=== PATIENT | female | born 1945 | race Caucasian/White ===

== ENCOUNTER 2018-09-11 10:12 | Inpatient (IN) | payer OTHER ==
--- NOTE | 2018-09-11 13:44 | R.PREADM ---
SCREENING DATE AND TIME 09/11/2018 10:24 (SHOP [facility]OUTER) ANTICIPATED REHAB ADMISSION DATE 09/13/2018 REFERRING FACILITY [facility] REFERRAL DATE AND TIME 09/11/2018 10:24 (SHOP ROUTER) REFERRAL ROOM# [id number] ACUTE ADMIT DATE 09/05/2018 Previous Rehabilitation(s): No. REFERRING PHYSICIAN Jose L Downey REHAB FACILITY [facility] CLINICAL LIAISON Shawanda Sepulveda PHYSICIAN REVIEWER Dr. Delmer Gonzalez M.D. MR# [id number] NAME [place] SAND[place] ADDRESS [address] [facility] [place] [address] DATE OF 1945 AGE 73 SSN# [id number] GENDER female MARITAL STATUS RACE white ADMIT FROM 02 - [facility] PRE-HOSPITAL LIVING SETTING 01 - Home (private home/apt. board/care, assisted living, correction, transitional living) HOME TYPE AND DETAILS Type of home: apartment # of levels in the residence: 2 # of steps within the residence: 0 # of steps to enter the residence: 13 PRE-HOSPITAL LIVING WITH Family/Relatives FAMILY SUPPORT Yes PRIMARY FAMILY CONTACT NAME Braulio Espinoza PRIMARY FAMILY CONTACT PHONE PHONE PRIMARY FAMILY CONTACT ON ADM.? no IS PRIMARY FAMILY CONTACT AUTH. REP.? no 1ST EMERGENCY CONTACT Braulio Espinoza 1ST CONTACT PHONE PHONE 1ST CONTACT ON ADM. no IS 1ST CONTACT AUTH. REP.? no PHONE 2ND CONTACT ON ADM.? no PATIENT EMPLOYMENT STATUS Retired (for age) PATIENT EMPLOYER No Employer PAYOR INFORMATION: 1ST PAYOR NAME MEDICARE 1ST PAYOR PHONE [phone] 1ST PAYOR INJURY/ILLNESS DUE TO ACCIDENT? No ANOTHER LIBERTARIAN RESPONSIBLE? 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 is a 73 yo Right-handed white female. On 09/05/2018 she was admitted to [facility] with diagnosis Closed Displaced Midcerv ical Frcature of Right Femur. Her impairment category is Orthopaedic Disorders 08 - Unilateral Hip Fracture (08.11). Pre-morbidly, Pt. was independent/mod-I in Self-Care, Locomotion, Sphincter Control, Transfers Contro l, Communication, and Social Cognition; and she had good Sphincter Control. Currently, she has deficits of Balance, Locomotion, Endurance, Safety Awareness, Transfers Control, a nd Self-Care. Pt. is now referred to [facility] for acute in-patient rehabilitation in order to maximize patient's functional independence in activities of daily living, strength, ROM, and mobi lity. Patient has realistic goal of being discharged at assistance level 6-Josias to reside at Home with Fam alma delia/Relatives. Georgia Sanders is a 73 year old female that lives in a 2nd Floor Apartment with 13 steps up with no elevator with her granddaughter. Patient is ambulatory with the use of cane. On 09/07/2018, she sustained a fall after her shoes got stuck on the carpet and was admitted to [facility] and treated. She is now medically stable but in need of 24-hour nursing, doctor supervision and oversite while receiving active and ongoing is reasonably expected to participate in 3hours of therapy a day/15 hours per week and receive care with an intensive interdisciplinary approach. 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 Treatment - Per Physician's O rders. REVIEW OF SYSTEMS: - Gen Alert and awake Lying in bed No apparent distress Oriented to: person, time, and place - Vital Signs Temperature: 98 F SBP/DBP: 145/65 Pulse: 71 Resp: 16 Vital signs stable, afebrile - CVS RRR VITAL SIGNS Temperature: 98 F SBP/DBP: 145/65 Pulse: 71 Resp: 16 Vital signs stable, afebrile CURRENT SPHINCTER CONTROL: Pre-hospital bladder status: continent # of bladder accidents in the last 7 days prior to screenin Pre-hospital bowel status: continent # of bowel accidents in the last 7 days prior to screenin Last Bowel Movement Date: DETAILED CURRENT FUNCTIONAL STATUS: - Bladder accident frequency: Ind - No accidents in the past 7 days - Bowel accident frequency: Ind - No accidents in the past 7 days - Walking score based on distance walked: 1(<=50ft) - Wheelchair score based on distance traveled: 0(N/A) FUNCTIONAL STATUS: - Self-Care A. Eating Ind Ind B. Grooming Ind Ind C. Bathing Ind sup D. Dressing - Upper Ind sup E. Dressing - Lower Ind modA F. Toileting Ind maxA - Sphincter Control G: Bladder control Ind Ind H: Bowel control Ind Ind - Transfers Control I. Bed/Chair/Wheelchair Ind min-to-modA J. Toilet Ind modA K. Tub/Shower Ind ADNO - Locomotion L. Walk/Wheelchair (C) Ind modA L. Walk/Wheelchair (W) Ind modA M. Stairs Ind ADNO - Communication N. Comprehension (B) Ind Josias O. Expression (B) Ind Josias - Social Cognition P. Social Interaction Ind Josias Q. Problem Solving Ind Josias R. Memory Ind Josias - Endurance Fair - Balance Fair - Safety Awareness Fair CURRENT FUNC. DEFICITS: Balance, Locomotion, Endurance, Safety Awareness, Transfers Control, and Self-Care THERAPY NOTES FROM ACUTE CARE: Attached. SPECIAL NEEDS: - Safety Concerns Skin breakdown precautions needed due to skin breakdown risk PRECAUTIONS: - Posterior Hip Precaution No adduction across midline No external rotation No hip flexion >90 degrees No internal rotation No wheel chair propulsion - Weight Bearing Precaution WBAT right LE PATIENT NEEDS ACTIVE AND ONGOING THERAPEUTIC INTERVENTION OF MULTIPLE THERAPY DISCIPLINES, INCLUDING: - Occupational Therapy Evaluate and Treat. - Physical Therapy Evaluate and Treat. PATIENT NEEDS CLOSE MEDICAL SUPERVISION BY A REHABILITATION PHYSICIAN FOR: Bowel and Bladder Management Coordination of Treatment Team Diabetes Management Medical and Co-Morbidity Management Wound Care DVT Management Pain Management PATIENT REQUIRES 24X7 REHAB NURSING FOR MEDICAL AND FUNCTIONAL MGT. OF THE FOLLOWING DEFICITS: ADL's Ambulation Bowel and Bladder Management Cognition Communication Disease Management Medication Management Patient/Family Education Providing Safe Environment Skin Integrity Transfers Pain Management PATIENT REQUIRES INTENSIVE, COORDINATED INTERDISCIPLINARY APPROACH TO REHAB: Arranging Home Equipment/Services Discharge Planning Family Intervention/Training Gaming Host/Case Management PATIENT REHAB POTENTIAL: Expected level of measurable improvement will be of a practical value to patient's functional capacit y or adaptations to impairments Has a viable Discharge Plan Medically appropriate; condition is sufficiently stable to participate in intensive rehab program Patient is able and expected to receive 3 hours of individualized therapy daily on at least 5 of ever y 7 days Patient's prognosis for significant practical improvement within a reasonable period of time appears Good DISCHARGE PLAN: - Estimated Length of Stay (days) 14. - Consensus on plan Discharge plan has been discussed with primary caregiver. Patient/Family is in agreement with the see n. Primary caregiver is in agreement with the plan. - Patient/Family Goals Return home with assistance. - Planned Living Setting Upon Discharge Home, to live with Family/Relatives. RECOMMENDED CARE LEVEL: IRF RECOMMENDATION DETAILS: Recommended Admission to Comprehensive Rehabilitation Program to Increase Functional [place] SCREENER'S COMPLETENESS CONFIRMATION: - Screening Confirmation The patient data collection on this preadmission screening form is finished PHYSICIANS REVIEW AND ADMISSION DETERMINATION Admit - Based on my review of the Pre-Admission Screening results, in my medical judgment and experie nce, I concur with the findings and recommend admission to [facility], as this patient requires an IRF level of care. SIGNATURE PANEL: Clinical Liaison - [electronically] signed by Shawanda Sepulveda on 09/11/2018 at 10:56 ([facility]OP [facility]TER) Physician Reviewer - [electronically] signed by Dr. Delmer Gonzalez M.D. on 09/11/2018 at 13:44 (SHOP ROUTER )
--- OUTSIDE RECORDS SUMMARY | 2018-09-11 17:31 | XMS REPORT | Clinical Summary ---
:1945 Author Organization [facility] Address [address] [place] [address] Care Team Providers Name Role Phone Jerry Johnson MD Primary Care Provider Allergies No Known Allergies Medications Medication Sig Dispensed Refills Start Date End Date Status metFORMIN Take 1,000 mg 0 Active (GLUCOPHAGE) 1,000 by mouth 2 mg tablet (two) times a day with meals. metoprolol tartrate Take 25 mg by 0 Active (LOPRESSOR) 25 mg mouth 2 (two) tablet times a day. atorvastatin Take 10 mg by 0 Active (LIPITOR) 10 MG mouth nightly. tablet spironolactone Take 50 mg by 0 Active (ALDACTONE) 50 MG mouth daily. tablet loratadine Take 10 mg by 0 Active (CLARITIN) 10 mg mouth nightly. tablet venlafaxine XR Take 150 mg by 0 Active (EFFEXOR-XR) 150 MG mouth 2 (two) 24 hr capsule times a day. BUMETanide (BUMEX) 1 Take 1 mg by 0 Active MG tablet mouth daily. pioglitazone (ACTOS) Take 15 mg by 0 Active 15 MG tablet mouth daily. digOXIN (LANOXIN) Take 125 mcg 0 Active 125 mcg tablet by mouth daily. aspirin (ECOTRIN) 81 Take 81 mg by 0 Active MG enteric coated mouth daily. tablet clopidogrel (PLAVIX) Take 75 mg by 0 Active 75 mg tablet mouth daily. levothyroxine Take 200 mcg 0 Active (SYNTHROID, LEVOXYL) by mouth every 200 mcg tablet morning. docosahexanoic Take by mouth. 0 Active acid/epa (FISH OIL 2 twice a day ORAL) multivitamin with Take 1 tablet 0 Active minerals tablet by mouth daily. galantamine ER Take 1 capsule 30 capsule 5 07/17/2018 Active (RAZADYNE ER) 16 MG (16 mg total) 9 24 hr by mouth daily capsuleIndications: with breakfast Late onset for 90 days. Alzheimer's disease with behavioral disturbance buPROPion XL Take 1 tablet 90 tablet 1 07/17/2018 Active (WELLBUTRIN XL) 150 (150 mg total) 9 MG 24 hr by mouth tabletIndications: daily. Depression, unspecified depression type gabapentin Take 1 capsule 30 capsule 0 09/11/2018 Active (NEURONTIN) 300 mg (300 mg total) 9 capsule by mouth nightly for 30 days. primidone (MYSOLINE) Take 1 tablet 30 tablet 0 09/11/2018 Active 50 MG tablet (50 mg total) 9 by mouth nightly for 30 days. insulin NPH (NovoLIN Inject 51 10 mL 12 09/11/2018 Active N NPH U-100 Insulin) Units under 9 100 unit/mL the skin 2 injection (two) times a day after meals for 30 days. HYDROcodone-acetamin Take 1 tablet 28 tablet 0 09/11/2018 Active ophen (NORCO) 5-325 by mouth every 9 mg per tablet 8 (eight) hours as needed for moderate pain for up to 7 days. Max Daily Amount: 3 tablets levothyroxine Take 175 mcg 0 Discontinued (SYNTHROID, LEVOXYL) by mouth every 8 175 mcg tablet morning. venlafaxine Take 75 mg by 0 Discontinued (EFFEXOR) 75 MG mouth 2 (two) 8 tablet times a day. insulin NPH human Inject under 0 Discontinued isophane (NOVOLIN N the skin. 9 NPH U-100 INSULIN Patient takes SUBQ) 50 in the morning and at night. buPROPion XL Take 1 tablet 30 tablet 3 04/24/2018 Discontinued (WELLBUTRIN XL) 150 (150 mg total) 8 MG 24 hr by mouth tabletIndications: daily. Depression, unspecified depression type galantamine ER Take 1 capsule 30 capsule 2 04/24/2018 Discontinued (RAZADYNE ER) 8 MG (8 mg total) 8 24 hr by mouth daily capsuleIndications: with Late onset breakfast. Alzheimer's disease with behavioral disturbance Active Problems Problem Noted Date Closed displaced midcervical fracture of right femur 09/06/2018 Overview: Added automatically from request for surgery [id number] Closed right hip fracture 09/05/2018 Encounters Date Type Specialty Care Team Description 09/07/2018 Anesthesia Event General Surgery Bradley Bagley MD 09/07/2018 Surgery General Surgery Jose L Downey Right Hip Bipolar MD Reji Hemiarthroplasty 09/06/2018 Transcribe Orders Orthopedic Surgery Jose L Downey Closed displaced MD Reji midcervical fracture of right femur, initial encounter (HCC) (Primary Dx) 09/05/2018 - [facility] Closed displaced 09/11/2018 Encounter Medicine MD Moriah midcervical fracture of Ty, Trungmichel Kenyona right femur, initial MD Cris encounter (HCC) 07/19/2018 Social Work Neurology Sena Arnold LCSW 07/17/2018 Office Visit Neurology Alem, Late onset Alzheimer's disease with behavioral disturbance (Primary Dx); Rochelle Depression, unspecified depression type; MD Olayinka PRINCE (obstructive sleep apnea); Primary insomnia; Multifactorial gait disorder; Diabetic polyneuropathy associated with type 2 diabetes mellitus (HCC); Physical deconditioning 07/10/2018 Telephone Neurology Rochelle Ferrara MD 07/06/2018 Telephone Neurology Rochelle Ferrara MD 06/15/2018 Refill Neurology Melissa Ayala RN 06/14/2018 Refill Neurology Melissa Ayala RN 04/24/2018 Office Visit Neurology Alem, Late onset Alzheimer's disease with behavioral disturbance (Primary Dx); Rochelle Depression, unspecified depression type; MD Olayinka Acquired hypothyroidism; Multifactorial gait disorder; Diabetic polyneuropathy associated with type 2 diabetes mellitus; Physical deconditioning; Primary insomnia; PRINCE (obstructive sleep apnea); Benign essential tremor 03/06/2018 Hospital Radiology [facility], Encounter Rochelle Bhagat MD 03/06/2018 [facility] Radiology [facility], Dementia with Encounter Rochelle behavioral disturbance, MD Olayinka unspecified dementia type 03/06/2018 Hospital Radiology [facility], Primary Parkinsonism Encounter Rochelle Bhagat MD 01/31/2018 Lab Lab [place], Memory impairment; Rochelle Diabetic polyneuropathy associated with type 2 diabetes mellitus MD Olayinka 01/31/2018 Office Visit Neurology Alem, Primary Parkinsonism (Primary Dx ); Rochelle Dementia with behavioral disturbance, unspecified dementia type ; MD Olayinka Memory impairment; PRINCE (obstructive sleep apnea); Multifactorial gait disorder; Diabetic polyneuropathy associated with type 2 diabetes mellitus; Physical deconditioning; Sedentary lifestyle; Depression, unspecified depression type; Anxiety 01/22/2018 Hospital Pulmonology Trung Monroy Obstructive chronic Encounter MD Cris bronchitis without exacerbation 01/22/2018 Hospital Pulmonology Trung Monroy Obstructive chronic Encounter MD Cris bronchitis without exacerbation 01/15/2018 Transcribe Orders Access Trung Monroy chronic MD Cris bronchitis without exacerbation (Primary Dx) after 09/10/2017 Family History Medical History Relation Name Comments Alzheimer's disease Brother Heart attack Father Heart disease Father Parkinsonism Father Alzheimer's disease Mother Relation Name Status Comments Brother Father Mother Social History Tobacco Use Types Packs/Day Years Used Date Never Smoker Smokeless Tobacco: Never Used Tobacco Cessation: Counseling Given: Yes Alcohol Use Drinks/Week oz/Week Comments No Sex Assigned at Date Recorded Not on file Job Start Date Occupation Industry Not on file Not on file Not on file Travel History Travel Start Travel End No recent travel history available. Last Filed Vital Signs Vital Sign Reading Time Taken Blood Pressure 124/58 09/11/2018 11:23 AM SPEECH CORRECTION CONSULTANT Pulse 75 09/11/2018 11:23 AM SPEECH CORRECTION CONSULTANT Temperature 36.7 C (98 F) 09/11/2018 11:23 AM SPEECH CORRECTION CONSULTANT Respiratory Rate 16 09/11/2018 11:23 AM SPEECH CORRECTION CONSULTANT Oxygen Saturation 96% 09/11/2018 11:45 AM SPEECH CORRECTION CONSULTANT Inhaled Oxygen Concentration - - Weight 99.6 kg (219 lb 8 oz) 09/11/2018 3:41 AM SPEECH CORRECTION CONSULTANT Height 170.2 cm (5' 7") 09/05/2018 10:36 PM SPEECH CORRECTION CONSULTANT Body Mass Index 34.38 09/11/2018 3:41 AM SPEECH CORRECTION CONSULTANT Plan of Treatment Date Type Specialty Care Team Description 12/20/2018 Office Visit Neurology Rochelle Ferrara MD [address] [facility] [address] [place] [address] [phone] Health Maintenance Due Date Last Done Comments DIABETIC RETINAL EYE EXAM 1945 DIABETIC FOOT EXAM 1957 URINE MICROALBUMIN 1957 BREAST CANCER SCREENING 1997 COLON CANCER SCREENING 1997 SHINGLES VACCINES (1 of 2) 1997 PNEUMOCOCCAL POLYSACCHARIDE VACCINE AGE 65 AND OVER 2012 PNEUMOCOCCAL-13 2012 INFLUENZA VACCINE 03/07/2018 Implants Implanted Type Area Manager Fire Device Shelf Model / Serial / Lot Identifier Expiration Date Head Fml Tprd Co-Cr 28x0mm V40 Lfit - [id number] Hip Joint Right NIURKA 05/30/2023 [id number] / Implanted: Qty: 1 on 09/07/2018 by Jose L Downey MD Implants : Hip ORTHOPEDICS / [id number] Size 6 Accolade Ii 132 Deg, Hip Stem - [id number] IPM Right NIURKA 01/30 [id number] / Implanted: Qty: 1 on 09/07/2018 by Jose L Downey MD IMPLANT : Hip ORTHOPEDICS / DEVICES [id number] Uhr Bipolar [id number] - [id number] IPM Right NIURKA 03/23/2023 [id number] / Implanted: Qty: 1 on 09/07/2018 by Jose L Downey MD IMPLANT : Hip ORTHOPEDICS / DEVICES [id number] Procedures Procedure Name Priority Date/Time Associated Comments Diagnosis POC GLUCOSE Routine 09/11/2018 12:43 Results for this PM SPEECH CORRECTION CONSULTANT procedure are in the results section. ESTIMATED GFR Routine 09/11/2018 5:10 Results for this AM SPEECH CORRECTION CONSULTANT procedure are in the results section. BASIC METABOLIC PANEL Routine 09/11/2018 5:10 Results for this AM SPEECH CORRECTION CONSULTANT procedure are in the results section. CBC WITH PLATELET AND Routine 09/11/2018 5:10 Results for this DIFFERENTIAL AM SPEECH CORRECTION CONSULTANT procedure are in the results section. POC GLUCOSE Routine 09/10/2018 5:08 Results for this PM SPEECH CORRECTION CONSULTANT procedure are in the results section. POC GLUCOSE Routine 09/10/2018 12:09 Results for this PM SPEECH CORRECTION CONSULTANT procedure are in the results section. POC GLUCOSE Routine 09/10/2018 6:39 Results for this AM SPEECH CORRECTION CONSULTANT procedure are in the results section. POC GLUCOSE Routine 09/09/2018 10:10 Results for this PM SPEECH CORRECTION CONSULTANT procedure are in the results section. POC GLUCOSE Routine 09/09/2018 5:08 Results for this PM SPEECH CORRECTION CONSULTANT procedure are in the results section. POC GLUCOSE Routine 09/09/2018 12:32 Results for this PM SPEECH CORRECTION CONSULTANT procedure are in the results section. POC GLUCOSE Routine 09/09/2018 5:47 Results for this AM SPEECH CORRECTION CONSULTANT procedure are in the results section. CBC HEMOGRAM Routine 09/09/2018 5:20 Results for this AM SPEECH CORRECTION CONSULTANT procedure are in the results section. POC GLUCOSE Routine 09/08/2018 10:19 Results for this PM SPEECH CORRECTION CONSULTANT procedure are in the results section. POC GLUCOSE Routine 09/08/2018 5:28 Results for this PM SPEECH CORRECTION CONSULTANT procedure are in the results section. POC GLUCOSE Routine 09/08/2018 11:37 Results for this AM SPEECH CORRECTION CONSULTANT procedure are in the results section. POC GLUCOSE Routine 09/08/2018 6:07 Results for this AM SPEECH CORRECTION CONSULTANT procedure are in the results section. ESTIMATED GFR Routine 09/08/2018 6:00 Results for this AM SPEECH CORRECTION CONSULTANT procedure are in the results section. BASIC METABOLIC PANEL Routine 09/08/2018 6:00 Results for this AM SPEECH CORRECTION CONSULTANT procedure are in the results section. HC COMPLETE BLD COUNT Routine 09/08/2018 6:00 Results for this W/AUTO DIFF AM SPEECH CORRECTION CONSULTANT procedure are in the results section. POC GLUCOSE Routine 09/07/2018 8:52 Results for this PM SPEECH CORRECTION CONSULTANT procedure are in the results section. POC GLUCOSE Routine 09/07/2018 3:49 Results for this PM SPEECH CORRECTION CONSULTANT procedure are in the results section. XR PELVIS 1 OR 2 VW Routine 09/07/2018 3:09 Results for this PM SPEECH CORRECTION CONSULTANT procedure are in the results section. POC GLUCOSE Routine 09/07/2018 2:35 Results for this PM SPEECH CORRECTION CONSULTANT procedure are in the results section. XR PELVIS 1 OR 2 VW Routine 09/07/2018 1:38 Results for this PM SPEECH CORRECTION CONSULTANT procedure are in the results section. OK AN ELECTIVE Routine 09/07/2018 12:29 ENDOTRACHEAL AIRWAY PM SPEECH CORRECTION CONSULTANT Procedure Note - Steve Lyn CRNA - 09/07/2018 12:29 PM SPEECH CORRECTION CONSULTANT ANESTHESIA INTUBATION Date/Time: 09/07/2018 12:20 PM Performed by: Steve Lyn CRNA Authorized by: Bradley Bagley MD Location: OR Urgency: Elective Difficult Airway: No Anesthesiologist: Bradley Bagley MD Resident/DIRECTOR REGULATORY AFFAIRS/AA: Steve Lyn CRNA Performed by: anesthesiologist and resident/DIRECTOR REGULATORY AFFAIRS/AA Preoxygenated with 100% O2: Yes C-spine Precautions Maintained Throughout: Yes Mask Ventilation: Assisted mask Final Airway Type: Endotracheal airway Final Endotracheal Airway: ETT Cuffed: Yes Technique Used: Direct laryngoscopy Devices/Methods Used in Placement: Intubating stylet Insertion Site: Oral Blade Type: Jauregui Laryngoscope Blade/Videolaryngoscope Blade Size: 2 ETT Size (mm): 7.0 Cuff at minimum occlusion pressure: Yes Measured from: Lips ETT to Lips (cm): 22 Placement Verified by: CO2 detection, direct visualization and equal breath sounds Laryngoscopic view: Grade IIa - partial view of glottis Rapid Sequence Induction (RSI): No Modified RSI: No Number of Attempts at Approach: 1 POC GLUCOSE Routine 09/07/2018 11:07 Results for this AM SPEECH CORRECTION CONSULTANT procedure are in the results section. ECG PRE/POST OP Routine 09/07/2018 8:44 Results for this AM SPEECH CORRECTION CONSULTANT procedure are in the results section. POC GLUCOSE Routine 09/07/2018 5:38 Results for this AM SPEECH CORRECTION CONSULTANT procedure are in the results section. TYPE AND SCREEN Routine 09/07/2018 4:50 Results for this AM SPEECH CORRECTION CONSULTANT procedure are in the results section. PROTHROMBIN TIME WITH Routine 09/07/2018 4:50 Results for this INR AM SPEECH CORRECTION CONSULTANT procedure are in the results section. ESTIMATED GFR Routine 09/07/2018 4:50 Results for this AM SPEECH CORRECTION CONSULTANT procedure are in the results section. BASIC METABOLIC PANEL Routine 09/07/2018 4:50 Results for this AM SPEECH CORRECTION CONSULTANT procedure are in the results section. HC COMPLETE BLD COUNT Routine 09/07/2018 4:50 Results for this W/AUTO DIFF AM SPEECH CORRECTION CONSULTANT procedure are in the results section. POC GLUCOSE Routine 09/07/2018 2:04 Results for this AM SPEECH CORRECTION CONSULTANT procedure are in the results section. POC GLUCOSE Routine 09/06/2018 8:44 Results for this PM SPEECH CORRECTION CONSULTANT procedure are in the results section. XR FEMUR 2 VW RIGHT Routine 09/06/2018 4:36 Results for this PM SPEECH CORRECTION CONSULTANT procedure are in the results section. POC GLUCOSE Routine 09/06/2018 4:06 Results for this PM SPEECH CORRECTION CONSULTANT procedure are in the results section. POC GLUCOSE Routine 09/06/2018 11:33 Results for this AM SPEECH CORRECTION CONSULTANT procedure are in the results section. POC GLUCOSE Routine 09/06/2018 5:56 Results for this AM SPEECH CORRECTION CONSULTANT procedure are in the results section. B NATRIURETIC PEPTIDE Routine 09/06/2018 5:30 Results for this AM SPEECH CORRECTION CONSULTANT procedure are in the results section. XR HIP 2-3 VIEWS Routine 09/06/2018 5:07 Results for this RIGHT AM SPEECH CORRECTION CONSULTANT procedure are in the results section. POC GLUCOSE Routine 09/06/2018 2:03 Results for this AM SPEECH CORRECTION CONSULTANT procedure are in the results section. POC GLUCOSE Routine 09/06/2018 12:16 Results for this AM SPEECH CORRECTION CONSULTANT procedure are in the results section. URINALYSIS SCREEN AND Routine 09/05/2018 10:30 Results for this MICROSCOPY, WITH PM SPEECH CORRECTION CONSULTANT procedure are in REFLEX TO CULTURE the results section. URINE CULTURE Routine 09/05/2018 10:30 Results for this PM SPEECH CORRECTION CONSULTANT procedure are in the results section. POC GLUCOSE Routine 09/05/2018 10:01 Results for this PM SPEECH CORRECTION CONSULTANT procedure are in the results section. NM BRAIN SPECT W I Routine 03/06/2018 2:10 Primary Parkinsonism Results for this 123 DATSCAN PM CDT procedure are in the results section. MRI BRAIN WO CONTRAST Routine 03/06/2018 12:15 Dementia with Results for this PM CDT behavioral procedure are in disturbance, the results unspecified dementia section. type ZZESTIMATED GFR Routine 01/31/2018 3:15 Results for this PM CDT procedure are in the results section. HEMOGLOBIN A1C Routine 01/31/2018 3:15 Diabetic Results for this PM CDT polyneuropathy procedure are in associated with type 2 the results diabetes mellitus section. COMPREHENSIVE Routine 01/31/2018 3:15 Memory impairment Results for this METABOLIC PANEL PM CDT procedure are in the results section. VITAMIN B12 LEVEL Routine 01/31/2018 3:15 Memory impairment Results for this PM CDT procedure are in the results section. THYROID STIMULATING Routine 01/31/2018 3:15 Memory impairment Results for this HORMONE PM CDT procedure are in the results section. T4, FREE Routine 01/31/2018 3:15 Memory impairment Results for this PM CDT procedure are in the results section. HOMOCYSTINE, PLASMA Routine 01/31/2018 3:15 Memory impairment Results for this PM CDT procedure are in the results section. FOLATE LEVEL Routine 01/31/2018 3:15 Memory impairment Results for this PM CDT procedure are in the results section. HC COMPLETE BLD COUNT Routine 01/31/2018 3:15 Memory impairment Results for this W/AUTO DIFF PM CDT procedure are in the results section. ARTERIAL BLOOD GAS Routine 01/22/2018 2:07 Obstructive chronic Results for this PM CDT bronchitis without procedure are in exacerbation the results section. SPIROMETRY, Routine 01/22/2018 12:47 Obstructive chronic DIFFUSION, LUNG PM CDT bronchitis without VOLUMES exacerbation after 09/10/2017 Results POC glucose (09/11/2018 12:43 PM SPEECH CORRECTION CONSULTANT)Only the most recent of25 resultswithin the time period is included. POC glucose 300 (H) 65 - 99 mg/dL [facility] Comment: HOSPITAL RN Notified Meter ID: [id number] Retail Service Specialist: Jani Barry Performing Organization Address City/[facility] [email or web address] Phone Number [facility] [address] [place] [address] Estimated GFR (09/11/2018 5:10 AM SPEECH CORRECTION CONSULTANT)Only the most recent of3 resultswithin the time period is included. Estimated GFR 80 mL/min/1.73 m2 [facility] Comment: [facility] CatergoryUnitsInterpretation G1 >=90 Normal or high G2 60-89Mildly decreased [id number] to moderately decreased [id number] to severely decreased G4 15-29Severely decreased G5 <15Kidney failure The eGFR was calculated using the Chronic Kidney Disease Epidemiology Collaboration (CKD-EPI) equation. Interpretation is based on recommendations of the National Kidney Foundation-Kidney Disease Outcomes Quality Initiative (NKF-KDOQI) published in 2014. Specimen Plasma specimen Performing Organization Address City/[facility]/Zipcode Phone Number [facility] [address] [place] [address] CBC with platelet and differential (09/11/2018 5:10 AM SPEECH CORRECTION CONSULTANT)Only the most recent of4 resultswithin the time period is included. WBC 8.7 4.5 - 11.0 k/uL [facility] RBC 3.13 (L) 4.20 - 5.50 m/uL [facility] HGB 9.4 (L) 12.0 - 16.0 g/dL [facility] HCT 29.2 (L) 37.0 - 47.0 % [facility] MCV 93.3 82.0 - 100.0 fL [facility] MCH 30.0 27.0 - 34.0 pg [facility] MCHC 32.2 31.0 - 37.0 g/dL [facility] RDW - SD 47.0 37.0 - 55.0 fL [facility] MPV 10.4 6.9 - 11.0 fL [facility] Platelet count 193 150 - 400 K/uL [facility] Nucleated RBC 0.00 /100 WBC [facility] Neutrophils 64.9 39.0 - 69.0 % [facility] Lymphocytes 23.2 (L) 25.0 - 45.0 % [facility] Monocytes 8.2 0.0 - 10.0 % [facility] Eosinophils 2.4 0.0 - 5.0 % [facility] Basophils 0.5 0.0 - 1.0 % [facility] Immature granulocytes 0.8 0.0 - 1.0 % [facility] Specimen Blood Performing Organization Address City/State/Zipcode Phone Number [facility] [address] [place] [address] AND GENOMIC MEDICINE [facility] [address] [place] [address] HOSPITAL Basic metabolic panel (09/11/2018 5:10 AM SPEECH CORRECTION CONSULTANT)Only the most recent of3 resultswithin the time period is included. Sodium 137 135 - 148 mEq/L [facility] Potassium 3.9 3.5 - 5.0 mEq/L [facility] Chloride 98 98 - 112 mEq/L [facility] CO2 29 24 - 31 mEq/L [facility] Anion gap 10@ANIO 7 - 15 mEq/L [facility] BUN 14 8 - 23 mg/dL [facility] Creatinine 0.75 0.50 - 0.90 mg/dL [facility] Glucose 143 (H) 65 - 99 mg/dL [facility] Calcium 8.8 8.8 - 10.2 mg/dL [facility] Specimen Plasma specimen Performing Organization Address City/[facility] [email or web address] Phone Number [facility] [address] [place] [address] CBC hemogram (09/09/2018 5:20 AM SPEECH CORRECTION CONSULTANT) WBC 11.1 (H) 4.5 - 11.0 k/uL [facility] RBC 3.40 (L) 4.20 - 5.50 m/uL [facility] HGB 10.1 (L) 12.0 - 16.0 g/dL [facility] HCT 30.8 (L) 37.0 - 47.0 % [facility] MCV 90.6 82.0 - 100.0 fL [facility] MCH 29.7 27.0 - 34.0 pg [facility] MCHC 32.8 31.0 - 37.0 g/dL [facility] RDW - SD 47.0 37.0 - 55.0 fL [facility] MPV 10.4 6.9 - 11.0 fL [facility] Platelet count 172 150 - 400 K/uL [facility] Nucleated RBC 0.00 /100 WBC [facility] Specimen Blood Performing Organization Address City/[facility] [email or web address] Phone Number [facility] [address] [place] [address] XR Pelvis 1 Or 2 Vw (09/07/2018 3:09 PM SPEECH CORRECTION CONSULTANT)Only the most recent of2 resultswithin the time period is included. Narrative Performed At EXAMINATION:XR PELVIS 1 OR 2 VW [facility] INDICATION:Post Op COMPARISON: Right femur radiographs from September 06, 2018 IMPRESSION: Interval cementless right hip hemiarthroplasty. No immediate hardware complications. Lucency at the intertrochanteric region is likely postoperative. Soft tissue gas compatible with perioperative state. [facility]-[id number] Procedure Note Hm Interface, Radiology Results Incoming - 09/07/2018 3:23 PM SPEECH CORRECTION CONSULTANT EXAMINATION: XR PELVIS 1 OR 2 VW INDICATION: Post Op COMPARISON: Right femur radiographs from September 06, 2018 IMPRESSION: Interval cementless right hip hemiarthroplasty. No immediate hardware complications. Lucency at the intertrochanteric region is likely postoperative. Soft tissue gas compatible with perioperative state. [facility]-[id number] Performing Organization Address [facility] [email or web address] Phone Number [facility] [address] [place] [address] ECG Pre/Post Op (09/07/2018 8:44 AM SPEECH CORRECTION CONSULTANT) Ventricular rate 75 [facility] Atrial rate 75 [facility] OK interval 162 [facility] QRSD interval 98 [facility] QT interval 370 [facility] QTC interval 413 [facility] P axis 1 76 [facility] QRS axis 1 -37 [facility] T wave axis 73 [facility] EKG impression Normal sinus rhythm-Left axis deviation-Anteroseptal infarct ( cited on or before 07-OCT-2014)-Abnormal ECG-In automated comparison with ECG of 13-MAR-2016 00:24,-Questionable change in initial forces of Anterior leads- Nonspecific T wave abnormality, [facility] improved in Anterior leads- Narrative Performed At Performing Organization Address [facility] Phone Number [facility] M[facility] [address] [place] [address] Prothrombin time with INR (09/07/2018 4:50 AM SPEECH CORRECTION CONSULTANT) Prothrombin time 13.4 11.5 - 14.5 sec [facility] INR 1.1 [facility] Comment: [facility] The International Normalized Ratio (INR) is a therapeutic monitoring tool for patients who are stable on oral anticoagulant therapy. An INR of 2.0-3.0 is suggested for deep vein thrombosis/pulmonary embolism. Specimen Blood Performing Organization Address [facility]/Zipcode Phone Number [facility] [address] [place] [address] AND GENOMIC MEDICINE [facility] [address] [place] [address] HOSPITAL Type and screen (09/07/2018 4:50 AM SPEECH CORRECTION CONSULTANT) ABO grouping A [facility] Rh type POS [facility] Antibody screen (gel) NEG [facility] Specimen Blood Performing Organization Address City/[facility] [email or web address] Phone Number [facility] [address] [place] [address] XR Femur 2 Vw Right (09/06/2018 4:36 PM SPEECH CORRECTION CONSULTANT) Narrative Performed At Examination: XR FEMUR 2 VW RIGHT [facility] Clinical history: Fracturefemur Comparison: None Impression: 1. There is no fracture or acute osseous pathology. 2. 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 3. If there is high or persistent concern for subcapital femoral fracture, right hip series should be considered. [facility]-[id number] Procedure Note Interface, Radiology Results Incoming - 09/06/2018 5:34 PM SPEECH CORRECTION CONSULTANT Examination: XR FEMUR 2 VW RIGHT Clinical history: Fracture femur Comparison: None Impression: 1. There is no fracture or acute osseous pathology. 2. 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 3. If there is high or persistent concern for subcapital femoral fracture, right hip series should be considered. [facility]-[id number] Performing Organization Address City/[facility]/Zipcode Phone Number [facility] [address] [place] [address] B natriuretic peptide (09/06/2018 5:30 AM SPEECH CORRECTION CONSULTANT) BNP 58 0 - 100 pg/mL [facility] Specimen Blood Performing Organization Address City/[facility]/Zipcode Phone Number [facility] [address] [place] [address] XR Hip 2-3 View Right (09/06/2018 5:07 AM SPEECH CORRECTION CONSULTANT) Narrative Performed At EXAMINATION:XR HIP 2-3 VIEWS RIGHT [facility] CLINICAL HISTORY:right hip fracture COMPARISON:None IMPRESSION: There is mildly impacted subcapital fracture of the right hip. Pelvis and left hip are intact. Mildly demineralized. [facility]-[id number] Procedure Note Interface, Radiology Results Incoming - 09/06/2018 6:53 AM SPEECH CORRECTION CONSULTANT EXAMINATION: XR HIP 2-3 VIEWS RIGHT CLINICAL HISTORY: right hip fracture COMPARISON: None IMPRESSION: There is mildly impacted subcapital fracture of the right hip. Pelvis and left hip are intact. Mildly demineralized. [facility]-[id number] Performing Organization Address City/State/Zipcode Phone Number [facility] [address] [place] [address] Urinalysis screen and microscopy, with reflex to culture (09/05/2018 10:30 PM SPEECH CORRECTION CONSULTANT) Specimen site Catheterized [facility] Color, UA Yellow [facility] Appearance, UA Clear [facility] Specific gravity, UA 1.014 1.001 - 1.030 [facility] pH, UA 8.0 5.0 - 9.0 [facility] Protein, UA Negative Negative [facility] Glucose, UA Negative Negative [facility] Ketones, UA Trace (A) Negative [facility] Bilirubin, UA Negative Negative [facility] Blood, UA Negative Negative [facility] Nitrite, UA Negative Negative [facility] Urobilinogen, UA <2.0 <2.0 E.U./dL [facility] Leukocyte esterase, UA Negative Negative [facility] Round epithelial cells, UA <1 0 - 5 /HPF [facility] WBC, UA 1 0 - 4 /HPF [facility] RBC, UA 5 0 - 5 /HPF [facility] Bacteria, UA None seen None seen [facility] Yeast, UA None seen [facility] Yeast with pseudohyphae, UA None seen [facility] Specimen Urine Performing Organization Address City/[facility]/Zipcode Phone Number [facility] [address] [place] [address] AND [facility] MEDICINE [facility] [id number] [place] [address] HOSPITAL Urine culture (09/05/2018 10:30 PM SPEECH CORRECTION CONSULTANT) Urine culture SEE COMMENTComment: Bacteriuria [facility] screen negative. HOSPITAL Performing Organization Address City/[facility]/Zipcode Phone Number [facility] [address] [place] [address] AND [facility] [address] [facility] [address] Brain Spect W I 123 Datscan (03/06/2018 2:10 PM CDT) Narrative Performed At PROCEDURE:NM BRAIN SPECT W I 123 DATSCAN [facility] INDICATION:Tremor.Primary parkinsonism. TECHNIQUE: The patient was pretreated with potassium iodide drops for thyroid protection and then injected with 4 mCi of I-123 DaTscan IV. Brain SPECT imaging was then performed. FINDINGS:Striatal uptake appears normal, bilaterally. IMPRESSION: 1.Negative study.No evidence for an underlying primary Parkinsonian syndrome. [facility]-[id number] Procedure Note Interface, Radiology Results Incoming - 03/06/2018 5:59 PM CDT PROCEDURE: NM BRAIN SPECT W I 123 DATSCAN INDICATION: Tremor. Primary parkinsonism. TECHNIQUE: The patient was pretreated with potassium iodide drops for thyroid protection and then injected with 4 mCi of I-123 DaTscan IV. Brain SPECT imaging was then performed. FINDINGS: Striatal uptake appears normal, bilaterally. IMPRESSION: 1. Negative study. No evidence for an underlying primary Parkinsonian syndrome. [facility]-[id number] Performing Organization Address City/State/Zipcode Phone Number [facility] [address] [place] [address] MRI Brain Wo Contrast (03/06/2018 12:15 PM CDT) Narrative Performed At EXAMINATION: MRI BRAIN WO CONTRAST [facility] CLINICAL HISTORY: F03.91 Unspecified dementia with behavioral disturbance, memory impairment COMPARISON:None TECHNIQUE: Multiplanar and multisequence MRI imaging of the brain was obtained without contrast. FINDINGS: No evidence of acute intracranial hemorrhage, mass, mass effect, acute infarct or midline shift. 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 Ventricles and sulci are normal in appearance for patient's age. No abnormal susceptibility. Basal cisterns are clear. Major intracranial flow voids are maintained. Bilateral lens extractions. Visualized paranasal sinuses and mastoid air cells are clear. IMPRESSION: 1. No acute intracranial abnormality. [facility]-[id number] Procedure Note Interface, Radiology Results Incoming - 03/06/2018 1:29 PM CDT EXAMINATION: MRI BRAIN WO CONTRAST CLINICAL HISTORY: F03.91 Unspecified dementia with behavioral disturbance, memory impairment COMPARISON: None TECHNIQUE: Multiplanar and multisequence MRI imaging of the brain was obtained without contrast. FINDINGS: No evidence of acute intracranial hemorrhage, mass, mass effect, acute infarct or midline shift. 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 Ventricles and sulci are normal in appearance for patient's age. No abnormal susceptibility. Basal cisterns are clear. Major intracranial flow voids are maintained. Bilateral lens extractions. Visualized paranasal sinuses and mastoid air cells are clear. IMPRESSION: 1. No acute intracranial abnormality. [id number] Performing Organization Address [facility] [email or web address] Phone Number [facility] [address] [place] [phone] Homocystine, plasma (01/31/2018 3:15 PM CDT) Homocysteine 10.1 0.0 - 15.0 umol/L [facility] DEPARTMENT OF Comment: PATHOLOGY AND GENOMIC The risk for coronary vascular disease increases progressively MEDICINE with homocysteine concentration.A 3.4 times greater risk is associated with a homocysteine concentration of greater than 15.8 umol/L as compared to a concentration below 14.1 umol/L. Specimen Plasma specimen Performing Organization Address [facility] [[email or web address] Phone Number [facility] DEPARTMENT [facility]OLOGY AND [address] [place] [address] [facility] Estimated GFR (01/31/2018 3:15 PM CDT) GFR Non Af Amer 71 mL/min/1.73 m2 [facility] DEPARTMENT OF PATHOLOGY AND [facility] GFR Af Amer 86 mL/min/1.73 m2 [facility] DEPARTMENT OF Comment: PATHOLOGY AND GENOMIC Chronic kidney disease: <60 mL/min/1.73m2 MEDICINE Kidney failure: <15 mL/min/1.73m2 The estimated GFR is calculated from the IDMS-traceable Modification of Diet in Renal Disease Equation. The accuracy of the calculation is poor when the creatinine is normal. Calculated values >90 mL/min/1.73m2 are not reported. This equation has not been validated in children (<18 years), women, the elderly (>70 years), or ethnic groups other than Caucasians and Americans. Specimen Plasma specimen Performing Organization Address [facility] [[email or web address] Phone Number [facility] DEPARTMENT OF [facility]OLOGY AND [address] [place] [address] [facility] Thyroid stimulating hormone (01/31/2018 3:15 PM CDT) TSH 14.34 (H) 0.27 - 4.20 uIU/mL [facility] DEPARTMENT OF PATHOLOGY AND GENOMIC MEDICINE Specimen Plasma specimen Performing Organization Address City/[facility] [[email or web address] Phone Number [facility] DEPARTMENT OF [facility]OLOGY AND [address] [place] [address] T4, free (01/31/2018 3:15 PM CDT) T4, free 1.1 0.9 - 1.7 ng/dL [facility] DEPARTMENT OF PATHOLOGY AND [facility] Specimen Plasma specimen Performing Organization Address [facility] [[email or web address] Phone Number [facility] DEPARTMENT OF [facility]OLOGY AND [address] [place] [address] Hemoglobin A1c (01/31/2018 3:15 PM CDT) Hemoglobin A1C 10.0 (H) 4.0 - 5.6 % [facility]OLOGY Comment: AND [facility] HbA1c cutoffs for diagnosing diabetes: 4.0% - 5.6%=normal 5.7% - 6.4%=increased risk for diabetes (prediabetes) >=6.5%=diabetes Goals for glycemic control (ADA 2016) < 7.0%Target for non adults with diabetes. More or less stringent targets may be appropriate for individual patients. <7.5% Target for Children and adolescents with type 1 diabetes. Specimen Blood Performing Organization Address [facility] Phone Number [facility] DEPARTMENT OF [facility]OLOGY AND [address] [place] [address] Folate level (01/31/2018 3:15 PM CDT) Folate 15.8 4.8 - 24.2 ng/mL [facility] DEPARTMENT OF PATHOLOGY AND [employer] [facility] Specimen Serum Performing Organization Address [facility] [email or web address] Phone Number [facility] DEPARTMENT OF PATHOLOGY AND [address] [place] [address] Vitamin B12 level (01/31/2018 3:15 PM CDT) Vitamin B12 411 211 - 946 pg/mL [facility] DEPARTMENT OF [facility]OLOGY Comment: AND [employer] [facility] Significant overlap exists between normal and deficiency states. However, most patients with deficiencies will have Serum B12 <200 pg/mL. Specimen Serum Performing Organization Address [facility] [[email or web address] Phone Number [facility] DEPARTMENT OF PATHOLOGY AND [address] [place] [address] Comprehensive metabolic panel (01/31/2018 3:15 PM CDT) Sodium 137 135 - 148 mEq/L [facility] DEPARTMENT OF PATHOLOGY AND GENOMIC MEDICINE Potassium 3.7 3.5 - 5.0 mEq/L [facility] DEPARTMENT OF PATHOLOGY AND GENOMIC MEDICINE Chloride 94 (L) 98 - 112 mEq/L [facility] DEPARTMENT OF PATHOLOGY AND GENOMIC MEDICINE CO2 30 24 - 31 mEq/L [facility] DEPARTMENT OF PATHOLOGY AND GENOMIC MEDICINE Anion gap 13@ANIO 7 - 15 mEq/L [facility] DEPARTMENT OF PATHOLOGY AND GENOMIC MEDICINE BUN 21 8 - 23 mg/dL [facility] DEPARTMENT OF PATHOLOGY AND GENOMIC MEDICINE Creatinine 0.8 0.5 - 0.9 mg/dL [facility] DEPARTMENT OF PATHOLOGY AND GENOMIC MEDICINE Glucose 216 (H) 65 - 99 mg/dL [facility] DEPARTMENT OF PATHOLOGY AND GENOMIC MEDICINE Calcium 9.9 8.8 - 10.2 mg/dL [facility] DEPARTMENT OF PATHOLOGY AND GENOMIC MEDICINE Protein 6.9 6.3 - 8.3 g/dL [facility] DEPARTMENT OF Comment: PATHOLOGY AND GENOMIC 4.6-7.0 g/dL MEDICINE 1 week 4.4-7.6 g/dL 7 months-1year5.1-7.3 g/dL 1-2 years5.6-7.5 g/dL >3 years6.0-8.0 g/dL 18-150 6.3-8.3 g/dL Albumin 3.8 3.5 - 5.0 g/dL [facility] DEPARTMENT OF PATHOLOGY AND GENOMIC MEDICINE A/G ratio 1.2 0.7 - 3.8 [facility] DEPARTMENT OF PATHOLOGY AND GENOMIC MEDICINE Alkaline phosphatase 65 35 - 104 U/L [facility] DEPARTMENT OF PATHOLOGY AND GENOMIC MEDICINE AST 13 10 - 35 U/L [facility] DEPARTMENT OF PATHOLOGY AND GENOMIC MEDICINE ALT 12 5 - 50 U/L [facility] DEPARTMENT OF PATHOLOGY AND GENOMIC MEDICINE Total bilirubin 0.5 0.0 - 1.2 mg/dL [facility] DEPARTMENT OF PATHOLOGY AND GENOMIC MEDICINE Specimen Plasma specimen Performing Organization Address City/State/Zipcode Phone Number [facility] DEPARTMENT OF PATHOLOGY AND [address] [place] [address] [facility] Arterial blood gas (01/22/2018 2:07 PM CDT) pH, arterial 7.45 7.35 - 7.45 [facility] DE[facility] AND GENOMIC MEDICINE pCO2, arterial 39 35 - 45 mmHg [facility] DE[facility] OF [facility]OLOGY AND GENOMIC MEDICINE pO2, arterial 92 (H) 80 - 90 mmHg [facility] DEPART[facility] OF PATHOLOGY AND GENOMIC MEDICINE Bicarbonate, arterial 26.3 21.0 - 28.0 mmol/L [facility] DE[facility] OF [facility]OLOGY AND GENOMIC MEDICINE Base excess, arterial 3 (H) -2 - 2 mEq/L [facility] DE[facility] OF [facility]OLOGY AND GENOMIC MEDICINE O2 saturation, arterial 97 95 - 100 % [facility] DEPART[facility] OF [facility]OLOGY AND GENOMIC MEDICINE Specimen Blood Performing Organization Address City/State/Zipcode Phone Number [facility] [address] [place] [address] AND GENOMIC MEDICINE after 09/10/2017 Insurance Payer Benefit Plan / Group Subscriber ID Type Phone Address MEDICARE MEDICARE PART A AND B xxxxxxxxxx Medicare [place], [place] [phone] (Work) Advance Directives For more information, please contact:Alexandru Angulo[address] [place] [address] Code Status Date Activated Date Inactivated Comments Full Code 09/07/2018 3:45 PM Code Status decision reached by: Patient
--- OUTSIDE RECORDS SUMMARY | 2018-09-11 17:31 | XMS REPORT | Clinical Summary ---
:1945 Author Organization [facility] Address [address] [place] [address] Care Team Providers Name Role Phone Ajit Lancaster Primary Care Provider Unavailable Allergies No Known Allergies Medications Not on file Active Problems Not on file Encounters Date Type Specialty Care Team Description 01/15/2018 Hospital Encounter Trung Monroy Jr. Simple chronic bronchitis (LONNIE) 01/15/2018 Outside Orders Trung Monroy Jr. Simple chronic bronchitis (LONNIE) (Primary Dx) after 09/10/2017 Social History Tobacco Use Types Packs/Day Years Used Date Never Assessed Sex Assigned at Date Recorded Not on file Job Start Date Occupation Industry Not on file Not on file Not on file Travel History Travel Start Travel End No recent travel history available. Last Filed Vital Signs Not on file Plan of Treatment Not on file Procedures Procedure Name Priority Date/Time Associated Diagnosis Comments XR CHEST 2 VIEWS Routine 01/15/2018 1:13 PM Simple chronic Results for this CDT bronchitis (HCC) procedure are in the results section. after 09/10/2017 Results XR Chest 2 Views (01/15/2018 1:13 PM CDT) Narrative Performed At FINAL REPORT [facility] TECHNIQUE: 2 views of the chest. COMPARISON: None FINDINGS: The cardiac silhouette is within normal limits.Mediastinum is unremarkable. Lungs are clear.Wedge deformity of the lower thoracic vertebral body noted, likely old.. Soft tissues appear unremarkable. IMPRESSION: No acute cardiopulmonary disease. Signed: Robert Tapia MD Report Verified Date/Time:01/15/2018 13:41:17 Reading Location: [facility] Radiology Reading Room Procedure Note Interface, External Ris In - 01/15/2018 1:43 PM CDT FINAL REPORT TECHNIQUE: 2 views of the chest. COMPARISON: None FINDINGS: The cardiac silhouette is within normal limits. Mediastinum is unremarkable. Lungs are clear. Wedge deformity of the lower thoracic vertebral body noted, likely old.. Soft tissues appear unremarkable. IMPRESSION: No acute cardiopulmonary disease. Signed: Robert Tapia MD Report Verified Date/Time: 01/15/2018 13:41:17 Reading Location: [facility] Radiology Reading Room Performing Organization Address City/State/Zipcode Phone Number GE RIS after 09/10/2017 Insurance Payer Benefit Plan / Group Subscriber ID Type Phone Address MEDICARE MEDICARE A B xxxxxxxxxx Medicare
--- OUTSIDE RECORDS SUMMARY | 2018-09-11 17:32 | XMS REPORT ---
:1945 [facility] Address [address] [place] [address] Care Team Providers Name Role Phone Unavailable Unavailable Unavailable Problems This patient has no known problems. Allergies, Adverse Reactions, Alerts This patient has no known allergies or adverse reactions. Medications This patient has no known medications. Results Test Description Test Time Test Comments Text Results Atomic Results Result Comments RAD, CHEST, 2 2018-01-15 13:41:00 Reason for FINAL REPORT PATIENT ID: VIEWS Exam:->copd [id number] TECHNIQUE: 2 views of the chest. COMPARISON: None FINDINGS: The cardiac silhouette is within normal limits. Mediastinum is unremarkable. Lungs are clear. Wedge deformity of the lower thoracic vertebral body noted, likely old.. Soft tissues appear unremarkable. IMPRESSION: No acute cardiopulmonary disease. Signed: Robert Mosqueda MDReport Verified Date/Time: 01/15/2018 13:41:17 Reading Location: [facility] Radiology Reading Room
--- OUTSIDE RECORDS SUMMARY | 2018-09-11 17:32 | XMS REPORT | Continuity of Care Document ---
:1945 Author Organization [facility] Address [address] [place] [address] Phone Unavailable Care Team Providers Name Role Phone ALISHA LADD M.D. Primary Care Physician Insurance Providers Guarantor iVnce Sanders Address [address] [place] [phone] Email NO EMAIL Payer Medicare Policy Number [id number] Subscriber's Name Vince Sanders Relationship Self / Same As Patient Group Number NA Group Name NA Effective Date 12 Advance Directives Directive Response Recorded Date/Time Patient/Family Given Education Material R/T Y - 09/05/18..AW 09/05/18 6:30pm Directives? Chief Complaint and Reason for Visit Chief Complaint Extremity Pain/Injury Reason for Visit [id number] Problems Medical Problem Onset Date Status Constipation Unknown Acute Dizziness Unknown Acute Hyperglycemia Unknown Acute [id number] Unknown Acute [id number] Unknown Acute Neck pain, musculoskeletal Unknown Acute Non compliance w medication regimen Unknown Acute Trapezius muscle spasm Unknown Acute Past Problems Medical Problem Onset Date Status Anxiety Unknown Acute Closed right hip fracture Unknown Acute Fall Unknown Acute Fall with injury Unknown Acute Hand contusion Unknown Acute Mid back pain on left side Unknown Acute Rib contusion Unknown Acute Traumatic ecchymosis of lower back Unknown Acute UTI (urinary tract infection) Unknown Acute Uncontrolled diabetes mellitus Unknown Acute Weakness Unknown Acute Medications Current Home Medications Medication Dose Units Route Directions Days Qty Instructions Start Date Aspirin (Aspirin *) 81 81 Mg ORAL Daily Mg Chw Fenofibrate * (Trilipix 135 Mg ORAL Once Daily 135 Mg *) 135 Mg Cap Glyburide-Metformin 1 Tab ORAL Twice Daily 5/500MG * (Glucovance Before Meals 5/500MG *) 1 Tab Tab Hydrochlorothiazide (Hydrochlorothiazide 12.5 Mg) 12.5 Mg Tab Levothyroxine Sodium (Synthroid *) 175 Mcg Tab Linagliptin * (Tradjenta 5 Mg *) 5 Mg Tab Losartan Potassium & Hydrochlo (Losartan Potassium/Hctz 50/12.5 Mg) 1 Tab Tab Paroxetine Hcl (Paroxetine Hcl 20 Mg) 20 Mg Tab Simvastatin 20 Mg ORAL Once Daily (Simvastatin *) 20 Mg Tab Past Home Medications Medication Directions Ordered Status Glyburide (Glyburide *) 5 Mg Tab, 5 Mg Oral Twice A Day Discontinued [place]-3 Fatty Acids (Fish Oil 1,000 Mg) 1,000 Mg Discontinued Cap, Social History Social History Problem Response Recorded Date/Time Onset Date Status Hx Alcohol Use No 08/29/2013 7:39am Not Applicable Not Applicable Hx Physical Abuse No 09/05/2018 6:19pm Not Applicable Not Applicable Smoking Status Start Date Stop Date Never smoker Hospital Discharge Instructions No hospital discharge instruction information available. Plan of Care Discharge Date 09/05/18 8:13pm Prescriptions See Medication Section Referrals ALISHA LADD M.D. Address: [address] [place] [address]. [address] [place] [address] Functional Status No functional status information available. Allergies, Adverse Reactions, Alerts Allergen Type Severity Reaction Status Last Updated No Known Allergies Allergy Unknown Active 10/01/14 Immunizations No immunization information available. Vital Signs Acute Vital Signs Vital Response Date/Time Blood Pressure 155/82 mm Hg 09/05/2018 8:46pm Pulse Pulse Rate (adult) 71 beats per minute (60 - 100) 09/05/2018 8:46pm Respiratory Rate 18 breaths per minute (10 - 24) 09/05/2018 8:46pm Temperature Source Oral 09/05/2018 8:46pm Height 5 ft 7 in 09/05/2018 6:19pm Weight 205 lb 09/05/2018 6:19pm Body Mass Index 32.1 kg/m^2 09/05/2018 6:19pm Results Laboratory Results Test Name Result Units Flags Reference Collection Result Comments Date/Time Date/Time White Blood Count 9.6 K/ul 4.0-11.5 09/05/2018 09/05/2018 6:28pm 6:37pm Red Blood Count 4.36 M/ul 3.80-5.20 09/05/2018 09/05/2018 6:28pm 6:37pm Hemoglobin 13.3 g/dl 10.5-15.7 09/05/2018 09/05/2018 6:28pm 6:37pm Hematocrit 40.3 % 34.0-50.0 09/05/2018 09/05/2018 6:28pm 6:37pm Mean Corpuscular 92.5 fl 78-98 09/05/2018 09/05/2018 Volume 6:28pm 6:37pm Mean Corpuscular 30.4 pg 26.2-33.4 09/05/2018 09/05/2018 Hemoglobin 6:28pm 6:37pm Mean Corpuscular 32.9 g/dl 31.5-36.2 09/05/2018 09/05/2018 Hemoglobin Concent 6:28pm 6:37pm Red Cell 13.6 % 11.5-15.5 09/05/2018 09/05/2018 Distribution Width 6:28pm 6:37pm Platelet Count 223 K/ul 137-338 09/05/2018 09/05/2018 6:28pm 6:37pm Mean Platelet 6.3 fl L 8.4-11.8 09/05/2018 09/05/2018 Volume 6:28pm 6:37pm Neutrophils (%) 67.5 % 44.4-80.1 09/05/2018 09/05/2018 (Auto) 6:28pm 6:37pm Lymphocytes (%) 24.6 % 10.0-50.0 09/05/2018 09/05/2018 (Auto) 6:28pm 6:37pm Monocytes (%) 5.8 % 3.6-12.04 09/05/2018 09/05/2018 (Auto) 6:28pm 6:37pm Eosinophils (%) 1.2 % 0.0-5.41 09/05/2018 09/05/2018 (Auto) 6:28pm 6:37pm Basophils (%) 0.9 % H 0.0-0.79 09/05/2018 09/05/2018 (Auto) 6:28pm 6:37pm Random Glucose 120 mg/dL H 82-115 09/05/2018 09/05/2018 6:28pm 6:47pm Blood Urea Nitrogen 12 mg/dL 8-23 09/05/2018 09/05/2018 6:28pm 6:47pm Serum Osmolality 282 280-300 09/05/2018 09/05/2018 6:28pm 6:47pm Creatinine 0.8 mg/dL 0.50-0.90 09/05/2018 09/05/2018 6:28pm 6:47pm Glomerular > 60.00 09/05/2018 09/05/2018 GFR RESULTS ARE REPORTED IN mL/min/1.73m2. Filtration Rate 6:28pm 6:47pm Calc Normal GFR: >60mL/min Moderately decreased GFR: 30-59 mL/min Severely decreased GFR: 15-29 mL/min Kidney Failure (or Dialysis): <15 mL/min The calculated eGFR is not valid for patients younger than 18 years or older than 75 years. BUN/Creatinine 15.0 07-2609/05/2018 09/05/2018 Ratio 6:28pm 6:47pm Sodium Level 141 mmol/L 135-145 09/05/2018 09/05/2018 6:28pm 6:47pm Potassium Level 4.1 mmol/L 3.5-5.2 09/05/2018 09/05/2018 6:28pm 6:47pm Chloride Level 99 mmol/L 98-108 09/05/2018 09/05/2018 6:28pm 6:47pm Carbon Dioxide 28 mmol/L 21-32 09/05/2018 09/05/2018 Level 6:28pm 6:47pm Anion Gap 18.1 mEq/L 12-09/05/2018 09/05/2018 6:28pm 6:47pm Calcium Level 10.3 mg/dL H 8.8-10.2 09/05/2018 09/05/2018 6:28pm 6:47pm Total Protein 7.2 g/dL 6.6-8.7 09/05/2018 09/05/2018 6:28pm 6:47pm Albumin 4.4 g/dL 3.5-5.2 09/05/2018 09/05/2018 6:28pm 6:47pm Globulin 2.8 gm/dL 09/05/2018 09/05/2018 6:28pm 6:47pm Albumin/Globulin 1.6 >1.0 09/05/2018 09/05/2018 Ratio 6:28pm 6:47pm Total Bilirubin 0.3 mg/dL 0.0-1.2 09/05/2018 09/05/2018 6:28pm 6:47pm Aspartate Amino 14 U/L L 15-32 09/05/2018 09/05/2018 Transf (AST/SGOT) 6:28pm 6:47pm Alanine < 2 U/L 0-33 09/05/2018 09/05/2018 Aminotransferase 6:28pm 6:47pm (ALT/SGPT) Total Alkaline 69 U/L 35-105 09/05/2018 09/05/2018 Phosphatase 6:28pm 6:47pm Procedures Procedure Status Date Provider(s) XR hip, oblique view Completed 09/05/18 RICK HALL ACNP Encounters Encounter Location Arrival/Admit Date Discharge/Depart Date Attending Provider Departed Iesha 09/05/18 6:18pm 09/05/18 8:13pm KIKI GANDARA [facility] Recent Diagnosis
[2018-09-11 17:38] VITALS: BMI 33.7
[2018-09-11] MEDS ORDERED: HYDROCODONE/APAP 5/325 MG TAB PO PRN (17:43)
[2018-09-11] MEDS ORDERED: D50W 25 GM/50 ML SYRINGE IV PRN (17:45)
[2018-09-11] MEDS ORDERED: GLUCAGON 1 MG/VIAL IM PRN (17:45)
[2018-09-11] MEDS ORDERED: LORATADINE 10 MG TAB PO PRN (18:09)
[2018-09-11] MEDS ORDERED: MAGNESIUM HYDROXIDE 8% 30 ML PO PRN (19:12)
[2018-09-11] MEDS ORDERED: LACTULOSE 20 GM/30 ML UCUP PO PRN (19:12)
[2018-09-11 19:59] LABS: Urine Appearance CLOUDY; Urine Bilirubin NEGATIVE (NEG); Urine Blood NEGATIVE (NEG); Urine Color YELLOW; Urine Glucose 1+ (NEG); Urine Protein TRACE (NEG); Urine Specific Gravity 1.015 (1.005-1.030); Urine pH 8.5 (5.0-7.0)
[2018-09-11] MEDS ORDERED: METOPROLOL TAR 25 MG TAB PO SCH (20:00)
[2018-09-11 20:08] LABS: Urine Bacteria >50 /HPF (<20); Urine Culture Reflex Order NOT NEEDED; Urine RBC NONE SEEN /HPF (NONE SEEN)
[2018-09-11] MEDS: DOCUSATE NA/SENNA CONC 1 TAB PO PRN (20:18)
[2018-09-11] MEDS: DOCOSAHEXANOIC AC/EPA 1000 MG PO SCH (20:18)
[2018-09-11] MEDS: GABAPENTIN 300 MG CAP PO SCH (20:18)
[2018-09-11] MEDS: VENLAFAXINE HCL XR 75 MG CAP PO SCH (20:19)
[2018-09-11] MEDS: PRIMIDONE 50 MG TAB PO SCH (20:21)
[2018-09-11] MEDS: ATORVASTATIN 10 MG TAB PO SCH (20:21)
[2018-09-11] MEDS: INSULIN -REGULAR HUMAN 50 UNIT/0.5 ML ML SQ SCH (20:21)
--- NOTE | 2018-09-12 00:16 | FAST ---
SHIFT START DATE/TIME: 09/11/2018 19:00 (YOUTH OFFICER) SHIFT END DATE/TIME: 09/12/2018 07:00 (YOUTH OFFICER) NAME VINCE SANDERS DATE OF : 1945 DATE OF ADMISSION: 09/11/2018 17:29 (YOUTH OFFICER) PHONE: AGE: 73 SSN# [id number] GENDER: Female ENCOUNTER PHYSICIAN: Dr. Delmer Gonzalez M.D. ADMISSION DIAGNOSIS: - Orthopaedic Disorders 08 - Unilateral Hip Fracture (08.11) Closed Displaced Midcervical Frcature of Right Femur. EATING: Activity did not occur on this shift EATING - SCORE: 0-UNK GROOMING: Activity did not occur on this shift GROOMING - SCORE: 0-UNK BATHING: Activity did not occur on this shift BATHING - SCORE: 0-UNK DRESSING - UPPER BODY: Patient is not dressing in public clothing ARTICLES SCORE Total number of steps: 0 DRESSING - UPPER BODY - SCORE: 0-UNK DRESSING - LOWER BODY: Patient is not dressing in public clothing ARTICLES SCORE Total number of steps: 0 DRESSING - LOWER BODY - SCORE: 0-UNK TOILETING: TOILETING - STEP 1: Does the patient require the assistance of a person or device, or need extra time with toileting? Yes . TOILETING - STEP 2: Does the patient require the assistance of a helper? Yes. TOILETING - STEP 3: How much assistance does the patient require from the helper? Hands-on assistance from the helper TOILETING - STEP 4: Of the 3 tasks: 1) Adjusting clothing prior to use, 2) Cleansing of perineal area, 3) Adjusting clot juana after use; How many tasks does the patient perform WITHOUT assistance of the helper? Three tasks with steadying assistance from the helper TOILETING - SCORE: 4-MIN BLADDER MANAGEMENT: BLADDER MANAGEMENT - STEP 1: Does the patient control the bladder completely and intentionally without equipment or devices or med ications, and is always continent? No. BLADDER MANAGEMENT - STEP 2: Does the patient require the assistance of a helper? Yes. BLADDER MANAGEMENT - STEP 3: How much assistance does the patient require from the helper? Patient requires contact assistance fro m the helper BLADDER MANAGEMENT - STEP 4: How much contact assistance does the patient require from the helper? Patient requires minimal assist ance to maintain an external device - by positioning, and the patient performs 75% or more of bladder management tasks, while the helper provides less than 25% of the assistance to position patient on / off bedpan BLADDER MANAGEMENT - SCORE: 4-MIN BOWEL MANAGEMENT: Activity did not occur on this shift BOWEL MANAGEMENT - SCORE: 7-IND TRANSFERS: BED, CHAIR, WHEELCHAIR: TRANSFERS: BED, CHAIR, WHEELCHAIR - STEP 1: Does the patient require assistance of a person or device, or need extra time with bed, chair, or whe elchair transfers? Yes. TRANSFERS: BED, CHAIR, WHEELCHAIR - STEP 2: Does the patient require the assistance of a helper? Yes. TRANSFERS: BED, CHAIR, WHEELCHAIR - STEP 3: How much assistance does the patient require from the helper? Lifting of the legs TRANSFERS: BED, CHAIR, WHEELCHAIR - STEP 4: How many legs does the patient require the helper to lift? both legs TRANSFERS: BED, CHAIR, WHEELCHAIR - SCORE: 3-MOD TRANSFERS: TOILET: TRANSFERS: TOILET - STEP 1: Does the patient require the assistance of a person or device, or need extra time with toilet transfe rs? Yes. TRANSFERS: TOILET - STEP 2: Does the patient require the assistance of a helper? Yes. TRANSFERS: TOILET - STEP 3: How much assistance does the patient require from the helper? Patient performs half or more of the tr ansferring tasks TRANSFERS: TOILET - STEP 4: Does the patient need only incidental help such as contact guard or steadying during toilet transfer? Yes. TRANSFERS: TOILET - SCORE: 4-MIN TRANSFERS: SHOWER: Activity did not occur on this shift TRANSFERS: SHOWER - SCORE: 0-UNK TRANSFERS: TUB: Activity did not occur on this shift TRANSFERS: TUB - SCORE: 0-UNK LOCOMOTION: WALK: Activity did not occur on this shift LOCOMOTION: WALK - SCORE: 0-UNK LOCOMOTION: WHEELCHAIR: Activity did not occur on this shift LOCOMOTION: WHEELCHAIR - SCORE: 0-UNK COMPREHENSION: COMPREHENSION: TYPE: Both COMPREHENSION - STEP 1: Does the patient require help from a person or device, or need extra time to understand complex and a bstract ideas (such as current events, finances, discharge planning, medical issues, relationships, e tc)? Yes. COMPREHENSION - STEP 2: Does the patient require help to understand questions or statements about basic needs or ideas (such as hunger, thirst, sleep, safety, daily schedule, room location, or discomfort) half or more of the t nan? No. COMPREHENSION - STEP 3: How often does the patient need help to understand directions and conversation about basic needs? 10% - 24% of the time COMPREHENSION - SCORE: 4-MIN EXPRESSION EXPRESSION: TYPE: Both EXPRESSION - STEP 1: Does the patient require help from a person or device, or need extra time expressing complex and abst ract ideas (such as current events, finances, discharge planning, medical issues, relationships, etc) ? Yes. EXPRESSION - STEP 2: Does the patient require help to express basic necessities or ideas (such as hunger, thirst, sleep, s afety, daily schedule, room location, or discomfort) half or more of the time? No. EXPRESSION - STEP 3: How often does the patient need help to express directions and conversation about basic needs? 10-24% of the time EXPRESSION - SCORE: 4-MIN SOCIAL INTERACTION: SOCIAL INTERACTION - STEP 1: Does the patient require a helper to interact with others in social and therapeutic situations? No. SOCIAL INTERACTION - STEP 2: Does the patient need extra time in social situations, OR does s/he interact with staff, other patien ts, and family members ONLY in structured environments, OR does s/he require medication for social in teraction? Yes, patient requires medication for social interaction SOCIAL INTERACTION - SCORE: 6-RASHAWN PROBLEM SOLVING: PROBLEM SOLVING - STEP 1: Does the patient need help from a person or device, or need extra time to solve complex problems such as managing a checking account or confronting interpersonal problems? No. PROBLEM SOLVING - STEP 2: Does the patient require extra time to make decisions or solve problems, OR does s/he have slight dif ficulty reading, initiating, or self-correcting in unfamiliar situations? Yes, patient needs extra ti me. PROBLEM SOLVING - SCORE: 6-RASHAWN MEMORY: MEMORY - STEP 1: Does the patient need help from a person or device, or need extra time to remember frequently encount ered people, daily routines, and executing requests? No. MEMORY - STEP 2: Does the patient have slight difficulty recognizing frequently encountered people, daily routines, or executing requests without the need for repetition or using self-initiated or environmental cues to remember? No. MEMORY - SCORE: 7-IND SIGNATURE PANEL: The following modified sections: Eating - Score, Grooming - Score, Bathing - Score, Dressing - Upper Body - Score, Dressing - Lower Body - Score, Toileting - Score, Bladder Management - Score, Bowel Man agement - Score, Transfers: Bed, Chair, Wheelchair - Score, Transfers: Shower - Score, Transfers: Tub - Score, Locomotion: Walk - Score, Locomotion: Wheelchair - Score, Comprehension - Score, Expression - Score, Social Interaction - Score, Problem Solving - Score, Memory - Score, Transfers: Toilet - Sc ore were [electronically] signed by Diana Ernst CNA on MonSep 12 2018 00:15:11 [id number] ([facility])
[2018-09-12] MEDS: LEVOTHYROXINE SOD 0.1 MG TAB PO SCH (06:53)
[2018-09-12] MEDS: INSULIN -REGULAR HUMAN 50 UNIT/0.5 ML ML SQ SCH ×4 (06:56→20:35)
[2018-09-12 06:57] LABS: Absolute Lymphocytes (CBC) 1.9 K/uL (0.7-4.9); Absolute Monocytes 0.8 K/uL (0.1-1.3); Absolute Neutrophil 8.2 K/uL (1.8-8.0); Basophils % 0.5 % (0-1.3); Eosinophils % 2.3 % (0-4.4); Hematocrit 30.4 % (36.0-45.0); MPV 8.1 fL (7.6-11.3); Monocytes % 6.8 % (3.3-12.3); RBC Red Blood Cell Count 3.43 M/uL (3.86-4.86)
[2018-09-12 07:24] LABS: Albumin 2.7 g/dL (3.4-5.0); Digoxin Level 0.6 ng/mL (0.80-2.00); Potassium 3.6 mmol/L (3.5-5.1); Prealbumin 9.3 mg/dL (20-40)
[2018-09-12] MEDS ORDERED: METFORMIN HCL 500 MG TAB PO SCH (08:00)
[2018-09-12] MEDS ORDERED: INFLUENZA VACCINE (for 3y+) 0.5 ML DOSE IMVAC ONE (08:00)
[2018-09-12] MEDS: PIOGLITAZONE 15 MG TAB PO SCH (08:27)
[2018-09-12] MEDS: SPIRONOLACTONE 25 MG TABLET PO SCH (08:28)
[2018-09-12] MEDS: GALANTAMINE 4 MG TAB PO SCH (08:28)
[2018-09-12] MEDS: METOPROLOL TAR 25 MG TAB PO SCH ×2 (08:28→20:35)
[2018-09-12] MEDS: VENLAFAXINE HCL XR 75 MG CAP PO SCH ×2 (08:28→20:34)
[2018-09-12] MEDS: CLOPIDOGREL 75 MG TABLET PO SCH (08:29)
[2018-09-12] MEDS: ASPIRIN EC 81 MG TAB PO SCH (08:29)
[2018-09-12] MEDS: MULTIVITAMIN TAB PO SCH (08:29)
[2018-09-12] MEDS: DOCOSAHEXANOIC AC/EPA 1000 MG PO SCH ×2 (08:29→20:34)
[2018-09-12] MEDS: BUPROPION HCL XL 150 MG TAB PO SCH (08:30)
[2018-09-12] MEDS: DIGOXIN 0.125 MG TABLET PO SCH (08:30)
[2018-09-12] MEDS: NPH (HUMAN) 100 UNITS/ML INSULIN SQ SCH ×2 (08:41→17:42)
[2018-09-12] MEDS: METFORMIN HCL 500 MG TAB PO SCH ×2 (08:50→16:48)
[2018-09-12] MEDS: HYDROCODONE/APAP 5/325 MG TAB PO PRN ×3 (08:51→21:18)
[2018-09-12] MEDS: ENOXAPARIN 30 MG/0.3 ML SQ SCH (10:31)
[2018-09-12] MEDS: BUMETANIDE 1 MG TABLET PO SCH (10:31)
--- NOTE | 2018-09-12 14:09 | R.HP ---
FACILITY: [facility] ENCOUNTER DATE AND TIME: 09/12/2018 14:03 (SUPPORT DBA) MR#: [id number] NAME VINCE SANDERS ADDRESS: [place] [id number] CITY: [place] [address]IP [address] PHONE: DATE OF : 1945 AGE: 73 SSN# [id number] GENDER: Female DEXTERITY Right-handed MARITAL STATUS RACE White PRE-HOSPITAL LIVING SETTING 01 - Home (private home/apt. board/care, assisted living, fci, transitional living) PRE-HOSPITAL LIVING WITH Family/Relatives ENCOUNTER PHYSICIAN: Dr. Delmer Gonzalez M.D. 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 is a 73 yo Right-handed white female. On 09/05/2018 she was admitted to [facility] with diagnosis Closed Displaced Midcerv ical Frcature of Right Femur. Her impairment category is Orthopaedic Disorders 08 - Unilateral Hip Fracture (08.11). Pre-morbidly, Pt. was independent/mod-I in Self-Care, Locomotion, Sphincter Control, Transfers Contro l, Communication, and Social Cognition; and she had good Sphincter Control. Currently, she has deficits of Balance, Locomotion, Endurance, Safety Awareness, Transfers Control, a nd Self-Care. Pt. is now referred to [facility] for acute in-patient rehabilitation in order to maximize patient's functional independence in activities of daily living, strength, ROM, and mobi lity. Patient has realistic goal of being discharged at assistance level 6-Josias to reside at Home with Fam alma delia/Relatives. Vince Sanders is a 73 year old female that lives in a 2nd Floor Apartment with 13 steps up with no elevator with her granddaughter. Patient is ambulatory with the use of cane. On 09/07/2018, she sustained a fall after her shoes got stuck on the carpet and was admitted to [facility] and treated. She is now medically stable but in need of 24-hour nursing, doctor supervision and oversite while receiving active and ongoing is reasonably expected to participate in 3hours of therapy a day/15 hours per week and receive care with an intensive interdisciplinary approach. 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 SOCIAL HISTORY: - Home Living Family/Relatives REVIEW OF SYSTEMS: - Gen No Chills Fatigue No Fever - Eyes No Double Vision No itchiness - ENMT No Difficulty Swallowing - CVS No Chest Discomfort No Chest Pain Fatigue No Weight Gain - Resp No Cough No Shortness of Breath - GI Continent No Abdominal Pain No Constipation No Diarrhea - Continent No Kidney Pain No Painful Urination No Urinary Urgency - MSK No Joint Pain No Muscle Cramps Stiffness - Skin No Itching No Rash No Suspicious Lesions - Neuro Coordination Difficulty No Difficulty with Concentration No Memory Loss No Seizures Weakness - Psych No Anxiety No Depression No HIV Exposure No Persistent Infections No Seasonal Allergies - Endo No Cold/Heat Intolerance No Excessive Hunger No Excessive Thirst No Excessive Urination PHYSICAL EXAM - Gen Alert and awake Lying in bed No apparent distress Oriented to: person, time, and place - Skin No beakdown No abnormalities - Eyes No abnormalities - ENMT No abnormalities - Neck No abnormalities - CVS RRR - Chest Clear - Abd + bowel sounds - GI Soft Deferred - No abnormalities - Ext Right hip surgical site has good hemostasis. - MSK 4+/5 weakness in right lower extremity. - Neuro 4/5 strength right lower extremity - Psych No abnormalities VITAL SIGNS Temperature: 98 F SBP/DBP: 137/63 Pulse: 79 Resp: 16 NURSING: - Shower allowing shower - Lab Results blood Sugar Check ACHS - Skin care per protocol PRECAUTIONS: - Posterior Hip Precaution No adduction across midline No external rotation No hip flexion >90 degrees No internal rotation No wheel chair propulsion - Weight Bearing Precaution WBAT right LE ACTIVITIES OOB only with supervision FUNCTIONAL STATUS: - Self-Care A. Eating Ind Ind B. Grooming Ind Ind C. Bathing Ind sup D. Dressing - Upper Ind sup E. Dressing - Lower Ind modA F. Toileting Ind maxA - Sphincter Control G: Bladder control Ind Ind H: Bowel control Ind Ind - Transfers Control I. Bed/Chair/Wheelchair Ind min-to-modA J. Toilet Ind modA K. Tub/Shower Ind ADNO - Locomotion L. Walk/Wheelchair (C) Ind modA L. Walk/Wheelchair (W) Ind modA M. Stairs Ind ADNO - Communication N. Comprehension (B) Ind Josias O. Expression (B) Ind Josias - Social Cognition P. Social Interaction Ind Josias Q. Problem Solving Ind Josias R. Memory Ind Josias - Endurance Fair - Balance Fair - Safety Awareness Fair CURRENT FUNC. DEFICITS: Balance, Locomotion, Endurance, Safety Awareness, Transfers Control, and Self-Care ASSESSMENT: Pt. is a 73 yo Right-handed white female.On 09/05/2018 she was [facility] with diagnosis Closed Displaced Midcervical Frcature of Right Femur.Her impairment category is Orth opaedic Disorders 08 - Unilateral Hip Fracture (08.11).Pre-morbidly, Pt. was independent/mod-I in Se lf-Care, Locomotion, Sphincter Control, Transfers Control, Communication, and Social Cognition; and s he had good Sphincter Control.Currently, she has deficits of Balance, Locomotion, Endurance, Safety A wareness, Transfers Control, and Self-Care.Pt. is now referred to [facility] f or acute in-patient rehabilitation in order to maximize patient's functional independence in activiti es of daily living, strength, ROM, and mobility.- Rehab Goal Patient has realistic goal of being discharged at assistance level 6-Josias to reside at Home with Fam alma delia/Relatives. Vince Sanders is a 73 year old female that lives in a 2nd Floor Apartment with 13 steps up with no elevator with her granddaughter. Patient is ambulatory with the use of cane. On 09/07/2018, she sustained a fall after her shoes got stuck on the carpet and was admitted to [facility] and treated. She is now medically stable but in need of 24-hour nursing, doctor supervision and oversite while receiving active and ongoing is reasonably expected to participate in 3hours of therapy a day/15 hours per week and receive care with an intensive interdisciplinary approach.REHAB PLAN: - Physical Therapy Decreased range of motion - to improve, our physical therapists will perform initial evaluation of pt 's status upon admission and devise an individualized program for increasing patient's Range of Motio n. Gait dysfunction - to improve, our physical therapists will perform initial evaluation of pt's status upon admission and devise an individualized program for Gait Training, and Wheel Chair mobility Inability to transfer - to improve, our physical therapists will perform initial evaluation of pt's s tatus upon admission and devise an individualized program for Bed mobility Need for home safety evaluation - to improve, our physical therapists will perform initial evaluation of pt's status upon admission and devise an individualized program for Home Evaluation Need in caregiver upon discharge - to improve, our physical therapists will perform initial evaluatio n of pt's status upon admission and devise an individualized program for Caregiver Training New precaution - to improve, our physical therapists will perform initial evaluation of pt's status u donna admission and devise an individualized program for Patient precaution education Poor balance - to improve, our physical therapists will perform initial evaluation of pt's status upo n admission and devise an individualized program for Balance Training Poor endurance - to improve, our physical therapists will perform initial evaluation of pt's status u donna admission and devise an individualized program for Endurance Training Weakness - to improve, our physical therapists will perform initial evaluation of pt's status upon ad mission and devise an individualized program for Aquatic Therapy, Neuromuscular Reeducation, and Stre ngthening Achieving independence - to improve, our physical therapists will perform initial evaluation of pt's status upon admission and devise an individualized program for Community Reintegration Activities - Occupational Therapy ADL deficits - to improve, our occupation therapists will perform initial evaluation of pt's status u donna admission and devise an individualized program for Bathing, Bed mobility, Community Reintegration , Cooking, Dressing, Eating, Fine Motor Skills, Grooming, Homemaking, Kitchen Mobility, Laundry, Namita ent Education, Safety Awareness, Splinting - Positioning, Transfers(Toilet, Tub, Shower), and Wheel C hair Management Need for tire care manager - to improve, our occupation therapists will perform initial evaluation of pt's s tatus upon admission and devise an individualized program for Caregiver Training Weakness - to improve, our occupation therapists will perform initial evaluation of pt's status upon admission and devise an individualized program for Aquatic Therapy, Balance, Endurance, UE ROM, and U E strengthening MEDICAL PLAN: - Anterior Hip Precaution No abduction No active extension No adduction across midline No external rotation No hip flexion >90 degrees No internal rotation - Diet - Liquid Texture Start Regular - Tube Feed Start N/A - Diet Type Start Regular - Posterior Hip Precaution No adduction across midline No external rotation No hip flexion >90 degrees No internal rotation No wheel chair propulsion - Lab Results blood Sugar Check ACHS - Weight Bearing Precaution WBAT right LE - Skin care per protocol - Diet - Solid Texture Regular - Shower shower DISCHARGE PLAN: - Estimated Length of Stay (days) 14. - Consensus on plan Discharge plan has been discussed with primary caregiver. Patient/Family is in agreement with the see n. Primary caregiver is in agreement with the plan. - Patient/Family Goals Return home with assistance. - Planned Living Setting Upon Discharge Home, to live with Family/Relatives. SIGNATURE PANEL: (SUPPORT DBA)
--- NOTE | 2018-09-12 14:11 | PAPE ---
PATIENT: [facility] MR# [id number] REFERRING DOCTOR myrna Downey EVALUATION DATE AND TIME 09/12/2018 14:09 (VICE PRESIDENT OF ENGINEERING) NAME VINCE SANDERS DATE OF 1945 AGE 73 PHONE SSN# [id number] GENDER female EVALUATING PHYSICIAN Dr. Delmer Gonzalez M.D. 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 PATIENT NEEDS CLOSE MEDICAL SUPERVISION BY A REHABILITATION PHYSICIAN FOR: Bowel and Bladder Management Coordination of Treatment Team Diabetes Management Medical and Co-Morbidity Management Wound Care DVT Management Pain Management PATIENT REQUIRES 24X7 REHAB NURSING FOR MEDICAL AND FUNCTIONAL MGT. OF THE FOLLOWING DEFICITS: ADL's Ambulation Bowel and Bladder Management Cognition Communication Disease Management Medication Management Patient/Family Education Providing Safe Environment Skin Integrity Transfers Pain Management PATIENT REQUIRES INTENSIVE, COORDINATED INTERDISCIPLINARY APPROACH TO REHAB: Arranging Home Equipment/Services Discharge Planning Family Intervention/Training Leasing Property Manager/Case Management LIST OF IDENTIFIED AND POTENTIAL PROBLEMS: Alteration in leisure activities Bladder, Incontinence Blood Pressure, Hypertension/hypotension Issues Bowel, Incontinence Diabetes, Hyperglycemia/hypoglycemia Issues Fluid volume overload related to Congestive Heart Failure (CHF) Infection, Actual or Potential Mobility Impaired Pain, Alteration in Comfort Self Care Deficit Skin Integrity, Actual or Potential Urinary Tract Infection (UTI), Actual or Potential RISK FOR COMPLICATIONS - Hypertension CVA. Hypotension. RI. TIA. - CAD CHF. Cardiac Arrest. RI. Pain. INTERVENTIONS - Hypertension - CAD 02 sats. Activity management. Medications. VS. PATIENT COULD BE AT RISK FOR COMPLICATIONS FROM ADVERSE MEDICAL CONDITIONS DUE TO HIS/HER COMORBIDITI ES AND THE RIGORS OF THE INTENSIVE REHABILLITATION PROGRAM. METHODS OR INTERVENTIONS TO AVOID COMPLIC ATIONS INCLUDE: - Deep Vein Thrombosis (DVT) Prophylaxis therapy for prevention . Sequential Compression Device (SCD). TE D Hose. - Bleeding Assess lab values and manage abnormalities. Nursing to teach precautions for anti-coagulation therapy . Wound to be assessed every shift. - Infection Clinical staff to assess and manage the signs and symptoms of infection including fever, redness, war mth, etc. - Urinary Tract Infection - Falls Patient will be evaluated for Fall Precautions and will be placed on Fall Precautions as indicated pe r protocol. - Skin Breakdown Nursing will assess skin daily using assessment tool and will place on Skin Breakdown Precautions as indicated per protocol. - Pain Clinical staff may employ non-medication methods such as massage, distraction, decrease stimulus, etc . as needed. Clinical staff will assess patient's pain level every shift per protocol to assess and e nsure pain management effectiveness. Medications will be given and the pain level re-assessed. PRELIMINARY PLAN OF CARE: - Physical Therapy Patient needs Physical Therapy for a daily minimum of 1.5 hours at least 5 out of 7 days, to improve: Mobility, Strengthening, Transfers, Stretching, ROM, Endurance, Ability to manage stairs, Gait, and Balance. - Rehabilitation Nursing Patient requires 24x7 Rehabilitation Nursing for: Pain Issues, Identifying and preventing risk factor s, Monitoring and reporting current medical conditions, Assisting with ambulation and transfer, Marshal ting with all ADL-s, Teaching patients about disease process and medications, Family teaching, Provid ing safe environment, Bowel and Bladder Issues, Skin Integrity, and Medication Management. Patient needs Leasing Property Manager and/or Case Management for: Discharge Planning, Arranging Home Equipmen t or Services, and Family Interventions. - Dietary and Nutrition Services Patient needs Dietary and Nutrition Services for: Adequate Nutrition, Nutritional Supplements, and Nu tritional Education. - Occupational Therapy Patient needs Occupational Therapy for a daily minimum of 1.5 hours at least 5 out of 7 days, to impr ove Activities of Daily Living, including: Eating, Grooming, Bathing, Dressing, Toileting, Toilet Tra nsfers, Community Reintegration, Higher functional activities, Adaptive Equipment, Splinting, Househo ld Tasks, and Other activities as determined. POTENTIAL FUNCTIONAL GOALS FOR PATIENT TO ACHIEVE BY DISCHARGE: - Safety Precaution Patient will remain free from falls or injury at time of discharge. - Bed Mobility Patient will perform bed mobility at 4-Isabel level of assistance. - Transfers Patient will complete transfers from bed to chair at 4-Isabel level of assistance. - Mobility Patient will ambulate 150 ft with 4-Isabel level of assistance with RW. PATIENT REHAB POTENTIAL Expected level of measurable improvement will be of a practical value to patient's functional capacit y or adaptations to impairments Has a viable Discharge Plan Medically appropriate; condition is sufficiently stable to participate in intensive rehab program Patient is able and expected to receive 3 hours of individualized therapy daily on at least 5 of ever y 7 days Patient's prognosis for significant practical improvement within a reasonable period of time appears Good DISCHARGE PLAN: - Estimated Length of Stay (days) 14. - Consensus on plan Discharge plan has been discussed with primary caregiver. Patient/Family is in agreement with the see n. Primary caregiver is in agreement with the plan. - Patient/Family Goals Return home with assistance. - Planned Living Setting Upon Discharge Home, to live with Family/Relatives. CONCLUSION ON REHABILITATION NECESSITY: I have evaluated patient's pre-admission functional status and, comparing it to the patient's post-ad mission functional status now, I conclude that the pre-admission assessment was accurate. Patient's c ondition on admission supports the medical necessity of admission to [facility]. It is safe to proceed with patient's therapy program. SIGNATURE PANEL: (VICE PRESIDENT OF ENGINEERING)
--- NOTE | 2018-09-12 15:04 | FAST ---
SHIFT START DATE/TIME: 09/12/2018 07:00 (PLATING AND POINT ASSEMBLY SUPERVISOR) SHIFT END DATE/TIME: 09/12/2018 19:00 (PLATING AND POINT ASSEMBLY SUPERVISOR) NAME VINCE SANDERS DATE OF : 1945 DATE OF ADMISSION: 09/11/2018 17:29 (PLATING AND POINT ASSEMBLY SUPERVISOR) PHONE: AGE: 73 N# [id number] GENDER: Female ENCOUNTER PHYSICIAN: Dr. Delmer Gonzalez M.D. ADMISSION DIAGNOSIS: - Orthopaedic Disorders 08 - Unilateral Hip Fracture (08.11) Closed Displaced Midcervical Frcature of Right Femur. EATING: EATING - STEP 1: Does the patient require the assistance of a person or device, or need extra time when eating? Yes. EATING - STEP 2: Does the patient require the assistance of a helper? Yes. EATING - STEP 3: Does the patient perform half or more of the eating tasks? Yes. EATING - STEP 4: Does the patient need only supervision, cuing, coaxing OR help to apply an orthosis OR help to cut fo od, open containers, pour liquids, or butter bread? Yes. EATING - SCORE: 5-SUP GROOMING: Comb/brush hair Oral care Wash, rinse, and dry face Wash, rinse, and dry hands GROOMING - STEP 1: Does the patient require the assistance of a person or device, or need extra time when grooming? Yes. GROOMING - STEP 2: Does the patient require the assistance of a helper? Yes. GROOMING - STEP 3: How much assistance does the patient require from the helper? Only prior equipment preparation/set up from the helper GROOMING - SCORE: 5-SUP BATHING: Activity did not occur on this shift BATHING - SCORE: 0-UNK DRESSING - UPPER BODY: Activity did not occur on this shift ARTICLES SCORE Total number of steps: 0 DRESSING - UPPER BODY - SCORE: 0-UNK DRESSING - LOWER BODY: Activity did not occur on this shift ARTICLES SCORE Total number of steps: 0 DRESSING - LOWER BODY - SCORE: 0-UNK TOILETING: TOILETING - STEP 1: Does the patient require the assistance of a person or device, or need extra time with toileting? Yes . TOILETING - STEP 2: Does the patient require the assistance of a helper? Yes. TOILETING - STEP 3: How much assistance does the patient require from the helper? Hands-on assistance from the helper TOILETING - STEP 4: Of the 3 tasks: 1) Adjusting clothing prior to use, 2) Cleansing of perineal area, 3) Adjusting clot juana after use; How many tasks does the patient perform WITHOUT assistance of the helper? Two tasks TOILETING - SCORE: 3-MOD BLADDER MANAGEMENT: BLADDER MANAGEMENT - STEP 1: Does the patient control the bladder completely and intentionally without equipment or devices or med ications, and is always continent? No. BLADDER MANAGEMENT - STEP 2: Does the patient require the assistance of a helper? No, patient only requires medication for control , such as Ditropan, uripas, urecholine, detrol, etc. BLADDER MANAGEMENT - SCORE: 6-RASHAWN BLADDER MANAGEMENT - FREQUENCY OF ACCIDENTS: BLADDER MANAGEMENT(FA) - STEP 1: How many accidents has the patient had during the current shift? 0 BOWEL MANAGEMENT: Activity did not occur on this shift BOWEL MANAGEMENT - SCORE: 7-IND BOWEL MANAGEMENT - FREQUENCY OF ACCIDENTS: BOWEL MANAGEMENT(FA) - STEP 1: How many accidents has the patient had during the current shift? 0 TRANSFERS: BED, CHAIR, WHEELCHAIR: TRANSFERS: BED, CHAIR, WHEELCHAIR - STEP 1: Does the patient require assistance of a person or device, or need extra time with bed, chair, or whe elchair transfers? Yes. TRANSFERS: BED, CHAIR, WHEELCHAIR - STEP 2: Does the patient require the assistance of a helper? Yes. TRANSFERS: BED, CHAIR, WHEELCHAIR - STEP 3: How much assistance does the patient require from the helper? Lifting of the legs TRANSFERS: BED, CHAIR, WHEELCHAIR - STEP 4: How many legs does the patient require the helper to lift? both legs TRANSFERS: BED, CHAIR, WHEELCHAIR - SCORE: 3-MOD TRANSFERS: TOILET: TRANSFERS: TOILET - STEP 1: Does the patient require the assistance of a person or device, or need extra time with toilet transfe rs? Yes. TRANSFERS: TOILET - STEP 2: Does the patient require the assistance of a helper? Yes. TRANSFERS: TOILET - STEP 3: How much assistance does the patient require from the helper? Patient performs half or more of the tr ansferring tasks TRANSFERS: TOILET - STEP 4: Does the patient need only incidental help such as contact guard or steadying during toilet transfer? Yes. TRANSFERS: TOILET - SCORE: 4-MIN TRANSFERS: SHOWER: Activity did not occur on this shift TRANSFERS: SHOWER - SCORE: 0-UNK TRANSFERS: TUB: Activity did not occur on this shift TRANSFERS: TUB - SCORE: 0-UNK LOCOMOTION: WALK: Activity did not occur on this shift LOCOMOTION: WALK - SCORE: 0-UNK LOCOMOTION: WHEELCHAIR: LOCOMOTION: WHEELCHAIR - STEP 1: Does the patient need help to go 150 feet in a wheelchair? Yes. LOCOMOTION: WHEELCHAIR - STEP 2: How much assistance does the patient need from the helper? Only supervision, cuing, or coaxing LOCOMOTION: WHEELCHAIR - SCORE: 5-SUP COMPREHENSION: COMPREHENSION: TYPE: Both COMPREHENSION - STEP 1: Does the patient require help from a person or device, or need extra time to understand complex and a bstract ideas (such as current events, finances, discharge planning, medical issues, relationships, e tc)? Yes. COMPREHENSION - STEP 2: Does the patient require help to understand questions or statements about basic needs or ideas (such as hunger, thirst, sleep, safety, daily schedule, room location, or discomfort) half or more of the t nan? No. COMPREHENSION - STEP 3: How often does the patient need help to understand directions and conversation about basic needs? Les s than 10% of the time COMPREHENSION - SCORE: 5-SUP EXPRESSION EXPRESSION: TYPE: Both EXPRESSION - STEP 1: Does the patient require help from a person or device, or need extra time expressing complex and abst ract ideas (such as current events, finances, discharge planning, medical issues, relationships, etc) ? No. EXPRESSION - STEP 2: Does the patient need extra time, require an assistive device (such as augmentive communication syste m or a communication board), OR does s/he have mild difficulty expressing complex and abstract ideas (including mild dysarthria or mild word-find problems)? Yes. EXPRESSION - SCORE: 6-RASHAWN SOCIAL INTERACTION: SOCIAL INTERACTION - STEP 1: Does the patient require a helper to interact with others in social and therapeutic situations? No. SOCIAL INTERACTION - STEP 2: Does the patient need extra time in social situations, OR does s/he interact with staff, other patien ts, and family members ONLY in structured environments, OR does s/he require medication for social in teraction? Yes, patient needs extra time SOCIAL INTERACTION - SCORE: 6-RASHAWN PROBLEM SOLVING: PROBLEM SOLVING - STEP 1: Does the patient need help from a person or device, or need extra time to solve complex problems such as managing a checking account or confronting interpersonal problems? Yes. PROBLEM SOLVING - STEP 2: Does the patient solve basic routine problems half or more of the time? Yes. PROBLEM SOLVING - STEP 3: How often does the patient need help to solve basic routine problems? Less than 10% of the time PROBLEM SOLVING - SCORE: 5-SUP MEMORY: MEMORY - STEP 1: Does the patient need help from a person or device, or need extra time to remember frequently encount ered people, daily routines, and executing requests? No. MEMORY - STEP 2: Does the patient have slight difficulty recognizing frequently encountered people, daily routines, or executing requests without the need for repetition or using self-initiated or environmental cues to remember? Yes. MEMORY - SCORE: 6-RASHAWN SIGNATURE PANEL: The following modified sections: Eating - Score, Grooming - Score, Bathing - Score, Dressing - Upper Body - Score, Dressing - Lower Body - Score, Toileting - Score, Bladder Management - Score, Bowel Man agement - Score, Transfers: Bed, Chair, Wheelchair - Score, Transfers: Toilet - Score, Transfers: Donna wer - Score, Transfers: Tub - Score, Locomotion: Walk - Score, Locomotion: Wheelchair - Score, Compre hension - Score, Expression - Score, Social Interaction - Score, Problem Solving - Score, Memory - Sc ore were [electronically] signed by Светлана Felder RN on MonSep 12 2018 15:03:50 GMT-0600 ([facility])
[2018-09-12] MEDS: DOCUSATE NA/SENNA CONC 1 TAB PO PRN (20:33)
[2018-09-12] MEDS: ATORVASTATIN 10 MG TAB PO SCH (20:34)
[2018-09-12] MEDS: PRIMIDONE 50 MG TAB PO SCH (20:34)
[2018-09-12] MEDS: MELATONIN 3 MG TABLET PO PRN (20:34)
[2018-09-12] MEDS: GABAPENTIN 300 MG CAP PO SCH (20:34)
[2018-09-12] MEDS: PROMOD 30 ML DOSE PO SCH (20:35)
--- NOTE | 2018-09-13 00:26 | FAST ---
SHIFT START DATE/TIME: 09/12/2018 19:00 (CONTACT PRINTER DRY FILM) SHIFT END DATE/TIME: 09/13/2018 07:00 (CONTACT PRINTER DRY FILM) NAME VINCE SANDERS DATE OF : 1945 DATE OF ADMISSION: 09/11/2018 17:29 (CONTACT PRINTER DRY FILM) PHONE: AGE: 73 SSN# [id number] GENDER: Female ENCOUNTER PHYSICIAN: Dr. Delmer Gonzalez M.D. ADMISSION DIAGNOSIS: - Orthopaedic Disorders 08 - Unilateral Hip Fracture (08.11) Closed Displaced Midcervical Frcature of Right Femur. EATING: Activity did not occur on this shift EATING - SCORE: 0-UNK GROOMING: Wash, rinse, and dry hands GROOMING - STEP 1: Does the patient require the assistance of a person or device, or need extra time when grooming? Yes. GROOMING - STEP 2: Does the patient require the assistance of a helper? Yes. GROOMING - STEP 3: How much assistance does the patient require from the helper? Only prior equipment preparation/set up from the helper GROOMING - SCORE: 5-SUP BATHING: Activity did not occur on this shift BATHING - SCORE: 0-UNK DRESSING - UPPER BODY: Patient is not dressing in public clothing ARTICLES SCORE Total number of steps: 0 DRESSING - UPPER BODY - SCORE: 0-UNK DRESSING - LOWER BODY: Patient is not dressing in public clothing ARTICLES SCORE Total number of steps: 0 DRESSING - LOWER BODY - SCORE: 0-UNK TOILETING: TOILETING - STEP 1: Does the patient require the assistance of a person or device, or need extra time with toileting? Yes . TOILETING - STEP 2: Does the patient require the assistance of a helper? Yes. TOILETING - STEP 3: How much assistance does the patient require from the helper? Hands-on assistance from the helper TOILETING - STEP 4: Of the 3 tasks: 1) Adjusting clothing prior to use, 2) Cleansing of perineal area, 3) Adjusting clot juana after use; How many tasks does the patient perform WITHOUT assistance of the helper? Two tasks TOILETING - SCORE: 3-MOD BLADDER MANAGEMENT: [place] removes incontinent device (Depends, pull ups, etc.); cleans the patient after accident / inco ntinent episode; and, applies new incontinent device. BLADDER MANAGEMENT - SCORE: 1-DEP BOWEL MANAGEMENT: BOWEL MANAGEMENT - STEP 1: Does the patient control bowels completely and intentionally without equipment devices or medications AND is always continent? No. BOWEL MANAGEMENT - STEP 2: Does the patient require the assistance of a helper? No, patient requires medication for control such as stool softeners, suppositories, laxatives, enemas, or OTC medications BOWEL MANAGEMENT - SCORE: 6-RASHAWN TRANSFERS: BED, CHAIR, WHEELCHAIR: TRANSFERS: BED, CHAIR, WHEELCHAIR - STEP 1: Does the patient require assistance of a person or device, or need extra time with bed, chair, or whe elchair transfers? Yes. TRANSFERS: BED, CHAIR, WHEELCHAIR - STEP 2: Does the patient require the assistance of a helper? Yes. TRANSFERS: BED, CHAIR, WHEELCHAIR - STEP 3: How much assistance does the patient require from the helper? Lifting of the legs TRANSFERS: BED, CHAIR, WHEELCHAIR - STEP 4: How many legs does the patient require the helper to lift? both legs TRANSFERS: BED, CHAIR, WHEELCHAIR - SCORE: 3-MOD TRANSFERS: TOILET: TRANSFERS: TOILET - STEP 1: Does the patient require the assistance of a person or device, or need extra time with toilet transfe rs? Yes. TRANSFERS: TOILET - STEP 2: Does the patient require the assistance of a helper? Yes. TRANSFERS: TOILET - STEP 3: How much assistance does the patient require from the helper? Only supervision, cuing, coaxing, OR he lp to set out transfer equipment or to lock brakes and/or lift foot rests TRANSFERS: TOILET - SCORE: 5-SUP TRANSFERS: SHOWER: Activity did not occur on this shift TRANSFERS: SHOWER - SCORE: 0-UNK TRANSFERS: TUB: Activity did not occur on this shift TRANSFERS: TUB - SCORE: 0-UNK LOCOMOTION: WALK: Activity did not occur on this shift LOCOMOTION: WALK - SCORE: 0-UNK LOCOMOTION: WHEELCHAIR: Activity did not occur on this shift LOCOMOTION: WHEELCHAIR - SCORE: 0-UNK COMPREHENSION: COMPREHENSION: TYPE: Both COMPREHENSION - STEP 1: Does the patient require help from a person or device, or need extra time to understand complex and a bstract ideas (such as current events, finances, discharge planning, medical issues, relationships, e tc)? No. COMPREHENSION - STEP 2: Does the patient need extra time, require an assistive device (such as glasses for visual comprehensi on or a hearing aid for auditory comprehension) or does s/he have mild difficulty understanding compl ex and abstract information? Yes. COMPREHENSION - SCORE: 6-RASHAWN EXPRESSION EXPRESSION: TYPE: Both EXPRESSION - STEP 1: Does the patient require help from a person or device, or need extra time expressing complex and abst ract ideas (such as current events, finances, discharge planning, medical issues, relationships, etc) ? No. EXPRESSION - STEP 2: Does the patient need extra time, require an assistive device (such as augmentive communication syste m or a communication board), OR does s/he have mild difficulty expressing complex and abstract ideas (including mild dysarthria or mild word-find problems)? No. EXPRESSION - SCORE: 7-IND SOCIAL INTERACTION: SOCIAL INTERACTION - STEP 1: Does the patient require a helper to interact with others in social and therapeutic situations? No. SOCIAL INTERACTION - STEP 2: Does the patient need extra time in social situations, OR does s/he interact with staff, other patien ts, and family members ONLY in structured environments, OR does s/he require medication for social in teraction? Yes, patient needs extra time SOCIAL INTERACTION - SCORE: 6-RASHAWN PROBLEM SOLVING: PROBLEM SOLVING - STEP 1: Does the patient need help from a person or device, or need extra time to solve complex problems such as managing a checking account or confronting interpersonal problems? No. PROBLEM SOLVING - STEP 2: Does the patient require extra time to make decisions or solve problems, OR does s/he have slight dif ficulty reading, initiating, or self-correcting in unfamiliar situations? Yes, patient needs extra ti me. PROBLEM SOLVING - SCORE: 6-RASHAWN MEMORY: MEMORY - STEP 1: Does the patient need help from a person or device, or need extra time to remember frequently encount ered people, daily routines, and executing requests? No. MEMORY - STEP 2: Does the patient have slight difficulty recognizing frequently encountered people, daily routines, or executing requests without the need for repetition or using self-initiated or environmental cues to remember? Yes. MEMORY - SCORE: 6-RASHAWN SIGNATURE PANEL: The following modified sections: Eating - Score, Grooming - Score, Dressing - Upper Body - Score, Brent ssing - Lower Body - Score, Toileting - Score, Bladder Management - Score, Bowel Management - Score, Transfers: Bed, Chair, Wheelchair - Score, Transfers: Toilet - Score, Transfers: Shower - Score, St sfers: Tub - Score, Locomotion: Walk - Score, Locomotion: Wheelchair - Score, Comprehension - Score, Expression - Score, Social Interaction - Score, Problem Solving - Score, Memory - Score were [electro nically] signed by Karon Mata CNA on MonSep 13 2018 00:25:28 GMT-0600 (Central Standard Time)
[2018-09-13] MEDS: LEVOTHYROXINE SOD 0.1 MG TAB PO SCH (05:19)
[2018-09-13 06:47] LABS: Absolute Lymphocytes (CBC) 1.5 K/uL (0.7-4.9); Absolute Monocytes 0.6 K/uL (0.1-1.3); Absolute Neutrophil 6.1 K/uL (1.8-8.0); Basophils % 0.6 % (0-1.3); Eosinophils % 1.8 % (0-4.4); Hematocrit 28.2 % (36.0-45.0); Lymphocytes % 17.4 % (15.3-44.8); MPV 8.2 fL (7.6-11.3); Monocytes % 7.6 % (3.3-12.3); RBC Red Blood Cell Count 3.15 M/uL (3.86-4.86)
[2018-09-13] MEDS: INSULIN -REGULAR HUMAN 50 UNIT/0.5 ML ML SQ SCH ×4 (07:10→20:29)
[2018-09-13 07:12] LABS: Albumin 2.4 g/dL (3.4-5.0); Potassium 4.1 mmol/L (3.5-5.1); Prealbumin 9.7 mg/dL (20-40)
[2018-09-13] MEDS: ENOXAPARIN 30 MG/0.3 ML SQ SCH (07:21)
[2018-09-13] MEDS: NPH (HUMAN) 100 UNITS/ML INSULIN SQ SCH ×2 (08:05→17:14)
[2018-09-13] MEDS: METOPROLOL TAR 25 MG TAB PO SCH ×2 (08:06→20:28)
[2018-09-13] MEDS: HYDROCODONE/APAP 5/325 MG TAB PO PRN ×3 (08:07→23:48)
[2018-09-13] MEDS: VENLAFAXINE HCL XR 75 MG CAP PO SCH ×2 (08:07→20:26)
[2018-09-13] MEDS: DIGOXIN 0.125 MG TABLET PO SCH (08:07)
[2018-09-13] MEDS: PIOGLITAZONE 15 MG TAB PO SCH (08:08)
[2018-09-13] MEDS: SPIRONOLACTONE 25 MG TABLET PO SCH (08:08)
[2018-09-13] MEDS: GALANTAMINE 4 MG TAB PO SCH (08:08)
[2018-09-13] MEDS: METFORMIN HCL 500 MG TAB PO SCH ×2 (08:09→17:15)
[2018-09-13] MEDS: BUPROPION HCL XL 150 MG TAB PO SCH (08:09)
[2018-09-13] MEDS: CLOPIDOGREL 75 MG TABLET PO SCH (08:09)
[2018-09-13] MEDS: BUMETANIDE 1 MG TABLET PO SCH (08:09)
[2018-09-13] MEDS: DOCOSAHEXANOIC AC/EPA 1000 MG PO SCH ×2 (08:09→20:26)
[2018-09-13] MEDS: ASPIRIN EC 81 MG TAB PO SCH (08:10)
[2018-09-13] MEDS: PROMOD 30 ML DOSE PO SCH ×2 (08:10→20:29)
[2018-09-13] MEDS: MULTIVITAMIN TAB PO SCH (08:10)
[2018-09-13] MEDS: FE SULF/FA/VIT B COMP & C TAB PO SCH (08:39)
[2018-09-13] MEDS: FERROUS SULFATE 325 MG TAB PO SCH (08:39)
--- NOTE | 2018-09-13 15:00 | FAST ---
ENCOUNTER DATE AND TIME: 09/13/2018 08:00 (CQ DEVELOPER) NAME VINCE SANDERS DATE OF : 1945 DATE OF ADMISSION: 09/11/2018 17:29 (CQ DEVELOPER) PHONE: AGE: 73 SSN# [id number] GENDER: Female ENCOUNTER PHYSICIAN: Dr. Delmer Gonzalez M.D. ADMISSION DIAGNOSIS: - Orthopaedic Disorders 08 - Unilateral Hip Fracture (08.11) Closed Displaced Midcervical Frcature of Right Femur. EATING: Activity did not occur on this shift EATING - SCORE: 0-UNK GROOMING: Activity did not occur on this shift GROOMING - SCORE: 0-UNK BATHING: Activity did not occur on this shift BATHING - SCORE: 0-UNK DRESSING - UPPER BODY: Activity did not occur on this shift Patient is not dressing in public clothing ARTICLES SCORE Total number of steps: 0 DRESSING - UPPER BODY - SCORE: 0-UNK DRESSING - LOWER BODY: Activity did not occur on this shift Patient is not dressing in public clothing ARTICLES SCORE Total number of steps: 0 DRESSING - LOWER BODY - SCORE: 0-UNK TOILETING: Activity did not occur on this shift TOILETING - SCORE: 0-UNK BLADDER MANAGEMENT: Activity did not occur on this shift BLADDER MANAGEMENT - SCORE: 7-IND BOWEL MANAGEMENT: Activity did not occur on this shift BOWEL MANAGEMENT - SCORE: 7-IND TRANSFERS: BED, CHAIR, WHEELCHAIR: TRANSFERS: BED, CHAIR, WHEELCHAIR - STEP 1: Does the patient require assistance of a person or device, or need extra time with bed, chair, or whe elchair transfers? Yes. TRANSFERS: BED, CHAIR, WHEELCHAIR - STEP 2: Does the patient require the assistance of a helper? Yes. TRANSFERS: BED, CHAIR, WHEELCHAIR - STEP 3: How much assistance does the patient require from the helper? Only supervision TRANSFERS: BED, CHAIR, WHEELCHAIR - SCORE: 5-SUP TRANSFERS: TOILET: Activity did not occur on this shift TRANSFERS: TOILET - SCORE: 0-UNK TRANSFERS: SHOWER: Activity did not occur on this shift TRANSFERS: SHOWER - SCORE: 0-UNK TRANSFERS: TUB: Activity did not occur on this shift TRANSFERS: TUB - SCORE: 0-UNK LOCOMOTION: WALK: LOCOMOTION: WALK - STEP 1: Does the patient need help from a person or device, or need extra time to walk 150 feet? Yes. LOCOMOTION: WALK - STEP 2: How much assistance does the patient require to walk a minimum of 150 feet? Only supervision, cuing, or coaxing LOCOMOTION: WALK - SCORE: 5-SUP LOCOMOTION: WHEELCHAIR: Activity did not occur on this shift LOCOMOTION: WHEELCHAIR - SCORE: 0-UNK LOCOMOTION: STAIRS: Activity did not occur on this shift LOCOMOTION: STAIRS - SCORE: 0-UNK COMPREHENSION: COMPREHENSION - SCORE: 0-UNK EXPRESSION EXPRESSION - SCORE: 0-UNK SOCIAL INTERACTION: SOCIAL INTERACTION - SCORE: 0-UNK PROBLEM SOLVING: PROBLEM SOLVING - SCORE: 0-UNK MEMORY: MEMORY - SCORE: 0-UNK SIGNATURE PANEL: The following modified sections: Transfers: Bed, Chair, Wheelchair - Score, Transfers: Toilet - Score , Locomotion: Walk - Score, Locomotion: Wheelchair - Score, Locomotion: Stairs - Score were [electron lupis] signed by Von Cowan PT on MonSep 13 2018 14:59:47 GMT-0600 (Central Standard Time)
--- NOTE | 2018-09-13 15:00 | FAST ---
ENCOUNTER DATE AND TIME: 09/12/2018 08:00 (MANAGER COMMUNITY) NAME VINCE SANDERS DATE OF : 1945 DATE OF ADMISSION: 09/11/2018 17:29 (MANAGER COMMUNITY) PHONE: AGE: 73 SSN# [id number] GENDER: Female ENCOUNTER PHYSICIAN: Dr. Delmer Gonzalez M.D. ADMISSION DIAGNOSIS: - Orthopaedic Disorders 08 - Unilateral Hip Fracture (08.11) Closed Displaced Midcervical Frcature of Right Femur. EATING: Activity did not occur on this shift EATING - SCORE: 0-UNK GROOMING: Activity did not occur on this shift GROOMING - SCORE: 0-UNK BATHING: Activity did not occur on this shift BATHING - SCORE: 0-UNK DRESSING - UPPER BODY: Activity did not occur on this shift Patient is not dressing in public clothing ARTICLES SCORE Total number of steps: 0 DRESSING - UPPER BODY - SCORE: 0-UNK DRESSING - LOWER BODY: Activity did not occur on this shift Patient is not dressing in public clothing ARTICLES SCORE Total number of steps: 0 DRESSING - LOWER BODY - SCORE: 0-UNK TOILETING: Activity did not occur on this shift TOILETING - SCORE: 0-UNK BLADDER MANAGEMENT: Activity did not occur on this shift BLADDER MANAGEMENT - SCORE: 7-IND BOWEL MANAGEMENT: Activity did not occur on this shift BOWEL MANAGEMENT - SCORE: 7-IND TRANSFERS: BED, CHAIR, WHEELCHAIR: TRANSFERS: BED, CHAIR, WHEELCHAIR - STEP 1: Does the patient require assistance of a person or device, or need extra time with bed, chair, or whe elchair transfers? Yes. TRANSFERS: BED, CHAIR, WHEELCHAIR - STEP 2: Does the patient require the assistance of a helper? Yes. TRANSFERS: BED, CHAIR, WHEELCHAIR - STEP 3: How much assistance does the patient require from the helper? Only supervision TRANSFERS: BED, CHAIR, WHEELCHAIR - SCORE: 5-SUP TRANSFERS: TOILET: Activity did not occur on this shift TRANSFERS: TOILET - SCORE: 0-UNK TRANSFERS: SHOWER: Activity did not occur on this shift TRANSFERS: SHOWER - SCORE: 0-UNK TRANSFERS: TUB: Activity did not occur on this shift TRANSFERS: TUB - SCORE: 0-UNK LOCOMOTION: WALK: LOCOMOTION: WALK - STEP 1: Does the patient need help from a person or device, or need extra time to walk 150 feet? Yes. LOCOMOTION: WALK - STEP 2: How much assistance does the patient require to walk a minimum of 150 feet? Only supervision, cuing, or coaxing LOCOMOTION: WALK - SCORE: 5-SUP LOCOMOTION: WHEELCHAIR: Activity did not occur on this shift LOCOMOTION: WHEELCHAIR - SCORE: 0-UNK LOCOMOTION: STAIRS: LOCOMOTION: STAIRS - STEP 1: Does the patient need help to go up and down 12 to 14 stairs? Yes. LOCOMOTION: STAIRS - STEP 2: How much assistance does the patient need from the helper to go a minimum of 12 to 14 stairs? The pat ient goes less than 12 stairs, but at least 4 stairs LOCOMOTION: STAIRS - SCORE: 2-MAX COMPREHENSION: COMPREHENSION - SCORE: 0-UNK EXPRESSION EXPRESSION - SCORE: 0-UNK SOCIAL INTERACTION: SOCIAL INTERACTION - SCORE: 0-UNK PROBLEM SOLVING: PROBLEM SOLVING - SCORE: 0-UNK MEMORY: MEMORY - SCORE: 0-UNK SIGNATURE PANEL: The following modified sections: Transfers: Bed, Chair, Wheelchair - Score, Transfers: Toilet - Score , Locomotion: Walk - Score, Locomotion: Wheelchair - Score, Locomotion: Stairs - Score were [electron lupis] signed by Von Cowan PT on MonSep 13 2018 14:58:43 GMT-0600 (Central Standard Time)
--- NOTE | 2018-09-13 15:27 | FAST ---
SHIFT START DATE/TIME: 09/13/2018 07:00 (RAILROAD INSPECTOR) SHIFT END DATE/TIME: 09/13/2018 19:00 (RAILROAD INSPECTOR) NAME VINCE SANDERS DATE OF : 1945 DATE OF ADMISSION: 09/11/2018 17:29 (RAILROAD INSPECTOR) PHONE: AGE: 73 SSN# [id number] GENDER: Female ENCOUNTER PHYSICIAN: Dr. Delmer Gonzalez M.D. ADMISSION DIAGNOSIS: - Orthopaedic Disorders 08 - Unilateral Hip Fracture (08.11) Closed Displaced Midcervical Frcature of Right Femur. EATING: EATING - STEP 1: Does the patient require the assistance of a person or device, or need extra time when eating? Yes. EATING - STEP 2: Does the patient require the assistance of a helper? Yes. EATING - STEP 3: Does the patient perform half or more of the eating tasks? Yes. EATING - STEP 4: Does the patient need only supervision, cuing, coaxing OR help to apply an orthosis OR help to cut fo od, open containers, pour liquids, or butter bread? Yes. EATING - SCORE: 5-SUP GROOMING: Comb/brush hair Oral care Wash, rinse, and dry face Wash, rinse, and dry hands GROOMING - STEP 1: Does the patient require the assistance of a person or device, or need extra time when grooming? Yes. GROOMING - STEP 2: Does the patient require the assistance of a helper? Yes. GROOMING - STEP 3: How much assistance does the patient require from the helper? Only prior equipment preparation/set up from the helper GROOMING - SCORE: 5-SUP BATHING: Activity did not occur on this shift BATHING - SCORE: 0-UNK DRESSING - UPPER BODY: T-shirt/pullover shirt (four steps) ARTICLES SCORE Total number of steps: 4 DRESSING - UPPER BODY - STEP 1: Does the patient require help from a person or device, or need extra time when dressing above the bre[address] st? Yes. DRESSING - UPPER BODY - STEP 2: Does the patient require the assistance of a helper? Yes. DRESSING - UPPER BODY - STEP 3: Does the helper touch the patient while dressing? No. DRESSING - UPPER BODY - SCORE: 5-SUP DRESSING - LOWER BODY: Elastic waist pants (three steps) Underwear (three steps) ARTICLES SCORE Total number of steps: 6 DRESSING - LOWER BODY - STEP 1: Does the patient require help from a person or device, or need extra time when dressing below the bre[address] st? Yes. DRESSING - LOWER BODY - STEP 2: Does the patient require the assistance of a helper? Yes. DRESSING - LOWER BODY - STEP 3: Does the helper touch the patient while dressing? Yes. DRESSING - LOWER BODY - STEP 4: How many of the total steps does the patient complete on his/her own? 4 DRESSING - LOWER BODY - SCORE: 3-MOD TOILETING: TOILETING - STEP 1: Does the patient require the assistance of a person or device, or need extra time with toileting? Yes . TOILETING - STEP 2: Does the patient require the assistance of a helper? Yes. TOILETING - STEP 3: How much assistance does the patient require from the helper? Hands-on assistance from the helper TOILETING - STEP 4: Of the 3 tasks: 1) Adjusting clothing prior to use, 2) Cleansing of perineal area, 3) Adjusting clot juana after use; How many tasks does the patient perform WITHOUT assistance of the helper? Two tasks TOILETING - SCORE: 3-MOD BLADDER MANAGEMENT: BLADDER MANAGEMENT - STEP 1: Does the patient control the bladder completely and intentionally without equipment or devices or med ications, and is always continent? No. BLADDER MANAGEMENT - STEP 2: Does the patient require the assistance of a helper? No, patient requires and independently uses an a ssistive device, such as a urinal, bedpan, bedside commode, catheter, absorbent pad, or collecting de vice BLADDER MANAGEMENT - SCORE: 6-RASHAWN BLADDER MANAGEMENT - FREQUENCY OF ACCIDENTS: BLADDER MANAGEMENT(FA) - STEP 1: How many accidents has the patient had during the current shift? 2 BOWEL MANAGEMENT: BOWEL MANAGEMENT - STEP 1: Does the patient control bowels completely and intentionally without equipment devices or medications AND is always continent? Yes. BOWEL MANAGEMENT - SCORE: 7-IND BOWEL MANAGEMENT - FREQUENCY OF ACCIDENTS: BOWEL MANAGEMENT(FA) - STEP 1: How many accidents has the patient had during the current shift? 0 TRANSFERS: BED, CHAIR, WHEELCHAIR: TRANSFERS: BED, CHAIR, WHEELCHAIR - STEP 1: Does the patient require assistance of a person or device, or need extra time with bed, chair, or whe elchair transfers? Yes. TRANSFERS: BED, CHAIR, WHEELCHAIR - STEP 2: Does the patient require the assistance of a helper? Yes. TRANSFERS: BED, CHAIR, WHEELCHAIR - STEP 3: How much assistance does the patient require from the helper? Lifting of the legs TRANSFERS: BED, CHAIR, WHEELCHAIR - STEP 4: How many legs does the patient require the helper to lift? both legs TRANSFERS: BED, CHAIR, WHEELCHAIR - SCORE: 3-MOD TRANSFERS: TOILET: TRANSFERS: TOILET - STEP 1: Does the patient require the assistance of a person or device, or need extra time with toilet transfe rs? Yes. TRANSFERS: TOILET - STEP 2: Does the patient require the assistance of a helper? Yes. TRANSFERS: TOILET - STEP 3: How much assistance does the patient require from the helper? Patient performs half or more of the tr ansferring tasks TRANSFERS: TOILET - STEP 4: Does the patient need only incidental help such as contact guard or steadying during toilet transfer? Yes. TRANSFERS: TOILET - SCORE: 4-MIN TRANSFERS: SHOWER: Activity did not occur on this shift TRANSFERS: SHOWER - SCORE: 0-UNK TRANSFERS: TUB: Activity did not occur on this shift TRANSFERS: TUB - SCORE: 0-UNK LOCOMOTION: WALK: Activity did not occur on this shift LOCOMOTION: WALK - SCORE: 0-UNK LOCOMOTION: WHEELCHAIR: LOCOMOTION: WHEELCHAIR - STEP 1: Does the patient need help to go 150 feet in a wheelchair? Yes. LOCOMOTION: WHEELCHAIR - STEP 2: How much assistance does the patient need from the helper? Only incidental help such as around corner s or over thresholds LOCOMOTION: WHEELCHAIR - SCORE: 4-MIN COMPREHENSION: COMPREHENSION: TYPE: Both COMPREHENSION - STEP 1: Does the patient require help from a person or device, or need extra time to understand complex and a bstract ideas (such as current events, finances, discharge planning, medical issues, relationships, e tc)? Yes. COMPREHENSION - STEP 2: Does the patient require help to understand questions or statements about basic needs or ideas (such as hunger, thirst, sleep, safety, daily schedule, room location, or discomfort) half or more of the t nan? Yes. COMPREHENSION - STEP 3: Is the patient basically able to understand and respond appropriately and consistently? Yes. COMPREHENSION - SCORE: 2-MAX EXPRESSION EXPRESSION: TYPE: Both EXPRESSION - STEP 1: Does the patient require help from a person or device, or need extra time expressing complex and abst ract ideas (such as current events, finances, discharge planning, medical issues, relationships, etc) ? Yes. EXPRESSION - STEP 2: Does the patient require help to express basic necessities or ideas (such as hunger, thirst, sleep, s afety, daily schedule, room location, or discomfort) half or more of the time? No. EXPRESSION - STEP 3: How often does the patient need help to express directions and conversation about basic needs? Less t miranda 10% of the time EXPRESSION - SCORE: 5-SUP SOCIAL INTERACTION: SOCIAL INTERACTION - STEP 1: Does the patient require a helper to interact with others in social and therapeutic situations? No. SOCIAL INTERACTION - STEP 2: Does the patient need extra time in social situations, OR does s/he interact with staff, other patien ts, and family members ONLY in structured environments, OR does s/he require medication for social in teraction? No. SOCIAL INTERACTION - SCORE: 7-IND PROBLEM SOLVING: Patient requires bed/chair alarms due to attempts to get up unassisted when helper is needed. PROBLEM SOLVING - STEP 1: How often do the bed/chair alarms go off? Occasionally - the alarms go off about 25% or less PROBLEM SOLVING - SCORE: 4-MIN MEMORY: MEMORY - STEP 1: How often do the bed/chair alarms go off? Occasionally - the alarms go off about 25% of the time or l ess MEMORY - SCORE: 4-MIN SIGNATURE PANEL: The following modified sections: Eating - Score, Grooming - Score, Bathing - Score, Dressing - Upper Body - Score, Dressing - Lower Body - Score, Toileting - Score, Bladder Management - Score, Bowel Man agement - Score, Transfers: Bed, Chair, Wheelchair - Score, Transfers: Toilet - Score, Transfers: Donna wer - Score, Transfers: Tub - Score, Locomotion: Walk - Score, Comprehension - Score, Expression - Sc ore, Social Interaction - Score, Problem Solving - Score, Memory - Score, Locomotion: Wheelchair - Sc ore were [electronically] signed by Angelia Cerda RN on MonSep 13 2018 15:27:22 T-0600 ([facility])
--- NOTE | 2018-09-13 17:44 | R.PN ---
ENCOUNTER DATE AND TIME: 09/13/2018 17:40 (TRACK LAYER) NAME VINCE SANDERS DATE OF : 1945 DATE OF ADMISSION: 09/11/2018 17:29 (TRACK LAYER) Closed Displaced Midcervical Frcature of Right FemurCHIEF COMPLAINT: Right femur fracture SUBJECTIVE: Pt denied any Shortness of Breath. Pt denied any depression. Ambulated 650' with standby assistance using a rolling walker. VITAL SIGNS Temperature: 98 F SBP/DBP: 131/54 Pulse: 80 Resp: 15 MEDICATION ALLERGIES: No Known Drug Allergies (NKDA) ENVIRONMENTAL ALLERGIES: None Known - Substance Allergies None Known - Other Allergies None Known NURSING: - Shower allowing shower - Lab Results blood Sugar Check ACHS - Skin care per protocol PRECAUTIONS: - Posterior Hip Precaution No adduction across midline No external rotation No hip flexion >90 degrees No internal rotation No wheel chair propulsion - Weight Bearing Precaution WBAT right LE ACTIVITIES OOB only with supervision THERAPIES: - Occupational Therapy Evaluate and Treat. - Physical Therapy Evaluate and Treat. PHYSICAL EXAM - Gen Alert and awake Lying in bed No apparent distress Oriented to: person, time, and place - Skin No beakdown No abnormalities - Eyes No abnormalities - ENMT No abnormalities - Neck No abnormalities - CVS RRR - Chest Clear - Abd + bowel sounds - GI Soft Deferred - No abnormalities - Ext Right hip surgical site has good hemostasis. - MSK 4+/5 weakness in right lower extremity. - Neuro 4/5 strength right lower extremity - Psych No abnormalities ASSESSMENT: Pt. is a 73 yo Right-handed white female.On 09/05/2018 she was admitted to [facility] with diagnosis Closed Displaced Midcervical Frcature of Right Femur.Her impairment category is Orth opaedic Disorders 08 - Unilateral Hip Fracture (08.11).Pre-morbidly, Pt. was independent/mod-I in Se lf-Care, Locomotion, Sphincter Control, Transfers Control, Communication, and Social Cognition; and s he had good Sphincter Control.Currently, she has deficits of Balance, Locomotion, Endurance, Safety A wareness, Transfers Control, and Self-Care.Pt. is now referred to [facility] f or acute in-patient rehabilitation in order to maximize patient's functional independence in activiti es of daily living, strength, ROM, and mobility.- Rehab Goal Patient has realistic goal of being discharged at assistance level 6-Josias to reside at Home with Fam alma delia/Relatives. MDM/PLAN: - Physical Therapy Decreased range of motion - to improve, our physical therapists will perform initial evaluation of p t's status upon admission and devise an individualized program for increasing patient's Range of Alex on. Gait dysfunction - to improve, our physical therapists will perform initial evaluation of pt's statu s upon admission and devise an individualized program for Gait Training, and Wheel Chair mobility Inability to transfer - to improve, our physical therapists will perform initial evaluation of pt's status upon admission and devise an individualized program for Bed mobility Need for home safety evaluation - to improve, our physical therapists will perform initial evaluatio n of pt's status upon admission and devise an individualized program for Home Evaluation Need in caregiver upon discharge - to improve, our physical therapists will perform initial evaluati on of pt's status upon admission and devise an individualized program for Caregiver Training New precaution - to improve, our physical therapists will perform initial evaluation of pt's status upon admission and devise an individualized program for Patient precaution education Poor balance - to improve, our physical therapists will perform initial evaluation of pt's status up on admission and devise an individualized program for Balance Training Poor endurance - to improve, our physical therapists will perform initial evaluation of pt's status upon admission and devise an individualized program for Endurance Training Weakness - to improve, our physical therapists will perform initial evaluation of pt's status upon a dmission and devise an individualized program for Aquatic Therapy, Neuromuscular Reeducation, and Str engthening Achieving independence - to improve, our physical therapists will perform initial evaluation of pt's status upon admission and devise an individualized program for Community Reintegration Activities - Occupational Therapy ADL deficits - to improve, our occupation therapists will perform initial evaluation of pt's status upon admission and devise an individualized program for Bathing, Bed mobility, Community Reintegratio n, Cooking, Dressing, Eating, Fine Motor Skills, Grooming, Homemaking, Kitchen Mobility, Laundry, Pat ient Education, Safety Awareness, Splinting - Positioning, Transfers(Toilet, Tub, Shower), and Wheel Chair Management Need for career development director - to improve, our occupation therapists will perform initial evaluation of pt's status upon admission and devise an individualized program for Caregiver Training Weakness - to improve, our occupation therapists will perform initial evaluation of pt's status upon admission and devise an individualized program for Aquatic Therapy, Balance, Endurance, UE ROM, and UE strengthening - Anterior Hip Precaution No abduction No active extension No adduction across midline No external rotation No hip flexion >90 degrees No internal rotation - Diet - Liquid Texture Continue Regular - Tube Feed Continue N/A - Diet Type Continue Regular - Posterior Hip Precaution No adduction across midline No external rotation No hip flexion >90 degrees No internal rotation No wheel chair propulsion - Lab Results blood Sugar Check ACHS - Weight Bearing Precaution WBAT right LE - Skin care per protocol - Diet - Solid Texture Continue Regular - Shower allowing shower FUNCTIONAL STATUS: UPDATED AT WEEKLY TEAM CONFERENCE - Bladder Same accident frequency: 7-Ind - No accidents in the past 7 days - Bowel Same accident frequency: 7-Ind - No accidents in the past 7 days - Walking Same score based on distance walked: 1(<=50ft) - Wheelchair Same score based on distance traveled: 0(N/A) FUNCTIONAL STATUS: - Self-Care A. Eating Ind B. Grooming Ind C. Bathing sup D. Dressing - Upper sup E. Dressing - Lower modA F. Toileting maxA - Sphincter Control G: Bladder control Ind H: Bowel control Ind - Transfers Control I. Bed/Chair/Wheelchair min-to-modA J. Toilet modA K. Tub/Shower ADNO - Locomotion L. Walk/Wheelchair (C) modA L. Walk/Wheelchair (W) modA M. Stairs ADNO - Communication N. Comprehension (B) Josias O. Expression (B) Josias - Social Cognition P. Social Interaction Josias Q. Problem Solving Josias R. Memory Josias - Endurance Fair - Balance Fair - Safety Awareness Fair CURRENT FUNC. DEFICITS: Balance, Locomotion, Endurance, Safety Awareness, Transfers Control, and Self-Care SIGNATURE PANEL: (TRACK LAYER)
[2018-09-13] MEDS: ATORVASTATIN 10 MG TAB PO SCH (20:27)
[2018-09-13] MEDS: GABAPENTIN 300 MG CAP PO SCH (20:28)
[2018-09-13] MEDS: PRIMIDONE 50 MG TAB PO SCH (20:29)
[2018-09-13] MEDS: MELATONIN 3 MG TABLET PO PRN (20:29)
--- NOTE | 2018-09-14 01:37 | FAST ---
SHIFT START DATE/TIME: 09/13/2018 19:00 (RISK PREVENTION ENGINEER) SHIFT END DATE/TIME: 09/14/2018 07:00 (RISK PREVENTION ENGINEER) NAME VINCE SANDERS DATE OF : 1945 DATE OF ADMISSION: 09/11/2018 17:29 (RISK PREVENTION ENGINEER) PHONE: AGE: 73 SSN# [id number] GENDER: Female ENCOUNTER PHYSICIAN: Dr. Delmer Gonzalez M.D. ADMISSION DIAGNOSIS: - Orthopaedic Disorders 08 - Unilateral Hip Fracture (08.11) Closed Displaced Midcervical Frcature of Right Femur. EATING: Activity did not occur on this shift EATING - SCORE: 0-UNK GROOMING: Wash, rinse, and dry hands GROOMING - STEP 1: Does the patient require the assistance of a person or device, or need extra time when grooming? Yes. GROOMING - STEP 2: Does the patient require the assistance of a helper? Yes. GROOMING - STEP 3: How much assistance does the patient require from the helper? Only prior equipment preparation/set up from the helper GROOMING - SCORE: 5-SUP BATHING: Activity did not occur on this shift BATHING - SCORE: 0-UNK DRESSING - UPPER BODY: Patient is not dressing in public clothing ARTICLES SCORE Total number of steps: 0 DRESSING - UPPER BODY - SCORE: 0-UNK DRESSING - LOWER BODY: Patient is not dressing in public clothing ARTICLES SCORE Total number of steps: 0 DRESSING - LOWER BODY - SCORE: 0-UNK TOILETING: TOILETING - STEP 1: Does the patient require the assistance of a person or device, or need extra time with toileting? Yes . TOILETING - STEP 2: Does the patient require the assistance of a helper? Yes. TOILETING - STEP 3: How much assistance does the patient require from the helper? Hands-on assistance from the helper TOILETING - STEP 4: Of the 3 tasks: 1) Adjusting clothing prior to use, 2) Cleansing of perineal area, 3) Adjusting clot juana after use; How many tasks does the patient perform WITHOUT assistance of the helper? Two tasks TOILETING - SCORE: 3-MOD BLADDER MANAGEMENT: [place] removes incontinent device (Depends, pull ups, etc.); cleans the patient after accident / inco ntinent episode; and, applies new incontinent device. BLADDER MANAGEMENT - SCORE: 1-DEP BOWEL MANAGEMENT: Activity did not occur on this shift BOWEL MANAGEMENT - SCORE: 7-IND TRANSFERS: BED, CHAIR, WHEELCHAIR: TRANSFERS: BED, CHAIR, WHEELCHAIR - STEP 1: Does the patient require assistance of a person or device, or need extra time with bed, chair, or whe elchair transfers? Yes. TRANSFERS: BED, CHAIR, WHEELCHAIR - STEP 2: Does the patient require the assistance of a helper? Yes. TRANSFERS: BED, CHAIR, WHEELCHAIR - STEP 3: How much assistance does the patient require from the helper? Lifting of the legs TRANSFERS: BED, CHAIR, WHEELCHAIR - STEP 4: How many legs does the patient require the helper to lift? both legs TRANSFERS: BED, CHAIR, WHEELCHAIR - SCORE: 3-MOD TRANSFERS: TOILET: TRANSFERS: TOILET - STEP 1: Does the patient require the assistance of a person or device, or need extra time with toilet transfe rs? Yes. TRANSFERS: TOILET - STEP 2: Does the patient require the assistance of a helper? Yes. TRANSFERS: TOILET - STEP 3: How much assistance does the patient require from the helper? Patient performs half or more of the tr ansferring tasks TRANSFERS: TOILET - STEP 4: Does the patient need only incidental help such as contact guard or steadying during toilet transfer? Yes. TRANSFERS: TOILET - SCORE: 4-MIN TRANSFERS: SHOWER: Activity did not occur on this shift TRANSFERS: SHOWER - SCORE: 0-UNK TRANSFERS: TUB: Activity did not occur on this shift TRANSFERS: TUB - SCORE: 0-UNK LOCOMOTION: WALK: Activity did not occur on this shift LOCOMOTION: WALK - SCORE: 0-UNK LOCOMOTION: WHEELCHAIR: Activity did not occur on this shift LOCOMOTION: WHEELCHAIR - SCORE: 0-UNK COMPREHENSION: COMPREHENSION: TYPE: Both COMPREHENSION - STEP 1: Does the patient require help from a person or device, or need extra time to understand complex and a bstract ideas (such as current events, finances, discharge planning, medical issues, relationships, e tc)? No. COMPREHENSION - STEP 2: Does the patient need extra time, require an assistive device (such as glasses for visual comprehensi on or a hearing aid for auditory comprehension) or does s/he have mild difficulty understanding compl ex and abstract information? Yes. COMPREHENSION - SCORE: 6-RASHAWN EXPRESSION EXPRESSION: TYPE: Both EXPRESSION - STEP 1: Does the patient require help from a person or device, or need extra time expressing complex and abst ract ideas (such as current events, finances, discharge planning, medical issues, relationships, etc) ? No. EXPRESSION - STEP 2: Does the patient need extra time, require an assistive device (such as augmentive communication syste m or a communication board), OR does s/he have mild difficulty expressing complex and abstract ideas (including mild dysarthria or mild word-find problems)? Yes. EXPRESSION - SCORE: 6-RASHAWN SOCIAL INTERACTION: SOCIAL INTERACTION - STEP 1: Does the patient require a helper to interact with others in social and therapeutic situations? No. SOCIAL INTERACTION - STEP 2: Does the patient need extra time in social situations, OR does s/he interact with staff, other patien ts, and family members ONLY in structured environments, OR does s/he require medication for social in teraction? Yes, patient needs extra time SOCIAL INTERACTION - SCORE: 6-RASHAWN PROBLEM SOLVING: PROBLEM SOLVING - STEP 1: Does the patient need help from a person or device, or need extra time to solve complex problems such as managing a checking account or confronting interpersonal problems? Yes. PROBLEM SOLVING - STEP 2: Does the patient solve basic routine problems half or more of the time? Yes. PROBLEM SOLVING - STEP 3: How often does the patient need help to solve basic routine problems? 10%-24% of the time PROBLEM SOLVING - SCORE: 4-MIN MEMORY: MEMORY - STEP 1: Does the patient need help from a person or device, or need extra time to remember frequently encount ered people, daily routines, and executing requests? No. MEMORY - STEP 2: Does the patient have slight difficulty recognizing frequently encountered people, daily routines, or executing requests without the need for repetition or using self-initiated or environmental cues to remember? Yes. MEMORY - SCORE: 6-RASHAWN SIGNATURE PANEL: The following modified sections: Eating - Score, Grooming - Score, Dressing - Upper Body - Score, Brent ssing - Lower Body - Score, Toileting - Score, Bladder Management - Score, Bowel Management - Score, Transfers: Bed, Chair, Wheelchair - Score, Transfers: Toilet - Score, Transfers: Shower - Score, St sfers: Tub - Score, Locomotion: Walk - Score, Locomotion: Wheelchair - Score, Comprehension - Score, Expression - Score, Social Interaction - Score, Problem Solving - Score, Memory - Score were [electro nically] signed by Karon Mata CNA on MonSep 14 2018 01:36:34 GMT-0600 (Central Standard Time)
[2018-09-14] MEDS: LEVOTHYROXINE SOD 0.1 MG TAB PO SCH (05:02)
[2018-09-14] MEDS: INSULIN -REGULAR HUMAN 50 UNIT/0.5 ML ML SQ SCH ×4 (07:30→20:04)
[2018-09-14] MEDS: ENOXAPARIN 30 MG/0.3 ML SQ SCH (07:30)
[2018-09-14] MEDS: NPH (HUMAN) 100 UNITS/ML INSULIN SQ SCH ×2 (07:30→16:35)
[2018-09-14] MEDS: PROMOD 30 ML DOSE PO SCH ×2 (08:00→20:00)
[2018-09-14] MEDS: HYDROCODONE/APAP 5/325 MG TAB PO PRN ×3 (08:00→16:42)
[2018-09-14] MEDS: METOPROLOL TAR 25 MG TAB PO SCH ×2 (08:00→20:03)
[2018-09-14] MEDS: BUPROPION HCL XL 150 MG TAB PO SCH (08:01)
[2018-09-14] MEDS: MULTIVITAMIN TAB PO SCH (08:01)
[2018-09-14] MEDS: FERROUS SULFATE 325 MG TAB PO SCH (08:01)
[2018-09-14] MEDS: ASPIRIN EC 81 MG TAB PO SCH (08:01)
[2018-09-14] MEDS: DOCOSAHEXANOIC AC/EPA 1000 MG PO SCH ×2 (08:02→20:02)
[2018-09-14] MEDS: DIGOXIN 0.125 MG TABLET PO SCH (08:02)
[2018-09-14] MEDS: BUMETANIDE 1 MG TABLET PO SCH (08:03)
[2018-09-14] MEDS: METFORMIN HCL 500 MG TAB PO SCH ×2 (08:03→16:36)
[2018-09-14] MEDS: SPIRONOLACTONE 25 MG TABLET PO SCH (08:04)
[2018-09-14] MEDS: FE SULF/FA/VIT B COMP & C TAB PO SCH (08:05)
[2018-09-14] MEDS: VENLAFAXINE HCL XR 75 MG CAP PO SCH ×2 (08:05→20:02)
[2018-09-14] MEDS: GALANTAMINE 4 MG TAB PO SCH (08:05)
[2018-09-14] MEDS: CLOPIDOGREL 75 MG TABLET PO SCH (08:05)
[2018-09-14] MEDS: PIOGLITAZONE 15 MG TAB PO SCH (08:06)
--- NOTE | 2018-09-14 09:56 | P.RH.PN ---
Estimated Length of Stay: 14 Expected Discharge Date: 09/23/18 Discharge Disposition Plan: Home Family Support: Yes Penitentiary Goal: Mobility, Transfers, Self Care Vital Signs: Last Vital Signs Temp 96.3 F L 09/14/18 06:50 Pulse 74 09/14/18 08:04 Resp 16 09/14/18 06:50 BP 116/51 L 09/14/18 08:04 Pulse Ox 93 09/14/18 06:50 Laboratory: Laboratory Last Values WBC 8.4 K/uL (4.3-10.9) D 09/13/18 06:30 RBC 3.15 M/uL (3.86-4.86) L 09/13/18 06:30 Hgb 9.5 g/dL (12.0-15.0) L 09/13/18 06:30 Hct 28.2 % (36.0-45.0) L 09/13/18 06:30 MCV 89.4 fL (80-100) 09/13/18 06:30 MCH 30.2 pg (27.0-35.0) 09/13/18 06:30 MCHC 33.8 g/dL (32.0-36.0) 09/13/18 06:30 RDW 14.4 % (12.1-15.2) 09/13/18 06:30 Plt Count 271 K/uL (152-406) 09/13/18 06:30 MPV 8.2 fL (7.6-11.3) 09/13/18 06:30 Neutrophils % 72.6 % (41.7-73.7) 09/13/18 06:30 Lymphocytes % 17.4 % (15.3-44.8) 09/13/18 06:30 Monocytes % 7.6 % (3.3-12.3) 09/13/18 06:30 Eosinophils % 1.8 % (0-4.4) 09/13/18 06:30 Basophils % 0.6 % (0-1.3) 09/13/18 06:30 Absolute Neutrophils 6.1 K/uL (1.8-8.0) 09/13/18 06:30 Absolute Lymphocytes 1.5 K/uL (0.7-4.9) 09/13/18 06:30 Absolute Monocytes 0.6 K/uL (0.1-1.3) 09/13/18 06:30 Absolute Eosinophils 0.2 K/uL (0-0.5) 09/13/18 06:30 Absolute Basophils 0.0 K/uL (0-0.5) 09/13/18 06:30 Sodium 139 mmol/L (136-145) 09/13/18 06:30 Potassium 4.1 mmol/L (3.5-5.1) 09/13/18 06:30 Chloride 104 mmol/L (98-107) 09/13/18 06:30 Carbon Dioxide 29 mmol/L (21-32) 09/13/18 06:30 BUN 13 mg/dL (7-18) 09/13/18 06:30 Creatinine 0.65 mg/dL (0.55-1.3) 09/13/18 06:30 Estimated GFR 90 mL/min (=/>90) 09/13/18 06:30 Glucose 143 mg/dL (74-106) H 09/13/18 06:30 POC Glucose 142 mg/dl (65-120) H 09/14/18 06:47 Calcium 8.6 mg/dL (8.5-10.1) 09/13/18 06:30 Magnesium 2.0 mg/dL (1.8-2.4) 09/12/18 06:18 Albumin 2.4 g/dL (3.4-5.0) L 09/13/18 06:30 Prealbumin 9.7 mg/dL (20-40) L 09/13/18 06:30 Urine Color Yellow 09/11/18 19:20 Urine Appearance Cloudy 09/11/18 19:20 Urine pH 8.5 (5.0-7.0) H 09/11/18 19:20 Ur Specific [place] 1.015 (1.005-1.030) 09/11/18 19:20 Urine Ketones Negative (NEG) 09/11/18 19:20 Urine Blood Negative (NEG) 09/11/18 19:20 Urine Nitrite Negative (NEG) 09/11/18 19:20 Urine Bilirubin Negative (NEG) 09/11/18 19:20 Urine Urobilinogen 1.0 mg/dL (0.2-1.0) 09/11/18 19:20 Ur Leukocyte Esterase 3+ (NEG) H 09/11/18 19:20 Urine RBC None seen /HPF (NONE SEEN) 09/11/18 19:20 Urine WBC 5-10 /HPF (<5) H 09/11/18 19:20 Ur Squamous Epith Cells <5 /HPF (NONE SEEN) 09/11/18 19:20 Urine Bacteria >50 /HPF (<20) H 09/11/18 19:20 Urine Culture Reflexed Not needed 09/11/18 19:20 Urine Glucose 1+ (NEG) H 09/11/18 19:20 Urine Total Protein Trace (NEG) 09/11/18 19:20 Digoxin 0.60 ng/mL (0.80-2.00) L 09/12/18 06:18 Weight: 214 lb 1 oz Wound Present: No Closed Surgical Incision Present: Yes Negative Pressure Wound Therapy Present: No Physician Update: Labs have been reviewed and are stable with mildly decreased Hgb. She is taking hemocyte plus. Her prealbumin is low at 9.7. She is doing well with physical and occupational therapy. Walking 175' with standby assistance. Up and down 10 steps with contact guard assistance. Medical Issues: DVT Prophylaxis - Lovenox 30mg SQ Daily Pain Issues: Tracy 5/325mg Q4H PRN PO Functional Improvement: pt is participating well. She does fatigue quickly and is limited some by pain. Continued motivation may be a limiting factor, so we need to keep pt encouraged and engaged in therapy. Functional Improvement Occupational Therapy: Good participation and motivation. Will require use and education in use of adaptive equipment. Summary: Patient's care plan and alf goals have been reviewed and revised as necessary. Please see the Rehabilitation Signature page for all necessary signatures.
--- NOTE | 2018-09-14 10:12 | FAST ---
SHIFT START DATE/TIME: 09/14/2018 07:00 (DIRECTOR REVENUE) SHIFT END DATE/TIME: 09/14/2018 19:00 (DIRECTOR REVENUE) NAME VINCE SANDERS DATE OF : 1945 DATE OF ADMISSION: 09/11/2018 17:29 (DIRECTOR REVENUE) PHONE: AGE: 73 SSN# [id number] GENDER: Female ENCOUNTER PHYSICIAN: Dr. Delmer Gonzalez M.D. ADMISSION DIAGNOSIS: - Orthopaedic Disorders 08 - Unilateral Hip Fracture (08.11) Closed Displaced Midcervical Frcature of Right Femur. EATING: EATING - STEP 1: Does the patient require the assistance of a person or device, or need extra time when eating? No. EATING - SCORE: 7-IND GROOMING: GROOMING - STEP 1: Does the patient require the assistance of a person or device, or need extra time when grooming? Yes. GROOMING - STEP 2: Does the patient require the assistance of a helper? No. The patient only requires an assistive devic e, OR takes more than reasonable time to groom, OR there is a concern for safety as the patient groom s GROOMING - SCORE: 6-RASHAWN BATHING: Activity did not occur on this shift BATHING - SCORE: 0-UNK DRESSING - UPPER BODY: Activity did not occur on this shift ARTICLES SCORE Total number of steps: 0 DRESSING - UPPER BODY - SCORE: 0-UNK DRESSING - LOWER BODY: Activity did not occur on this shift ARTICLES SCORE Total number of steps: 0 DRESSING - LOWER BODY - SCORE: 0-UNK TOILETING: TOILETING - STEP 1: Does the patient require the assistance of a person or device, or need extra time with toileting? Yes . TOILETING - STEP 2: Does the patient require the assistance of a helper? Yes. TOILETING - STEP 3: How much assistance does the patient require from the helper? Only supervision TOILETING - SCORE: 5-SUP BLADDER MANAGEMENT: BLADDER MANAGEMENT - STEP 1: Does the patient control the bladder completely and intentionally without equipment or devices or med ications, and is always continent? Yes. BLADDER MANAGEMENT - SCORE: 7-IND BLADDER MANAGEMENT - FREQUENCY OF ACCIDENTS: BLADDER MANAGEMENT(FA) - STEP 1: How many accidents has the patient had during the current shift? 0 BOWEL MANAGEMENT: BOWEL MANAGEMENT - STEP 1: Does the patient control bowels completely and intentionally without equipment devices or medications AND is always continent? Yes. BOWEL MANAGEMENT - SCORE: 7-IND BOWEL MANAGEMENT - FREQUENCY OF ACCIDENTS: BOWEL MANAGEMENT(FA) - STEP 1: How many accidents has the patient had during the current shift? 0 TRANSFERS: BED, CHAIR, WHEELCHAIR: TRANSFERS: BED, CHAIR, WHEELCHAIR - STEP 1: Does the patient require assistance of a person or device, or need extra time with bed, chair, or whe elchair transfers? Yes. TRANSFERS: BED, CHAIR, WHEELCHAIR - STEP 2: Does the patient require the assistance of a helper? Yes. TRANSFERS: BED, CHAIR, WHEELCHAIR - STEP 3: How much assistance does the patient require from the helper? Steadying/guiding assistance TRANSFERS: BED, CHAIR, WHEELCHAIR - SCORE: 4-MIN TRANSFERS: TOILET: TRANSFERS: TOILET - STEP 1: Does the patient require the assistance of a person or device, or need extra time with toilet transfe rs? Yes. TRANSFERS: TOILET - STEP 2: Does the patient require the assistance of a helper? Yes. TRANSFERS: TOILET - STEP 3: How much assistance does the patient require from the helper? Patient performs half or more of the tr ansferring tasks TRANSFERS: TOILET - STEP 4: Does the patient need only incidental help such as contact guard or steadying during toilet transfer? Yes. TRANSFERS: TOILET - SCORE: 4-MIN TRANSFERS: SHOWER: Activity did not occur on this shift TRANSFERS: SHOWER - SCORE: 0-UNK TRANSFERS: TUB: Activity did not occur on this shift TRANSFERS: TUB - SCORE: 0-UNK LOCOMOTION: WALK: Activity did not occur on this shift LOCOMOTION: WALK - SCORE: 0-UNK LOCOMOTION: WHEELCHAIR: Activity did not occur on this shift LOCOMOTION: WHEELCHAIR - SCORE: 0-UNK COMPREHENSION: COMPREHENSION - SCORE: 0-UNK EXPRESSION EXPRESSION - SCORE: 0-UNK SOCIAL INTERACTION: SOCIAL INTERACTION - SCORE: 0-UNK PROBLEM SOLVING: PROBLEM SOLVING - SCORE: 0-UNK MEMORY: MEMORY - SCORE: 0-UNK SIGNATURE PANEL: The following modified sections: Eating - Score, Grooming - Score, Bathing - Score, Dressing - Upper Body - Score, Dressing - Lower Body - Score, Toileting - Score, Bladder Management - Score, Bowel Man agement - Score, Transfers: Bed, Chair, Wheelchair - Score, Transfers: Toilet - Score, Transfers: Donna wer - Score, Transfers: Tub - Score, Locomotion: Walk - Score, Locomotion: Wheelchair - Score, Compre hension - Score, Expression - Score, Social Interaction - Score, Problem Solving - Score, Memory - Sc ore were [electronically] signed by Georginaa Turner CNA on MonSep 14 2018 10:11:36 GMT-0600 (Cent[place] Standard Time)
--- NOTE | 2018-09-14 14:44 | FAST ---
ENCOUNTER DATE AND TIME: 09/14/2018 08:00 (SAFETY COUNCIL DIRECTOR) NAME VINCE SANDERS DATE OF : 1945 DATE OF ADMISSION: 09/11/2018 17:29 (SAFETY COUNCIL DIRECTOR) PHONE: AGE: 73 SSN# [id number] GENDER: Female ENCOUNTER PHYSICIAN: Dr. Delmer Gonzalez M.D. ADMISSION DIAGNOSIS: - Orthopaedic Disorders 08 - Unilateral Hip Fracture (08.11) Closed Displaced Midcervical Frcature of Right Femur. EATING: Activity did not occur on this shift EATING - SCORE: 0-UNK GROOMING: Activity did not occur on this shift GROOMING - SCORE: 0-UNK BATHING: Activity did not occur on this shift BATHING - SCORE: 0-UNK DRESSING - UPPER BODY: Activity did not occur on this shift Patient is not dressing in public clothing ARTICLES SCORE Total number of steps: 0 DRESSING - UPPER BODY - SCORE: 0-UNK DRESSING - LOWER BODY: Activity did not occur on this shift Patient is not dressing in public clothing ARTICLES SCORE Total number of steps: 0 DRESSING - LOWER BODY - SCORE: 0-UNK TOILETING: Activity did not occur on this shift TOILETING - SCORE: 0-UNK BLADDER MANAGEMENT: Activity did not occur on this shift BLADDER MANAGEMENT - SCORE: 7-IND BOWEL MANAGEMENT: Activity did not occur on this shift BOWEL MANAGEMENT - SCORE: 7-IND TRANSFERS: BED, CHAIR, WHEELCHAIR: TRANSFERS: BED, CHAIR, WHEELCHAIR - STEP 1: Does the patient require assistance of a person or device, or need extra time with bed, chair, or whe elchair transfers? Yes. TRANSFERS: BED, CHAIR, WHEELCHAIR - STEP 2: Does the patient require the assistance of a helper? Yes. TRANSFERS: BED, CHAIR, WHEELCHAIR - STEP 3: How much assistance does the patient require from the helper? Only supervision TRANSFERS: BED, CHAIR, WHEELCHAIR - SCORE: 5-SUP TRANSFERS: TOILET: Activity did not occur on this shift TRANSFERS: TOILET - SCORE: 0-UNK TRANSFERS: SHOWER: Activity did not occur on this shift TRANSFERS: SHOWER - SCORE: 0-UNK TRANSFERS: TUB: Activity did not occur on this shift TRANSFERS: TUB - SCORE: 0-UNK LOCOMOTION: WALK: LOCOMOTION: WALK - STEP 1: Does the patient need help from a person or device, or need extra time to walk 150 feet? Yes. LOCOMOTION: WALK - STEP 2: How much assistance does the patient require to walk a minimum of 150 feet? Only supervision, cuing, or coaxing LOCOMOTION: WALK - SCORE: 5-SUP LOCOMOTION: WHEELCHAIR: LOCOMOTION: WHEELCHAIR - STEP 1: Does the patient need help to go 150 feet in a wheelchair? Yes. LOCOMOTION: WHEELCHAIR - STEP 2: How much assistance does the patient need from the helper? Only supervision, cuing, or coaxing LOCOMOTION: WHEELCHAIR - SCORE: 5-SUP LOCOMOTION: STAIRS: LOCOMOTION: STAIRS - STEP 1: Does the patient need help to go up and down 12 to 14 stairs? Yes. LOCOMOTION: STAIRS - STEP 2: How much assistance does the patient need from the helper to go a minimum of 12 to 14 stairs? Only mchugh pervision, cuing, or coaxing LOCOMOTION: STAIRS - SCORE: 5-SUP COMPREHENSION: COMPREHENSION - SCORE: 0-UNK EXPRESSION EXPRESSION - SCORE: 0-UNK SOCIAL INTERACTION: SOCIAL INTERACTION - SCORE: 0-UNK PROBLEM SOLVING: PROBLEM SOLVING - SCORE: 0-UNK MEMORY: MEMORY - SCORE: 0-UNK SIGNATURE PANEL: The following modified sections: Transfers: Bed, Chair, Wheelchair - Score, Transfers: Toilet - Score , Locomotion: Walk - Score, Locomotion: Wheelchair - Score, Locomotion: Stairs - Score were [chandu baugh] signed by Grady Brody PTA on MonSep 14 2018 14:43:23 GMT-0600 (Central Standard Time)
[2018-09-14] MEDS: GABAPENTIN 300 MG CAP PO SCH (20:01)
[2018-09-14] MEDS: ATORVASTATIN 10 MG TAB PO SCH (20:02)
[2018-09-14] MEDS: CRANBERRY FRUIT EXTRACT 200 MG CAP PO SCH (20:02)
[2018-09-14] MEDS: PRIMIDONE 50 MG TAB PO SCH (20:02)
[2018-09-14] MEDS: DOCUSATE NA/SENNA CONC 1 TAB PO PRN (20:19)
--- NOTE | 2018-09-15 02:05 | FAST ---
SHIFT START DATE/TIME: 09/14/2018 19:00 (DOMESTIC HELPER) SHIFT END DATE/TIME: 09/15/2018 07:00 (DOMESTIC HELPER) NAME VINCE SANDERS DATE OF : 1945 DATE OF ADMISSION: 09/11/2018 17:29 (DOMESTIC HELPER) PHONE: AGE: 73 SSN# [id number] GENDER: Female ENCOUNTER PHYSICIAN: Dr. Delmer Gonzalez M.D. ADMISSION DIAGNOSIS: - Orthopaedic Disorders 08 - Unilateral Hip Fracture (08.11) Closed Displaced Midcervical Frcature of Right Femur. EATING: Activity did not occur on this shift EATING - SCORE: 0-UNK GROOMING: Oral care Wash, rinse, and dry hands GROOMING - STEP 1: Does the patient require the assistance of a person or device, or need extra time when grooming? Yes. GROOMING - STEP 2: Does the patient require the assistance of a helper? Yes. GROOMING - STEP 3: How much assistance does the patient require from the helper? Only prior equipment preparation/set up from the helper GROOMING - SCORE: 5-SUP BATHING: Activity did not occur on this shift BATHING - SCORE: 0-UNK DRESSING - UPPER BODY: Patient is not dressing in public clothing ARTICLES SCORE Total number of steps: 0 DRESSING - UPPER BODY - SCORE: 0-UNK DRESSING - LOWER BODY: Patient is not dressing in public clothing ARTICLES SCORE Total number of steps: 0 DRESSING - LOWER BODY - SCORE: 0-UNK TOILETING: TOILETING - STEP 1: Does the patient require the assistance of a person or device, or need extra time with toileting? Yes . TOILETING - STEP 2: Does the patient require the assistance of a helper? Yes. TOILETING - STEP 3: How much assistance does the patient require from the helper? Hands-on assistance from the helper TOILETING - STEP 4: Of the 3 tasks: 1) Adjusting clothing prior to use, 2) Cleansing of perineal area, 3) Adjusting clot juana after use; How many tasks does the patient perform WITHOUT assistance of the helper? Three tasks with steadying assistance from the helper TOILETING - SCORE: 4-MIN BLADDER MANAGEMENT: BLADDER MANAGEMENT - STEP 1: Does the patient control the bladder completely and intentionally without equipment or devices or med ications, and is always continent? No. BLADDER MANAGEMENT - STEP 2: Does the patient require the assistance of a helper? No, patient requires and independently uses an a ssistive device, such as a urinal, bedpan, bedside commode, catheter, absorbent pad, or collecting de vice BLADDER MANAGEMENT - SCORE: 6-RASHAWN BOWEL MANAGEMENT: Activity did not occur on this shift BOWEL MANAGEMENT - SCORE: 7-IND TRANSFERS: BED, CHAIR, WHEELCHAIR: TRANSFERS: BED, CHAIR, WHEELCHAIR - STEP 1: Does the patient require assistance of a person or device, or need extra time with bed, chair, or whe elchair transfers? Yes. TRANSFERS: BED, CHAIR, WHEELCHAIR - STEP 2: Does the patient require the assistance of a helper? Yes. TRANSFERS: BED, CHAIR, WHEELCHAIR - STEP 3: How much assistance does the patient require from the helper? Lifting of the legs TRANSFERS: BED, CHAIR, WHEELCHAIR - STEP 4: How many legs does the patient require the helper to lift? both legs TRANSFERS: BED, CHAIR, WHEELCHAIR - SCORE: 3-MOD TRANSFERS: TOILET: TRANSFERS: TOILET - STEP 1: Does the patient require the assistance of a person or device, or need extra time with toilet transfe rs? Yes. TRANSFERS: TOILET - STEP 2: Does the patient require the assistance of a helper? Yes. TRANSFERS: TOILET - STEP 3: How much assistance does the patient require from the helper? Patient performs half or more of the tr ansferring tasks TRANSFERS: TOILET - STEP 4: Does the patient need only incidental help such as contact guard or steadying during toilet transfer? Yes. TRANSFERS: TOILET - SCORE: 4-MIN TRANSFERS: SHOWER: Activity did not occur on this shift TRANSFERS: SHOWER - SCORE: 0-UNK TRANSFERS: TUB: Activity did not occur on this shift TRANSFERS: TUB - SCORE: 0-UNK LOCOMOTION: WALK: Activity did not occur on this shift LOCOMOTION: WALK - SCORE: 0-UNK LOCOMOTION: WHEELCHAIR: Activity did not occur on this shift LOCOMOTION: WHEELCHAIR - SCORE: 0-UNK COMPREHENSION: COMPREHENSION: TYPE: Both COMPREHENSION - STEP 1: Does the patient require help from a person or device, or need extra time to understand complex and a bstract ideas (such as current events, finances, discharge planning, medical issues, relationships, e tc)? No. COMPREHENSION - STEP 2: Does the patient need extra time, require an assistive device (such as glasses for visual comprehensi on or a hearing aid for auditory comprehension) or does s/he have mild difficulty understanding compl ex and abstract information? Yes. COMPREHENSION - SCORE: 6-RASHAWN EXPRESSION EXPRESSION: TYPE: Both EXPRESSION - STEP 1: Does the patient require help from a person or device, or need extra time expressing complex and abst ract ideas (such as current events, finances, discharge planning, medical issues, relationships, etc) ? No. EXPRESSION - STEP 2: Does the patient need extra time, require an assistive device (such as augmentive communication syste m or a communication board), OR does s/he have mild difficulty expressing complex and abstract ideas (including mild dysarthria or mild word-find problems)? Yes. EXPRESSION - SCORE: 6-RASHAWN SOCIAL INTERACTION: SOCIAL INTERACTION - STEP 1: Does the patient require a helper to interact with others in social and therapeutic situations? No. SOCIAL INTERACTION - STEP 2: Does the patient need extra time in social situations, OR does s/he interact with staff, other patien ts, and family members ONLY in structured environments, OR does s/he require medication for social in teraction? Yes, patient needs extra time SOCIAL INTERACTION - SCORE: 6-RASHAWN PROBLEM SOLVING: PROBLEM SOLVING - STEP 1: Does the patient need help from a person or device, or need extra time to solve complex problems such as managing a checking account or confronting interpersonal problems? Yes. PROBLEM SOLVING - STEP 2: Does the patient solve basic routine problems half or more of the time? Yes. PROBLEM SOLVING - STEP 3: How often does the patient need help to solve basic routine problems? Less than 10% of the time PROBLEM SOLVING - SCORE: 5-SUP MEMORY: MEMORY - STEP 1: Does the patient need help from a person or device, or need extra time to remember frequently encount ered people, daily routines, and executing requests? No. MEMORY - STEP 2: Does the patient have slight difficulty recognizing frequently encountered people, daily routines, or executing requests without the need for repetition or using self-initiated or environmental cues to remember? Yes. MEMORY - SCORE: 6-RASHAWN
[2018-09-15] MEDS: LEVOTHYROXINE SOD 0.1 MG TAB PO SCH (05:08)
[2018-09-15] MEDS: HYDROCODONE/APAP 5/325 MG TAB PO PRN ×4 (05:23→16:35)
[2018-09-15] MEDS: ENOXAPARIN 30 MG/0.3 ML SQ SCH (07:26)
[2018-09-15] MEDS: NPH (HUMAN) 100 UNITS/ML INSULIN SQ SCH ×2 (07:26→16:37)
[2018-09-15] MEDS: INSULIN -REGULAR HUMAN 50 UNIT/0.5 ML ML SQ SCH ×4 (07:30→20:04)
[2018-09-15] MEDS: METOPROLOL TAR 25 MG TAB PO SCH ×2 (08:00→19:15)
[2018-09-15] MEDS: DOCOSAHEXANOIC AC/EPA 1000 MG PO SCH ×2 (08:21→19:22)
[2018-09-15] MEDS: CRANBERRY FRUIT EXTRACT 200 MG CAP PO SCH ×2 (08:21→19:23)
[2018-09-15] MEDS: VENLAFAXINE HCL XR 75 MG CAP PO SCH ×2 (08:22→19:21)
[2018-09-15] MEDS: METFORMIN HCL 500 MG TAB PO SCH ×2 (08:23→16:37)
[2018-09-15] MEDS: PIOGLITAZONE 15 MG TAB PO SCH (08:23)
[2018-09-15] MEDS: BUPROPION HCL XL 150 MG TAB PO SCH (08:23)
[2018-09-15] MEDS: DIGOXIN 0.125 MG TABLET PO SCH (08:23)
[2018-09-15] MEDS: FE SULF/FA/VIT B COMP & C TAB PO SCH (08:23)
[2018-09-15] MEDS: CLOPIDOGREL 75 MG TABLET PO SCH (08:24)
[2018-09-15] MEDS: GALANTAMINE 4 MG TAB PO SCH (08:24)
[2018-09-15] MEDS: FERROUS SULFATE 325 MG TAB PO SCH (08:24)
[2018-09-15] MEDS: ASPIRIN EC 81 MG TAB PO SCH (08:24)
[2018-09-15] MEDS: SPIRONOLACTONE 25 MG TABLET PO SCH (08:24)
[2018-09-15] MEDS: MULTIVITAMIN TAB PO SCH (08:24)
[2018-09-15] MEDS: BUMETANIDE 1 MG TABLET PO SCH (08:24)
[2018-09-15] MEDS: PROMOD 30 ML DOSE PO SCH ×2 (08:25→19:21)
[2018-09-15] MEDS: TRAMADOL HCL 50 MG TAB PO PRN ×2 (11:24→19:21)
--- NOTE | 2018-09-15 14:19 | FAST ---
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 Delmer Gonzalez M.D. ADMISSION DIAGNOSIS: - Orthopaedic Disorders 08 - Unilateral Hip Fracture (08.11) Closed Displaced Midcervical Frcature of Right Femur. EATING: Activity did not occur on this shift EATING - SCORE: 0-UNK GROOMING: Wash, rinse, and dry hands GROOMING - STEP 1: Does the patient require the assistance of a person or device, or need extra time when grooming? No. GROOMING - SCORE: 7-IND BATHING: Activity did not occur on this shift BATHING - SCORE: 0-UNK DRESSING - UPPER BODY: Activity did not occur on this shift ARTICLES SCORE Total number of steps: 0 DRESSING - UPPER BODY - SCORE: 0-UNK DRESSING - LOWER BODY: Slip-on shoe - Left foot (one step) Slip-on shoe - Right foot (one step) ARTICLES SCORE Total number of steps: 2 DRESSING - LOWER BODY - STEP 1: Does the patient require help from a person or device, or need extra time when dressing below the breanne st? Yes. DRESSING - LOWER BODY - STEP 2: Does the patient require the assistance of a helper? Yes. DRESSING - LOWER BODY - STEP 3: Does the helper touch the patient while dressing? No. DRESSING - LOWER BODY - SCORE: 5-SUP TOILETING: TOILETING - STEP 1: Does the patient require the assistance of a person or device, or need extra time with toileting? Yes . TOILETING - STEP 2: Does the patient require the assistance of a helper? Yes. TOILETING - STEP 3: How much assistance does the patient require from the helper? Only supervision TOILETING - SCORE: 5-SUP BLADDER MANAGEMENT: Activity did not occur on this shift BLADDER MANAGEMENT - SCORE: 7-IND BOWEL MANAGEMENT: Activity did not occur on this shift BOWEL MANAGEMENT - SCORE: 7-IND TRANSFERS: BED, CHAIR, WHEELCHAIR: Activity did not occur on this shift TRANSFERS: BED, CHAIR, WHEELCHAIR - SCORE: 0-UNK TRANSFERS: TOILET: TRANSFERS: TOILET - STEP 1: Does the patient require the assistance of a person or device, or need extra time with toilet transfe rs? Yes. TRANSFERS: TOILET - STEP 2: Does the patient require the assistance of a helper? Yes. TRANSFERS: TOILET - STEP 3: How much assistance does the patient require from the helper? Only supervision, cuing, coaxing, OR he lp to set out transfer equipment or to lock brakes and/or lift foot rests TRANSFERS: TOILET - SCORE: 5-SUP TRANSFERS: SHOWER: Activity did not occur on this shift TRANSFERS: SHOWER - SCORE: 0-UNK TRANSFERS: TUB: Activity did not occur on this shift TRANSFERS: TUB - SCORE: 0-UNK LOCOMOTION: WALK: Activity did not occur on this shift LOCOMOTION: WALK - SCORE: 0-UNK LOCOMOTION: WHEELCHAIR: Activity did not occur on this shift LOCOMOTION: WHEELCHAIR - SCORE: 0-UNK LOCOMOTION: STAIRS: Activity did not occur on this shift LOCOMOTION: STAIRS - SCORE: 0-UNK COMPREHENSION: COMPREHENSION: TYPE: Both COMPREHENSION - STEP 1: Does the patient require help from a person or device, or need extra time to understand complex and a bstract ideas (such as current events, finances, discharge planning, medical issues, relationships, e tc)? No. COMPREHENSION - STEP 2: Does the patient need extra time, require an assistive device (such as glasses for visual comprehensi on or a hearing aid for auditory comprehension) or does s/he have mild difficulty understanding compl ex and abstract information? Yes. COMPREHENSION - SCORE: 6-RASHAWN EXPRESSION EXPRESSION: TYPE: Vocal EXPRESSION - STEP 1: Does the patient require help from a person or device, or need extra time expressing complex and abst ract ideas (such as current events, finances, discharge planning, medical issues, relationships, etc) ? No. EXPRESSION - STEP 2: Does the patient need extra time, require an assistive device (such as augmentive communication syste m or a communication board), OR does s/he have mild difficulty expressing complex and abstract ideas (including mild dysarthria or mild word-find problems)? Yes. EXPRESSION - SCORE: 6-RASHAWN SOCIAL INTERACTION: SOCIAL INTERACTION - STEP 1: Does the patient require a helper to interact with others in social and therapeutic situations? No. SOCIAL INTERACTION - STEP 2: Does the patient need extra time in social situations, OR does s/he interact with staff, other patien ts, and family members ONLY in structured environments, OR does s/he require medication for social in teraction? No. SOCIAL INTERACTION - SCORE: 7-IND PROBLEM SOLVING: PROBLEM SOLVING - STEP 1: Does the patient need help from a person or device, or need extra time to solve complex problems such as managing a checking account or confronting interpersonal problems? Yes. PROBLEM SOLVING - STEP 2: Does the patient solve basic routine problems half or more of the time? Yes. PROBLEM SOLVING - STEP 3: How often does the patient need help to solve basic routine problems? Less than 10% of the time PROBLEM SOLVING - SCORE: 5-SUP MEMORY: MEMORY - STEP 1: Does the patient need help from a person or device, or need extra time to remember frequently encount ered people, daily routines, and executing requests? Yes. MEMORY - STEP 2: How often does the patient need help to remember frequently encountered people, daily routines, and e xecuting requests? Less than 10% of the time MEMORY - SCORE: 5-SUP SIGNATURE PANEL: The following modified sections: Eating - Score, Grooming - Score, Bathing - Score, Dressing - Upper Body - Score, Dressing - Lower Body - Score, Toileting - Score, Transfers: Bed, Chair, Wheelchair - S core, Transfers: Toilet - Score, Transfers: Shower - Score, Transfers: Tub - Score, Comprehension - S core, Expression - Score, Social Interaction - Score, Problem Solving - Score, Memory - Score were [e lectronically] signed by Cierra Martins OT on Sat Sep 15 2018 14:18:59 GMT-0600 ([facility])
--- NOTE | 2018-09-15 16:34 | FAST ---
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 Delmer Gonzalez M.D. ADMISSION DIAGNOSIS: - Orthopaedic Disorders 08 - Unilateral Hip Fracture (08.11) Closed Displaced Midcervical Frcature of Right Femur. EATING: EATING - STEP 1: Does the patient require the assistance of a person or device, or need extra time when eating? Yes. EATING - STEP 2: Does the patient require the assistance of a helper? Yes. EATING - STEP 3: Does the patient perform half or more of the eating tasks? Yes. EATING - STEP 4: Does the patient need only supervision, cuing, coaxing OR help to apply an orthosis OR help to cut fo od, open containers, pour liquids, or butter bread? Yes. EATING - SCORE: 5-SUP GROOMING: Comb/brush hair Oral care Wash, rinse, and dry face Wash, rinse, and dry hands GROOMING - STEP 1: Does the patient require the assistance of a person or device, or need extra time when grooming? Yes. GROOMING - STEP 2: Does the patient require the assistance of a helper? Yes. GROOMING - STEP 3: How much assistance does the patient require from the helper? Only prior equipment preparation/set up from the helper GROOMING - SCORE: 5-SUP BATHING: Activity did not occur on this shift BATHING - SCORE: 0-UNK DRESSING - UPPER BODY: Bra (three steps) T-shirt/pullover shirt (four steps) ARTICLES SCORE Total number of steps: 7 DRESSING - UPPER BODY - STEP 1: Does the patient require help from a person or device, or need extra time when dressing above the breanne st? Yes. DRESSING - UPPER BODY - STEP 2: Does the patient require the assistance of a helper? Yes. DRESSING - UPPER BODY - STEP 3: Does the helper touch the patient while dressing? Yes. DRESSING - UPPER BODY - STEP 4: How many of the total steps does the patient complete on his/her own? 7 DRESSING - UPPER BODY - SCORE: 4-MIN DRESSING - LOWER BODY: ARTICLES SCORE Total number of steps: 8 DRESSING - LOWER BODY - STEP 1: Does the patient require help from a person or device, or need extra time when dressing below the breanne st? Yes. DRESSING - LOWER BODY - STEP 2: Does the patient require the assistance of a helper? Yes. DRESSING - LOWER BODY - STEP 3: Does the helper touch the patient while dressing? Yes. DRESSING - LOWER BODY - STEP 4: How many of the total steps does the patient complete on his/her own? 6 DRESSING - LOWER BODY - SCORE: 4-MIN TOILETING: TOILETING - STEP 1: Does the patient require the assistance of a person or device, or need extra time with toileting? Yes . TOILETING - STEP 2: Does the patient require the assistance of a helper? Yes. TOILETING - STEP 3: How much assistance does the patient require from the helper? Only supervision TOILETING - SCORE: 5-SUP BLADDER MANAGEMENT: BLADDER MANAGEMENT - STEP 1: Does the patient control the bladder completely and intentionally without equipment or devices or med ications, and is always continent? No. BLADDER MANAGEMENT - STEP 2: Does the patient require the assistance of a helper? Yes. BLADDER MANAGEMENT - STEP 3: How much assistance does the patient require from the helper? Only supervision, stand-by, cuing, or c oaxing BLADDER MANAGEMENT - SCORE: 5-SUP BOWEL MANAGEMENT: Activity did not occur on this shift BOWEL MANAGEMENT - SCORE: 7-IND TRANSFERS: BED, CHAIR, WHEELCHAIR: TRANSFERS: BED, CHAIR, WHEELCHAIR - STEP 1: Does the patient require assistance of a person or device, or need extra time with bed, chair, or whe elchair transfers? Yes. TRANSFERS: BED, CHAIR, WHEELCHAIR - STEP 2: Does the patient require the assistance of a helper? Yes. TRANSFERS: BED, CHAIR, WHEELCHAIR - STEP 3: How much assistance does the patient require from the helper? Steadying/guiding assistance TRANSFERS: BED, CHAIR, WHEELCHAIR - SCORE: 4-MIN TRANSFERS: TOILET: TRANSFERS: TOILET - STEP 1: Does the patient require the assistance of a person or device, or need extra time with toilet transfe rs? Yes. TRANSFERS: TOILET - STEP 2: Does the patient require the assistance of a helper? Yes. TRANSFERS: TOILET - STEP 3: How much assistance does the patient require from the helper? Patient performs half or more of the tr ansferring tasks TRANSFERS: TOILET - STEP 4: Does the patient need only incidental help such as contact guard or steadying during toilet transfer? Yes. TRANSFERS: TOILET - SCORE: 4-MIN TRANSFERS: SHOWER: Activity did not occur on this shift TRANSFERS: SHOWER - SCORE: 0-UNK TRANSFERS: TUB: Activity did not occur on this shift TRANSFERS: TUB - SCORE: 0-UNK LOCOMOTION: WALK: Activity did not occur on this shift LOCOMOTION: WALK - SCORE: 0-UNK LOCOMOTION: WHEELCHAIR: Activity did not occur on this shift LOCOMOTION: WHEELCHAIR - SCORE: 0-UNK COMPREHENSION: COMPREHENSION: TYPE: Both COMPREHENSION - STEP 1: Does the patient require help from a person or device, or need extra time to understand complex and a bstract ideas (such as current events, finances, discharge planning, medical issues, relationships, e tc)? No. COMPREHENSION - STEP 2: Does the patient need extra time, require an assistive device (such as glasses for visual comprehensi on or a hearing aid for auditory comprehension) or does s/he have mild difficulty understanding compl ex and abstract information? Yes. COMPREHENSION - SCORE: 6-RASHAWN EXPRESSION EXPRESSION: TYPE: Both EXPRESSION - STEP 1: Does the patient require help from a person or device, or need extra time expressing complex and abst ract ideas (such as current events, finances, discharge planning, medical issues, relationships, etc) ? No. EXPRESSION - STEP 2: Does the patient need extra time, require an assistive device (such as augmentive communication syste m or a communication board), OR does s/he have mild difficulty expressing complex and abstract ideas (including mild dysarthria or mild word-find problems)? Yes. EXPRESSION - SCORE: 6-RASHAWN SOCIAL INTERACTION: SOCIAL INTERACTION - STEP 1: Does the patient require a helper to interact with others in social and therapeutic situations? No. SOCIAL INTERACTION - STEP 2: Does the patient need extra time in social situations, OR does s/he interact with staff, other patien ts, and family members ONLY in structured environments, OR does s/he require medication for social in teraction? Yes, patient needs extra time SOCIAL INTERACTION - SCORE: 6-RASHAWN PROBLEM SOLVING: PROBLEM SOLVING - STEP 1: Does the patient need help from a person or device, or need extra time to solve complex problems such as managing a checking account or confronting interpersonal problems? No. PROBLEM SOLVING - STEP 2: Does the patient require extra time to make decisions or solve problems, OR does s/he have slight dif ficulty reading, initiating, or self-correcting in unfamiliar situations? Yes, patient needs extra ti me. PROBLEM SOLVING - SCORE: 6-RASHAWN MEMORY: MEMORY - STEP 1: Does the patient need help from a person or device, or need extra time to remember frequently encount ered people, daily routines, and executing requests? No. MEMORY - STEP 2: Does the patient have slight difficulty recognizing frequently encountered people, daily routines, or executing requests without the need for repetition or using self-initiated or environmental cues to remember? Yes. MEMORY - SCORE: 6-RASHAWN SIGNATURE PANEL: The following modified sections: Eating - Score, Grooming - Score, Bathing - Score, Dressing - Upper Body - Score, Dressing - Lower Body - Score, Toileting - Score, Bladder Management - Score, Bowel Man agement - Score, Transfers: Bed, Chair, Wheelchair - Score, Transfers: Toilet - Score, Transfers: Donna wer - Score, Transfers: Tub - Score, Locomotion: Walk - Score, Locomotion: Wheelchair - Score, Compre hension - Score, Expression - Score, Social Interaction - Score, Problem Solving - Score, Memory - Sc ore were [electronically] signed by Elmer Dias on Sat Sep 15 2018 16:33:47 GMT-0600 (Central Standard Time)
[2018-09-15 16:43] LABS: Urine Appearance CLEAR; Urine Bilirubin NEGATIVE (NEG); Urine Blood NEGATIVE (NEG); Urine Color YELLOW; Urine Glucose NEGATIVE (NEG); Urine Protein NEGATIVE (NEG); Urine Specific Gravity <=1.005 (1.005-1.030); Urine Urobilinogen 0.2 mg/dL (0.2-1.0); Urine pH 6.5 (5.0-7.0)
[2018-09-15 16:45] LABS: Urine Microscopic Reflex ORDER UMIC
[2018-09-15 16:59] LABS: Urine Bacteria 20-50 /HPF (<20); Urine RBC NONE SEEN /HPF (NONE SEEN)
[2018-09-15 17:00] LABS: Urine Culture Reflex Order NOT NEEDED
[2018-09-15] MEDS: DOCUSATE NA/SENNA CONC 1 TAB PO PRN (19:21)
[2018-09-15] MEDS: CIPROFLOXACIN HCL 500 MG TAB PO SCH (19:22)
[2018-09-15] MEDS: ATORVASTATIN 10 MG TAB PO SCH (20:17)
[2018-09-15] MEDS: PRIMIDONE 50 MG TAB PO SCH (20:17)
[2018-09-15] MEDS: GABAPENTIN 300 MG CAP PO SCH (20:17)
--- NOTE | 2018-09-16 01:37 | FAST ---
SHIFT START DATE/TIME: 09/15/2018 19:00 (NUCLEAR FUEL PROCESSING TECHNICIAN) SHIFT END DATE/TIME: 09/16/2018 07:00 (NUCLEAR FUEL PROCESSING TECHNICIAN) NAME VINCE SANDERS DATE OF : 1945 DATE OF ADMISSION: 09/11/2018 17:29 (NUCLEAR FUEL PROCESSING TECHNICIAN) PHONE: AGE: 73 SSN# [id number] GENDER: Female ENCOUNTER PHYSICIAN: Dr. Delmer Gonzalez M.D. ADMISSION DIAGNOSIS: - Orthopaedic Disorders 08 - Unilateral Hip Fracture (08.11) Closed Displaced Midcervical Frcature of Right Femur. EATING: Activity did not occur on this shift EATING - SCORE: 0-UNK GROOMING: Activity did not occur on this shift GROOMING - SCORE: 0-UNK BATHING: Activity did not occur on this shift BATHING - SCORE: 0-UNK DRESSING - UPPER BODY: Patient is not dressing in public clothing ARTICLES SCORE Total number of steps: 0 DRESSING - UPPER BODY - SCORE: 0-UNK DRESSING - LOWER BODY: Patient is not dressing in public clothing ARTICLES SCORE Total number of steps: 0 DRESSING - LOWER BODY - SCORE: 0-UNK TOILETING: TOILETING - STEP 1: Does the patient require the assistance of a person or device, or need extra time with toileting? Yes . TOILETING - STEP 2: Does the patient require the assistance of a helper? Yes. TOILETING - STEP 3: How much assistance does the patient require from the helper? Hands-on assistance from the helper TOILETING - STEP 4: Of the 3 tasks: 1) Adjusting clothing prior to use, 2) Cleansing of perineal area, 3) Adjusting clot juana after use; How many tasks does the patient perform WITHOUT assistance of the helper? Three tasks with steadying assistance from the helper TOILETING - SCORE: 4-MIN BLADDER MANAGEMENT: BLADDER MANAGEMENT - STEP 1: Does the patient control the bladder completely and intentionally without equipment or devices or med ications, and is always continent? No. BLADDER MANAGEMENT - STEP 2: Does the patient require the assistance of a helper? Yes. BLADDER MANAGEMENT - STEP 3: How much assistance does the patient require from the helper? Patient requires contact assistance fro m the helper BLADDER MANAGEMENT - STEP 4: How much contact assistance does the patient require from the helper? Patient requires moderate joselito tance, and performs 50% to 75% of bladder management tasks - [place] positions AND holds urinal or bed hicks BLADDER MANAGEMENT - SCORE: 3-MOD BLADDER MANAGEMENT - FREQUENCY OF ACCIDENTS: BLADDER MANAGEMENT(FA) - STEP 1: How many accidents has the patient had during the current shift? 1 BOWEL MANAGEMENT: Activity did not occur on this shift BOWEL MANAGEMENT - SCORE: 7-IND TRANSFERS: BED, CHAIR, WHEELCHAIR: TRANSFERS: BED, CHAIR, WHEELCHAIR - STEP 1: Does the patient require assistance of a person or device, or need extra time with bed, chair, or whe elchair transfers? Yes. TRANSFERS: BED, CHAIR, WHEELCHAIR - STEP 2: Does the patient require the assistance of a helper? Yes. TRANSFERS: BED, CHAIR, WHEELCHAIR - STEP 3: How much assistance does the patient require from the helper? Lifting of the legs TRANSFERS: BED, CHAIR, WHEELCHAIR - STEP 4: How many legs does the patient require the helper to lift? both legs TRANSFERS: BED, CHAIR, WHEELCHAIR - SCORE: 3-MOD TRANSFERS: TOILET: TRANSFERS: TOILET - STEP 1: Does the patient require the assistance of a person or device, or need extra time with toilet transfe rs? Yes. TRANSFERS: TOILET - STEP 2: Does the patient require the assistance of a helper? Yes. TRANSFERS: TOILET - STEP 3: How much assistance does the patient require from the helper? Patient performs half or more of the tr ansferring tasks TRANSFERS: TOILET - STEP 4: Does the patient need only incidental help such as contact guard or steadying during toilet transfer? Yes. TRANSFERS: TOILET - SCORE: 4-MIN TRANSFERS: SHOWER: Activity did not occur on this shift TRANSFERS: SHOWER - SCORE: 0-UNK TRANSFERS: TUB: Activity did not occur on this shift TRANSFERS: TUB - SCORE: 0-UNK LOCOMOTION: WALK: Activity did not occur on this shift LOCOMOTION: WALK - SCORE: 0-UNK LOCOMOTION: WHEELCHAIR: Activity did not occur on this shift LOCOMOTION: WHEELCHAIR - SCORE: 0-UNK COMPREHENSION: COMPREHENSION: TYPE: Both COMPREHENSION - STEP 1: Does the patient require help from a person or device, or need extra time to understand complex and a bstract ideas (such as current events, finances, discharge planning, medical issues, relationships, e tc)? No. COMPREHENSION - STEP 2: Does the patient need extra time, require an assistive device (such as glasses for visual comprehensi on or a hearing aid for auditory comprehension) or does s/he have mild difficulty understanding compl ex and abstract information? Yes. COMPREHENSION - SCORE: 6-RASHAWN EXPRESSION EXPRESSION: TYPE: Both EXPRESSION - STEP 1: Does the patient require help from a person or device, or need extra time expressing complex and abst ract ideas (such as current events, finances, discharge planning, medical issues, relationships, etc) ? No. EXPRESSION - STEP 2: Does the patient need extra time, require an assistive device (such as augmentive communication syste m or a communication board), OR does s/he have mild difficulty expressing complex and abstract ideas (including mild dysarthria or mild word-find problems)? No. EXPRESSION - SCORE: 7-IND SOCIAL INTERACTION: SOCIAL INTERACTION - STEP 1: Does the patient require a helper to interact with others in social and therapeutic situations? No. SOCIAL INTERACTION - STEP 2: Does the patient need extra time in social situations, OR does s/he interact with staff, other patien ts, and family members ONLY in structured environments, OR does s/he require medication for social in teraction? Yes, patient needs extra time SOCIAL INTERACTION - SCORE: 6-RASHAWN PROBLEM SOLVING: PROBLEM SOLVING - STEP 1: Does the patient need help from a person or device, or need extra time to solve complex problems such as managing a checking account or confronting interpersonal problems? No. PROBLEM SOLVING - STEP 2: Does the patient require extra time to make decisions or solve problems, OR does s/he have slight dif ficulty reading, initiating, or self-correcting in unfamiliar situations? Yes, patient needs extra ti me. PROBLEM SOLVING - SCORE: 6-RASHAWN MEMORY: MEMORY - STEP 1: Does the patient need help from a person or device, or need extra time to remember frequently encount ered people, daily routines, and executing requests? No. MEMORY - STEP 2: Does the patient have slight difficulty recognizing frequently encountered people, daily routines, or executing requests without the need for repetition or using self-initiated or environmental cues to remember? No. MEMORY - SCORE: 7-IND SIGNATURE PANEL: The following modified sections: Eating - Score, Grooming - Score, Bathing - Score, Dressing - Upper Body - Score, Dressing - Lower Body - Score, Toileting - Score, Bladder Management - Score, Bowel Man agement - Score, Transfers: Bed, Chair, Wheelchair - Score, Transfers: Toilet - Score, Transfers: Donna wer - Score, Transfers: Tub - Score, Locomotion: Walk - Score, Locomotion: Wheelchair - Score, Compre hension - Score, Expression - Score, Social Interaction - Score, Problem Solving - Score, Memory - Sc ore were [electronically] signed by Diana Ernst CNA on MonSep 16 2018 01:20:28 [facility]-[id number] ([facility])
[2018-09-16] MEDS: LEVOTHYROXINE SOD 0.1 MG TAB PO SCH (05:06)
[2018-09-16] MEDS: INSULIN -REGULAR HUMAN 50 UNIT/0.5 ML ML SQ SCH ×4 (07:30→20:13)
[2018-09-16] MEDS: ENOXAPARIN 30 MG/0.3 ML SQ SCH (08:09)
[2018-09-16] MEDS: DOCOSAHEXANOIC AC/EPA 1000 MG PO SCH ×2 (08:10→19:03)
[2018-09-16] MEDS: SPIRONOLACTONE 25 MG TABLET PO SCH (08:10)
[2018-09-16] MEDS: PROMOD 30 ML DOSE PO SCH ×2 (08:10→19:02)
[2018-09-16] MEDS: VENLAFAXINE HCL XR 75 MG CAP PO SCH ×2 (08:11→19:03)
[2018-09-16] MEDS: CRANBERRY FRUIT EXTRACT 200 MG CAP PO SCH ×2 (08:11→19:03)
[2018-09-16] MEDS: METFORMIN HCL 500 MG TAB PO SCH ×2 (08:11→17:15)
[2018-09-16] MEDS: FERROUS SULFATE 325 MG TAB PO SCH (08:11)
[2018-09-16] MEDS: BUMETANIDE 1 MG TABLET PO SCH (08:12)
[2018-09-16] MEDS: PIOGLITAZONE 15 MG TAB PO SCH (08:12)
[2018-09-16] MEDS: METOPROLOL TAR 25 MG TAB PO SCH ×2 (08:12→19:03)
[2018-09-16] MEDS: DIGOXIN 0.125 MG TABLET PO SCH (08:12)
[2018-09-16] MEDS: CIPROFLOXACIN HCL 500 MG TAB PO SCH ×2 (08:13→19:03)
[2018-09-16] MEDS: ASPIRIN EC 81 MG TAB PO SCH (08:13)
[2018-09-16] MEDS: MULTIVITAMIN TAB PO SCH (08:13)
[2018-09-16] MEDS: GALANTAMINE 4 MG TAB PO SCH (08:17)
[2018-09-16] MEDS: CLOPIDOGREL 75 MG TABLET PO SCH (08:18)
[2018-09-16] MEDS: FE SULF/FA/VIT B COMP & C TAB PO SCH (08:18)
[2018-09-16] MEDS: BUPROPION HCL XL 150 MG TAB PO SCH (08:18)
[2018-09-16] MEDS: NPH (HUMAN) 100 UNITS/ML INSULIN SQ SCH ×2 (09:13→17:32)
[2018-09-16] MEDS: HYDROCODONE/APAP 5/325 MG TAB PO PRN ×2 (11:33→19:00)
--- NOTE | 2018-09-16 13:24 | FAST ---
SHIFT START DATE/TIME: 09/16/2018 07:00 (CATTLE FARMER) SHIFT END DATE/TIME: 09/16/2018 19:00 (CATTLE FARMER) NAME VINCE SANDERS DATE OF : 1945 DATE OF ADMISSION: 09/11/2018 17:29 (CATTLE FARMER) PHONE: AGE: 73 SSN# [id number] GENDER: Female ENCOUNTER PHYSICIAN: Dr. Delmer Gonzalez M.D. ADMISSION DIAGNOSIS: - Orthopaedic Disorders 08 - Unilateral Hip Fracture (08.11) Closed Displaced Midcervical Frcature of Right Femur. EATING: EATING - STEP 1: Does the patient require the assistance of a person or device, or need extra time when eating? Yes. EATING - STEP 2: Does the patient require the assistance of a helper? Yes. EATING - STEP 3: Does the patient perform half or more of the eating tasks? Yes. EATING - STEP 4: Does the patient need only supervision, cuing, coaxing OR help to apply an orthosis OR help to cut fo od, open containers, pour liquids, or butter bread? Yes. EATING - SCORE: 5-SUP GROOMING: Comb/brush hair Oral care GROOMING - STEP 1: Does the patient require the assistance of a person or device, or need extra time when grooming? No. GROOMING - SCORE: 7-IND BATHING: Activity did not occur on this shift BATHING - SCORE: 0-UNK DRESSING - UPPER BODY: T-shirt/pullover shirt (four steps) ARTICLES SCORE Total number of steps: 4 DRESSING - UPPER BODY - STEP 1: Does the patient require help from a person or device, or need extra time when dressing above the bre[address] st? Yes. DRESSING - UPPER BODY - STEP 2: Does the patient require the assistance of a helper? Yes. DRESSING - UPPER BODY - STEP 3: Does the helper touch the patient while dressing? No. DRESSING - UPPER BODY - SCORE: 5-SUP DRESSING - LOWER BODY: ARTICLES SCORE Total number of steps: 3 DRESSING - LOWER BODY - STEP 1: Does the patient require help from a person or device, or need extra time when dressing below the bre[address] st? Yes. DRESSING - LOWER BODY - STEP 2: Does the patient require the assistance of a helper? Yes. DRESSING - LOWER BODY - STEP 3: Does the helper touch the patient while dressing? Yes. DRESSING - LOWER BODY - STEP 4: How many of the total steps does the patient complete on his/her own? 2 DRESSING - LOWER BODY - SCORE: 3-MOD TOILETING: TOILETING - STEP 1: Does the patient require the assistance of a person or device, or need extra time with toileting? Yes . TOILETING - STEP 2: Does the patient require the assistance of a helper? Yes. TOILETING - STEP 3: How much assistance does the patient require from the helper? Only supervision TOILETING - SCORE: 5-SUP BLADDER MANAGEMENT: BLADDER MANAGEMENT - STEP 1: Does the patient control the bladder completely and intentionally without equipment or devices or med ications, and is always continent? No. BLADDER MANAGEMENT - STEP 2: Does the patient require the assistance of a helper? No, patient requires and independently uses an a ssistive device, such as a urinal, bedpan, bedside commode, catheter, absorbent pad, or collecting de vice BLADDER MANAGEMENT - SCORE: 6-RASHAWN BLADDER MANAGEMENT - FREQUENCY OF ACCIDENTS: BLADDER MANAGEMENT(FA) - STEP 1: How many accidents has the patient had during the current shift? 2 BOWEL MANAGEMENT: BOWEL MANAGEMENT - STEP 1: Does the patient control bowels completely and intentionally without equipment devices or medications AND is always continent? No. BOWEL MANAGEMENT - STEP 2: Does the patient require the assistance of a helper? No, patient requires and manages independently a n assistive device such as a bedpan, bedside commode, absorbent pad, incontinent device, or collectin g device BOWEL MANAGEMENT - SCORE: 6-RASHAWN TRANSFERS: BED, CHAIR, WHEELCHAIR: TRANSFERS: BED, CHAIR, WHEELCHAIR - STEP 1: Does the patient require assistance of a person or device, or need extra time with bed, chair, or whe elchair transfers? Yes. TRANSFERS: BED, CHAIR, WHEELCHAIR - STEP 2: Does the patient require the assistance of a helper? Yes. TRANSFERS: BED, CHAIR, WHEELCHAIR - STEP 3: How much assistance does the patient require from the helper? Steadying/guiding assistance TRANSFERS: BED, CHAIR, WHEELCHAIR - SCORE: 4-MIN TRANSFERS: TOILET: TRANSFERS: TOILET - STEP 1: Does the patient require the assistance of a person or device, or need extra time with toilet transfe rs? Yes. TRANSFERS: TOILET - STEP 2: Does the patient require the assistance of a helper? Yes. TRANSFERS: TOILET - STEP 3: How much assistance does the patient require from the helper? Patient performs half or more of the tr ansferring tasks TRANSFERS: TOILET - STEP 4: Does the patient need only incidental help such as contact guard or steadying during toilet transfer? Yes. TRANSFERS: TOILET - SCORE: 4-MIN TRANSFERS: SHOWER: Activity did not occur on this shift TRANSFERS: SHOWER - SCORE: 0-UNK TRANSFERS: TUB: Activity did not occur on this shift TRANSFERS: TUB - SCORE: 0-UNK LOCOMOTION: WALK: Activity did not occur on this shift LOCOMOTION: WALK - SCORE: 0-UNK LOCOMOTION: WHEELCHAIR: Activity did not occur on this shift LOCOMOTION: WHEELCHAIR - SCORE: 0-UNK COMPREHENSION: COMPREHENSION: TYPE: Both COMPREHENSION - STEP 1: Does the patient require help from a person or device, or need extra time to understand complex and a bstract ideas (such as current events, finances, discharge planning, medical issues, relationships, e tc)? No. COMPREHENSION - STEP 2: Does the patient need extra time, require an assistive device (such as glasses for visual comprehensi on or a hearing aid for auditory comprehension) or does s/he have mild difficulty understanding compl ex and abstract information? Yes. COMPREHENSION - SCORE: 6-RASHAWN EXPRESSION EXPRESSION: TYPE: Both EXPRESSION - STEP 1: Does the patient require help from a person or device, or need extra time expressing complex and abst ract ideas (such as current events, finances, discharge planning, medical issues, relationships, etc) ? No. EXPRESSION - STEP 2: Does the patient need extra time, require an assistive device (such as augmentive communication syste m or a communication board), OR does s/he have mild difficulty expressing complex and abstract ideas (including mild dysarthria or mild word-find problems)? Yes. EXPRESSION - SCORE: 6-RASHAWN SOCIAL INTERACTION: SOCIAL INTERACTION - STEP 1: Does the patient require a helper to interact with others in social and therapeutic situations? No. SOCIAL INTERACTION - STEP 2: Does the patient need extra time in social situations, OR does s/he interact with staff, other patien ts, and family members ONLY in structured environments, OR does s/he require medication for social in teraction? Yes, patient needs extra time SOCIAL INTERACTION - SCORE: 6-RASHAWN PROBLEM SOLVING: PROBLEM SOLVING - STEP 1: Does the patient need help from a person or device, or need extra time to solve complex problems such as managing a checking account or confronting interpersonal problems? Yes. PROBLEM SOLVING - STEP 2: Does the patient solve basic routine problems half or more of the time? Yes. PROBLEM SOLVING - STEP 3: How often does the patient need help to solve basic routine problems? Less than 10% of the time PROBLEM SOLVING - SCORE: 5-SUP MEMORY: MEMORY - STEP 1: Does the patient need help from a person or device, or need extra time to remember frequently encount ered people, daily routines, and executing requests? Yes. MEMORY - STEP 2: How often does the patient need help to remember frequently encountered people, daily routines, and e xecuting requests? Less than 10% of the time MEMORY - SCORE: 5-SUP SIGNATURE PANEL: The following modified sections: Eating - Score, Grooming - Score, Bathing - Score, Dressing - Upper Body - Score, Dressing - Lower Body - Score, Toileting - Score, Bladder Management - Score, Bowel Man agement - Score, Transfers: Bed, Chair, Wheelchair - Score, Transfers: Toilet - Score, Transfers: Donna wer - Score, Transfers: Tub - Score, Locomotion: Walk - Score, Locomotion: Wheelchair - Score, Compre hension - Score, Expression - Score, Social Interaction - Score, Problem Solving - Score, Memory - Sc ore were [electronically] signed by Elmer Dias on MonSep 16 2018 13:23:43 GMT-0600 (Central Standard Time)
[2018-09-16] MEDS: ATORVASTATIN 10 MG TAB PO SCH (20:15)
[2018-09-16] MEDS: PRIMIDONE 50 MG TAB PO SCH (20:15)
[2018-09-16] MEDS: GABAPENTIN 300 MG CAP PO SCH (20:15)
--- NOTE | 2018-09-17 01:30 | FAST ---
SHIFT START DATE/TIME: 09/16/2018 19:00 (HEMODIALYSIS LAB TECHNICIAN) SHIFT END DATE/TIME: 09/17/2018 07:00 (HEMODIALYSIS LAB TECHNICIAN) NAME VINCE SANDERS DATE OF : 1945 DATE OF ADMISSION: 09/11/2018 17:29 (HEMODIALYSIS LAB TECHNICIAN) PHONE: AGE: 73 SSN# [id number] GENDER: Female ENCOUNTER PHYSICIAN: Dr. Delmer Gonzalez M.D. ADMISSION DIAGNOSIS: - Orthopaedic Disorders 08 - Unilateral Hip Fracture (08.11) Closed Displaced Midcervical Frcature of Right Femur. EATING: Activity did not occur on this shift EATING - SCORE: 0-UNK GROOMING: Activity did not occur on this shift GROOMING - SCORE: 0-UNK BATHING: Activity did not occur on this shift BATHING - SCORE: 0-UNK DRESSING - UPPER BODY: Patient is not dressing in public clothing ARTICLES SCORE Total number of steps: 0 DRESSING - UPPER BODY - SCORE: 0-UNK DRESSING - LOWER BODY: Patient is not dressing in public clothing ARTICLES SCORE Total number of steps: 0 DRESSING - LOWER BODY - SCORE: 0-UNK TOILETING: TOILETING - STEP 1: Does the patient require the assistance of a person or device, or need extra time with toileting? Yes . TOILETING - STEP 2: Does the patient require the assistance of a helper? Yes. TOILETING - STEP 3: How much assistance does the patient require from the helper? Hands-on assistance from the helper TOILETING - STEP 4: Of the 3 tasks: 1) Adjusting clothing prior to use, 2) Cleansing of perineal area, 3) Adjusting clot juana after use; How many tasks does the patient perform WITHOUT assistance of the helper? Three tasks with steadying assistance from the helper TOILETING - SCORE: 4-MIN BLADDER MANAGEMENT: BLADDER MANAGEMENT - STEP 1: Does the patient control the bladder completely and intentionally without equipment or devices or med ications, and is always continent? No. BLADDER MANAGEMENT - STEP 2: Does the patient require the assistance of a helper? Yes. BLADDER MANAGEMENT - STEP 3: How much assistance does the patient require from the helper? Patient requires contact assistance fro m the helper BLADDER MANAGEMENT - STEP 4: How much contact assistance does the patient require from the helper? Patient requires moderate joselito tance, and performs 50% to 75% of bladder management tasks - [place] positions AND holds urinal or bed hicks BLADDER MANAGEMENT - SCORE: 3-MOD BLADDER MANAGEMENT - FREQUENCY OF ACCIDENTS: BLADDER MANAGEMENT(FA) - STEP 1: How many accidents has the patient had during the current shift? 1 BOWEL MANAGEMENT: Activity did not occur on this shift BOWEL MANAGEMENT - SCORE: 7-IND TRANSFERS: BED, CHAIR, WHEELCHAIR: Activity did not occur on this shift TRANSFERS: BED, CHAIR, WHEELCHAIR - SCORE: 0-UNK TRANSFERS: TOILET: Activity did not occur on this shift TRANSFERS: TOILET - SCORE: 0-UNK TRANSFERS: SHOWER: Activity did not occur on this shift TRANSFERS: SHOWER - SCORE: 0-UNK TRANSFERS: TUB: Activity did not occur on this shift TRANSFERS: TUB - SCORE: 0-UNK LOCOMOTION: WALK: Activity did not occur on this shift LOCOMOTION: WALK - SCORE: 0-UNK LOCOMOTION: WHEELCHAIR: Activity did not occur on this shift LOCOMOTION: WHEELCHAIR - SCORE: 0-UNK COMPREHENSION: COMPREHENSION: TYPE: Both COMPREHENSION - STEP 1: Does the patient require help from a person or device, or need extra time to understand complex and a bstract ideas (such as current events, finances, discharge planning, medical issues, relationships, e tc)? No. COMPREHENSION - STEP 2: Does the patient need extra time, require an assistive device (such as glasses for visual comprehensi on or a hearing aid for auditory comprehension) or does s/he have mild difficulty understanding compl ex and abstract information? Yes. COMPREHENSION - SCORE: 6-RASHAWN EXPRESSION EXPRESSION: TYPE: Both EXPRESSION - STEP 1: Does the patient require help from a person or device, or need extra time expressing complex and abst ract ideas (such as current events, finances, discharge planning, medical issues, relationships, etc) ? No. EXPRESSION - STEP 2: Does the patient need extra time, require an assistive device (such as augmentive communication syste m or a communication board), OR does s/he have mild difficulty expressing complex and abstract ideas (including mild dysarthria or mild word-find problems)? No. EXPRESSION - SCORE: 7-IND SOCIAL INTERACTION: SOCIAL INTERACTION - STEP 1: Does the patient require a helper to interact with others in social and therapeutic situations? No. SOCIAL INTERACTION - STEP 2: Does the patient need extra time in social situations, OR does s/he interact with staff, other patien ts, and family members ONLY in structured environments, OR does s/he require medication for social in teraction? Yes, patient needs extra time SOCIAL INTERACTION - SCORE: 6-RASHAWN PROBLEM SOLVING: PROBLEM SOLVING - STEP 1: Does the patient need help from a person or device, or need extra time to solve complex problems such as managing a checking account or confronting interpersonal problems? No. PROBLEM SOLVING - STEP 2: Does the patient require extra time to make decisions or solve problems, OR does s/he have slight dif ficulty reading, initiating, or self-correcting in unfamiliar situations? Yes, patient needs extra ti me. PROBLEM SOLVING - SCORE: 6-RASHAWN MEMORY: MEMORY - STEP 1: Does the patient need help from a person or device, or need extra time to remember frequently encount ered people, daily routines, and executing requests? No. MEMORY - STEP 2: Does the patient have slight difficulty recognizing frequently encountered people, daily routines, or executing requests without the need for repetition or using self-initiated or environmental cues to remember? No. MEMORY - SCORE: 7-IND SIGNATURE PANEL: The following modified sections: Eating - Score, Grooming - Score, Bathing - Score, Dressing - Upper Body - Score, Dressing - Lower Body - Score, Toileting - Score, Bladder Management - Score, Bowel Man agement - Score, Transfers: Bed, Chair, Wheelchair - Score, Transfers: Toilet - Score, Transfers: Donna wer - Score, Transfers: Tub - Score, Locomotion: Walk - Score, Locomotion: Wheelchair - Score, Compre hension - Score, Expression - Score, Social Interaction - Score, Problem Solving - Score, Memory - Sc ore were [electronically] signed by Diana Ernst CNA on MonSep 17 2018 01:29:20 T-0600 ([facility])
[2018-09-17] MEDS: LEVOTHYROXINE SOD 0.1 MG TAB PO SCH (05:08)
[2018-09-17] MEDS: ENOXAPARIN 30 MG/0.3 ML SQ SCH (07:11)
[2018-09-17] MEDS: INSULIN -REGULAR HUMAN 50 UNIT/0.5 ML ML SQ SCH ×4 (07:30→20:43)
[2018-09-17] MEDS: NPH (HUMAN) 100 UNITS/ML INSULIN SQ SCH ×2 (08:00→17:05)
[2018-09-17] MEDS: GALANTAMINE 4 MG TAB PO SCH (08:05)
[2018-09-17] MEDS: CLOPIDOGREL 75 MG TABLET PO SCH (08:05)
[2018-09-17] MEDS: BUPROPION HCL XL 150 MG TAB PO SCH (08:06)
[2018-09-17] MEDS: CRANBERRY FRUIT EXTRACT 200 MG CAP PO SCH ×2 (08:06→20:41)
[2018-09-17] MEDS: VENLAFAXINE HCL XR 75 MG CAP PO SCH ×2 (08:06→20:40)
[2018-09-17] MEDS: METFORMIN HCL 500 MG TAB PO SCH ×2 (08:06→17:04)
[2018-09-17] MEDS: FERROUS SULFATE 325 MG TAB PO SCH (08:07)
[2018-09-17] MEDS: SPIRONOLACTONE 25 MG TABLET PO SCH (08:07)
[2018-09-17] MEDS: FE SULF/FA/VIT B COMP & C TAB PO SCH (08:07)
[2018-09-17] MEDS: DOCOSAHEXANOIC AC/EPA 1000 MG PO SCH ×2 (08:07→20:00)
[2018-09-17] MEDS: BUMETANIDE 1 MG TABLET PO SCH (08:07)
[2018-09-17] MEDS: ASPIRIN EC 81 MG TAB PO SCH (08:08)
[2018-09-17] MEDS: CIPROFLOXACIN HCL 500 MG TAB PO SCH ×2 (08:08→20:41)
[2018-09-17] MEDS: METOPROLOL TAR 25 MG TAB PO SCH ×2 (08:08→20:40)
[2018-09-17] MEDS: PIOGLITAZONE 15 MG TAB PO SCH (08:08)
[2018-09-17] MEDS: DIGOXIN 0.125 MG TABLET PO SCH (08:08)
[2018-09-17] MEDS: MULTIVITAMIN TAB PO SCH (08:08)
[2018-09-17] MEDS: PROMOD 30 ML DOSE PO SCH ×2 (08:09→20:42)
[2018-09-17] MEDS: TRAMADOL HCL 50 MG TAB PO PRN ×2 (08:09→20:41)
[2018-09-17 10:59] LABS: Absolute Lymphocytes (CBC) 2.4 K/uL (0.7-4.9); Absolute Monocytes 0.7 K/uL (0.1-1.3); Absolute Neutrophil 7.2 K/uL (1.8-8.0); Basophils % 0.7 % (0-1.3); Eosinophils % 2.3 % (0-4.4); Hematocrit 30.7 % (36.0-45.0); Lymphocytes % 22.4 % (15.3-44.8); MPV 7.7 fL (7.6-11.3); Monocytes % 6.4 % (3.3-12.3); RBC Red Blood Cell Count 3.39 M/uL (3.86-4.86)
[2018-09-17] MEDS: HYDROCODONE/APAP 5/325 MG TAB PO PRN (12:32)
[2018-09-17] MEDS: LIDOCAINE 5% PATCH TOP SCH (13:53)
--- NOTE | 2018-09-17 14:23 | FAST ---
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 Delmer Gonzalez M.D. ADMISSION DIAGNOSIS: - Orthopaedic Disorders 08 - Unilateral Hip Fracture (08.11) Closed Displaced Midcervical Frcature of Right Femur. EATING: EATING - STEP 1: Does the patient require the assistance of a person or device, or need extra time when eating? Yes. EATING - STEP 2: Does the patient require the assistance of a helper? Yes. EATING - STEP 3: Does the patient perform half or more of the eating tasks? Yes. EATING - STEP 4: Does the patient need only supervision, cuing, coaxing OR help to apply an orthosis OR help to cut fo od, open containers, pour liquids, or butter bread? Yes. EATING - SCORE: 5-SUP GROOMING: Comb/brush hair Oral care Wash, rinse, and dry face Wash, rinse, and dry hands GROOMING - STEP 1: Does the patient require the assistance of a person or device, or need extra time when grooming? Yes. GROOMING - STEP 2: Does the patient require the assistance of a helper? Yes. GROOMING - STEP 3: How much assistance does the patient require from the helper? Only prior equipment preparation/set up from the helper GROOMING - SCORE: 5-SUP BATHING: Activity did not occur on this shift BATHING - SCORE: 0-UNK DRESSING - UPPER BODY: Activity did not occur on this shift ARTICLES SCORE Total number of steps: 0 DRESSING - UPPER BODY - SCORE: 0-UNK DRESSING - LOWER BODY: Activity did not occur on this shift ARTICLES SCORE Total number of steps: 0 DRESSING - LOWER BODY - SCORE: 0-UNK TOILETING: TOILETING - STEP 1: Does the patient require the assistance of a person or device, or need extra time with toileting? Yes . TOILETING - STEP 2: Does the patient require the assistance of a helper? Yes. TOILETING - STEP 3: How much assistance does the patient require from the helper? Only supervision TOILETING - SCORE: 5-SUP BLADDER MANAGEMENT: BLADDER MANAGEMENT - STEP 1: Does the patient control the bladder completely and intentionally without equipment or devices or med ications, and is always continent? No. BLADDER MANAGEMENT - STEP 2: Does the patient require the assistance of a helper? No, patient requires and independently uses an a ssistive device, such as a urinal, bedpan, bedside commode, catheter, absorbent pad, or collecting de vice BLADDER MANAGEMENT - SCORE: 6-RASHAWN BLADDER MANAGEMENT - FREQUENCY OF ACCIDENTS: BLADDER MANAGEMENT(FA) - STEP 1: How many accidents has the patient had during the current shift? 0 BOWEL MANAGEMENT: BOWEL MANAGEMENT - STEP 1: Does the patient control bowels completely and intentionally without equipment devices or medications AND is always continent? No. BOWEL MANAGEMENT - STEP 2: Does the patient require the assistance of a helper? No, patient requires and manages independently a n assistive device such as a bedpan, bedside commode, absorbent pad, incontinent device, or collectin g device BOWEL MANAGEMENT - SCORE: 6-RASHAWN BOWEL MANAGEMENT - FREQUENCY OF ACCIDENTS: BOWEL MANAGEMENT(FA) - STEP 1: How many accidents has the patient had during the current shift? 0 TRANSFERS: BED, CHAIR, WHEELCHAIR: TRANSFERS: BED, CHAIR, WHEELCHAIR - STEP 1: Does the patient require assistance of a person or device, or need extra time with bed, chair, or whe elchair transfers? Yes. TRANSFERS: BED, CHAIR, WHEELCHAIR - STEP 2: Does the patient require the assistance of a helper? Yes. TRANSFERS: BED, CHAIR, WHEELCHAIR - STEP 3: How much assistance does the patient require from the helper? Lifting of the legs TRANSFERS: BED, CHAIR, WHEELCHAIR - STEP 4: How many legs does the patient require the helper to lift? both legs TRANSFERS: BED, CHAIR, WHEELCHAIR - SCORE: 3-MOD TRANSFERS: TOILET: TRANSFERS: TOILET - STEP 1: Does the patient require the assistance of a person or device, or need extra time with toilet transfe rs? Yes. TRANSFERS: TOILET - STEP 2: Does the patient require the assistance of a helper? Yes. TRANSFERS: TOILET - STEP 3: How much assistance does the patient require from the helper? Patient performs half or more of the tr ansferring tasks TRANSFERS: TOILET - STEP 4: Does the patient need only incidental help such as contact guard or steadying during toilet transfer? Yes. TRANSFERS: TOILET - SCORE: 4-MIN TRANSFERS: SHOWER: Activity did not occur on this shift TRANSFERS: SHOWER - SCORE: 0-UNK TRANSFERS: TUB: Activity did not occur on this shift TRANSFERS: TUB - SCORE: 0-UNK LOCOMOTION: WALK: Activity did not occur on this shift LOCOMOTION: WALK - SCORE: 0-UNK LOCOMOTION: WHEELCHAIR: LOCOMOTION: WHEELCHAIR - STEP 1: Does the patient need help to go 150 feet in a wheelchair? Yes. LOCOMOTION: WHEELCHAIR - STEP 2: How much assistance does the patient need from the helper? Only supervision, cuing, or coaxing LOCOMOTION: WHEELCHAIR - SCORE: 5-SUP COMPREHENSION: COMPREHENSION: TYPE: Both COMPREHENSION - STEP 1: Does the patient require help from a person or device, or need extra time to understand complex and a bstract ideas (such as current events, finances, discharge planning, medical issues, relationships, e tc)? Yes. COMPREHENSION - STEP 2: Does the patient require help to understand questions or statements about basic needs or ideas (such as hunger, thirst, sleep, safety, daily schedule, room location, or discomfort) half or more of the t nan? No. COMPREHENSION - STEP 3: How often does the patient need help to understand directions and conversation about basic needs? Les s than 10% of the time COMPREHENSION - SCORE: 5-SUP EXPRESSION EXPRESSION: TYPE: Both EXPRESSION - STEP 1: Does the patient require help from a person or device, or need extra time expressing complex and abst ract ideas (such as current events, finances, discharge planning, medical issues, relationships, etc) ? No. EXPRESSION - STEP 2: Does the patient need extra time, require an assistive device (such as augmentive communication syste m or a communication board), OR does s/he have mild difficulty expressing complex and abstract ideas (including mild dysarthria or mild word-find problems)? Yes. EXPRESSION - SCORE: 6-RASHAWN SOCIAL INTERACTION: SOCIAL INTERACTION - STEP 1: Does the patient require a helper to interact with others in social and therapeutic situations? No. SOCIAL INTERACTION - STEP 2: Does the patient need extra time in social situations, OR does s/he interact with staff, other patien ts, and family members ONLY in structured environments, OR does s/he require medication for social in teraction? Yes, patient needs extra time SOCIAL INTERACTION - SCORE: 6-RASHAWN PROBLEM SOLVING: PROBLEM SOLVING - STEP 1: Does the patient need help from a person or device, or need extra time to solve complex problems such as managing a checking account or confronting interpersonal problems? Yes. PROBLEM SOLVING - STEP 2: Does the patient solve basic routine problems half or more of the time? Yes. PROBLEM SOLVING - STEP 3: How often does the patient need help to solve basic routine problems? Less than 10% of the time PROBLEM SOLVING - SCORE: 5-SUP MEMORY: MEMORY - STEP 1: Does the patient need help from a person or device, or need extra time to remember frequently encount ered people, daily routines, and executing requests? No. MEMORY - STEP 2: Does the patient have slight difficulty recognizing frequently encountered people, daily routines, or executing requests without the need for repetition or using self-initiated or environmental cues to remember? Yes. MEMORY - SCORE: 6-RASHAWN SIGNATURE PANEL: The following modified sections: Eating - Score, Grooming - Score, Bathing - Score, Dressing - Upper Body - Score, Dressing - Lower Body - Score, Toileting - Score, Bladder Management - Score, Bowel Man agement - Score, Transfers: Bed, Chair, Wheelchair - Score, Transfers: Toilet - Score, Transfers: Donna wer - Score, Transfers: Tub - Score, Locomotion: Walk - Score, Locomotion: Wheelchair - Score, Compre hension - Score, Expression - Score, Social Interaction - Score, Problem Solving - Score, Memory - Sc ore were [electronically] signed by Yokasta Dailey C.N.A. on MonSep 17 2018 14:22:37 GMT-0600 ([facility] [place])
--- NOTE | 2018-09-17 16:13 | FAST ---
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 Delmer Gonzalez M.D. ADMISSION DIAGNOSIS: - Orthopaedic Disorders 08 - Unilateral Hip Fracture (08.11) Closed Displaced Midcervical Frcature of Right Femur. EATING: Activity did not occur on this shift EATING - SCORE: 0-UNK GROOMING: Activity did not occur on this shift GROOMING - SCORE: 0-UNK BATHING: Activity did not occur on this shift BATHING - SCORE: 0-UNK DRESSING - UPPER BODY: Activity did not occur on this shift Patient is not dressing in public clothing ARTICLES SCORE Total number of steps: 0 DRESSING - UPPER BODY - SCORE: 0-UNK DRESSING - LOWER BODY: Activity did not occur on this shift Patient is not dressing in public clothing ARTICLES SCORE Total number of steps: 0 DRESSING - LOWER BODY - SCORE: 0-UNK TOILETING: Activity did not occur on this shift TOILETING - SCORE: 0-UNK BLADDER MANAGEMENT: Activity did not occur on this shift BLADDER MANAGEMENT - SCORE: 7-IND BOWEL MANAGEMENT: Activity did not occur on this shift BOWEL MANAGEMENT - SCORE: 7-IND TRANSFERS: BED, CHAIR, WHEELCHAIR: TRANSFERS: BED, CHAIR, WHEELCHAIR - STEP 1: Does the patient require assistance of a person or device, or need extra time with bed, chair, or whe elchair transfers? Yes. TRANSFERS: BED, CHAIR, WHEELCHAIR - STEP 2: Does the patient require the assistance of a helper? No. Patient only requires an assistive device fo r bed, chair, wheelchair transfers such as a sliding board, grab bar, or brace, OR s/he takes more th an reasonable time, OR there is a safety concern when s/he performs the transfers TRANSFERS: BED, CHAIR, WHEELCHAIR - SCORE: 6-RASHAWN TRANSFERS: TOILET: Activity did not occur on this shift TRANSFERS: TOILET - SCORE: 0-UNK TRANSFERS: SHOWER: Activity did not occur on this shift TRANSFERS: SHOWER - SCORE: 0-UNK TRANSFERS: TUB: Activity did not occur on this shift TRANSFERS: TUB - SCORE: 0-UNK LOCOMOTION: WALK: LOCOMOTION: WALK - STEP 1: Does the patient need help from a person or device, or need extra time to walk 150 feet? Yes. LOCOMOTION: WALK - STEP 2: How much assistance does the patient require to walk a minimum of 150 feet? Only supervision, cuing, or coaxing LOCOMOTION: WALK - SCORE: 5-SUP LOCOMOTION: WHEELCHAIR: LOCOMOTION: WHEELCHAIR - STEP 1: Does the patient need help to go 150 feet in a wheelchair? Yes. LOCOMOTION: WHEELCHAIR - STEP 2: How much assistance does the patient need from the helper? Only supervision, cuing, or coaxing LOCOMOTION: WHEELCHAIR - SCORE: 5-SUP LOCOMOTION: STAIRS: Activity did not occur on this shift LOCOMOTION: STAIRS - SCORE: 0-UNK COMPREHENSION: COMPREHENSION - SCORE: 0-UNK EXPRESSION EXPRESSION - SCORE: 0-UNK SOCIAL INTERACTION: SOCIAL INTERACTION - SCORE: 0-UNK PROBLEM SOLVING: PROBLEM SOLVING - SCORE: 0-UNK MEMORY: MEMORY - SCORE: 0-UNK SIGNATURE PANEL: The following modified sections: Transfers: Bed, Chair, Wheelchair - Score, Transfers: Toilet - Score , Locomotion: Walk - Score, Locomotion: Wheelchair - Score, Locomotion: Stairs - Score were [electron ically] signed by Von Cowan PT on MonSep 17 2018 16:12:04 GMT-0600 (Central Standard Time)
--- NOTE | 2018-09-17 17:42 | R.PN ---
ENCOUNTER DATE AND TIME: 09/17/2018 17:33 (CONTENT DEVELOPER) NAME VINCE SANDERS DATE OF : 1945 DATE OF ADMISSION: 09/11/2018 17:29 (CONTENT DEVELOPER) Closed Displaced Midcervical Frcature of Right FemurCHIEF COMPLAINT: Right femur fracture SUBJECTIVE: Pt denied any Shortness of Breath. Pt denied any depression. Ambulated 650' with standby assistance using a rolling walker. Hgb 10.3, Glucose 72-148. Will decrease nightly NPH to 51 units. On cipro for UTI. Ambulated 750' with standby assistance using a rolling walker. VITAL SIGNS Temperature: 98 F SBP/DBP: 139/62 Pulse: 67 Resp: 15 MEDICATION ALLERGIES: No Known Drug Allergies (NKDA) ENVIRONMENTAL ALLERGIES: None Known - Substance Allergies None Known - Other Allergies None Known NURSING: - Shower allowing shower - Lab Results blood Sugar Check ACHS - Skin care per protocol PRECAUTIONS: - Posterior Hip Precaution No adduction across midline No external rotation No hip flexion >90 degrees No internal rotation No wheel chair propulsion - Weight Bearing Precaution WBAT right LE ACTIVITIES OOB only with supervision THERAPIES: - Occupational Therapy Evaluate and Treat. - Physical Therapy Evaluate and Treat. PHYSICAL EXAM - Gen Alert and awake Lying in bed No apparent distress Oriented to: person, time, and place - Skin No beakdown No abnormalities - Eyes No abnormalities - ENMT No abnormalities - Neck No abnormalities - CVS RRR - Chest Clear - Abd + bowel sounds - GI Soft Deferred - No abnormalities - Ext Right hip surgical site has good hemostasis. - MSK 4+/5 weakness in right lower extremity. - Neuro 4/5 strength right lower extremity - Psych No abnormalities ASSESSMENT: Pt. is a 73 yo Right-handed white female.[facility]osed Displaced Midcervical Frcature of Right Femur.Her impairment category is Orth opaedic Disorders 08 - Unilateral Hip Fracture (08.11).Pre-morbidly, Pt. was independent/mod-I in Se lf-Care, Locomotion, Sphincter Control, Transfers Control, Communication, and Social Cognition; and s he had good Sphincter Control.Currently, she has deficits of Balance, Locomotion, Endurance, Safety A wareness, Transfers Control, and Self-Care.Pt. is now referred to [facility] or acute in-patient rehabilitation in order to maximize patient's functional independence in activiti es of daily living, strength, ROM, and mobility.- Rehab Goal Patient has realistic goal of being discharged at assistance level 6-Josias to reside at Home with Fam alma delia/Relatives. MDM/PLAN: - Physical Therapy Decreased range of motion - to improve, our physical therapists will perform initial evaluation of p t's status upon admission and devise an individualized program for increasing patient's Range of Alex on. Gait dysfunction - to improve, our physical therapists will perform initial evaluation of pt's statu s upon admission and devise an individualized program for Gait Training, and Wheel Chair mobility Inability to transfer - to improve, our physical therapists will perform initial evaluation of pt's status upon admission and devise an individualized program for Bed mobility Need for home safety evaluation - to improve, our physical therapists will perform initial evaluatio n of pt's status upon admission and devise an individualized program for Home Evaluation Need in caregiver upon discharge - to improve, our physical therapists will perform initial evaluati on of pt's status upon admission and devise an individualized program for Caregiver Training New precaution - to improve, our physical therapists will perform initial evaluation of pt's status upon admission and devise an individualized program for Patient precaution education Poor balance - to improve, our physical therapists will perform initial evaluation of pt's status up on admission and devise an individualized program for Balance Training Poor endurance - to improve, our physical therapists will perform initial evaluation of pt's status upon admission and devise an individualized program for Endurance Training Weakness - to improve, our physical therapists will perform initial evaluation of pt's status upon a dmission and devise an individualized program for Aquatic Therapy, Neuromuscular Reeducation, and Str engthening Achieving independence - to improve, our physical therapists will perform initial evaluation of pt's status upon admission and devise an individualized program for Community Reintegration Activities - Occupational Therapy ADL deficits - to improve, our occupation therapists will perform initial evaluation of pt's status upon admission and devise an individualized program for Bathing, Bed mobility, Community Reintegratio n, Cooking, Dressing, Eating, Fine Motor Skills, Grooming, Homemaking, Kitchen Mobility, Laundry, Pat ient Education, Safety Awareness, Splinting - Positioning, Transfers(Toilet, Tub, Shower), and Wheel Chair Management Need for disabilities caregiver - to improve, our occupation therapists will perform initial evaluation of pt's status upon admission and devise an individualized program for Caregiver Training Weakness - to improve, our occupation therapists will perform initial evaluation of pt's status upon admission and devise an individualized program for Aquatic Therapy, Balance, Endurance, UE ROM, and UE strengthening - Anterior Hip Precaution No abduction No active extension No adduction across midline No external rotation No hip flexion >90 degrees No internal rotation - Diet - Liquid Texture Continue Regular - Tube Feed Continue N/A - Diet Type Continue Regular - Posterior Hip Precaution No adduction across midline No external rotation No hip flexion >90 degrees No internal rotation No wheel chair propulsion - Lab Results blood Sugar Check ACHS - Weight Bearing Precaution WBAT right LE - Skin care per protocol - Diet - Solid Texture Continue Regular - Shower allowing shower FUNCTIONAL STATUS: UPDATED AT WEEKLY TEAM CONFERENCE - Bladder Same accident frequency: 7-Ind - No accidents in the past 7 days - Bowel Same accident frequency: 7-Ind - No accidents in the past 7 days - Walking Same score based on distance walked: 1(<=50ft) - Wheelchair Same score based on distance traveled: 0(N/A) FUNCTIONAL STATUS: - Self-Care A. Eating Ind B. Grooming Ind C. Bathing sup D. Dressing - Upper sup E. Dressing - Lower modA F. Toileting maxA - Sphincter Control G: Bladder control Ind H: Bowel control Ind - Transfers Control I. Bed/Chair/Wheelchair min-to-modA J. Toilet modA K. Tub/Shower ADNO - Locomotion L. Walk/Wheelchair (C) modA L. Walk/Wheelchair (W) modA M. Stairs ADNO - Communication N. Comprehension (B) Josias O. Expression (B) Josias - Social Cognition P. Social Interaction Josias Q. Problem Solving Josias R. Memory Josias - Endurance Fair - Balance Fair - Safety Awareness Fair CURRENT FUNC. DEFICITS: Balance, Locomotion, Endurance, Safety Awareness, Transfers Control, and Self-Care SIGNATURE PANEL: (CONTENT DEVELOPER)
[2018-09-17] MEDS: MAGNESIUM OXIDE 400 MG TAB PO SCH (20:41)
[2018-09-17] MEDS: PRIMIDONE 50 MG TAB PO SCH (20:42)
[2018-09-17] MEDS: ATORVASTATIN 10 MG TAB PO SCH (20:42)
[2018-09-17] MEDS: MELATONIN 3 MG TABLET PO PRN (20:42)
[2018-09-17] MEDS: GABAPENTIN 300 MG CAP PO SCH (20:42)
--- NOTE | 2018-09-18 00:25 | FAST ---
SHIFT START DATE/TIME: 09/17/2018 19:00 (BANK ANALYST) SHIFT END DATE/TIME: 09/18/2018 07:00 (BANK ANALYST) NAME VINCE SANDERS DATE OF : 1945 DATE OF ADMISSION: 09/11/2018 17:29 (BANK ANALYST) PHONE: AGE: 73 SSN# [id number] GENDER: Female ENCOUNTER PHYSICIAN: Dr. Delmer Gonzalez M.D. ADMISSION DIAGNOSIS: - Orthopaedic Disorders 08 - Unilateral Hip Fracture (08.11) Closed Displaced Midcervical Frcature of Right Femur. EATING: Activity did not occur on this shift EATING - SCORE: 0-UNK GROOMING: Oral care Wash, rinse, and dry hands GROOMING - STEP 1: Does the patient require the assistance of a person or device, or need extra time when grooming? Yes. GROOMING - STEP 2: Does the patient require the assistance of a helper? Yes. GROOMING - STEP 3: How much assistance does the patient require from the helper? Only prior equipment preparation/set up from the helper GROOMING - SCORE: 5-SUP BATHING: Activity did not occur on this shift BATHING - SCORE: 0-UNK DRESSING - UPPER BODY: Patient is not dressing in public clothing ARTICLES SCORE Total number of steps: 0 DRESSING - UPPER BODY - SCORE: 0-UNK DRESSING - LOWER BODY: Patient is not dressing in public clothing ARTICLES SCORE Total number of steps: 0 DRESSING - LOWER BODY - SCORE: 0-UNK TOILETING: TOILETING - STEP 1: Does the patient require the assistance of a person or device, or need extra time with toileting? Yes . TOILETING - STEP 2: Does the patient require the assistance of a helper? Yes. TOILETING - STEP 3: How much assistance does the patient require from the helper? Hands-on assistance from the helper TOILETING - STEP 4: Of the 3 tasks: 1) Adjusting clothing prior to use, 2) Cleansing of perineal area, 3) Adjusting clot juana after use; How many tasks does the patient perform WITHOUT assistance of the helper? Two tasks TOILETING - SCORE: 3-MOD BLADDER MANAGEMENT: Seymour removes incontinent device (Depends, pull ups, etc.); cleans the patient after accident / inco ntinent episode; and, applies new incontinent device. BLADDER MANAGEMENT - SCORE: 1-DEP BOWEL MANAGEMENT: Activity did not occur on this shift BOWEL MANAGEMENT - SCORE: 7-IND TRANSFERS: BED, CHAIR, WHEELCHAIR: TRANSFERS: BED, CHAIR, WHEELCHAIR - STEP 1: Does the patient require assistance of a person or device, or need extra time with bed, chair, or whe elchair transfers? Yes. TRANSFERS: BED, CHAIR, WHEELCHAIR - STEP 2: Does the patient require the assistance of a helper? Yes. TRANSFERS: BED, CHAIR, WHEELCHAIR - STEP 3: How much assistance does the patient require from the helper? Lifting of the legs TRANSFERS: BED, CHAIR, WHEELCHAIR - STEP 4: How many legs does the patient require the helper to lift? both legs TRANSFERS: BED, CHAIR, WHEELCHAIR - SCORE: 3-MOD TRANSFERS: TOILET: TRANSFERS: TOILET - STEP 1: Does the patient require the assistance of a person or device, or need extra time with toilet transfe rs? Yes. TRANSFERS: TOILET - STEP 2: Does the patient require the assistance of a helper? Yes. TRANSFERS: TOILET - STEP 3: How much assistance does the patient require from the helper? Only supervision, cuing, coaxing, OR he lp to set out transfer equipment or to lock brakes and/or lift foot rests TRANSFERS: TOILET - SCORE: 5-SUP TRANSFERS: SHOWER: Activity did not occur on this shift TRANSFERS: SHOWER - SCORE: 0-UNK TRANSFERS: TUB: Activity did not occur on this shift TRANSFERS: TUB - SCORE: 0-UNK LOCOMOTION: WALK: Activity did not occur on this shift LOCOMOTION: WALK - SCORE: 0-UNK LOCOMOTION: WHEELCHAIR: Activity did not occur on this shift LOCOMOTION: WHEELCHAIR - SCORE: 0-UNK COMPREHENSION: COMPREHENSION: TYPE: Both COMPREHENSION - STEP 1: Does the patient require help from a person or device, or need extra time to understand complex and a bstract ideas (such as current events, finances, discharge planning, medical issues, relationships, e tc)? Yes. COMPREHENSION - STEP 2: Does the patient require help to understand questions or statements about basic needs or ideas (such as hunger, thirst, sleep, safety, daily schedule, room location, or discomfort) half or more of the t nan? No. COMPREHENSION - STEP 3: How often does the patient need help to understand directions and conversation about basic needs? Les s than 10% of the time COMPREHENSION - SCORE: 5-SUP EXPRESSION EXPRESSION: TYPE: Both EXPRESSION - STEP 1: Does the patient require help from a person or device, or need extra time expressing complex and abst ract ideas (such as current events, finances, discharge planning, medical issues, relationships, etc) ? No. EXPRESSION - STEP 2: Does the patient need extra time, require an assistive device (such as augmentive communication syste m or a communication board), OR does s/he have mild difficulty expressing complex and abstract ideas (including mild dysarthria or mild word-find problems)? Yes. EXPRESSION - SCORE: 6-RASHAWN SOCIAL INTERACTION: SOCIAL INTERACTION - STEP 1: Does the patient require a helper to interact with others in social and therapeutic situations? No. SOCIAL INTERACTION - STEP 2: Does the patient need extra time in social situations, OR does s/he interact with staff, other patien ts, and family members ONLY in structured environments, OR does s/he require medication for social in teraction? Yes, patient needs extra time SOCIAL INTERACTION - SCORE: 6-RASHAWN PROBLEM SOLVING: PROBLEM SOLVING - STEP 1: Does the patient need help from a person or device, or need extra time to solve complex problems such as managing a checking account or confronting interpersonal problems? Yes. PROBLEM SOLVING - STEP 2: Does the patient solve basic routine problems half or more of the time? Yes. PROBLEM SOLVING - STEP 3: How often does the patient need help to solve basic routine problems? Less than 10% of the time PROBLEM SOLVING - SCORE: 5-SUP MEMORY: MEMORY - STEP 1: Does the patient need help from a person or device, or need extra time to remember frequently encount ered people, daily routines, and executing requests? No. MEMORY - STEP 2: Does the patient have slight difficulty recognizing frequently encountered people, daily routines, or executing requests without the need for repetition or using self-initiated or environmental cues to remember? Yes. MEMORY - SCORE: 6-RASHAWN SIGNATURE PANEL: The following modified sections: Eating - Score, Grooming - Score, Dressing - Upper Body - Score, Brent ssing - Lower Body - Score, Toileting - Score, Bladder Management - Score, Bowel Management - Score, Transfers: Bed, Chair, Wheelchair - Score, Transfers: Toilet - Score, Transfers: Shower - Score, St sfers: Tub - Score, Locomotion: Walk - Score, Locomotion: Wheelchair - Score, Comprehension - Score, Expression - Score, Social Interaction - Score, Problem Solving - Score, Memory - Score were [electro nically] signed by Karon Mata CNA on MonSep 18 2018 00:24:25 GMT-0600 (Central Standard Time)
[2018-09-18] MEDS: LEVOTHYROXINE SOD 0.1 MG TAB PO SCH (04:59)
[2018-09-18] MEDS: HYDROCODONE/APAP 5/325 MG TAB PO PRN ×3 (06:42→19:17)
[2018-09-18] MEDS: LIDOCAINE 5% PATCH TOP SCH (06:42)
[2018-09-18] MEDS: INSULIN -REGULAR HUMAN 50 UNIT/0.5 ML ML SQ SCH ×4 (07:30→20:20)
[2018-09-18] MEDS: METOPROLOL TAR 25 MG TAB PO SCH ×2 (08:00→19:16)
[2018-09-18] MEDS: GALANTAMINE 4 MG TAB PO SCH (08:13)
[2018-09-18] MEDS: DIGOXIN 0.125 MG TABLET PO SCH (08:14)
[2018-09-18] MEDS: CRANBERRY FRUIT EXTRACT 200 MG CAP PO SCH ×2 (08:14→19:15)
[2018-09-18] MEDS: MULTIVITAMIN TAB PO SCH (08:15)
[2018-09-18] MEDS: VENLAFAXINE HCL XR 75 MG CAP PO SCH ×2 (08:15→19:16)
[2018-09-18] MEDS: DOCOSAHEXANOIC AC/EPA 1000 MG PO SCH ×2 (08:15→19:15)
[2018-09-18] MEDS: ASPIRIN EC 81 MG TAB PO SCH (08:16)
[2018-09-18] MEDS: BUPROPION HCL XL 150 MG TAB PO SCH (08:16)
[2018-09-18] MEDS: CIPROFLOXACIN HCL 500 MG TAB PO SCH (08:16)
[2018-09-18] MEDS: FERROUS SULFATE 325 MG TAB PO SCH (08:16)
[2018-09-18] MEDS: CLOPIDOGREL 75 MG TABLET PO SCH (08:17)
[2018-09-18] MEDS: PIOGLITAZONE 15 MG TAB PO SCH (08:17)
[2018-09-18] MEDS: MAGNESIUM OXIDE 400 MG TAB PO SCH ×2 (08:17→19:15)
[2018-09-18] MEDS: METFORMIN HCL 500 MG TAB PO SCH ×2 (08:17→16:59)
[2018-09-18] MEDS: BUMETANIDE 1 MG TABLET PO SCH (08:17)
[2018-09-18] MEDS: FE SULF/FA/VIT B COMP & C TAB PO SCH (08:17)
[2018-09-18] MEDS: ENOXAPARIN 30 MG/0.3 ML SQ SCH (08:18)
[2018-09-18] MEDS: PROMOD 30 ML DOSE PO SCH ×2 (08:19→19:21)
[2018-09-18] MEDS: TRAMADOL HCL 50 MG TAB PO PRN (08:29)
[2018-09-18] MEDS: NPH (HUMAN) 100 UNITS/ML INSULIN SQ SCH ×2 (09:20→17:00)
[2018-09-18] MEDS: SPIRONOLACTONE 25 MG TABLET PO SCH (10:26)
--- NOTE | 2018-09-18 15:09 | FAST ---
SHIFT START DATE/TIME: 09/18/2018 07:00 (COGNOS DEVELOPER) SHIFT END DATE/TIME: 09/18/2018 19:00 (COGNOS DEVELOPER) NAME VINCE SANDERS DATE OF : 1945 DATE OF ADMISSION: 09/11/2018 17:29 (COGNOS DEVELOPER) PHONE: AGE: 73 SSN# [id number] GENDER: Female ENCOUNTER PHYSICIAN: Dr. Delmer Gonzalez M.D. ADMISSION DIAGNOSIS: - Orthopaedic Disorders 08 - Unilateral Hip Fracture (08.11) Closed Displaced Midcervical Frcature of Right Femur. EATING: EATING - STEP 1: Does the patient require the assistance of a person or device, or need extra time when eating? Yes. EATING - STEP 2: Does the patient require the assistance of a helper? Yes. EATING - STEP 3: Does the patient perform half or more of the eating tasks? Yes. EATING - STEP 4: Does the patient need only supervision, cuing, coaxing OR help to apply an orthosis OR help to cut fo od, open containers, pour liquids, or butter bread? Yes. EATING - SCORE: 5-SUP GROOMING: GROOMING - STEP 1: Does the patient require the assistance of a person or device, or need extra time when grooming? Yes. GROOMING - STEP 2: Does the patient require the assistance of a helper? Yes. GROOMING - STEP 3: How much assistance does the patient require from the helper? Cuing, coaxing, instructions, or encour agement for completion of grooming GROOMING - SCORE: 5-SUP BATHING: Activity did not occur on this shift BATHING - SCORE: 0-UNK DRESSING - UPPER BODY: Bra (three steps) T-shirt/pullover shirt (four steps) ARTICLES SCORE Total number of steps: 7 DRESSING - UPPER BODY - STEP 1: Does the patient require help from a person or device, or need extra time when dressing above the breanne st? Yes. DRESSING - UPPER BODY - STEP 2: Does the patient require the assistance of a helper? No. Patient only requires an assistive device, s uch as a button hook, velcro, or can crimper. OR s/he takes more than reasonable time as s/he dresses the upper body. OR there is a concern for safety when s/he dresses the upper body DRESSING - UPPER BODY - SCORE: 6-RASHAWN DRESSING - LOWER BODY: Elastic waist pants (three steps) Slip-on shoe - Left foot (one step) Slip-on shoe - Right foot (one step) Underwear (three steps) ARTICLES SCORE Total number of steps: 8 DRESSING - LOWER BODY - STEP 1: Does the patient require help from a person or device, or need extra time when dressing below the breanne st? Yes. DRESSING - LOWER BODY - STEP 2: Does the patient require the assistance of a helper? No. Patient requires an assistive device such as a can crimper. OR s/he takes more than reasonable time as s/he dresses the lower body, OR there is a con cern for safety when s/he dresses the lower body DRESSING - LOWER BODY - SCORE: 6-RASHAWN TOILETING: TOILETING - STEP 1: Does the patient require the assistance of a person or device, or need extra time with toileting? Yes . TOILETING - STEP 2: Does the patient require the assistance of a helper? Yes. TOILETING - STEP 3: How much assistance does the patient require from the helper? Only supervision TOILETING - SCORE: 5-SUP BLADDER MANAGEMENT: BLADDER MANAGEMENT - STEP 1: Does the patient control the bladder completely and intentionally without equipment or devices or med ications, and is always continent? No. BLADDER MANAGEMENT - STEP 2: Does the patient require the assistance of a helper? No, patient requires and independently uses an a ssistive device, such as a urinal, bedpan, bedside commode, catheter, absorbent pad, or collecting de vice BLADDER MANAGEMENT - SCORE: 6-RASHAWN BLADDER MANAGEMENT - FREQUENCY OF ACCIDENTS: BLADDER MANAGEMENT(FA) - STEP 1: How many accidents has the patient had during the current shift? 0 BOWEL MANAGEMENT: BOWEL MANAGEMENT - STEP 1: Does the patient control bowels completely and intentionally without equipment devices or medications AND is always continent? No. BOWEL MANAGEMENT - STEP 2: Does the patient require the assistance of a helper? No, patient requires and manages independently a n assistive device such as a bedpan, bedside commode, absorbent pad, incontinent device, or collectin g device BOWEL MANAGEMENT - SCORE: 6-RASHAWN BOWEL MANAGEMENT - FREQUENCY OF ACCIDENTS: BOWEL MANAGEMENT(FA) - STEP 1: How many accidents has the patient had during the current shift? 0 TRANSFERS: BED, CHAIR, WHEELCHAIR: TRANSFERS: BED, CHAIR, WHEELCHAIR - STEP 1: Does the patient require assistance of a person or device, or need extra time with bed, chair, or whe elchair transfers? Yes. TRANSFERS: BED, CHAIR, WHEELCHAIR - STEP 2: Does the patient require the assistance of a helper? Yes. TRANSFERS: BED, CHAIR, WHEELCHAIR - STEP 3: How much assistance does the patient require from the helper? Lifting of the legs TRANSFERS: BED, CHAIR, WHEELCHAIR - STEP 4: How many legs does the patient require the helper to lift? both legs TRANSFERS: BED, CHAIR, WHEELCHAIR - SCORE: 3-MOD TRANSFERS: TOILET: TRANSFERS: TOILET - STEP 1: Does the patient require the assistance of a person or device, or need extra time with toilet transfe rs? Yes. TRANSFERS: TOILET - STEP 2: Does the patient require the assistance of a helper? No. Patient only requires an assistive device mchugh ch as a grab bar or special seat, OR s/he takes more than reasonable time to perform toilet transfers , OR there is a safety concern when s/he performs toilet transfers. TRANSFERS: TOILET - SCORE: 6-RASHAWN TRANSFERS: SHOWER: Activity did not occur on this shift TRANSFERS: SHOWER - SCORE: 0-UNK TRANSFERS: TUB: Activity did not occur on this shift TRANSFERS: TUB - SCORE: 0-UNK LOCOMOTION: WALK: Activity did not occur on this shift LOCOMOTION: WALK - SCORE: 0-UNK LOCOMOTION: WHEELCHAIR: LOCOMOTION: WHEELCHAIR - STEP 1: Does the patient need help to go 150 feet in a wheelchair? Yes. LOCOMOTION: WHEELCHAIR - STEP 2: How much assistance does the patient need from the helper? Only supervision, cuing, or coaxing LOCOMOTION: WHEELCHAIR - SCORE: 5-SUP COMPREHENSION: COMPREHENSION: TYPE: Both COMPREHENSION - STEP 1: Does the patient require help from a person or device, or need extra time to understand complex and a bstract ideas (such as current events, finances, discharge planning, medical issues, relationships, e tc)? No. COMPREHENSION - STEP 2: Does the patient need extra time, require an assistive device (such as glasses for visual comprehensi on or a hearing aid for auditory comprehension) or does s/he have mild difficulty understanding compl ex and abstract information? Yes. COMPREHENSION - SCORE: 6-RASHAWN EXPRESSION EXPRESSION: TYPE: Both EXPRESSION - STEP 1: Does the patient require help from a person or device, or need extra time expressing complex and abst ract ideas (such as current events, finances, discharge planning, medical issues, relationships, etc) ? No. EXPRESSION - STEP 2: Does the patient need extra time, require an assistive device (such as augmentive communication syste m or a communication board), OR does s/he have mild difficulty expressing complex and abstract ideas (including mild dysarthria or mild word-find problems)? Yes. EXPRESSION - SCORE: 6-RASHAWN SOCIAL INTERACTION: SOCIAL INTERACTION - STEP 1: Does the patient require a helper to interact with others in social and therapeutic situations? No. SOCIAL INTERACTION - STEP 2: Does the patient need extra time in social situations, OR does s/he interact with staff, other patien ts, and family members ONLY in structured environments, OR does s/he require medication for social in teraction? Yes, patient needs extra time SOCIAL INTERACTION - SCORE: 6-RASHAWN PROBLEM SOLVING: PROBLEM SOLVING - STEP 1: Does the patient need help from a person or device, or need extra time to solve complex problems such as managing a checking account or confronting interpersonal problems? Yes. PROBLEM SOLVING - STEP 2: Does the patient solve basic routine problems half or more of the time? Yes. PROBLEM SOLVING - STEP 3: How often does the patient need help to solve basic routine problems? Less than 10% of the time PROBLEM SOLVING - SCORE: 5-SUP MEMORY: MEMORY - STEP 1: Does the patient need help from a person or device, or need extra time to remember frequently encount ered people, daily routines, and executing requests? No. MEMORY - STEP 2: Does the patient have slight difficulty recognizing frequently encountered people, daily routines, or executing requests without the need for repetition or using self-initiated or environmental cues to remember? Yes. MEMORY - SCORE: 6-RASHAWN SIGNATURE PANEL: The following modified sections: Eating - Score, Grooming - Score, Bathing - Score, Dressing - Upper Body - Score, Dressing - Lower Body - Score, Toileting - Score, Bladder Management - Score, Bowel Man agement - Score, Transfers: Bed, Chair, Wheelchair - Score, Transfers: Toilet - Score, Transfers: Donna wer - Score, Transfers: Tub - Score, Locomotion: Walk - Score, Locomotion: Wheelchair - Score, Compre hension - Score, Expression - Score, Social Interaction - Score, Problem Solving - Score, Memory - Sc ore were [electronically] signed by Yokasta Dailey C.N.A. on MonSep 18 2018 15:08:24 GMT-0600 ([facility] [place] Standard Time)
--- NOTE | 2018-09-18 17:33 | R.PN ---
ENCOUNTER DATE AND TIME: 09/18/2018 17:28 (AUTOMOTIVE TIRE TECHNICIAN) NAME VINCE SANDERS DATE OF : 1945 DATE OF ADMISSION: 09/11/2018 17:29 (AUTOMOTIVE TIRE TECHNICIAN) Closed Displaced Midcervical Frcature of Right FemurCHIEF COMPLAINT: Right femur fracture SUBJECTIVE: Pt denied any Shortness of Breath. Pt denied any depression. Ambulated 650' with standby assistance using a rolling walker. Hgb 10.3, Glucose 94-170 after decrease of nightly NPH to 51 units. Now on Keflex 500 mg bid for 1/4 days. Ambulated 750' with standby assistance using a rolling walker. VITAL SIGNS Temperature: 97.8 F SBP/DBP: 110/55 Pulse: 66 Resp: 16 MEDICATION ALLERGIES: No Known Drug Allergies (NKDA) ENVIRONMENTAL ALLERGIES: None Known - Substance Allergies None Known - Other Allergies None Known NURSING: - Shower allowing shower - Lab Results blood Sugar Check ACHS - Skin care per protocol PRECAUTIONS: - Posterior Hip Precaution No adduction across midline No external rotation No hip flexion >90 degrees No internal rotation No wheel chair propulsion - Weight Bearing Precaution WBAT right LE ACTIVITIES OOB only with supervision THERAPIES: - Occupational Therapy Evaluate and Treat. - Physical Therapy Evaluate and Treat. PHYSICAL EXAM - Gen Alert and awake Lying in bed No apparent distress Oriented to: person, time, and place - Skin No beakdown No abnormalities - Eyes No abnormalities - ENMT No abnormalities - Neck No abnormalities - CVS RRR - Chest Clear - Abd + bowel sounds - GI Soft Deferred - No abnormalities - Ext Right hip surgical site has good hemostasis. - MSK 4+/5 weakness in right lower extremity. - Neuro 4/5 strength right lower extremity - Psych No abnormalities ASSESSMENT: Pt. is a 73 yo Right-handed white female.On 09/05/[address] [facility] with diagnosis Closed Displaced Midcervical Frcature of Right Femur.Her impairment category is Orth opaedic Disorders 08 - Unilateral Hip Fracture (08.11).Pre-morbidly, Pt. was independent/mod-I in Se lf-Care, Locomotion, Sphincter Control, Transfers Control, Communication, and Social Cognition; and s he had good Sphincter Control.Currently, she has deficits of Balance, Locomotion, Endurance, Safety A wareness, Transfers Control, and Self-Care.Pt. is now referred to [facility] f or acute in-patient rehabilitation in order to maximize patient's functional independence in activiti es of daily living, strength, ROM, and mobility.- Rehab Goal Patient has realistic goal of being discharged at assistance level 6-Josias to reside at Home with Fam alma delia/Relatives. MDM/PLAN: - Physical Therapy Decreased range of motion - to improve, our physical therapists will perform initial evaluation of p t's status upon admission and devise an individualized program for increasing patient's Range of Alex on. Gait dysfunction - to improve, our physical therapists will perform initial evaluation of pt's statu s upon admission and devise an individualized program for Gait Training, and Wheel Chair mobility Inability to transfer - to improve, our physical therapists will perform initial evaluation of pt's status upon admission and devise an individualized program for Bed mobility Need for home safety evaluation - to improve, our physical therapists will perform initial evaluatio n of pt's status upon admission and devise an individualized program for Home Evaluation Need in caregiver upon discharge - to improve, our physical therapists will perform initial evaluati on of pt's status upon admission and devise an individualized program for Caregiver Training New precaution - to improve, our physical therapists will perform initial evaluation of pt's status upon admission and devise an individualized program for Patient precaution education Poor balance - to improve, our physical therapists will perform initial evaluation of pt's status up on admission and devise an individualized program for Balance Training Poor endurance - to improve, our physical therapists will perform initial evaluation of pt's status upon admission and devise an individualized program for Endurance Training Weakness - to improve, our physical therapists will perform initial evaluation of pt's status upon a dmission and devise an individualized program for Aquatic Therapy, Neuromuscular Reeducation, and Str engthening Achieving independence - to improve, our physical therapists will perform initial evaluation of pt's status upon admission and devise an individualized program for Community Reintegration Activities - Occupational Therapy ADL deficits - to improve, our occupation therapists will perform initial evaluation of pt's status upon admission and devise an individualized program for Bathing, Bed mobility, Community Reintegratio n, Cooking, Dressing, Eating, Fine Motor Skills, Grooming, Homemaking, Kitchen Mobility, Laundry, Pat ient Education, Safety Awareness, Splinting - Positioning, Transfers(Toilet, Tub, Shower), and Wheel Chair Management Need for caretaker grounds - to improve, our occupation therapists will perform initial evaluation of pt's status upon admission and devise an individualized program for Caregiver Training Weakness - to improve, our occupation therapists will perform initial evaluation of pt's status upon admission and devise an individualized program for Aquatic Therapy, Balance, Endurance, UE ROM, and UE strengthening - Anterior Hip Precaution No abduction No active extension No adduction across midline No external rotation No hip flexion >90 degrees No internal rotation - Diet - Liquid Texture Continue Regular - Tube Feed Continue N/A - Diet Type Continue Regular - Posterior Hip Precaution No adduction across midline No external rotation No hip flexion >90 degrees No internal rotation No wheel chair propulsion - Lab Results blood Sugar Check ACHS - Weight Bearing Precaution WBAT right LE - Skin care per protocol - Diet - Solid Texture Continue Regular - Shower allowing shower FUNCTIONAL STATUS: UPDATED AT WEEKLY TEAM CONFERENCE - Bladder Same accident frequency: 7-Ind - No accidents in the past 7 days - Bowel Same accident frequency: 7-Ind - No accidents in the past 7 days - Walking Same score based on distance walked: 1(<=50ft) - Wheelchair Same score based on distance traveled: 0(N/A) FUNCTIONAL STATUS: - Self-Care A. Eating Ind B. Grooming Ind C. Bathing sup D. Dressing - Upper sup E. Dressing - Lower modA F. Toileting maxA - Sphincter Control G: Bladder control Ind H: Bowel control Ind - Transfers Control I. Bed/Chair/Wheelchair min-to-modA J. Toilet modA K. Tub/Shower ADNO - Locomotion L. Walk/Wheelchair (C) modA L. Walk/Wheelchair (W) modA M. Stairs ADNO - Communication N. Comprehension (B) Josias O. Expression (B) Josias - Social Cognition P. Social Interaction Josias Q. Problem Solving Josias R. Memory Josias - Endurance Fair - Balance Fair - Safety Awareness Fair CURRENT FUNC. DEFICITS: Balance, Locomotion, Endurance, Safety Awareness, Transfers Control, and Self-Care SIGNATURE PANEL: (AUTOMOTIVE TIRE TECHNICIAN)
[2018-09-18] MEDS: CEPHALEXIN 500 MG CAP PO SCH (19:16)
[2018-09-18] MEDS: GABAPENTIN 300 MG CAP PO SCH (20:02)
[2018-09-18] MEDS: PRIMIDONE 50 MG TAB PO SCH (20:02)
[2018-09-18] MEDS: ATORVASTATIN 10 MG TAB PO SCH (20:02)
--- NOTE | 2018-09-19 01:19 | FAST ---
SHIFT START DATE/TIME: 09/18/2018 19:00 (GAS DISPENSER) SHIFT END DATE/TIME: 09/19/2018 07:00 (GAS DISPENSER) NAME VINCE SANDERS DATE OF : 1945 DATE OF ADMISSION: 09/11/2018 17:29 (GAS DISPENSER) PHONE: AGE: 73 N# [id number] GENDER: Female ENCOUNTER PHYSICIAN: Dr. Delmer Gonzalez M.D. ADMISSION DIAGNOSIS: - Orthopaedic Disorders 08 - Unilateral Hip Fracture (08.11) Closed Displaced Midcervical Frcature of Right Femur. EATING: Activity did not occur on this shift EATING - SCORE: 0-UNK GROOMING: Wash, rinse, and dry hands GROOMING - STEP 1: Does the patient require the assistance of a person or device, or need extra time when grooming? Yes. GROOMING - STEP 2: Does the patient require the assistance of a helper? Yes. GROOMING - STEP 3: How much assistance does the patient require from the helper? Only prior equipment preparation/set up from the helper GROOMING - SCORE: 5-SUP BATHING: Activity did not occur on this shift BATHING - SCORE: 0-UNK DRESSING - UPPER BODY: Patient is not dressing in public clothing ARTICLES SCORE Total number of steps: 0 DRESSING - UPPER BODY - SCORE: 0-UNK DRESSING - LOWER BODY: Patient is not dressing in public clothing ARTICLES SCORE Total number of steps: 0 DRESSING - LOWER BODY - SCORE: 0-UNK TOILETING: TOILETING - STEP 1: Does the patient require the assistance of a person or device, or need extra time with toileting? Yes . TOILETING - STEP 2: Does the patient require the assistance of a helper? Yes. TOILETING - STEP 3: How much assistance does the patient require from the helper? Hands-on assistance from the helper TOILETING - STEP 4: Of the 3 tasks: 1) Adjusting clothing prior to use, 2) Cleansing of perineal area, 3) Adjusting clot juana after use; How many tasks does the patient perform WITHOUT assistance of the helper? Three tasks with steadying assistance from the helper TOILETING - SCORE: 4-MIN BLADDER MANAGEMENT: [place] removes incontinent device (Depends, pull ups, etc.); cleans the patient after accident / inco ntinent episode; and, applies new incontinent device. BLADDER MANAGEMENT - SCORE: 1-DEP BOWEL MANAGEMENT: Activity did not occur on this shift BOWEL MANAGEMENT - SCORE: 7-IND TRANSFERS: BED, CHAIR, WHEELCHAIR: TRANSFERS: BED, CHAIR, WHEELCHAIR - STEP 1: Does the patient require assistance of a person or device, or need extra time with bed, chair, or whe elchair transfers? Yes. TRANSFERS: BED, CHAIR, WHEELCHAIR - STEP 2: Does the patient require the assistance of a helper? Yes. TRANSFERS: BED, CHAIR, WHEELCHAIR - STEP 3: How much assistance does the patient require from the helper? Lifting of the legs TRANSFERS: BED, CHAIR, WHEELCHAIR - STEP 4: How many legs does the patient require the helper to lift? both legs TRANSFERS: BED, CHAIR, WHEELCHAIR - SCORE: 3-MOD TRANSFERS: TOILET: TRANSFERS: TOILET - STEP 1: Does the patient require the assistance of a person or device, or need extra time with toilet transfe rs? Yes. TRANSFERS: TOILET - STEP 2: Does the patient require the assistance of a helper? Yes. TRANSFERS: TOILET - STEP 3: How much assistance does the patient require from the helper? Only supervision, cuing, coaxing, OR he lp to set out transfer equipment or to lock brakes and/or lift foot rests TRANSFERS: TOILET - SCORE: 5-SUP TRANSFERS: SHOWER: Activity did not occur on this shift TRANSFERS: SHOWER - SCORE: 0-UNK TRANSFERS: TUB: Activity did not occur on this shift TRANSFERS: TUB - SCORE: 0-UNK LOCOMOTION: WALK: Activity did not occur on this shift LOCOMOTION: WALK - SCORE: 0-UNK LOCOMOTION: WHEELCHAIR: Activity did not occur on this shift LOCOMOTION: WHEELCHAIR - SCORE: 0-UNK COMPREHENSION: COMPREHENSION: TYPE: Both COMPREHENSION - STEP 1: Does the patient require help from a person or device, or need extra time to understand complex and a bstract ideas (such as current events, finances, discharge planning, medical issues, relationships, e tc)? No. COMPREHENSION - STEP 2: Does the patient need extra time, require an assistive device (such as glasses for visual comprehensi on or a hearing aid for auditory comprehension) or does s/he have mild difficulty understanding compl ex and abstract information? Yes. COMPREHENSION - SCORE: 6-RASHAWN EXPRESSION EXPRESSION: TYPE: Both EXPRESSION - STEP 1: Does the patient require help from a person or device, or need extra time expressing complex and abst ract ideas (such as current events, finances, discharge planning, medical issues, relationships, etc) ? No. EXPRESSION - STEP 2: Does the patient need extra time, require an assistive device (such as augmentive communication syste m or a communication board), OR does s/he have mild difficulty expressing complex and abstract ideas (including mild dysarthria or mild word-find problems)? Yes. EXPRESSION - SCORE: 6-RASHAWN SOCIAL INTERACTION: SOCIAL INTERACTION - STEP 1: Does the patient require a helper to interact with others in social and therapeutic situations? No. SOCIAL INTERACTION - STEP 2: Does the patient need extra time in social situations, OR does s/he interact with staff, other patien ts, and family members ONLY in structured environments, OR does s/he require medication for social in teraction? Yes, patient needs extra time SOCIAL INTERACTION - SCORE: 6-RASHAWN PROBLEM SOLVING: PROBLEM SOLVING - STEP 1: Does the patient need help from a person or device, or need extra time to solve complex problems such as managing a checking account or confronting interpersonal problems? Yes. PROBLEM SOLVING - STEP 2: Does the patient solve basic routine problems half or more of the time? Yes. PROBLEM SOLVING - STEP 3: How often does the patient need help to solve basic routine problems? 10%-24% of the time PROBLEM SOLVING - SCORE: 4-MIN MEMORY: MEMORY - STEP 1: Does the patient need help from a person or device, or need extra time to remember frequently encount ered people, daily routines, and executing requests? No. MEMORY - STEP 2: Does the patient have slight difficulty recognizing frequently encountered people, daily routines, or executing requests without the need for repetition or using self-initiated or environmental cues to remember? Yes. MEMORY - SCORE: 6-RASHAWN SIGNATURE PANEL: The following modified sections: Eating - Score, Grooming - Score, Dressing - Upper Body - Score, Brent ssing - Lower Body - Score, Toileting - Score, Bladder Management - Score, Bowel Management - Score, Transfers: Bed, Chair, Wheelchair - Score, Transfers: Toilet - Score, Transfers: Shower - Score, St sfers: Tub - Score, Locomotion: Walk - Score, Locomotion: Wheelchair - Score, Comprehension - Score, Expression - Score, Social Interaction - Score, Problem Solving - Score, Memory - Score were [electro nically] signed by Karon Mata CNA on MonSep 19 2018 01:18:33 GMT-0600 (Central Standard Time)
[2018-09-19] MEDS: HYDROCODONE/APAP 5/325 MG TAB PO PRN ×4 (04:28→23:36)
[2018-09-19] MEDS: LEVOTHYROXINE SOD 0.1 MG TAB PO SCH (05:18)
[2018-09-19] MEDS: NPH (HUMAN) 100 UNITS/ML INSULIN SQ SCH ×2 (07:15→17:00)
[2018-09-19] MEDS: ENOXAPARIN 30 MG/0.3 ML SQ SCH (07:15)
[2018-09-19] MEDS: INSULIN -REGULAR HUMAN 50 UNIT/0.5 ML ML SQ SCH ×4 (07:30→20:56)
[2018-09-19] MEDS: METOPROLOL TAR 25 MG TAB PO SCH ×2 (08:00→19:28)
[2018-09-19] MEDS: GALANTAMINE 4 MG TAB PO SCH (08:17)
[2018-09-19] MEDS: DIGOXIN 0.125 MG TABLET PO SCH (08:17)
[2018-09-19] MEDS: CRANBERRY FRUIT EXTRACT 200 MG CAP PO SCH ×2 (08:17→19:28)
[2018-09-19] MEDS: CLOPIDOGREL 75 MG TABLET PO SCH (08:18)
[2018-09-19] MEDS: FERROUS SULFATE 325 MG TAB PO SCH (08:18)
[2018-09-19] MEDS: FE SULF/FA/VIT B COMP & C TAB PO SCH (08:18)
[2018-09-19] MEDS: VENLAFAXINE HCL XR 75 MG CAP PO SCH ×2 (08:18→19:27)
[2018-09-19] MEDS: SPIRONOLACTONE 25 MG TABLET PO SCH (08:18)
[2018-09-19] MEDS: PIOGLITAZONE 15 MG TAB PO SCH (08:18)
[2018-09-19] MEDS: MAGNESIUM OXIDE 400 MG TAB PO SCH ×2 (08:19→19:27)
[2018-09-19] MEDS: BUMETANIDE 1 MG TABLET PO SCH (08:19)
[2018-09-19] MEDS: METFORMIN HCL 500 MG TAB PO SCH ×2 (08:20→18:29)
[2018-09-19] MEDS: BUPROPION HCL XL 150 MG TAB PO SCH (08:20)
[2018-09-19] MEDS: MULTIVITAMIN TAB PO SCH (08:21)
[2018-09-19] MEDS: ASPIRIN EC 81 MG TAB PO SCH (08:21)
[2018-09-19] MEDS: DOCOSAHEXANOIC AC/EPA 1000 MG PO SCH ×2 (08:21→19:27)
[2018-09-19] MEDS: CEPHALEXIN 500 MG CAP PO SCH ×2 (08:21→19:27)
[2018-09-19] MEDS: PROMOD 30 ML DOSE PO SCH ×2 (08:22→19:27)
[2018-09-19] MEDS: LIDOCAINE 5% PATCH TOP SCH (12:01)
--- NOTE | 2018-09-19 13:12 | FAST ---
SHIFT START DATE/TIME: 09/19/2018 07:00 ([employer]PARTMENT) SHIFT END DATE/TIME: 09/19/2018 19:00 ([employer] DEPARTMENT) NAME VINCE SANDERS DATE OF : 1945 DATE OF ADMISSION: 09/11/2018 17:29 ([employer] DEPARTMENT) PHONE: AGE: 73 SSN# [id number] GENDER: Female ENCOUNTER PHYSICIAN: Dr. Delmer Gonzalez M.D. ADMISSION DIAGNOSIS: - Orthopaedic Disorders 08 - Unilateral Hip Fracture (08.11) Closed Displaced Midcervical Frcature of Right Femur. EATING: EATING - STEP 1: Does the patient require the assistance of a person or device, or need extra time when eating? Yes. EATING - STEP 2: Does the patient require the assistance of a helper? Yes. EATING - STEP 3: Does the patient perform half or more of the eating tasks? Yes. EATING - STEP 4: Does the patient need only supervision, cuing, coaxing OR help to apply an orthosis OR help to cut fo od, open containers, pour liquids, or butter bread? Yes. EATING - SCORE: 5-SUP GROOMING: Comb/brush hair Oral care GROOMING - STEP 1: Does the patient require the assistance of a person or device, or need extra time when grooming? Yes. GROOMING - STEP 2: Does the patient require the assistance of a helper? No. The patient only requires an assistive devic e, OR takes more than reasonable time to groom, OR there is a concern for safety as the patient groom s GROOMING - SCORE: 6-RASHAWN BATHING: Activity did not occur on this shift BATHING - SCORE: 0-UNK DRESSING - UPPER BODY: Activity did not occur on this shift ARTICLES SCORE Total number of steps: 0 DRESSING - UPPER BODY - SCORE: 0-UNK DRESSING - LOWER BODY: Activity did not occur on this shift ARTICLES SCORE Total number of steps: 0 DRESSING - LOWER BODY - SCORE: 0-UNK TOILETING: TOILETING - STEP 1: Does the patient require the assistance of a person or device, or need extra time with toileting? Yes . TOILETING - STEP 2: Does the patient require the assistance of a helper? Yes. TOILETING - STEP 3: How much assistance does the patient require from the helper? Only supervision TOILETING - SCORE: 5-SUP BLADDER MANAGEMENT: BLADDER MANAGEMENT - STEP 1: Does the patient control the bladder completely and intentionally without equipment or devices or med ications, and is always continent? No. BLADDER MANAGEMENT - STEP 2: Does the patient require the assistance of a helper? No, patient requires and independently uses an a ssistive device, such as a urinal, bedpan, bedside commode, catheter, absorbent pad, or collecting de vice BLADDER MANAGEMENT - SCORE: 6-RASHAWN BOWEL MANAGEMENT: Activity did not occur on this shift BOWEL MANAGEMENT - SCORE: 7-IND TRANSFERS: BED, CHAIR, WHEELCHAIR: TRANSFERS: BED, CHAIR, WHEELCHAIR - STEP 1: Does the patient require assistance of a person or device, or need extra time with bed, chair, or whe elchair transfers? Yes. TRANSFERS: BED, CHAIR, WHEELCHAIR - STEP 2: Does the patient require the assistance of a helper? Yes. TRANSFERS: BED, CHAIR, WHEELCHAIR - STEP 3: How much assistance does the patient require from the helper? Only supervision TRANSFERS: BED, CHAIR, WHEELCHAIR - SCORE: 5-SUP TRANSFERS: TOILET: TRANSFERS: TOILET - STEP 1: Does the patient require the assistance of a person or device, or need extra time with toilet transfe rs? Yes. TRANSFERS: TOILET - STEP 2: Does the patient require the assistance of a helper? Yes. TRANSFERS: TOILET - STEP 3: How much assistance does the patient require from the helper? Only supervision, cuing, coaxing, OR he lp to set out transfer equipment or to lock brakes and/or lift foot rests TRANSFERS: TOILET - SCORE: 5-SUP TRANSFERS: SHOWER: Activity did not occur on this shift TRANSFERS: SHOWER - SCORE: 0-UNK TRANSFERS: TUB: Activity did not occur on this shift TRANSFERS: TUB - SCORE: 0-UNK LOCOMOTION: WALK: Activity did not occur on this shift LOCOMOTION: WALK - SCORE: 0-UNK LOCOMOTION: WHEELCHAIR: Activity did not occur on this shift LOCOMOTION: WHEELCHAIR - SCORE: 0-UNK COMPREHENSION: COMPREHENSION: TYPE: Both COMPREHENSION - STEP 1: Does the patient require help from a person or device, or need extra time to understand complex and a bstract ideas (such as current events, finances, discharge planning, medical issues, relationships, e tc)? No. COMPREHENSION - STEP 2: Does the patient need extra time, require an assistive device (such as glasses for visual comprehensi on or a hearing aid for auditory comprehension) or does s/he have mild difficulty understanding compl ex and abstract information? Yes. COMPREHENSION - SCORE: 6-RASHAWN EXPRESSION EXPRESSION: TYPE: Both EXPRESSION - STEP 1: Does the patient require help from a person or device, or need extra time expressing complex and abst ract ideas (such as current events, finances, discharge planning, medical issues, relationships, etc) ? No. EXPRESSION - STEP 2: Does the patient need extra time, require an assistive device (such as augmentive communication syste m or a communication board), OR does s/he have mild difficulty expressing complex and abstract ideas (including mild dysarthria or mild word-find problems)? Yes. EXPRESSION - SCORE: 6-RASHAWN SOCIAL INTERACTION: SOCIAL INTERACTION - STEP 1: Does the patient require a helper to interact with others in social and therapeutic situations? No. SOCIAL INTERACTION - STEP 2: Does the patient need extra time in social situations, OR does s/he interact with staff, other patien ts, and family members ONLY in structured environments, OR does s/he require medication for social in teraction? Yes, patient needs extra time SOCIAL INTERACTION - SCORE: 6-RASHAWN PROBLEM SOLVING: PROBLEM SOLVING - STEP 1: Does the patient need help from a person or device, or need extra time to solve complex problems such as managing a checking account or confronting interpersonal problems? No. PROBLEM SOLVING - STEP 2: Does the patient require extra time to make decisions or solve problems, OR does s/he have slight dif ficulty reading, initiating, or self-correcting in unfamiliar situations? Yes, patient needs extra ti me. PROBLEM SOLVING - SCORE: 6-RASHAWN MEMORY: MEMORY - STEP 1: Does the patient need help from a person or device, or need extra time to remember frequently encount ered people, daily routines, and executing requests? No. MEMORY - STEP 2: Does the patient have slight difficulty recognizing frequently encountered people, daily routines, or executing requests without the need for repetition or using self-initiated or environmental cues to remember? Yes. MEMORY - SCORE: 6-RASHAWN SIGNATURE PANEL: The following modified sections: Eating - Score, Grooming - Score, Bathing - Score, Dressing - Upper Body - Score, Dressing - Lower Body - Score, Toileting - Score, Bladder Management - Score, Bowel Man agement - Score, Transfers: Bed, Chair, Wheelchair - Score, Transfers: Toilet - Score, Transfers: Donna wer - Score, Transfers: Tub - Score, Locomotion: Walk - Score, Locomotion: Wheelchair - Score, Compre hension - Score, Expression - Score, Social Interaction - Score, Problem Solving - Score, Memory - Sc ore were [electronically] signed by Elmer Dias on MonSep 19 2018 13:11:38 GMT-0600 (Central Standard Time)
--- NOTE | 2018-09-19 16:35 | R.PN ---
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 Pt denied any depression. Ambulated 650' with standby assistance using a rolling walker. Hgb 10.3, Glucose 143 after decrease of nightly NPH to 51 units. Now on Keflex 500 mg bid for 2/4 day s. Ambulated 750' with standby assistance using a rolling walker. VITAL SIGNS Temperature: 97.8 F SBP/DBP: 109/55 Pulse: 67 Resp: 15 MEDICATION ALLERGIES: No Known Drug Allergies (NKDA) ENVIRONMENTAL ALLERGIES: None Known - Substance Allergies None Known - Other Allergies None Known NURSING: - Shower allowing shower - Lab Results blood Sugar Check ACHS - Skin care per protocol PRECAUTIONS: - Posterior Hip Precaution No adduction across midline No external rotation No hip flexion >90 degrees No internal rotation No wheel chair propulsion - Weight Bearing Precaution WBAT right LE ACTIVITIES OOB only with supervision THERAPIES: - Occupational Therapy Evaluate and Treat. - Physical Therapy Evaluate and Treat. PHYSICAL EXAM - Gen Alert and awake Lying in bed No apparent distress Oriented to: person, time, and place - Skin No beakdown No abnormalities - Eyes No abnormalities - ENMT No abnormalities - Neck No abnormalities - CVS RRR - Chest Clear - Abd + bowel sounds - GI Soft Deferred - No abnormalities - Ext Right hip surgical site has good hemostasis. - MSK 4+/5 weakness in right lower extremity. - Neuro 4/5 strength right lower extremity - Psych No abnormalities ASSESSMENT: Pt. is a 73 yo Right-handed white female.On 09/05/2018 she was admitted [facility] with diagnosis Closed Displaced Midcervical Frcature of Right Femur.Her impairment category is Orth opaedic Disorders 08 - Unilateral Hip Fracture (08.11).Pre-morbidly, Pt. was independent/mod-I in Se lf-Care, Locomotion, Sphincter Control, Transfers Control, Communication, and Social Cognition; and s he had good Sphincter Control.Currently, she has deficits of Balance, Locomotion, Endurance, Safety A wareness, Transfers Control, and Self-Care.Pt. is now referred to [facility] f or acute in-patient rehabilitation in order to maximize patient's functional independence in activiti es of daily living, strength, ROM, and mobility.- Rehab Goal Patient has realistic goal of being discharged at assistance level 6-Josias to reside at Home with Fam alma delia/Relatives. MDM/PLAN: - Physical Therapy Decreased range of motion - to improve, our physical therapists will perform initial evaluation of p t's status upon admission and devise an individualized program for increasing patient's Range of Alex on. Gait dysfunction - to improve, our physical therapists will perform initial evaluation of pt's statu s upon admission and devise an individualized program for Gait Training, and Wheel Chair mobility Inability to transfer - to improve, our physical therapists will perform initial evaluation of pt's status upon admission and devise an individualized program for Bed mobility Need for home safety evaluation - to improve, our physical therapists will perform initial evaluatio n of pt's status upon admission and devise an individualized program for Home Evaluation Need in caregiver upon discharge - to improve, our physical therapists will perform initial evaluati on of pt's status upon admission and devise an individualized program for Caregiver Training New precaution - to improve, our physical therapists will perform initial evaluation of pt's status upon admission and devise an individualized program for Patient precaution education Poor balance - to improve, our physical therapists will perform initial evaluation of pt's status up on admission and devise an individualized program for Balance Training Poor endurance - to improve, our physical therapists will perform initial evaluation of pt's status upon admission and devise an individualized program for Endurance Training Weakness - to improve, our physical therapists will perform initial evaluation of pt's status upon a dmission and devise an individualized program for Aquatic Therapy, Neuromuscular Reeducation, and Str engthening Achieving independence - to improve, our physical therapists will perform initial evaluation of pt's status upon admission and devise an individualized program for Community Reintegration Activities - Occupational Therapy ADL deficits - to improve, our occupation therapists will perform initial evaluation of pt's status upon admission and devise an individualized program for Bathing, Bed mobility, Community Reintegratio n, Cooking, Dressing, Eating, Fine Motor Skills, Grooming, Homemaking, Kitchen Mobility, Laundry, Pat ient Education, Safety Awareness, Splinting - Positioning, Transfers(Toilet, Tub, Shower), and Wheel Chair Management Need for personal care aid - to improve, our occupation therapists will perform initial evaluation of pt's status upon admission and devise an individualized program for Caregiver Training Weakness - to improve, our occupation therapists will perform initial evaluation of pt's status upon admission and devise an individualized program for Aquatic Therapy, Balance, Endurance, UE ROM, and UE strengthening - Anterior Hip Precaution No abduction No active extension No adduction across midline No external rotation No hip flexion >90 degrees No internal rotation - Diet - Liquid Texture Continue Regular - Tube Feed Continue N/A - Diet Type Continue Regular - Posterior Hip Precaution No adduction across midline No external rotation No hip flexion >90 degrees No internal rotation No wheel chair propulsion - Lab Results blood Sugar Check ACHS - Weight Bearing Precaution WBAT right LE - Skin care per protocol - Diet - Solid Texture Continue Regular - Shower allowing shower FUNCTIONAL STATUS: UPDATED AT WEEKLY TEAM CONFERENCE - Bladder Same accident frequency: 7-Ind - No accidents in the past 7 days - Bowel Same accident frequency: 7-Ind - No accidents in the past 7 days - Walking Same score based on distance walked: 1(<=50ft) - Wheelchair Same score based on distance traveled: 0(N/A) FUNCTIONAL STATUS: - Self-Care A. Eating Ind B. Grooming Ind C. Bathing sup D. Dressing - Upper sup E. Dressing - Lower modA F. Toileting maxA - Sphincter Control G: Bladder control Ind H: Bowel control Ind - Transfers Control I. Bed/Chair/Wheelchair min-to-modA J. Toilet modA K. Tub/Shower ADNO - Locomotion L. Walk/Wheelchair (C) modA L. Walk/Wheelchair (W) modA M. Stairs ADNO - Communication N. Comprehension (B) Josias O. Expression (B) Josias - Social Cognition P. Social Interaction Josias Q. Problem Solving Josias R. Memory Josias - Endurance Fair - Balance Fair - Safety Awareness Fair CURRENT FUNC. 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
[2018-09-19] MEDS: PRIMIDONE 50 MG TAB PO SCH (20:57)
[2018-09-19] MEDS: ATORVASTATIN 10 MG TAB PO SCH (20:57)
[2018-09-19] MEDS: GABAPENTIN 300 MG CAP PO SCH (20:57)
[2018-09-20] MEDS: LEVOTHYROXINE SOD 0.1 MG TAB PO SCH (05:01)
--- NOTE | 2018-09-20 06:28 | FAST ---
SHIFT START DATE/TIME: 09/19/2018 19:00 ([employer]) SHIFT END DATE/TIME: 09/20/2018 07:00 ([employer] P[employer]) NAME VINCE SANDERS DATE OF : 1945 DATE OF ADMISSION: 09/11/2018 17:29 ([employer] PILOT) PHONE: AGE: 73 SSN# [id number] GENDER: Female ENCOUNTER PHYSICIAN: Dr. Delmer Gonzalez M.D. ADMISSION DIAGNOSIS: - Orthopaedic Disorders 08 - Unilateral Hip Fracture (08.11) Closed Displaced Midcervical Frcature of Right Femur. EATING: Activity did not occur on this shift EATING - SCORE: 0-UNK GROOMING: Activity did not occur on this shift GROOMING - SCORE: 0-UNK BATHING: Activity did not occur on this shift BATHING - SCORE: 0-UNK DRESSING - UPPER BODY: Activity did not occur on this shift ARTICLES SCORE Total number of steps: 0 DRESSING - UPPER BODY - SCORE: 0-UNK DRESSING - LOWER BODY: Activity did not occur on this shift ARTICLES SCORE Total number of steps: 0 DRESSING - LOWER BODY - SCORE: 0-UNK TOILETING: TOILETING - STEP 1: Does the patient require the assistance of a person or device, or need extra time with toileting? Yes . TOILETING - STEP 2: Does the patient require the assistance of a helper? Yes. TOILETING - STEP 3: How much assistance does the patient require from the helper? Only supervision TOILETING - SCORE: 5-SUP BLADDER MANAGEMENT: Patient urinates on floor while walking to bathroom and [place] cleans up accident. BLADDER MANAGEMENT - SCORE: 1-DEP BLADDER MANAGEMENT - FREQUENCY OF ACCIDENTS: BLADDER MANAGEMENT(FA) - STEP 1: How many accidents has the patient had during the current shift? 4 BOWEL MANAGEMENT: Activity did not occur on this shift BOWEL MANAGEMENT - SCORE: 7-IND TRANSFERS: BED, CHAIR, WHEELCHAIR: Activity did not occur on this shift TRANSFERS: BED, CHAIR, WHEELCHAIR - SCORE: 0-UNK TRANSFERS: TOILET: TRANSFERS: TOILET - STEP 1: Does the patient require the assistance of a person or device, or need extra time with toilet transfe rs? Yes. TRANSFERS: TOILET - STEP 2: Does the patient require the assistance of a helper? Yes. TRANSFERS: TOILET - STEP 3: How much assistance does the patient require from the helper? Only supervision, cuing, coaxing, OR he lp to set out transfer equipment or to lock brakes and/or lift foot rests TRANSFERS: TOILET - SCORE: 5-SUP TRANSFERS: SHOWER: Activity did not occur on this shift TRANSFERS: SHOWER - SCORE: 0-UNK TRANSFERS: TUB: Activity did not occur on this shift TRANSFERS: TUB - SCORE: 0-UNK LOCOMOTION: WALK: Activity did not occur on this shift LOCOMOTION: WALK - SCORE: 0-UNK LOCOMOTION: WHEELCHAIR: Activity did not occur on this shift LOCOMOTION: WHEELCHAIR - SCORE: 0-UNK COMPREHENSION: COMPREHENSION: TYPE: Both COMPREHENSION - STEP 1: Does the patient require help from a person or device, or need extra time to understand complex and a bstract ideas (such as current events, finances, discharge planning, medical issues, relationships, e tc)? No. COMPREHENSION - STEP 2: Does the patient need extra time, require an assistive device (such as glasses for visual comprehensi on or a hearing aid for auditory comprehension) or does s/he have mild difficulty understanding compl ex and abstract information? Yes. COMPREHENSION - SCORE: 6-RASHAWN EXPRESSION EXPRESSION: TYPE: Both EXPRESSION - STEP 1: Does the patient require help from a person or device, or need extra time expressing complex and abst ract ideas (such as current events, finances, discharge planning, medical issues, relationships, etc) ? No. EXPRESSION - STEP 2: Does the patient need extra time, require an assistive device (such as augmentive communication syste m or a communication board), OR does s/he have mild difficulty expressing complex and abstract ideas (including mild dysarthria or mild word-find problems)? No. EXPRESSION - SCORE: 7-IND SOCIAL INTERACTION: SOCIAL INTERACTION - STEP 1: Does the patient require a helper to interact with others in social and therapeutic situations? No. SOCIAL INTERACTION - STEP 2: Does the patient need extra time in social situations, OR does s/he interact with staff, other patien ts, and family members ONLY in structured environments, OR does s/he require medication for social in teraction? No. SOCIAL INTERACTION - SCORE: 7-IND PROBLEM SOLVING: PROBLEM SOLVING - STEP 1: Does the patient need help from a person or device, or need extra time to solve complex problems such as managing a checking account or confronting interpersonal problems? No. PROBLEM SOLVING - STEP 2: Does the patient require extra time to make decisions or solve problems, OR does s/he have slight dif ficulty reading, initiating, or self-correcting in unfamiliar situations? No. PROBLEM SOLVING - SCORE: 7-IND MEMORY: MEMORY - STEP 1: Does the patient need help from a person or device, or need extra time to remember frequently encount ered people, daily routines, and executing requests? No. MEMORY - STEP 2: Does the patient have slight difficulty recognizing frequently encountered people, daily routines, or executing requests without the need for repetition or using self-initiated or environmental cues to remember? No. MEMORY - SCORE: 7-IND SIGNATURE PANEL: The following modified sections: Eating - Score, Grooming - Score, Bathing - Score, Dressing - Upper Body - Score, Dressing - Lower Body - Score, Toileting - Score, Bladder Management - Score, Bowel Man agement - Score, Transfers: Bed, Chair, Wheelchair - Score, Transfers: Toilet - Score, Transfers: Donna wer - Score, Transfers: Tub - Score, Locomotion: Walk - Score, Locomotion: Wheelchair - Score, Compre hension - Score, Expression - Score, Social Interaction - Score, Problem Solving - Score, Memory - Sc ore were [electronically] signed by Diana Ernst CNA on MonSep 20 2018 02:29:31 T-0600 ([facility])
[2018-09-20 06:36] LABS: Albumin 2.9 g/dL (3.4-5.0); Potassium 4.3 mmol/L (3.5-5.1); Prealbumin 20.9 mg/dL (20-40)
[2018-09-20 06:40] LABS: Absolute Lymphocytes (CBC) 2.2 K/uL (0.7-4.9); Absolute Monocytes 0.6 K/uL (0.1-1.3); Basophils % 0.5 % (0-1.3); Eosinophils % 3.5 % (0-4.4); Hematocrit 29.8 % (36.0-45.0); Lymphocytes % 27.4 % (15.3-44.8); MPV 7.6 fL (7.6-11.3); Monocytes % 6.9 % (3.3-12.3); RBC Red Blood Cell Count 3.31 M/uL (3.86-4.86)
[2018-09-20] MEDS: ENOXAPARIN 30 MG/0.3 ML SQ SCH (07:22)
[2018-09-20] MEDS: INSULIN -REGULAR HUMAN 50 UNIT/0.5 ML ML SQ SCH ×4 (07:30→20:05)
[2018-09-20] MEDS: NPH (HUMAN) 100 UNITS/ML INSULIN SQ SCH ×2 (08:15→16:52)
[2018-09-20] MEDS: GALANTAMINE 4 MG TAB PO SCH (08:16)
[2018-09-20] MEDS: CEPHALEXIN 500 MG CAP PO SCH ×2 (08:17→19:37)
[2018-09-20] MEDS: PROMOD 30 ML DOSE PO SCH ×2 (08:17→19:37)
[2018-09-20] MEDS: SPIRONOLACTONE 25 MG TABLET PO SCH (08:17)
[2018-09-20] MEDS: MULTIVITAMIN TAB PO SCH (08:18)
[2018-09-20] MEDS: CRANBERRY FRUIT EXTRACT 200 MG CAP PO SCH ×2 (08:18→19:37)
[2018-09-20] MEDS: ASPIRIN EC 81 MG TAB PO SCH (08:18)
[2018-09-20] MEDS: FE SULF/FA/VIT B COMP & C TAB PO SCH (08:19)
[2018-09-20] MEDS: DIGOXIN 0.125 MG TABLET PO SCH (08:19)
[2018-09-20] MEDS: DOCOSAHEXANOIC AC/EPA 1000 MG PO SCH ×2 (08:19→19:38)
[2018-09-20] MEDS: METOPROLOL TAR 25 MG TAB PO SCH ×2 (08:19→19:38)
[2018-09-20] MEDS: METFORMIN HCL 500 MG TAB PO SCH ×2 (08:19→16:52)
[2018-09-20] MEDS: MAGNESIUM OXIDE 400 MG TAB PO SCH ×2 (08:19→19:37)
[2018-09-20] MEDS: BUMETANIDE 1 MG TABLET PO SCH (08:20)
[2018-09-20] MEDS: BUPROPION HCL XL 150 MG TAB PO SCH (08:20)
[2018-09-20] MEDS: PIOGLITAZONE 15 MG TAB PO SCH (08:20)
[2018-09-20] MEDS: VENLAFAXINE HCL XR 75 MG CAP PO SCH ×2 (08:21→19:37)
[2018-09-20] MEDS: HYDROCODONE/APAP 5/325 MG TAB PO PRN ×3 (08:21→19:36)
[2018-09-20] MEDS: FERROUS SULFATE 325 MG TAB PO SCH (08:21)
[2018-09-20] MEDS: LIDOCAINE 5% PATCH TOP SCH (08:22)
[2018-09-20] MEDS: CLOPIDOGREL 75 MG TABLET PO SCH (08:22)
--- NOTE | 2018-09-20 14:45 | FAST ---
SHIFT START DATE/TIME: 09/20/2018 07:00 (HIV PREVENTION SPECIALIST) SHIFT END DATE/TIME: 09/20/2018 19:00 (HIV PREVENTION SPECIALIST) NAME VINCE SANDERS DATE OF : 1945 DATE OF ADMISSION: 09/11/2018 17:29 (HIV PREVENTION SPECIALIST) PHONE: AGE: 73 SSN# [id number] GENDER: Female ENCOUNTER PHYSICIAN: Dr. Delmer Gonzalez M.D. ADMISSION DIAGNOSIS: - Orthopaedic Disorders 08 - Unilateral Hip Fracture (08.11) Closed Displaced Midcervical Frcature of Right Femur. EATING: EATING - STEP 1: Does the patient require the assistance of a person or device, or need extra time when eating? Yes. EATING - STEP 2: Does the patient require the assistance of a helper? No, patient only requires an assistive device, O R s/he takes more than reasonable time to eat, OR there is a safety concern, OR s/he requires modifie d food consistency EATING - SCORE: 6-RASHAWN GROOMING: Comb/brush hair Oral care Wash, rinse, and dry face Wash, rinse, and dry hands GROOMING - STEP 1: Does the patient require the assistance of a person or device, or need extra time when grooming? Yes. GROOMING - STEP 2: Does the patient require the assistance of a helper? No. The patient only requires an assistive devic e, OR takes more than reasonable time to groom, OR there is a concern for safety as the patient groom s GROOMING - SCORE: 6-RASHAWN BATHING: Activity did not occur on this shift BATHING - SCORE: 0-UNK DRESSING - UPPER BODY: Bra (three steps) T-shirt/pullover shirt (four steps) ARTICLES SCORE Total number of steps: 7 DRESSING - UPPER BODY - STEP 1: Does the patient require help from a person or device, or need extra time when dressing above the breanne st? Yes. DRESSING - UPPER BODY - STEP 2: Does the patient require the assistance of a helper? No. Patient only requires an assistive device, s uch as a button hook, velcro, or box office clerk. OR s/he takes more than reasonable time as s/he dresses the upper body. OR there is a concern for safety when s/he dresses the upper body DRESSING - UPPER BODY - SCORE: 6-RASHAWN DRESSING - LOWER BODY: ARTICLES SCORE Total number of steps: 5 DRESSING - LOWER BODY - STEP 1: Does the patient require help from a person or device, or need extra time when dressing below the breanne st? Yes. DRESSING - LOWER BODY - STEP 2: Does the patient require the assistance of a helper? No. Patient requires an assistive device such as a box office clerk. OR s/he takes more than reasonable time as s/he dresses the lower body, OR there is a con cern for safety when s/he dresses the lower body DRESSING - LOWER BODY - SCORE: 6-RASHAWN TOILETING: TOILETING - STEP 1: Does the patient require the assistance of a person or device, or need extra time with toileting? Yes . TOILETING - STEP 2: Does the patient require the assistance of a helper? No. TOILETING - SCORE: 6-RASHAWN BLADDER MANAGEMENT: BLADDER MANAGEMENT - STEP 1: Does the patient control the bladder completely and intentionally without equipment or devices or med ications, and is always continent? No. BLADDER MANAGEMENT - STEP 2: Does the patient require the assistance of a helper? No, patient requires and independently uses an a ssistive device, such as a urinal, bedpan, bedside commode, catheter, absorbent pad, or collecting de vice BLADDER MANAGEMENT - SCORE: 6-RASHAWN BOWEL MANAGEMENT: Activity did not occur on this shift BOWEL MANAGEMENT - SCORE: 7-IND TRANSFERS: BED, CHAIR, WHEELCHAIR: TRANSFERS: BED, CHAIR, WHEELCHAIR - STEP 1: Does the patient require assistance of a person or device, or need extra time with bed, chair, or whe elchair transfers? Yes. TRANSFERS: BED, CHAIR, WHEELCHAIR - STEP 2: Does the patient require the assistance of a helper? No. Patient only requires an assistive device fo r bed, chair, wheelchair transfers such as a sliding board, grab bar, or brace, OR s/he takes more th an reasonable time, OR there is a safety concern when s/he performs the transfers TRANSFERS: BED, CHAIR, WHEELCHAIR - SCORE: 6-RASHAWN TRANSFERS: TOILET: TRANSFERS: TOILET - STEP 1: Does the patient require the assistance of a person or device, or need extra time with toilet transfe rs? Yes. TRANSFERS: TOILET - STEP 2: Does the patient require the assistance of a helper? No. Patient only requires an assistive device mchugh ch as a grab bar or special seat, OR s/he takes more than reasonable time to perform toilet transfers , OR there is a safety concern when s/he performs toilet transfers. TRANSFERS: TOILET - SCORE: 6-RASHAWN TRANSFERS: SHOWER: Activity did not occur on this shift TRANSFERS: SHOWER - SCORE: 0-UNK TRANSFERS: TUB: Activity did not occur on this shift TRANSFERS: TUB - SCORE: 0-UNK LOCOMOTION: WALK: Activity did not occur on this shift LOCOMOTION: WALK - SCORE: 0-UNK LOCOMOTION: WHEELCHAIR: Activity did not occur on this shift LOCOMOTION: WHEELCHAIR - SCORE: 0-UNK COMPREHENSION: COMPREHENSION: TYPE: Both COMPREHENSION - STEP 1: Does the patient require help from a person or device, or need extra time to understand complex and a bstract ideas (such as current events, finances, discharge planning, medical issues, relationships, e tc)? No. COMPREHENSION - STEP 2: Does the patient need extra time, require an assistive device (such as glasses for visual comprehensi on or a hearing aid for auditory comprehension) or does s/he have mild difficulty understanding compl ex and abstract information? Yes. COMPREHENSION - SCORE: 6-RASHAWN EXPRESSION EXPRESSION: TYPE: Both EXPRESSION - STEP 1: Does the patient require help from a person or device, or need extra time expressing complex and abst ract ideas (such as current events, finances, discharge planning, medical issues, relationships, etc) ? No. EXPRESSION - STEP 2: Does the patient need extra time, require an assistive device (such as augmentive communication syste m or a communication board), OR does s/he have mild difficulty expressing complex and abstract ideas (including mild dysarthria or mild word-find problems)? Yes. EXPRESSION - SCORE: 6-RASHAWN SOCIAL INTERACTION: SOCIAL INTERACTION - STEP 1: Does the patient require a helper to interact with others in social and therapeutic situations? No. SOCIAL INTERACTION - STEP 2: Does the patient need extra time in social situations, OR does s/he interact with staff, other patien ts, and family members ONLY in structured environments, OR does s/he require medication for social in teraction? Yes, patient needs extra time SOCIAL INTERACTION - SCORE: 6-RASHAWN PROBLEM SOLVING: PROBLEM SOLVING - STEP 1: Does the patient need help from a person or device, or need extra time to solve complex problems such as managing a checking account or confronting interpersonal problems? No. PROBLEM SOLVING - STEP 2: Does the patient require extra time to make decisions or solve problems, OR does s/he have slight dif ficulty reading, initiating, or self-correcting in unfamiliar situations? Yes, patient needs extra ti me. PROBLEM SOLVING - SCORE: 6-RASHAWN MEMORY: MEMORY - STEP 1: Does the patient need help from a person or device, or need extra time to remember frequently encount ered people, daily routines, and executing requests? No. MEMORY - STEP 2: Does the patient have slight difficulty recognizing frequently encountered people, daily routines, or executing requests without the need for repetition or using self-initiated or environmental cues to remember? Yes. MEMORY - SCORE: 6-RASHAWN SIGNATURE PANEL: The following modified sections: Eating - Score, Grooming - Score, Bathing - Score, Dressing - Upper Body - Score, Dressing - Lower Body - Score, Toileting - Score, Bladder Management - Score, Bowel Man agement - Score, Transfers: Bed, Chair, Wheelchair - Score, Transfers: Toilet - Score, Transfers: Donna wer - Score, Transfers: Tub - Score, Locomotion: Walk - Score, Locomotion: Wheelchair - Score, Compre hension - Score, Expression - Score, Social Interaction - Score, Problem Solving - Score, Memory - Sc ore were [electronically] signed by Elmer Dias on MonSep 20 2018 14:45:19 GMT-0600 (Central Standard Time)
--- NOTE | 2018-09-20 15:38 | R.PN ---
ENCOUNTER DATE AND TIME: 09/20/2018 15:34 (HYDRAULIC PLUMBER) NAME VINCE SANDERS DATE OF : 1945 DATE OF ADMISSION: 09/11/2018 17:29 (HYDRAULIC PLUMBER) Closed Displaced Midcervical Frcature of Right FemurCHIEF COMPLAINT: Right femur fracture SUBJECTIVE: Pt denied any Shortness of Breath. Pt denied any depression. Ambulated 650' with standby assistance using a rolling walker. Hgb 10.0, Prealbumin 20.9, Glucose 132 to 165 after decrease of nightly NPH to 51 units. Now on Kefle x 500 mg bid for 3/4 days. Ambulated 750' with standby assistance using a rolling walker. VITAL SIGNS Temperature: 97.2 F SBP/DBP: 122/51 Pulse: 72 Resp: 16 MEDICATION ALLERGIES: No Known Drug Allergies (NKDA) ENVIRONMENTAL ALLERGIES: None Known - Substance Allergies None Known - Other Allergies None Known NURSING: - Shower allowing shower - Lab Results blood Sugar Check ACHS - Skin care per protocol PRECAUTIONS: - Posterior Hip Precaution No adduction across midline No external rotation No hip flexion >90 degrees No internal rotation No wheel chair propulsion - Weight Bearing Precaution WBAT right LE ACTIVITIES OOB only with supervision THERAPIES: - Occupational Therapy Evaluate and Treat. - Physical Therapy Evaluate and Treat. PHYSICAL EXAM - Gen Alert and awake Lying in bed No apparent distress Oriented to: person, time, and place - Skin No beakdown No abnormalities - Eyes No abnormalities - ENMT No abnormalities - Neck No abnormalities - CVS RRR - Chest Clear - Abd + bowel sounds - GI Soft Deferred - No abnormalities - Ext Right hip surgical site has good hemostasis. - MSK 4+/5 weakness in right lower extremity. - Neuro 4/5 strength right lower extremity - Psych No abnormalities ASSESSMENT: Pt. is a 73 yo Right-handed white female.On 09/05/2018 she was [facility] with diagnosis Closed Displaced Midcervical Frcature of Right Femur.Her impairment category is Orth opaedic Disorders 08 - Unilateral Hip Fracture (03.17).Pre-morbidly, Pt. was independent/mod-I in Se lf-Care, Locomotion, Sphincter Control, Transfers Control, Communication, and Social Cognition; and s he had good Sphincter Control.Currently, she has deficits of Balance, Locomotion, Endurance, Safety A wareness, Transfers Control, and Self-Care.Pt. is now referred to [facility] f or acute in-patient rehabilitation in order to maximize patient's functional independence in activiti es of daily living, strength, ROM, and mobility.- Rehab Goal Patient has realistic goal of being discharged at assistance level 6-Josias to reside at Home with Fam alma delia/Relatives. MDM/PLAN: - Physical Therapy Decreased range of motion - to improve, our physical therapists will perform initial evaluation of p t's status upon admission and devise an individualized program for increasing patient's Range of Alex on. Gait dysfunction - to improve, our physical therapists will perform initial evaluation of pt's statu s upon admission and devise an individualized program for Gait Training, and Wheel Chair mobility Inability to transfer - to improve, our physical therapists will perform initial evaluation of pt's status upon admission and devise an individualized program for Bed mobility Need for home safety evaluation - to improve, our physical therapists will perform initial evaluatio n of pt's status upon admission and devise an individualized program for Home Evaluation Need in caregiver upon discharge - to improve, our physical therapists will perform initial evaluati on of pt's status upon admission and devise an individualized program for Caregiver Training New precaution - to improve, our physical therapists will perform initial evaluation of pt's status upon admission and devise an individualized program for Patient precaution education Poor balance - to improve, our physical therapists will perform initial evaluation of pt's status up on admission and devise an individualized program for Balance Training Poor endurance - to improve, our physical therapists will perform initial evaluation of pt's status upon admission and devise an individualized program for Endurance Training Weakness - to improve, our physical therapists will perform initial evaluation of pt's status upon a dmission and devise an individualized program for Aquatic Therapy, Neuromuscular Reeducation, and Str engthening Achieving independence - to improve, our physical therapists will perform initial evaluation of pt's status upon admission and devise an individualized program for Community Reintegration Activities - Occupational Therapy ADL deficits - to improve, our occupation therapists will perform initial evaluation of pt's status upon admission and devise an individualized program for Bathing, Bed mobility, Community Reintegratio n, Cooking, Dressing, Eating, Fine Motor Skills, Grooming, Homemaking, Kitchen Mobility, Laundry, Pat ient Education, Safety Awareness, Splinting - Positioning, Transfers(Toilet, Tub, Shower), and Wheel Chair Management Need for nanny caregiver - to improve, our occupation therapists will perform initial evaluation of pt's status upon admission and devise an individualized program for Caregiver Training Weakness - to improve, our occupation therapists will perform initial evaluation of pt's status upon admission and devise an individualized program for Aquatic Therapy, Balance, Endurance, UE ROM, and UE strengthening - Anterior Hip Precaution No abduction No active extension No adduction across midline No external rotation No hip flexion >90 degrees No internal rotation - Diet - Liquid Texture Continue Regular - Tube Feed Continue N/A - Diet Type Continue Regular - Posterior Hip Precaution No adduction across midline No external rotation No hip flexion >90 degrees No internal rotation No wheel chair propulsion - Lab Results blood Sugar Check ACHS - Weight Bearing Precaution WBAT right LE - Skin care per protocol - Diet - Solid Texture Continue Regular - Shower allowing shower FUNCTIONAL STATUS: UPDATED AT WEEKLY TEAM CONFERENCE - Bladder Same accident frequency: 7-Ind - No accidents in the past 7 days - Bowel Same accident frequency: 7-Ind - No accidents in the past 7 days - Walking Same score based on distance walked: 1(<=50ft) - Wheelchair Same score based on distance traveled: 0(N/A) FUNCTIONAL STATUS: - Self-Care A. Eating Ind B. Grooming Ind C. Bathing sup D. Dressing - Upper sup E. Dressing - Lower modA F. Toileting maxA - Sphincter Control G: Bladder control Ind H: Bowel control Ind - Transfers Control I. Bed/Chair/Wheelchair min-to-modA J. Toilet modA K. Tub/Shower ADNO - Locomotion L. Walk/Wheelchair (C) modA L. Walk/Wheelchair (W) modA M. Stairs ADNO - Communication N. Comprehension (B) Josias O. Expression (B) Josias - Social Cognition P. Social Interaction Josias Q. Problem Solving Josias R. Memory Josias - Endurance Fair - Balance Fair - Safety Awareness Fair CURRENT FUNC. DEFICITS: Balance, Locomotion, Endurance, Safety Awareness, Transfers Control, and Self-Care SIGNATURE PANEL: (HYDRAULIC PLUMBER)
--- NOTE | 2018-09-20 16:47 | FAST ---
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 Delmer Gonzalez M.D. ADMISSION DIAGNOSIS: - Orthopaedic Disorders 08 - Unilateral Hip Fracture (08.11) Closed Displaced Midcervical Frcature of Right Femur. EATING: Activity did not occur on this shift EATING - SCORE: 0-UNK GROOMING: Activity did not occur on this shift GROOMING - SCORE: 0-UNK BATHING: Activity did not occur on this shift BATHING - SCORE: 0-UNK DRESSING - UPPER BODY: Activity did not occur on this shift Patient is not dressing in public clothing ARTICLES SCORE Total number of steps: 0 DRESSING - UPPER BODY - SCORE: 0-UNK DRESSING - LOWER BODY: Activity did not occur on this shift Patient is not dressing in public clothing ARTICLES SCORE Total number of steps: 0 DRESSING - LOWER BODY - SCORE: 0-UNK TOILETING: Activity did not occur on this shift TOILETING - SCORE: 0-UNK BLADDER MANAGEMENT: Activity did not occur on this shift BLADDER MANAGEMENT - SCORE: 7-IND BOWEL MANAGEMENT: Activity did not occur on this shift BOWEL MANAGEMENT - SCORE: 7-IND TRANSFERS: BED, CHAIR, WHEELCHAIR: TRANSFERS: BED, CHAIR, WHEELCHAIR - STEP 1: Does the patient require assistance of a person or device, or need extra time with bed, chair, or whe elchair transfers? Yes. TRANSFERS: BED, CHAIR, WHEELCHAIR - STEP 2: Does the patient require the assistance of a helper? No. Patient only requires an assistive device fo r bed, chair, wheelchair transfers such as a sliding board, grab bar, or brace, OR s/he takes more th an reasonable time, OR there is a safety concern when s/he performs the transfers TRANSFERS: BED, CHAIR, WHEELCHAIR - SCORE: 6-RASHAWN TRANSFERS: TOILET: Activity did not occur on this shift TRANSFERS: TOILET - SCORE: 0-UNK TRANSFERS: SHOWER: Activity did not occur on this shift TRANSFERS: SHOWER - SCORE: 0-UNK TRANSFERS: TUB: Activity did not occur on this shift TRANSFERS: TUB - SCORE: 0-UNK LOCOMOTION: WALK: LOCOMOTION: WALK - STEP 1: Does the patient need help from a person or device, or need extra time to walk 150 feet? No. LOCOMOTION: WALK - STEP 2: Does the patient need an assistive device (such as an orthosis, prosthesis, crutches, or walker) to g o 150 feet, OR does s/he take more than reasonable time, OR is there a concern for safety? Yes, the p atient needs an assistive device LOCOMOTION: WALK - SCORE: 6-RASHAWN LOCOMOTION: WHEELCHAIR: Activity did not occur on this shift LOCOMOTION: WHEELCHAIR - SCORE: 0-UNK LOCOMOTION: STAIRS: LOCOMOTION: STAIRS - STEP 1: Does the patient need help to go up and down 12 to 14 stairs? Yes. LOCOMOTION: STAIRS - STEP 2: How much assistance does the patient need from the helper to go a minimum of 12 to 14 stairs? Only mchugh pervision, cuing, or coaxing LOCOMOTION: STAIRS - SCORE: 5-SUP COMPREHENSION: COMPREHENSION - SCORE: 0-UNK EXPRESSION EXPRESSION - SCORE: 0-UNK SOCIAL INTERACTION: SOCIAL INTERACTION - SCORE: 0-UNK PROBLEM SOLVING: PROBLEM SOLVING - SCORE: 0-UNK MEMORY: MEMORY - SCORE: 0-UNK SIGNATURE PANEL: The following modified sections: Transfers: Bed, Chair, Wheelchair - Score, Transfers: Toilet - Score , Locomotion: Walk - Score, Locomotion: Wheelchair - Score, Locomotion: Stairs - Score were [electron lupis] signed by Von Cowan PT on MonSep 20 2018 16:46:30 GMT-0600 (Central Standard Time)
[2018-09-20] MEDS: TRAMADOL HCL 50 MG TAB PO PRN (17:39)
[2018-09-20] MEDS: ATORVASTATIN 10 MG TAB PO SCH (20:23)
[2018-09-20] MEDS: PRIMIDONE 50 MG TAB PO SCH (20:23)
[2018-09-20] MEDS: DOCUSATE NA/SENNA CONC 1 TAB PO PRN (20:23)
[2018-09-20] MEDS: GABAPENTIN 300 MG CAP PO SCH (20:23)
[2018-09-21] MEDS: LEVOTHYROXINE SOD 0.1 MG TAB PO SCH (05:07)
[2018-09-21 06:23] VITALS: BP 127/60; TEMP 96.8
[2018-09-21] MEDS: ENOXAPARIN 30 MG/0.3 ML SQ SCH (06:45)
[2018-09-21] MEDS: INSULIN -REGULAR HUMAN 50 UNIT/0.5 ML ML SQ SCH ×2 (06:52→11:30)
--- NOTE | 2018-09-21 07:45 | FAST ---
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 Delmer Gonzalez M.D. ADMISSION DIAGNOSIS: - Orthopaedic Disorders 08 - Unilateral Hip Fracture (08.11) Closed Displaced Midcervical Frcature of Right Femur. EATING: Activity did not occur on this shift EATING - SCORE: 0-UNK GROOMING: Activity did not occur on this shift GROOMING - SCORE: 0-UNK BATHING: Activity did not occur on this shift BATHING - SCORE: 0-UNK DRESSING - UPPER BODY: Patient is not dressing in public clothing ARTICLES SCORE Total number of steps: 0 DRESSING - UPPER BODY - SCORE: 0-UNK DRESSING - LOWER BODY: Patient is not dressing in public clothing ARTICLES SCORE Total number of steps: 0 DRESSING - LOWER BODY - SCORE: 0-UNK TOILETING: TOILETING - STEP 1: Does the patient require the assistance of a person or device, or need extra time with toileting? Yes . TOILETING - STEP 2: Does the patient require the assistance of a helper? Yes. TOILETING - STEP 3: How much assistance does the patient require from the helper? Only supervision TOILETING - SCORE: 5-SUP BLADDER MANAGEMENT: BLADDER MANAGEMENT - STEP 1: Does the patient control the bladder completely and intentionally without equipment or devices or med ications, and is always continent? No. BLADDER MANAGEMENT - STEP 2: Does the patient require the assistance of a helper? Yes. BLADDER MANAGEMENT - STEP 3: How much assistance does the patient require from the helper? Only supervision, stand-by, cuing, or c oaxing BLADDER MANAGEMENT - SCORE: 5-SUP BLADDER MANAGEMENT - FREQUENCY OF ACCIDENTS: BLADDER MANAGEMENT(FA) - STEP 1: How many accidents has the patient had during the current shift? 1 BOWEL MANAGEMENT: Activity did not occur on this shift BOWEL MANAGEMENT - SCORE: 7-IND TRANSFERS: BED, CHAIR, WHEELCHAIR: TRANSFERS: BED, CHAIR, WHEELCHAIR - STEP 1: Does the patient require assistance of a person or device, or need extra time with bed, chair, or whe elchair transfers? Yes. TRANSFERS: BED, CHAIR, WHEELCHAIR - STEP 2: Does the patient require the assistance of a helper? Yes. TRANSFERS: BED, CHAIR, WHEELCHAIR - STEP 3: How much assistance does the patient require from the helper? Only supervision TRANSFERS: BED, CHAIR, WHEELCHAIR - SCORE: 5-SUP TRANSFERS: TOILET: TRANSFERS: TOILET - STEP 1: Does the patient require the assistance of a person or device, or need extra time with toilet transfe rs? Yes. TRANSFERS: TOILET - STEP 2: Does the patient require the assistance of a helper? Yes. TRANSFERS: TOILET - STEP 3: How much assistance does the patient require from the helper? Only supervision, cuing, coaxing, OR he lp to set out transfer equipment or to lock brakes and/or lift foot rests TRANSFERS: TOILET - SCORE: 5-SUP TRANSFERS: SHOWER: Activity did not occur on this shift TRANSFERS: SHOWER - SCORE: 0-UNK TRANSFERS: TUB: Activity did not occur on this shift TRANSFERS: TUB - SCORE: 0-UNK LOCOMOTION: WALK: Activity did not occur on this shift LOCOMOTION: WALK - SCORE: 0-UNK LOCOMOTION: WHEELCHAIR: Activity did not occur on this shift LOCOMOTION: WHEELCHAIR - SCORE: 0-UNK COMPREHENSION: COMPREHENSION: TYPE: Both COMPREHENSION - STEP 1: Does the patient require help from a person or device, or need extra time to understand complex and a bstract ideas (such as current events, finances, discharge planning, medical issues, relationships, e tc)? No. COMPREHENSION - STEP 2: Does the patient need extra time, require an assistive device (such as glasses for visual comprehensi on or a hearing aid for auditory comprehension) or does s/he have mild difficulty understanding compl ex and abstract information? Yes. COMPREHENSION - SCORE: 6-RASHAWN EXPRESSION EXPRESSION: TYPE: Both EXPRESSION - STEP 1: Does the patient require help from a person or device, or need extra time expressing complex and abst ract ideas (such as current events, finances, discharge planning, medical issues, relationships, etc) ? No. EXPRESSION - STEP 2: Does the patient need extra time, require an assistive device (such as augmentive communication syste m or a communication board), OR does s/he have mild difficulty expressing complex and abstract ideas (including mild dysarthria or mild word-find problems)? No. EXPRESSION - SCORE: 7-IND SOCIAL INTERACTION: SOCIAL INTERACTION - STEP 1: Does the patient require a helper to interact with others in social and therapeutic situations? No. SOCIAL INTERACTION - STEP 2: Does the patient need extra time in social situations, OR does s/he interact with staff, other patien ts, and family members ONLY in structured environments, OR does s/he require medication for social in teraction? No. SOCIAL INTERACTION - SCORE: 7-IND PROBLEM SOLVING: PROBLEM SOLVING - STEP 1: Does the patient need help from a person or device, or need extra time to solve complex problems such as managing a checking account or confronting interpersonal problems? No. PROBLEM SOLVING - STEP 2: Does the patient require extra time to make decisions or solve problems, OR does s/he have slight dif ficulty reading, initiating, or self-correcting in unfamiliar situations? No. PROBLEM SOLVING - SCORE: 7-IND MEMORY: MEMORY - STEP 1: Does the patient need help from a person or device, or need extra time to remember frequently encount ered people, daily routines, and executing requests? No. MEMORY - STEP 2: Does the patient have slight difficulty recognizing frequently encountered people, daily routines, or executing requests without the need for repetition or using self-initiated or environmental cues to remember? No. MEMORY - SCORE: 7-IND SIGNATURE PANEL: The following modified sections: Eating - Score, Grooming - Score, Bathing - Score, Dressing - Upper Body - Score, Dressing - Lower Body - Score, Toileting - Score, Bladder Management - Score, Bowel Man agement - Score, Transfers: Bed, Chair, Wheelchair - Score, Transfers: Toilet - Score, Transfers: Donna wer - Score, Transfers: Tub - Score, Locomotion: Walk - Score, Locomotion: Wheelchair - Score, Compre hension - Score, Expression - Score, Social Interaction - Score, Problem Solving - Score, Memory - Sc ore were [electronically] signed by Diana Ernst CNA on MonSep 21 2018 01:52:52 T-0600 ([facility])
[2018-09-21] MEDS: NPH (HUMAN) 100 UNITS/ML INSULIN SQ SCH (08:13)
[2018-09-21] MEDS: SPIRONOLACTONE 25 MG TABLET PO SCH (08:15)
[2018-09-21] MEDS: FERROUS SULFATE 325 MG TAB PO SCH (08:16)
[2018-09-21] MEDS: BUPROPION HCL XL 150 MG TAB PO SCH (08:16)
[2018-09-21] MEDS: PIOGLITAZONE 15 MG TAB PO SCH (08:16)
[2018-09-21] MEDS: CEPHALEXIN 500 MG CAP PO SCH (08:16)
[2018-09-21] MEDS: CRANBERRY FRUIT EXTRACT 200 MG CAP PO SCH (08:17)
[2018-09-21] MEDS: VENLAFAXINE HCL XR 75 MG CAP PO SCH (08:17)
[2018-09-21] MEDS: HYDROCODONE/APAP 5/325 MG TAB PO PRN ×2 (08:17→12:18)
[2018-09-21] MEDS: MAGNESIUM OXIDE 400 MG TAB PO SCH (08:18)
[2018-09-21] MEDS: BUMETANIDE 1 MG TABLET PO SCH (08:18)
[2018-09-21] MEDS: METFORMIN HCL 500 MG TAB PO SCH (08:18)
[2018-09-21] MEDS: GALANTAMINE 4 MG TAB PO SCH (08:18)
[2018-09-21] MEDS: FE SULF/FA/VIT B COMP & C TAB PO SCH (08:18)
[2018-09-21] MEDS: ASPIRIN EC 81 MG TAB PO SCH (08:18)
[2018-09-21] MEDS: METOPROLOL TAR 25 MG TAB PO SCH (08:19)
[2018-09-21] MEDS: CLOPIDOGREL 75 MG TABLET PO SCH (08:19)
[2018-09-21] MEDS: DIGOXIN 0.125 MG TABLET PO SCH (08:20)
[2018-09-21] MEDS: MULTIVITAMIN TAB PO SCH (08:20)
[2018-09-21] MEDS: DOCOSAHEXANOIC AC/EPA 1000 MG PO SCH (08:20)
[2018-09-21] MEDS: PROMOD 30 ML DOSE PO SCH (08:21)
--- NOTE | 2018-09-21 09:48 | P.RH.PN ---
Estimated Length of Stay: 11 Expected Discharge Date: 09/21/18 Discharge Disposition Plan: Home Family Support: Yes Detention Goal: Mobility, Transfers, Self Care Vital Signs: Last Vital Signs Temp 96.8 F 09/21/18 06:21 Pulse 68 09/21/18 08:19 Resp 18 09/21/18 06:21 BP 127/60 09/21/18 08:19 Pulse Ox 98 09/21/18 06:21 Laboratory: Laboratory Last Values WBC 8.1 K/uL (4.3-10.9) D 09/20/18 05:54 RBC 3.31 M/uL (3.86-4.86) L 09/20/18 05:54 Hgb 10.0 g/dL (12.0-15.0) L 09/20/18 05:54 Hct 29.8 % (36.0-45.0) L 09/20/18 05:54 MCV 89.9 fL (80-100) 09/20/18 05:54 MCH 30.2 pg (27.0-35.0) 09/20/18 05:54 MCHC 33.6 g/dL (32.0-36.0) 09/20/18 05:54 RDW 15.0 % (12.1-15.2) 09/20/18 05:54 Plt Count 356 K/uL (152-406) 09/20/18 05:54 MPV 7.6 fL (7.6-11.3) 09/20/18 05:54 Neutrophils % 61.7 % (41.7-73.7) 09/20/18 05:54 Lymphocytes % 27.4 % (15.3-44.8) 09/20/18 05:54 Monocytes % 6.9 % (3.3-12.3) 09/20/18 05:54 Eosinophils % 3.5 % (0-4.4) 09/20/18 05:54 Basophils % 0.5 % (0-1.3) 09/20/18 05:54 Absolute Neutrophils 5.0 K/uL (1.8-8.0) 09/20/18 05:54 Absolute Lymphocytes 2.2 K/uL (0.7-4.9) 09/20/18 05:54 Absolute Monocytes 0.6 K/uL (0.1-1.3) 09/20/18 05:54 Absolute Eosinophils 0.3 K/uL (0-0.5) 09/20/18 05:54 Absolute Basophils 0.0 K/uL (0-0.5) 09/20/18 05:54 Sodium 140 mmol/L (136-145) 09/20/18 05:54 Potassium 4.3 mmol/L (3.5-5.1) 09/20/18 05:54 Chloride 103 mmol/L (98-107) 09/20/18 05:54 Carbon Dioxide 32 mmol/L (21-32) 09/20/18 05:54 BUN 15 mg/dL (7-18) 09/20/18 05:54 Creatinine 0.68 mg/dL (0.55-1.3) 09/20/18 05:54 Estimated GFR 85 mL/min (=/>90) L 09/20/18 05:54 Glucose 152 mg/dL (74-106) H 09/20/18 05:54 POC Glucose 107 mg/dl (65-120) 09/21/18 06:14 Calcium 8.7 mg/dL (8.5-10.1) 09/20/18 05:54 Magnesium 2.0 mg/dL (1.8-2.4) 09/12/18 06:18 Albumin 2.9 g/dL (3.4-5.0) L 09/20/18 05:54 Prealbumin 20.9 mg/dL (20-40) 09/20/18 05:54 Urine Color Yellow 09/15/18 16:06 Urine Appearance Clear 09/15/18 16:06 Urine pH 6.5 (5.0-7.0) 09/15/18 16:06 Ur Specific [place] <=1.005 (1.005-1.030) 09/15/18 16:06 Urine Ketones Negative (NEG) 09/15/18 16:06 Urine Blood Negative (NEG) 09/15/18 16:06 Urine Nitrite Negative (NEG) 09/15/18 16:06 Urine Bilirubin Negative (NEG) 09/15/18 16:06 Urine Urobilinogen 0.2 mg/dL (0.2-1.0) 09/15/18 16:06 Ur Leukocyte Esterase 3+ (NEG) H 09/15/18 16:06 Urine RBC None seen /HPF (NONE SEEN) 09/15/18 16:06 Urine WBC 20-50 /HPF (<5) H 09/15/18 16:06 Ur Squamous Epith Cells <5 /HPF (NONE SEEN) 09/15/18 16:06 Urine Bacteria 20-50 /HPF (<20) H 09/15/18 16:06 Urine Culture Reflexed Not needed 09/15/18 16:06 Urine Glucose Negative (NEG) 09/15/18 16:06 Urine Total Protein Negative (NEG) 09/15/18 16:06 Digoxin 0.60 ng/mL (0.80-2.00) L 09/12/18 06:18 Weight: 209 lb 8 oz Wound Present: No Closed Surgical Incision Present: Yes Negative Pressure Wound Therapy Present: No Physician Update: Labs have been reviewed and are stable. Hgb 10.0, glucose 107 to 192. He is modified independent with physical and occupational therapy. She is ready for discharge home today and will have outpatient therapy at [facility]. Medical Issues: DVT Prophylaxis - Lovenox 30mg SQ Daily Pain Issues: [place] 5/325mg Q4H PRN PO. Lidoderm patch 5% Daily Functional Improvement: pt has demonstrated constant improvement and met many of her goals. She is able to perform functional activities without the need for physical assist. She is on track for her discharge date. Functional Improvement Occupational Therapy: Good participation and motivation. Will require use and education in use of adaptive equipment. Summary: Patient's care plan and superintendent container terminal goals have been reviewed and revised as necessary. Please see the Rehabilitation Signature page for all necessary signatures.
[2018-09-21] MEDS: LIDOCAINE 5% PATCH TOP SCH (10:14)
--- NOTE | 2018-09-21 12:31 | FAST ---
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 Delmer Gonzalez M.D. ADMISSION DIAGNOSIS: - Orthopaedic Disorders 08 - Unilateral Hip Fracture (08.11) Closed Displaced Midcervical Frcature of Right Femur. EATING: Activity did not occur on this shift EATING - SCORE: 0-UNK GROOMING: GROOMING - STEP 1: Does the patient require the assistance of a person or device, or need extra time when grooming? No. GROOMING - SCORE: 7-IND BATHING: Abdomen Chest Left arm Left lower leg and foot Left upper leg Perineal area Right arm Right lower leg and foot Right upper leg BATHING - STEP 1: Does the patient require the assistance of a person or device, or need extra time when bathing? Yes. BATHING - STEP 2: Does the patient require the assistance of a helper? No. The patient only requires an assistive devic e such as a bath [place], OR the patient takes more than reasonable time to bathe, OR there is a concern for safety such as regulating water temperature as the patient bathes. BATHING - SCORE: 6-RASHAWN DRESSING - UPPER BODY: Bra (three steps) T-shirt/pullover shirt (four steps) ARTICLES SCORE Total number of steps: 7 DRESSING - UPPER BODY - STEP 1: Does the patient require help from a person or device, or need extra time when dressing above the [address]? No. DRESSING - UPPER BODY - SCORE: 7-IND DRESSING - LOWER BODY: Elastic waist pants (three steps) Slip-on shoe - Left foot (one step) Slip-on shoe - Right foot (one step) Underwear (three steps) ARTICLES SCORE Total number of steps: 8 DRESSING - LOWER BODY - STEP 1: Does the patient require help from a person or device, or need extra time when dressing below the bre[address] st? Yes. DRESSING - LOWER BODY - STEP 2: Does the patient require the assistance of a helper? No. Patient requires an assistive device such as a tube fitter. OR s/he takes more than reasonable time as s/he dresses the lower body, OR there is a con cern for safety when s/he dresses the lower body DRESSING - LOWER BODY - SCORE: 6-RASHAWN TOILETING: TOILETING - STEP 1: Does the patient require the assistance of a person or device, or need extra time with toileting? Yes . TOILETING - STEP 2: Does the patient require the assistance of a helper? No. TOILETING - SCORE: 6-RASHAWN BLADDER MANAGEMENT: Activity did not occur on this shift BLADDER MANAGEMENT - SCORE: 7-IND BOWEL MANAGEMENT: Activity did not occur on this shift BOWEL MANAGEMENT - SCORE: 7-IND TRANSFERS: BED, CHAIR, WHEELCHAIR: TRANSFERS: BED, CHAIR, WHEELCHAIR - STEP 1: Does the patient require assistance of a person or device, or need extra time with bed, chair, or whe elchair transfers? Yes. TRANSFERS: BED, CHAIR, WHEELCHAIR - STEP 2: Does the patient require the assistance of a helper? No. Patient only requires an assistive device fo r bed, chair, wheelchair transfers such as a sliding board, grab bar, or brace, OR s/he takes more th an reasonable time, OR there is a safety concern when s/he performs the transfers TRANSFERS: BED, CHAIR, WHEELCHAIR - SCORE: 6-RASHAWN TRANSFERS: TOILET: TRANSFERS: TOILET - STEP 1: Does the patient require the assistance of a person or device, or need extra time with toilet transfe rs? Yes. TRANSFERS: TOILET - STEP 2: Does the patient require the assistance of a helper? No. Patient only requires an assistive device mchugh ch as a grab bar or special seat, OR s/he takes more than reasonable time to perform toilet transfers , OR there is a safety concern when s/he performs toilet transfers. TRANSFERS: TOILET - SCORE: 6-RASHAWN TRANSFERS: SHOWER: Activity did not occur on this shift TRANSFERS: SHOWER - SCORE: 0-UNK TRANSFERS: TUB: TRANSFERS: TUB - STEP 1: Does the patient require the assistance of a person or device, or need extra time with tub transfers? Yes. TRANSFERS: TUB - STEP 2: Does the patient require the assistance of a helper? No. Only requires the assistance of an assistive device, OR takes more than reasonable time, OR there is a concern for safety when s/he performs tub transfers TRANSFERS: TUB - SCORE: 6-RASHAWN LOCOMOTION: WALK: Activity did not occur on this shift LOCOMOTION: WALK - SCORE: 0-UNK LOCOMOTION: WHEELCHAIR: Activity did not occur on this shift LOCOMOTION: WHEELCHAIR - SCORE: 0-UNK LOCOMOTION: STAIRS: Activity did not occur on this shift LOCOMOTION: STAIRS - SCORE: 0-UNK COMPREHENSION: COMPREHENSION: TYPE: Both COMPREHENSION - STEP 1: Does the patient require help from a person or device, or need extra time to understand complex and a bstract ideas (such as current events, finances, discharge planning, medical issues, relationships, e tc)? No. COMPREHENSION - STEP 2: Does the patient need extra time, require an assistive device (such as glasses for visual comprehensi on or a hearing aid for auditory comprehension) or does s/he have mild difficulty understanding compl ex and abstract information? Yes. COMPREHENSION - SCORE: 6-RASHAWN EXPRESSION EXPRESSION: TYPE: Both EXPRESSION - STEP 1: Does the patient require help from a person or device, or need extra time expressing complex and abst ract ideas (such as current events, finances, discharge planning, medical issues, relationships, etc) ? No. EXPRESSION - STEP 2: Does the patient need extra time, require an assistive device (such as augmentive communication syste m or a communication board), OR does s/he have mild difficulty expressing complex and abstract ideas (including mild dysarthria or mild word-find problems)? No. EXPRESSION - SCORE: 7-IND SOCIAL INTERACTION: SOCIAL INTERACTION - STEP 1: Does the patient require a helper to interact with others in social and therapeutic situations? No. SOCIAL INTERACTION - STEP 2: Does the patient need extra time in social situations, OR does s/he interact with staff, other patien ts, and family members ONLY in structured environments, OR does s/he require medication for social in teraction? No. SOCIAL INTERACTION - SCORE: 7-IND PROBLEM SOLVING: PROBLEM SOLVING - STEP 1: Does the patient need help from a person or device, or need extra time to solve complex problems such as managing a checking account or confronting interpersonal problems? No. PROBLEM SOLVING - STEP 2: Does the patient require extra time to make decisions or solve problems, OR does s/he have slight dif ficulty reading, initiating, or self-correcting in unfamiliar situations? Yes, patient needs extra ti me. PROBLEM SOLVING - SCORE: 6-RASHAWN MEMORY: MEMORY - STEP 1: Does the patient need help from a person or device, or need extra time to remember frequently encount ered people, daily routines, and executing requests? No. MEMORY - STEP 2: Does the patient have slight difficulty recognizing frequently encountered people, daily routines, or executing requests without the need for repetition or using self-initiated or environmental cues to remember? Yes. MEMORY - SCORE: 6-RASHAWN SIGNATURE PANEL: The following modified sections: Eating - Score, Grooming - Score, Bathing - Score, Dressing - Upper Body - Score, Dressing - Lower Body - Score, Toileting - Score, Transfers: Bed, Chair, Wheelchair - S core, Transfers: Toilet - Score, Transfers: Shower - Score, Transfers: Tub - Score, Comprehension - S core, Expression - Score, Social Interaction - Score, Problem Solving - Score, Memory - Score were [e lectronically] signed by Kerri Ordoñez OT on MonSep 21 2018 12:31:10 [facility]-0600 ([facility])
--- NOTE | 2018-09-21 15:57 | FAST ---
ENCOUNTER DATE AND TIME: 09/21/2018 08:00 (OPHTHALMIC TECHNICIAN) NAME VINCE SANDERS DATE OF : 1945 DATE OF ADMISSION: 09/11/2018 17:29 (OPHTHALMIC TECHNICIAN) PHONE: AGE: 73 SSN# [id number] GENDER: Female ENCOUNTER PHYSICIAN: Dr. Delmer Gonzalez M.D. ADMISSION DIAGNOSIS: - Orthopaedic Disorders 08 - Unilateral Hip Fracture (08.11) Closed Displaced Midcervical Frcature of Right Femur. EATING: Activity did not occur on this shift EATING - SCORE: 0-UNK GROOMING: Activity did not occur on this shift GROOMING - SCORE: 0-UNK BATHING: Activity did not occur on this shift BATHING - SCORE: 0-UNK DRESSING - UPPER BODY: Activity did not occur on this shift Patient is not dressing in public clothing ARTICLES SCORE Total number of steps: 0 DRESSING - UPPER BODY - SCORE: 0-UNK DRESSING - LOWER BODY: Activity did not occur on this shift Patient is not dressing in public clothing ARTICLES SCORE Total number of steps: 0 DRESSING - LOWER BODY - SCORE: 0-UNK TOILETING: Activity did not occur on this shift TOILETING - SCORE: 0-UNK BLADDER MANAGEMENT: Activity did not occur on this shift BLADDER MANAGEMENT - SCORE: 7-IND BOWEL MANAGEMENT: Activity did not occur on this shift BOWEL MANAGEMENT - SCORE: 7-IND TRANSFERS: BED, CHAIR, WHEELCHAIR: TRANSFERS: BED, CHAIR, WHEELCHAIR - STEP 1: Does the patient require assistance of a person or device, or need extra time with bed, chair, or whe elchair transfers? Yes. TRANSFERS: BED, CHAIR, WHEELCHAIR - STEP 2: Does the patient require the assistance of a helper? No. Patient only requires an assistive device fo r bed, chair, wheelchair transfers such as a sliding board, grab bar, or brace, OR s/he takes more th an reasonable time, OR there is a safety concern when s/he performs the transfers TRANSFERS: BED, CHAIR, WHEELCHAIR - SCORE: 6-RASHAWN TRANSFERS: TOILET: Activity did not occur on this shift TRANSFERS: TOILET - SCORE: 0-UNK TRANSFERS: SHOWER: Activity did not occur on this shift TRANSFERS: SHOWER - SCORE: 0-UNK TRANSFERS: TUB: Activity did not occur on this shift TRANSFERS: TUB - SCORE: 0-UNK LOCOMOTION: WALK: LOCOMOTION: WALK - STEP 1: Does the patient need help from a person or device, or need extra time to walk 150 feet? No. LOCOMOTION: WALK - STEP 2: Does the patient need an assistive device (such as an orthosis, prosthesis, crutches, or walker) to g o 150 feet, OR does s/he take more than reasonable time, OR is there a concern for safety? Yes, the p atient needs an assistive device LOCOMOTION: WALK - SCORE: 6-RASHAWN LOCOMOTION: WHEELCHAIR: Activity did not occur on this shift LOCOMOTION: WHEELCHAIR - SCORE: 0-UNK LOCOMOTION: STAIRS: LOCOMOTION: STAIRS - STEP 1: Does the patient need help to go up and down 12 to 14 stairs? Yes. LOCOMOTION: STAIRS - STEP 2: How much assistance does the patient need from the helper to go a minimum of 12 to 14 stairs? Only mchugh pervision, cuing, or coaxing LOCOMOTION: STAIRS - SCORE: 5-SUP COMPREHENSION: COMPREHENSION - SCORE: 0-UNK EXPRESSION EXPRESSION - SCORE: 0-UNK SOCIAL INTERACTION: SOCIAL INTERACTION - SCORE: 0-UNK PROBLEM SOLVING: PROBLEM SOLVING - SCORE: 0-UNK MEMORY: MEMORY - SCORE: 0-UNK SIGNATURE PANEL: The following modified sections: Transfers: Bed, Chair, Wheelchair - Score, Transfers: Toilet - Score , Locomotion: Walk - Score, Locomotion: Wheelchair - Score, Locomotion: Stairs - Score were [electron lupis] signed by Grady Brody PTA on MonSep 21 2018 15:56:22 GMT-0600 (Central Standard Time)
--- NOTE | 2018-09-21 15:58 | FAST ---
ENCOUNTER DATE AND TIME: 09/19/2018 08:00 (PROCESS CONTROL MANAGER) NAME VINCE SANDERS DATE OF : 1945 DATE OF ADMISSION: 09/11/2018 17:29 (PROCESS CONTROL MANAGER) PHONE: AGE: 73 SSN# [id number] GENDER: Female ENCOUNTER PHYSICIAN: Dr. Delmer Gonzalez M.D. ADMISSION DIAGNOSIS: - Orthopaedic Disorders 08 - Unilateral Hip Fracture (08.11) Closed Displaced Midcervical Frcature of Right Femur. EATING: Activity did not occur on this shift EATING - SCORE: 0-UNK GROOMING: Activity did not occur on this shift GROOMING - SCORE: 0-UNK BATHING: Activity did not occur on this shift BATHING - SCORE: 0-UNK DRESSING - UPPER BODY: Activity did not occur on this shift Patient is not dressing in public clothing ARTICLES SCORE Total number of steps: 0 DRESSING - UPPER BODY - SCORE: 0-UNK DRESSING - LOWER BODY: Activity did not occur on this shift Patient is not dressing in public clothing ARTICLES SCORE Total number of steps: 0 DRESSING - LOWER BODY - SCORE: 0-UNK TOILETING: Activity did not occur on this shift TOILETING - SCORE: 0-UNK BLADDER MANAGEMENT: Activity did not occur on this shift BLADDER MANAGEMENT - SCORE: 7-IND BOWEL MANAGEMENT: Activity did not occur on this shift BOWEL MANAGEMENT - SCORE: 7-IND TRANSFERS: BED, CHAIR, WHEELCHAIR: TRANSFERS: BED, CHAIR, WHEELCHAIR - STEP 1: Does the patient require assistance of a person or device, or need extra time with bed, chair, or whe elchair transfers? Yes. TRANSFERS: BED, CHAIR, WHEELCHAIR - STEP 2: Does the patient require the assistance of a helper? No. Patient only requires an assistive device fo r bed, chair, wheelchair transfers such as a sliding board, grab bar, or brace, OR s/he takes more th an reasonable time, OR there is a safety concern when s/he performs the transfers TRANSFERS: BED, CHAIR, WHEELCHAIR - SCORE: 6-RASHAWN TRANSFERS: TOILET: Activity did not occur on this shift TRANSFERS: TOILET - SCORE: 0-UNK TRANSFERS: SHOWER: Activity did not occur on this shift TRANSFERS: SHOWER - SCORE: 0-UNK TRANSFERS: TUB: Activity did not occur on this shift TRANSFERS: TUB - SCORE: 0-UNK LOCOMOTION: WALK: LOCOMOTION: WALK - STEP 1: Does the patient need help from a person or device, or need extra time to walk 150 feet? Yes. LOCOMOTION: WALK - STEP 2: How much assistance does the patient require to walk a minimum of 150 feet? Only supervision, cuing, or coaxing LOCOMOTION: WALK - SCORE: 5-SUP LOCOMOTION: WHEELCHAIR: LOCOMOTION: WHEELCHAIR - STEP 1: Does the patient need help to go 150 feet in a wheelchair? Yes. LOCOMOTION: WHEELCHAIR - STEP 2: How much assistance does the patient need from the helper? Only supervision, cuing, or coaxing LOCOMOTION: WHEELCHAIR - SCORE: 5-SUP LOCOMOTION: STAIRS: LOCOMOTION: STAIRS - STEP 1: Does the patient need help to go up and down 12 to 14 stairs? Yes. LOCOMOTION: STAIRS - STEP 2: How much assistance does the patient need from the helper to go a minimum of 12 to 14 stairs? Only mchugh pervision, cuing, or coaxing LOCOMOTION: STAIRS - SCORE: 5-SUP COMPREHENSION: COMPREHENSION - SCORE: 0-UNK EXPRESSION EXPRESSION - SCORE: 0-UNK SOCIAL INTERACTION: SOCIAL INTERACTION - SCORE: 0-UNK PROBLEM SOLVING: PROBLEM SOLVING - SCORE: 0-UNK MEMORY: MEMORY - SCORE: 0-UNK SIGNATURE PANEL: The following modified sections: Transfers: Bed, Chair, Wheelchair - Score, Transfers: Toilet - Score , Locomotion: Walk - Score, Locomotion: Wheelchair - Score, Locomotion: Stairs - Score were [electron ically] signed by Grady Brody PTA on MonSep 21 2018 15:57:19 GMT-0600 (Central Standard Time)
--- NOTE | 2018-09-21 15:59 | FAST ---
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 Delmer Gonzalez M.D. ADMISSION DIAGNOSIS: - Orthopaedic Disorders 08 - Unilateral Hip Fracture (08.11) Closed Displaced Midcervical Frcature of Right Femur. EATING: Activity did not occur on this shift EATING - SCORE: 0-UNK GROOMING: Activity did not occur on this shift GROOMING - SCORE: 0-UNK BATHING: Activity did not occur on this shift BATHING - SCORE: 0-UNK DRESSING - UPPER BODY: Activity did not occur on this shift Patient is not dressing in public clothing ARTICLES SCORE Total number of steps: 0 DRESSING - UPPER BODY - SCORE: 0-UNK DRESSING - LOWER BODY: Activity did not occur on this shift Patient is not dressing in public clothing ARTICLES SCORE Total number of steps: 0 DRESSING - LOWER BODY - SCORE: 0-UNK TOILETING: Activity did not occur on this shift TOILETING - SCORE: 0-UNK BLADDER MANAGEMENT: Activity did not occur on this shift BLADDER MANAGEMENT - SCORE: 7-IND BOWEL MANAGEMENT: Activity did not occur on this shift BOWEL MANAGEMENT - SCORE: 7-IND TRANSFERS: BED, CHAIR, WHEELCHAIR: TRANSFERS: BED, CHAIR, WHEELCHAIR - STEP 1: Does the patient require assistance of a person or device, or need extra time with bed, chair, or whe elchair transfers? Yes. TRANSFERS: BED, CHAIR, WHEELCHAIR - STEP 2: Does the patient require the assistance of a helper? Yes. TRANSFERS: BED, CHAIR, WHEELCHAIR - STEP 3: How much assistance does the patient require from the helper? Only supervision TRANSFERS: BED, CHAIR, WHEELCHAIR - SCORE: 5-SUP TRANSFERS: TOILET: Activity did not occur on this shift TRANSFERS: TOILET - SCORE: 0-UNK TRANSFERS: SHOWER: Activity did not occur on this shift TRANSFERS: SHOWER - SCORE: 0-UNK TRANSFERS: TUB: Activity did not occur on this shift TRANSFERS: TUB - SCORE: 0-UNK LOCOMOTION: WALK: LOCOMOTION: WALK - STEP 1: Does the patient need help from a person or device, or need extra time to walk 150 feet? Yes. LOCOMOTION: WALK - STEP 2: How much assistance does the patient require to walk a minimum of 150 feet? Only supervision, cuing, or coaxing LOCOMOTION: WALK - SCORE: 5-SUP LOCOMOTION: WHEELCHAIR: LOCOMOTION: WHEELCHAIR - STEP 1: Does the patient need help to go 150 feet in a wheelchair? Yes. LOCOMOTION: WHEELCHAIR - STEP 2: How much assistance does the patient need from the helper? Only supervision, cuing, or coaxing LOCOMOTION: WHEELCHAIR - SCORE: 5-SUP LOCOMOTION: STAIRS: LOCOMOTION: STAIRS - STEP 1: Does the patient need help to go up and down 12 to 14 stairs? Yes. LOCOMOTION: STAIRS - STEP 2: How much assistance does the patient need from the helper to go a minimum of 12 to 14 stairs? Only mchugh pervision, cuing, or coaxing LOCOMOTION: STAIRS - SCORE: 5-SUP COMPREHENSION: COMPREHENSION - SCORE: 0-UNK EXPRESSION EXPRESSION - SCORE: 0-UNK SOCIAL INTERACTION: SOCIAL INTERACTION - SCORE: 0-UNK PROBLEM SOLVING: PROBLEM SOLVING - SCORE: 0-UNK MEMORY: MEMORY - SCORE: 0-UNK SIGNATURE PANEL: The following modified sections: Transfers: Bed, Chair, Wheelchair - Score, Transfers: Toilet - Score , Locomotion: Walk - Score, Locomotion: Wheelchair - Score, Locomotion: Stairs - Score were [chandu baugh] signed by Grady Brody PTA on MonSep 21 2018 15:58:33 GMT-0600 (Central Standard Time)
== END 2018-09-21 14:10 | disposition home or self-care (01) | DRG 561 ==
LOC: 5TH 17:29
PROVIDERS: ADMIT Psychiatry & Neurology Neurology with Special Qualifications in Child Neurology; ATTEND Psychiatry & Neurology Neurology with Special Qualifications in Child Neurology
DX: S72.8X1D Other fracture of right femur, subsequent encounter for closed fracture with routine healing (principal); E11.42 Type 2 diabetes mellitus with diabetic polyneuropathy; I10 Essential (primary) hypertension; E78.5 Hyperlipidemia, unspecified; I25.10 Atherosclerotic heart disease of native coronary artery without angina pectoris; I50.9 Heart failure, unspecified; G30.9 Alzheimer's disease, unspecified; F02.80 Dementia in other diseases classified elsewhere, unspecified severity, without behavioral disturbance, psychotic disturbance, mood disturbance, and anxiety; E03.9 Hypothyroidism, unspecified; G47.33 Obstructive sleep apnea (adult) (pediatric); I25.2 Old myocardial infarction
CPT/HCPCS: 36415; 80048; 80162; 81001; 81003; 81015; 82040; 82962; 83735; 84134; 85025; 87077; 87086; 87088; 87186; 92523; 97110; 97112; 97116; 97150; 97162; 97167; 97530; 97542; G0008; J1650; Q2035

== ENCOUNTER 2021-02-23 17:37 | Inpatient (IN) | payer OTHER ==
--- OUTSIDE RECORDS SUMMARY | 2021-02-23 17:45 | XMS REPORT | Continuity of Care Document ---
:1945 Author Organization [facility] t Address [address] [place] [address] Support Name Relationship Address Phone N Employer [address] [place] [address] TIANA Unavailable [address] [phone] [place] [address] TOMMY Unavailable [address] [phone] [place] [address] CHANDLER Fields MD. S Primary Care Physician [address] [facility]. [address] [place] [address] SUZE CHILDS MD A Emergency Provider [address] [facility] [place] [address] OLGA Child [address] [place] [address] JULIOCESAR CHILDS Emergency Provider [address] [place] [address] NICKI SUE M.D. Attending Provider [address] [facility] [phone] [place] [address] BRII CHILDS, G Primary Care Physician [address] [phone] [place] [address] KM CHILDS, O Attending Provider [address] [facility] [address] [place] [address] DO YVONNE Emergency Provider [address] [facility].[email or web address] [email or web address], [place] [address] L.COM MD VICKIE Emergency Provider [address] [place] [address] MD CHANDLER. Primary Care Physician [address] [place] [id number] DEBBIE RUIZ MD E Admitting Provider [address] [phone] [place] [address] Olga ZAVALETA [address] [place] [address] Care Team Providers Name Role Phone Ashleigh Arteaga MD Primary Care Physician Ryan Watson DO Attending Clinician Ashleigh Arteaga MD Attending Clinician MD ASHLEIGH ARTEAGA Attending Clinician Unavailable ASHLY Attending Clinician Unavailable Olayinka Ferrara MD Attending Clinician AYANA HAMM Attending Clinician Unavailable Ayana Hamm MD Attending Clinician Lester Smalls DO Attending Clinician Jahaira Ghosh MD Attending Clinician LESTER SMALLS Attending Clinician Unavailable Shlomo Monroy MD Attending Clinician JAHAIRA GHOSH Attending Clinician Unavailable CHANDLER Admitting Clinician Unavailable MD ASHLEIGH ARTEAGA Admitting Clinician Unavailable JAHAIRA GHOSH Admitting Clinician Unavailable Payers Payer Name Policy Type Policy Effective Date Expiration Date Sour ce Number MEDICAREMEDICARE PART [id number] Norm roscoe Queen AND 00:00:00 [place]into [id number] [place] [id number] EFRAÍN Olson [id number] 2011- 00:00:00 - Nilton bledsoe PresentMedicare Center Problems Condition Condition Condition Status Onset Resolution Last Treating Co mments Source Name Details Category Date Date Treatment Clinician Date Sepsis Sepsis Disease Active [place] secondary secondary 01-06 [place] to UTI to UTI 00:00: st 00 Acute Acute Disease Active EFRAÍN Blackburn congestive congestive 04-23 Iza kes - heart heart 00:00: Medical failure, failure, 00 Center unspecifie unspecifie d heart d heart failure failure type type General General Disease Active [place] weakness weakness 108 Method i 00:00: st 00 Pneumonia Pneumonia Disease Active Debbi ston 1 Methodi 00:00: st 00 Closed Closed Disease Active Overview: bAhijeet n displaced displaced 09-06 Formattin M ethodi midcervica midcervica 00:00: g of this st l fracture l fracture 00 note of right of right might be femur femur different from the original. Added automatic ally from request for surgery [id number] Closed Closed Disease Active [place] right hip right hip 09-05 [place] fracture fracture 00:00: st 00 Allergies, Adverse Reactions, Alerts Allergy Allergy Status Severity Reaction(s) Onset Inactive Treating Comm ents Source Name Type Date Date Clinician No Known DA Active [facility] Allergie 04-15 [place] [facility] 00:00: [address] Center Family History Family Member Diagnosis Comments Start Date Stop Date Source Natural brother Alzheimer's disease [place] Shinto Natural father Diabetes [facility] thodist Natural father Heart attack [place] [facility]into Natural father Heart disease [place] [facility]into Natural father Hypertension [place] [facility]into Natural father Parkinsonism [place] [facility]into Natural mother Alzheimer's disease [place] [facility] Natural mother Diabetes [facility] thodist Natural mother Heart disease [place] Shinto Natural [facility] Social History Social Habit Start Date Stop Date Quantity Comments Source History SDOH [facility] Std Dr[facility] History SDOH [facility] - Alcohol Binge Medical Brenda ter Tobacco use and 2021-01-06 2021-01-06 Never used Alexandru ethodist exposure 00:00:00 00:00:00 Alcohol intake 2021-01-06 2021-01-06 Current [facility] thodist 00:00:00 00:00:00 non-drinker of alcohol (finding) History SDOH 2020-04-23 2020-04-[address] [facility] - Alcohol Frequency 00:00:00 00:00:00 Medical Center Sex [birth year] At [birth year] Alexandru Callaway ethodist 00:00:00 00:00:00 Smoking Status Start Date Stop Date Source [facility] Ordered Filled Start Stop Current Ordering Indication Dosage Frequency Signature Comments Components Source Medication Medication Date Date Medication? Clinician (SIG) Name Name lidocaine 2020- No 1{patch Q24H Place 1 H livan (LIDODERM) 6-05 07-05 } patch on [place] 5 % 00:00: 23:[address] 00 :00 daily for 30 days. Remove & Discard patch within 12 hours or as directed by BUMETanide 2020- No 1mg Q2D Take 1 mg H oudonaldo (BUMEX) 1 6- 06-04 by mouth Metho di MG tablet 20:02: 00:[address] 51 :00 other day. spironolact 2020- No 100mg Q2D Take 100 [place] one 6-04 06-04 mg by Methodi (ALDACTONE) 20:02: 00:[address] 100 MG 51 :00 every tablet other day. Nilton [place] Munguia. Takes one half on these days metFORMIN Yes 1000mg Q.5D Take 1,000 [place] (GLUCOPHAGE 6-04 mg by Methodi ) 1,000 mg 20:02: mouth 2 st tablet 49 (two) times a day with meals. aspirin Yes 81mg QD Take 81 mg [place] (ECOTRIN) 6-04 by mouth Method i 81 MG 20:02: nightly. st enteric 49 coated tablet multivitami Yes 1{tbl} QD Take 1 [place] n with 6-04 tablet by Methodi minerals 20:02: mouth st tablet 49 daily. docusate Yes 100mg QD Take 100 [place] sodium 6-04 mg by Methodi (COLACE) 20:02: mouth st 100 MG 49 daily. capsule docosahexae Yes 2{tbl} Q.5D Take 2 [place] noic 6-04 tablets by Methodi acid/epa 20:02: mouth 2 st (FISH OIL 49 (two) ORAL) times a day. daily levothyroxi Yes 250ug QD Take 250 [place] ne 6-04 mcg by Methodi (SYNTHROID) 20:02: mouth st 200 mcg 49 every tablet morning. insulin Yes 53U Q.5D Inject 53 [place] 70/30 NPH 6-04 Units Methodi and regular 20:02: under the s t human 49 skin 2 (HumuLIN (two) 70/30) 100 times a unit/mL day. 53 u (70-30) daily injection FERROUS Yes 1{tbl} QD Take 1 [place] SULFATE 6-04 tablet by Methodi ORAL 20:02: mouth st 49 daily. fluticasone Yes 1{puff} QD Inhale 1 [place] /umeclidin/ 6-04 puff Methodi vilanter 20:02: daily. st (TRELEGY 49 ELLIPTA INHL) cefpodoxime Yes 100mg Q.5D Take 1 Debbi ston (VANTIN) 6-04 tablet Methodi 100 MG 00:00: ([address] tablet 00 total) by mouth 2 (two) times a day for 7 days. rosuvastati Yes 10mg QD Take 2 [place] (CRESTOR) 6-04 tablets Metho di 5 mg tablet 00:00: ([address] 00 total) by mouth daily. ezetimibe Yes 10mg QD Take 1 [place] (ZETIA) 10 - tablet (10 Met hodi mg tablet 00:00: mg total) st 00 by mouth daily. carvediloL 2020- No 6.25mg Q.5D Take 1 [place] (COREG) 01-08- tablet Methodi 6.25 MG 00:00: 23:59 (6.[address] tablet 00 :00 total) by mouth 2 (two) times a day for 30 days. gabapentin 2020- No 100mg Q.[id number] Take 1 [place] (NEURONTIN) 01-08- [id number] capsule Methodi 100 mg 00:00: 23:59 3D ([address] capsule 00 :00 total) by mouth 3 (three) times a day for 30 days. loratadine 2020- No 10mg QD Take 10 mg [place] (CLARITIN) 01-06 by mouth [place] 10 mg 02:25: 00:[address] tablet 40 :00 simvastatin 2020- No QD daily. 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 ferrous 2020- No Iron 325mg Q.5D Take 1 [place] sulfate 325 08-29 deficiency tablet Methodi (65 FE) MG 00:00: 00:00 anemia, ([address] tablet 00 :00 unspecified total) by iron mouth 2 deficiency (two) anemia type times a day with meals for 90 days. cyanocobala Yes Low serum 1000ug [place] min 08-27 vitamin B12 Methodi injection 12:45: st 1,000 mcg 00 cholecalcif 2020- No Take by Norm barrow 08-27 mouth. Methodi vitamin D3, 11:13: 00:[address] (Vitamin 44 :00 D3) 125 mcg (5,000 unit) tablet ZINC ORAL 2020- No Take by Jabari varela 08-27 mouth. Methodi 11:13: 00:[address] 44 :00 thiamine 2020- No Take by Leandra on HCl 08-27 mouth. Methodi (VITAMIN 11:13: 00:[address] B-1 ORAL) 44 :00 galantamine Yes 16mg Take [address] (RAZADYNE -07 by mouth [facility] - ER) 16 MG 01:58: daily with Ne dical 24 hr 39 breakfast. Center capsule albuterol Yes 1{puff} Inhale [address] HFA 1-07 puff by [facility] - (VENTOLIN 01:58: mouth via Med ical HFA) 90 39 inhaler Center mcg/actuati every 6 on inhaler (six) hours as needed for Wheezing. nebulizer Yes Accessorie [facility] accessories 1-07 s to use Luke s - Kit 00:00: with Medical 00 nebulizer Center machine. nebulizer Yes [address] and 1-07 nebulizer [facility] - compressor 00:00: machine to Nilton Vasquez 00 use for Center breathing treatments .. nebulizer Yes Accessorie Norm malhotra accessories 1-07 s to use [place] kit 00:00: with st 00 nebulizer machine. nebulizer Yes 1 [place] and 08-13 nebulizer Methodi compressor 00:00: machine to s t device 00 use for breathing treatments .. albuterol 2021- No 2.5mg Take 0.[address] (PROVENTIL, 08-13 mLs (2.5 Jaylen es - VENTOLIN) 5 00:00: 23:59 mg total) Medical mg/mL 00 :00 by Center nebulizer nebulizati solution on every 6 (six) hours as needed for Wheezing. albuterol No 2.5mg Inhale 2.5 [place] (PROVENTIL) 08-13 mg as Method i 5 mg/mL 00:00: 23:[address] nebulizer 00 :00 solution predniSONE 2020- No 50mg QD Take [address] (DELTASONE) 08-13-12 tablet (50 L ukes - 50 MG 00:00: 23:59 mg total) Medica l tablet 00 :00 by mouth Center daily for 5 days. aspirin 81 Yes 81mg QD Take [address] MG EC 1-06 by mouth [facility] - tablet 21:30: daily . [facility] 02 Center insulin NPH Yes 50U Inject [address] (NOVOLIN N 1-06 Units [facility]ukes - FLEXPEN) 21:30: subcutaneo Med ical 100 unit/mL [address] [place] [address] 2 Ava (3 mL) InPn (two) times daily before meals. multivitami Yes 1{tbl} QD Take [address] n with 1-06 tablet by [facility]ukes - minerals 19:24: mouth Medical tablet 59 daily . Center levothyroxi Yes 200ug Take [address] ne 1-06 mcg by Lukes - (SYNTHROID, 19:24: mouth Medic al LEVOTHROID) 59 Every Center 200 MCG morning on tablet an empty stomach . omega-3 Yes 2g Q.5D Take [address] fatty acids 1-06 by mouth 2 Iza kes - (FISH OIL 19:24: (two) Medical CONCENTRATE 59 times Center ) 1,000 mg daily. Cap docusate Yes 100mg QD Take [address] sodium 1-06 mg by Lukes - (COLACE) 19:24: mouth Medical 100 MG 59 daily. Center capsule bumetanide No 1mg QD Take [address] (BUMEX) 1 04-24 by mouth [facility] - MG tablet 13:31: 00:00 daily . Medi jamin 57 :00 Center bumetanide Yes 1mg Q.5D Take 1 [facility] t (BUMEX) 1 04-24 tablet (1 [facility] - MG tablet 00:00: mg total) Med ical 00 by mouth 2 Center (two) times daily. losartan No 25mg QD Take [address] (COZAAR) 25 04-24 tablet (25 L ukes - MG tablet 00:00: 23:59 mg total) Me dical 00 :00 by mouth Center daily. nitroglycer No Put [address] in 04-24 under Lukes - (NITROSTAT) 00:00: 23:59 tongue Med ical 0.4 MG SL 00 :00 every 5min Cent er tablet as needed for chest pain.No more than 3 doses in 15min.Call 911 if pain unrelieved 5min after 1st dose. ferrous No 300mg Q.5D Take [address] sulfate 300 04-24 (300 mg Luke s - mg (60 mg 00:00: 23:59 total) by Ne dical iron)/5 mL 00 :00 mouth 2 Center syrup (two) times daily. spironolact 2019- No 100mg Take [address] one 04-23 mg by Lukes - (ALDACTONE) 22:17: 00:00 mouth. Med ical 100 MG 09 :00 Center tablet loratadine 2019- No 10mg Take [address] (CLARITIN) 04-23 by mouth. Jaylen es - 10 mg 22:16: 00:00 Medical tablet 08 :00 Center ranolazine Yes 500mg Q.5D Take [address] (RANEXA) 9-05 mg by [facility] - 500 MG 12 00:00: mouth 2 Medic al hr tablet 00 (two) Center times daily. potassium 2020-0 Yes TAKE [address] [facility] chloride SA 9-05 TABLET BY Jaylen es - (K-DUR,KLOR 00:00: MOUTH ONCE Medical -CON) 20 00 DAILY WITH Cente r MEQ tablet BUMETANIDE DIRECTED ranolazine 2020-0 Yes 500mg Q.5D Take 500 [place] (RANEXA) 9-05 mg by Methodi 500 MG 12 00:00: mouth 2 st hr ER 00 (two) tablet times a day. spironolact 2020-0 Yes TAKE [address] [facility] one 9-04 TABLET BY Wesley - (ALDACTONE) 00:00: MOUTH ONCE Medical 25 MG 00 DAILY WITH Center tablet FOOD EVERY Monday AND MONDAY citalopram 2020-0 Yes 40mg QD Take [address] (CELEXA) 40 8-29 by mouth Luke s - MG tablet 00:00: daily FOR [facility] ical 00 DEPRESSION Center . citalopram 2020-0 Yes 40mg QD Take 40 mg [place] (CeleXA) 40 8-29 by mouth [place] MG tablet 00:00: daily. st 00 metoprolol 2020-0 Yes 25mg QD Take [address] tartrate 8-28 by mouth [facility]ukes - (LOPRESSOR) 00:00: daily. Medi jamin 25 MG 00 Center tablet metoprolol 2020-0 2020- No 25mg QD Take 25 mg [place] tartrate 8-28 06-04 by mouth Method i (LOPRESSOR) 00:00: 00:[address] 25 mg 00 :00 tablet metFORMIN 2020-0 Yes 1000mg Take 1,[address] (GLUCOPHAGE 8-25 mg by [facility]ukes - ) 1000 MG 00:00: mouth 2 Medic al tablet 00 (two) Center times daily with breakfast and dinner . clopidogreL 2020-0 Yes 75mg QD Take [address] (PLAVIX) 75 7-29 by mouth Luke s - mg tablet 00:00: daily. Medica l 00 Center clopidogreL 2020-0 Yes 75mg QD Take 75 mg [place] (PLAVIX) 75 7-29 by mouth [place] mg tablet 00:00: daily. st 00 rosuvastati 2020-0 Yes 10mg QD Take [address] n (CRESTOR) 7-28 by mouth Luke s - 5 MG tablet 00:00: daily . Med ical 00 Ava ezetimibe Yes TAKE [address] (ZETIA) 10 03-03 TABLET BY Luke s - mg tablet 00:00: MOUTH ONCE Me dical 00 DAILY FOR Center HIGH CHOLESTERO L ezetimibe 2020- No QD daily. [place] (ZETIA) 10 03-03 Methodi mg tablet 00:00: 00:00 st 00 :00 rosuvastati 2020- No 10mg QD Take 10 mg [place] n (CRESTOR) 03-03 by mouth Met hodi 5 mg tablet 00:00: 00:[address] 00 :00 clopidogrel 2019- No 75mg QD Take 75 mg [place] (PLAVIX) 75 02-24 by mouth Met hodi mg tablet 09:36: 00:[address] 45 :00 citalopram 2019- No 20mg QD Take 20 mg [place] (CeleXA) 20 02-24 by mouth Met hodi MG tablet 09:35: 00:[address] 35 :00 insulin NPH No 51U QD Inject 51 [place] (HumuLIN-N) 02-24 Units Method i 100 unit/mL 09:35: 00:[address] injection 25 :00 skin daily before breakfast. cholecalcif 2019- No 5000U QD Take 5,000 [place] pushpa, 02-24 Units by Methodi vitamin D3, 09:28: 00:[address] (VITAMIN 44 :00 daily. D3) 1,000 unit capsule primidone No 250mg QD Take [address] (MYSOLINE) 02-24 mg by [facility] - 50 MG 00:00: 23:59 mouth Medical tablet 00 :00 nightly . Ava primidone No Essential 150mg QD Take 3 [place] (MYSOLINE) 02-24 tremor tablets Met hodi 50 MG 00:00: 23:59 ([address] tablet 00 :00 total) by mouth nightly. galantamine 2019- No Late onset 8mg QD Take 1 [place] ER 02-24 Alzheimer's capsule (8 M ethodi (RAZADYNE 00:00: 23:59 disease mg total) st ER) 8 MG 24 00 :00 with by mouth hr capsule behavioral daily with disturbance breakfast (HCC) for 30 days. primidone Essential 150mg QD Take 3 [place] (MYSOLINE) 02-26 tremor tablets Met hodi 50 MG 00:00: 00:00 ([address] tablet 00 :00 total) by mouth nightly. Immunizations Ordered Immunization Filled Immunization Date Status Commen ts Source Name Name PFIZER COVID-19 MRNA 2020-11-27 Completed [place] VACCINATION 00:00:00 Shinto FLUZONE HIGH-DOSE PF 2019-08-14 Completed [place] 00:00:00 Shinto Vital Signs Vital Name Observation Time Observation Value Comments Source Systolic blood 2021-01-08 11:26:17 132 mm[Hg] Jabarito n Shinto pressure Diastolic blood 2021-01-08 11:26:17 61 mm[Hg] Leandra on Shinto pressure Heart rate 2021-01-08 11:26:17 67 /min Alexandru Angulo Body temperature 2021-01-08 11:26:17 36.89 Jillian [facility] Shinto Respiratory rate 2021-01-08 11:26:17 16 /min [facility] Shinto Oxygen saturation in 2021-01-08 11:26:17 95 /min [facility] Arterial blood by Pulse oximetry Body weight 2021-01-08 06:32:00 90.13 kg [place] Shinto BMI 2021-01-08 06:32:00 30.21 kg/m2 [place] Shinto Body height 2021-01-06 02:13:00 172.7 cm [place] Shinto Systolic blood 2020-08-13 02:00:00 133 mm[Hg] [facility] Diastolic blood 2020-08-13 02:00:00 78 mm[Hg] [facility] S t [facility] Heart rate 2020-08-13 02:00:00 87 /min [facility] Body temperature 2020-08-13 02:00:00 36.89 Jillian [facility] Respiratory rate 2020-08-13 02:00:00 22 /min [facility] Oxygen saturation in 2020-08-13 02:00:00 100 /min [facility] - Arterial blood by Medical Ce nter Pulse oximetry Body height 2020-08-12 02:02:00 172.7 cm [facility] Body weight 2020-08-12 02:02:00 92.987 kg [facility] BMI 2020-08-12 02:02:00 31.17 kg/m2 [facility] Procedures Procedure Date / Time Performing Clinician Source Performed POC GLUCOSE 2021-01-08 16:03:00 Jose Arteaga [facility] POC GLUCOSE 2021-01-08 11:25:00 Jose Arteaga [facility] POC GLUCOSE 2021-01-08 08:06:00 Jose Arteaga [facility] HC COMPLETE BLD COUNT 2021-01-08 05:11:00 Finesse Rodrigez Shinto W/AUTO DIFF BASIC METABOLIC PANEL 2021-01-08 05:11:00 Finesse Rodrigez Shinto MAGNESIUM LEVEL 2021-01-08 05:11:00 Rosamaria Walsh ESTIMATED GFR 2021-01-08 05:11:00 Finesse Rodrigez [facility] POC GLUCOSE 2021-01-07 20:16:00 Jose Arteaga [facility] POC GLUCOSE 2021-01-07 16:30:00 Jose Arteaga Ne [facility]odist POC GLUCOSE 2021-01-07 11:17:00 Jose Arteaga [facility] POC GLUCOSE 2021-01-07 07:16:00 Jose Arteaga Ne [facility]odist HC COMPLETE BLD COUNT 2021-01-07 03:04:00 Finesse Rodrigez Shinto W/AUTO DIFF BASIC METABOLIC PANEL 2021-01-07 03:04:00 Finesse Rodrigez Shinto MAGNESIUM LEVEL 2021-01-07 03:04:00 Rosamaria Walsh ESTIMATED GFR 2021-01-07 03:04:00 Finesse Rodrigez [facility] POC GLUCOSE 2021-01-06 20:37:00 ChandlerJose hearn Me thodist POC GLUCOSE 2021-01-06 16:30:00 ChandlerJose hearnevita [facility] XR LUMBAR SPINE 2 OR 3 VW 2021-01-06 11:53:57 Finesse Rodrigez POC GLUCOSE 2021-01-06 11:05:00 Chandler Chrislawrence Ashleigh [facility] POC GLUCOSE 2021-01-06 07:11:00 Chandler Jose [facility] LACTIC ACID LEVEL, SEPSIS 2021-01-06 06:10:00 Ambreen Watson - NOW AND REPEAT 2X EVERY Ryan 3 HOURS TROPONIN 2021-01-06 06:10:00 Ambreen Watson [facility]odist Ryan POC GLUCOSE 2021-01-06 03:01:00 Chandler Jose [facility] URINE CULTURE 2021-01-06 02:39:00 Ambreen Watson [facility] Ryan LACTIC ACID LEVEL, SEPSIS 2021-01-06 02:35:00 Ambreen Watson - NOW AND REPEAT 2X EVERY Ryan 3 HOURS HEMOGLOBIN A1C 2021-01-06 02:35:00 Finesse Rodrigez Ne [facility]odist HC COMPLETE BLD COUNT 2021-01-06 02:35:00 Finesse Rodrigez Shinto W/AUTO DIFF BASIC METABOLIC PANEL 2021-01-06 02:35:00 Finesse Rodrigez Shinto ESTIMATED GFR 2021-01-06 02:35:00 Finesse Rodrigez [facility] POC GLUCOSE 2021-01-06 02:17:00 Jose Arteaga [facility] COVID-19 QUALITATIVE 2021-01-06 01:05:00 Ambreen Watson on Shinto RT-PCR Ryan TROPONIN 2021-01-06 01:05:00 Ambreen Watson Ne [facility]odist Ryan LACTIC ACID LEVEL 2021-01-05 23:42:[address] HEAD WO CONTRAST 2021-01-05 23:16:15 Ambreen Watsonmood URINALYSIS SCREEN AND 2021-01-05 22:59:00 Ambreen Watson MICROSCOPY, WITH REFLEX Ryan TO CULTURE BLOOD CULTURE, AEROBIC & 2021-01-05 22:39:00 Ambreen Watson ANAEROBIC Ryan LACTIC ACID LEVEL, SEPSIS 2021-01-05 22:38:00 Ambreen Watson - NOW AND REPEAT 2X EVERY Ryan 3 HOURS XR CHEST 1 VW PORTABLE 2021-01-05 22:30:26 Ambreen Watson Ryan BLOOD CULTURE, AEROBIC & 2021-01-05 22:30:00 Ambreen Watson ANAEROBIC Ryan HC COMPLETE BLD COUNT 2021-01-05 22:20:00 Ambreen Watson W/AUTO DIFF Ryan PROTHROMBIN TIME WITH INR 2021-01-05 22:20:00 Ambreen Watson Ryan PARTIAL THROMBOPLASTIN 2021-01-05 22:20:00 Ambreen Watson TIME (PTT) Ryan COMPREHENSIVE METABOLIC 2021-01-05 22:20:00 Ambreen Watson PANEL Ryan LIPASE LEVEL 2021-01-05 22:20:00 Ambreen Watson [facility] Ryan TROPONIN 2021-01-05 22:20:00 Ambreen Watson [facility] Ryan B NATRIURETIC PEPTIDE 2021-01-05 22:20:00 Ambreen Watson Ryan THYROID STIMULATING 2021-01-05 22:20:00 Ambreen Watson HORMONE Ryan T4, FREE 2021-01-05 22:20:00 Ambreen Watson [facility] Ryan ESTIMATED GFR 2021-01-05 22:20:00 Ambreen Watson [facility] Ryan ECG 12-LEAD 2021-01-05 22:05:43 Ambreen Watson [facility] Ryan ECG ED PRELIMINARY 2021-01-05 22:05:10 Ambreen Watson Shinto INTERPRETATION Ryan IMMUNOGLOBULIN E 2020-11-27 12:10:00 Shiraz Ayoub HC COMPLETE BLD COUNT 2020-11-27 12:10:00 Shiraz Ayoub Shinto W/AUTO DIFF SARS-COV2/INFLUENZA/RSV 2020-08-12 22:08:00 Diane Franklin [facility] - RT-PCR [facility] BLOOD CULTURE 2020-08-12 22:08:00 Georgia Franklin [facility] CBC W/PLT COUNT & AUTO 2020-08-12 22:08:00 Georgia Franklin [facility] DIFFERENTIAL [facility] LACTIC ACID, VENOUS 2020-08-12 22:08:00 Georgia Franklin [facility] COMPREHENSIVE METABOLIC 2020-08-12 22:08:00 Diane Franklin [facility] PANEL [facility] PROTHROMBIN TIME/INR 2020-08-12 22:08:00 Georgia Franklin [facility] APTT 2020-08-12 22:08:00 Georgia Franklin [facility] B-TYPE NATRIURETIC FACTOR 2020-08-12 22:08:00 Liset Franklin [facility] (BNP) [facility] TROPONIN I 2020-08-12 22:08:00 Georgia Franklin [facility] ED ECG INTERPRETATION 2020-08-12 20:27:34 Arturo Hamm [facility] URINE CULTURE 2020-08-12 20:25:00 Arturo Hamm [facility] URINALYSIS W/ REFLEX 2020-08-12 20:25:00 Arturo Hamm [facility] URINE CULTURE [facility] XR CHEST PA OR AP 1 VIEW 2020-08-12 19:22:00 Arturo Hamm [facility] IN DEPT. Medical Center REPORT OF PROCEDURE - 2020-08-12 00:00:00 Provider, Default [facility] ENDOSCOPY SCAN Scanning [facility] REPORT OF PROCEDURE - 2020-04-27 14:50:18 Provider, Default [facility] ENDOSCOPY SCAN Scanning [facility] RHYTHM STRIP - SCAN 2020-04-27 14:50:16 Provider, Default [facility] POCT-GLUCOSE METER 2020-04-25 11:27:00 Sarai Ghosh [facility] POCT-GLUCOSE METER 2020-04-25 05:47:00 Sarai Ghosh [facility] POCT-GLUCOSE METER 2020-04-24 20:36:00 Sarai Ghosh [facility] POCT-GLUCOSE METER 2020-04-24 17:03:00 Sarai Ghosh [facility] POCT-GLUCOSE METER 2020-04-24 12:19:00 Sarai Ghosh [facility] B-TYPE NATRIURETIC FACTOR 2020-04-24 12:06:00 Sarai Ghosh [facility] (BNP) [facility] 2D ECHO W/ DOPPLER 2020-04-24 09:20:33 Trung Monroy [facility] (CW/PW/COLOR) [facility] POCT-GLUCOSE METER 2020-04-24 05:40:00 Sarai Ghosh [facility] IRON, TIBC, % SAT. 2020-04-24 04:08:00 Sarai Ghosh [facility] (WITHOUT FERRITIN) [facility] r BASIC METABOLIC PANEL (7) 2020-04-24 04:08:00 Sarai Ghosh [facility] CBC W/PLT COUNT & AUTO 2020-04-24 04:08:00 Sarai Ghosh [facility] DIFFERENTIAL [facility] POCT-GLUCOSE METER 2020-04-23 21:22:00 Sarai Ghosh [facility] SARS-COV2/RT-PCR ([facility] & 2020-04-23 15:16:00 Gianfranco Smalls [facility]/ MICROSCOPIC 2020-04-23 15:16:00 Sarai Ghosh [facility] TROPONIN I 2020-04-23 15:15:00 Gianfranco Smalls [facility] TSH/FREE T4 IF INDICATED 2020-04-23 15:15:[address] [facility] C-REACTIVE PROTEIN 2020-04-23 15:15:00 Sarai Ghosh [facility] LIPID PANEL 2020-04-23 [facility]:15[facility] 2020-04-23 [facility]:15[facility] INTERPRETATION 2020-04-23 15:07:00 Gianfranco Smalls [facility] CT CHEST PE TEST DESIGN 2020-04-23 14:42:00 Gianfranco Smalls [facility] XR CHEST 1 VIEW 2020-04-23 12:38:00 Gianfranco Smalls [facility] CBC W/PLT COUNT & AUTO 2020-04-23 12:30:00 Gianfranco Smalls [facility] TROPONIN I 2020-04-23 12:30:00 Gianfranco Smalls [facility] B-TYPE NATRIURETIC FACTOR 2020-04-23 12:30:00 Gianfranco Smalls [facility] (BNP) [facility] CREATININE 2020-04-23 12:30:00 Gianfranco Smalls [facility] BASIC METABOLIC PANEL (7) 2020-04-23 12:30:00 Gianfranco Smalls [facility] HEMOGLOBIN A1C 2020-04-23 12:30:00 Katie Ghoshalexis [facility] ECG 12-LEAD 2020-04-23 12:15:50 Unknown, H[facility]7 [facility] XR CHEST 2 VIEWS 2020-04-06 11:29:00 Trung Monroy [facility] Plan of Care Planned Activity Planned Date Details Comments Source Future Scheduled 2021-04-[address] [facility] - Test 00:00:00 (Season Ended) [code Medical Center = INFLUENZA VACCINE (Season Ended)] Future Scheduled 2021-03-07 INFLUENZA VACCINE [facility] 00:[facility]:00 [code = INFLUENZA VACCINE] Future Scheduled 2020-12-18 COVID-19 VACCINE (2 - [facility] 00:00:00 Pfizer 2-dose series) [code = COVID-19 VACCINE (2 - Pfizer 2-dose series)] Future Scheduled 2020-08-[address] [facility] - Test 00:00:00 (12+) [code = [facility] DEPRESSION SCREENING (12+)] Future Scheduled 2013-02-[address] [facility] 00:00:00 WELLNESS (YEAR 2 or Medical Center FIRST YEAR if no IPPE) [code = MEDICARE ANNUAL WELLNESS (YEAR 2 or FIRST YEAR if no IPPE)] Future Scheduled 2012 PNEUMOCOCCAL 65+ YRS [facility] - Test 00:00:00 (1 of 1 - [facility] [id number] PCV13) [code = PNEUMOCOCCAL 65+ YRS (1 of 1 - [id number] PCV13)] Future Scheduled 1997 SHINGLES VACCINES ([address] [facility] - Test 00:00:00 of 2) [code = [facility] SHINGLES VACCINES (1 of 2)] Future Scheduled [address] [facility] [place] [place] [facility] [place]00 SCREENING [code = BREAST CANCER SCREENING] Future Scheduled 1997 COLONOSCOPY SCREENING [facility] 00:00:00 [code = COLONOSCOPY SCREENING] Future Scheduled 1997 SHINGLES VACCINES [place] 00:00:00 (#1) [code = SHINGLES VACCINES (#1)] Future Scheduled 1966 DTAP/TDAP/TD [facility]ACCINES [facility] 00:[facility]:00 (1 - Tdap) [code = Medical C enter DTAP/TDAP/TD VACCINES (1 - Tdap)] Future Scheduled 1965 HEPATITIS C SCREENING [facility] 00:[facility]:00 [code = HEPATITIS C Medical Center SCREENING] Future Scheduled 1965 Hepatitis C screening [facility] 00:00:00 (procedure) [code = 545869201] Future Scheduled 1959 COVID-19 VACCINE (1) [facility] Test 00:00:00 [code = COVID-[address] VACCINE (1)] Future Scheduled 1957 DIABETES: RETINAL EYE [facility] [facility] 00:00:00 EXAM [code = DIABETES: RETINAL EYE EXAM] Future Scheduled 1957 DIABETIC FOOT EXAM [place] [facility] 00:00:00 [code = DIABETIC FOOT EXAM] Future Scheduled 1957 URINE MICROALBUMIN [facility] 00:00:00 [code = URINE MICROALBUMIN] Future Scheduled 1953 65+ PNEUMOCOCCAL [place] [facility] Test 00:00:00 VACCINE (1 of 2 - PPSV23) [code = 65+ PNEUMOCOCCAL VACCINE (1 of 2 - PPSV23)] Future Scheduled [address] 00:00:00 malignant neoplasm of [facility] breast (procedure) [code = 685921044] Future Scheduled [address] [facility] Test 00:00:00 malignant neoplasm of [facility] colon (procedure) [code = 662072682] Medication 2021-03-22 galantamine ER [place] [facility] 00:00:00 (RAZADYNE ER) 16 MG 24 hr capsule [code = 010973] Encounters Start End Encounter Admission Attending Care Care Encounter Source Date/Time Date/Time Type Type Clinicians Facility Department ID 2021-01-05 2021-01-08 Inpatient JOSE ARTEAGA [facility] [id number] [place] 00:00:00 00:00:[address] 2020-11-27 2020-11-27 Outpatient ASHLY [facility] [id number] [place] 00:00:00 00:00:[address] SHIRAZ [address] 2020-11-27 2020-11-27 Outpatient [facility] [id number] [place] 00:00:00 00:00:[address] 2020-08-27 2020-08-27 Outpatient MICHAELA [facility] [id number] [place] 00:00:00 00:00:[address] 2020-02-25 2020-02-25 Outpatient KM [facility] [id number] [place] 00:00:00 00:00:00 MOHAMMAD [address] 2019-08-09 2019-08-14 Inpatient JOSE ARTEAGA [facility] [id number] [place] 00:00:00 00:00:[address] Results Test Description Test Time Test Comments Results Result Comments Source POC glucose 2021-01-08 16:04:31 Test Item Value Reference Range Interpretation Comme nts POC glucose (test code = 199 mg/dL 65-99 H Ope rator Name: Devin Friedman ID: [id number]) [id number] able: RN Notified Lab Interpretation (test code = Abnormal 42210-2) Alexandru AnguloUrine [id number] 11:18:24 Test Item Value Reference Range Interpretation Comments Urine culture Mixed fernandez Specimen isolate (test 10-4 col/cc InformationSpe [facility] code = 33321-5) Source: Urin eSpecimen Site: Catheteri zed [facility]ru [facility] 12 [id number] 17:50:02 Test Item Value Reference Range Interpretation Comments Ventricular rate (test 72 code = 253) Atrial rate (test code 72 = 255) GA interval (test code 154 = 266) QRSD interval (test 96 code = 260) QT interval (test code 414 = 264) QTC interval (test code 453 = 265) P axis 1 (test code = 58 267) QRS axis 1 (test code = -35 268) T wave axis (test code 106 = 270) EKG impression (test Normal sinus code = 273) rhythm-Left axis deviation-Septal infarct (cited on or before 07-OCT-2014)-Abnormal ECG-In automated comparison with ECG of 09-AUG-2019 20:57,-premature atrial complexes are no longer present-Nonspecific T wave abnormality, worse in Anterior leads- Alexandru Raymundo Lumbar Spine 2 Or 3 [id number] 11:57:55Hm Interface, Radiology Results Incoming - 01/06/2021 12:01 PM CDT EXAMINATION: XR LUMBAR SPINE 2 OR 3 VWCOMPARISON: NoneCLINICAL HISTORY:Low back pain increased fracture risk, low back pain post fall at homeCOMMENTS: Frontal and lateral views lumbar spine are provided.FINDINGS: There is mild anterior spondylosis in the mid and upper lumbar spine. There is mild endplate sclerosis. The alignment is grossly intact. There is a moderatewedge compression deformity at T12. This appears to been present on falafel cart cook films of the chest dating [address]IMPRESSION: The deformity at T12 appears to be chronic based on falafel cart cook films of previous chest CT.[id number] VyecgwimySXLL-AeC-2 (COVID-19) RNA [Presence] in Respiratory specimen by RABIA with probe [id number] 07:53:54 Test Item Value Reference Range Interpretation Comments SARS-CoV-2 (COVID-19) RNA Not detected Not-Detected [Presence] in Respiratory specimen by RABIA with probe detection (test code = 47415-4) Whether patient is employed in a healthcare setting (test code = 40160-8) Whether the patient has symptoms related to condition of interest (test code = 05363-2) Patient was hospitalized because of this condition (test code = 52528-6) Whether the patient was admitted to intensive care unit (ICU) for condition of interest (test code = 51444-3) Whether patient resides in a congregate care setting (test code = 61271-7) CT Head Wo [id number] 23:28:37Hm Interface, Radiology Results 01/05/2021 11:31 PM CDT EXAMINATION: CT HEAD WO CONTRASTCLINICAL HISTORY: intermittent confusionCOMPARISON: Brain MRI dated 03/06/2018TECHNIQUE: Noncontrast head CT performed using radiation dose reduction techniques. Technical factors are evaluated and adjusted to ensure appropriate moderation of exposure. Automated dose management technology is applied to adjust radiation exposure while achiev ing a diagnostic quality image. FINDINGS:No evidence of acute intracranial hemorrhage, mass, mass effect, midline shift, or acute infarct. Ventricles and sulci are normal in appearance for patient's age. Basal cisterns are clear. Intracranial atherosclerosis. Calvarium is intact.Bilateral lens extractions. No significant paranasal sinus mucosal thickening. Mastoid air cells are clear. IMPRESSION:NoCT evidence of acute intracranial abnormality.[facility]- [id number] and approved by radiology therapist/fellow: Trung Kulkarni M.D.I, Compa Johnson M.D., personally reviewed the images and resident's/fellow's findings and agree with the final report.[facility] 1 Vw [id number] 22:34:34Hm Interface, Radiology Results - 01/05/2021 10:37 PM CDT EXAMINATION: XR CHEST 1 VW PORTABLECLINICAL HISTORY: 75 years Female SOBCOMPARISON: August 14, 2019IMPRESSION:Cardiomediastinal silhouette is unchanged. The lungs are clearAge related changes in the osseous structures.Moderate calcified atherosclerotic vascular disease throughout the arterial structures . .[facility] ED Preliminary Interpretation - Not an [id number] 22:05:10 Test Item Value Reference Range Interpretation Comments YOANNA (test code = YOANNA) Ambreen Watson DO 01/06/2021 6:55 [facility] ED Preliminary Interpretation - Not an OrderPerformed by: Ambreen Watson DOAuthorized by: Ambreen Watson DO ECG reviewed by ED Physician in the absence of a dairy husbandry worker: yes Interpretation: Interpretation: abnormal Rate: ECG rate: 72 ECG rate assessment: normal Rhythm: Rhythm: sinus rhythm QRS: QRS axis: LeftComments: NSR with LAD but no STEMI Lab Interpretation Abnormal (test code = 26522-2) Alexandru AnguloCOVID 19 Asymptomatic IH [id number] 11:00:00 Test Item Value Reference Range Interpretation Comments COVID 19 NEGATIVE Negative "Negative resul ts from Asymptomatic IH AG patients with symptom (test code = onset beyondfiv e days, COVNONPUIAG) should be kerrie ana as presumptive, andconfirmation with a molecular assay , if necessary forpa tient management may be performed. Nega tive results do notr ule out COVID-19 and sh ould not be used as the sole basisfor treatm ent or patient managem ent decisions, includinginfect ion control decisio ns. Negative result s should beconsidered in the context of a pa tients recent exposure s,history, and the presenc e of clinical signs and symptomsconsist ent with COVID-19.This t est detects both vi able andnon-viable S ARS-CoV and SARS CoV-2. Test performance dep endson the amount of virus (antigen) in the sample." Blood Culture # 01:01:00 Test Item Value Reference Range Interpretation Comments Result (test code = No growth in 5 days 6463-4) [facility] [id number] 01:01:00 Test Item Value Reference Range Interpretation Comments CULTURE (BEAKER) (test No growth in 5 days code = 1095) BLOOD [id number] 01:01:00 Test Item Value Reference Range Interpretation Comments CULTURE (BEAKER) (test No growth in 5 days code = 1095) Urine [id number] 08:23:00 Test Item Value Reference Range Interpretation Comments Result (test code = >100,000 col/mL skin 6463-4) fernandez [facility] [id number] 08:23:00 Test Item Value Reference Range Interpretation Comments CULTURE (BEAKER) (test >100,000 col/mL skin code = 1095) fernandez SARS-CoV2/Influenza/RSV RT-PCR (Symptomatic ONLY)2020-08-12 23:04:00 Test Item Value Reference Range Interpretation Comments SARS-COV2/RT-PCR (test Negative Negative code = 34023-5) Influenza A RT-PCR Negative Negative (test code = 93601-0) Influenza B RT-PCR Negative Negative (test code = 69967-3) RSV by RT-PCR (test Negative Negative Performa nce of the code = 83254-2) Xpert Xpress SARS-CoV-2/Flu/ RSV test has only been established in nasopharyngeal swab specimens. Use of the Xpert Xpress SARS-CoV-2/Flu/ RSV test with other spec imen types has not b een assessed and performance characteristics are unknown. As wi th any molecular test, mutations withi n the targeted geneti c regions identif ied by the Xpert Xpres s SARS-CoV-2/Flu/ RSV test could affect pr velma and/or probe bi nding resulting in fa ilure to detect the pres ence of virus or the vi lance being detected less predictably.Neg ative results do not preclude SARS-CoV-2, Inf luenza A/B, or RSV inf ection and should not be used as the sole bas is for treatment or ot her patient managem ent decisions. Res ults from the Xpert Xpress SARS-CoV-2/Flu/ RSV test should be corre lated with the clinic al history, epidemiological data, and other data available to th e clinician evalu ating the patient. I nvalid test results ma y occur from improper s pecimen collection; radha lure to follow the deborah mmended sample collecti on, handling, and s torage procedures; tesha hnical error. False ne gative results may occ ur if virus is presen t at levels below th e analytical limi t of detection (LOD: 131 copies/mL). Vi ral nucleic acid ma y persist in vivo , independent of virus viability. Dete ction of analyte target( s) does not imply that the corresponding v irus(es) are infectious or are the causative a gents for clinical sy mptoms. Recent patient exposure to FluMist or other live attenuated influenza vacci inessa may cause inaccurat e positive result s.This test has been authorized by [employer] under an EUA for use by authorized laboratories. This test is only au thorized for the duratio n of the declaration geneva t circumstances e xist justifying the authorization o f emergency use o f in vitro diagnosti c tests for detection a nd/or diagnosis of CO VID-19 under Section 5 64(b)(1) of the Federal Food, Drug and Cosmet ic Act, 21 U.S.C. 360bbb-3(b)(1), unless the authorizati on is terminated or r evoked sooner. Fact Sh eet for Healthcare Prov iders: https://www.[employer].com /Documents/Xper t%20Xpre ss%90ISOL-VzW-6 -Flu-RSV /302-4508%20Rev .%20B%20 HCP%20Fact%20Sh eet.pdf Fact Sheet for Healthcare Namita ents: https://www.[employer].com /Documents/Xper t%20Xpre ss%57ZDMJ-SiZ-4 -Flu-RSV /302-4507%20Rev .%20B%20 Patient%20Fact% 20Sheet. pdf Lab Interpretation Normal (test code = 03982-8) [facility]/RSV [id number] 23:04:00 Test Item Value Reference Range Interpretation Comments SARS-COV2/RT-PCR Negative Negative (test code = 1654653) INFLUENZA A RT-PCR Negative Negative (test code = 0737418) INFLUENZA B RT-PCR Negative Negative (test code = 2845616) RSV RT-PCR (test Negative Negative Performanc e of the Xpert code = 8904828) Xpress SARS- CoV-2/Flu/RSV test has only b een established in nasopharyngeal swab specimens. Use of the Xpert Xpress SARS-CoV-2/Flu/ RSV test with other spec imen types has not been as sessed and performance characteristics are unknown. As wi th any molecular test, mutations within the targ eted genetic regions identified by Xpert Xpress SARS-CoV -2/Flu/RSV test could affe ct primer and/or probe bi nding resulting in fa ilure to detect the pres ence of virus or the vi lance being detected less predictably.Neg ative results do not preclude SARS-CoV-2, Inf luenza A/B, or RSV inf ection and should not be u sed as the sole basis for treatment or other patien t management deci sions. Results from e Xpert Xpress SARS-CoV -2/Flu/RSV test should be correlated with the clinic al history, epidem iological data, and other data available to e clinician evalu ating the patient. Inval id test results may occ ur from improper specim en collection; radha lure to follow the deborah mmended sample collecti on, handling, and s torage procedures; tesha hnical error. False ne gative results may occ ur if virus is presen t at levels below th e analytical limi t of detection (LOD: 131 copies/mL). Vi ral nucleic acid ma y persist in vivo, indepe ndent of virus viability . Detection of an alyte target(s) does not imply that the corres ponding virus(es) are i nfectious or are the caus ative agents for clin ical symptoms. Rece nt patient exposure to Flu Mist or other live atte nuated influenza vacci inessa may cause inaccurat e positive results.This te st has been authorized by FDA under an EUA fo r use by authorized labo ratories. This test is on ly authorized for the duration of the declaration geneva t circumstances e xist justifying the authorization o f emergency use o f in vitro diagnostic test s for detection and/o r diagnosis of CO VID-19 under Section 5 64(b)(1) of the Federal Food, Drug and Cosmetic Ac t, 21 U.S.C. 360bbb -3(b)(1), unless the auth orization is terminated o r revoked sooner.Fact She et for Healthcare Prov iders: https://www.[employer]/D ocuments/Xpert% 20Xpress%2 7VHNR-JhV-9-Flu -RSV/302- 508%20Rev.%20B% 20HCP%20Fa ct%20Sheet.pdfF act Sheet for Healthcare Patients: https://www.[employer]/D ocuments/Xpert% 20Xpress%2 6ZZCX-QgR-7-Flu -RSV/302- 507%20Rev.%20B% 20Patient% 20Fact%20Sheet. pdf Comprehensive metabolic [id number] 22:47:00 Test Item Value Reference Range Interpretation Comments Protein, Total (test 7.3 See_Comment Specime n slightly code = 2885-2) hemolyzed [Automated message] The system which generated this result transmit ana reference range : 6.0 - 8.5 gm/dL . The reference range was not u sed to interpret th is result as normal/abnormal . Albumin (test code = 4.2 g/dL 3.5-5 Specime n slightly 91307-1) hemolyzed Alkaline Phosphatase 72 U/L 30-115 (test code = 6768-6) Total Bilirubin (test 0.4 mg/dL 0.1-1.2 Specim en slightly code = 1975-2) hemolyzed Sodium (test code = 140 meq/L 732-240 3891-2) Potassium (test code 3.1 meq/L 3.6-5.5 L Specime n slightly = 2823-3) hemolyzed Chloride (test code = 102 meq/L 98-106 5-0) CO2 (test code = 25 meq/L 20-29 2027-9) BUN (test code = 13 mg/dL 10- 3094-0) Creatinine (test code 0.97 mg/dL 0.5-1.2 Specim en slightly = 2160-0) hemolyzed Glucose (test code = 138 mg/dL 70-110 H 2345-7) Calcium (test code = 9.9 mg/dL 8.5-10.5 81373-6) AST (test code = 19 U/L 5-40 Specimen sl ightly 1920-8) hemolyzed ALT (test code = 15 U/L 5-50 Specimen sl ightly 1742-6) hemolyzed EGFR (test code = 56 mL/min/1.73 [place] [address]-7) NOT ACCURATE CREATININE CLEARANCE IN PREDICTING GLOMERULAR FILTRATION RATE . ESTIMATED GFR I S NOT APPLICABLE FOR DIALYSIS PATIEN TS. YOANNA (test code = YOANNA) Pouch Making Machine Operator ID - [id number] r ID - [id number] r ID - [id number] r ID - [id number] r ID - [id number] r ID - [id number] r ID - [id number] r ID - [id number] r ID - [id number] r ID - [id number] r ID - [id number] r ID - [id number] r ID - [id number] r ID - [id number] r ID - [id number] r ID - [id number] r ID - [id number] r ID - [id number] r ID - [id number] Lab Interpretation Abnormal (test code = 53266-0) [facility] CenterCOMPREHENSIVE METABOLIC [id number] 22:47:00 Test Item Value Reference Range Interpretation Comments TOTAL PROTEIN 7.3 gm/dL 6.0-8.5 Specimen sligh tly (BEAKER) (test code = hemoly zed 770) ALBUMIN (BEAKER) 4.2 g/dL 3.5-5.0 Specimen sl ightly (test code = 1145) hemolyzed ALKALINE PHOSPHATASE 72 U/L 30-115 (BEAKER) (test code = 346) BILIRUBIN TOTAL 0.4 mg/dL 0.1-1.2 Specimen sli ghtly (BEAKER) (test code = hemoly zed 377) SODIUM (BEAKER) (test 140 meq/L 135-148 code = 381) POTASSIUM (BEAKER) 3.1 meq/L 3.6-5.5 L Specimen slightly (test code = 379) hemolyzed CHLORIDE (BEAKER) 102 meq/L 98-106 (test code = 382) CO2 (BEAKER) (test 25 meq/L 20-29 code = 355) BLOOD UREA NITROGEN 13 mg/dL 10-26 (BEAKER) (test code = 354) CREATININE (BEAKER) 0.97 mg/dL 0.50-1.20 Specimen slightly (test code = 358) hemolyzed GLUCOSE RANDOM 138 mg/dL 70-110 H (BEAKER) (test code = 652) CALCIUM (BEAKER) 9.9 mg/dL 8.5-10.5 (test code = 697) AST (SGOT) (BEAKER) 19 U/L 5-40 Specimen slightly (test code = 353) hemolyzed ALT (SGPT) (BEAKER) 15 U/L 5-50 Specimen slightly (test code = 347) hemolyzed EGFR (BEAKER) (test 56 mL/min/1.73 ESTIMA ANA GFR IS code = 1092) sq m NOT ACCURATE CREATININE CLEARANCE IN PREDICTING GLOMERULAR FILTRATION RATE . ESTIMATED GFR I S NOT APPLICABLE FOR DIALYSIS PATIEN TS. Pouch Making Machine Operator ID - [id number] ID - [id number] ID - [id number] ID - [id number] ID - [id number] ID - [id number] ID - [id number] ID - [id number] ID - [id number] ID - [id number] ID - [id number] ID - [id number] ID - [id number] ID - [id number] ID - [id number] ID - [id number] ID - [id number] ID - [id number] ID - [id number] Natriuretic Factor (BNP)2020-08-12 22:42:00 Test Item Value Reference Range Interpretation Comments BNP (test code = 78185-3) 65 pg/mL 0-100 YOANNA (test code = YOANNA) Pouch Making Machine Operator ID - [id number] Lab Interpretation (test Normal code = 50420-3) [facility] NATRIURET[facility] FACTOR (BNP)2020-08-12 22:42:00 Test Item Value Reference Range Interpretation Comments B-TYPE NATRIURETIC PEPTIDE (BEAKER) 65 pg/mL 0-100 (test code = 700) P[employer] Making Machine Operator ID - [id number] [id number] 22:41:00 Test Item Value Reference Range Interpretation Comments Troponin I (test code = <0.03 0-0.15 53079-5) YOANNA (test code = YOANNA) Troponin I (TnI) levels must be interpreted in the context of the presenting symptoms and the clinical findings. Elevated TnI levels indicate myocardial damage, but are not specific for ischemic heart disease. Elevated TnI levels are seen in patients with other cardiac conditions (including myocarditis and congestive heart failure), and slight TnI elevations occur in patients with other conditions, including sepsis, renal failure, acidosis, acute neurological disease, and persistent tachyarrhythmia.Opera tor ID - [id number] Lab Interpretation (test Normal code = 04989-2) [facility] CenterTROPONIN [id number] 22:41:00 Test Item Value Reference Range Interpretation Comments TROPONIN I (BEAKER) (test code = 397) < ng/mL 0.00-0.15 Troponin I (TnI) levels must be interpreted in the context of the presenting symptoms and the clinical findings. Elevated TnI levels indicate myocardial damage, but are not specific for ischemic heart disease. Elevated TnI levels are seen in patients with other cardiac conditions (including myocarditis and congestive heart failure), and slight TnI elevations occur in patients with other conditions, including sepsis, renal failure, acidosis, acute neurological disease, and persistent tachyarrhythmia.Pouch Making Machine Operator ID - [id number] 22:33:00 Test Item Value Reference Range Interpretation Comments PTT (test code = 22.9 See_Comment L Final Infor mation 75662-7) (Auto Output) [Automated mess age] The system ic h generated this result transmitted ref erence range: 23.0 - 3 5.0 seconds. The reference range was not used to int erpret this result as normal/abnormal . Lab Interpretation (test Abnormal code = 39259-4) [facility] CenterLactic acid, venous [id number] 22:33:00 Test Item Value Reference Range Interpretation Comments Lactate, Venous (test 2.50 mmol/L 0.5-2 HH Specim en code = 2872) moderately hemolyzed YOANNA (test code = YOANNA) Pouch Making Machine Operator ID - [id number] r ID - [id number] r ID - [id number] r ID - [id number] Lab Interpretation Abnormal (test code = 06723-2) [facility] CenterLACTIC ACID, [id number] 22:33:00 Test Item Value Reference Range Interpretation Comments LACTATE BLOOD VENOUS 2.50 mmol/L 0.50-<2.00 HH Specime n moderately (2) (BEAKER) (test hemolyzed code = 2872) Pouch Making Machine Operator ID - [id number] ID - [id number] ID - [id number] ID - [id number] 22:33:00 Test Item Value Reference Range Interpretation Comments PARTIAL THROMBOPLASTIN 22.9 seconds 23.0-35.0 L Final Information TIME (BEAKER) (test (Auto Ou tput) code = 760) Prothrombin time/[id number] 22:32:00 Test Item Value Reference Interpretation Comments Range Protime (test code = 10.9 See_Comment Final 5902-2) Information (Auto Output) [Automated message] The system which generated this result transmitted reference range : 9.3 - 12.0 seconds. The reference range was not used to interpret this result as normal/abnormal . INR (test code = 1.00 See_Comment Final 6301-6) Information (Auto Output) [Automated message] The system which generated this result transmitted reference range : <=5.90. The reference range was not used to interpret this result as normal/abnormal . YOANNA (test code = RECOMMENDED YOANNA) COUMADIN/WARFARIN INR THERAPY RANGESSTANDARD DOSE: 2.0 - 3.0 Includes: PROPHYLAXIS for venous thrombosis, systemic embolization; TREATMENT for venous thrombosis and/or pulmonary embolus.HIGH RISK: Target INR is 2.5-3.5 for patients with mechanical heart valves. Lab Interpretation Normal (test code = 28676-1) [facility] Center[facility]OMBIN TIME/[id number] 22:32:00 Test Item Value Reference Range Interpretation Comments PROTIME (BEAKER) 10.9 seconds 9.3-12.0 Final Infor mation (test code = 759) (Auto Outp ut) INR (BEAKER) (test 1.00 <=5.90 Final Inf ormation code = 370) (Auto Output) RECOMMENDED COUMADIN/WARFARIN INR THERAPY RANGESSTANDARD DOSE: 2.0 - 3.0 Includes: PROPHYLAXIS forvenous thrombosis, systemic embolization; TREATMENT for venous thrombosis and/or pulmonary embolus.HIGH RISK: Target INR is 2.5-3.5 for patients with mechanical heart valves.CBC with platelet count + automated diff 2020-08-12 22:18:00 Test Item Value Reference Range Interpretation Comments WBC (test code = 7.5 See_Comment [Automated message] 6690-2) The system [employer] generated this result transmitted ref erence range: 4.0 - 10 .0 K/L. The refe rence range was not u sed to interpret this result as normal/abnor mal. RBC (test code = 789-8) 4.54 See_Comment [Au tomated message] The system [employer] generated this result transmitted ref erence range: 4.00 - 5 .00 M/L. The refe rence range was not u sed to interpret this result as normal/abnor mal. MCHC (test code = 33.8 See_Comment [Automate d message] 786-4) The system [employer] generated this result transmitted ref erence range: 32.0 - 3 6.0 GM/DL. The refe rence range was not u sed to interpret this result as normal/abnor mal. Hematocrit (test code = 39.1 % 36-46 4544-3) MCV (test code = 787-2) 86.1 fL 82-99 MCH (test code = 785-6) 29.1 pg 27-33 RDW (test code = 788-0) 14.0 % 12-15 Platelets (test code = 207 See_Comment [Aut omated message] 777-3) The system [employer] generated this result transmitted ref erence range: 150 - 43 0 K/CU MM. The referen ce range was not used to interpret this result as normal/abnor mal. MPV (test code = 10.0 fL 6-11.5 76637-1) nRBC (test code = 413) 0 See_Comment [Aut omated message] The system [employer] generated this result transmitted ref erence range: 0 - 0 /1 00 WBC. The reference r terri was not used to int erpret this result as normal/abnormal . % Neutros (test code = 54 % 429) % Lymphs (test code = 36 % 430) % Monos (test code = 8 % 431) % Eos (test code = 432) 2 % % Baso (test code = 1 % 437) # Neutros (test code = 4.04 See_Comment [Aut omated message] 670) The system [employer] generated this result transmitted ref erence range: 1.80 - 8 .00 K/L. The refe rence range was not u sed to interpret this result as normal/abnor mal. # Lymphs (test code = 2.72 See_Comment [Auto mated message] 414) The system [employer] generated this result transmitted ref erence range: 1.48 - 4 .50 K/L. The refe rence range was not u sed to interpret this result as normal/abnor mal. # Monos (test code = 0.56 See_Comment [Autom ated message] 415) The system [employer] generated this result transmitted ref erence range: 0.00 - 1 .30 K/L. The refe rence range was not u sed to interpret this result as normal/abnor mal. # Eos (test code = 416) 0.13 See_Comment [Au tomated message] The system [employer] generated this result transmitted ref erence range: 0.00 - 0 .50 K/L. The refe rence range was not u sed to interpret this result as normal/abnor mal. # Baso (test code = 0.04 See_Comment [Automa ana message] 417) The system [employer] generated this result transmitted ref erence range: 0.00 - 0 .20 K/L. The refe rence range was not u sed to interpret this result as normal/abnor mal. Immature 0 % 0-0 Granulocytes-Relative (test code = 2801) [facility] W/PLT COUNT & AUTO [id number] 22:18:00 Test Item Value Reference Range Interpretation Comments WHITE BLOOD CELL COUNT (BEAKER) 7.5 K/ L 4.0-10.0 (test code = 775) RED BLOOD CELL COUNT (BEAKER) 4.54 M/ L 4.00-5.00 (test code = 761) HEMOGLOBIN (BEAKER) (test code = 13.2 GM/DL 12.0-15.5 410) HEMATOCRIT (BEAKER) (test code = 39.1 % 36.0-46.0 411) MEAN CORPUSCULAR VOLUME (BEAKER) 86.1 fL 82.0-99.0 (test code = 753) MEAN CORPUSCULAR HEMOGLOBIN 29.1 pg 27.0-33.0 (BEAKER) (test code = 751) MEAN CORPUSCULAR HEMOGLOBIN CONC 33.8 GM/DL 32.0-36.0 (BEAKER) (test code = 752) RED CELL DISTRIBUTION WIDTH 14.0 % 12.0-15.0 (BEAKER) (test code = 412) PLATELET COUNT (BEAKER) (test 207 K/CU MM 150-430 code = 756) MEAN PLATELET VOLUME (BEAKER) 10.0 fL 6.0-11.5 (test code = 754) NUCLEATED RED BLOOD CELLS 0 /100 WBC 0-0 (BEAKER) (test code = 413) NEUTROPHILS RELATIVE PERCENT 54 % (BEAKER) (test code = 429) LYMPHOCYTES RELATIVE PERCENT 36 % (BEAKER) (test code = 430) MONOCYTES RELATIVE PERCENT 8 % (BEAKER) (test code = 431) EOSINOPHILS RELATIVE PERCENT 2 % (BEAKER) (test code = 432) BASOPHILS RELATIVE PERCENT 1 % (BEAKER) (test code = 437) NEUTROPHILS ABSOLUTE COUNT 4.04 K/ L 1.80-8.00 (BEAKER) (test code = 670) LYMPHOCYTES ABSOLUTE COUNT 2.72 K/ L 1.48-4.50 (BEAKER) (test code = 414) MONOCYTES ABSOLUTE COUNT (BEAKER) 0.56 K/ L 0.00-1.30 (test code = 415) EOSINOPHILS ABSOLUTE COUNT 0.13 K/ L 0.00-0.50 (BEAKER) (test code = 416) BASOPHILS ABSOLUTE COUNT (BEAKER) 0.04 K/ L 0.00-0.20 (test code = 417) IMMATURE GRANULOCYTES-RELATIVE 0 % 0-0 PERCENT (BEAKER) (test code = 2801) RAD, CHEST, PA OR AP, 1 [id number] 20:49:00Reason for exam:->sob [facility] : 1945 Sex: FFINAL REPORT X-ray chest AP portable COMPARISON: 4 months prior HIST ORY: Shortness of breath FINDINGS:Technical adequacy: AdequateLines and Tubes: Not applicableCentralairways: UnremarkableHeart: Coronary artery stents.Great vessels: UnremarkableMediastinum: UnremarkableLungs: UnremarkablePleura: UnremarkableSkeletal structures: UnremarkableBody wall: UnremarkableUpper abdomen: Unremarkable Impression: As above. No acute cardiopulmonary disease. Signed: Jeff Daugherty Verified Date/Time: 08/12/2020 20:49:32 Reading Location: [address] Transitional Reading Room XR chest PA or AP 1 view in dept 2020-08-12 20:49:00Interface, External Ris In - 08/12/2020 8:51 PM CSTFINAL REPORT X-ray chest AP portable COMPARISON: 4 months prior HISTORY: Shortness of breath FINDINGS:Technical adequacy: AdequateLines and Tubes: Not applicableCentral airways: UnremarkableHeart: Coronary artery stents.Great vessels: UnremarkableMediastinum: UnremarkableLungs: UnremarkablePleura: UnremarkableSkeletal structures: UnremarkableBody wall: UnremarkableUpper abdomen: Unremarkable Impression: As above. No acute card iopulmonary disease. Signed: Jeff Daugherty MDReport Verified Date/Time: 08/12/2020 20:49:32 Reading Location: [address] Transitional Reading Room [facility] CenterUrinalysis w/Microscopic + Reflex to [id number] 20:43:00 Test Item Value Reference Range Interpretation Comments Color, UA (test code = Yellow 5778-6) Clarity, UA (test code = Clear 5767-9) Specific [place], UA 1.025 1.001-1.035 (test code = 5811-5) pH, UA (test code = 5.5 5.0-8.0 5803-2) Protein, UA (test code = Negative Negative 18565-3) Glucose, UA (test code = 250 mg/dL Negative A 365) Ketones, UA (test code = 15 mg/dL Negative A 2514-8) Bilirubin, UA (test code Negative Negative = 64587-6) Blood, UA (test code = Negative Negative 49849-3) Nitrite, UA (test code = Negative Negative 5802-4) Leukocytes, UA (test Small Negative A code = 5799-2) Urobilinogen, UA (test 0.2 mg/dL 0.2-1 code = 50050-2) Bacteria, UA (test code Few = 57105-3) RBC, UA (test code = None Seen See_Comment [Autom ated message] 799-7) The system [employer] generated this result transmit ana reference range : /HPF. The refer ence range was not u sed to interpret th is result as normal/abnormal . WBC, UA (test code = 5-10 See_Comment [Autom ated message] 10871-4) The system [employer] generated this result transmit ana reference range : /HPF. The refer ence range was not u sed to interpret th is result as normal/abnormal . SQUAMOUS EPITHELIAL 5-10 See_Comment [Automa ana message] (test code = 02410-4) The sy stem which generated this result transmit ana reference range : /HPF. The refer ence range was not u sed to interpret th is result as normal/abnormal . Specimen Source (test code = 2795) Lab Interpretation (test Abnormal code = 47393-9) [facility]LEX URINE [id number] 20:43:00 Test Item Value Reference Range Interpretation Comments COLOR (BEAKER) (test code = Yellow 470) CLARITY (BEAKER) (test code = Clear 469) SPECIFIC GRAVITY UA (BEAKER) 1.025 1.001-1.035 (test code = 468) PH UA (BEAKER) (test code = 5.5 5.0-8.0 467) PROTEIN UA (BEAKER) (test code Negative Negative = 464) GLUCOSE UA (BEAKER) (test code 250 mg/dL Negative A = 365) KETONES UA (BEAKER) (test code 15 mg/dL Negative A = 371) BILIRUBIN UA (BEAKER) (test Negative Negative code = 462) BLOOD UA (BEAKER) (test code = Negative Negative 461) NITRITE UA (BEAKER) (test code Negative Negative = 465) LEUKOCYTE ESTERASE UA (BEAKER) Small Negative A (test code = 466) UROBILINOGEN UA (BEAKER) (test 0.2 mg/dL 0.2-1.0 code = 463) BACTERIA (BEAKER) (test code = Few 517) RBC UA-MANUAL (BEAKER) (test None Seen /HPF code = 1659) WBC UA-MANUAL (BEAKER) (test 5-10 /HPF code = 1661) SQUAMOUS EPITHELIAL MANUAL 5-10 /HPF (BEAKER) (test code = 1663) SOURCE(BEAKER) (test code = 2795) ECG/EKG [id number] 20:27:34 Test Item Value Reference Range Interpretation Comments YOANNA (test code = YOANNA) Arturo Hamm MD 08/13/2020 2:59 AMECG/EKG Interpretation Date/Time: 08/13/2020 2:59 AMPerformed by: Arturo Hamm MDAuthorized by: Arturo Hamm MD The ECG was interpreted by ED physician. The ECG is interpreted as sinus rhythm. Rate is normal rate. Heart rate is 61 BPM.Abnormal conduction noted: incomplete RBBB.Spurger is left. Other findings include: Anteroseptal infarct, age undetermined. and LVH. Clinical Impression: abnormal ECG Lab Interpretation Abnormal (test code = 60974-1) [facility] CenterEKG-[id number] 00:00:00Ordered by an unspecified provider.[facility] CenterPOC-Glucose [id number] 11:43:00 Test Item Value Reference Range Interpretation Comments POC-Glucose Meter (test 264 mg/dL 70-110 H : TE STED AT [facility] code = 1538) [address] [address]: Pouch Making Machine Operator/Techni lili ID = [id number] for Anali Linder Lab Interpretation (test Abnormal code = 89030-2) [facility] CenterPOCT-GLUCOSE [id number] 11:43:00 Test Item Value Reference Range Interpretation Comments POC-GLUCOSE METER 264 mg/dL 70-110 H : [facility] (test code [facility] NT [facility], = 1538) [place] [address]: Pouch Making Machine Operator/Techni lili ID = [id number] for Anali Schuler POCT-GLUCOSE [id number] 06:00:00 Test Item Value Reference Range Interpretation Comments POC-GLUCOSE METER 160 mg/dL 70-110 H : [facility] ([facility], = 1538) [place] [address]: Pouch Making Machine Operator/Techni lili ID = [id number] for Amanda Beltran phy POCT-GLUCOSE [id number] 20:47:00 Test Item Value Reference Range Interpretation Comments POC-GLUCOSE METER 305 mg/dL 70-110 H : Notified RN/MD: TESTED (LILLIAM) (test code AT [facility] 13[address] [facility] = 1538) [place] [address]: Pouch Making Machine Operator/Techni lili ID = [id number] for Devin ph, Civy POCT-GLUCOSE [id number] 17:14:00 Test Item Value Reference Range Interpretation Comments POC-GLUCOSE METER 267 mg/dL 70-110 H : TESTED A T [facility] [address] (BEAKER) (test code [address], = 1538) [facility] [address]: Pouch Making Machine Operator/Techni lili ID = [id number] for Alvin Dumont SARS-CoV2/RT-PCR (Asymptomatic ONLY)2020-04-24 15:23:00 Test Item Value Reference Range Interpretation Comments SARS-COV2/RT-PCR Negative Not Detected, (test code = Negative, See 01673-9) external report for linked test [facility]COV-2 [facility] (test code = 70740-1) YOANNA (test code = Negative result for this YOANNA) test determines that SARS-CoV-2 RNA was not present in the specimen above the Limit of Detection (LOD). However, Negative results do not preclude SARS-CoV-2 infection and should not be used as the sole basis for treatment or patient management decisions. Negative results must be combined with clinical observations, patient history, and epidemiological information. A false negative result may occur if a specimen is improperly collected, transported or handled. A false negative result should be considered if patient's recent exposures or clinical presentation indicate that COVID-19 (SARS-CoV-2) is likely and diagnostic tests for other causes of illness are negative. Re-testing should be considered in cases of suspected false negatives. The limit of detection for this assay is 800 copies/mL. This SARS CoV-2 test is a real-time RT-PCR test intended for the qualitative detection of nucleic acid from SARS-CoV-2 in a nasopharyngeal swab specimen collected from individuals suspected of COVID-19 by their healthcare provider. This test has not been Food and Drug Administration (FDA) cleared or approved. This is a modified version of an approved Emergency Use Authorization (EUA) and is in the process of review by the FDA. Once authorized by the FDA, the issued EUA will be effective until the declaration that circumstances exist justifying the authorization of the emergency use of in vitro diagnostic tests for detection and/or diagnosis of COVID-19 is terminated under Section 564(b)(2) of the Act or the EUA is revoked under Section 564(g) of the Act. Fact Sheet for Healthcare Providers:https://www.qu idel.com/sites/default/f jerod/product/documents/F act_Sheet_HC_Providers_L kns_XUDB-OfU-6.pdf Fact Sheet for Healthcare Patients:https://www.[facility]/sites/default/fi les/product/documents/Fa ct_Sheet_Patients_Lyra_S ARS-CoV-2.pdf Performing Laboratory:[facility], [place] [address] [place], [place] [address]ARS-COV2/RT-PCR ([facility])2020-04-24 15:23:00 Test Item Value Reference Range Interpretation Comments SARS-COV2/RT-PCR (test Negative Not Detected, Negative, code = 0060359) See external report for linked test SARS-COV-2 PERFORMING LAB [facility] (test code = 6982888) Negative result for this test determines that SARS-CoV-2 RNA was not present in the specimen above the Limit of Detection (LOD). However, Negative results do not preclude SARS-CoV-2 infection and should not be used as the sole basis for treatment or patient management decisions. Negative results mustbe combined with clinical observations, patient history, and epidemiological information. A false negative result may occur if a specimen is improperly collected, transported or handled. A false negative result should be considered if patient's recent exposures or clinical presentation indicate that COVID-19 (SARS-CoV-2) is likely and diagnostic tests for other causes of illness are negative. Re-testing should be considered in cases of suspected false negatives.The limit of detection for this assay is 800 copies/mL.This SARS CoV-2 test is a real-time RT-PCR test intended for the qualitative detection of nucleic acid from SARS-CoV-2 in a nasopharyngeal swab specimen collected from individuals susp ected of COVID-19 by their healthcare provider.This test has not been Food and Drug Administration (FDA) cleared or approved. This is a modified version of an approved Emergency Use Authorization (EUA) and is in the process of review by the FDA. Once authorized by the FDA, the issued EUA will be effective until the declaration that circumstances exist justifying the authorization of the emergency use of in vitro diagnostic tests for detection and/or diagnosis of COVID-19 is terminated under Section 564(b)(2) of the Act or the EUA is revoked under Section 564(g) of the Act.Fact Sheet for Healthcare Providers:https://www.[employer]/sites/default/files/product/documents/Fact_Lam ervinf_LC_Lgoyuuhro_Hkpg_OGWU-ZlU-4.pdfFact Sheet for Healthcare Patients:https://www.[employer]/sites/default/files/product/ documents/Ueon_Cjwiw_Qouueeml_Jdmi_GLGP-RcU-0.pdfPerforming Laboratory:[facility], [place] [address]O Echo W/Doppler(CW/PW/Color)2020-04-24 13:32:54Ejection FractionSLEH ECHO HEARTLAB MKCKESSON CPACSInterface, External Ris In - 04/24/2020 1:33 PM CDTTransthoracic Echocardiography Report (TTE) Demographics Patient Name GEORGIA SANDERS Date ofStudy 04/24/2020 SALLY Gender Female Visit Number [id number] Race Unknown Room Number AS416 Number Date of 1945 Referring Physician Age 75 year(s) Cash Applications Coordinator KOKI Hughes Interpreting Trung Monroy Jr. MD Physician Procedure Type of Study TTE procedure:2DECHO W DOPPLER(CW/PW/COLOR ) (Routine) Indications:Shortness of breath.Clinical HistoryCHF, CAD, DM, HTN, THYROID DISEASE, HYPERLIPIDEMIA.Height: 68 inches Weight: 97.07 kg (214 lbs) BSA: 2.1 m^2 BMI: 32.54 kg/m^2HR: 76 bpm BP: 139/69 mmHg Summary Slightly limited study Anteroapical hypokinesia LV ejection fraction 40 to 45% (looking better on 4 chamber view/worse on short axis) Mild rather than moderate mitral insufficiency Mild tricuspid regurgitation Signature Findings Left Ventricle The visual ejection fraction was estimated 45 %. anteroseptal hypokinesia Left Atrium LA size is mildly enlarged . Right The right ventricular chamber size and systolic function Ventricle are within normal limits. Right Atrium RA size is normal. Aortic Valve There is aortic valve sclerosis without evidence of stenosis. Mitral Valve Zlgf-qy-oywhadup mitral regurgitation. Tricuspid Mild tricuspid regurgitation. Valve Pulmonic Valve PV is not well visualized. Pericardium No pericardial effusion is visualized. Chambers/Structures Left Atrium LA Dimen prabha: 4.08 cm LA Area: 22.4 cm^2 LA Volume: 84.32 ml LA Vol. Index: 40 ml/m^2 Left Ventricle LVIDd: 5.47 cm LVEDV:145.62 ml LVIDs: 4.71 cm LVESV:102.91 ml LV Septum Diastolic: 1.16 cm LV Septum Systolic: 1.51 cm LV Length: 7.82 cm LV PW Diastolic: 1.17 cm LV FS: 13.9 % L V PW Systolic: 1.49 cm LVOT Diameter: 2.03 cm LVEF: 29.3 % Right Atrium RA Systolic Pressure: 10mmHg Right Ventricle RV Systolic Pressure: 27.26 mmHg Aorta Ao Root S of Opal.: 2.73 cm Doppler/Quantitative Measurements Mitral Valve MV Peak E-Wave: 0.9 m/s MV Peak A-Wave: 0.59 m/s P1/2t: 60 msec E/A Ratio: 1.52 Peak Gradient: 3.21 mmHg Deceleration Time: 220.9 msec MV Area (PHT): 3.66 cm^2 MR Velocity: 4.08 m/s MV Silvino. Peak: Tissue Doppler E' Septal Velocity: 0.03 m/s E' Lateral Velocity: 0.05 m/s Aortic Valve Peak Velocity: 1.06m/s Mean Velocity: 0.77 m/s Peak Gradient: 4.5 mmHg Mean Gradient: 2.5 mmHg AV Area (continuity): 2.71 cm^2 AV VTI: 20.29 cm Cusp Separation: 2.14 cm AV DVI: 0.84 LVOT Peak Velocity: 0.93 m/s Peak Gradient: 3.47 mmHg Mean Velocity: 0.62 m/s Mean Gradient: 1.76 mmHg LVOT Diameter: 2.03 cm LVOT VTI: 17.02 cm LVOT Area: 3.24 cm^2 LVOT SV:55.06 ml LVOT CO: 4.18 l/min LVOT CI: 1.99 l/min/m^2 Tricuspid Valve Estimated RVSP: 27.36 mmHg Estimated RAP: 10 mmHg TR Velocity: 2.08 m/s TR Gradient: 17.26mmHg Pulmonic Valve Peak Velocity: 0.64 m/s Peak Gradient: 1.66 mmHg Estimated PASP: 27.26 mmHg [facility] CenterB-TYPE NATRIURETIC FACTOR (BNP)2020-04-24 12:38:00 Test Item Value Reference Range Interpretation Comments B-TYPE NATRIURETIC PEPTIDE (BEAKER) 423 pg/mL 0-100 H (test code = 700) Pouch Making Machine Operator ID - ADMINPOCT-GLUCOSE [id number] 12:30:00 Test Item Value Reference Range Interpretation Comments POC-GLUCOSE METER 175 mg/dL 70-110 H : TESTED A T [facility] (BEAKER) (test code [facility], = 1538) [place] [address]: Pouch Making Machine Operator/Techni lili ID = [id number] for Alvin Dumont POCT-GLUCOSE [id number] 05:52:00 Test Item Value Reference Range Interpretation Comments POC-GLUCOSE METER 178 mg/dL 70-110 H : TESTED A T [facility] (BEAKER) (test code [facility], = 1538) [place] [id number]: Pouch Making Machine Operator/Techni lili ID = [id number] for Nwad iufu, Martina Iron, TIBC, % sat. (without ferritin)2020-04-24 04:48:00 Test Item Value Reference Range Interpretation Comments Iron (test code = 2498-4) 41.0 ug/dL 45-170 L TIBC (test code = 2500-7) 300 ug/dL 250-550 Iron % Saturation (test 14 % 20-55 L code = 2502-3) YOANNA (test code = YOANNA) Pouch Making Machine Operator ID - ADMIN Lab Interpretation (test Abnormal code = 93539-6) [facility] CenterIRON, TIBC, % SAT. (WITHOUT FERRITIN)2020-04-24 04:48:00 Test Item Value Reference Range Interpretation Comments IRON (BEAKER) (test code = 547) 41.0 ug/dL 45.0-170.0 L TOTAL IRON BINDING CAPACITY 300 ug/dL 250-550 (BEAKER) (test code = 769) IRON % SATURATION (2) (BEAKER) 14 % 20-55 L (test code = 2590) Pouch Making Machine Operator ID - ADMINBasic Metabolic [id number] 04:46:00 Test Item Value Reference Range Interpretation Comments Sodium (test code = 139 meq/L 955-909 1224-2) Potassium (test code = 4.1 meq/L 3.6-5.5 2823-3) Chloride (test code = 102 meq/L 98-106 2075-0) CO2 (test code = 26 meq/L -8-9) BUN (test code = 10 mg/dL - 3094-0) Creatinine (test code 0.83 mg/dL 0.5-1.2 = 2160-0) Glucose (test code = 162 mg/dL 70-110 H 2345-7) Calcium (test code = 9.4 mg/dL 8.5-10.5 79824-3) EGFR (test code = 67 mL/min/1.73 [place] [address]-2) NOT ACCURATE CREATININE CLEARANCE IN PREDICTING GLOMERULAR FILTRATION RATE . ESTIMATED GFR I S NOT APPLICABLE FOR DIALYSIS PATIENTS. YOANNA (test code = YOANNA) Pouch Making Machine Operator ID - ADMIN Lab Interpretation Abnormal (test code = 66094-9) [facility] CenterBASI METABOLIC [id number] 04:46:00 Test Item Value Reference Range Interpretation Comments SODIUM (BEAKER) 139 meq/L 135-148 (test code = 381) POTASSIUM (BEAKER) 4.1 meq/L 3.6-5.5 (test code = 379) CHLORIDE (BEAKER) 102 meq/L 98-106 (test code = 382) CO2 (BEAKER) (test 26 meq/L - code = 355) BLOOD UREA NITROGEN 10 mg/dL - (BEAKER) (test code = 354) CREATININE (BEAKER) 0.83 mg/dL 0.50-1.20 (test code = 358) GLUCOSE RANDOM 162 mg/dL 70-110 H (BEAKER) (test code = 652) CALCIUM (BEAKER) 9.4 mg/dL 8.5-10.5 (test code = 697) EGFR (BEAKER) (test 67 mL/min/1.73 ESTIMA ANA GFR IS code = 1092) sq m NOT ACCURATE CREATININE CLEARANCE IN PREDICTING GLOMERULAR FILTRATION RATE . ESTIMATED GFR I S NOT APPLICABLE FOR DIALYSIS PATIEN TS. Pouch Making Machine Operator ID - ADMINCBC W/PLT COUNT & AUTO [id number] 04:17:00 Test Item Value Reference Range Interpretation Comments WHITE BLOOD CELL COUNT (BEAKER) 7.5 K/ L 4.0-10.0 (test code = 775) RED BLOOD CELL COUNT (BEAKER) 4.10 M/ L 4.00-5.00 (test code = 761) HEMOGLOBIN (BEAKER) (test code = 11.6 GM/DL 12.0-15.5 L 410) HEMATOCRIT (BEAKER) (test code = 35.7 % 36.0-46.0 L 411) MEAN CORPUSCULAR VOLUME (BEAKER) 87.1 fL 82.0-99.0 (test code = 753) MEAN CORPUSCULAR HEMOGLOBIN 28.3 pg 27.0-33.0 (BEAKER) (test code = 751) MEAN CORPUSCULAR HEMOGLOBIN CONC 32.5 GM/DL 32.0-36.0 (BEAKER) (test code = 752) RED CELL DISTRIBUTION WIDTH 13.4 % 12.0-15.0 (BEAKER) (test code = 412) PLATELET COUNT (BEAKER) (test 215 K/CU MM 150-430 code = 756) MEAN PLATELET VOLUME (BEAKER) 9.6 fL 6.0-11.5 (test code = 754) NUCLEATED RED BLOOD CELLS 0 /100 WBC 0-0 (BEAKER) (test code = 413) NEUTROPHILS RELATIVE PERCENT 57 % (BEAKER) (test code = 429) LYMPHOCYTES RELATIVE PERCENT 33 % (BEAKER) (test code = 430) MONOCYTES RELATIVE PERCENT 6 % (BEAKER) (test code = 431) EOSINOPHILS RELATIVE PERCENT 3 % (BEAKER) (test code = 432) BASOPHILS RELATIVE PERCENT 0 % (BEAKER) (test code = 437) NEUTROPHILS ABSOLUTE COUNT 4.26 K/ L 1.80-8.00 (BEAKER) (test code = 670) LYMPHOCYTES ABSOLUTE COUNT 2.45 K/ L 1.48-4.50 (BEAKER) (test code = 414) MONOCYTES ABSOLUTE COUNT (BEAKER) 0.48 K/ L 0.00-1.30 (test code = 415) EOSINOPHILS ABSOLUTE COUNT 0.25 K/ L 0.00-0.50 (BEAKER) (test code = 416) BASOPHILS ABSOLUTE COUNT (BEAKER) 0.03 K/ L 0.00-0.20 (test code = 417) IMMATURE GRANULOCYTES-RELATIVE 0 % 0-0 PERCENT (BEAKER) (test code = 2801) POCT-GLUCOSE [id number] 21:35:00 Test Item Value Reference Range Interpretation Comments POC-GLUCOSE METER 185 mg/dL 70-110 H : TESTED A T SLSL 1317 (BEAKER) (test code [facility] [address], = 1538) [facility] 77 478: Pouch Making Machine Operator/Techni lili ID = [id number] for Tanvi Ramirez T4, [id number] 17:20:00 Test Item Value Reference Range Interpretation Comments Free T4 (test code = 1.26 ng/dL 0.9-1.8 3024-7) YOANNA (test code = YOANNA) Pouch Making Machine Operator ID - ADMIN Lab Interpretation (test Normal code = 37073-4) [facility] [id number] 17:20:00 Test Item Value Reference Range Interpretation Comments FREE T4 (BEAKER) (test code = 655) 1.26 ng/dL 0.90-1.80 Pouch Making Machine Operator ID - ADMINTSH/Free T4 If [id number] 17:06:00 Test Item Value Reference Range Interpretation Comments TSH (test code = 0.140 See_Comment L [Automated 01095-9) message] The system which generated this result transmit ana reference range : 0.350 - 5.500 uIU/mL. The reference range was not used to interpret this result as normal/abnormal . YOANNA (test code = YOANNA) P[employer] Making Machine Operator ID - ADMIN Lab Interpretation Abnormal (test code = 61512-8) [facility]FREE T4 IF [id number] 17:06:00 Test Item Value Reference Range Interpretation Comments THYROID STIMULATING HORMONE 0.140 uIU/mL 0.350-5.500 L (BEAKER) (test code = 772) P[employer] Making Machine Operator ID - ADMINTREVANZACPaola [id number] 15:59:00 Test Item Value Reference Range Interpretation Comments TROPONIN I (BEAKER) (test code = 0.05 ng/mL 0.00-0.15 397) Troponin I (TnI) levels must be interpreted in the context of the presenting symptoms and the clinical findings. Elevated TnI levels indicate myocardial damage, but are not specific for ischemic heart disease. Elevated TnI levels are seen in patients with other cardiac conditions (including myocarditis and congestive heart failure), and slight TnI elevations occur in patients with other conditions, including sepsis, renal failure, acidosis, acute neurological disease, and persistent tachyarrhythmia.Pouch Making Machine Operator ID - ADMINLipid [id number] 15:54:00 Test Item Value Reference Range Interpretation Comments Triglycerides (test 91 mg/dL code = 2571-8) Cholesterol (test code 94 mg/dL = 2093-3) HDL (test code = 38 mg/dL 5-9) LDL Calculated (test 38 mg/dL code = 58607-5) YOANNA (test code = YOANNA) Triglyceride Reference Range: Low Risk <150 Borderline 150-199 High Risk 200-499 Very High Risk >=500 Cholesterol Reference Range: Low Risk <200 Borderline 200-239 High Risk >240 HDL Cholesterol Reference Range: Low Risk >=60 High Risk <40 LDL Cholesterol Reference Range: Optimal <100 Near Optimal 100-129 Borderline 130-159 High 160-189 Very High >=190 Pouch Making Machine Operator ID - ADMINOperator ID - ADMINOperator ID - ADMINOperator ID - ADMINOperator ID - ADMINOperator ID - ADMIN [facility] CenterLIPID [id number] 15:54:00 Test Item Value Reference Range Interpretation Comments TRIGLYCERIDES (BEAKER) (test code = 91 mg/dL 540) CHOLESTEROL (BEAKER) (test code = 94 mg/dL 631) HDL CHOLESTEROL (BEAKER) (test code 38 mg/dL = 976) LDL CHOLESTEROL CALCULATED (BEAKER) 38 mg/dL (test code = 633) Triglyceride Reference Range: Low Risk <150 Borderline 150-199 High Risk 200-499 Very High Risk >=500Cholesterol Reference Range: Low Risk <200 Borderline 200-239 High Risk >240HDL Cholesterol Reference Range: Low Risk >=60 High Risk <40LDL Cholesterol Reference Range: Optimal <100 Near Optimal 100-129 Borderline 130-159 High 160-189 Very High >=190 Pouch Making Machine Operator ID - ADMINOperator ID - ADMINOperator ID - ADMINOperator ID - ADMINOperator ID - ADMINOperator ID - ADMINCT, CHEST WITH IV CONTRAST- PE TEST [id number] 15:52:00Reason for exam:->SHORTNESS OF BREATHWhat is the patient's sedation requirement?->No SedationFINAL REPORT EXAM: CT Chest WITH contrast- Pulmonary Embolism Protocol INDICATION: Shortness of breath COMPARISON: Chest x-ray dated the same day TECHNIQUE:Chest was scanned utilizing a multidetector helical scanner from the lung apex through the level of the diaphragm after administration of IV contrast. Thin section reconstructions were obtained with special concentration onthe pulmonary arteries. Coronal and sagittal reformations were obtained. Pulmonary embolism protocolwas performed. IV CONTRAST: 100 cc of Isovue 370 RADIATION DOSE: Total DLP: 534 mGy*cm Dose modulation, iterative reconstruction, and/or weight based adjustment of the mA/kV was utilized to reduce the radiation dose to as low as reasonably achievable. COMPLICATIONS: None FINDINGS: LINES/ TUBES: None. PULMONARY ARTERIES: Negative for saddle, main or proximal segmental pulmonary embolus. Diffuse motion artifact limits further evaluation. Main pulmonary arterymeasures up to 3.2 cm, mildly enlarged. LUNGS AND AIRWAYS: Lungs are negative for consolidation. La rge airways are patent. No suspicious pulmonary nodule or mass is identified. PLEURA: Trace left pleural effusion is noted. Negative for pneumothorax. HEART AND MEDIASTINUM: The thyroid gland is normal. No mediastinal, hilar or axillary lymphadenopathy. Heart is mildly enlarged. Negative for right ventricular enlargement or bowing of the interventricular septum. Coronary artery stent is noted. There is no pericardial effusion. Thoracic aorta is not well opacified but is of normal caliber with mild descending thoracic aortic atherosclerotic calcifications. UPPER ABDOMEN: Postcholecystectomy changes are noted. Small hiatal hernia is noted. BONES: Negative for acute osseous abnormality. Focal adv anced degenerative changes are noted at T11-12 with mild superior compression/anterior wedging of T12. Additional mild to moderate scattered degenerative changes are noted. Osseous structures are demineralized. SOFT TISSUES: Unremarkable. IMPRESSION: 1. Negative for central embolism or secondary signs of right heart strain. Distal segmental and subsegmental plantar branches are limited in evaluationdue to diffuse motion artifact.2. Enlarged main pulmonary artery measuring up to 3.2 cm can be seen in patients with pulmonary arterial hypertension.3. Trace left pleural effusion. Signed: Bradley GeronimoMDReport Verified Date/Time: 04/23/2020 15:52:11 Reading Location: [facility] Radiology Reading Room CT chest PE test [id number] 15:52:00Interface, External Ris In - 04/23/2020 3:54 PM CDTFINAL REPORT EXAM: CT Chest WITH contrast- Pulmonary Embolism Protocol INDICATION: Shortness of breath COMPARISON: Chest x-ray dated the same day TECHNIQUE:Chest was scanned utilizing a multidetector helical scanner from the lung apex through the level of the diaphragm after administration of IV contrast. Thin section reconstr uctions were obtained with special concentration on the pulmonary arteries. Coronal and sagittal reformations were obtained. Pulmonary embolism protocol was performed. IV CONTRAST: 100 cc of Isovue 370 RADIATION DOSE: Total DLP: 534 mGy*cm Dose modulation, iterative reconstruction, and/or weight based adjustment of the mA/kV was utilized to reduce the radiation dose to as low as reasonably achievable. COMPLICATIONS: None FINDINGS: LINES/ TUBES: None. PULMONARY ARTERIES: Negative for saddle, main or proximal segmental pulmonary embolus. Diffuse motion artifact limits further evaluation. Main pulmonary artery measures up to 3.2 cm, mildly enlarged. LUNGS AND AIRWAYS: Lungs are negative for consolidation. Large airways are patent. No suspicious pulmonary nodule or mass is identified. PLEURA: Trace left pleural effusion is noted. Negative for pneumothorax. HEART AND MEDIASTINUM: The thyroid gland is normal. No mediastinal, hilar or axillary lymphadenopathy. Heart is mildly enlarged. Negative for right ventricular enlargement or bowing of the interventricular septum. Coronary artery stent is noted. There is no pericardial effusion. Thoracic aorta is not well opacified but is of normal caliber with mild descending thoracic aortic atherosclerotic calcifications. UPPER ABDOMEN: Postcholecystectomy changes are noted. Small hiatal hernia is noted. BONES: Negative for acute osseous abnormality. Focal advanced degenerative changes are noted at T11-12 with mild superior compression/anterior wedging of T12. Additional mild to moderate scattered degenerative changes are noted. Osseous structures are demineralized. SOFT TISSUES: Unremarkable. IMPRESSION: 1. Negative for central embolism or secondary signs of right heart strain. Distal segmental and subsegmental plantar branches are limited in evaluation due to diffuse motion artifact.2. Enlarged main pulmonary artery measuring up to 3.2 cm can be seen in patients with pulmonary arterial hypertension.3. Trace left pleural effusion. Signed: Bradley Geronimo MDReport Verified Date/Time: 04/23/2020 15:52:11 Reading Location: [facility] Radiology Reading Room [facility]C-Reactive [id number] 15:50:00 Test Item Value Reference Range Interpretation Comments CRP (test code = 676) 0.54 mg/dL 0-0.5 H YOANNA (test code = YOANNA) Pouch Making Machine Operator ID - ADMIN Lab Interpretation (test Abnormal code = 00489-0) [facility]-REACTIVE [id number] 15:50:00 Test Item Value Reference Range Interpretation Comments C-REACTIVE PROTEIN (BEAKER) (test 0.54 mg/dL 0.00-0.50 H code = 676) Pouch Making Machine Operator ID - ADMINUrinalysis w/[id number] 15:29:00 Test Item Value Reference Range Interpretation Comments Color, UA (test code = Yellow 5778-6) Clarity, UA (test code Clear = 5767-9) Specific [place], UA 1.015 1.001-1.035 (test code = 5811-5) pH, UA (test code = 8.0 5.0-8.0 5803-2) Protein, UA (test code Negative Negative = 74323-0) Glucose, UA (test code Negative Negative = 365) Ketones, UA (test code Negative Negative = 2514-8) Bilirubin, UA (test Negative Negative code = 55476-5) Blood, UA (test code = Negative Negative 33090-7) Nitrite, UA (test code Negative Negative = 5802-4) Leukocytes, UA (test Trace Negative A code = 5799-2) Urobilinogen, UA (test 0.2 mg/dL 0.2-1 code = 00440-6) Bacteria, UA (test code Few = 50836-3) Yeast (test code = Occasional 06467-7) RBC, UA (test code = <5 See_Comment [Autom ated message] 799-7) The system [employer] generated this result transmit ana reference range : /HPF. The refer ence range was not u sed to interpret th is result as normal/abnormal . WBC, UA (test code = 10-20 See_Comment [Autom ated message] 73953-9) The system [employer] generated this result transmit ana reference range : /HPF. The refer ence range was not u sed to interpret th is result as normal/abnormal . Specimen Source (test code = 2795) Lab Interpretation Abnormal (test code = 71919-9) [facility] W/ [id number] 15:29:00 Test Item Value Reference Range Interpretation Comments COLOR (BEAKER) (test code = 470) Yellow CLARITY (BEAKER) (test code = 469) Clear SPECIFIC GRAVITY UA (BEAKER) (test 1.015 1.001-1.035 code = 468) PH UA (BEAKER) (test code = 467) 8.0 5.0-8.0 PROTEIN UA (BEAKER) (test code = Negative Negative 464) GLUCOSE UA (BEAKER) (test code = Negative Negative 365) KETONES UA (BEAKER) (test code = Negative Negative 371) BILIRUBIN UA (BEAKER) (test code = Negative Negative 462) BLOOD UA (BEAKER) (test code = Negative Negative 461) NITRITE UA (BEAKER) (test code = Negative Negative 465) LEUKOCYTE ESTERASE UA (BEAKER) Trace Negative A (test code = 466) UROBILINOGEN UA (BEAKER) (test 0.2 mg/dL 0.2-1.0 code = 463) BACTERIA (BEAKER) (test code = Few 517) YEAST (BEAKER) (test code = 1585) Occasional RBC UA-MANUAL (BEAKER) (test code <5 /HPF = 1659) WBC UA-MANUAL (BEAKER) (test code 10-20 /[facility] = 1661) SOURCE(BEAKER) (test code = 2795) BASIC METABOLIC [id number] 15:03:00 Test Item Value Reference Range Interpretation Comments SODIUM (BEAKER) 138 meq/L 135-148 (test code = 381) POTASSIUM (BEAKER) 4.6 meq/L 3.6-5.5 Specimen moderately (test code = 379) hemolyzed CHLORIDE (BEAKER) 103 meq/L 98-106 (test code = 382) CO2 (BEAKER) (test 22 meq/L 20-29 code = 355) BLOOD UREA NITROGEN 12 mg/dL 10-26 (BEAKER) (test code = 354) CREATININE (BEAKER) 0.86 mg/dL 0.50-1.20 Specimen moderately (test code = 358) hemolyzed GLUCOSE RANDOM 174 mg/dL 70-110 H (BEAKER) (test code = 652) CALCIUM (BEAKER) 9.0 mg/dL 8.5-10.5 (test code = 697) EGFR (BEAKER) (test 65 mL/min/1.73 ESTIMA ANA GFR IS code = 1092) sq m NOT ACCURATE CREATININE CLEARANCE IN PREDICTING GLOMERULAR FILTRATION RATE . ESTIMATED GFR I S NOT APPLICABLE FOR DIALYSIS PATIEN TS. Pouch Making Machine Operator ID - ADMINHemoglobin [id number] 15:01:00 Test Item Value Reference Range Interpretation Comments Hemoglobin A1C (test code 6.6 % 4.3-6.1 H = 4548-4) YOANNA (test code = YOANNA) Pouch Making Machine Operator ID - ADMIN Lab Interpretation (test Abnormal code = 51310-5) [facility] CenterHEMOGLOBIN [id number] 15:01:00 Test Item Value Reference Range Interpretation Comments HEMOGLOBIN A1C (BEAKER) (test code = 6.6 % 4.3-6.1 H 368) Pouch Making Machine Operator ID - [id number] 14:19:00 Test Item Value Reference Range Interpretation Comments Creatinine (test 0.84 mg/dL 0.5-1.2 Specimen code = 2160-0) moderately hemolyzed EGFR (test code = 66 mL/min/1.73 [place] [address]-3) NOT ACCURATE CREATININE CLEARANCE IN PREDICTING GLOMERULAR FILTRATION RATE . ESTIMATED GFR I S NOT APPLICABLE FOR DIALYSIS PATIEN TS. YOANNA (test code = Pouch Making Machine Operator ID - YOANNA) ADMIN [facility] Center[facility]AT[facility]INE2020-09-17 14:19:00 Test Item Value Reference Range Interpretation Comments CREATININE (LILLIAM) 0.84 mg/dL 0.50-1.20 Specimen moderately (test code = 358) hemolyzed EGFR (LILLIAM) (test 66 mL/min/1.73 ESTIMA ANA GFR IS code = 1092) sq m NOT ACCURATE CREATININE CLEARANCE IN PREDICTING GLOMERULAR FILTRATION RATE . ESTIMATED GFR I S NOT APPLICABLE FOR DIALYSIS PATIEN TS. Pouch Making Machine Operator ID - ADMINRAD, CHEST, 1 VIEW, NON [id number] 13:07:00Reason for exam:->SHORTNESS OF BREATHShould this be performed at the bedside?->Yes FINAL REPORT CLINICAL HISTORY: SHORTNESS OF BREATH TECHNIQUE: 1 view of the chest. COMPARISON: 04/06/2020 IMPRESSION: Mildly prominent lower lung markings are unchanged. There isno new lobar consolidation. Mild blunting of the left costophrenic angle is unchanged. The cardiomediastinal silhouette is magnified by technique. A lower thoracic compression fracture is again seen. Signed: Alysha Paneport Verified Date/Time: 04/23/2020 13:07:24 Reading Location: [facility] Radiology Reading Room XR chest 1 view portable / [id number] 13:07:00Interface, External Ris In - 04/23/2020 1:09 PM CDTFINAL REPORT CLINICAL HISTORY: SHORTNESS OF BREATH TECHNIQUE: 1 view of the chest. COMPARISON: 04/06/2020 IMPRESSION: Mildly prominent lower lung markings are unchanged. There is no new lobar consolidation. Mild blunting of theleft costophrenic angle is unchanged. The cardiomediastinal silhouette is magnified by technique. A lower thoracic compression fracture is again seen. Signed: Alysha Pan MDReport Verified Date/Time: 04/23/2020 13:07:24 Reading Location: [facility] Radiology Reading Room [facility] CenterB-TYPE NATRIURETIC FACTOR (BNP)2020-04-23 13:04:00 Test Item Value Reference Range Interpretation Comments B-TYPE NATRIURETIC PEPTIDE (BEAKER) 463 pg/mL 0-100 H (test code = 700) Pouch Making Machine Operator ID - ADMINTROPONIN [id number] 12:56:00 Test Item Value Reference Range Interpretation Comments TROPONIN I (BEAKER) (test code = 0.04 ng/mL 0.00-0.15 397) Troponin I (TnI) levels must be interpreted in the context of the presenting symptoms and the clinical findings. Elevated TnI levels indicate myocardial damage, but are not specific for ischemic heart disease. Elevated TnI levels are seen in patients with other cardiac conditions (including myocarditis and congestive heart failure), and slight TnI elevations occur in patients with other conditions, including sepsis, renal failure, acidosis, acute neurological disease, and persistent tachyarrhythmia.Pouch Making Machine Operator ID - ADMINCBC W/PLT COUNT & AUTO [id number] 12:47:00 Test Item Value Reference Range Interpretation Comments WHITE BLOOD CELL COUNT (BEAKER) 8.3 K/ L 4.0-10.0 (test code = 775) RED BLOOD CELL COUNT (BEAKER) 3.76 M/ L 4.00-5.00 L (test code = 761) HEMOGLOBIN (BEAKER) (test code = 11.0 GM/DL 12.0-15.5 L 410) HEMATOCRIT (BEAKER) (test code = 34.0 % 36.0-46.0 L 411) MEAN CORPUSCULAR VOLUME (BEAKER) 90.4 fL 82.0-99.0 (test code = 753) MEAN CORPUSCULAR HEMOGLOBIN 29.3 pg 27.0-33.0 (BEAKER) (test code = 751) MEAN CORPUSCULAR HEMOGLOBIN CONC 32.4 GM/DL 32.0-36.0 (BEAKER) (test code = 752) RED CELL DISTRIBUTION WIDTH 13.4 % 12.0-15.0 (BEAKER) (test code = 412) PLATELET COUNT (BEAKER) (test 188 K/CU MM 150-430 code = 756) MEAN PLATELET VOLUME (BEAKER) 10.1 fL 6.0-11.5 (test code = 754) NUCLEATED RED BLOOD CELLS 0 /100 WBC 0-0 (BEAKER) (test code = 413) NEUTROPHILS RELATIVE PERCENT 66 % (BEAKER) (test code = 429) LYMPHOCYTES RELATIVE PERCENT 24 % (BEAKER) (test code = 430) MONOCYTES RELATIVE PERCENT 6 % (BEAKER) (test code = 431) EOSINOPHILS RELATIVE PERCENT 2 % (BEAKER) (test code = 432) BASOPHILS RELATIVE PERCENT 0 % (BEAKER) (test code = 437) NEUTROPHILS ABSOLUTE COUNT 5.50 K/ L 1.80-8.00 (BEAKER) (test code = 670) LYMPHOCYTES ABSOLUTE COUNT 2.01 K/ L 1.48-4.50 (BEAKER) (test code = 414) MONOCYTES ABSOLUTE COUNT (BEAKER) 0.53 K/ L 0.00-1.30 (test code = 415) EOSINOPHILS ABSOLUTE COUNT 0.19 K/ L 0.00-0.50 (BEAKER) (test code = 416) BASOPHILS ABSOLUTE COUNT (BEAKER) 0.03 K/ L 0.00-0.20 (test code = 417) IMMATURE GRANULOCYTES-RELATIVE 0 % 0-0 PERCENT (BEAKER) (test code = 2801) BASIC METABOLIC [id number] 11:19:00 Test Item Value Reference Range Interpretation Comments SODIUM (test code = 142 MMOL/L 137-145 N NA) POTASSIUM (test code = 3.8 MMOL/L 3.5-5.1 N K) CHLORIDE (test code = 106 MMOL/L 98-107 N CL) CARBON DIOXIDE (test 29 MMOL/L 22-30 N code = CO2) GLUCOSE (test code = 75 MG/DL 74-106 N GLU) BLOOD UREA NITROGEN 11 MG/DL 7-17 N (test code = BUN) GLOMERULAR FILTRATION > 60 Report ing units: RATE (test code = GFR) ml/mi n/1.73 m2 (Modified MDRD Formula)Referen ce Range: > or = 6 0 ml/min/1.73 m2 CREATININE (test code 0.70 MG/DL 0.52-1.04 N = CREAT) CALCIUM (test code = 9.4 MG/DL 8.4-10.2 N CA) BASIC METABOLIC [id number] 11:12:00 Test Item Value Reference Range Interpretation Comments SODIUM (test code = 142 MMOL/L 137-145 N NA) POTASSIUM (test code = 3.8 MMOL/L 3.5-5.1 N K) CHLORIDE (test code = 106 MMOL/L 98-107 N CL) CARBON DIOXIDE (test 29 MMOL/L 22-30 N code = CO2) GLUCOSE (test code = MG/DL 74-106 GLU) BLOOD UREA NITROGEN 11 MG/DL 7-17 N (test code = BUN) GLOMERULAR FILTRATION > 60 Report ing units: RATE (test code = GFR) ml/mi n/1.73 m2 (Modified MDRD Formula)Referen ce Range: > or = 6 0 ml/min/1.73 m2 CREATININE (test code 0.70 MG/DL 0.52-1.04 N = CREAT) CALCIUM (test code = MG/DL 8.7-9.7 CA) CBC W/AUTO [id number] 11:02:00 Test Item Value Reference Range Interpretation Comments WHITE BLOOD CELL (test code = 8.3 K/MM3 3.8-9.8 N WBC) RED BLOOD CELL (test code = 4.21 M/MM3 3.58-4.97 N RBC) HEMOGLOBIN (test code = HGB) 12.0 G/DL 11.2-14.9 N HEMATOCRIT (test code = HCT) 38.9 % 33.2-43.5 N MEAN CELL VOLUME (test code = 92 fL 80.7-99.1 N MCV) MEAN CELL HGB (test code = MCH) 28.5 pg 27.0-34.1 N MEAN CELL HGB CONCETRATION 30.8 % 32.2-35.7 L (test code = MCHC) RED CELL DISTRIBUTION WIDTH 13.4 % 12.1-15.2 N (test code = RDW) PLATELET COUNT (test code = 201 K/MM3 129-368 N PLT) MEAN PLATELET VOLUME (test code 9.3 fl 7.4-10.4 N = MPV) NEUTROPHIL % (test code = NT%) 57.8 % 43-75 N IMMATURE GRANULOCYTE % (test 0.4 % 0.0-2.0 N code = IG%) LYMPHOCYTE % (test code = LY%) 32.6 % 14-44 N MONOCYTE % (test code = MO%) 6.2 % 4-13 N EOSINOPHIL % (test code = EO%) 2.4 % 0-6 N BASOPHIL % (test code = BA%) 0.6 % 0-2 N NUCLEATED RBC % (test code = 0.0 % 0-1.0 N NRBC%) NEUTROPHIL # (test code = NT#) 4.78 K/mm3 2.0-7.6 N IMMATURE GRANULOCYTE # (test 0.03 x10 3/uL 0-0.03 N code = IG#) LYMPHOCYTE # (test code = LY#) 2.70 K/mm3 1.0-3.8 N MONOCYTE # (test code = MO#) 0.51 K/mm3 0.1-0.8 N EOSINOPHIL # (test code = EO#) 0.20 K/mm3 0.0-0.2 N BASOPHIL # (test code = BA#) 0.05 K/mm3 0.0-0.2 N NUCLEATED RBC # (test code = 0.00 K/mm3 0.0-0.1 N NRBC#) Novel Coronavirus 2018 [id number] 08:26:00 Test Item Value Reference Range Interpretation Comments Novel Coronavirus Not Detected Not Detected Testing wa s performed 2018 Inhouse (test using the Apt[employer] code = COVNONPUI) SARS-CoV-2 assay.This nucleic acid amplification t est was developed and itsperformance characteristics determined [facility]. Nucleic acid amplification t ests include PCRand TMA. This test has not be en FDA cleared or appr reyna.This test has been a uthorized by FDA under an Emergency UseAuthorizatio n (EUA). This test is on ly authorized fort he duration of vikram e the declaration [place] t circumstancesex ist justifying the authorization o f the emergency use o fin vitro diagnostic test s for detection of SA RS-CoV-2 virusand/or ame gnosis of COVID-19 infect ion under tbompdt540(b)(1 ) of the Act, 21 U.S.C. 360bbb-3(b) (1) , unless theauthorizatio n is terminated or r evoked sooner.When ame gnostic testing is nega tive, the possibility of afalse negative result should be considered i n the contextof a pat ient's recent exposure s and the presence ofclin ical signs and sympt oms consistent with COVID-19. Anind ividual without symptom s of COVID-19 and wh o is notshedding MARCELL S-CoV-2 virus would exp ect to have a negative (not detected) resul t in this assay.Performed At: [facility] [place] [id number] [place], [place] [id number] silke Suero MD Ph:[phone] RAD, CHEST, 2 [id number] 11:41:00Reason for Exam:->sobFINAL REPORT History: Shortness of breath. FINDINGS: Compared with January 15, 2018, the heart and mediastinum are stable. As before, the heart is mildly enlarged. Moderate atherosclerotic calcification of the aorta is present. Mild increased pulmonary vascularity is present without overt edema. Moderate compression deformity of a vertebral body in the thoracolumbar region is noted and appear stable since the previous study. IMPRESSION: 1. Cardiomegaly, unchanged. No acute cardiopulmonary abnormalities. 2. Vertebral compression fracture, stable since the prior exam, likely chronic. Signed: Trish Perez Verified Date/Time: 04/06/2020 11:41:33 Reading Location: [facility] diology Reading Room XR Chest 2 [id number] 11:41:00Interface, External Ris In - 04/06/2020 11:43 AM CDTFINAL REPORT History: Shortness of breath. FINDINGS: Compared with January 15, 2018, the heart and mediastinum are stable. As before, the heart is mildly enlarged. Moderate atherosclerotic calcification of the aorta is present. Mild increased pulmonary vascularity is present without overt edema. Moderate compression deformity of a vertebral body in the thoracolumbar region is noted and appear stable since the previous study. IMPRESSION: 1. Cardiomegaly, unchanged. No acute cardiopulmonary abnormalities. 2. Vertebral compressionfracture, stable since the prior exam, likely chronic. Signed: Trish Perez Verified Date/Time: 04/06/2020 11:41:33 Reading Location: [facility] 19[facility]26:00 Test Item Value Reference Range Interpretation Comments PROTIME (BEAKER) (test code = 759) 10.5 sec 9.3-12.0 INR (BEAKER) (test code = 370) 1.0 <=5.9 PARTIAL THROMBOPLASTIN TIME (BEAKER) 26.2 sec 23.0-35.0 (test code = 760) RECOMMENDED COUMADIN/WARFARIN INR THERAPY RANGESSTANDARD DOSE: 2.0 - 3.0 Includes: PROPHYLAXIS forvenous thrombosis, systemic embolization; TREATMENT for venous thrombosis and/or pulmonary embolus.HIGH RISK: Target INR is 2.5-3.5 for patients with mechanical heart valves.Final Information (Auto Output)Final Information (Auto Output)Final Information (Auto Output)TROPONIN [id number] 19:20:00 Test Item Value Reference Range Interpretation Comments TROPONIN I (BEAKER) (test code = 0.06 ng/mL 0.00-0.15 397) Troponin I (TnI) levels must be interpreted in the context of the presenting symptoms and the clinical findings. Elevated TnI levels indicate myocardial damage, but are not specific for ischemic heart disease. Elevated TnI levels are seen in patients with other cardiac conditions (including myocarditis and congestive heart failure), and slight TnI elevations occur in patients with other conditions, including sepsis, renal failure, acidosis, acute neurological disease, and persistent tachyarrhythmia.COMPREHENSIVE METABOLIC [id number] 19:14:00 Test Item Value Reference Range Interpretation Comments TOTAL PROTEIN 7.2 gm/dL 6.0-8.5 (BEAKER) (test code = 770) ALBUMIN (BEAKER) 4.2 g/dL 3.5-5.0 (test code = 1145) ALKALINE PHOSPHATASE 70 U/L 30-115 (BEAKER) (test code = 346) BILIRUBIN TOTAL 0.3 mg/dL 0.1-1.2 (BEAKER) (test code = 377) SODIUM (BEAKER) (test 139 meq/L 135-148 code = 381) POTASSIUM (BEAKER) 3.7 meq/L 3.6-5.5 (test code = 379) CHLORIDE (BEAKER) 103 meq/L 98-106 (test code = 382) CO2 (BEAKER) (test 26 meq/L 20-29 code = 355) BLOOD UREA NITROGEN 14 mg/dL 10-26 (BEAKER) (test code = 354) CREATININE (BEAKER) 0.94 mg/dL 0.50-1.20 (test code = 358) GLUCOSE RANDOM 113 mg/dL 70-110 H (BEAKER) (test code = 652) CALCIUM (BEAKER) 9.8 mg/dL 8.5-10.5 (test code = 697) AST (SGOT) (BEAKER) 13 U/L 5-40 (test code = 353) ALT (SGPT) (BEAKER) 13 U/L 5-50 (test code = 347) EGFR (BEAKER) (test 59 mL/min/1.73 ESTIMA ANA GFR IS code = 1092) sq m NOT ACCURATE CREATININE CLEARANCE IN PREDICTING GLOMERULAR FILTRATION RATE . ESTIMATED GFR I S NOT APPLICABLE FOR DIALYSIS PATIEN TS. CREATINE KINASE (CK)2018-12-28 19:14:00 Test Item Value Reference Range Interpretation Comments CREATINE KINASE TOTAL (BEAKER) (test 51 U/L 25-235 code = 380) CBC W/PLT COUNT & AUTO [id number] 18:56:00 Test Item Value Reference Range Interpretation Comments WHITE BLOOD CELL COUNT (BEAKER) 7.8 K/ L 4.0-10.0 (test code = 775) RED BLOOD CELL COUNT (BEAKER) 4.19 M/ L 4.00-5.00 (test code = 761) HEMOGLOBIN (BEAKER) (test code = 12.1 GM/DL 12.0-15.5 410) HEMATOCRIT (BEAKER) (test code = 37.0 % 36.0-46.0 411) MEAN CORPUSCULAR VOLUME (BEAKER) 88.3 fL 82.0-99.0 (test code = 753) MEAN CORPUSCULAR HEMOGLOBIN 28.9 pg 27.0-33.0 (BEAKER) (test code = 751) MEAN CORPUSCULAR HEMOGLOBIN CONC 32.7 GM/DL 32.0-36.0 (BEAKER) (test code = 752) RED CELL DISTRIBUTION WIDTH 14.6 % 12.0-15.0 (BEAKER) (test code = 412) PLATELET COUNT (BEAKER) (test 244 K/CU MM 150-430 code = 756) MEAN PLATELET VOLUME (BEAKER) 9.5 fL 6.0-11.5 (test code = 754) NUCLEATED RED BLOOD CELLS 0 /100 WBC 0-0 (BEAKER) (test code = 413) NEUTROPHILS RELATIVE PERCENT 64 % (BEAKER) (test code = 429) LYMPHOCYTES RELATIVE PERCENT 26 % (BEAKER) (test code = 430) MONOCYTES RELATIVE PERCENT 7 % (BEAKER) (test code = 431) EOSINOPHILS RELATIVE PERCENT 2 % (BEAKER) (test code = 432) BASOPHILS RELATIVE PERCENT 0 % (BEAKER) (test code = 437) NEUTROPHILS ABSOLUTE COUNT 4.99 K/ L 1.80-8.00 (BEAKER) (test code = 670) LYMPHOCYTES ABSOLUTE COUNT 2.06 K/ L 1.48-4.50 (BEAKER) (test code = 414) MONOCYTES ABSOLUTE COUNT (BEAKER) 0.54 K/ L 0.00-1.30 (test code = 415) EOSINOPHILS ABSOLUTE COUNT 0.18 K/ L 0.00-0.50 (BEAKER) (test code = 416) BASOPHILS ABSOLUTE COUNT (BEAKER) 0.03 K/ L 0.00-0.20 (test code = 417) IMMATURE GRANULOCYTES-RELATIVE 0 % 0-0 PERCENT (BEAKER) (test code = 2801) SCR MAMM BILATERAL LAMBERTO CAD [id number] 11:44:07 - SCR MAMM BILATERAL LAMBERTO CAD DIGITALBILATERAL DIGITAL SCREENING MAMMOGRAM 3D/2D WITH CAD: 11/22/2018 CLINICAL: Asymptomatic. Digital breast tomosynthesis was performed in addition to routine CC and MLO views. Current mammographic images were evaluated by either a [employer] M-Vu or a [employer] ImageChecker CAD (computer aided detection system). Comparison is made to exams dated 01/17/2017 mammogram, 09/17/2015 mammogram, 10/18/2013 mammogram - [facility] 01/28/2011 mammogram - [facility], 11/11/2013 mammogram, and 11/11/2013 ultrasound - [facility]. The tissue of both breasts is heterogeneously dense. This may lower the sensitivity of mammography. There is a biopsy clip in the left breast. No suspicious mass, architectural distortion, malignant type calcification, or lymph node abnormality detected. Breast architecture is stable compared to priorexams.IMPRESSION: NEGATIVEThere is no mammographic evidence of malignancy. Resume annual screening mammography in one year. Radha Maravilla M.D. ar/penrad:11/22/2018 11:44:07 Imaging Technol ogist: [address] [facility] [place], [facility] sent: BIRADS 1-2 Normal Mammogram BI-RADS: 1 NegativeRAD, CHEST, 2 [id number] 13:41:00Reason for Exam:->copdFINAL REPORT TECHNIQUE: 2 views of the chest. COMPARISON: None FINDINGS: Thecardiac silhouette is within normal limits. Mediastinum is unremarkable. Lungs are clear. Wedge deformity of the lower thoracic vertebral body noted, likely old.. Soft tissues appear unremarkable. IMPRESSION: No acute cardiopulmonary disease. Signed: Fabian Mosqueda MDReport Verified Date/Time: 01/15/2018 13:41:17 Reading Location: [facility] Radiology Reading Room
[2021-02-23] MEDS ORDERED: GLUCAGON 1 MG/VIAL IM PRN (19:32)
[2021-02-23] MEDS ORDERED: D50W 25 GM/50 ML SYRINGE IV PRN (19:32)
[2021-02-23] MEDS ORDERED: DOCUSATE NA/SENNA CONC 1 TAB PO PRN (20:06)
[2021-02-23 20:49] LABS: Urine Appearance CLEAR (Clear); Urine Blood NEGATIVE (Negative); Urine Color DK YELLOW (Yellow); Urine Glucose 3+ (Negative); Urine Protein TRACE (Negative); Urine Specific Gravity >=1.030 (1.005-1.030); Urine Urobilinogen 0.2 mg/dL (0.2-1.0)
[2021-02-23 20:50] LABS: Urine Bilirubin NEGATIVE (Negative)
[2021-02-23] MEDS: CYCLOBENZAPRINE 10 MG TAB PO SCH (20:55)
[2021-02-23] MEDS: FERROUS SULFATE 325 MG TAB PO SCH (20:55)
[2021-02-23] MEDS: carvediloL 6.25 MG TAB PO SCH (20:56)
[2021-02-23 20:57] LABS: Urine Bacteria <20 /HPF (<20); Urine RBC NONE SEEN /HPF (NONE SEEN)
[2021-02-23 20:58] LABS: Urine Mucus MOD /HPF (NONE SEEN)
[2021-02-23] MEDS: PRIMIDONE 50 MG TAB PO SCH (21:00)
[2021-02-23] MEDS: INSULIN -REGULAR HUMAN 50 UNIT/0.5 ML ML IV SCH (21:01)
[2021-02-23] MEDS: TRAMADOL 37.5mg/APAP 325mg PER TAB PO PRN (22:48)
[2021-02-24 06:01] LABS: Basophils % 0.5 % (0-1.3); Hematocrit 33.5 % (36.0-45.0); Lymphocytes % 36.2 % (15.3-44.8); MPV 7.9 fL (7.6-11.3); RBC Red Blood Cell Count 3.76 M/uL (3.86-4.86)
[2021-02-24] MEDS: LEVOTHYROXINE SOD 0.1 MG TAB PO SCH (06:42)
[2021-02-24] MEDS: INSULIN -REGULAR HUMAN 50 UNIT/0.5 ML ML IV SCH (07:01)
[2021-02-24 07:20] LABS: Albumin 3.1 g/dL (3.4-5.0); Magnesium 2.1 mg/dL (1.8-2.4); Potassium 3.6 mmol/L (3.5-5.1); Prealbumin 14.7 mg/dL (20-40)
[2021-02-24] MEDS: GALANTAMINE 4 MG TAB PO SCH (08:00)
[2021-02-24] MEDS: TRAMADOL 37.5mg/APAP 325mg PER TAB PO PRN ×2 (08:39→14:15)
[2021-02-24] MEDS: FERROUS SULFATE 325 MG TAB PO SCH ×2 (08:42→19:38)
[2021-02-24] MEDS: ASPIRIN 81 MG CHEWABLE TABLET PO SCH (08:42)
[2021-02-24] MEDS: CITALOPRAM 10 MG TABLET PO SCH (08:42)
[2021-02-24] MEDS: CLOPIDOGREL 75 MG TABLET PO SCH (08:42)
[2021-02-24] MEDS: carvediloL 6.25 MG TAB PO SCH ×2 (08:42→19:37)
[2021-02-24] MEDS ORDERED: METFORMIN HCL 500 MG TAB PO SCH (09:15)
[2021-02-24] MEDS: BUMETANIDE 1 MG TABLET PO SCH (09:23)
[2021-02-24] MEDS: ONDANSETRON 4 MG (ODT) TAB PO PRN (11:47)
[2021-02-24] MEDS: INSULIN -REGULAR HUMAN 50 UNIT/0.5 ML ML SQ SCH ×3 (12:15→19:36)
[2021-02-24] MEDS: GABAPENTIN 300 MG CAP PO SCH ×2 (14:53→19:39)
[2021-02-24] MEDS: METFORMIN HCL 500 MG TAB PO SCH (16:47)
[2021-02-24] MEDS ORDERED: MAGNESIUM HYDROXIDE 8% 30 ML PO PRN (16:55)
[2021-02-24] MEDS ORDERED: BISACODYL 10 MG RECTAL SUPP PR PRN (17:57)
[2021-02-24] MEDS ORDERED: D50W 25 GM/50 ML VIAL IV PRN (18:00)
[2021-02-24] MEDS: DOCUSATE NA/SENNA CONC 1 TAB PO SCH (19:37)
[2021-02-24] MEDS: CYCLOBENZAPRINE 10 MG TAB PO SCH (19:38)
[2021-02-24] MEDS: PRIMIDONE 50 MG TAB PO SCH (19:38)
[2021-02-24] MEDS: ACETAMINOPHEN 500 MG TAB PO PRN (19:38)
[2021-02-24] MEDS: GLUCERNA SHAKE 237 ML CAN PO SCH (19:39)
[2021-02-24] MEDS ORDERED: DOCUSATE NA/SENNA CONC 1 TAB PO SCH (20:00)
[2021-02-25] MEDS: LEVOTHYROXINE SOD 0.1 MG TAB PO SCH (06:30)
[2021-02-25 06:50] LABS: Absolute Lymphocytes (CBC) 1.7 K/uL (0.7-4.9); Basophils % 0.6 % (0-1.3); Hematocrit 38.1 % (36.0-45.0); Lymphocytes % 16.6 % (15.3-44.8); MPV 7.5 fL (7.6-11.3); RBC Red Blood Cell Count 4.22 M/uL (3.86-4.86)
[2021-02-25] MEDS: TRAMADOL 37.5mg/APAP 325mg PER TAB PO PRN ×3 (06:57→20:31)
[2021-02-25] MEDS: LIDOCAINE 4% PATCH TOP SCH (06:58)
[2021-02-25 07:10] LABS: Albumin 3.3 g/dL (3.4-5.0); Magnesium 2.1 mg/dL (1.8-2.4); Potassium 3.3 mmol/L (3.5-5.1)
[2021-02-25] MEDS: ONDANSETRON 4 MG (ODT) TAB PO PRN (07:48)
[2021-02-25] MEDS: GALANTAMINE 4 MG TAB PO SCH (07:51)
[2021-02-25] MEDS: GABAPENTIN 300 MG CAP PO SCH ×2 (07:51→19:27)
[2021-02-25] MEDS: FERROUS SULFATE 325 MG TAB PO SCH ×2 (07:51→19:27)
[2021-02-25] MEDS: carvediloL 6.25 MG TAB PO SCH ×2 (07:52→19:27)
[2021-02-25] MEDS: METFORMIN HCL 500 MG TAB PO SCH ×2 (07:52→17:14)
[2021-02-25] MEDS: CLOPIDOGREL 75 MG TABLET PO SCH (07:52)
[2021-02-25] MEDS: CITALOPRAM 10 MG TABLET PO SCH (07:52)
[2021-02-25] MEDS: ASPIRIN 81 MG CHEWABLE TABLET PO SCH (07:52)
[2021-02-25] MEDS ORDERED: METFORMIN HCL 500 MG TAB PO SCH (08:00)
[2021-02-25] MEDS: GLUCERNA SHAKE 237 ML CAN PO SCH ×2 (08:00→19:30)
[2021-02-25] MEDS: INSULIN -REGULAR HUMAN 50 UNIT/0.5 ML ML SQ SCH ×4 (08:27→19:28)
[2021-02-25] MEDS ORDERED: POTASSIUM CL SA 10 MEQ TAB PO ONE (16:48)
[2021-02-25] MEDS: PRIMIDONE 50 MG TAB PO SCH (19:26)
[2021-02-25] MEDS: CYCLOBENZAPRINE 10 MG TAB PO SCH (19:27)
[2021-02-25] MEDS: CRANBERRY FRUIT EXTRACT 200 MG CAP PO SCH (19:28)
[2021-02-25] MEDS: DOCUSATE NA/SENNA CONC 1 TAB PO SCH (19:28)
[2021-02-26] MEDS: TRAMADOL 37.5mg/APAP 325mg PER TAB PO PRN ×4 (03:54→19:36)
[2021-02-26] MEDS: LEVOTHYROXINE SOD 0.1 MG TAB PO SCH (06:24)
[2021-02-26] MEDS: BUMETANIDE 1 MG TABLET PO SCH (06:40)
[2021-02-26] MEDS: carvediloL 6.25 MG TAB PO SCH ×2 (06:41→19:36)
[2021-02-26 07:01] LABS: Potassium 3.3 mmol/L (3.5-5.1)
[2021-02-26] MEDS: LIDOCAINE 4% PATCH TOP SCH (07:50)
[2021-02-26] MEDS: INSULIN -REGULAR HUMAN 50 UNIT/0.5 ML ML SQ SCH ×4 (07:51→19:37)
[2021-02-26] MEDS: CITALOPRAM 10 MG TABLET PO SCH (07:52)
[2021-02-26] MEDS: CLOPIDOGREL 75 MG TABLET PO SCH (07:52)
[2021-02-26] MEDS: GALANTAMINE 4 MG TAB PO SCH (07:52)
[2021-02-26] MEDS: METFORMIN HCL 500 MG TAB PO SCH ×2 (07:53→16:43)
[2021-02-26] MEDS: FERROUS SULFATE 325 MG TAB PO SCH ×2 (07:53→19:35)
[2021-02-26] MEDS: GABAPENTIN 300 MG CAP PO SCH ×2 (07:53→19:35)
[2021-02-26] MEDS: POTASSIUM CL SA 10 MEQ TAB PO SCH (07:53)
[2021-02-26] MEDS: ASPIRIN 81 MG CHEWABLE TABLET PO SCH (07:53)
[2021-02-26] MEDS: CRANBERRY FRUIT EXTRACT 200 MG CAP PO SCH (07:53)
[2021-02-26] MEDS: GLUCERNA SHAKE 237 ML CAN PO SCH ×2 (07:54→19:37)
[2021-02-26] MEDS: TRELEGY ELLIPTA IH SCH (07:55)
[2021-02-26] MEDS ORDERED: ALBUTEROL INHALER 60 PUFF/8 GM IH SCH (08:00)
[2021-02-26] MEDS ORDERED: [UNRECOGNIZED DRUG - OTHER] IH PRN (08:00)
[2021-02-26] MEDS ORDERED: TRELEGY ELLIPTA IH SCH (08:00)
[2021-02-26] MEDS: ONDANSETRON 4 MG (ODT) TAB PO PRN ×2 (08:35→11:56)
--- NOTE | 2021-02-26 09:48 | P.RH.PN ---
Estimated Length of Stay: 14 Expected Discharge Date: 03/09/21 Discharge Disposition Plan: Home Family Support: Yes Shelter Goal: Mobility, Transfers, Self Care Vital Signs: Last Vital Signs Temp 98.6 F 02/26/21 07:04 Pulse 60 02/26/21 07:45 Resp 16 02/26/21 08:50 BP 149/73 H 02/26/21 07:45 Pulse Ox 93 02/26/21 08:50 Laboratory: Laboratory Last Values WBC 10.10 K/uL (4.3-10.9) D 02/25/21 06:22 RBC 4.22 M/uL (3.86-4.86) 02/25/21 06:22 Hgb 13.1 g/dL (12.0-15.0) 02/25/21 06:22 Hct 38.1 % (36.0-45.0) 02/25/21 06:22 MCV 90.1 fL (80-100) 02/25/21 06:22 MCH 30.9 pg (27.0-35.0) 02/25/21 06:22 MCHC 34.3 g/dL (32.0-36.0) 02/25/21 06:22 RDW 13.9 % (12.1-15.2) 02/25/21 06:22 Plt Count 237 K/uL (152-406) 02/25/21 06:22 MPV 7.5 fL (7.6-11.3) L 02/25/21 06:22 Neutrophils % 73.7 % (41.7-73.7) 02/25/21 06:22 Lymphocytes % 16.6 % (15.3-44.8) 02/25/21 06:22 Monocytes % 7.0 % (3.3-12.3) 02/25/21 06:22 Eosinophils % 2.1 % (0-4.4) 02/25/21 06:22 Basophils % 0.6 % (0-1.3) 02/25/21 06:22 Absolute Neutrophils 7.5 K/uL (1.8-8.0) 02/25/21 06:22 Absolute Lymphocytes 1.7 K/uL (0.7-4.9) 02/25/21 06:22 Absolute Monocytes 0.7 K/uL (0.1-1.3) 02/25/21 06:22 Absolute Eosinophils 0.2 K/uL (0-0.5) 02/25/21 06:22 Absolute Basophils 0.1 K/uL (0-0.5) 02/25/21 06:22 Sodium 135 mmol/L (136-145) L 02/26/21 06:29 Potassium 3.3 mmol/L (3.5-5.1) L 02/26/21 06:29 Chloride 99 mmol/L (98-107) 02/26/21 06:29 Carbon Dioxide 28 mmol/L (21-32) 02/26/21 06:29 BUN 16 mg/dL (7-18) 02/26/21 06:29 Creatinine 0.68 mg/dL (0.55-1.3) 02/26/21 06:29 Estimated GFR 85 mL/min (=/>90) L 02/26/21 06:29 Glucose 247 mg/dL (74-106) H 02/26/21 06:29 POC Glucose 240 mg/dL (65-120) H 02/26/21 07:24 Calcium 8.7 mg/dL (8.5-10.1) 02/26/21 06:29 Magnesium 2.1 mg/dL (1.8-2.4) 02/25/21 06:22 Albumin 3.3 g/dL (3.4-5.0) L 02/25/21 06:22 Prealbumin 18.0 mg/dL (20-40) L 02/25/21 06:22 Urine Color Dk yellow (Yellow) 02/23/21 20:26 Urine Appearance Clear (Clear) 02/23/21 20: Urine pH 6.0 (5.0-7.0) 02/23/21 20: Ur Specific Zenia >=1.030 (1.005-1.030) 02/23/21 20:26 Glucose (UA)(Auto) 3+ (Negative) H 02/23/21 20:26 Urine Ketones Trace (Negative) H 02/23/21 20:26 Urine Blood Negative (Negative) 02/23/21 20:26 Urine Nitrite Negative (Negative) 02/23/21 20: Urine Bilirubin Negative (Negative) 02/23/21 20: Urine Urobilinogen 0.2 mg/dL (0.2-1.0) 02/23/21 20:26 Ur Leukocyte Esterase Negative (Negative) 02/23/21 20:26 Urine RBC None seen /HPF (NONE SEEN) 02/23/21 20:26 Urine WBC <5 /HPF (<5) 02/23/21 20:26 Ur Squamous Epith Cells 10-20 /HPF (NONE SEEN) H 02/23/21 20:26 Urine Bacteria <20 /HPF (<20) 02/23/21 20:26 Urine Mucus Mod /HPF (NONE SEEN) 02/23/21 20:26 Urine Culture Reflexed Not needed 02/23/21 20:26 Urine Total Protein Trace (Negative) H 02/23/21 20:26 SARS-CoV-2 RNA (RT-PCR) Negative (NEGATIVE) 02/23/21 23:03 Weight: 202 lb Wound Present: No Closed Surgical Incision Present: No Negative Pressure Wound Therapy Present: No Physician Update: Labs reviewed and are stable. She is still in a lot of pain due to the marked lower back pain secondary to the T12 and L1 fractures. She is making fair overall progress with all therapy. Functional Improvement: Patient is showing good overall progress w/ transfers and gait tx. when pain in decreased. Patient presents w/ good attitude toward therapy, and presents w/ good work ethic. Summary: Patient's care plan and mcfp goals have been reviewed and revised as necessary. Please see the Rehabilitation Signature page for all necessary signatures.
[2021-02-26] MEDS: DOCUSATE NA/SENNA CONC 1 TAB PO SCH (19:35)
[2021-02-26] MEDS: CYCLOBENZAPRINE 10 MG TAB PO SCH (19:35)
[2021-02-26] MEDS: PRIMIDONE 50 MG TAB PO SCH (19:35)
[2021-02-27] MEDS: TRAMADOL 37.5mg/APAP 325mg PER TAB PO PRN ×5 (04:22→19:57)
[2021-02-27] MEDS: LEVOTHYROXINE SOD 0.1 MG TAB PO SCH (06:31)
[2021-02-27] MEDS: LIDOCAINE 4% PATCH TOP SCH (06:32)
[2021-02-27] MEDS: BUMETANIDE 1 MG TABLET PO SCH (07:18)
[2021-02-27] MEDS: carvediloL 6.25 MG TAB PO SCH ×2 (07:18→19:59)
[2021-02-27] MEDS: TRELEGY ELLIPTA IH SCH (07:19)
[2021-02-27] MEDS: INSULIN -REGULAR HUMAN 50 UNIT/0.5 ML ML SQ SCH ×4 (07:59→19:59)
[2021-02-27] MEDS: CITALOPRAM 10 MG TABLET PO SCH (08:00)
[2021-02-27] MEDS: CLOPIDOGREL 75 MG TABLET PO SCH (08:00)
[2021-02-27] MEDS: GALANTAMINE 4 MG TAB PO SCH (08:00)
[2021-02-27] MEDS: GLUCERNA SHAKE 237 ML CAN PO SCH ×2 (08:00→19:56)
[2021-02-27] MEDS: FERROUS SULFATE 325 MG TAB PO SCH ×2 (08:00→19:59)
[2021-02-27] MEDS: GABAPENTIN 300 MG CAP PO SCH ×2 (08:01→19:59)
[2021-02-27] MEDS: ASPIRIN 81 MG CHEWABLE TABLET PO SCH (08:01)
[2021-02-27] MEDS: POTASSIUM CL SA 10 MEQ TAB PO SCH (08:01)
[2021-02-27] MEDS: METFORMIN HCL 500 MG TAB PO SCH ×2 (08:01→17:04)
[2021-02-27] MEDS: CRANBERRY FRUIT EXTRACT 200 MG CAP PO SCH ×2 (09:37→19:56)
[2021-02-27] MEDS: PRIMIDONE 50 MG TAB PO SCH (19:56)
[2021-02-27] MEDS: DOCUSATE NA/SENNA CONC 1 TAB PO SCH (19:57)
[2021-02-27] MEDS: CYCLOBENZAPRINE 10 MG TAB PO SCH (19:57)
[2021-02-28] MEDS: TRAMADOL 37.5mg/APAP 325mg PER TAB PO PRN ×5 (03:32→23:46)
[2021-02-28] MEDS: LIDOCAINE 4% PATCH TOP SCH (05:10)
[2021-02-28] MEDS: LEVOTHYROXINE SOD 0.1 MG TAB PO SCH (06:13)
[2021-02-28] MEDS: TRELEGY ELLIPTA IH SCH (07:19)
[2021-02-28] MEDS: GLUCERNA SHAKE 237 ML CAN PO SCH ×2 (08:00→20:00)
[2021-02-28] MEDS: INSULIN -REGULAR HUMAN 50 UNIT/0.5 ML ML SQ SCH ×4 (08:04→20:05)
[2021-02-28] MEDS: GALANTAMINE 4 MG TAB PO SCH (08:12)
[2021-02-28] MEDS: CITALOPRAM 10 MG TABLET PO SCH (08:13)
[2021-02-28] MEDS: METFORMIN HCL 500 MG TAB PO SCH ×2 (08:13→17:00)
[2021-02-28] MEDS: POTASSIUM CL SA 10 MEQ TAB PO SCH (08:13)
[2021-02-28] MEDS: FERROUS SULFATE 325 MG TAB PO SCH ×2 (08:13→20:02)
[2021-02-28] MEDS: ASPIRIN 81 MG CHEWABLE TABLET PO SCH (08:13)
[2021-02-28] MEDS: CRANBERRY FRUIT EXTRACT 200 MG CAP PO SCH ×2 (08:14→19:58)
[2021-02-28] MEDS: CLOPIDOGREL 75 MG TABLET PO SCH (08:14)
[2021-02-28] MEDS: carvediloL 6.25 MG TAB PO SCH ×2 (08:14→20:00)
[2021-02-28] MEDS: GABAPENTIN 300 MG CAP PO SCH ×2 (08:14→19:58)
[2021-02-28] MEDS: PRIMIDONE 50 MG TAB PO SCH (19:57)
[2021-02-28] MEDS: DOCUSATE NA/SENNA CONC 1 TAB PO SCH (19:57)
[2021-02-28] MEDS: CYCLOBENZAPRINE 10 MG TAB PO SCH (20:00)
[2021-02-28] MEDS: MELATONIN 3 MG TABLET PO PRN (23:46)
[2021-03-01] MEDS: TRAMADOL 37.5mg/APAP 325mg PER TAB PO PRN ×3 (04:30→12:08)
[2021-03-01] MEDS: LEVOTHYROXINE SOD 0.1 MG TAB PO SCH (07:24)
[2021-03-01] MEDS: INSULIN -REGULAR HUMAN 50 UNIT/0.5 ML ML SQ SCH ×4 (07:30→20:46)
[2021-03-01] MEDS: GLUCERNA SHAKE 237 ML CAN PO SCH ×2 (08:00→20:00)
[2021-03-01] MEDS: LIDOCAINE 4% PATCH TOP SCH (08:04)
[2021-03-01] MEDS: ONDANSETRON 4 MG (ODT) TAB PO PRN (08:04)
[2021-03-01] MEDS: ASPIRIN 81 MG CHEWABLE TABLET PO SCH (08:05)
[2021-03-01] MEDS: CITALOPRAM 10 MG TABLET PO SCH (08:05)
[2021-03-01] MEDS: carvediloL 6.25 MG TAB PO SCH ×2 (08:06→20:44)
[2021-03-01] MEDS: CLOPIDOGREL 75 MG TABLET PO SCH (08:06)
[2021-03-01] MEDS: METFORMIN HCL 500 MG TAB PO SCH ×2 (08:07→17:21)
[2021-03-01] MEDS: GABAPENTIN 300 MG CAP PO SCH ×2 (08:07→20:43)
[2021-03-01 08:30] LABS: BUN Blood Urea Nitrogen 9 mg/dL (7-18); Bicarbonate 28 mmol/L (21-32); Glucose Level 187 mg/dL (74-106); Sodium Level 135 mmol/L (136-145)
[2021-03-01] MEDS: POTASSIUM CL SA 10 MEQ TAB PO SCH ×2 (08:47→20:43)
[2021-03-01] MEDS: GALANTAMINE 4 MG TAB PO SCH (08:47)
[2021-03-01] MEDS ORDERED: POTASSIUM CL SA 10 MEQ TAB PO ONE (09:05)
[2021-03-01] MEDS: CRANBERRY FRUIT EXTRACT 200 MG CAP PO SCH ×2 (10:11→20:45)
[2021-03-01] MEDS: FERROUS SULFATE 325 MG TAB PO SCH ×2 (10:19→20:45)
[2021-03-01] MEDS: TRELEGY ELLIPTA IH SCH (10:19)
[2021-03-01] MEDS: DOCUSATE NA/SENNA CONC 1 TAB PO SCH (20:43)
[2021-03-01] MEDS: CYCLOBENZAPRINE 10 MG TAB PO SCH (20:43)
[2021-03-01] MEDS: PRIMIDONE 50 MG TAB PO SCH (20:44)
[2021-03-02] MEDS: TRAMADOL 37.5mg/APAP 325mg PER TAB PO PRN ×4 (00:49→18:58)
[2021-03-02] MEDS: LEVOTHYROXINE SOD 0.1 MG TAB PO SCH (06:10)
[2021-03-02] MEDS: LIDOCAINE 4% PATCH TOP SCH (06:11)
[2021-03-02 06:42] LABS: BUN Blood Urea Nitrogen 8 mg/dL (7-18); Bicarbonate 28 mmol/L (21-32); Glucose Level 194 mg/dL (74-106); Potassium 3.2 mmol/L (3.5-5.1); Sodium Level 134 mmol/L (136-145)
[2021-03-02] MEDS: INSULIN -REGULAR HUMAN 50 UNIT/0.5 ML ML SQ SCH ×4 (06:46→20:09)
[2021-03-02] MEDS: GLUCERNA SHAKE 237 ML CAN PO SCH ×2 (08:00→19:01)
[2021-03-02] MEDS: ASPIRIN 81 MG CHEWABLE TABLET PO SCH (08:14)
[2021-03-02] MEDS: carvediloL 6.25 MG TAB PO SCH ×2 (08:14→19:03)
[2021-03-02] MEDS: POTASSIUM CL SA 10 MEQ TAB PO SCH ×2 (08:15→19:00)
[2021-03-02] MEDS: GABAPENTIN 300 MG CAP PO SCH ×2 (08:15→18:59)
[2021-03-02] MEDS: METFORMIN HCL 500 MG TAB PO SCH ×2 (08:15→16:40)
[2021-03-02] MEDS: CLOPIDOGREL 75 MG TABLET PO SCH (08:15)
[2021-03-02] MEDS: CRANBERRY FRUIT EXTRACT 200 MG CAP PO SCH ×2 (08:16→19:00)
[2021-03-02] MEDS ORDERED: POTASSIUM CL SA 10 MEQ TAB PO ONE (09:11)
[2021-03-02] MEDS: TRELEGY ELLIPTA IH SCH (09:11)
[2021-03-02] MEDS: BUMETANIDE 1 MG TABLET PO SCH (10:21)
[2021-03-02] MEDS: ONDANSETRON 4 MG (ODT) TAB PO PRN (10:22)
[2021-03-02] MEDS: CITALOPRAM 10 MG TABLET PO SCH (10:22)
[2021-03-02] MEDS: FERROUS SULFATE 325 MG TAB PO SCH ×2 (10:22→18:59)
[2021-03-02] MEDS: GALANTAMINE 4 MG TAB PO SCH (10:44)
[2021-03-02] MEDS: CYCLOBENZAPRINE 10 MG TAB PO SCH (20:06)
[2021-03-02] MEDS: PRIMIDONE 50 MG TAB PO SCH (20:06)
[2021-03-02] MEDS: DOCUSATE NA/SENNA CONC 1 TAB PO SCH (20:06)
[2021-03-03] MEDS: TRAMADOL 37.5mg/APAP 325mg PER TAB PO PRN ×5 (03:41→22:25)
[2021-03-03 06:32] LABS: Potassium 3.5 mmol/L (3.5-5.1)
[2021-03-03] MEDS: LEVOTHYROXINE SOD 0.1 MG TAB PO SCH (06:33)
[2021-03-03] MEDS: carvediloL 6.25 MG TAB PO SCH ×2 (06:34→19:39)
[2021-03-03] MEDS: LIDOCAINE 4% PATCH TOP SCH (06:35)
[2021-03-03] MEDS: TRELEGY ELLIPTA IH SCH (06:54)
[2021-03-03] MEDS: INSULIN -REGULAR HUMAN 50 UNIT/0.5 ML ML SQ SCH ×4 (08:00→19:40)
[2021-03-03] MEDS: GLUCERNA SHAKE 237 ML CAN PO SCH ×2 (08:00→19:40)
[2021-03-03] MEDS: ASPIRIN 81 MG CHEWABLE TABLET PO SCH (08:01)
[2021-03-03] MEDS: CRANBERRY FRUIT EXTRACT 200 MG CAP PO SCH ×2 (08:02→19:39)
[2021-03-03] MEDS: GABAPENTIN 300 MG CAP PO SCH ×2 (08:02→19:39)
[2021-03-03] MEDS: POTASSIUM CL SA 10 MEQ TAB PO SCH ×2 (08:02→19:38)
[2021-03-03] MEDS: CITALOPRAM 10 MG TABLET PO SCH (08:02)
[2021-03-03] MEDS: GALANTAMINE 4 MG TAB PO SCH (08:03)
[2021-03-03] MEDS: CLOPIDOGREL 75 MG TABLET PO SCH (08:03)
[2021-03-03] MEDS: METFORMIN HCL 500 MG TAB PO SCH ×2 (08:03→16:54)
[2021-03-03] MEDS: FERROUS SULFATE 325 MG TAB PO SCH ×2 (08:03→19:38)
[2021-03-03] MEDS: DOCUSATE NA/SENNA CONC 1 TAB PO SCH (19:37)
[2021-03-03] MEDS: CYCLOBENZAPRINE 10 MG TAB PO SCH (19:37)
[2021-03-03] MEDS: PRIMIDONE 50 MG TAB PO SCH (19:38)
[2021-03-03] MEDS: ACETAMINOPHEN 500 MG TAB PO PRN (19:39)
[2021-03-03] MEDS: MELATONIN 3 MG TABLET PO PRN (19:40)
[2021-03-04] MEDS: ACETAMINOPHEN 500 MG TAB PO PRN (00:55)
[2021-03-04 06:22] LABS: Absolute Lymphocytes (CBC) 2.3 K/uL (0.7-4.9); Basophils % 0.8 % (0-1.3); Hematocrit 40.4 % (36.0-45.0); Lymphocytes % 23.7 % (15.3-44.8); MPV 7.3 fL (7.6-11.3); RBC Red Blood Cell Count 4.53 M/uL (3.86-4.86)
[2021-03-04 06:31] LABS: Albumin 3.7 g/dL (3.4-5.0); Magnesium 1.7 mg/dL (1.8-2.4); Potassium 3.6 mmol/L (3.5-5.1); Prealbumin 16.8 mg/dL (20-40)
[2021-03-04] MEDS: LEVOTHYROXINE SOD 0.1 MG TAB PO SCH (06:33)
[2021-03-04] MEDS: carvediloL 6.25 MG TAB PO SCH ×2 (06:34→19:08)
[2021-03-04] MEDS: TRAMADOL 37.5mg/APAP 325mg PER TAB PO PRN ×3 (06:34→19:06)
[2021-03-04] MEDS: BUMETANIDE 1 MG TABLET PO SCH (06:34)
[2021-03-04] MEDS: LIDOCAINE 4% PATCH TOP SCH (06:35)
[2021-03-04] MEDS: TRELEGY ELLIPTA IH SCH (06:35)
[2021-03-04] MEDS ORDERED: cloNIDine HCL 0.1 MG TAB PO PRN (07:52)
[2021-03-04] MEDS: GLUCERNA SHAKE 237 ML CAN PO SCH ×2 (08:00→19:07)
[2021-03-04] MEDS: cloNIDine HCL 0.1 MG TAB PO SCH (08:02)
[2021-03-04] MEDS: INSULIN -REGULAR HUMAN 50 UNIT/0.5 ML ML SQ SCH ×4 (08:22→19:15)
[2021-03-04] MEDS: FERROUS SULFATE 325 MG TAB PO SCH ×2 (08:23→19:07)
[2021-03-04] MEDS: METFORMIN HCL 500 MG TAB PO SCH ×2 (08:23→16:46)
[2021-03-04] MEDS: CRANBERRY FRUIT EXTRACT 200 MG CAP PO SCH ×2 (08:23→19:05)
[2021-03-04] MEDS: CLOPIDOGREL 75 MG TABLET PO SCH (08:24)
[2021-03-04] MEDS: GABAPENTIN 300 MG CAP PO SCH ×2 (08:24→19:06)
[2021-03-04] MEDS: ASPIRIN 81 MG CHEWABLE TABLET PO SCH (08:24)
[2021-03-04] MEDS: CITALOPRAM 10 MG TABLET PO SCH (08:24)
[2021-03-04] MEDS: POTASSIUM CL SA 10 MEQ TAB PO SCH ×2 (08:24→19:07)
[2021-03-04] MEDS: GALANTAMINE 4 MG TAB PO SCH (08:24)
[2021-03-04] MEDS: DOCUSATE NA/SENNA CONC 1 TAB PO PRN (19:05)
[2021-03-04] MEDS: MELATONIN 3 MG TABLET PO PRN (19:06)
[2021-03-04] MEDS: PRIMIDONE 50 MG TAB PO SCH (19:06)
[2021-03-04] MEDS: CYCLOBENZAPRINE 10 MG TAB PO SCH (19:06)
[2021-03-05] MEDS: TRAMADOL 37.5mg/APAP 325mg PER TAB PO PRN ×2 (01:50→07:24)
[2021-03-05] MEDS: LEVOTHYROXINE SOD 0.1 MG TAB PO SCH (06:50)
[2021-03-05] MEDS: LIDOCAINE 4% PATCH TOP SCH (07:21)
[2021-03-05] MEDS: carvediloL 6.25 MG TAB PO SCH ×2 (07:21→20:29)
[2021-03-05] MEDS: ONDANSETRON 4 MG (ODT) TAB PO PRN (07:24)
[2021-03-05] MEDS: GLUCERNA SHAKE 237 ML CAN PO SCH ×2 (08:00→20:29)
[2021-03-05] MEDS: cloNIDine HCL 0.1 MG TAB PO SCH (08:00)
[2021-03-05] MEDS: METFORMIN HCL 500 MG TAB PO SCH ×2 (08:11→16:56)
[2021-03-05] MEDS: GALANTAMINE 4 MG TAB PO SCH (08:11)
[2021-03-05] MEDS: ASPIRIN 81 MG CHEWABLE TABLET PO SCH (08:11)
[2021-03-05] MEDS: POTASSIUM CL SA 10 MEQ TAB PO SCH ×2 (08:12→20:29)
[2021-03-05] MEDS: CITALOPRAM 10 MG TABLET PO SCH (08:12)
[2021-03-05] MEDS: CLOPIDOGREL 75 MG TABLET PO SCH (08:12)
[2021-03-05] MEDS: FERROUS SULFATE 325 MG TAB PO SCH ×2 (08:12→20:29)
[2021-03-05] MEDS: CRANBERRY FRUIT EXTRACT 200 MG CAP PO SCH ×2 (08:12→20:29)
[2021-03-05] MEDS: TRELEGY ELLIPTA IH SCH (08:13)
[2021-03-05] MEDS: GABAPENTIN 300 MG CAP PO SCH ×2 (08:13→20:30)
[2021-03-05] MEDS: INSULIN -REGULAR HUMAN 50 UNIT/0.5 ML ML SQ SCH ×4 (08:14→20:32)
[2021-03-05] MEDS: MEGESTROL 400 MG/10 ML UCUP PO SCH (08:15)
--- NOTE | 2021-03-05 09:48 | P.RH.PN ---
Estimated Length of Stay: 17 Expected Discharge Date: 03/11/21 Discharge Disposition Plan: Home Family Support: Yes Alf Goal: Mobility, Transfers, Self Care Vital Signs: Last Vital Signs Temp 97.2 F 03/05/21 07:02 Pulse 72 03/05/21 07:21 Resp 18 03/05/21 08:24 BP 181/95 H 03/05/21 07:21 Pulse Ox 93 03/05/21 08:24 Laboratory: Laboratory Last Values WBC 9.50 K/uL (4.3-10.9) 03/04/21 06:00 RBC 4.53 M/uL (3.86-4.86) 03/04/21 06:00 Hgb 14.0 g/dL (12.0-15.0) 03/04/21 06:00 Hct 40.4 % (36.0-45.0) 03/04/21 06:00 MCV 89.4 fL (80-100) 03/04/21 06:00 MCH 30.8 pg (27.0-35.0) 03/04/21 06:00 MCHC 34.5 g/dL (32.0-36.0) 03/04/21 06:00 RDW 14.0 % (12.1-15.2) 03/04/21 06:00 Plt Count 360 K/uL (152-406) D 03/04/21 06:00 MPV 7.3 fL (7.6-11.3) L 03/04/21 06:00 Neutrophils % 68.7 % (41.7-73.7) 03/04/21 06:00 Lymphocytes % 23.7 % (15.3-44.8) 03/04/21 06:00 Monocytes % 5.0 % (3.3-12.3) 03/04/21 06:00 Eosinophils % 1.8 % (0-4.4) 03/04/21 06:00 Basophils % 0.8 % (0-1.3) 03/04/21 06:00 Absolute Neutrophils 6.5 K/uL (1.8-8.0) 03/04/21 06:00 Absolute Lymphocytes 2.3 K/uL (0.7-4.9) 03/04/21 06:00 Absolute Monocytes 0.5 K/uL (0.1-1.3) 03/04/21 06:00 Absolute Eosinophils 0.2 K/uL (0-0.5) 03/04/21 06:00 Absolute Basophils 0.1 K/uL (0-0.5) 03/04/21 06:00 Sodium 135 mmol/L (136-145) L 03/04/21 06:00 Potassium 3.6 mmol/L (3.5-5.1) 03/04/21 06:00 Chloride 98 mmol/L (98-107) 03/04/21 06:00 Carbon Dioxide 29 mmol/L (21-32) 03/04/21 06:00 BUN 7 mg/dL (7-18) 03/04/21 06:00 Creatinine 0.80 mg/dL (0.55-1.3) 03/04/21 06:00 Estimated GFR 70 mL/min (=/>90) L 03/04/21 06:00 Glucose 216 mg/dL (74-106) H 03/04/21 06:00 POC Glucose 201 mg/dL (65-120) H 03/05/21 06:56 Calcium 9.4 mg/dL (8.5-10.1) 03/04/21 06:00 Magnesium 1.7 mg/dL (1.8-2.4) L 03/04/21 06:00 Albumin 3.7 g/dL (3.4-5.0) 03/04/21 06:00 Prealbumin 16.8 mg/dL (20-40) L 03/04/21 06:00 Urine Color Dk yellow (Yellow) 02/23/21 20: Urine Appearance Clear (Clear) 02/23/21 20: Urine pH 6.0 (5.0-7.0) 02/23/21 20: Ur Specific Tracy >=1.030 (1.005-1.030) 02/23/21 20: Glucose (UA)(Auto) 3+ (Negative) H 02/23/21 20: Urine Ketones Trace (Negative) H 02/23/21 20: Urine Blood Negative (Negative) 02/23/21 20: Urine Nitrite Negative (Negative) 02/23/21 20: Urine Bilirubin Negative (Negative) 02/23/21 20: Urine Urobilinogen 0.2 mg/dL (0.2-1.0) 02/23/21 20:26 Ur Leukocyte Esterase Negative (Negative) 02/23/21 20:26 Urine RBC None seen /HPF (NONE SEEN) 02/23/21 20:26 Urine WBC <5 /HPF (<5) 02/23/21 20:26 Ur Squamous Epith Cells 10-20 /HPF (NONE SEEN) H 02/23/21 20:26 Urine Bacteria <20 /HPF (<20) 02/23/21 20:26 Urine Mucus Mod /HPF (NONE SEEN) 02/23/21 20:26 Urine Culture Reflexed Not needed 02/23/21 20:26 Urine Total Protein Trace (Negative) H 02/23/21 20:26 SARS-CoV-2 RNA (RT-PCR) Negative (NEGATIVE) 03/03/21 09:10 Weight: 202 lb Wound Present: No Closed Surgical Incision Present: No Negative Pressure Wound Therapy Present: No Physician Update: Labs reviewed and are stable. She is slow to get going but is a contact guard to standby assistance. Walking 150' with standby assistance and a rolling walker. Independent with grooming, set up with upper body dressing and standby assistance with showers. Functional Improvement: Patient is showing good overall progress w/ transfers and gait tx. when pain in decreased. Patient presents w/ good attitude toward therapy, and presents w/ good work ethic. Summary: Patient's care plan and bean picker goals have been reviewed and revised as necessary. Please see the Rehabilitation Signature page for all necessary signatures.
[2021-03-05] MEDS ORDERED: GLUCAGON 1 MG/VIAL IM PRN (11:57)
[2021-03-05] MEDS ORDERED: D50W 25 GM/50 ML SYRINGE IV PRN (11:57)
[2021-03-05] MEDS: HYDROCODONE/APAP 5/325 MG TAB PO PRN (12:13)
[2021-03-05] MEDS: INSULIN LISPRO 100 UNIT/1 ML SQ SCH ×2 (12:23→16:57)
[2021-03-05] MEDS: MAGNESIUM OXIDE 400 MG TAB PO SCH (20:30)
[2021-03-05] MEDS: lisinopriL 5 MG TAB PO SCH (20:30)
[2021-03-05] MEDS: CYCLOBENZAPRINE 10 MG TAB PO SCH (20:31)
[2021-03-05] MEDS: PRIMIDONE 50 MG TAB PO SCH (20:32)
[2021-03-05] MEDS: MELATONIN 3 MG TABLET PO PRN (20:33)
[2021-03-05] MEDS: DOCUSATE NA/SENNA CONC 1 TAB PO PRN (20:34)
[2021-03-06] MEDS: HYDROCODONE/APAP 5/325 MG TAB PO PRN ×2 (05:24→10:16)
[2021-03-06 05:42] VITALS: BMI 29.4
[2021-03-06] MEDS: LEVOTHYROXINE SOD 0.1 MG TAB PO SCH (06:32)
[2021-03-06] MEDS: INSULIN -REGULAR HUMAN 50 UNIT/0.5 ML ML SQ SCH ×4 (07:00→21:00)
[2021-03-06] MEDS: GLUCERNA SHAKE 237 ML CAN PO SCH ×2 (08:00→20:00)
[2021-03-06] MEDS: MEGESTROL 400 MG/10 ML UCUP PO SCH (08:29)
[2021-03-06] MEDS: CLOPIDOGREL 75 MG TABLET PO SCH (08:29)
[2021-03-06] MEDS: CRANBERRY FRUIT EXTRACT 200 MG CAP PO SCH ×2 (08:30→20:56)
[2021-03-06] MEDS: FERROUS SULFATE 325 MG TAB PO SCH ×2 (08:30→21:04)
[2021-03-06] MEDS: ASPIRIN 81 MG CHEWABLE TABLET PO SCH (08:30)
[2021-03-06] MEDS: POTASSIUM CL SA 10 MEQ TAB PO SCH ×2 (08:30→21:05)
[2021-03-06] MEDS: CITALOPRAM 10 MG TABLET PO SCH (08:31)
[2021-03-06] MEDS: METFORMIN HCL 500 MG TAB PO SCH ×2 (08:32→17:18)
[2021-03-06] MEDS: carvediloL 6.25 MG TAB PO SCH ×2 (08:32→20:58)
[2021-03-06] MEDS: lisinopriL 5 MG TAB PO SCH ×2 (08:33→21:01)
[2021-03-06] MEDS: ONDANSETRON 4 MG (ODT) TAB PO PRN (08:33)
[2021-03-06] MEDS: GALANTAMINE 4 MG TAB PO SCH (08:33)
[2021-03-06] MEDS: GABAPENTIN 300 MG CAP PO SCH ×2 (08:33→20:59)
[2021-03-06] MEDS: INSULIN LISPRO 100 UNIT/1 ML SQ SCH ×3 (08:35→17:18)
[2021-03-06] MEDS: LIDOCAINE 4% PATCH TOP SCH (08:40)
[2021-03-06] MEDS: MAGNESIUM OXIDE 400 MG TAB PO SCH ×2 (08:40→20:59)
[2021-03-06] MEDS: DOCUSATE NA 100 MG CAP PO SCH ×2 (08:40→20:38)
[2021-03-06] MEDS: TRELEGY ELLIPTA IH SCH (10:16)
[2021-03-06] MEDS: BUMETANIDE 1 MG TABLET PO SCH (10:47)
[2021-03-06] MEDS: DOCUSATE NA/SENNA CONC 1 TAB PO PRN (20:56)
[2021-03-06] MEDS: PRIMIDONE 50 MG TAB PO SCH (20:57)
[2021-03-06] MEDS: MELATONIN 3 MG TABLET PO PRN (21:03)
[2021-03-06] MEDS: CYCLOBENZAPRINE 10 MG TAB PO SCH (21:05)
[2021-03-07] MEDS: INSULIN -REGULAR HUMAN 50 UNIT/0.5 ML ML SQ SCH ×4 (07:30→19:57)
[2021-03-07] MEDS: LEVOTHYROXINE SOD 0.1 MG TAB PO SCH (07:45)
[2021-03-07] MEDS: DOCUSATE NA 100 MG CAP PO SCH (08:00)
[2021-03-07] MEDS: GLUCERNA SHAKE 237 ML CAN PO SCH ×2 (08:00→19:57)
[2021-03-07] MEDS: INSULIN LISPRO 100 UNIT/1 ML SQ SCH ×3 (08:00→17:26)
[2021-03-07 08:26] LABS: Potassium 4.2 mmol/L (3.5-5.1)
[2021-03-07] MEDS: MEGESTROL 400 MG/10 ML UCUP PO SCH (09:32)
[2021-03-07] MEDS: CRANBERRY FRUIT EXTRACT 200 MG CAP PO SCH ×2 (09:32→19:53)
[2021-03-07] MEDS: ASPIRIN 81 MG CHEWABLE TABLET PO SCH (09:34)
[2021-03-07] MEDS: GALANTAMINE 4 MG TAB PO SCH (09:34)
[2021-03-07] MEDS: GABAPENTIN 300 MG CAP PO SCH ×2 (09:34→19:54)
[2021-03-07] MEDS: CLOPIDOGREL 75 MG TABLET PO SCH (09:34)
[2021-03-07] MEDS: carvediloL 6.25 MG TAB PO SCH ×2 (09:35→19:56)
[2021-03-07] MEDS: lisinopriL 5 MG TAB PO SCH ×2 (09:36→19:56)
[2021-03-07] MEDS: POTASSIUM CL SA 10 MEQ TAB PO SCH ×2 (09:36→19:54)
[2021-03-07] MEDS: CITALOPRAM 10 MG TABLET PO SCH (09:37)
[2021-03-07] MEDS: METFORMIN HCL 500 MG TAB PO SCH ×2 (09:37→16:39)
[2021-03-07] MEDS: MAGNESIUM OXIDE 400 MG TAB PO SCH ×2 (09:37→19:57)
[2021-03-07] MEDS: LIDOCAINE 4% PATCH TOP SCH (09:38)
[2021-03-07] MEDS: FERROUS SULFATE 325 MG TAB PO SCH ×2 (09:39→19:54)
[2021-03-07] MEDS: TRELEGY ELLIPTA IH SCH (09:42)
[2021-03-07] MEDS: HYDROCODONE/APAP 5/325 MG TAB PO PRN (13:38)
[2021-03-07] MEDS: PRIMIDONE 50 MG TAB PO SCH (19:54)
[2021-03-07] MEDS: CYCLOBENZAPRINE 10 MG TAB PO SCH (19:55)
[2021-03-07] MEDS: MELATONIN 3 MG TABLET PO PRN (19:55)
[2021-03-08] MEDS: LEVOTHYROXINE SOD 0.1 MG TAB PO SCH (06:53)
[2021-03-08] MEDS: TRELEGY ELLIPTA IH SCH (06:53)
[2021-03-08] MEDS: GLUCERNA SHAKE 237 ML CAN PO SCH ×2 (08:00→19:21)
[2021-03-08] MEDS: INSULIN -REGULAR HUMAN 50 UNIT/0.5 ML ML SQ SCH ×4 (08:02→19:43)
[2021-03-08] MEDS: GALANTAMINE 4 MG TAB PO SCH (08:03)
[2021-03-08] MEDS: CITALOPRAM 10 MG TABLET PO SCH (08:03)
[2021-03-08] MEDS: carvediloL 6.25 MG TAB PO SCH (08:04)
[2021-03-08] MEDS: lisinopriL 5 MG TAB PO SCH ×2 (08:04→19:42)
[2021-03-08] MEDS: BUMETANIDE 1 MG TABLET PO SCH (08:05)
[2021-03-08] MEDS: POTASSIUM CL SA 10 MEQ TAB PO SCH ×2 (08:05→19:21)
[2021-03-08] MEDS: CLOPIDOGREL 75 MG TABLET PO SCH (08:05)
[2021-03-08] MEDS: GABAPENTIN 300 MG CAP PO SCH ×2 (08:05→19:21)
[2021-03-08] MEDS: METFORMIN HCL 500 MG TAB PO SCH ×2 (08:05→17:28)
[2021-03-08] MEDS: ASPIRIN 81 MG CHEWABLE TABLET PO SCH (08:06)
[2021-03-08] MEDS: MAGNESIUM OXIDE 400 MG TAB PO SCH ×2 (08:06→19:21)
[2021-03-08] MEDS: FERROUS SULFATE 325 MG TAB PO SCH ×2 (08:06→19:21)
[2021-03-08] MEDS: CRANBERRY FRUIT EXTRACT 200 MG CAP PO SCH ×2 (08:06→19:20)
[2021-03-08] MEDS: MEGESTROL 400 MG/10 ML UCUP PO SCH (08:07)
[2021-03-08] MEDS: HYDROCODONE/APAP 5/325 MG TAB PO PRN ×2 (08:08→12:01)
[2021-03-08] MEDS: INSULIN LISPRO 100 UNIT/1 ML SQ SCH ×3 (09:13→17:28)
[2021-03-08] MEDS: LIDOCAINE 4% PATCH TOP SCH (10:07)
[2021-03-08] MEDS: carvediloL 3.125 MG TAB PO SCH (17:27)
[2021-03-08] MEDS: PRIMIDONE 50 MG TAB PO SCH (19:20)
[2021-03-08] MEDS: TRAMADOL 37.5mg/APAP 325mg PER TAB PO PRN (19:20)
[2021-03-08] MEDS: CYCLOBENZAPRINE 10 MG TAB PO SCH (19:20)
[2021-03-08] MEDS: MELATONIN 5 MG TABLET PO PRN (19:22)
[2021-03-09] MEDS: carvediloL 3.125 MG TAB PO SCH ×2 (05:47→16:57)
[2021-03-09] MEDS: TRELEGY ELLIPTA IH SCH (06:35)
[2021-03-09] MEDS: LEVOTHYROXINE SOD 0.1 MG TAB PO SCH (06:35)
[2021-03-09] MEDS: LIDOCAINE 4% PATCH TOP SCH (06:44)
[2021-03-09] MEDS: INSULIN -REGULAR HUMAN 50 UNIT/0.5 ML ML SQ SCH ×4 (07:30→19:50)
[2021-03-09] MEDS: GLUCERNA SHAKE 237 ML CAN PO SCH ×2 (08:00→19:49)
[2021-03-09] MEDS: lisinopriL 5 MG TAB PO SCH ×2 (08:00→19:47)
[2021-03-09] MEDS: TRAMADOL 37.5mg/APAP 325mg PER TAB PO PRN ×2 (08:46→19:48)
[2021-03-09] MEDS: MEGESTROL 400 MG/10 ML UCUP PO SCH (08:47)
[2021-03-09] MEDS: INSULIN LISPRO 100 UNIT/1 ML SQ SCH ×3 (08:47→16:58)
[2021-03-09] MEDS: CITALOPRAM 10 MG TABLET PO SCH (08:48)
[2021-03-09] MEDS: CRANBERRY FRUIT EXTRACT 200 MG CAP PO SCH ×2 (08:48→19:49)
[2021-03-09] MEDS: CLOPIDOGREL 75 MG TABLET PO SCH (08:48)
[2021-03-09] MEDS: GALANTAMINE 4 MG TAB PO SCH (08:48)
[2021-03-09] MEDS: ASPIRIN 81 MG CHEWABLE TABLET PO SCH (08:49)
[2021-03-09] MEDS: METFORMIN HCL 500 MG TAB PO SCH ×2 (08:49→16:57)
[2021-03-09] MEDS: POTASSIUM CL SA 10 MEQ TAB PO SCH ×2 (08:49→19:47)
[2021-03-09] MEDS: GABAPENTIN 300 MG CAP PO SCH ×2 (08:49→19:49)
[2021-03-09] MEDS: MAGNESIUM OXIDE 400 MG TAB PO SCH ×2 (08:49→19:49)
[2021-03-09] MEDS: FERROUS SULFATE 325 MG TAB PO SCH ×2 (08:49→19:49)
[2021-03-09] MEDS: CYCLOBENZAPRINE 10 MG TAB PO SCH (19:48)
[2021-03-09] MEDS: PRIMIDONE 50 MG TAB PO SCH (19:49)
[2021-03-09] MEDS: MELATONIN 5 MG TABLET PO PRN (19:49)
[2021-03-10] MEDS: carvediloL 3.125 MG TAB PO SCH ×2 (05:26→17:14)
[2021-03-10] MEDS: INSULIN -REGULAR HUMAN 50 UNIT/0.5 ML ML SQ SCH ×4 (07:30→20:49)
[2021-03-10] MEDS: LEVOTHYROXINE SOD 0.1 MG TAB PO SCH (07:41)
[2021-03-10] MEDS: lisinopriL 5 MG TAB PO SCH ×2 (08:00→20:47)
[2021-03-10] MEDS: GLUCERNA SHAKE 237 ML CAN PO SCH ×2 (08:00→20:00)
[2021-03-10] MEDS: INSULIN LISPRO 100 UNIT/1 ML SQ SCH ×3 (08:37→17:00)
[2021-03-10] MEDS: LIDOCAINE 4% PATCH TOP SCH (08:37)
[2021-03-10] MEDS: MEGESTROL 400 MG/10 ML UCUP PO SCH (08:38)
[2021-03-10] MEDS: GABAPENTIN 300 MG CAP PO SCH ×2 (08:38→20:47)
[2021-03-10] MEDS: ASPIRIN 81 MG CHEWABLE TABLET PO SCH (08:38)
[2021-03-10] MEDS: CITALOPRAM 10 MG TABLET PO SCH (08:39)
[2021-03-10] MEDS: HYDROCODONE/APAP 5/325 MG TAB PO PRN ×3 (08:39→18:46)
[2021-03-10] MEDS: POTASSIUM CL SA 10 MEQ TAB PO SCH ×2 (08:39→20:47)
[2021-03-10] MEDS: CRANBERRY FRUIT EXTRACT 200 MG CAP PO SCH ×2 (08:40→20:47)
[2021-03-10] MEDS: METFORMIN HCL 500 MG TAB PO SCH ×2 (08:40→17:04)
[2021-03-10] MEDS: GALANTAMINE 4 MG TAB PO SCH (08:41)
[2021-03-10] MEDS: FERROUS SULFATE 325 MG TAB PO SCH ×2 (08:43→20:48)
[2021-03-10] MEDS: CLOPIDOGREL 75 MG TABLET PO SCH (08:43)
[2021-03-10] MEDS: TRELEGY ELLIPTA IH SCH (09:12)
[2021-03-10] MEDS: MAGNESIUM OXIDE 400 MG TAB PO SCH ×2 (09:13→20:48)
[2021-03-10] MEDS: BUMETANIDE 1 MG TABLET PO SCH (12:03)
[2021-03-10] MEDS: CYCLOBENZAPRINE 10 MG TAB PO SCH (20:46)
[2021-03-10] MEDS: PRIMIDONE 50 MG TAB PO SCH (20:47)
[2021-03-10] MEDS: MELATONIN 5 MG TABLET PO PRN (20:48)
[2021-03-11] MEDS: carvediloL 3.125 MG TAB PO SCH (05:27)
[2021-03-11 07:06] VITALS: BP 170/80; TEMP 96.9
[2021-03-11 07:17] LABS: Albumin 3.6 g/dL (3.4-5.0); Magnesium 2.3 mg/dL (1.8-2.4); Potassium 4.4 mmol/L (3.5-5.1); Prealbumin 26.4 mg/dL (20-40)
[2021-03-11] MEDS: LEVOTHYROXINE SOD 0.1 MG TAB PO SCH (07:30)
[2021-03-11] MEDS: INSULIN -REGULAR HUMAN 50 UNIT/0.5 ML ML SQ SCH ×2 (07:30→13:14)
[2021-03-11 07:47] LABS: Absolute Lymphocytes (CBC) 2.2 K/uL (0.7-4.9); Basophils % 0.6 % (0-1.3); Hematocrit 40.3 % (36.0-45.0); Lymphocytes % 29.6 % (15.3-44.8); MPV 7.9 fL (7.6-11.3); RBC Red Blood Cell Count 4.47 M/uL (3.86-4.86)
[2021-03-11] MEDS: GLUCERNA SHAKE 237 ML CAN PO SCH (08:00)
[2021-03-11] MEDS: INSULIN LISPRO 100 UNIT/1 ML SQ SCH ×2 (08:35→13:15)
[2021-03-11] MEDS: POTASSIUM CL SA 10 MEQ TAB PO SCH (09:33)
[2021-03-11] MEDS: CRANBERRY FRUIT EXTRACT 200 MG CAP PO SCH (09:33)
[2021-03-11] MEDS: GABAPENTIN 300 MG CAP PO SCH (09:33)
[2021-03-11] MEDS: FERROUS SULFATE 325 MG TAB PO SCH (09:34)
[2021-03-11] MEDS: CITALOPRAM 10 MG TABLET PO SCH (09:34)
[2021-03-11] MEDS: ASPIRIN 81 MG CHEWABLE TABLET PO SCH (09:34)
[2021-03-11] MEDS: HYDROCODONE/APAP 5/325 MG TAB PO PRN ×2 (09:34→14:48)
[2021-03-11] MEDS: METFORMIN HCL 500 MG TAB PO SCH (09:34)
[2021-03-11] MEDS: GALANTAMINE 4 MG TAB PO SCH (09:35)
[2021-03-11] MEDS: CLOPIDOGREL 75 MG TABLET PO SCH (09:35)
[2021-03-11] MEDS: MAGNESIUM OXIDE 400 MG TAB PO SCH (10:58)
[2021-03-11] MEDS: LIDOCAINE 4% PATCH TOP SCH (10:59)
[2021-03-11] MEDS: lisinopriL 5 MG TAB PO SCH (11:02)
[2021-03-11] MEDS: TRELEGY ELLIPTA IH SCH (11:02)
[2021-03-11] MEDS: MEGESTROL 400 MG/10 ML UCUP PO SCH (11:03)
== END 2021-03-11 15:35 | disposition home health service (06) | DRG 552 ==
LOC: 5TH 17:37
PROVIDERS: ADMIT Psychiatry & Neurology Neurology with Special Qualifications in Child Neurology; ATTEND Psychiatry & Neurology Neurology with Special Qualifications in Child Neurology
DX: S22.089A Unspecified fracture of T11-T12 vertebra, initial encounter for closed fracture (principal); S32.019A Unspecified fracture of first lumbar vertebra, initial encounter for closed fracture; M48.061 Spinal stenosis, lumbar region without neurogenic claudication; E87.6 Hypokalemia; I95.1 Orthostatic hypotension; G30.9 Alzheimer's disease, unspecified; F02.80 Dementia in other diseases classified elsewhere, unspecified severity, without behavioral disturbance, psychotic disturbance, mood disturbance, and anxiety; I25.10 Atherosclerotic heart disease of native coronary artery without angina pectoris; I11.0 Hypertensive heart disease with heart failure; I50.9 Heart failure, unspecified; E11.42 Type 2 diabetes mellitus with diabetic polyneuropathy; E03.9 Hypothyroidism, unspecified; Z20.822 Contact with and (suspected) exposure to COVID-19
CPT/HCPCS: 36415; 80048; 81001; 82040; 82947; 83735; 84134; 85025; 87077; 87086; 87088; 87186; 97110; 97116; 97162; 97530; 97542; J1815; U0003

== ENCOUNTER 2022-12-30 16:48 | Inpatient (IN) | payer OTHER ==
--- OUTSIDE RECORDS SUMMARY | 2022-12-30 22:19 | XMS REPORT | Continuity of Care Document ---
:1945 Author Organization [facility] t Address [address] [facility] [address] [place] [address] Support Name Relationship Address Phone GAIL SANTIAGO DAUGHTER [address] [place] [address] NEELAM SANDERS FAMILY [address] [place] [address] HARRIET SANTIAGO [address] [phone] [place] [address] N, G Unavailable [address] [place] [address] GAIL MONTIEL Unavailable [address] [phone] [place] [address] CHANDLER Fields MD. Primary Care Physician [address] [facility] [address] [place] [address] MD RY ARCINIEGA MD Emergency Provider [address] [facility] [place] [address] KIKI GANDARA MD Emergency Provider [address] [facility] [address] VIKRAM Fields, Attending Provider [address] [facility] [address] RASHEED LANCASTER MD Primary Care Physician [address] [place] [address] ALEM CHILDS, Attending Provider [address] [facility] [address] [place] [address] DO CLOVIS RUSSELL Emergency Provider [address] [facility] [email or web address] [address] MD KAM HUNTER BA Emergency Provider [address] [phone] [place] [address] MD CHANDLER. JOSE Primary Care Physician [address] [phone] [place] [address] MD SEAN LEWIS JR Admitting Provider [address] [phone] [place] [address] MARGARITO BARAHONA Other Provider [address] [address] MD ASHLEY Emergency Provider [address] [place] [address] MD ROCHELLE MTZ Admitting Provider [address] [place] [address] MD CLEMENTINE LEMUS Emergency Provider Unavailable Unavailable MD VINCE JEFFRIES Emergency Provider [address] [place] [address] MD ANGELITO YE Emergency Provider [address] [place] [address] MD KANDY Emergency Provider [address] [place] [address] DO RAFFI DON Emergency Provider [facility], [facility] [place] [address] NEELAM SANDERS Family Member [address] [phone] [place] [address] VINCE SANDERS Guarantor [address] [place] [address] Care Team Providers Name Role Phone JOSE ARTEAGA Primary Care Physician Unavailable [id number] Attending Clinician Unavailable Esther Drake Attending Clinician Unavailable RAFFI DON Attending Clinician Unavailable ARTURO RICHARDSON Attending Clinician Unavailable ARTURO RICHARDSON KEVIN Attending Clinician Unavailable Bony CHILDS, Arturo Castellano Attending Clinician Brooke CHILDS, Regulo Attending Clinician Kait CHILDS, Deep Loyola Attending Clinician [phone] Daniel Serna Attending Clinician BRII Attending Clinician Unavailable Greg CHILDS, Jae Chavez Attending Clinician Rasheed Jordan DO Attending Clinician Tavares CHILDS, Maggy Ro Attending Clinician [phone] SEAN LEWIS Attending Clinician Unavailable ANGELITO YE Attending Clinician Unavailable García CHILDS, Eduardo Mendoza Attending Clinician Yodit Rasheed MA Attending Clinician Unavailable Alem CHILDS, Rochelle Bhagat Attending Clinician [phone] Tawana CHILDS, Che Jonnathan Attending Clinician Lucy GONSALES, Melissa Attending Clinician Unavailable VICNE JEFFRIES Attending Clinician Unavailable AMBREEN_SONIA Attending Clinician Unavailable CLEMENTINE LEMUS Attending Clinician Unavailable ROCHELLE MTZ Attending Clinician Unavailable RY ARCINIEGA Attending Clinician Unavailable JOSE ARTEAGA Attending Clinician Unavailable Ambreen Watson DO Attending Clinician [phone] Jose Arteaga MD Attending Clinician KAM JOHNSTON Attending Clinician Unavailable CLOVIS RUSSELL Attending Clinician Unavailable Arturo Lovett MD Attending Clinician ESTHER DRAKE Attending Clinician Unavailable ITA SMALLS Attending Clinician Unavailable FABIO SAVAGE Attending Clinician Unavailable KIKI GANDARA Attending Clinician Unavailable Rasheed Lancaster Attending Clinician Unavailable JOHN YORK Attending Clinician Unavailable NATA LYONS Attending Clinician Unavailable KOFI LUTHER Attending Clinician Unavailable SIDRA HITCHCOCK Attending Clinician Unavailable RASHEED RODRIGUEZ Attending Clinician Unavailable LAUREN MASCORRO Attending Clinician Unavailable ALYSHA RAPP Attending Clinician Unavailable NEREIDA GOLD Attending Clinician Unavailable SHAWANDA ADAM Attending Clinician Unavailable LIAT JOEL Attending Clinician Unavailable JOSSIE ANDERSEN Attending Clinician Unavailable [id number] Admitting Clinician Unavailable Jose Arteaga Admitting Clinician Unavailable JOSE ARTEAGA Admitting Clinician Unavailable ARTURO RICHARDSON KEVIN Admitting Clinician Unavailable DANIEL SERNA Admitting Clinician Unavailable MD REGULO COX Admitting Clinician Unavailable BRII Admitting Clinician Unavailable RASHEED JORDAN Admitting Clinician Unavailable SEAN LEWIS Admitting Clinician Unavailable CHE GALICIA Admitting Clinician Unavailable MARJAN Admitting Clinician Unavailable ROCHELLE MTZ Admitting Clinician Unavailable FABIO SAVAGE Admitting Clinician Unavailable Payers Payer Name Policy Type Policy Number Effective Date Expiration Date S tanmay [facility] [id number] [place]ICARE B-[place]: [id number] 2012 Verified Identity Pass 00:00:00 Problems Condition Condition Condition Status Onset Resolution Last Treating Co mments Source Name Details Category Date Date Treatment Clinician Date Lumbar Lumbar Disease Active [facility]i burst burst 3-30 st fracture fracture 00:00: Hospit a 00 l Closed Closed Disease Active [facility] burst burst 3-28 st fracture fracture 00:00: Hospit a of lumbar of lumbar 00 l vertebra, vertebra, initial initial encounter encounter COVID-19 COVID-19 Disease Active Metho di virus virus 9-06 st detected detected 00:00: Hospit a 00 l Generalize Generalize Disease Active M ethodi d weakness d weakness 9 st 00:00: Hospita 00 l 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 7-29 st s s 00:00: Hospita 00 l Weakness Weakness Disease Active Metho di 4-12 st 00:00: Hospita 00 l Sepsis Sepsis Disease Active Methodi secondary secondary 6-02 st to UTI to UTI 00:00: Hospita 00 l Acute Acute Disease Recurre [facility] congestive congestive nce 9-17 Iza kes heart heart 00:00: Medical failure, failure, 00 Center unspecifie unspecifie d heart d heart failure failure type type General General Disease Active Methodi weakness weakness 1-08 st 00:00: Hospita 00 l Pneumonia Pneumonia Disease Active Met hodi 1-03 st 00:00: Hospita 00 l Closed Closed Disease Active Overview: Method i displaced displaced 09-06 Formattin s t midcervica midcervica 00:00: g of this Hospita l fracture l fracture 00 note l of right of right might be femur femur different from the original. 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 Hospita l Right Right 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 l Allergies, Adverse Reactions, Alerts Allergy Allergy Status Severity Reaction(s) Onset Inactive Treating Comm ents Source Name Type Date Date Clinician NKA Allergy Active [facility] 11-25 08:36: 30 NKA Allergy Active [facility] 11-25 08:36: 30 No Known DA Active [facility] Allergie 04-15 [place] s 00:00: [address] NO KNOWN Allergy [facility] Family History Family Member Diagnosis Comments Start Date Stop Date Source Natural father Parkinsonism [facility] father Diabetes [facility] Natural father Heart attack [facility] father Heart disease [facility] Natural father Hy[facility] Natural brother Alzheimer's disease [facility] mother Alzheimer's disease [facility] mother Diabetes [facility] Natural mother Heart disease [facility] Natural mother Hypertension [facility] Social History Social Habit Start Date Stop Date Quantity Comments Source History SDOH [facility] Alcohol Std Drinks Medica l Center History SDOH [facility] Alcohol Binge Medical Brenda ter Gender identity [facility] Sexual orientation [facility] History SDOH [facility] Alcohol Comment Medical C enter History of Social 2022-11-02 2022-11-[address] function 00:00:00 00:00:00 Hospital Alcohol intake 2022-11-01 2022-11-01 Current Alevism 00:00:00 00:00:00 non-drinker of Hospital alcohol (finding) Tobacco use and 2022-04-08 2022-04-08 Smokeless Alevism exposure 00:00:00 00:00:00 tobacco non-user Hospital History [facility] 2020-04-23 2020-04-23 1 EFRAÍN Foley Alcohol Frequency 00:00:00 00:00:00 Medical Center Sex Ass[birth year] At [birth year] [facility] 00:00:00 00:00:00 Hospital Smoking Status Start Date Stop Date Source Never smoked tobacco [facility]spital Medications Ordered Filled Start Stop Current Ordering Indication Dosage Frequency Signature Comments Components Source Medication Medication Date Date Medication? Clinician (SIG) Name Name polyethylen 2022- No 17g QD Take 17 g Methodi e glycol 11-[address] (MIRALAX) 00:00: 04:59 daily for Ho spita 17 gram 00 :00 30 days. l packet polyethylen 2022- No 17g QD Take 17 g Methodi e glycol 11-[address] (MIRALAX) 00:00: 04:59 daily for Ho spita 17 gram 00 :00 30 days. l packet polyethylen 2022- No 17g QD Take 17 g Methodi e glycol 11-04- by mouth st (MIRALAX) 00:00: 04:59 daily for Ho spita 17 gram 00 :00 30 days. l packet BUMETanide Yes 1mg Q.[id number] Take 1 Methodi (BUMEX) 1 3-30 [id number] tablet (1 st MG tablet 17:40: 3W mg total) Hos zachariah 17 by mouth 3 l (three) times a week. Every - -Mon. gabapentin 2022-0 Yes 100mg QD Take 1 Meth troy (NEURONTIN) 3-[address] 100 mg 17:40: (100 mg Hospita capsule 17 total) by l mouth nightly. fluticasone 2022-0 Yes QD Inhale 1 Me thodi -umeclidin- 3-[address] vilanter 17:40: s once Hospita (TRELEGY 17 daily. l ELLIPTA) 100-62.5-25 mcg blister with device powder for inhalation insulin 2023-0 Yes 20U QD Inject 0.2 Meth troy GLARGINE 3-30 mL (20 st (LANTUS) 17:40: Units Hospita 100 unit/mL 17 total) l injection under the (vial) skin daily. metFORMIN 0 Yes 1000mg Q.5D Take 1 Meth troy (GLUCOPHAGE 3-[address] ) 1,000 mg 17:40: (1,000 mg Ho spita tablet 17 total) by l mouth 2 (two) times a day with meals. omega-3 2022-0 Yes 4{capsu QD Take 4 Metho di fatty acids 3-30 le} capsules st 1,000 mg 17:40: by mouth Hospi ta capsule 17 daily. l aspirin 0 Yes 81mg QD Take 1 Methodi (ECOTRIN) 3-30 tablet (81 st 81 MG 17:40: mg total) Hospita enteric 17 by mouth l coated nightly. tablet multivitami 0 Yes 1{tbl} QD Take 1 Me thodi n with 3-[address] minerals 17:40: mouth Hospita tablet 17 daily. l docusate 0 Yes 100mg Q.[id number] Take 1 [facility]i sodium 3-[id number] (COLACE) 17:40: 3D (100 mg Hospit a 100 MG 17 total) by l capsule mouth 3 (three) times a day as needed. levothyroxi 0 Yes 200ug QD Take 1 Met hodi ne 3-[address] (SYNTHROID) 17:40: (200 mcg Ho spita 200 mcg 17 total) by l tablet mouth every morning. BUMETanide 0 Yes 1mg Q.[id number] Take 1 Methodi (BUMEX) 1 3-30 [id number] tablet (1 st MG tablet 17:40: 3W mg total) Hos zachariah 17 by mouth 3 l (three) times a week. Every - -Mon. gabapentin 0 Yes 100mg QD Take 1 Meth troy (NEURONTIN) 3-[address] 100 mg 17:40: (100 mg Hospita capsule 17 total) by l mouth nightly. fluticasone 2022-0 Yes QD Inhale 1 Me thodi -umeclidin- 3-[address] vilanter 17:40: s once Hospita (TRELEGY 17 daily. l ELLIPTA) 100-62.5-25 mcg blister with device powder for inhalation insulin 0 Yes 20U QD Inject 0.2 Meth troy GLARGINE 3-30 mL (20 st (LANTUS) 17:40: Units Hospita 100 unit/mL 17 total) l injection under the (vial) skin daily. metFORMIN 2022-0 Yes 1000mg Q.5D Take 1 Meth troy (GLUCOPHAGE 3-[address] ) 1,000 mg 17:40: (1,000 mg Ho spita tablet 17 total) by l mouth 2 (two) times a day with meals. omega-3 2022-0 Yes 4{capsu QD Take 4 Metho di fatty acids 3-30 le} capsules st 1,000 mg 17:40: by mouth Hospi ta capsule 17 daily. l aspirin 2022-0 Yes 81mg QD Take 1 Methodi (ECOTRIN) 3-30 tablet (81 st 81 MG 17:40: mg total) Hospita enteric 17 by mouth l coated nightly. tablet multivitami 2022-0 Yes 1{tbl} QD Take 1 Me thodi n with 3-[address] minerals 17:40: mouth Hospita tablet 17 daily. l docusate 2022-0 Yes 100mg Q.[id number] Take 1 [facility]i sodium 3-[id number] (COLACE) 17:40: 3D (100 mg Hospit a 100 MG 17 total) by l capsule mouth 3 (three) times a day as needed. levothyroxi 2022-0 Yes 200ug QD Take 1 Met hodi ne 3-[address] (SYNTHROID) 17:40: (200 mcg Ho spita 200 mcg 17 total) by l tablet mouth every morning. aspirin 2022-0 Yes 81mg QD Take 1 Methodi (ECOTRIN) 3-30 tablet (81 st 81 MG 17:40: mg total) Hospita enteric 17 by mouth l coated nightly. tablet multivitami 2022-0 Yes 1{tbl} QD Take 1 Me thodi n with 3-[address] minerals 17:40: mouth Hospita tablet 17 daily. l docusate 2022-0 Yes 100mg Q.[id number] Take 1 [facility]i sodium 3-[id number] (COLACE) 17:40: 3D (100 mg Hospit a 100 MG 17 total) by l capsule mouth 3 (three) times a day as needed. levothyroxi 0 Yes 200ug QD Take 1 Met hodi ne 3-[address] (SYNTHROID) 17:40: (200 mcg Ho spita 200 mcg 17 total) by l tablet mouth every morning. BUMETanide 0 Yes 1mg Q.[id number] Take 1 Methodi (BUMEX) 1 3-30 [id number] tablet (1 st MG tablet 17:40: 3W mg total) Hos zachariah 17 by mouth 3 l (three) times a week. Every - -Mon. gabapentin 0 Yes 100mg QD Take 1 Meth troy (NEURONTIN) 3-[address] 100 mg 17:40: (100 mg Hospita capsule 17 total) by l mouth nightly. fluticasone 0 Yes QD Inhale 1 Me thodi -umeclidin- 3-[address] vilanter 17:40: s once Hospita (TRELEGY 17 daily. l ELLIPTA) 100-62.5-25 mcg blister with device powder for inhalation insulin 0 Yes 20U QD Inject 0.2 Meth troy GLARGINE 3-30 mL (20 st (LANTUS) 17:40: Units Hospita 100 unit/mL 17 total) l injection under the (vial) skin daily. metFORMIN 0 Yes 1000mg Q.5D Take 1 Meth tryo (GLUCOPHAGE 3-[address] ) 1,000 mg 17:40: (1,000 mg Ho spita tablet 17 total) by l mouth 2 (two) times a day with meals. omega-3 0 Yes 4{capsu QD Take 4 Metho di fatty acids 3-30 le} capsules st 1,000 mg 17:40: by mouth Hospi ta capsule 17 daily. l oxyCODone-a 2022-0 Yes 1{tbl} Q4H Take 1 M ethodi cetaminophe 3-[address] n 00:00: mouth Hospita (PERCOCET) 00 every 4 l 5-325 mg (four) per tablet hours as needed for severe pain .acute pain. Max Daily Amount: 6 tablets oxyCODone-a 2022- Yes [id number] 1{tbl} Q4H Take 1 M ethodi cetaminophe 3-[address] n 00:00: mouth Hospita (PERCOCET) 00 every 4 l 5-325 mg (four) per tablet hours as needed for severe pain .acute pain. Max Daily Amount: 6 tablets oxyCODone-a 2022- Yes [id number] 1{tbl} Q4H Take 1 M ethodi cetaminophe 3-[address] n 00:00: mouth Hospita (PERCOCET) 00 every 4 l 5-325 mg (four) per tablet hours as needed for severe pain .acute pain. Max Daily Amount: 6 tablets lidocaine 4 2022-2022- No 1{patch Q24H Place 1 Methodi % 3-30 04-30 } patch on st 00:00: 04:59 the skin Hospita 00 :00 daily for l 30 days. Remove & Discard patch within 12 hours or as directed by lidocaine 4 2022-2022- No 1{patch Q24H Place 1 Methodi % 3-30 04-30 } patch on st 00:00: 04:59 the skin Hospita 00 :00 daily for l 30 days. Remove & Discard patch within 12 hours or as directed by lidocaine 4 2022- No 1{patch Q24H Place 1 Methodi % 3-30 04-30 } patch on st 00:00: 04:59 the skin Hospita 00 :00 daily for l 30 days. Remove & Discard patch within 12 hours or as directed by ergocalcife 2022-2022- No [id number] Q7D Take 1 M ethodi rol 3-28 - capsule st (VITAMIN 23:17: 00:00 (50,000 Hospi ta D2) 50,000 08 :00 Units l unit total) by capsule mouth once a week. ergocalcife 2022-0 2022- No [id number] Q7D Take 1 M ethodi rol 3-28 - capsule st (VITAMIN 23:17: 00:00 (50,000 Hospi ta D2) 50,000 08 :00 Units l unit total) by capsule mouth once a week. ergocalcife 2022-0 2022- No [id number] Q7D Take 1 M ethodi rol 3-28 03-[address] (VITAMIN 23:17: 00:00 (50,000 Hospi ta D2) 50,000 08 :00 Units l unit total) by capsule mouth once a week. ergocalcife 0 Yes [id number] Q7D Take 1 Me thodi rol 9-[address] (VITAMIN 18:45: (50,000 Hospit a D2) 50,000 07 Units l unit total) by capsule mouth once a week. fluticasone 0 Yes QD Inhale 1 Me thodi -umeclidin- 04-[address] vilanter 18:45: s once Hospita (TRELEGY 07 daily. l ELLIPTA) 100-62.5-25 mcg blister with device powder for inhalation insulin Yes 20U QD Inject 20 Metho di GLARGINE 04-[address] (LANTUS) 18:45: under the Hosp eriberto 100 unit/mL 07 skin l injection daily. (vial) metFORMIN Yes 1000mg Q.5D Take 1 Meth troy (GLUCOPHAGE 04-[address] ) 1,000 mg 18:45: (1,000 mg Ho spita tablet 07 total) by l mouth 2 (two) times a day with meals. omega-3 Yes 4{capsu QD Take 4 Metho di fatty acids 04-13 le} capsules st 1,000 mg 18:45: by mouth Hospi ta capsule 07 daily. l pantoprazol 0 2021- No 40mg Q.5D Take 2 Met hodi e 04-[address] (PROTONIX) 18:45: 00:00 (40 mg Hosp eriberto 20 MG EC 07 :00 total) by l tablet mouth 2 (two) times a day. levoFLOXaci 2021-0 2021- No 500mg QD Take 1 Me thodi n 04-[address] (LEVAQUIN) 18:45: 00:00 (500 mg Hos zachariah 500 MG 07 :00 total) by l tablet mouth daily. magnesium 2021-0 2021- No 400mg QD Take 1 Meth troy oxide 04-[address] (MAG-OX) 18:45: 00:00 (400 mg Hospi ta 400 mg 07 :00 total) by l (241.3 mg mouth magnesium) daily. tablet metroNIDAZO 2022-0 2022- No 500mg Q.5D Take 1 Me dhaval LE (FLAGYL) 04-[address] 500 MG 18:45: 00:00 (500 mg Hospita tablet 07 :00 total) by l mouth 2 (two) times a day. pantoprazol 2022-0 2022- No 40mg Q.5D Take 2 Met papitoi e 04-[address] (PROTONIX) 18:45: 00:00 (40 mg Hosp eriberto 20 MG EC 07 :00 total) by l tablet mouth 2 (two) times a day. levoFLOXaci 2-0 2022- No 500mg QD Take 1 Me puentes n 04-[address] (LEVAQUIN) 18:45: 00:00 (500 mg Hos zachariah 500 MG 07 :00 total) by l tablet mouth daily. magnesium 2-0 2- No 400mg QD Take 1 Meth troy oxide 04-[address] (MAG-OX) 18:45: 00:00 (400 mg Hospi ta 400 mg 07 :00 total) by l (241.3 mg mouth magnesium) daily. tablet metroNIDAZO 2-0 2- No 500mg Q.5D Take 1 Me dhaval BENSON (FLAGYL) 04-[address] 500 MG 18:45: 00:00 (500 mg Hospita tablet 07 :00 total) by l mouth 2 (two) times a day. pantoprazol 2-0 2022- No 40mg Q.5D Take 2 Met papitoi e 04-[address] (PROTONIX) 18:45: 00:00 (40 mg Hosp eriberto 20 MG EC 07 :00 total) by l tablet mouth 2 (two) times a day. levoFLOXaci 2022-0 2022- No 500mg QD Take 1 Me lauraodi n 04-[address] (LEVAQUIN) 18:45: 00:00 (500 mg Hos zachariah 500 MG 07 :00 total) by l tablet mouth daily. magnesium 2022-0 2022- No 400mg QD Take 1 Meth troy oxide 04-[address] (MAG-OX) 18:45: 00:00 (400 mg Hospi ta 400 mg 07 :00 total) by l (241.3 mg mouth magnesium) daily. tablet metroNIDAZO 2021-0 2- No 500mg Q.5D Take 1 Me dhaval LE (FLAGYL) 04-[address] 500 MG 18:45: 00:00 (500 mg Hospita tablet 07 :00 total) by l mouth 2 (two) times a day. pantoprazol 2021-0 2022- No 40mg Q.5D Take 2 Met hodi e 04-[address] (PROTONIX) 18:45: 00:00 (40 mg Hosp eriberto 20 MG EC 07 :00 total) by l tablet mouth 2 (two) times a day. levoFLOXaci 2021-2021- No 500mg QD Take 1 Me dhaval n 04-[address] (LEVAQUIN) 18:45: 00:00 (500 mg Hos zachariah 500 MG 07 :00 total) by l tablet mouth daily. magnesium 2021-2021- No 400mg QD Take 1 Meth troy oxide 04-[address] (MAG-OX) 18:45: 00:00 (400 mg Hospi ta 400 mg 07 :00 total) by l (241.3 mg mouth magnesium) daily. tablet metroNIDAZO 2021-0 2021- No 500mg Q.5D Take 1 Me puentes LE (FLAGYL) 04-[address] 500 MG 18:45: 00:00 (500 mg Hospita tablet 07 :00 total) by l mouth 2 (two) times a day. pantoprazol 2021-0 2- No 40mg QD Take 1 Met hodi e 04-13 tablet (40 st (PROTONIX) 00:00: 04:59 mg total) H ospita 40 MG EC 00 :00 by mouth l tablet daily for 30 days. pantoprazol 2021-0 2022- No 40mg QD Take 1 Met hodi e 04-13 tablet (40 st (PROTONIX) 00:00: 04:59 mg total) H ospita 40 MG EC 00 :00 by mouth l tablet daily for 30 days. pantoprazol 2021-0 2022- No 40mg QD Take 1 Met hodi e 04-13 tablet (40 st (PROTONIX) 00:00: 04:59 mg total) H ospita 40 MG EC 00 :00 by mouth l tablet daily for 30 days. pantoprazol 2021- No 40mg QD Take 1 Met hodi e 04-13 tablet (40 st (PROTONIX) 00:00: 04:59 mg total) H ospita 40 MG EC 00 :00 by mouth l tablet daily for 30 days. metoprolol 2021- No 25mg Q.[id number] Take 1 Methodi tartrate 04-12 [id number] tablet (25 st (LOPRESSOR) 18:45: 00:00 3D mg total) Hospita 25 mg 57 :00 by mouth 3 l tablet (three) times a day. metoprolol 2021- No 25mg Q.[id number] Take 1 Methodi tartrate 04-12 [id number] tablet (25 st (LOPRESSOR) 18:45: 00:00 3D mg total) Hospita 25 mg 57 :00 by mouth 3 l tablet (three) times a day. metoprolol 2021- No 25mg Q.[id number] Take 1 Methodi tartrate 04-12 [id number] tablet (25 st (LOPRESSOR) 18:45: 00:00 3D mg total) Hospita 25 mg 57 :00 by mouth 3 l tablet (three) times a day. metoprolol 2021- No 25mg Q.[id number] Take 1 Methodi tartrate 04-12 [id number] tablet (25 st (LOPRESSOR) 18:45: 00:00 3D mg total) Hospita 25 mg 57 :00 by mouth 3 l tablet (three) times a day. aspirin Yes 81mg QD Take 81 mg Meth troy (ECOTRIN) 04-[address] 81 MG 18:45: nightly. Hospita enteric 53 l coated tablet multivitami Yes 1{tbl} QD Take 1 Me thodi n with 04-[address] minerals 18:45: mouth Hospita tablet 53 daily. l docusate Yes 100mg Q.[id number] Take 1 Methodi sodium 9-[id number] (COLACE) 18:45: 3D (100 mg Hospit a 100 MG 53 total) by l capsule mouth 3 (three) times a day as needed. levothyroxi 0 Yes 200ug QD Take 200 M ethodi ne 9-[address] (SYNTHROID) 18:45: mouth Hospi ta 200 mcg 53 every l tablet morning. BUMETanide 0 Yes 1mg QD Take 1 Metho di (BUMEX) 1 9-06 tablet (1 st MG tablet 18:45: mg total) Hos zachariah 53 by mouth l daily. Every - -Mon. gabapentin 0 Yes 100mg QD Take 100 Me thodi (NEURONTIN) 9-[address] 100 mg 18:45: mouth Hospita capsule 53 nightly. l metoprolol Yes 12.5mg Q.5D Take 0.5 M ethodi tartrate 9-[address] (LOPRESSOR) 00:00: (12.5 mg Ho spita 25 mg 00 total) by l tablet mouth 2 (two) times a day. metoprolol Yes 12.5mg Q.5D Take 0.5 M ethodi tartrate 9-[address] (LOPRESSOR) 00:00: (12.5 mg Ho spita 25 mg 00 total) by l tablet mouth 2 (two) times a day. metoprolol Yes 12.5mg Q.5D Take 0.5 M ethodi tartrate 9-[address] (LOPRESSOR) 00:00: (12.5 mg Ho spita 25 mg 00 total) by l tablet mouth 2 (two) times a day. metoprolol 0 Yes 12.5mg Q.5D Take 0.5 M ethodi tartrate 9-[address] (LOPRESSOR) 00:00: (12.5 mg Ho spita 25 mg 00 total) by l tablet mouth 2 (two) times a day. magnesium 2021-0 2021- No 400mg QD Take 400 Me thodi oxide 04-08 09-[address] (MAG-OX) 03:54: 00:00 mouth Hospita 400 mg 26 :00 daily. l (241.3 mg magnesium) tablet magnesium 2022021- No 400mg QD Take 400 Me thodi oxide 04-[address] (MAG-OX) 03:54: 00:00 mouth Hospita 400 mg 26 :00 daily. l (241.3 mg magnesium) tablet magnesium 2021- No 400mg QD Take 400 Me thodi oxide 04-[address] (MAG-OX) 03:54: 00:00 mouth Hospita 400 mg 26 :00 daily. l (241.3 mg magnesium) tablet magnesium 2021- No 400mg QD Take 400 Me thodi oxide 04-[address] (MAG-OX) 03:54: 00:00 mouth Hospita 400 mg 26 :00 daily. l (241.3 mg magnesium) tablet spironolact 2021- No 25mg QD Take 25 mg Methodi one 04-[address] (ALDACTONE) 03:43: 00:00 daily. Hos zachariah 25 MG 52 :00 Mon-Mon- l tablet d and Monday spironolact 2021- No 25mg QD Take 25 mg Methodi one 04-[address] (ALDACTONE) 03:43: 00:00 daily. Hos zachariah 25 MG 52 :00 Sun- l tablet d and Monday spironolact 2021- No 25mg QD Take 25 mg [facility] one 04-[address] (ALDACTONE) 03:43: 00:00 daily. Hos zachariah 25 MG 52 :00 Mon-Mon- l tablet d and Monday spironolact 2021- No 25mg QD Take 25 mg [facility] one 04-[address] (ALDACTONE) 03:43: 00:00 daily. Hos zachariah 25 MG 52 :00 Mon-Mon- l tablet d and Monday ferrous 2021- No 325mg Q.5D Take 325 [facility] sulfate 325 4-19 04-[address] (65 FE) MG 21:29: 00:00 mouth 2 Hos zachariah tablet 01 :00 (two) l times a day. metFORMIN 2021- No 1000mg Q.5D Take 1,000 [facility] (GLUCOPHAGE 4-18 04-[address] ) 1,000 mg 21:29: 00:00 mouth 2 Hos zachariah tablet 40 :00 (two) l times a day with meals. 4 tabs by mouth with breakfast docosahexae 2021- No 2{tbl} Q.5D Take 2 M ethodi noic 11-22-[address] acid/epa 21:29: 00:00 mouth 2 Hospi ta (FISH OIL 40 :00 (two) l ORAL) times a day. daily insulin 2021- No Inject [facility] glargine,hu 11-[address] .rec.anlog 21:29: 00:00 skin. 30 u Hospita (LANTUS 40 :00 nightly l U-100 INSULIN SUBQ) potassium 2021- No 10meq QD Take 10 [facility] chloride 11-22-[address] (K-DUR) 10 21:29: 00:00 mouth Hospi ta MEQ CR 40 :00 daily. l tablet fluticasone 2021- No Inhale. Me thodi /umeclidin/ 11-[address] vilanter 21:29: 00:00 for a Hospita (TRELEGY 40 :00 month l ELLIPTA INHL) UNABLE TO 2021- No QD daily. Metho di FIND 11-2218 Hair, skin st 21:29: 00:00 ,nails Hospita 40 :00 Biotin l enoxaparin 2021- No 40mg QD Inject 0.4 [facility] (LOVENOX) 11-22-02 mL ([address] 40 mg/0.4 00:00: 00:00 total) Hospi ta mL syringe 00 :00 under the l skin daily. enoxaparin 2021- No 40mg QD Inject 0.4 [facility] (LOVENOX) 11-22-02 mL ([address] 40 mg/0.4 00:00: 00:00 total) Hospi ta mL syringe 00 :00 under the l skin daily. enoxaparin 2021- No 40mg QD Inject 0.4 [facility] (LOVENOX) 11-22-02 mL ([address] 40 mg/0.4 00:00: 00:00 total) [facility]pi ta mL syringe 00 :00 under the l skin daily. enoxaparin 2021- No 40mg QD Inject 0.4 [facility] (LOVENOX) 11-22-02 mL ([address] 40 mg/0.4 00:00: 00:00 total) Hospi ta mL syringe 00 :00 under the l skin daily. insulin 2021- No 25U QD Inject [facility] GLARGINE 11-[address] (Lantus 00:00: 04:59 (25 Units [facility] U-100 00 :00 total) l Insulin) under the 100 unit/mL skin injection nightly (vial) for 30 days. acetaminoph 2021- No 650mg Q6H Take 2 Me [facility] en 11-[address] (TYLENOL) 00:00: 04:59 (650 mg [facility] 325 MG 00 :00 total) by l tablet mouth every 6 (six) hours as needed for mild pain or fever for up to 30 days. insulin 2021- No 0U Q.[id number] Inject M [facility]i lispro 11-22 [id number] 0-[address] (ADMELOG) 00:00: 04:59 3D under the Ho spita 100 unit/mL 00 :00 skin 3 l injection (three) times a day with meals for 30 days. ondansetron 2021- No 4mg Q8H Take 1 [facility] ODT 11-22 tablet (4 st (ZOFRAN-ODT 00:00: 04:59 mg total) Hospita ) 4 MG 00 :00 by mouth l disintegrat every 8 ing tablet (eight) hours as needed for nausea or vomiting for up to 30 days. cefdinir 2021- No 300mg Q.5D Take 1 Meth[facility] di (OMNICEF) 11-[address] 300 MG 00:00: 04:59 (300 mg Hospita capsule 00 :00 total) by l mouth 2 (two) times a day for 1 day. ergocalcife 2021- No [id number] Q7D Take Met hodi rol 4-06 04-06 50,000 [address] (VITAMIN 14:49: 00:00 Units by [facility] D2) 50,000 43 :00 mouth once l unit a week. capsule FERROUS 2021- No 1{tbl} Q.5D Take 1 [facility] di SULFATE 10-[address] ORAL 15:13: 00:00 mouth 2 Hospita 17 :00 (two) l times a day. 325 mg BID primidone Yes [id number] Please use [facility] (MYSOLINE) 10-[address] 50 MG 00:00: (50 mg) in Hospit a tablet 00 the l morning and 3 tablets (150 mg) in the evening primidone 2022- No [id number] Please use [facility] (MYSOLINE) 10-[address] 50 MG 00:00: 00:00 (50 mg) in Hospi ta tablet 00 :00 the l morning and 3 tablets (150 mg) in the evening primidone 2022- No [id number] Please use [facility] (MYSOLINE) 10-[address] 50 MG 00:00: 00:00 (50 mg) in Hospi ta tablet 00 :00 the l morning and 3 tablets (150 mg) in the evening primidone 2022- No [id number] Please use [facility] (MYSOLINE) 10-[address] 50 MG 00:00: 00:00 (50 mg) in Hospi ta tablet 00 :00 the l morning and 3 tablets (150 mg) in the evening carbidopa-l 2022- No [id number] 1{tbl} Q.54522490 Take 1 [facility] evodopa 10-[id number] (SINEMET) 00:00: 05:59 3D mouth 3 [facility] 25-100 mg 00 :00 (three) l per tablet times a day before meals. carbidopa-l 2022- No [id number] 1{tbl} Q.51450696 Take 1 [facility] evodopa 10-[id number] (SINEMET) 00:00: 05:59 3D mouth 3 [facility] 25-100 mg 00 :00 (three) l per tablet times a day before meals. carbidopa-l 2022- No [id number] 1{tbl} Q.42918571 Take 1 [facility] evodopa 3-05 09-[id number] (SINEMET) 00:00: 05:59 3D mouth 3 [facility] 25-100 mg 00 :00 (three) l per tablet times a day before meals. carbidopa-l 2022- No [id number] 1{tbl} Q.82573801 Take 1 [facility] evodopa 3-05 09-[id number] (SINEMET) 00:00: 05:59 3D mouth 3 [facility] 25-100 mg 00 :00 (three) l per tablet times a day before meals. zinc 2021- No 1{capsu QD Take 1 [facility] sulfate 2-04 10- le} capsule by st (ZINCATE) 13:58: 00:00 mouth Hospit a 50 mg zinc 19 :00 daily. l (220 mg) capsule galantamine 2020-08- No [id number] 8mg Q.5D Take 1 [facility] (RAZADYNE) 0-29 10-30 tablet (8 st 8 MG tablet 00:00: 04:59 mg total) Hospita 00 :00 by mouth 2 l (two) times a day. galantamine 2020-08- No [id number] 8mg Q.5D Take 1 [facility] (RAZADYNE) 0-29 10-30 tablet (8 st 8 MG tablet 00:00: 04:59 mg total) Hospita 00 :00 by mouth 2 l (two) times a day. galantamine 2020-08- No [id number] 8mg Q.5D Take 1 [facility] (RAZADYNE) 0-29 10-30 tablet (8 st 8 MG tablet 00:00: 04:59 mg total) Hospita 00 :00 by mouth 2 l (two) times a day. galantamine 2020-08- No [id number] 8mg Q.5D Take 1 [facility] (RAZADYNE) 0-29 10-30 tablet (8 st 8 MG tablet 00:00: 04:59 mg total) Hospita 00 :00 by mouth 2 l (two) times a day. primidone 2020-08- No [id number] Please use [facility] (MYSOLINE) 0-29 03-[address] 50 MG 00:00: 00:00 (50 mg) in Hospi ta tablet 00 :00 the l morning and 3 tablets (150 mg) in the evening galantamine Yes [id number] 16mg QD Take 1 [facility] ER 8-[address] (RAZADYNE 00:00: (16 mg Hospit a ER) 16 MG 00 total) by l 24 hr mouth capsule daily with breakfast. BUMETanide 2020- No 1mg Q2D Take 1 mg M [facility] (BUMEX) 1 6-05 06-[address] MG tablet 01:02: 00:00 every Hospit a 51 :00 other day. l spironolact 2020- No 100mg Q2D Take 100 [facility] one - 06-[address] (ALDACTONE) 01:02: 00:00 mouth [facility] 100 MG 51 :00 every l tablet other day. [facility]. Takes one half on these days metFORMIN 2020- Yes 1000mg Q.5D Take 1,000 [facility] (GLUCOPHAGE 6-[address] ) 1,000 mg 01:02: mouth 2 [facility] tablet 49 (two) l times a day with meals. aspirin Yes 81mg QD Take 81 mg [facility] (ECOTRIN) 6-[address] 81 MG 01:02: nightly. Hospita enteric 49 l coated tablet multivitami Yes 1{tbl} QD Take 1 Me [facility]odi n with 6-[address] minerals 01:02: mouth Hospita tablet 49 daily. l docusate Yes 100mg QD Take 100 [facility] sodium 6-[address] (COLACE) 01:02: mouth Hospita 100 MG 49 daily. l capsule docosahexae Yes 2{tbl} Q.5D Take 2 Me [facility] noic 6-[address] acid/epa 01:02: mouth 2 Hospit a (FISH OIL 49 (two) l ORAL) times a day. daily levothyroxi 2021-0 Yes 250ug QD Take 250 M ethodi ne 6-[address] (SYNTHROID) 01:02: mouth Hospi ta 200 mcg 49 every l tablet morning. insulin Yes 53U Q.5D Inject 53 Metho di 70/30 NPH 6-[address] and regular 01:02: under the H ospita human 49 skin 2 l (HumuLIN (two) 70/30) 100 times a unit/mL day. 53 u (70-30) daily injection FERROUS Yes 1{tbl} QD Take 1 [facility] SULFATE 6-[address] ORAL 01:02: mouth Hospita 49 daily. l fluticasone Yes 1{puff} QD Inhale 1 [facility] /umeclidin/ 6-[address] vilanter 01:02: daily. Hospita (TRELEGY 49 l ELLIPTA INHL) lidocaine 2020- No 1{patch Q24H Place 1 M [facility]i (LIDODERM) 01-09 07-06 } patch on st 5 % 00:00: 04:59 the skin Hospita 00 :00 daily for l 30 days. Remove & Discard patch within 12 hours or as directed by rosuvastati Yes 10mg QD Take 2 Meth troy n (CRESTOR) 6-[address] 5 mg tablet 00:00: (10 mg [facility] 00 total) by l mouth daily. rosuvastati Yes 10mg QD Take 2 Meth [facility] n (CRESTOR) 6-[address] 5 mg tablet 00:00: (10 mg [facility] 00 total) by l mouth daily. ezetimibe Yes 10mg QD Take 1 [facility] (ZETIA) 10 6-04 tablet (10 st mg tablet 00:00: mg total) Hos zachariah 00 by mouth l daily. cefpodoxime Yes 100mg Q.5D Take 1 Met h[facility] (VANTIN) 6-[address] 100 MG 00:00: (100 mg Hospita tablet 00 total) by l mouth 2 (two) times a day for 7 days. rosuvastati Yes 10mg QD Take 2 Meth [facility] n (CRESTOR) 6-[address] 5 mg tablet 00:00: (10 mg [facility] 00 total) by l mouth daily. rosuvastati Yes 10mg QD Take 2 [facility] n (CRESTOR) 6-[address] 5 mg tablet 00:00: (10 mg [facility] 00 total) by l mouth daily. rosuvastati Yes 10mg QD Take 2 Meth [facility] n (CRESTOR) 6-[address] 5 mg tablet 00:00: (10 mg [facility] 00 total) by l mouth daily. carvediloL 2020- No 6.25mg Q.5D Take 1 Me [facility] (COREG) 01-[address] 6.25 MG 00:00: 04:59 (6.25 mg Hospi ta tablet 00 :00 total) by l mouth 2 (two) times a day for 30 days. gabapentin 2020- No 100mg Q.[id number] Take 1 [facility] (NEURONTIN) 01-08- [id number] capsule st 100 mg 00:00: 04:59 3D (100 mg Hospita capsule 00 :00 total) by l mouth 3 (three) times a day for 30 days. loratadine No 10mg QD Take 10 mg [facility] (CLARITIN) 01-[address] 10 mg 07:25: 00:00 nightly. Hospita tablet 40 :00 l simvastatin 2020- No QD daily. Met hodi (ZOCOR) 20 01-06 st mg tablet 07:24: 00:00 Hospita 00 :00 l albuterol Yes 2{puff} Q4H Inhale 2 M ethodi (PROAIR 5-[address] HFA) 90 00:00: every 4 Hospita mcg/actuati 00 (four) l on inhaler hours as needed. albuterol Yes 2{puff} Q4H Inhale 2 M [facility]i (PROAIR 5-[address] HFA) 90 00:00: every 4 Hospita mcg/actuati 00 (four) l on inhaler hours as needed. albuterol Yes 2{puff} Q4H Inhale 2 M ethodi (PROAIR 5-[address] HFA) 90 00:00: every 4 Hospita mcg/actuati 00 (four) l on inhaler hours as needed. albuterol Yes 2{puff} Q4H Inhale 2 M ethodi (PROAIR 5-[address] HFA) 90 00:00: every 4 Hospita mcg/actuati 00 (four) l on inhaler hours as needed. ferrous 2020- No [id number] 325mg Q.5D Take 1 Me [facility] sulfate 325 08-29-[address] (65 FE) MG 00:00: 04:59 (325 mg Hos z[facility]aria[facility] tablet 00 :00 total) by l mouth 2 (two) times a day with meals for 90 days. ferrous 2020- No [id number] 325mg Q.5D Take 1 Me [facility] sulfate 325 08-[address] (65 FE) MG 00:00: 00:00 (325 mg Hos zachariah tablet 00 :00 total) by l mouth 2 (two) times a day with meals for 90 days. cyanocobala Yes [id number] 1000ug [facility] min [address] injection 18:45: Hospita 1,000 mcg 00 l cholecalcif 2020- No Take by Me thodi pushpa, 08-[address] vitamin D3, 17:13: 00:00 daily [facility] (Vitamin 44 :00 l D3) 125 mcg (5,000 unit) tablet ZINC ORAL 2020- No Take by Meth troy 08-[address] 17:13: 00:00 daily Hospita 44 :00 l thiamine 2020- No Take by Metho di HCl 08-[address] (VITAMIN 17:13: 00:00 daily Hospita B-1 ORAL) 44 :00 l galantamine Yes 16mg Take [address] [facility] (RAZADYNE 1-07 by [facility]) 16 MG 01:58: daily with Me dical 24 hr 39 breakfast. Center capsule albuterol Yes 1{puff} Inhale [address] HFA 1-07 puff by [facility] (VENTOLIN 01:58: mouth via Med ical HFA) 90 39 inhaler Center mcg/actuati every 6 on inhaler (six) hours as needed for Wheezing. galantamine 2020-0 Yes 16mg Take [address] [facility] (RAZADYNE 1-07 by mouth [facility]) 16 MG 01:58: daily with Me dical 24 hr 39 breakfast. Center capsule albuterol 2020-0 Yes 1{puff} Inhale [address] HFA 1-07 puff by [facility] (VENTOLIN 01:58: mouth via Med ical HFA) 90 39 inhaler Center mcg/actuati every 6 on inhaler (six) hours as needed for Wheezing. galantamine 2020-0 Yes 16mg Take [address] [facility] (RAZADYNE 1-07 by mouth [facility]) 16 MG 01:58: daily with Me dical 24 hr 39 breakfast. Center capsule albuterol 2020-0 Yes 1{puff} Inhale [address] HFA 1-07 puff by [facility] (VENTOLIN 01:58: mouth via Med ical HFA) 90 39 inhaler Center mcg/actuati every 6 on inhaler (six) hours as needed for Wheezing. galantamine 2020-0 Yes 16mg Take [address] [facility] (RAZADYNE 1-07 by mouth [facility]) 16 MG 01:58: daily with Me dical 24 hr 39 breakfast. Center capsule albuterol 2020-0 Yes 1{puff} Inhale [address] HFA 1-07 puff by [facility] (VENTOLIN 01:58: mouth via Med ical HFA) 90 39 inhaler Center mcg/actuati every 6 on inhaler (six) hours as needed for Wheezing. galantamine 2020-0 Yes 16mg Take [address] [facility] (RAZADYNE 1-07 by mouth [facility]) 16 MG 01:58: daily with Me dical 24 hr 39 breakfast. Center capsule albuterol 2020-0 Yes 1{puff} Inhale [address] HFA 1-07 puff by [facility] (VENTOLIN 01:58: mouth via Med ical HFA) 90 39 inhaler Center mcg/actuati every 6 on inhaler (six) hours as needed for Wheezing. galantamine 2020-0 Yes 16mg Take [address] [facility] (RAZADYNE 1-07 by mouth [facility]) 16 MG 01:58: daily with Me dical 24 hr 39 breakfast. Center capsule albuterol Yes 1{puff} Inhale [address] HFA 1-07 puff by [facility] (VENTOLIN 01:58: mouth via Med ical HFA) 90 39 inhaler Center mcg/actuati every 6 on inhaler (six) hours as needed for Wheezing. galantamine Yes 16mg Take [address] [facility] (RAZADYNE 1-07 by mouth [facility]) 16 MG 01:58: daily with Me dical 24 hr 39 breakfast. Center capsule albuterol Yes 1{puff} Inhale [address] HFA 1-07 puff by [facility] (VENTOLIN 01:58: mouth via Med ical HFA) 90 39 inhaler Center mcg/actuati every 6 on inhaler (six) hours as needed for Wheezing. nebulizer Yes Accessorie [facility] accessories 1-[address] kit 00:00: with [facility] 00 nebulizer l machine. nebulizer 0 Yes 1 [facility] and 1-[address] compressor 00:00: machine to H ospita device 00 use for l breathing treatments .. nebulizer Yes Accessorie [facility] 1-07 s to use [facility] Kit 00:00: with [facility] 00 nebulizer Center machine. nebulizer [address] [facility] and 1-07 nebulizer [facility] compressor 00:00: machine to edical [place] use for Center breathing treatments .. nebulizer 0 Yes [facility] 1-07 s to use Luke s Kit 00:00: with [facility] 00 nebulizer Center machine. nebulizer [address] [facility] and 1-07 nebulizer [facility] compressor 00:00: machine to M edical [place] use for Center breathing treatments .. nebulizer 0 Yes [facility] accessories 1-07 s to use Luke s Kit 00:00: with [facility] 00 nebulizer Center machine. nebulizer [address] [facility] and 1-07 nebulizer [facility] compressor 00:00: machine to M edical [place] use for Center breathing treatments .. nebulizer 0 Yes [facility] accessories 1-07 s to use Luke s Kit 00:00: with [facility] nebulizer Center machine. nebulizer 2020-[address] [facility] and 1-07 nebulizer [facility] compressor 00:00: machine to [facility] use for Center breathing treatments .. nebulizer 0 Yes [facility] accessories 1-07 s to use Luke s Kit 00:00: with [facility] nebulizer Center machine. nebulizer [address] [facility] and 1-07 nebulizer [facility] compressor 00:00: machine to [facility] use for Center breathing treatments .. nebulizer 0 Yes [facility] accessories 1-07 s to use Luke s Kit 00:00: with [facility] nebulizer Center machine. nebulizer [address] [facility] and 1-07 nebulizer [facility] compressor 00:00: machine to [facility] use for Center breathing treatments .. nebulizer Yes Accessorie [facility] accessories 1-07 s to use Luke s Kit 00:00: with [facility] nebulizer Center machine. nebulizer [address] [facility] [address] and 1-07 nebulizer [facility] compressor 00:00: machine to [facility] use for Center breathing treatments .. albuterol 2021- No 2.5mg Inhale 2.5 [facility] (PROVENTIL) 08-13-[address] 5 mg/mL 00:00: 05:59 needed. Hospit a nebulizer 00 :00 l solution albuterol 2021- No 2.5mg Take 0.[address] (PROVENTIL, 08-13- mLs (2.5 Jaylen es VENTOLIN) 5 00:00: 23:59 mg total) Medical mg/mL 00 :00 by Center nebulizer nebulizati solution on every 6 (six) hours as needed for Wheezing. albuterol 2021- No 2.5mg Take 0.[address] (PROVENTIL, 08-13- mLs (2.5 Jaylen es VENTOLIN) 5 00:00: 23:59 mg total) Medical mg/mL 00 :00 by Center nebulizer nebulizati solution on every 6 (six) hours as needed for Wheezing. albuterol No 2.5mg Take 0.[address] (PROVENTIL, 08-13 mLs (2.5 Jaylen es VENTOLIN) 5 00:00: 23:59 mg total) Medical mg/mL 00 :00 by Center nebulizer nebulizati solution on every 6 (six) hours as needed for Wheezing. predniSONE 2020- No 50mg QD Take [address] [facility] (DELTASONE) 08-13 tablet (50 L ukes 50 MG 00:00: 23:59 mg total) Medica l tablet 00 :00 by mouth Center daily for 5 days. predniSONE 2020- No 50mg QD Take [address] [facility] (DELTASONE) 08-13 tablet (50 L ukes 50 MG 00:00: 23:59 mg total) Medica l tablet 00 :00 by mouth Center daily for 5 days. predniSONE 2020- No 50mg QD Take [address] (DELTASONE) 08-13 tablet (50 L ukes 50 MG 00:00: 23:59 mg total) Medica l tablet 00 :00 by mouth Center daily for 5 days. aspirin 81 Yes 81mg QD Take [address] MG EC 1-06 by mouth [facility] tablet 21:30: daily . [address] insulin NPH Yes 50U Inject [address] (NOVOLIN N 1-06 Units [facility] FLEXPEN) 21:30: subcutaneo Med ical 100 unit/mL 02 usly 2 Center (3 mL) InPn (two) times daily before meals. aspirin 81 0 Yes 81mg QD Take [address] MG EC 1-06 by mouth [facility] tablet 21:30: daily . [address] insulin NPH Yes 50U Inject [address] (NOVOLIN N 1-06 Units [facility] FLEXPEN) 21:30: subcutaneo Med ical 100 unit/mL 02 usly 2 Center (3 mL) InPn (two) times daily before meals. aspirin 81 2020-0 Yes 81mg QD Take [address] MG EC 1-06 by mouth [facility] tablet 21:30: daily . [address] insulin NPH Yes 50U Inject [address] (NOVOLIN N 1-06 Units [facility] FLEXPEN) 21:30: subcutaneo Med ical 100 unit/mL 02 usly 2 Center (3 mL) InPn (two) times daily before meals. aspirin 81 Yes 81mg QD Take [address] MG EC 1-06 by mouth [facility] tablet 21:30: daily . [address] insulin NPH Yes 50U Inject [address] (NOVOLIN N 1-06 Units [facility] FLEXPEN) 21:30: subcutaneo Med ical 100 unit/mL 02 usly 2 Center (3 mL) InPn (two) times daily before meals. aspirin 81 Yes 81mg QD Take [address] MG EC 1-06 by mouth [facility] tablet 21:30: daily . [address] insulin NPH Yes 50U Inject [address] (NOVOLIN N 1-06 Units [facility] FLEXPEN) 21:30: subcutaneo Med ical 100 unit/mL 02 usly 2 Center (3 mL) InPn (two) times daily before meals. aspirin 81 Yes 81mg QD Take [address] MG EC 1-06 by mouth [facility] tablet 21:30: daily . [address] insulin NPH Yes 50U Inject [address] (NOVOLIN N 1-06 Units [facility] FLEXPEN) 21:30: subcutaneo Med ical 100 unit/mL 02 usly 2 Center (3 mL) InPn (two) times daily before meals. aspirin 81 Yes 81mg QD Take [address] MG EC 1-06 by mouth [facility] tablet 21:30: daily . [address] insulin NPH Yes 50U Inject [address] (NOVOLIN N 1-06 Units [facility] FLEXPEN) 21:30: subcutaneo Med ical 100 unit/mL 02 usly 2 Center (3 mL) InPn (two) times daily before meals. multivitami Yes 1{tbl} QD Take [address] n with 1-06 tablet by [facility] minerals 19:24: mouth Medical tablet 59 daily . Center levothyroxi 2021-0 Yes 200ug Take [address] ne 1-06 mcg by [facility] (SYNTHROID, 19:24: mouth Medic al LEVOTHROID) 59 Every Center 200 MCG morning on tablet an empty stomach . omega-3 0 Yes 2g Q.5D Take [address] [facility] fatty acids 1-06 by mouth 2 Iza kes (FISH OIL 19:24: (two) Medical CONCENTRATE 59 times Center ) 1,000 mg daily. Cap docusate 0 Yes 100mg QD Take [address] sodium 1-06 mg by [facility] (COLACE) 19:24: mouth Medical 100 MG 59 daily. Center capsule multivitami 0 Yes 1{tbl} QD Take [address] n with 1-06 tablet by [facility] minerals 19:24: mouth Medical tablet 59 daily . Center levothyroxi Yes 200ug Take [address] ne 1-06 mcg by [facility] (SYNTHROID, 19:24: mouth Medic al LEVOTHROID) 59 Every Center 200 MCG morning on tablet an empty stomach . omega-3 0 Yes 2g Q.5D Take [address] fatty acids 1-06 by mouth 2 Iza kes (FISH OIL 19:24: (two) Medical CONCENTRATE 59 times Center ) 1,000 mg daily. Cap docusate 0 Yes 100mg QD Take [address] sodium 1-06 mg by [facility] (COLACE) 19:24: mouth Medical 100 MG 59 daily. [place] capsule multivitami 0 Yes 1{tbl} QD Take [address] n with 1-06 tablet by [facility] minerals 19:24: mouth Medical tablet 59 daily . Center levothyroxi 0 Yes 200ug Take [address] ne 1-06 mcg by [facility] (SYNTHROID, 19:24: mouth Medic al LEVOTHROID) 59 Every Center 200 MCG morning on tablet an empty stomach . omega-3 2020-0 Yes 2g Q.5D Take [address] fatty acids 1-06 by mouth 2 Iza kes (FISH OIL 19:24: (two) Medical CONCENTRATE 59 times Center ) 1,000 mg daily. Cap docusate 2020-0 Yes 100mg QD Take [address] sodium 1-06 mg by [facility] (COLACE) 19:24: mouth Medical 100 MG 59 daily. Center capsule multivitami 0 Yes 1{tbl} QD Take [address] n with 1-06 tablet by [facility] minerals 19:24: mouth Medical tablet 59 daily . Center levothyroxi Yes 200ug Take [address] ne 1-06 mcg by [facility] (SYNTHROID, 19:24: mouth Medic al LEVOTHROID) 59 Every Center 200 MCG morning on tablet an empty stomach . omega-3 0 Yes 2g Q.5D Take [address] fatty acids 1-06 by mouth 2 Iza kes (FISH OIL 19:24: (two) Medical CONCENTRATE 59 times Center ) 1,000 mg daily. Cap docusate 0 Yes 100mg QD Take [address] sodium 1-06 mg by [facility] (COLACE) 19:24: mouth Medical 100 MG 59 daily. [place] capsule multivitami Yes 1{tbl} QD Take [address] n with 1-06 tablet by [facility] minerals 19:24: mouth Medical tablet 59 daily . Center levothyroxi Yes 200ug Take [address] ne 1-06 mcg by [facility] (SYNTHROID, 19:24: mouth Medic al LEVOTHROID) 59 Every Center 200 MCG morning on tablet an empty stomach . omega-3 0 Yes 2g Q.5D Take [address] [facility] fatty acids 1-06 by mouth 2 Iza kes (FISH OIL 19:24: (two) Medical CONCENTRATE 59 times Center ) 1,000 mg daily. Cap docusate 0 Yes 100mg QD Take [address] sodium 1-06 mg by [facility] (COLACE) 19:24: mouth Medical 100 MG 59 daily. [place] capsule multivitami 0 Yes 1{tbl} QD Take [address] n with 1-06 tablet by [facility] minerals 19:24: mouth Medical tablet 59 daily . Center levothyroxi 0 Yes 200ug Take [address] ne 1-06 mcg by [facility] (SYNTHROID, 19:24: mouth Medic al LEVOTHROID) 59 Every Center 200 MCG morning on tablet an empty stomach . omega-3 2020-0 Yes 2g Q.5D Take [address] [facility] fatty acids 1-06 by mouth 2 Iza kes (FISH OIL 19:24: (two) Medical CONCENTRATE 59 times Center ) 1,000 mg daily. Cap docusate 0 Yes 100mg QD Take [address] sodium 1-06 mg by [facility] (COLACE) 19:24: mouth Medical 100 MG 59 daily. Center capsule multivitami Yes 1{tbl} QD Take [address] n with 1-06 tablet by [facility] minerals 19:24: mouth Medical tablet 59 daily . Center levothyroxi Yes 200ug Take [address] ne 1-06 mcg by [facility] (SYNTHROID, 19:24: mouth Medic al LEVOTHROID) 59 Every Center 200 MCG morning on tablet an empty stomach . omega-3 Yes 2g Q.5D Take [address] [facility] fatty acids 1-06 by mouth 2 Iza kes (FISH OIL 19:24: (two) Medical CONCENTRATE 59 times Center ) 1,000 mg daily. Cap docusate Yes 100mg QD Take [address] sodium 1-06 mg by [facility] (COLACE) 19:24: mouth Medical 100 MG 59 daily. Center capsule bumetanide 2020-0 Yes 1mg Q.5D Take 1 [facility] (BUMEX) 1 9-18 tablet (1 [facility] MG tablet 00:00: mg total) Med ical 00 by mouth 2 Center (two) times daily. bumetanide 2020-0 Yes 1mg Q.5D Take 1 [facility] (BUMEX) 1 9-18 tablet (1 [facility] MG tablet 00:00: mg total) Med ical 00 by mouth 2 Center (two) times daily. bumetanide 2020-0 Yes 1mg Q.5D Take 1 [facility] (1 [facility] 00:[facility]: mg total) [facility] 00 by mouth 2 [facility] (two) times daily. bumetanide 2020-0 Yes 1mg Q.5D Take 1 [facility] ([facility] 00:[facility]: mg total) [facility] 00 by mouth 2 [facility] (two) times daily. bumetanide 2020-0 Yes 1mg Q.5D Take 1 [facility] ([facility]: mg total) [facility] 00 by mouth 2 [facility] (two) times daily. bumetanide 2020-0 Yes 1mg Q.5D Take 1 [facility] ([facility] 00:[facility]: mg total) [facility] 00 by mouth 2 [facility] (two) times daily. bumetanide 2020-0 Yes 1mg Q.5D Take [facility] 1 9-[facility] (1 [facility] 00:[facility]: mg total) Med ical 00 by mouth 2 Center (two) times daily. losartan 2020- No 25mg QD Take [address] [facility] (COZAAR) 25 04-24 tablet (25 L [facility] MG tablet 00:00: 23:59 mg total) Me dical 00 :00 by mouth Center daily. nitroglycer 2020- No Put [address] [facility] in 04-24 [facility] (NITROSTAT) 00:00: 23:59 tongue Med ical 0.4 MG SL 00 :00 every 5min Cent er tablet as needed for chest pain.No more than 3 doses in 15min.Call 911 if pain unrelieved 5min after 1st dose. ferrous 2020- No 300mg Q.5D Take [address] [facility] sulfate 300 04-24 (300 mg [facility] mg (60 mg 00:00: 23:59 total) by Me dical iron)/5 mL 00 :00 mouth 2 Center syrup (two) times daily. losartan 2020- No 25mg QD Take [address] [facility] (COZAAR) 25 04-24 tablet (25 L [facility] MG tablet 00:00: 23:59 mg total) Me dical 00 :00 by mouth Center daily. nitroglycer 2020- No Put [address] [facility] in 04-24 [facility] (NITROSTAT) 00:00: 23:59 tongue Med ical 0.4 MG SL 00 :00 every 5min Cent er tablet as needed for chest pain.No more than 3 doses in 15min.Call 911 if pain unrelieved 5min after 1st dose. ferrous 2020- No 300mg Q.5D Take [address] [facility] sulfate 300 04-24 (300 mg [facility] mg (60 mg 00:00: 23:59 total) by Me dical iron)/5 mL 00 :00 mouth 2 Center syrup (two) times daily. losartan 2020- No 25mg QD Take [address] [facility] (COZAAR) 25 04-24 tablet (25 L [facility]kes MG tablet 00:00: 23:59 mg total) Me dical 00 :00 by mouth Center daily. nitroglycer 2020- No Put [address] [facility] in 04-24 [facility] (NITROSTAT) 00:00: 23:59 tongue Med ical 0.4 MG SL 00 :00 every 5min Cent er tablet as needed for chest pain.No more than 3 doses in 15min.Call 911 if pain unrelieved 5min after 1st dose. ferrous 2020- No 300mg Q.5D Take [address] [facility] sulfate 300 04-24 (300 mg [facility] mg (60 mg 00:00: 23:59 total) by Ga dical iron)/5 mL 00 :00 mouth 2 Center syrup (two) times daily. ranolazine 2020-0 Yes 500mg Q.5D Take 1 [facility] (RANEXA) 9-[address] 500 MG 12 00:00: (500 mg Hospi ta hr ER 00 total) by l tablet mouth 2 (two) times a day. ranolazine 2020-0 Yes 500mg Q.5D Take 500 [facility] (RANEXA) 9-[address] 500 MG 12 00:00: mouth 2 Hospi ta hr ER 00 (two) l tablet times a day. ranolazine 2020-0 Yes 500mg Q.5D Take 500 [facility] (RANEXA) 9-[address] 500 MG 12 00:00: mouth 2 Hospi ta hr ER 00 (two) l tablet times a day. ranolazine 2020-0 Yes 500mg Q.5D Take 1 [facility] (RANEXA) 9-[address] 500 MG 12 00:00: (500 mg Hospi ta hr ER 00 total) by l tablet mouth 2 (two) times a day. ranolazine 2020-0 Yes 500mg Q.5D Take [address] (RANEXA) 9-05 mg by [facility] 500 MG 12 00:00: mouth 2 Medic al hr tablet 00 (two) Center times daily. potassium 2020-0 Yes TAKE [address] [facility] chloride SA 9-05 TABLET BY Jaylen es (K-DUR,KLOR 00:00: MOUTH ONCE Medical -CON) 20 00 DAILY WITH Cente r MEQ tablet BUMETANIDE DIRECTED ranolazine 2020-0 Yes 500mg Q.5D Take 1 [facility] (RANEXA) 9-[address] 500 MG 12 00:00: (500 mg Hospi ta hr ER 00 total) by l tablet mouth 2 (two) times a day. ranolazine 2020-0 Yes 500mg Q.5D Take [address] (RANEXA) 9-05 mg by [facility] 500 MG 12 00:00: mouth 2 Medic al hr tablet 00 (two) Center times daily. potassium 2020-0 Yes TAKE [address] [facility] chloride SA 9-05 TABLET BY Jaylen es (K-DUR,KLOR 00:00: MOUTH ONCE Medical -CON) 20 00 DAILY WITH Cente r MEQ tablet BUMETANIDE DIRECTED ranolazine 2020-0 Yes 500mg Q.5D Take [address] (RANEXA) 9-05 mg by [facility] 500 MG 12 00:00: mouth 2 Medic al hr tablet 00 (two) Center times daily. potassium 2020-0 Yes TAKE [address] [facility] [address] chloride SA 9-05 TABLET BY Jaylen es (K-DUR,KLOR 00:00: MOUTH ONCE Medical -CON) 20 00 DAILY WITH Cente r MEQ tablet BUMETANIDE DIRECTED ranolazine 2020-0 Yes 500mg Q.5D Take [address] (RANEXA) 9-05 mg by [facility] 500 MG 12 00:00: mouth 2 Medic al hr tablet 00 (two) Center times daily. potassium 2020-0 Yes TAKE [address] [facility] [address] chloride SA 9-05 TABLET BY Jaylen es (K-DUR,KLOR 00:00: MOUTH ONCE Medical -CON) 20 00 DAILY WITH Cente r MEQ tablet BUMETANIDE DIRECTED ranolazine 2020-0 Yes 500mg Q.5D Take [address] (RANEXA) 9-05 mg by [facility] 500 MG 12 00:00: mouth 2 Medic al hr tablet 00 (two) Center times daily. potassium 2020-0 Yes TAKE [address] [facility] chloride SA 9-05 TABLET BY Jaylen es (K-DUR,KLOR 00:00: MOUTH ONCE Medical -CON) 20 00 DAILY WITH Cente r MEQ tablet BUMETANIDE DIRECTED ranolazine 2020-0 Yes 500mg Q.5D Take [address] (RANEXA) 9-05 mg by [facility] 500 MG 12 00:00: mouth 2 Medic al hr tablet 00 (two) Center times daily. potassium 2020-0 Yes TAKE [address] [facility] [address] chloride SA 9-05 TABLET BY Jaylen es (K-DUR,KLOR 00:00: MOUTH ONCE Medical -CON) 20 00 DAILY WITH Cente r MEQ tablet BUMETANIDE DIRECTED ranolazine 2020-0 Yes 500mg Q.5D Take [address] (RANEXA) 9-05 mg by [facility] 500 MG 12 00:00: mouth 2 Medic al hr tablet 00 (two) Center times daily. potassium 2020-0 Yes TAKE [address] [facility] chloride SA 9-05 TABLET BY Jaylen es (K-DUR,KLOR 00:00: MOUTH ONCE Medical -CON) 20 00 DAILY WITH Cente r MEQ tablet BUMETANIDE DIRECTED spironolact 2020-0 Yes TAKE [address] [facility] one 9-04 TABLET BY [facility] (ALDACTONE) 00:00: MOUTH ONCE Medical 25 MG 00 DAILY WITH Center tablet FOOD EVERY Monday AND MONDAY spironolact 2020-0 Yes TAKE [address] [facility] one 9-04 TABLET BY [facility] (ALDACTONE) 00:00: MOUTH ONCE Medical 25 MG 00 DAILY WITH Center tablet FOOD EVERY Monday AND MONDAY spironolact 2020-0 Yes TAKE [address] [facility] one 9-04 TABLET BY [facility] (ALDACTONE) 00:00: MOUTH ONCE Medical 25 MG 00 DAILY WITH Center tablet FOOD EVERY Monday AND MONDAY spironolact 2020-0 Yes TAKE [address] [facility] one 9-04 TABLET BY [facility] (ALDACTONE) 00:00: MOUTH ONCE Medical 25 MG 00 DAILY WITH Center tablet FOOD EVERY Monday AND MONDAY spironolact 2020-0 Yes TAKE [address] [facility] one 9-04 TABLET BY [facility] (ALDACTONE) 00:00: MOUTH ONCE Medical 25 MG 00 DAILY WITH Center tablet FOOD EVERY Monday AND MONDAY spironolact 2020-0 Yes TAKE [address] [facility] one 9-04 TABLET BY [facility] (ALDACTONE) 00:00: MOUTH ONCE Medical 25 MG 00 DAILY WITH Center tablet FOOD EVERY Monday AND MONDAY spironolact 2020-0 Yes TAKE [address] [facility] one 9-04 TABLET BY [facility] (ALDACTONE) 00:00: MOUTH ONCE Medical 25 MG 00 DAILY WITH Center tablet FOOD EVERY Monday AND MONDAY citalopram 2020-0 Yes 40mg QD Take 1 [facility] (CeleXA) 40 8-29 tablet (40 st MG tablet 00:00: mg total) Hos zachariah 00 by mouth l daily. citalopram 2020-0 Yes 40mg QD Take 40 mg M [facility]i (CeleXA) 40 8-[address] MG tablet 00:00: daily. Hospit a 00 l citalopram 2020-0 Yes 40mg QD Take 40 mg M ethodi (CeleXA) 40 8-[address] MG tablet 00:00: daily. Hospit a 00 l citalopram 2020-0 Yes 40mg QD Take 1 [facility] (CeleXA) 40 8-29 tablet (40 st MG tablet 00:00: mg total) Hos zachariah 00 by mouth l daily. citalopram 2020-0 Yes 40mg QD Take [address] (CELEXA) 40 8-29 by mouth [facility] MG tablet 00:00: daily FOR Med [facility] 00 DEPRESSION Center . citalopram 2020-0 Yes 40mg QD Take 1 [facility] (CeleXA) 40 8-29 tablet (40 st MG tablet 00:00: mg total) Hos zachariah 00 by mouth l daily. citalopram 2020-0 Yes 40mg QD Take [address] (CELEXA) 40 8-29 by mouth [facility] MG tablet 00:00: daily FOR Med ica 00 DEPRESSION Center . citalopram 2020-0 Yes 40mg QD Take [address] (CELEXA) 40 8-29 by mouth [facility] MG tablet 00:00: daily FOR Med ica 00 DEPRESSION Center . citalopram 2020-0 Yes 40mg QD Take [address] (CELEXA) 40 8-29 by mouth [facility] MG tablet 00:00: daily FOR Med [facility] 00 DEPRESSION Center . citalopram 2020-0 Yes 40mg QD Take [address] (CELEXA) 40 8-29 by mouth [facility] MG tablet 00:00: daily FOR [place] [id number] DEPRESSION Center . citalopram 2020-0 Yes 40mg QD Take [address] (CELEXA) 40 8-29 by mouth [facility] MG tablet 00:00: daily FOR [place] [address] DEPRESSION Center . citalopram 2020-0 Yes 40mg QD Take [address] (CELEXA) 40 8-29 by mouth [facility] MG tablet 00:00: daily FOR [place] [address] DEPRESSION Center . metoprolol 2020-0 Yes 25mg QD Take [address] tartrate 8-28 by mouth [facility] (LOPRESSOR) 00:00: daily. Medi jamin 25 MG 00 Center tablet metoprolol 2020-0 Yes 25mg QD Take [address] tartrate 8-28 by mouth [facility] (LOPRESSOR) 00:00: daily. Medi jamin 25 MG 00 Center tablet metoprolol 2020-0 Yes 25mg QD Take [address] tartrate 8-28 by mouth [facility] (LOPRESSOR) 00:00: daily. Medi jamin 25 MG 00 Center tablet metoprolol 2020-0 Yes 25mg QD Take [address] tartrate 8-28 by mouth [facility] (LOPRESSOR) 00:00: daily. Medi jamin 25 MG 00 Center tablet metoprolol 2020-0 Yes 25mg QD Take [address] tartrate 8-28 by mouth [facility] (LOPRESSOR) 00:00: daily. Medi jamin 25 MG 00 Center tablet metoprolol 2020-0 Yes 25mg QD Take [address] tartrate 8-28 by mouth [facility] (LOPRESSOR) 00:00: daily. Medi jamin 25 MG 00 Center tablet metoprolol 2020-0 Yes 25mg QD Take [address] tartrate 8-28 by mouth [facility] (LOPRESSOR) 00:00: daily. Medi jamin 25 MG 00 Center tablet metoprolol 2020-0 2021- No 25mg QD Take 25 mg [facility] tartrate 8-28 06-[address] (LOPRESSOR) 00:00: 00:00 daily. Hos zachariah 25 mg 00 :00 l tablet metFORMIN 2020-0 Yes 1000mg Take 1,[address] [facility] (GLUCOPHAGE 8-25 mg by [facility] ) 1000 MG 00:00: mouth 2 Medic al tablet 00 (two) Center times daily with breakfast and dinner . metFORMIN 2020-0 Yes 1000mg Take 1,[address] [facility] (GLUCOPHAGE 8-25 mg by [facility] ) 1000 MG 00:00: mouth 2 Medic al tablet 00 (two) Center times daily with breakfast and dinner . metFORMIN 2020-0 Yes 1000mg Take 1,[address] [facility] (GLUCOPHAGE 8-25 mg by [facility] ) 1000 MG 00:00: mouth 2 Medic al tablet 00 (two) Center times daily with breakfast and dinner . metFORMIN 2020-0 Yes 1000mg Take 1,[address] [facility] (GLUCOPHAGE 8-25 mg by [facility] ) 1000 MG 00:00: mouth 2 Medic al tablet 00 (two) Center times daily with breakfast and dinner . metFORMIN 2020-0 Yes 1000mg Take 1,[address] [facility] (GLUCOPHAGE 8-25 mg by [facility] ) 1000 MG 00:00: mouth 2 Medic al tablet 00 (two) Center times daily with breakfast and dinner . metFORMIN 2020-0 Yes 1000mg Take 1,[address] [facility] (GLUCOPHAGE 8-25 mg by [facility] ) 1000 MG 00:00: mouth 2 Medic al tablet 00 (two) Center times daily with breakfast and dinner . metFORMIN 2020-0 Yes 1000mg Take 1,[address] [facility] (GLUCOPHAGE 8-25 mg by [facility] ) 1000 MG 00:00: mouth 2 Medic al tablet 00 (two) Center times daily with breakfast and dinner . clopidogreL 2020-0 Yes 75mg QD Take 1 [facility] (PLAVIX) 75 7-29 tablet (75 st mg tablet 00:00: mg total) Hos zachariah 00 by mouth l daily. clopidogreL 2020-0 Yes 75mg QD Take 75 mg [facility] (PLAVIX) 75 7-[address] mg tablet 00:00: daily. Hospit a 00 l clopidogreL 2020-0 Yes 75mg QD Take 75 mg [facility] (PLAVIX) 75 7-[address] mg tablet 00:00: daily. Hospit a 00 l clopidogreL 2020-0 Yes 75mg QD Take 1 [facility] (PLAVIX) 75 7-29 tablet (75 st mg tablet 00:00: mg total) Hos zachariah 00 by mouth l daily. clopidogreL 2020-0 Yes 75mg QD Take [address] [facility] (PLAVIX) 75 7-29 by mouth [facility] mg tablet 00:00: daily. Medica l 00 [place] clopidogreL 2020-0 Yes 75mg QD Take 1 [facility] (PLAVIX) 75 7-29 tablet (75 st mg tablet 00:00: mg total) Hos zachariah 00 by mouth l daily. clopidogreL 2020-0 Yes 75mg QD Take [address] [facility] (PLAVIX) 75 7-29 by mouth [facility] mg tablet 00:00: daily. Medica l 00 [place] clopidogreL 2020-0 Yes 75mg QD Take [address] [facility] (PLAVIX) 75 7-29 by mouth [facility] mg tablet 00:00: daily. Medica l 00 [place] clopidogreL 2020-0 Yes 75mg QD Take [address] [facility] (PLAVIX) 75 7-29 by mouth [facility] mg tablet 00:00: daily. Medica l 00 [place] clopidogreL 2020-0 Yes 75mg QD Take [address] [facility] (PLAVIX) 75 7-29 by mouth [facility] mg tablet 00:00: daily. Medica l 00 [place] clopidogreL 2020-0 Yes 75mg QD Take [address] [facility] (PLAVIX) 75 7-29 by mouth [facility] mg tablet 00:00: daily. Medica l 00 [place] clopidogreL 2020-0 Yes 75mg QD Take [address] [facility] (PLAVIX) 75 7-29 by mouth [facility] mg tablet 00:00: daily. Medica l 00 [place] rosuvastati 2020-0 Yes 10mg QD Take [address] [facility] n (CRESTOR) 7-28 by mouth Luke s 5 MG tablet 00:00: daily . Med ica 00 [place] ezetimibe 2020-0 Yes TAKE [address] [facility] (ZETIA) 10 7-28 TABLET BY [facility] mg tablet 00:00: MOUTH ONCE Me dical 00 DAILY FOR Center HIGH CHOLESTERO L rosuvastati 2020-0 Yes 10mg QD Take [address] [facility] n (CRESTOR) 7-28 by mouth Luke s 5 MG tablet 00:00: daily . Med ica 00 [place] ezetimibe 2020-0 Yes TAKE [address] [facility] (ZETIA) 10 7-28 TABLET BY [facility] mg tablet 00:00: MOUTH ONCE Me dical 00 DAILY FOR Center HIGH CHOLESTERO L rosuvastati 2020-0 Yes 10mg QD Take [address] [facility] n (CRESTOR) 7-28 by mouth Luke s 5 MG tablet 00:00: daily . Med ica 00 [place] ezetimibe 2020-0 Yes TAKE [address] [facility] (ZETIA) 10 7-28 TABLET BY Luke s mg tablet 00:00: MOUTH ONCE Me dical 00 DAILY FOR Center HIGH CHOLESTERO L rosuvastati 2020-0 Yes 10mg QD Take [address] n (CRESTOR) 7-28 by mouth Luke s 5 MG tablet 00:00: daily . Med ical 00 [place] ezetimibe 2020-0 Yes TAKE [address] [facility] (ZETIA) 10 7-28 TABLET BY Luke [facility] mg tablet 00:00: MOUTH ONCE Me dical 00 DAILY FOR Center HIGH CHOLESTERO L rosuvastati 2020-0 Yes 10mg QD Take [address] [facility] n (CRESTOR) 7-28 by mouth Luke s 5 MG tablet 00:00: daily . Med ical 00 [place] ezetimibe 2020-0 Yes TAKE [address] [facility] (ZETIA) 10 7-28 TABLET BY [facility] s mg tablet 00:00: MOUTH ONCE Me dical 00 DAILY FOR Center HIGH CHOLESTERO L rosuvastati 2020-0 Yes 10mg QD Take [address] n (CRESTOR) 7-28 by mouth Luke s 5 MG tablet 00:00: daily . Med ical 00 [place] ezetimibe 2020-0 Yes TAKE [address] [facility] [address] (ZETIA) 10 7-28 TABLET BY Luke s mg tablet 00:00: MOUTH ONCE Me dical 00 DAILY FOR Center HIGH CHOLESTERO L rosuvastati 2020-0 Yes 10mg QD Take [address] n (CRESTOR) 7-28 by mouth Luke s 5 MG tablet 00:00: daily . Med ical 00 [place] ezetimibe 2020-0 Yes TAKE [address] [facility] (ZETIA) 10 7-28 TABLET BY Luke s mg tablet 00:00: MOUTH ONCE Me dical 00 DAILY FOR Center HIGH CHOLESTERO L ezetimibe 2020-0 2021- No QD daily. [facility] (ZETIA) 10 7-01-06 st mg tablet 00:00: 00:00 Hospita 00 :00 l rosuvastati 2020-0 2020- No 10mg QD Take 10 mg [facility] (CRESTOR) 7-[address] 5 mg tablet 00:00: 00:00 daily. Hos zachariah 00 :00 l primidone 2020-0 2020- No [id number] 150mg QD Take 3 [facility] (MYSOLINE) 02-24 07-[address] 50 MG 00:00: 04:59 (150 mg Hospita tablet 00 :00 total) by l mouth nightly. primidone 250mg QD Take [address] (MYSOLINE) 7- 07-21 mg by [facility] 50 MG 00:00: 23:59 mouth Medical tablet 00 :00 nightly . [place] primidone No 250mg QD Take [address] (MYSOLINE) 7- 07-21 mg by [facility] 50 MG 00:00: 23:59 mouth Medical tablet 00 :00 nightly . [place] primidone No 250mg QD Take [address] (MYSOLINE) 7- 07-21 mg by [facility] 50 MG 00:00: 23:59 mouth Medical tablet 00 :00 nightly . [place] Immunizations Ordered Immunization Filled Immunization Date Status Commen ts Source Name Name PFIZER COVID-19 MRNA 2021-08-19 Completed [facility] 00:00:00 [facility] PFIZER COVID-19 MRNA 2021-08-19 Completed [facility] VACCINATION 00:00:00 [facility] PFIZER COVID-19 MRNA 2021-08-19 Completed [facility] VACCINATION 00:00:00 [facility] PFIZER COVID-19 MRNA 2021-08-19 Completed [facility] VACCINATION 00:00:00 [facility] PFIZER COVID-19 MRNA 2020-11-27 Completed [facility] VACCINATION 00:00:00 [facility] PFIZER COVID-19 MRNA 2020-11-27 Completed [facility] VACCINATION 00:00:00 [facility] PFIZER COVID-19 MRNA 2020-11-27 Completed [facility] VACCINATION 00:00:00 [facility] PFIZER COVID-19 MRNA 2020-11-27 Completed [facility] VACCINATION 00:00:00 [facility] PFIZER COVID-19 MRNA 2020-11-27 Completed [facility] VACCINATION 00:00:00 [facility] FLUZONE HIGH-DOSE PF 2019-08-14 Completed Meth odist 00:00:00 [facility] FLUZONE HIGH-DOSE PF 2019-08-14 Completed Meth odist 00:00:00 [facility] FLUZONE HIGH-DOSE PF 2019-08-14 Completed Meth odist 00:00:00 [facility] FLUZONE HIGH-DOSE PF 2019-08-14 Completed Meth [facility]ist 00:00:00 [facility] FLUZONE HIGH-DOSE PF 2019-08-14 Completed [facility]ist 00:00:00 Hospital Vital Signs Vital Name Observation Time Observation Value Comments Source HEIGHT 2020-04-23 00:00:00 172.7 cm WEIGHT 2020-04-23 00:00:00 97.07 kg HEIGHT 2020-04-23 00:00:00 172.7 cm WEIGHT 2020-04-23 00:00:00 97.07 kg Systolic blood 2022-11-03 16:49:09 135 mm[Hg] [facility] pressure Diastolic blood 2022-11-03 16:49:09 64 mm[facility]Hg[facility] Heart rate 2022-11-03 16:49:09 62 /min [facility] Oxygen saturation in 2022-11-03 16:49:09 93 /min [facility] Arterial blood by Pulse oximetry Body temperature 2022-11-03 16:48:15 36.56 Jillian [facility] Respiratory rate 2022-11-03 16:48:15 19 /min [facility] Body height 2022-11-02 04:00:00 170.2 cm [facility] Body weight 2022-11-02 04:00:00 78.971 kg [facility] BMI 2022-11-02 04:00:00 27.27 kg/m2 [facility] Systolic blood 2022-04-12 20:12:47 116 mm[Hg] Method [facility] Hospital pressure Diastolic blood 2022-04-12 20:12:47 57 mm[Hg] [facility] pressure Heart rate 2022-04-12 20:12:47 63 /min [facility] Body temperature 2022-04-12 20:12:47 35.89 Jillian [facility] Respiratory rate 2022-04-12 20:12:47 17 /min [facility] Oxygen saturation in 2022-04-12 20:12:47 97 /min [facility] Arterial blood by Pulse oximetry Body height 2022-04-08 08:30:00 170.2 cm [facility] Body weight 2022-04-08 08:30:00 81.466 kg [facility] BMI 2022-04-08 08:30:00 28.13 kg/m2 [facility] Systolic blood 2021-01-08 16:26:17 132 mm[Hg] [facility] pressure Diastolic blood 2021-01-08 16:26:17 61 mm[Hg] [facility] pressure Heart rate 2021-01-08 16:26:17 67 /min [facility] Body temperature 2021-01-08 16:26:17 36.89 Jillian [facility] Respiratory rate 2021-01-08 16:26:17 16 /min [facility] Oxygen saturation in 2021-01-08 16:26:17 95 /min [facility] Arterial blood by Pulse oximetry Body weight 2021-01-08 11:32:00 90.13 kg [facility] BMI 2021-01-08 11:32:00 30.21 kg/m2 [facility] Body height 2021-01-06 07:13:00 172.7 cm [facility] Systolic blood 2020-08-13 02:00:00 133 mm[Hg] [facility] Diastolic blood 2020-08-13 02:00:00 78 mm[Hg] [facility] Heart rate 2020-08-13 02:00:00 87 /min [facility] Body temperature 2020-08-13 02:00:00 36.89 Jillian [facility] Respiratory rate 2020-08-13 02:00:00 22 /min [facility] Oxygen saturation in 2020-08-13 02:00:00 100 /min [facility] Arterial blood by Medical Ce nter Pulse oximetry Body height 2020-08-12 02:02:00 172.7 cm [facility] Body weight 2020-08-12 02:02:00 92.987 kg [facility] BMI 2020-08-12 02:02:00 31.17 kg/m2 [facility] Procedures Procedure Date / Time Performing Clinician Source Performed POC GLUCOSE 2022-11-03 16:49:00 Daniel Serna Ho spital POC GLUCOSE 2022-11-03 12:45:00 Daniel Serna spital CBC WITH PLATELET AND 2022-11-03 09:36:00 Daniel Serna [facility] DIFFERENTIAL BASIC METABOLIC PANEL 2022-11-03 09:36:00 SernaDaniel [facility] ESTIMATED GFR 2022-11-03 09:36:00 Daniel Serna spital POC GLUCOSE 2022-11-03 09:27:00 Daniel Serna Ho spital POC GLUCOSE 2022-11-03 02:14:00 Daniel Serna Ho spital POC GLUCOSE 2022-11-02 17:26:00 Daniel Serna spital MRI LUMBAR SPINE WO CONTRAST 2022-11-02 [facility]22-[facility]-02 13:04:27 [facility] Nir POC GLUCOSE 2022-11-02 12:36:00 Daniel Serna spital CREATINE KINASE, TOTAL (CPK) 2022-11-02 [facility] AND 2022-11-02 10:00:00 [facility] DIFFERENTIAL Nir COMPREHENSIVE METABOLIC 2022-11-02 10:00:00 [facility] PANEL Nir ESTIMATED GFR 2022-11-02 10:00:00 [facility] Nir COVID-19 QUALITATIVE RT-PCR 2022-11-02 03:00:[address] [facility] [address] LUMBAR SPINE WO CONTRAST 2022-11-02 00:34:46 [facility] Nona XR CHEST 1 VW PORTABLE 2022-11-02 00:09:49 [facility] Nona CBC WITH PLATELET AND 2022-11-01 23:30:00 [facility] DIFFERENTIAL [place] COMPREHENSIVE METABOLIC 2022-11-01 23:30:00 [facility] PANEL Nona ESTIMATED GFR 2022-11-01 23:30:00 [facility] ED PRELIMINARY 2022-11-01 23:07:52 [facility] INTERPRETATION Nona POC GLUCOSE 2022-04-12 22:48:00 Maggy Chapin spital Jia POC GLUCOSE 2022-04-12 16:53:00 Maggy Chapin [facility] Jia POC GLUCOSE 2022-04-12 12:32:00 Maggy Chapin [facility] ENTERIC BACTERIAL PANEL 2022-04-12 02:32:00 Deep Carballo [facility] ENTERIC VIRAL PANEL 2022-04-12 02:32:00 [facility] POC GLUCOSE 2022-04-12 01:29:00 [facility] POC GLUCOSE 2022-04-11 22:12:00 [facility] POC GLUCOSE 2022-04-11 16:41:00 [facility] POC GLUCOSE 2022-04-11 13:46:00 [facility] POC GLUCOSE 2022-04-11 12:15:00 [facility] BASIC METABOLIC PANEL 2022-04-11 08:20:00 [facility] MAGNESIUM LEVEL 2022-04-11 08:20:00 [facility] PHOSPHORUS LEVEL 2022-04-11 08:20:00 [facility] CBC HEMOGRAM 2022-04-11 08:20:00 [facility] ESTIMATED GFR 2022-04-11 08:20:00 [facility] POC GLUCOSE 2022-04-11 01:05:00 [facility] POC GLUCOSE 2022-04-10 20:54:00 [facility] POC GLUCOSE 2022-04-10 18:29:00 [facility] POC GLUCOSE 2022-04-10 13:33:00 [facility] BASIC METABOLIC PANEL 2022-04-10 08:20:00 [facility] CBC HEMOGRAM 2022-04-10 08:20:00 [facility] ESTIMATED GFR 2022-04-10 08:20:00 [facility] POC GLUCOSE 2022-04-10 01:11:00 [facility] POC GLUCOSE 2022-04-09 21:26:00 [facility] POC GLUCOSE 2022-04-09 16:12:00 [facility] POC GLUCOSE 2022-04-09 12:24:00 [facility] BASIC METABOLIC PANEL 2022-04-09 08:15:00 [facility] CBC HEMOGRAM 2022-04-09 08:15:00 [facility] ESTIMATED GFR 2022-04-09 08:15:00 [facility] POC GLUCOSE 2022-04-09 01:24:00 [facility] POC GLUCOSE 2022-04-08 22:44:00 [facility] POC GLUCOSE 2022-04-08 18:05:00 [facility] POC GLUCOSE 2022-04-08 13:39:00 [facility] ZZCOVID-19 ANTI-SPIKE IGG 2022-04-08 10:25:00 [facility] Deep [facility] ANTIBODY TITER Nir LACTIC ACID LEVEL, SEPSIS - 2022-04-08 10:25:00 [facility] NOW AND REPEAT 2X EVERY 3 Nir HOURS TROPONIN T 2022-04-08 10:25:00 [facility] Ho jerald [place] ZZCOVID-19 SEROLOGY PATIENT 2022-04-08 10:25:00 [facility] SURVEILLANCE Nir CBC WITH PLATELET AND 2022-04-08 10:25:00 [facility] DIFFERENTIAL Nir COMPREHENSIVE METABOLIC 2022-04-08 10:25:00 [facility] Deep [facility] PANEL Nir ESTIMATED GFR 2022-04-08 10:25:00 [facility] Nir ESTIMATED GFR 2022-04-08 10:21:00 [facility] antonia RiosAlevism Ho spimeredith [place] US DUPLEX VENOUS LOWER 2022-04-08 09:15:00 [facility] EX[facility]REM[facility]IL[facility] Nir ECG ED PRELIMINARY 2022-04-08 07:37:31 [facility] COVID-19 QUALITATIVE RT-PCR 2022-04-08 07:21:00 Greg [facility] COVID-19 OMICRON VARIANT 2022-04-08 07:21:00 [facility] URINE CULTURE 2022-04-08 06:41:00 [facility] LACT[facility] ACID LEVEL, SEPSIS - 2022-04-08 06:37:00 [facility] NOW AND REPEAT 2X EVERY 3 Nir HOURS TROPONIN T 2022-04-08 06:37:00 Kait [facility] spital Nir URINALYSIS SCREEN AND 2022-04-08 06:04[facility]00 [facility] WITH REFLEX TO CULTURE ECG 12-LEAD 2022-04-08 05:47:27 Darcie Carballolon [facility] spital Nir XR CHEST 1 VW PORTABLE 2022-04-08 03:12:43 [facility] WITH PLATELET AND 2022-04-08 03:02[facility]00 [facility] DIFFERENTIAL COMPREHENSIVE METABOLIC 2022-04-08 03:02:00 [facility] PANEL MAGNESIUM LEVEL 2022-04-08 03:02:00 [facility] LACTIC ACID LEVEL, SEPSIS - 2022-04-08 03:02:00 [facility] NOW AND REPEAT 2X EVERY 3 Nir HOURS TROPONIN T 2022-04-08 03:02:00 Carballo, [facility] spital Nir B NATRIURETIC PEPTIDE 2022-04-08 03:02:00 Greg [facility] ESTIMATED GFR 2022-04-08 03:02:00 [facility] X[facility] KNEE 4+ VW BILATERAL 2022-03-04 19:49:04 Eduardo Downey [facility] MD ARTHROCENTESIS ASPIR&/INJ 2022-03-04 18:40:00 Eduardo Downey [facility] MAJOR JT/CARMELAA W/O US POC GLUCOSE 2021-11-22 21:28:00 [facility] POC GLUCOSE 2021-11-22 18:46:00 [facility] POC GLUCOSE 2021-11-22 12:58:00 [facility] CBC WITH PLATELET AND 2021-11-22 09:43:00 [facility] DIFFERENTIAL BASIC METABOLIC PANEL 2021-11-22 09:43:00 [facility] ESTIMATED GFR 2021-11-22 09:43:00 [facility] POC GLUCOSE 2021-11-22 01:23:00 [facility] POC GLUCOSE 2021-11-21 17:22:00 [facility] POC GLUCOSE 2021-11-21 13:28:00 [facility] POC GLUCOSE 2021-11-21 01:56:00 [facility] POC GLUCOSE 2021-11-20 22:01:00 [facility] POC GLUCOSE 2021-11-20 16:19:00 [facility] POC GLUCOSE 2021-11-20 12:56:00 [facility] BASIC METABOLIC PANEL 2021-11-20 09:39:00 [facility] ESTIMATED GFR 2021-11-20 09:39:00 [facility] POC GLUCOSE 2021-11-20 02:07:00 [facility] POC GLUCOSE 2021-11-19 23:02:00 [facility] POC GLUCOSE 2021-11-19 16:59:00 [facility] POC GLUCOSE 2021-11-19 13:27:00 [facility] XR SHOULDER 2+ VW LEFT 2021-11-19 03:00:00 [facility] POC GLUCOSE 2021-11-19 02:13:00 [facility] POC GLUCOSE 2021-11-18 23:10:00 [facility] IMMUNOGLOBULIN A 2021-11-18 22:48:00 [facility] 2021-11-18 17:20:00 [facility] ECG 12-LEAD 2021-11-18 15:51:45 [facility] TTE COMPLETE, W CONTRAST, W 2021-11-18 15:15:00 [facility] DOPPLER ([id number]) POC GLUCOSE 2021-11-18 13:04:00 [facility] POC GLUCOSE 2021-11-18 01:10:00 [facility] POC GLUCOSE 2021-11-17 22:11:00 [facility] POC GLUCOSE 2021-11-17 17:24:00 [facility] POC GLUCOSE 2021-11-17 13:15:00 [facility] ZZCOVID- ANTI-SPIKE IGG 2021-11-17 10:14:00 [facility] ANTIBODY TITER BASIC METABOLIC PANEL 2021-11-17 10:14:00 [facility] ZZCOVID-19 SEROLOGY PATIENT 2021-11-17 10:14:00 [facility] SURVEILLANCE ANTINUCLEAR ANTIBODIES (ANTONIO) 2021-11-17 10:14:00 [facility] WITH REFLEX TO TITER AND PATTERN, IMMUNOFLUORESCENCE SEDIMENTATION RATE 2021-11-17 10:14:00 [facility] ESTIMATED GFR 2021-11-17 10:14:00 [facility] POC GLUCOSE 2021-11-17 03:18:00 [facility] MRI LUMBAR SPINE WO CONTRAST 2021-11-17 02:05:00 [facility] CERVICAL SPINE WO 2021-11-17 01:40:00 [facility] CONTRAST MRI BRAIN WO CONTRAST 2021-11-17 01:25:00 [facility] URINE CULTURE 2021-11-17 00:15:00 [facility] URINALYSIS SCREEN AND 2021-11-16 22:47:00 [facility] MICROSCOPY, WITH REFLEX TO CULTURE COVID-19 QUALITATIVE RT-PCR 2021-11-16 17:56:00 [facility] CBC WITH PLATELET AND 2021-11-16 17:56:00 [facility] DIFFERENTIAL BASIC METABOLIC PANEL 2021-11-16 17:56:00 [facility] ESTIMATED GFR 2021-11-16 17:56:00 [facility] VITAMIN D 25 HYDROXY LEVEL 2021-11-16 17:56:00 [facility] VITAMIN B12 LEVEL 2021-11-16 17:56:00 [facility] FOLATE LEVEL 2021-11-16 17:56:00 [facility] [place] HOMOCYSTINE, PLASMA 2021-11-16 17:56:00 [facility] HEMOGLOBIN A1C 2021-11-16 17:56:00 [facility] THYROID STIMULATING HORMONE 2021-11-16 17:56:00 [facility] T4, FREE 2021-11-16 17:56:00 [facility] FERRITIN LEVEL 2021-11-16 17:56:00 [facility] TOTAL IRON BINDING CAPACITY 2021-11-16 17:56:00 [facility] RHEUMATOID FACTOR 2021-11-16 17:56:00 [facility] C-REACTIVE PROTEIN 2021-11-16 17:56:00 [facility] EMG 2021-10-14 19:05:17 [facility] POC GLUCOSE 2021-01-08 21:03:00 [facility] 2021-01-08 16:25:00 [facility]SE 2021-01-08 13:06:00 [facility] HC COMPLETE BLD COUNT W/AUTO 2021-01-08 10:11:00 [facility] DIFF BASIC METABOLIC PANEL 2021-01-08 10:11:00 [facility] MAGNESIUM LEVEL 2021-01-08 10:11:00 [facility] ESTIMATED GFR 2021-01-08 10:11:00 [facility] POC GLUCOSE 2021-01-08 01:16:00 [facility] 2021-01-07 21:30:00 [facility] POC GLU[facility]SE 2021-01-07 16:17:00 [facility]SE 2021-01-07 12:16:00 [facility] COMPLETE BLD COUNT W/AUTO 2021-01-07 08:04:00 [facility] DIFF BASIC METABOLIC PANEL 2021-01-07 08:04:00 [facility] MAGNESIUM LEVEL 2021-01-07 08:04:00 [facility] ESTIMATED GFR 2021-01-07 08:04:00 [facility] POC GLUCOSE 2021-01-07 01:37:00 [facility] P[facility]SE 2021-01-06 21:30:00 [facility] XR LUMBAR SPINE 2 OR 3 VW 2021-01-06 16:53:[address] [facility] POC GLUCOSE 2021-01-06 16:05:00 [facility] POC [facility]SE 2021-01-06 12:11:00 [facility] LACTIC ACID LEVEL, SEPSIS - 2021-01-06 11:10:00 [facility] NOW AND REPEAT 2X EVERY 3 Ryan HOURS TROPONIN 2021-01-06 11:10:00 [facility] POC GLUCOSE 2021-01-06 08:01:00 [facility] URINE CULTURE 2021-01-06 07:39:00 [facility] LACTIC ACID LEVEL, SEPSIS - 2021-01-06 07:35:00 [facility] NOW AND REPEAT 2X EVERY 3 Ryan HOURS HEMOGLOBIN A1C 2021-01-06 07:35:00 [facility] HC COMPLETE BLD COUNT W/AUTO 2021-01-06 07:35:00 [facility] DIFF BASIC METABOLIC PANEL 2021-01-06 07:35:00 [facility] ESTIMATED GFR 2021-01-06 07:35:00 [facility] POC GLUCOSE 2021-01-06 07:17:00 [facility] COVID-19 QUALITATIVE RT-PCR 2021-01-06 06:05:00 [facility] 2021-01-06 06:05:00 [facility] LACTIC ACID LEVEL 2021-01-06 04:42:[facility] 2021-01-06 04:16[facility] AND 2021-01-06 03:59:00 [facility] MICROSCOPY, WITH REFLEX TO [facility] CULTURE BLOOD CULTURE, AEROBIC & 2021-01-06 03:39:00 [facility] ANAEROBIC [facility] LACTIC ACID LEVEL, SEPSIS - 2021-01-06 03:38:00 [facility] NOW AND REPEAT 2X EVERY 3 [facility] HOURS XR CHEST 1 VW PORTABLE 2021-01-06 03:30:26 [facility] BLOOD CULTURE, AEROBIC & 2021-01-06 03:30:00 [facility] ANAEROBIC [facility] HC COMPLETE BLD COUNT W/AUTO 2021-01-06 03:20:00 [facility] DIFF [facility] PROTHROMBIN TIME WITH INR 2021-01-06 03:20:00 [facility] PARTIAL THROMBOPLASTIN TIME 2021-01-06 03:20:00 [facility] (PTT) [facility] COMPREHENSIVE METABOLIC 2021-01-06 03:20:00 [facility] PANEL [facility] LIPASE LEVEL 2021-01-06 03:20:00 [facility] TROPONIN 2021-01-06 03:20:00 [facility] B NATRIURETIC PEPTIDE 2021-01-06 03:20:00 [facility] THYROID STIMULATING HORMONE 2021-01-06 03:20:00 [facility] T4, FREE 2021-01-06 03:20:00 [facility] ESTIMATED GFR 2021-01-06 03:20:00 [facility] ECG 12-LEAD 2021-01-06 03:05:43 [facility] ECG ED PRELIMINARY 2021-01-06 03:05:10 [facility] INTERPRETATION Ryan IMMUNOGLOBULIN E 2020-11-27 17:10:00 Anish Ayoub [facility] HC COMPLETE BLD COUNT W/AUTO 2020-11-27 17:10:00 Liliane Ayoub [facility] DIFF SARS-COV2/INFLUENZA/RSV 2020-08-12 22:08:00 Vinicio Escobar [facility] RT-PCR [facility] BLOOD CULTURE 2020-08-12 22:08:00 [facility] W/PLT COUNT & AUTO 2020-08-12 22:08:00 [facility] DIFFERENTIAL [facility] LACTIC ACID, VENOUS 2020-08-12 22:08:00 Vinicio Escobar [facility] COMPREHENSIVE METABOLIC 2020-08-12 22:08:00 Vinicio Escobar [facility] PANEL [facility] PROTHROMBIN TIME/INR 2020-08-12 22:08:00 [facility] APTT 2020-08-12 22:08:00 [facility] B-TYPE NATRIURETIC FACTOR 2020-08-12 22:08:[address] [facility] (BNP) [facility] TROPONIN I 2020-08-12 22:08:00 Vinicio Escobar [facility] CBC W/PLT COUNT & AUTO 2020-08-12 22:08:00 [facility] DIFFERENTIAL [facility] ED ECG INTERPRETATION 2020-08-12 20:27:34 Arturo Lovett [facility] URINE CULTURE 2020-08-12 20:25:00 Arturo Lovett [facility] URINALYSIS W/ REFLEX URINE 2020-08-12 20:25:00 Arturo Lovett [facility] XR CHEST PA OR AP 1 VIEW IN 2020-08-12 19:22:00 Arturo Lovett [facility] REPORT OF PROCEDURE - 2020-08-12 00:00:00 Provider, Greg [facility] Sc[facility] Plan of Care Planned Activity Planned Date Details Comments Source Future Scheduled 2023-04-[address] [facility] Test 00:00:00 (Season Ended) [code = Medic al Center INFLUENZA VACCINE (Season Ended)] Future Scheduled 2023-04-[address] [facility] Test 00:00:00 (Season Ended) [code = Medic al Center INFLUENZA VACCINE (Season Ended)] Future Scheduled 2023-04-[address] [facility] Test 00:00:00 (Season Ended) [code = Medic al Center INFLUENZA VACCINE (Season Ended)] Future Scheduled 2022-12-28 65[facility] 02:49:36 VACCINE (1 - PCV) [code = 65+ PNEUMOCOCCAL VACCINE (1 - PCV)] Future Scheduled 2022-12-28 Hepatitis C screening [facility] Test 02:49:36 (procedure) [code = [id number]] Future Scheduled 2022-12-28 [facility] 02:49:36 SCREENING [code = BREAST CANCER SCREENING] Future Scheduled 2022-12-28 COLONOSCOPY SCREENING [facility] Test 02:49:36 [code = COLONOSCOPY SCREENING] Future Scheduled 2022-12-28 [facility]IN[facility] 02:49:36 of 2) [code = SHINGLES VACCINES (1 of 2)] Future Scheduled 2022-12-28 COVID-19 VACCINE (3 - [facility] Test 02:49:36 Booster for Pfizer series) [code = COVID-19 VACCINE (3 - Booster for Pfizer series)] Future Scheduled 2022-12-28 [facility]INE [facility] 02:49:36 [code = INFLUENZA VACCINE] Future Scheduled 2022-12-14 65+ [facility]AL [facility] 08:12:40 VACCINE (1 - PCV) [code = 65+ PNEUMOCOCCAL VACCINE (1 - PCV)] Future Scheduled 2022-12-[address] [facility] Test 08:12:40 (procedure) [code = [id number]] Future Scheduled 2022-12-14 [facility] Test 08:12:40 SCREENING [code = BREAST CANCER SCREENING] Future Scheduled 2022-12-14 COLONOSCOPY SCREENING [facility] Test 08:12:40 [code = COLONOSCOPY SCREENING] Future Scheduled 2022-12-14 SHINGLES VACCINES (1 Met [facility] Test 08:12:40 of 2) [code = SHINGLES VACCINES (1 of 2)] Future Scheduled 2022-12-14 COVID-19 VACCINE (3 - [facility] Test 08:12:40 Booster for Pfizer series) [code = COVID-19 VACCINE (3 - Booster for Pfizer series)] Future Scheduled 2022-12-14 [facility]INE [facility] 08:12:40 [code = INFLUENZA VACCINE] Future Scheduled 2022-12-14 65+ [facility]OCCAL [facility] 08:12:40 VACCINE (1 - PCV) [code = 65+ PNEUMOCOCCAL VACCINE (1 - PCV)] Future Scheduled 2022-12-14 Hepatitis C screening [facility] Test 08:12:40 (procedure) [code = [id number]] Future Scheduled 2022-12-14 [facility] Test 08:12:40 SCREENING [code = BREAST CANCER SCREENING] Future Scheduled 2022-12-14 COLONOSCOPY SCREENING [facility] Test 08:12:40 [code = COLONOSCOPY SCREENING] Future Scheduled 2022-12-14 SHINGLES VACCINES (1 Met [facility] Test 08:12:40 of 2) [code = SHINGLES VACCINES (1 of 2)] Future Scheduled 2022-12-14 COVID-19 VACCINE (3 - [facility] Test 08:12:40 Booster for Pfizer series) [code = COVID-19 VACCINE (3 - Booster for Pfizer series)] Future Scheduled 2022-12-14 INFLUENZA VACCINE [facility] Test 08:12:40 [code = INFLUENZA VACCINE] Future Scheduled 2022-08-[address] [facility] Test 00:00:00 (12+) [code = Medical Center DEPRESSION SCREENING (12+)] Future Scheduled 2022-08-07 FALLS RISK SCREENING [facility] Test 00:00:00 [code = FALLS RISK Medical C enter SCREENING] Future Scheduled 2022-08-[address] [facility] Test 00:00:00 (12+) [code = Medical Center DEPRESSION SCREENING (12+)] Future Scheduled 2022-08-07 FALLS RISK SCREENING [facility] Test 00:00:00 [code = FALLS RISK Medical C enter SCREENING] Future Scheduled 2022-08-[address] [facility] Test 00:00:00 (12+) [code = Medical Center DEPRESSION SCREENING (12+)] Future Scheduled 2022-08-07 FALLS RISK SCREENING [facility] Test 00:00:00 [code = FALLS RISK Medical C enter SCREENING] Future Scheduled 2022-08-[address] [facility] Test 00:00:00 (12+) [code = Medical Center DEPRESSION SCREENING (12+)] Future Scheduled 2022-08-07 FALLS RISK SCREENING [facility] Test 00:00:00 [code = FALLS RISK Medical C enter SCREENING] Future Scheduled 2022-07-20 65+ [facility]CCAL [facility] 15:03:40 VACCINE (1 - PCV) [code = 65+ PNEUMOCOCCAL VACCINE (1 - PCV)] Future Scheduled 2022-07-20 DIABETES: RETINAL EYE [facility] Test 15:03:40 EXAM [code = DIABETES: RETINAL EYE EXAM] Future Scheduled 2022-07-20 DIABETIC FOOT EXAM [facility] Test 15:03:40 [code = DIABETIC FOOT EXAM] Future Scheduled 2022-07-20 URINE MICROALBUMIN [facility] Test 15:03:40 [code = URINE MICROALBUMIN] Future Scheduled 2022-07-20 Hepatitis C screening [facility] Test 15:03:40 (procedure) [code = [id number]] Future Scheduled 2022-07-20 BREAST CANCER [facility] Test 15:03:40 SCREENING [code = BREAST CANCER SCREENING] Future Scheduled 2022-07-20 COLONOSCOPY SCREENING [facility] Test 15:03:40 [code = COLONOSCOPY SCREENING] Future Scheduled 2022-07-20 SHINGLES VACCINES (1 [facility] Test 15:03:40 of 2) [code = SHINGLES VACCINES (1 of 2)] Future Scheduled 2022-07-20 COVID-19 VACCINE (3 - [facility] Test 15:03:40 Booster for Pfizer series) [code = COVID-19 VACCINE (3 - Booster for Pfizer series)] Future Scheduled 2022-07-20 [facility]FL[facility]ZA [facility]ACCINE [facility] Test 15:03:40 [code = INFLUENZA VACCINE] Future Scheduled 2022-04-07 INFLUENZA VACCINE (#1[facility] [code = INFLUENZA Medical Ce nter VACCINE (#1)] Future Scheduled 2021-08-[address] [facility] Test 00:00:00 [facility]ing [facility] Medical Cente r Screening (12+) [code = Tobacco Cessation Counseling and Screening (12+)] Future Scheduled 2021-08-[address] [facility] Test 00:00:00 [facility] Scre[facility] (12+) [code = Tobacco Cessation Counseling and Screening (12+)] Future Scheduled 2021-08-[address] [facility] Test 00:00:00 [facility] Screening (12+) [code = Tobacco Cessation Counseling and Screening (12+)] Future Scheduled 2021-08-[address] [facility] Test 00:00:00 [facility] Screening (12+) [code = Tobacco Cessation Counseling and Screening (12+)] Future Scheduled 2021-04-07 INFLUENZA VACCINE (#1) [facility] 00:00:00 [code = INFLUENZA Medical Ce nter VACCINE (#1)] Future Scheduled 2021-04-07 INFLUENZA VACCINE (#1) [facility] 00:00:00 [code = INFLUENZA Medical Ce nter VACCINE (#1)] Future Scheduled 2021-04-07 INFLUENZA VACCINE (#1) [facility] 00:00:00 [code = INFLUENZA Medical Ce nter VACCINE (#1)] Future Scheduled 2020-08-[address] [facility] Test 00:00:00 (12+) [code = Medical Center DEPRESSION SCREENING (12+)] Future Scheduled 2020-08-07 FALLS RISK SCREENING [facility] Test 00:00:00 [code = FALLS RISK Medical C enter SCREENING] Future Scheduled 2020-08-[address] [facility] Test 00:00:00 (12+) [code = Medical Center DEPRESSION SCREENING (12+)] Future Scheduled 2020-08-07 FALLS RISK SCREENING [facility] Test 00:00:00 [code = FALLS RISK Medical C enter SCREENING] Future Scheduled 2020-08-[address] [facility] Test 00:00:00 (12+) [code = Medical Center DEPRESSION SCREENING (12+)] Future Scheduled 2020-08-07 FALLS RISK SCREENING [facility] Test 00:00:00 [code = FALLS RISK Medical C enter SCREENING] Future Scheduled 2013-02-[address] [facility] WELLNESS (YEAR 2 or Medical Center FIRST YEAR if no IPPE) [code = MEDICARE ANNUAL WELLNESS (YEAR 2 or FIRST YEAR if no IPPE)] Future Scheduled 2013-02-[address] [facility] 00:00:00 WELLNESS (YEAR 2 or Medical Center FIRST YEAR if no IPPE) [code = MEDICARE ANNUAL WELLNESS (YEAR 2 or FIRST YEAR if no IPPE)] Future Scheduled 2013-02-[address] [facility] 00:00:00 WELLNESS (YEAR 2 or Medical Center FIRST YEAR if no IPPE) [code = MEDICARE ANNUAL WELLNESS (YEAR 2 or FIRST YEAR if no IPPE)] Future Scheduled 2013-02-[address] [facility] 00:00:00 WELLNESS (YEAR 2 or Medical Center FIRST YEAR if no IPPE) [code = MEDICARE ANNUAL WELLNESS (YEAR 2 or FIRST YEAR if no IPPE)] Future Scheduled 2013-02-[address] [facility] 00:00:00 WELLNESS (YEAR 2 or Medical Center FIRST YEAR if no IPPE) [code = MEDICARE ANNUAL WELLNESS (YEAR 2 or FIRST YEAR if no IPPE)] Future Scheduled 2013-02-[address] [facility] 00:00:00 WELLNESS (YEAR 2 or Medical Center FIRST YEAR if no IPPE) [code = MEDICARE ANNUAL WELLNESS (YEAR 2 or FIRST YEAR if no IPPE)] Future Scheduled 2013-02-[address] [facility] 00:00:00 WELLNESS (YEAR 2 or Medical Center FIRST YEAR if no IPPE) [code = MEDICARE ANNUAL WELLNESS (YEAR 2 or FIRST YEAR if no IPPE)] Future Scheduled 2012 PNEUMOCOCCAL 65+ YRS [facility] Test 00:00:00 (1 - PCV) [code = Medical Ce nter PNEUMOCOCCAL 65+ YRS (1 - PCV)] Future Scheduled 2012 PNEUMOCOCCAL 65+ YRS [facility] Test 00:00:00 (1 of 1 - Medical Center [id number] [id number]) [code = PNEUMOCOCCAL 65+ YRS (1 of 1 - [id number] PCV13)] Future Scheduled 2012 PNEUMOCOCCAL 65+ YRS [facility] Test 00:00:00 (1 of 1 - Medical Center [id number] PCV13) [code = PNEUMOCOCCAL 65+ YRS (1 of 1 - [id number] [id number])] Future Scheduled 2012 PNEUMOCOCCAL 65+ YRS [facility] Test 00:00:00 (1 - PCV) [code = Medical Ce nter PNEUMOCOCCAL 65+ YRS (1 - PCV)] Future Scheduled 2012 PNEUMOCOCCAL 65+ YRS [facility] Test 00:00:00 (1 - PCV) [code = Medical Ce nter PNEUMOCOCCAL 65+ YRS (1 - PCV)] Future Scheduled 2012 PNEUMOCOCCAL 65+ YRS [facility] Test 00:00:00 (1 - PCV) [code = Medical Ce nter PNEUMOCOCCAL 65+ YRS (1 - PCV)] Future Scheduled 2012 PNEUMOCOCCAL 65+ YRS [facility] Test 00:00:00 (1 of 1 - Medical Center [id number] PCV13) [code = PNEUMOCOCCAL 65+ YRS (1 of 1 - [id number] [id number])] Future Scheduled 1997 SHINGLES VACCINES ([address] [facility] Test 00:00:00 of 2) [code = SHINGLES Medic al Center VACCINES (1 of 2)] Future Scheduled 1997 SHINGLES VACCINES ([address] [facility] Test 00:00:00 of 2) [code = SHINGLES Medic al Center VACCINES (1 of 2)] Future Scheduled 1997 SHINGLES VACCINES ([address] [facility] Test 00:00:00 of 2) [code = SHINGLES Medic al Center VACCINES (1 of 2)] Future Scheduled 1997 SHINGLES VACCINES ([address] [facility] Test 00:00:00 of 2) [code = SHINGLES Medic al Center VACCINES (1 of 2)] Future Scheduled 1997 SHINGLES VACCINES ([address] [facility] Test 00:00:00 of 2) [code = SHINGLES Medic al Center VACCINES (1 of 2)] Future Scheduled 1997 SHINGLES VACCINES ([address] [facility] Test 00:00:00 of 2) [code = SHINGLES Medic al Center VACCINES (1 of 2)] Future Scheduled 1997 SHINGLES VACCINES ([address] [facility] Test 00:00:00 of 2) [code = SHINGLES Medic al Center VACCINES (1 of 2)] Future Scheduled 1966 DTAP/TDAP/TD VACCINES [facility] 00:00:00 (1 - Tdap) [code = Medical C enter DTAP/TDAP/TD VACCINES (1 - Tdap)] Future Scheduled 1966 DTAP/TDAP/TD VACCINES [facility] 00:00:00 (1 - Tdap) [code = Medical C enter DTAP/TDAP/TD VACCINES (1 - Tdap)] Future Scheduled 1966 DTAP/TDAP/TD VACCINES [facility] 00:00:00 (1 - Tdap) [code = Medical C enter DTAP/TDAP/TD VACCINES (1 - Tdap)] Future Scheduled 1966 DTAP/TDAP/TD VACCINES [facility] 00:00:00 (1 - Tdap) [code = Medical C enter DTAP/TDAP/TD VACCINES (1 - Tdap)] Future Scheduled 1966 DTAP/TDAP/TD VACCINES [facility] 00:00:00 (1 - Tdap) [code = Medical C enter DTAP/TDAP/TD VACCINES (1 - Tdap)] Future Scheduled 1966 DTAP/TDAP/TD VACCINES [facility] 00:00:00 (1 - Tdap) [code = Medical C enter DTAP/TDAP/TD VACCINES (1 - Tdap)] Future Scheduled 1966 DTAP/TDAP/TD VACCINES [facility] 00:00:00 (1 - Tdap) [code = Medical C enter DTAP/TDAP/TD VACCINES (1 - Tdap)] Future Scheduled 1965 HEPATITIS C SCRE[facility]ING [facility] [code [facility] S[facility]] Future Scheduled 1965 HEPATITIS C [facility]CRE[facility] 00:[facility]:00 [code = HEPATITIS C [facility] Center SCREENING] Future Scheduled 1965 HEPATITIS C [facility] 00:[facility]:00 [code = HEPATITIS C [facility] Center SCREENING] Future Scheduled 1965 HEPATITIS C [facility] 00:[facility] [code = HEPATITIS C [facility] Center SCREENING] Future Scheduled 1965 HEPATITIS C [facility]ING [facility] 00:00:00 [code = HEPATITIS C Medical Center SCREENING] Future Scheduled 1965 HEPATITIS C [facility] 00:00:00 [code = HEPATITIS C Medical Center SCREENING] Future Scheduled 1965 HEPATITIS C [facility]CRE[facility]ING [facility] 00:[facility]:00 [code = HEPATITIS C Medical Center SCREENING] Future Scheduled 1959 COVID-19 VACCINE (1) [facility] 00:00:00 [code = COVID-[address] VACCINE (1)] Future Scheduled 1959 COVID-19 VACCINE (1) [facility] 00:00:00 [code = COVID-[address] VACCINE (1)] Future Scheduled 1959 COVID-19 VACCINE (1) [facility] 00:00:00 [code = COVID-[address] VACCINE (1)] Future Scheduled 1947 COVID-19 VACCINE (#1) [facility] 00:00:00 [code = COVID-[address] VACCINE (#1)] Future Scheduled 1947 COVID-19 VACCINE (#1) [facility] 00:00:00 [code = COVID-[address] VACCINE (#1)] Future Scheduled 1947 COVID-19 VACCINE (#1) [facility] 00:00:00 [code = COVID-[address] VACCINE (#1)] Future Scheduled 1947 COVID-19 VACCINE (#1) [facility] 00:[facility]:00 [code = COVID-[address] VACCINE (#1)] Future Scheduled [address] [facility]00 (combo) [code = CT Medical C enter Colonography (combo)] Future Scheduled [address] [facility] colon (procedure) [code = 337675717] Future Scheduled [address] [facility] colon (procedure) [code = 146999326] Future Scheduled 1947 DXA SCAN [code = DXA [facility] 00:00:00 SCAN] [facility] Future Scheduled [address] [facility]00 [facility] colon (procedure) [code = 980800264] Future Scheduled [address] [facility] 00:[facility]:00 [facility] colon (procedure) [code = 717230986] Future Scheduled 1947 Sigmoidoscopy [code = [facility] Sigmoidoscopy] [facility] Future Scheduled [address] [facility] 00:[facility]:00 [facility] breast (procedure) [code = 888501686] Future Scheduled [address] [facility] 00:[facility]:00 [facility] colon (procedure) [code = 337291111] Future Scheduled [address] [facility] 00:[facility]:00 [facility] breast (procedure) [code = 094157619] Future Scheduled [address] [facility] 00:[facility]:00 [facility] colon (procedure) [code = 302459158] Future Scheduled [address] [facility] 00:00:00 (combo) [code = CT Medical C enter Colonography (combo)] Future Scheduled [address] [facility] 00:[facility] colon (procedure) [code = 194425583] Future Scheduled [address] [facility] 00:[facility]:00 [facility] colon (procedure) [code = 824697786] Future Scheduled 1947 DXA SCAN [code = DXA [facility] 00:00:00 SCAN] [facility] Future Scheduled [address] [facility] 00:[facility]:00 [facility] colon (procedure) [code = 874607195] Future Scheduled [address] [facility] 00:00:00 [facility] colon (procedure) [code = 770921843] Future Scheduled 1947 Sigmoidoscopy [code = [facility] [address] [facility] 00:00:00 (combo) [code = CT Medical C enter Colonography (combo)] Future Scheduled [address] [facility] 00:[facility]:00 [facility] colon (procedure) [code = 958328870] Future Scheduled [address] [facility] 00:00:00 [facility] colon (procedure) [code = 991402360] Future Scheduled 1947 DXA SCAN [code = DXA [facility] 00:00:00 SCAN] [facility] Future Scheduled [address] [facility] 00:[facility]:00 [facility] colon (procedure) [code = 109800155] Future Scheduled [address] [facility] 00:00:00 [facility] colon (procedure) [code = 050085355] Future Scheduled 1947 Sigmoidoscopy [code = [facility] [address] [facility] 00:00:00 (combo) [code = CT Medical C enter Colonography (combo)] Future Scheduled [address] [facility] 00:[facility]:00 [facility] colon (procedure) [code = 901216990] Future Scheduled [address] [facility] 00:00:00 [facility] colon (procedure) [code = 863809248] Future Scheduled 1947 DXA SCAN [code = DXA [facility] 00:00:00 SCAN] [facility] Future Scheduled [address] [facility] 00:[facility]:00 [facility] colon (procedure) [code = 342775029] Future Scheduled [address] [facility] 00[facility]00 [facility] [code = 840952064] Future Scheduled 1947 Sigmoidoscopy [code = [facility] Sigmoidoscopy] Medical Nataliya r Future Scheduled [address] [facility]00 [facility] breast (procedure) [code = 740063768] Future Scheduled [address] [facility] 00[facility]00 [facility] colon (procedure) [code = 012047964] Future Scheduled 65[facility] VACCINE (1 of 2 - PPSV23) [code = 65+ PNEUMOCOCCAL VACCINE (1 of 2 - PPSV23)] Future Scheduled DIABETES: RETINAL EYE [facility] EXAM [code = DIABETES: RETINAL EYE EXAM] Future Scheduled DIABETIC FOOT EXAM [facility] [code = DIABETIC FOOT EXAM] Future Scheduled URINE MICROALBUMIN [facility] [code = URINE MICROALBUMIN] Future Scheduled Hepatitis C screening [facility] Test (procedure) [code = 740678896] Future Scheduled BREAST CANCER [facility] SCREENING [code = BREAST CANCER SCREENING] Future Scheduled COLONOSCOPY [facility]CRE[facility]ING [facility] [code = COLONOSCOPY SCREENING] Future Scheduled SHINGLES [facility]INES (#[facility] [code = SHINGLES VACCINES (#1)] Future Scheduled COVID-19 VACCINE (2 - [facility] Pfizer 2-dose series) [code = COVID-19 VACCINE (2 - Pfizer 2-dose series)] Future Scheduled [facility] [code = INFLUENZA VACCINE] Encounters Start End Encounter Admission Attending Care Care Encounter Source Date/Time Date/Time Type Type Clinicians Facility Department ID 2022-04-09 Outpatient 3 [id number] ENCS[facility] REF [id number] [facility] 12:58:28 10574 [facility] [place] 2020-10-11 Inpatient Esther Faust [facility] H[facility] [id number] [facility] 11:00:32 81 [facility] 2022-12-27 2022-12-28 Emergency ER CATANESCU, [facility] [id number] [place] 21:00:00 09:50:00 RAFFI -[id number] [facility] 2022-12-27 2022-12-28 emergency [id number] 21:00:00 09:50:00 [id number] 2022-11-23 2022-11-23 Outpatient NEW ARTURO RICHARDSON ENCCLR ENCCLR [id number] ENCCLR 00:00:00 00:00:00 ADMISSION 2022-11-03 2022-11-19 Inpatient 3 ARTURO RICHARDSON ENCSL PIETER [id number] [facility] 17:55:00 15:55:00 80512 [facility] [place] 2022-11-01 2022-11-03 [facility] Bony Arturomiles Castellano 1.2.840.1 1 [id number] Methodi 17:44:00 17:40:00 Encounter Regulo Cox 77703.1.1 027 [facility] 3.430.2.7 [facility]osp[facility] K[facility] Daniel .3.203201 l .8 2022-11-01 2022-11-03 [facility] Arturo Lovett Nona 1.2.840.1 1 [id number] Methodi 17:44:00 17:40:00 Encounter Regulo Cox 41426.1.[address] [facility] 3.430.2.7 Hospita Kareem Daniel .3.176423 l .8 2022-11-01 2022-11-01 Travel 1.2.840.1 1.2.371.217 2742 474334 Methodi 00:00:00 00:00:[address] 3.430.2.7 0.2.7.3.698 Ho spita .3.459249 084.8 l .8 2022-11-01 2022-11-01 Travel 1.2.840.1 1.2.116.586 6785 348594 Methodi 00:00:00 00:00:[address] 3.430.2.7 0.2.7.3.698 [facility] .3.861768 084.8 l .8 2022-08-29 2022-09-09 Inpatient 3 [place] [id number] [facility] 19:33:00 12:53:00 10624 [facility] [place] 2022-07-06 2022-07-06 [facility] [id number] 022 [place] 00:00:00 00:00:00 [facility] 2022-06-01 2022-06-01 [facility]patient [facility] [id number] 022 [place] 00:00:00 00:00:00 [facility] 2022-04-12 2022-04-28 Inpatient 3 [facility] [id number] [facility] 18:50:00 12:50:00 21844 Health Rehabil [facility]ation [place] 2022-04-27 2022-04-27 [facility]patient [facility] [id number] 022 [place] 00:00:00 00:00:00 0921 Medical Group 2022-04-07 2022-04-12 [facility] Jae Garza 1.2.840.1 104 [id number] Methodi 21:14:00 18:45:00 Encounter Regulo Cox 52472.1.1 715 [facility] Jordan .3.276432 l Maggy Chapin Jia .8 2022-04-07 2022-04-12 [facility] Jae Garza 1.2.840.1 104 [id number] Methodi 21:14:00 18:45:00 Encounter Regulo Cox 36530.1.1 715 [facility] Rasheed Jordan .3.939660 l Hayley Chapina Jia .8 2022-04-09 2022-04-09 Travel 1.2.840.1 1.2.056.934 1927 [id number] Methodi 00:00:00 00:00:[address] 3.430.2.7 0.2.7.3.698 Ho spita .3.809999 084.8 l .8 2022-04-09 2022-04-09 Travel 1.2.840.1 1.2.404.309 9748 913802 Methodi 00:00:00 00:00:[address] 3.430.2.7 0.2.7.3.698 Ho spita .3.381016 084.8 l .8 2022-04-07 2022-04-07 Travel 1.2.840.1 1.2.243.442 4428 037881 Methodi 00:00:00 00:00:[address] 3.430.2.7 0.2.7.3.698 Ho spita .3.402660 084.8 l .8 2022-04-07 2022-04-07 Travel 1.2.840.1 1.2.413.921 2983 081723 Methodi 00:00:00 00:00:[address] 3.430.2.7 0.2.7.3.698 Ho spita .3.362097 084.8 l .8 2022-03-28 2022-04-01 Inpatient ER [facility] [id number] [place] 17:02:00 17:28:00 SEAN [id number] [facility] 2022-03-15 2022-03-15 Emergency ER [facility]RA[facility] D000 [id number] [place] 20:05:00 23:26:00 ANGELITO -[id number] [facility] 2022-03-04 2022-03-04 Office García 1.2.840.1 [id number] Methodi 13:40:00 15:14:20 Visit Eduardo 64617.1.[address] [place] 3.430.2.7 Hospit a .3.937694 l .8 2022-03-04 2022-03-04 Office García 1.2.840.1 [id number] 3093 Methodi 13:40:00 15:14:20 Visit Eduardo 94873.1.[address] [place] 3.430.2.7 Hospit a .3.586993 l .8 2022-03-04 2022-03-04 Travel 1.2.840.1 1.2.354.513 4929 272897 Methodi 00:00:00 00:00:[address] 3.430.2.7 0.2.7.3.698 Ho spita .3.675422 084.8 l .8 2022-03-04 2022-03-04 [facility] [id number] 259 [place] 00:00:00 00:00:00 EDUARD[address] 2022-03-04 2022-03-04 Travel 1.2.840.1 1.2.740.929 5057 462880 Methodi 00:00:00 00:00:[address] 3.430.2.7 0.2.7.3.698 Ho spita .3.417555 084.8 l .8 2022-01-12 2022-01-12 Telephone Kathya 1.2.840.1 [id number] 2099 [id number] Methodi 00:00:00 00:00:00 [address]ab[address] 3.430.2.7 Hospit a .3.010238 l .8 2022-01-12 2022-01-12 Travel 1.2.840.1 1.2.566.366 0172 664618 Methodi 00:00:00 00:00:[address] 3.430.2.7 0.2.7.3.698 Ho spita .3.754707 084.8 l .8 2022-01-12 2022-01-12 Travel 1.2.840.1 1.2.027.958 4091 026681 Methodi 00:00:00 00:00:[address] 3.430.2.7 0.2.7.3.698 Ho spita .3.511672 084.8 l .8 2022-01-12 2022-01-12 Telephone [facility], 1.2.840.1 [id number] 2099 [id number] Methodi 00:00:00 00:00:[address] 3.430.2.7 Hospit a .3.497676 l .8 2022-01-11 2022-01-11 Telephone [facility], 1.2.840.1 [id number] 455 [id number] Methodi 11:00:00 11:30:00 Consult Kurtammajona 33118.1.[address] [place] 3.430.2.7 Hospit a .3.621599 l .8 2022-01-11 2022-01-11 Telephone [facility], 1.2.840.1 [id number] 800 [id number] Methodi 11:00:00 11:30:00 Consult Kurtammajona 94268.1.[address] [place] 3.430.2.7 Hospit a .3.888012 l .8 2022-01-10 2022-01-10 Travel 1.2.840.1 1.2.562.405 2171 189968 Methodi 00:00:00 00:00:[address] 3.430.2.7 0.2.7.3.698 Ho spita .3.646180 084.8 l .8 2022-01-10 2022-01-10 Travel 1.2.840.1 1.2.892.337 5177 291162 Methodi 00:00:00 00:00:[address] 3.430.2.7 0.2.7.3.698 Ho spita .3.646277 084.8 l .8 2021-12-30 2021-12-30 Travel 1.2.840.1 1.2.349.823 2925 546761 Methodi 00:00:00 00:00:[address] 3.430.2.7 0.2.7.3.698 Ho spita .3.480369 084.8 l .8 2021-12-30 2021-12-30 Travel 1.2.840.1 1.2.294.833 3187 098811 Methodi 00:00:00 00:00:[address] 3.430.2.7 0.2.7.3.698 Ho spita .3.259275 084.8 l .8 2021-11-16 2021-11-22 [facility] 1.2.840.1 [id number] 2 [id number] Methodi 12:26:00 21:29:00 Encounter Jonnathan 32186.1.[address] 3.430.2.7 Hospit a .3.220486 l .8 2021-11-18 2021-11-18 Telephone Mari, 1.2.840.1 [id number] 2099 [id number] Methodi 00:00:00 00:00:[address] 3.430.2.7 Hospit a .3.794277 l .8 2021-11-16 2021-11-16 Travel 1.2.840.1 1.2.670.128 4933 478222 Methodi 00:00:00 00:00:[address] 3.430.2.7 0.2.7.3.698 Ho spita .3.498687 084.8 l .8 2021-11-15 2021-11-15 Telephone Rasheed, 1.2.840.1 [id number] 2099 [id number] Methodi 00:00:00 00:00:00 [address].1[address] 3.430.2.7 Hospit a .3.019080 l .8 2021-11-10 2021-11-10 Telephone Alem, 1.2.840.1 [id number] 134 [id number] Methodi 14:30:00 15:21:12 Consult Rochelle 06420.1.[address] [place] 3.430.2.7 Hospit a .3.275895 l .8 2021-11-09 2021-11-10 Emergency ER VINCE JEFFRIES [facility] D000 [id number] [facility] 01:42:00 -[id number] [facility] 2021-11-10 2021-11-10 Travel 1.2.840.1 1.2.703.484 5382 767042 Methodi 00:00:00 00:00:[address] 3.430.2.7 0.2.7.3.698 Ho spita .3.706802 084.8 l .8 2021-11-10 2021-11-10 Telephone Lucy, 1.2.840.1 [id number] 2099 [id number] Methodi 00:00:00 00:00:[address] 3.430.2.7 Hospit a .3.359505 l .8 2021-10-14 2021-10-14 Office Alem, 1.2.840.1 [id number] 63914 11235 Methodi 14:30:00 15:25:25 Visit Rochelle 97869.1.[address] [place] 3.430.2.7 Hospit a .3.770098 l .8 2021-10-14 2021-10-14 Outpatient [facility] [id number] 6245 [place] 00:00:00 00:00:00 ROCHELLE [address] 2021-10-14 2021-10-14 Outpatient [facility] [id number] [place] 00:00:00 00:00:[address] 2021-10-14 2021-10-14 Travel 1.2.840.1 1.2.649.842 1671 697679 Methodi 00:00:00 00:00:[address] 3.430.2.7 0.2.7.3.698 Ho spita .3.563688 084.8 l .8 2021-10-13 2021-10-13 Travel 1.2.840.1 1.2.767.356 4393 358107 Methodi 00:00:00 00:00:[address] 3.430.2.7 0.2.7.3.698 Ho spita .3.194866 084.8 l .8 2021-10-06 2021-10-06 Telephone Rasheed, 1.2.840.1 [id number] 2099 [id number] Methodi 00:00:00 00:00:00 [address] Caraballo [address] 3.430.2.7 Hospit a .3.331170 l .8 2021-10-06 2021-10-06 Travel 1.2.840.1 1.2.240.621 0686 539829 Methodi 00:00:00 00:00:[address] 3.430.2.7 0.2.7.3.698 Ho spita .3.418845 084.8 l .8 2021-10-04 2021-10-04 Telephone [facility], 1.2.840.1 [id number] 386 [id number] Methodi 13:30:00 14:20:16 Consult Rochelle 75940.1.[address] [place] 3.430.2.7 Hospit a .3.318746 l .8 2021-10-04 2021-10-04 Travel 1.2.840.1 1.2.704.902 2316 086077 Methodi 00:00:00 00:00:[address] 3.430.2.7 0.2.7.3.698 Ho spita .3.240672 084.8 l .8 2021-09-03 2021-09-03 Telephone Aishwarya Ayala.2.840.1 [id number] 2100 232095 Methodi 00:00:00 00:00:[address] 3.430.2.7 Hospit a .3.568873 l .8 2021-09-01 2021-09-01 Outpatient AMBREEN_FAR [facility] 774 74 [place] 10:58:00 10:58:00 TIRSO 0126 [facility] 2021-08-27 2021-08-27 Emergency ER MARIAH [facility] [id number] [place] 16:41:00 18:27:00 [id number] [facility] 2021-08-19 2021-08-19 Outpatient [facility] [id number] 382 [place] 00:00:00 00:00:[address] 2021-06-25 2021-06-25 Outpatient GARCÍA, [facility] [id number] 739 [place] 00:00:00 00:00:00 EDUARDO [address] 2021-06-25 2021-06-25 Outpatient GARCÍA, [facility] [id number] 332 [place] 00:00:00 00:00:00 EDUARDO [address] 2021-06-25 2021-06-25 Outpatient GARCÍA, [facility] [id number] 333 [place] 00:00:00 00:00:00 EDUARDO [address] 2021-06-04 2021-06-04 Outpatient NAKAWA, [facility] [id number] 1048 [place] 00:00:00 00:00:00 ROCHELLE [address] 2021-05-09 2021-05-10 Inpatient ER [facility] [id number] [place] 02:10:00 17:55:00 ROCHELLE -[id number] [facility] 2021-04-22 2021-04-22 Emergency ER SUZE TOKS [facility] [id number] [place] 12:44:00 15:45:00 -[id number] [facility] 2021-04-08 2021-04-08 Outpatient JOSE COLBERT [facility] D00 [id number] [place] 15:16:00 15:16:00 -[id number] [facility] 2021-03-25 2021-03-25 Outpatient JOSE COLBERT [facility] D00 [id number] [place] 12:11:00 12:11:00 -[id number] [facility] 2021-03-18 2021-03-18 Outpatient JOSE COLBERT [facility] D00 [id number] [place] 13:13:00 13:13:00 -[id number] [facility] 2021-02-22 2021-02-23 Inpatient ER [facility]E [facility] [id number] [place] 16:17:00 16:25:00 [id number] 2021-02-18 2021-02-18 Emergency TR RY ARCINIEGA [facility] [id number] [place] 10:11:00 12:45:00 -[id number] [facility] 2021-01-05 2021[facility]01-08 [facility] 1.2.840 .1 [id number] Methodi 21:56:00 20:02:00 Encounter Jose Arteaga Sirjanj 31984.1.[address] 3.430.2.7 Hospit a .3.251855 l .8 2021-01-05 2021-01-05 Travel 1.2.840.1 1.2.250.879 4174 [id number] Methodi 00:00:00 00:00:[address] 3.430.2.7 0.2.7.3.698 Ho spita .3.033474 084.8 l .8 2021-01-02 2021-01-02 Emergency ER BA, KAM [facility] [id number] [place] 04:36:00 07:50:00 -[id number] [facility] 2020-12-15 2020-12-15 Emergency ER YVONNE, [facility] [id number] [place] 00:31:00 03:12:00 [facility] -[id number] [facility] 2020-11-27 2020-11-27 Clinical 1.2.840.1 [id number] Methodi 14:04:19 14:13:[address] 3.430.2.7 Hospit a .3.758386 l .8 2020-11-27 2020-11-27 Travel 1.2.840.1 1.2.769.540 8246 816045 Methodi 00:00:00 00:00:[address] 3.430.2.7 0.2.7.3.698 Ho spita .3.433557 084.8 l .8 2020-11-19 2020-11-19 Refill [facility], 1.2.840.1 [id number] 34712 Methodi 00:00:00 00:00:[address] [place] 3.430.2.7 Hospit a .3.337645 l .8 2020-08-27 2020-08-27 Office [facility], 1.2.840.1 [id number] Methodi 11:09:02 12:37:37 Visit Rochelle 51466.1.[address] [place] 3.430.2.7 Hospit a .3.064214 l .8 2020-08-27 2020-08-27 Travel 1.2.840.1 1.2.231.347 0391 [id number] Methodi 00:00:00 00:00:[address] 3.430.2.7 0.2.7.3.698 Ho spita .3.272683 084.8 l .8 2020-08-26 2020-08-26 Travel 1.2.840.1 1.2.848.896 2859 449005 Methodi 00:00:00 00:00:[address] 3.430.2.7 0.2.7.3.698 Ho spita .3.657639 084.8 l .8 2020-08-12 2020-08-13 Emergency ER Bony [facility] [id number] [facility] 21:36:00 02:23:00 Arturo Nona [facility] 2020-08-12 2020-08-12 Emergency ER [facility] Emergency [id number] [facility] 18:41:00 18:41:00 2020-08-12 2020-08-12 [facility] [id number] [facility] 00:00:00 00:00:00 [facility] 2020-07-09 2020-07-09 Outpatient EL ESTHER DRAKE [facility] [id number] [place] 08:26:00 08:26:00 -[id number] [facility] 2020-04-23 2020-04-23 Emergency ER [facility] Emergency [id number] [facility] 11:57:00 11:57:00 2020-04-15 2020-04-15 Outpatient Esther Drake [facility] [id number] [facility] 13:00:00 13:00:[address] [place] [address] 2020-04-06 2020-04-06 Outpatient EL [facility] [id number] [facility] 00:00:00 00:00:00 2019-09-24 2019-09-24 Outpatient EL CHANDLER JOSSUEAZAR [facility] [id number] [place] 14:13:00 14:13:00 -[id number] [facility] 2018-09-05 2018-09-05 Emergency TR BARBRAArabella [facility] [id number] [place] 18:18:00 20:13:00 KIKI -[id number] [facility] 2018-06-14 2018-06-14 Emergency ER RY ARCINIEGA [facility] [id number] [place] 17:55:00 19:13:00 -[id number] [facility] 2018-05-16 2018-05-16 Outpatient NERET MM MMG [id number] [place] 04:39:00 04:39:00 [facility] 2018-05-10 2018-05-10 Emergency TR OWORY [facility] [id number] [place] 13:48:00 17:20:00 -[id number] [facility] 2017-12-05 2017-12-05 Outpatient AMBREEN_KELLY NMHOP [facility] [id number] [place] 09:36:00 09:36:00 TIRSO 0501 [facility] 2017-10-30 2017-10-30 Outpatient EL Neret, [facility] [id number] [place] 14:07:00 14:07:00 Rasheed -[id number] [facility] 2017-04-13 2017-04-13 Emergency ER OWOADRIANS [facility] [id number] [place] 11:47:00 15:07:00 -[id number] [facility] 2016-10-17 2016-10-17 Emergency ER [facility] [id number] [place] 17:27:00 21:25:00 JOHN -[id number] [facility] 2016-07-22 2016-07-22 Outpatient EL Neret, [facility] [id number] [place] 18:26:00 18:26:00 Rasheed [id number] [facility] 2015-10-27 2015-10-27 [facility] [id number] [place] 15:38:00 15:38:00 Rasheed [id number] [facility] 2015-06-17 2015-06-17 Outpatient EL TY, ESTHER [facility] [id number] [place] 09:56:00 09:56:00 -[id number] [facility] 2015-02-26 2015-02-26 Outpatient EL TY, ESTHER [facility] [id number] [place] 12:15:00 12:15:00 -[id number] [facility] 2014-10-05 2014-10-05 Emergency ER SERENA, [facility] [id number] [place] 15:00:00 16:40:00 NATA -[id number] [facility] 2014-10-01 2014-10-01 Emergency ER ASHKAN, [facility] [id number] [place] 10:19:00 13:09:00 [facility] -[id number] [facility] 2013-08-31 2013-08-31 Emergency ER UGORMANJIT, [facility] [id number] [place] 17:44:00 19:14:00 SIDRA -[id number] [facility] 2013-08-29 2013-08-29 Outpatient EL PEGGS, [facility] [id number] [place] 06:33:00 06:33:00 RASHEED [id number] [facility] 2013-07-11 2013-07-11 Outpatient EL PEGGS, [facility] [id number] [place] 07:11:00 07:11:00 RASHEED [id number] [facility] 2013-06-17 2013-06-17 Outpatient EL MASCORRO, [facility] [id number] [place] 07:45:00 07:45:00 [id number] [facility] 2009-04-14 2009-04-14 Outpatient VITA RAPP, [facility] [id number] [place] 07:53:00 07:53:00 ALYSHA -[id number] [facility] 2009-02-12 2009-02-12 Emergency ER IMMARAJ, [facility] [id number] [place] 12:46:00 15:30:00 NEREIDA -[id number] d [facility] 2007-10-09 2007-10-09 Outpatient VITA RAPP, [facility] [id number] [place] 07:09:00 07:09:00 ALYSHA -[id number] [facility] 2003-08-20 2003-08-20 Emergency ER UGORJI, [facility] [id number] [place] 19:31:00 21:30:00 SIDRA [id number] [facility] 2002-09-24 2002-09-25 Emergency ER KIA, [facility] [id number] [place] 20:37:00 01:57:00 SHAWANDA [id number] [facility] 1999-10-27 1999-10-27 Outpatient VITA JOEL [facility] [id number] [place] 14:32:00 14:32:00 LIAT -[id number] [facility] 1999-10-23 1999-10-23 Emergency ER GANESH, [facility] [id number] [place] 13:01:00 14:55:00 [id number] [facility] 1999-06-14 1999-06-14 Outpatient VITA JOEL, [facility] [id number] [place] 08:11:00 08:11:00 [id number] [facility] Results Test Description Test Time Test Comments Results Result Comments Source POC glucose 2022-11-03 16:50:00 Test Item Value Reference Range Interpretation Comme nts POC glucose (test code = 209 mg/dL 65-99 H Ope rator Name: Franklyn Hernandezvikasarabella 05898-0) ID: [id number] hartable: RN Notified Lab Interpretation (test code = Abnormal 08860-0) [facility][1]2023-03-30 16:50:00 Test Item Value Reference Range Interpretation Comments POC glucose (test code 209 mg/dL 65-99 H Opera tor Name: = 39389-6) Franklyn Mistrytal Device ID: [id number] able: RN Notified Lab Interpretation Abnormal (test code = 20399-1) [facility][1]2023-03-30 16:50:00 Test Item Value Reference Range Interpretation Comments POC glucose (test code 209 mg/dL 65-99 H Opera tor Name: = 20746-1) Franklyn Mistrytal Device ID: [id number] able: RN Notified Lab Interpretation Abnormal (test code = 04359-8) [facility] 12 [id number] 04:27:47 Test Item Value Reference Range Interpretation Comments Ventricular rate (test 65 code = 253) QRSD interval (test 94 code = 260) QT interval (test code 422 = 264) QTC interval (test code 438 = 265) QRS axis 1 (test code = -54 268) T wave axis (test code 135 = 270) EKG impression (test Sinus rhythm-Left axis code = 273) deviation-Anteroseptal infarct , age undetermined-Abnormal ECG-In automated comparison with ECG of 08-APR-2022 00:47,-Significant changes have occurred-Electronicall y Signed By Phillip Long MD ([id number]) on 11/02/2022 11:27:45 PM [facility] 12 [id number] 04:27:47 Test Item Value Reference Range Interpretation Comments Ventricular rate (test 65 code = 253) QRSD interval (test 94 code = 260) QT interval (test code 422 = 264) QTC interval (test code 438 = 265) QRS axis 1 (test code = -54 268) T wave axis (test code 135 = 270) EKG impression (test Sinus rhythm-Left axis code = 273) deviation-Anteroseptal infarct , age undetermined-Abnormal ECG-In automated comparison with ECG of 08-APR-2022 00:47,-Significant changes have occurred-Electronicall y Signed By Phillip Long MD ([id number]) on 11/02/2022 11:27:45 PM [facility] 12 [id number] 04:27:47 Test Item Value Reference Range Interpretation Comments Ventricular rate (test 65 code = 253) QRSD interval (test 94 code = 260) QT interval (test code 422 = 264) QTC interval (test code 438 = 265) QRS axis 1 (test code = -54 268) T wave axis (test code 135 = 270) EKG impression (test Sinus rhythm-Left axis code = 273) deviation-Anteroseptal infarct , age undetermined-Abnormal ECG-In automated comparison with ECG of 08-APR-2022 00:47,-Significant changes have occurred-Electronicall y Signed By Phillip Long MD ([id number]) on 11/02/2022 11:27:45 PM [facility] ED Preliminary Interpretation - Not an [id number] 23:07:52 Test Item Value Reference Range Interpretation Comments YOANNA (test code = YOANNA) Arturo Lovett MD 11/02/2022 2:27 [facility] ED Preliminary Interpretation - Not an OrderPerformed by: Arturo Lovett MDAuthorized by: Arturo Lovett MD ECG reviewed by ED Physician in the absence of a armhole sewer: yes Previous ECG: Previous ECG: UnavailableInterpretat ion: Interpretation: abnormal Rate: ECG rate: 72 ECG rate assessment: normal Rhythm: Rhythm: sinus rhythm QRS: QRS axis: LeftConduction: Conduction: normal ST segments: ST segments: NormalOther findings: Other findings: LVH Comments: Anteroseptal infarct, age undetermined. Lab Interpretation Abnormal (test code = 81415-2) [facility] Preliminary Interpretation - Not an [id number] 23:07:52 Test Item Value Reference Range Interpretation Comments YOANNA (test code = YOANNA) Arturo Lovett MD 11/02/2022 2:27 [facility] Preliminary Interpretation - Not an OrderPerformed by: Arturo Lovett MDAuthorized by: Arturo Lovett MD ECG reviewed by ED Physician in the absence of a armhole sewer: yes Previous ECG: Previous ECG: UnavailableInterpretat ion: Interpretation: abnormal Rate: ECG rate: 72 ECG rate assessment: normal Rhythm: Rhythm: sinus rhythm QRS: QRS axis: LeftConduction: Conduction: normal ST segments: ST segments: NormalOther findings: Other findings: LVH Comments: Anteroseptal infarct, age undetermined. Lab Interpretation Abnormal (test code = 13679-4) [facility] Preliminary Interpretation - Not an [id number] 23:07:52 Test Item Value Reference Range Interpretation Comments YOANNA (test code = YOANNA) Arturo Lovett MD 11/02/2022 2:27 [facility] ED Preliminary Interpretation - Not an OrderPerformed by: Arturo Lovett MDAuthorized by: Arturo Lovett MD ECG reviewed by ED Physician in the absence of a armhole sewer: yes Previous ECG: Previous ECG: UnavailableInterpretat ion: Interpretation: abnormal Rate: ECG rate: 72 ECG rate assessment: normal Rhythm: Rhythm: sinus rhythm QRS: QRS axis: LeftConduction: Conduction: normal ST segments: ST segments: NormalOther findings: Other findings: LVH Comments: Anteroseptal infarct, age undetermined. Lab Interpretation Abnormal (test code = 07724-4) [facility] [Presence] in Respiratory specimen by RABIA with probe [id number] 22:40:26 Test Item Value Reference Range Interpretation Comments SARS-CoV-2 (COVID-19) RNA Not detected [Presence] in Respiratory specimen by RABIA with probe detection (test code = 24908-1) Whether patient is employed in a Unknown healthcare setting (test code = 25488-3) Whether the patient has symptoms Unknown related to condition of interest (test code = 99882-7) Whether the patient was Unknown hospitalized for condition of interest (test code = 60452-1) Whether the patient was admitted Unknown to intensive care unit (ICU) for condition of interest (test code = 32907-9) Whether patient resides in a Unknown congregate care setting (test code = 25169-1) status (test code = Unknown 06347-3) Date and time of symptom onset Unknown (test code = 00238-9) [facility] [id number] 22:49:00 Test Item Value Reference Range Interpretation Comments POC glucose (test code = 137 mg/dL 65-99 H Ope rator Name: [id number]) [place] Twanta~Device I D: [id number]~Kaylee tabl e: RN Notified Lab Interpretation (test Abnormal code = 84520-9) [facility]2022-09-03 20:47:00 Test Item Value Reference Range Interpretation Comments Urine culture Mixed fernandez Specimen isolate (test 10-4 col/cc InformationSpe cimen code = 18774-8) Source: [facility] Site: [facility]2022-09-03 20:47:00 Test Item Value Reference Range Interpretation Comments Urine culture Mixed fernandez Specimen isolate (test 10-4 col/cc InformationSpe cimen code = 63085-6) Source: [facility] Site: [facility] [id number] 20:47:00 Test Item Value Reference Range Interpretation Comments Urine culture Mixed fernandez Specimen isolate (test 10-4 col/cc InformationSpe cimen code = 38517-0) Source: [facility] Site: [facility]2022-09-03 20:47:00 Test Item Value Reference Range Interpretation Comments Urine culture Mixed fernandez Specimen isolate (test 10-4 col/cc InformationSpe cimen code = 85012-2) Source: [facility] Site: [facility] 12 [id number] 13:08:33 Test Item Value Reference Range Interpretation Comments Ventricular rate (test code = 253) Atrial rate (test code = 255) MD interval (test code = 266) QRSD interval (test code = 260) QT interval (test code = 264) QTC interval (test code = 265) P axis 1 (test code = 267) QRS axis 1 (test code = 268) T wave axis (test code = 270) EKG impression (test Sinus code = 273) bradycardia-Otherwise normal ECG-In automated comparison with ECG of 08-APR-2022 00:40,-Sinus rhythm has replaced Junctional rhythm-Criteria for Septal infarct are no longer present-ST no longer depressed in Inferior leads-Nonspecific T wave abnormality, improved in Inferior leads-Nonspecific T wave abnormality no longer evident in Lateral leads- [facility] RNA [Presence] in Respiratory specimen by RABIA with probe [id number] 08:20:48 Test Item Value Reference Range Interpretation Comments SARS-CoV-2 (COVID-19) RNA [Presence] Detected in Respiratory specimen by RABIA with probe detection (test code = 08220-6) Whether patient is employed in a Unknown healthcare setting (test code = 79364-6) Whether the patient has symptoms Unknown related to condition of interest (test code = 35628-9) Whether the patient was hospitalized Unknown for condition of interest (test code = 79074-2) Whether the patient was admitted to Unknown intensive care unit (ICU) for condition of interest (test code = 54653-8) Whether patient resides in a Unknown congregate care setting (test code = 72069-4) status (test code = Unknown 74913-7) Date and time of symptom onset (test Unknown code = 97036-5) [facility] ED Preliminary Interpretation - Not an [id number] 07:37:31 Test Item Value Reference Range Interpretation Comments YOANNA (test code = YOANNA) Jae Garza MD 04/08/2022 3:15 [facility] ED Preliminary Interpretation - Not an OrderPerformed by: Jae Garza MDAuthorized by: Jae Garza MD ECG reviewed by ED Physician in the absence of a armhole sewer: yes Interpretation: Interpretation: abnormal Rate: ECG rate: 73 ECG rate assessment: normal Rhythm: Rhythm: sinus rhythm Ectopy: Ectopy: none QRS: QRS axis: Normal QRS intervals: NormalConduction: Conduction: abnormal Abnormal conduction: LAFB ST segments: ST segments: Non-specificT waves: T waves: non-specific Lab Interpretation Abnormal (test code = 16916-7) [facility] RNA [Presence] in Respiratory specimen by RABIA with probe [id number] 17:42:18 Test Item Value Reference Range Interpretation Comments SARS-CoV-2 (COVID-19) RNA Not detected [Presence] in Respiratory specimen by RABIA with probe detection (test code = 78943-0) Whether patient is employed in a Unknown healthcare setting (test code = 02368-1) Whether the patient has symptoms Unknown related to condition of interest (test code = 25133-7) Whether the patient was Unknown hospitalized for condition of interest (test code = 63161-3) Whether the patient was admitted Unknown to intensive care unit (ICU) for condition of interest (test code = 96312-6) Whether patient resides in a Unknown congregate care setting (test code = 18026-2) status (test code = Unknown 99633-6) Date and time of symptom onset Unknown (test code = 23376-4) [facility] [id number] 21:04:31 Test Item Value Reference Range Interpretation Comments POC glucose (test code = 199 mg/dL 65-99 H Ope rator Name: Devin 18940-4) JittyDevice ID: [id number] able: RN Notified Lab Interpretation (test Abnormal code = 12747-7) [facility] [id number] 16:18:24 Test Item Value Reference Range Interpretation Comments Urine culture Mixed fernandez Specimen isolate (test 10- col/cc InformationSpe [facility] code = 96166-6) Source: Urin eSpecimen Site: Catheteri zed [facility] 12 [id number] 22:50:02 Test Item Value Reference Range Interpretation Comments Ventricular rate (test code = 253) Atrial rate (test code = 255) MD interval (test code = 266) QRSD interval (test code = 260) QT interval (test code = 264) QTC interval (test code = 265) P axis 1 (test code = 267) QRS axis 1 (test code = 268) T wave axis (test code = 270) EKG impression (test Normal sinus code = 273) rhythm-Left axis deviation-Septal infarct (cited on or before 07-OCT-2014)-Abnormal ECG-In automated comparison with ECG of 09-AUG-2019 20:57,-premature atrial complexes are no longer present-Nonspecific T wave abnormality, worse in Anterior leads- [facility] Or 3 [id number] 16:57:55EXAMINATION: XR LUMBAR SPINE 2 OR 3 VW COMPARISON: None CLINICAL HISTORY: Low back pain increased fracture risk, low back pain post fall at home COMMENTS: Frontal and lateral views lumbar spine are provided. FINDINGS: There is mild anterior spondylosis in the mid and upper lumbar spine. There is mild endplate sclerosis. The alignment is grossly intact. There is a moderate wedge compression deformity at T12. This appears to been present on surveillance monitor films of the chest dating [address] IMPRESSION:The deformity at T12 appears to be chronic based on surveillance monitor films of previous chest CT. [id number], Radiology Results - 01/06/2021 12:01 PM CDTFormatting of this note might be diffe rent from the original.EXAMINATION: XR LUMBAR SPINE 2 OR 3 VWCOMPARISON: NoneCLINICAL HISTORY: Low back pain increased fracture risk, low back pain post fall at homeCOMMENTS: Frontal and lateral views lumbar spine are provided.FINDINGS: There is mild anterior spondylosis in the mid and upper lumbar spine. There is mild endplate sclerosis. The alignment is grossly intact. There is a moderate wedge compression deformity at T12. This appears to been present on surveillance monitor films of the chest dating [address]IMPRESSION: The deformity at T12 appears to be chronic based on surveillance monitor films of previous chest C T.1RM1[facility]_PS02[facility] Wo [id number] 04:28:37 EXAMINATION: CT HEAD WO CONTRAST CLINICAL HISTORY: intermittent confusion COMPARISON: Brain MRI dated 03/06/2018 TECHNIQUE: Noncontrast head CT performed using radiation dose reduction techniques. Technical factors are evaluated and adjusted to ensure appropriate moderation of exposure. Automated dose management technology is applied to adjust radiation exposure while achieving a diagnostic quality image. FINDINGS: No evidence of acute intracranial hemorrhage, mass, mass effect, midline shift, or acute infarct. Ventricles and sulci are normal in appearance for patient's age. Basal cisterns are clear. Intracranial atherosclerosis. Calvarium is intact. Bilateral lens extractions. No significant paranasal sinus mucosal thickening. Mastoid air cells are clear. IMPRESSION: No CT evidence of acute intracranial abnormality. [facility]-[id number] Dictated and approved by vice president for philanthropy/fellow: Esther Kulkarni M.D. I, Compa Johnson M.D., personally reviewed the images and resident's/fellow's findings and agree with the final report.[facility], Radiology Results - 01/05/2021 11:31 PM CDT EXAMINATION: CT HEAD WO CONTRASTCLINICAL HISTORY: intermittent confusionCOMPARISON: Brain MRI dated 03/06/2018TECHNIQUE: Noncontrast head CT performedusing radiation dose reduction techniques. Technical factors are evaluated and adjusted to ensure appropriate moderation of exposure. Automated dose management technology is applied to adjust radiationexposure while achieving a diagnostic quality image. FINDINGS:No evidence of acute intracranial hemorrhage, mass, mass effect, midline shift, or acute infarct. Ventricles and sulci are normal in appearance for patient's age. Basal cisterns are clear. Intracranial atherosclerosis. Calvarium is intact.Bilateral lens extractions. No significant paranasal sinus mucosal thickening. Mastoid air cells are clear. IMPRESSION:No CT evidence of acute intracranial abnormality.[facility]- [id number] and approvedby vice president for philanthropy/fellow: Nilo Tucker, Compa Johnson M.D., personally reviewed the images and resident's/fellow's findings and agree with the final report.[facility] 1 Vw [id number] 03:34:34EXAMINATION: XR CHEST 1 VW PORTABLE CLINICAL HISTORY: 75 years Female SOB COMPARISON: August 14, 2019 IMPRESSION: Cardiomediastinal silhouette is unchanged. The lungs are clear Age related changes in the osseous structures. Moderate calcified atherosclerotic vascular disease throughout the arterial structures . . Interface, Radiology Results Incoming - 01/05/2021 10:37 PM CDT EXAMINATION: XR CHEST 1 VW PORTABLECLINICAL HISTORY: 75 years Female SOBCOMPARISON: August 14, 2019IMPRESSION:Cardiomediastinal silhouette is unchanged. The lungs are clear Age related changes in the osseous structures.Moderate calcified atherosclerotic vascular disease throughout the arterial structures . .[facility] Interpretation - Not an [id number] 03:05:10 Test Item Value Reference Range Interpretation Comments YOANNA (test code = YOANNA) Ambreen Watson DO 01/06/2021 6:55 [facility] ED Preliminary Interpretation - Not an OrderPerformed by: Ambreen Watson DOAuthorized by: Ambreen Watson DO ECG reviewed by ED Physician in the absence of a armhole sewer: yes Interpretation: Interpretation: abnormal Rate: ECG rate: 72 ECG rate assessment: normal Rhythm: Rhythm: sinus rhythm QRS: QRS axis: LeftComments: NSR with LAD but no STEMI Lab Interpretation Abnormal (test code = 00347-2) [facility] Asymptomatic IH [id number] 11:00:00 Test Item Value Reference Range Interpretation Comments COVID 19 NEGATIVE Negative "Negative resul ts from Asymptomatic IH AG patients with symptom (test code = onset beyondfiv e days, COVNONPUIAG) should be treat ed as presumptive, andconfirmation with a molecular assay [...] virus (antigen) in the sample." Blood Culture #[id number] 01:01:00 Test Item Value Reference Range Interpretation Comments Result (test code = No growth in 5 days 6463-4) [facility]00 Test Item Value Reference Range Interpretation Comments Result (test code = No growth in 5 days 6463-4) [facility] Culture # 01:01:00 Test Item Value Reference Range Interpretation Comments Result (test code = No growth in 5 days 6463-4) [facility] [id number] 01:01:00 Test Item Value Reference Range Interpretation Comments CULTURE (BEAKER) (test No growth in 5 days code = 1095) BLOOD [id number] 01:01:00 Test Item Value Reference Range Interpretation Comments CULTURE (BEAKER) (test No growth in 5 days code = 1095) Urine [id number] 08:23:00 Test Item Value Reference Range Interpretation Comments Result (test code = >100,000 col/mL skin 6463-4) [facility] [id number] 08:23:00 Test Item Value Reference Range Interpretation Comments Result (test code = >100,000 col/mL skin 6463-4) fernandez [facility] [id number] 08:23:00 Test Item Value Reference Range Interpretation Comments Result (test code = >100,000 col/mL skin 6463-4) fernandez [facility] [id number] 08:23:00 Test Item Value Reference Range Interpretation Comments CULTURE (BEAKER) (test >100,000 col/mL skin code = 1095) fernandez SARS-CoV2/Influenza/RSV RT-PCR (Symptomatic ONLY)2020-08-12 23:04:00 Test Item Value Reference Range Interpretation Comments SARS-COV2/RT-PCR (test Negative Negative code = 43252-4) Influenza A RT-PCR Negative Negative (test code = 46413-5) Influenza B RT-PCR Negative Negative (test code = 03408-3) RSV by RT-PCR (test Negative Negative Performa nce of the code = 00589-6) Xpert Xpress SARS-CoV-2/Flu/ RSV test has only [...] or ot her patient managem ent decisions. Resu lts from the Xpert Xpres s SARS-CoV-2/Flu/ RSV test should be corre lated with the clinic al history, epidemiological data, and other data available to th e clinician evalu ating the patient. In valid test results ma y occur from improper s pecimen collection; radha lure to follow the deborah mmended sample collecti on, handling, and s torage procedures; tesha hnical error. False ne gative results may occ ur if virus is presen t at levels below th e analytical limi t of detection (LOD: 131 copies/mL). Vir al nucleic acid ma y persist in vivo [...] an EUA for use by authorized laboratories. T his test is only authori zed for the duration of the declaration gen[place] [...] Fact Sh eet for Healthcare Prov iders: https://www.cep heid.com /Documents/Xper t%20Xpre ss%08ZDSZ-RmL-5 -Flu-RSV /302-4508%20Rev .%20B%20 HCP%20Fact%20Sh eet.pdf Fact Sheet for Healthcare Namita ents: https://www.[employer] /Documents/Xper t%20Xpre ss%93VEIU-VoE-9 -Flu-RSV /302-4507%20Rev .%20B%20 Patient%20Fact% 20Sheet. pdf Lab Interpretation Normal (test code = 78763-4) [facility] (Symptomatic ONLY) 2020-08-12 23:04:00 Test Item Value Reference Range Interpretation Comments SARS-COV2/RT-PCR (test Negative Negative code = 61154-2) Influenza A RT-PCR Negative Negative (test code = 39311-3) Influenza B RT-PCR Negative Negative (test code = 28972-4) RSV by RT-PCR (test Negative Negative Performa nce of the code = 75063-5) [facility] Xpress SARS-CoV-2/Flu/ RSV test has only been established in nasopharyngeal swab specimens. Use of the Xpert Xpress SARS-CoV-2/Flu/ RSV test with other spec imen types has not b een assessed and performance characteristics are unknown. As wit h any molecular test, mutations withi n the [...] or ot her patient managem ent decisions. Resu lts from the Xpert Xpres s SARS-CoV-2/Flu/ RSV test should be corre lated with the clinic al history, epidemiological data, and other data available to th e clinician evalu ating the patient. In valid test results ma y occur from improper s pecimen collection; radha lure to follow the deborah mmended sample collecti on, handling, and s torage procedures; tesha hnical error. False ne gative results may occ ur if virus is presen t at levels below th e analytical limi t of detection (LOD: 131 copies/mL). Vir al nucleic acid ma y persist in vivo , independent of virus viability. Dete ction of analyte target( s) does not imply that the corresponding v irus(es) are infectious or are the causative a gents for clinical sy mptoms. Recent patient exposure to FluMist or other live attenuated influenza vacci inessa may cause inaccurat e positive result s.This test has been authorized by [employer] under an EUA for use by authorized laboratories. T his test is only authori zed for the duration of the declaration geneva [...] Fact Sh eet for Healthcare Prov iders: https://www.[employer] /Documents/Xper t%20Xpre ss%62CLRE-SpF-7 -Flu-RSV /3024508%20Rev .%20B%20 HCP%20Fact%20Sh eet.pdf Fact Sheet for Healthcare Namita ents: https://www.[place].[employer] /Documents/Xper t%20Xpre ss%09OYYX-GfM-0 -Flu-RSV /302-4507%20Rev .%20B%20 Patient%20Fact% 20Sheet. pdf Lab Interpretation Normal (test code = 79193-5) [facility]Symptomatic ONLY[facility] 2020-08-12 23:04:00 Test Item Value Reference Range Interpretation Comments SARS-COV2/RT-PCR (test Negative Negative code = 04731-2) Influenza A RT-PCR Negative Negative (test code = 23879-0) Influenza B RT-PCR Negative Negative (test code = 86666-2) RSV by RT-PCR (test Negative Negative Performa nce of the code = 13298-9) Xpert Xpress SARS-CoV-2/Flu/ RSV test has only been established in nasopharyngeal swab specimens. Use of the Xpert Xpress SARS-CoV-2/Flu/ RSV test with other spec imen types has not b een assessed and performance characteristics are unknown. As wit h any molecular test, mutations withi n the [...] or ot her patient managem ent decisions. Resu lts from the Xpert Xpres s SARS-CoV-2/Flu/ RSV test should be corre lated with the clinic al history, epidemiological data, and other data available to th e clinician evalu ating the patient. In valid test results ma y occur from improper s pecimen collection; radha lure to follow the deborah mmended sample collecti on, handling, and s torage procedures; tesha hnical error. False ne gative results may occ ur if virus is presen t at levels below th e analytical limi t of detection (LOD: 131 copies/mL). Vir al nucleic acid ma y persist in vivo , independent of virus viability. Dete ction of analyte target( s) does not imply that the corresponding v irus(es) are infectious or are the causative a gents for clinical sy mptoms. Recent patient exposure to FluMist or other live attenuated influenza vacci inessa may cause inaccurat e positive result s.This test has been authorized by [employer] under an EUA for use by authorized laboratories. T his test is only authori zed for the duration of the declaration geneva [...] Fact Sh eet for Healthcare Prov iders: https://www.[employer] /Documents/Xper t%20Xpre ss%89TAOZ-MkD-7 -Flu-RSV /302-4508%20Rev .%20B%20 HCP%20Fact%20Sh eet.pdf Fact Sheet for Healthcare Namita ents: https://www.[employer] /Documents/Xper t%20Xpre ss%27VMUG-AmS-5 -Flu-RSV /302-4507%20Rev .%20B%20 Patient%20Fact% 20Sheet. pdf Lab Interpretation Normal (test code = 92894-9) [facility] [id number] 23:04:00 Test Item Value Reference Range Interpretation Comments SARS-COV2/RT-PCR Negative Negative (test code = 4792656) INFLUENZA A RT-PCR Negative Negative (test code = 9033132) INFLUENZA B RT-PCR Negative Negative (test code = 6014682) RSV RT-PCR (test Negative Negative Performance of the Xpert code = 5001865) Xpress SARS- CoV-2/Flu/RSV test has only b een established in nasopharyngeal swab specimens. Use of the Xpert Xpress SARS-CoV-2/Flu/ RSV test with other spec imen types has not been as sessed and performance characteristics are unknown. As wit h any molecular test, mutations within the targ eted genetic regions identified by t he Xpert Xpress SARS-CoV -2/Flu/RSV test could affe [...] to e clinician evalu ating the patient. Invali d test results may occ ur from improper specim en collection; radha lure to follow the deborah mmended sample collecti on, handling, and s torage procedures; tesha hnical error. False ne gative results may occ ur if virus is presen t at levels below th e analytical limi t of detection (LOD: 131 copies/mL). Vir al nucleic acid may persis t in vivo, independent of virus viability. Dete ction of analyte target( s) does not imply that the corresponding v irus(es) are infectious or are the causative agent s for clinical sympto ms. Recent patient exposur e to FluMist or othe r live attenuated infl uenza vaccines may ca use inaccurate posi tive results.This te st has been authorized by [...] Drug and Cosmetic Ac t, 21 U.S.C. 360bbb-3 (b)(1), unless the auth orization is terminated o r revoked sooner.Fact She et for Healthcare Prov iders: https://www.[place].com/D ocuments/Xpert% 20Xpress%2 0BMOG-GfQ-1-Flu -RSV/302-4 508%20Rev.%20B% 20HCP%20Fa ct%20Sheet.pdfF act Sheet for Healthcare Patients: https://www.[employer]/D ocuments/Xpert% 20Xpress%2 4UWMM-BcP-4-Flu -RSV/302-4 507%20Rev.%20B% 20Patient% 20Fact%20Sheet. pdf Comprehensive metabolic [id number] 22:47:00 Test Item Value Reference Range Interpretation Comments Protein, Total (test 7.3 See_Comment Specime n slightly code = 2885-2) hemolyzed [Automated message] The system which generated this result transmit ana reference range : 6.0 - 8.5 gm/dL . The reference range was not u sed to interpret th is result as normal/abnormal . Albumin (test code = 4.2 g/dL 3.5-5.0 Specime n slightly 15856-0) hemolyzed Alkaline Phosphatase 72 U/L 30-115 (test code = 6768-6) Total Bilirubin (test 0.4 mg/dL 0.1-1.2 Specim en slightly code = 1974-2) hemolyzed Sodium (test code = 140 meq/L 083-477 0546-2) Potassium (test code 3.1 meq/L 3.6-5.5 L Specime n slightly = 2823-3) hemolyzed Chloride (test code = 102 meq/L 98-106 5-0) CO2 (test code = 25 meq/L 20-29 2027-9) BUN (test code = 13 mg/dL 10-26 3094-0) Creatinine (test code 0.97 mg/dL 0.50-1.20 Specim en slightly = 2160-0) hemolyzed Glucose (test code = 138 mg/dL 70-110 H 2345-7) Calcium (test code = 9.9 mg/dL 8.5-10.5 22457-2) AST (test code = 19 U/L 5-40 Specimen sl ightly 1920-8) hemolyzed ALT (test code = 15 U/L 5-50 Specimen sl ightly 1742-6) hemolyzed EGFR (test code = 56 mL/min/1.[place] [address]-8) NOT ACCURATE CREATININE CLEARANCE IN PREDICTING GLOMERULAR FILTRATION RATE . ESTIMATED GFR I S NOT APPLICABLE FOR DIALYSIS PATIEN TS. YOANNA (test code = YOANNA) Efficiency Clerk ID - [id number] r ID - [id number] r ID - [id number] r ID - [id number] r ID - [id number] r ID - [id number] r ID - [id number] r ID - [id number] r ID - [id number] r ID - [id number] r ID - [id number] r ID - [id number] r ID - [id number] r ID - [id number] r ID - [id number] r ID - [id number] r ID - [id number] r ID - [id number] r ID - [id number] Lab Interpretation Abnormal (test code = 87383-9) [facility] [id number] 22:47:00 Test Item Value Reference Range Interpretation Comments Protein, Total (test 7.3 See_Comment Specime n slightly code = 2885-2) hemolyzed [Automated message] The system which generated this result transmit ana reference range : 6.0 - 8.5 gm/dL . The reference range was not u sed to interpret th is result as normal/abnormal . Albumin (test code = 4.2 g/dL 3.5-5.0 Specime n slightly 91655-4) hemolyzed Alkaline Phosphatase 72 U/L 30-115 (test code = 6768-6) Total Bilirubin (test 0.4 mg/dL 0.1-1.2 Specim en slightly code = 1975-2) hemolyzed Sodium (test code = 140 meq/L 939-204 7032-2) Potassium (test code 3.1 meq/L 3.6-5.5 L Specime n slightly = 2823-3) hemolyzed Chloride (test code = 102 meq/L 98-106 2075-0) CO2 (test code = 25 meq/L 20-29 2028-9) BUN (test code = 13 mg/dL 10-26 3094-0) Creatinine (test code 0.97 mg/dL 0.50-1.20 Specim en slightly = 2160-0) hemolyzed Glucose (test code = 138 mg/dL 70-110 H 2345-7) Calcium (test code = 9.9 mg/dL 8.5-10.5 00904-7) AST (test code = 19 U/L 5-40 Specimen sl ightly 1920-8) hemolyzed ALT (test code = 15 U/L 5-50 Specimen sl ightly 1742-6) hemolyzed EGFR (test code = 56 mL/min/1.[place] [address]-8) NOT ACCURATE CREATININE CLEARANCE IN PREDICTING GLOMERULAR FILTRATION RATE . ESTIMATED GFR I S NOT APPLICABLE FOR DIALYSIS PATIEN TS. YOANNA (test code = YOANNA) Efficiency Clerk ID - [id number] r ID - [id number] r ID - [id number] r ID - [id number] r ID - [id number] r ID - [id number] r ID - [id number] r ID - [id number] r ID - [id number] r ID - [id number] r ID - [id number] r ID - [id number] r ID - [id number] r ID - [id number] r ID - [id number] r ID - [id number] r ID - [id number] r ID - [id number] r ID - [id number] Lab Interpretation Abnormal (test code = 40186-9) [facility] [id number] 22:47:00 Test Item Value Reference Range Interpretation Comments Protein, Total (test 7.3 See_Comment Specime n slightly code = 2885-2) hemolyzed [Automated message] The system which generated this result transmit ana reference range : 6.0 - 8.5 gm/dL . The reference range was not u sed to interpret th is result as normal/abnormal . Albumin (test code = 4.2 g/dL 3.5-5.0 Specime n slightly 27849-3) hemolyzed Alkaline Phosphatase 72 U/L 30-115 (test code = 6768-6) Total Bilirubin (test 0.4 mg/dL 0.1-1.2 Specim en slightly code = 1975-2) hemolyzed Sodium (test code = 140 meq/L 554-039 5219-2) Potassium (test code 3.1 meq/L 3.6-5.5 L Specime n slightly = 2823-3) hemolyzed Chloride (test code = 102 meq/L 98-106 5-0) CO2 (test code = 25 meq/L 20-29 2027-9) BUN (test code = 13 mg/dL - 3094-0) Creatinine (test code 0.97 mg/dL 0.50-1.20 Specim en slightly = 2160-0) hemolyzed Glucose (test code = 138 mg/dL 70-110 H 2345-7) Calcium (test code = 9.9 mg/dL 8.5-10.5 86062-8) AST (test code = 19 U/L 5-40 Specimen sl ightly 1920-8) hemolyzed ALT (test code = 15 U/L 5-50 Specimen sl ightly 1742-6) hemolyzed EGFR (test code = 56 mL/min/1.[place] [address]-1) NOT ACCURATE CREATININE CLEARANCE IN PREDICTING GLOMERULAR FILTRATION RATE . ESTIMATED GFR I S NOT APPLICABLE FOR DIALYSIS PATIEN TS. YOANNA (test code = YOANNA) Efficiency Clerk ID - [id number] r ID - [id number] r ID - [id number] r ID - [id number] r ID - [id number] r ID - [id number] r ID - [id number] r ID - [id number] r ID - [id number] r ID - [id number] r ID - [id number] r ID - [id number] r ID - [id number] r ID - [id number] r ID - [id number] r ID - [id number] r ID - [id number] r ID - [id number] r ID - [id number] Lab Interpretation Abnormal (test code = 29034-9) [facility] [id number] 22:47:00 Test Item Value Reference Range Interpretation [...] S NOT APPLICABLE FOR DIALYSIS PATIEN TS. Efficiency Clerk ID - [id number] ID - [id number] ID - [id number] ID - [id number] ID - [id number] ID - [id number] ID - [id number] ID - [id number] ID - [id number] ID - [id number] ID - [id number] ID - [id number] ID - [id number] ID - [id number] ID - [id number] ID - [id number] ID - [id number] ID - [id number] ID - [id number]-yhzg Natriuretic Factor (BNP)2020-08-12 22:42:00 Test Item Value Reference Range Interpretation Comments BNP (test code = 77797-5) 65 pg/mL 0-100 YOANNA (test code = YOANNA) Efficiency Clerk ID - [id number] Lab Interpretation (test Normal code = 49610-4) [facility] (BNP)2020-08-12 22:42:00 Test Item Value Reference Range Interpretation Comments BNP (test code = 69963-6) 65 pg/mL 0-100 YOANNA (test code = YOANNA) Efficiency Clerk ID - [id number] Lab Interpretation (test Normal code = 65110-7) [facility] (BNP)2020-08-12 22:42:00 Test Item Value Reference Range Interpretation Comments BNP (test code = 44682-0) 65 pg/mL 0-100 YOANNA (test code = YOANNA) Efficiency Clerk ID - [id number] Lab Interpretation (test Normal code = 91521-5) [facility] NATRIURETIC FACTOR (BNP)2020-08-12 22:42:00 Test Item Value Reference Range Interpretation Comments B-TYPE NATRIURETIC PEPTIDE (BEAKER) 65 pg/mL 0-100 (test code = 700) Efficiency Clerk ID - [id number] [id number] 22:41:00 Test Item Value Reference Range Interpretation Comments Troponin I (test code = <0.03 0.00-0.15 10394-8) YOANNA (test code = YOANNA) Troponin I [...] failure, acidosis, acute neurological disease, and persistent tachyarrhythmia.[facility] tor ID - [id number] Lab Interpretation (test Normal code = 73209-2) [facility] [id number] 22:41:00 Test Item Value Reference Range Interpretation Comments Troponin I (test code = <0.03 0.00-0.15 32435-8) YOANNA (test code = YOANNA) Troponin I [...] failure, acidosis, acute neurological disease, and persistent tachyarrhythmia.[facility] ID - [id number] Lab Interpretation (test Normal code = 36849-8) [facility] [id number] 22:41:00 Test Item Value Reference Range Interpretation Comments Troponin I (test code = <0.03 0.00-0.15 38251-6) YOANNA (test code = YOANNA) Troponin I [...] disease, and persistent tachyarrhythmia.[facility] ID - [id number] Lab Interpretation (test Normal code = 88688-2) [facility] [id number] 22:41:00 Test Item Value Reference Range Interpretation [...] failure, acidosis, acute neurological disease, and persistent tachyarrhythmia.Efficiency Clerk ID - [id number] 22:33:00 Test Item Value Reference Range Interpretation Comments PTT (test code = 22.9 See_Comment L Final Infor mation 69938-1) (Auto Output) [Automated mess age] The system [place]. com. cn generated this result transmitted ref erence range: 23.0 - 3 5.0 seconds. The reference range was not used to int erpret this result as normal/abnormal . Lab Interpretation (test Abnormal code = 82772-4) [facility] CenterL[facility], venous [id number] 22:33:00 Test Item Value Reference Range Interpretation Comments Lactate, Venous (test 2.50 mmol/L 0.50-2.00 HH Specim en code = 2872) moderately hemolyzed YOANNA (test code = YOANNA) Efficiency Clerk ID - [id number] r ID - [id number] r ID - [id number] r ID - [id number] Lab Interpretation Abnormal (test code = 10477-0) [facility]PTT[facility] 22:33:00 Test Item Value Reference Range Interpretation Comments PTT (test code = 22.9 See_Comment L Final Infor mation 16648-5) (Auto Output) [Automated mess age] The system [place]. com. cn generated this result transmitted ref erence range: 23.0 - 3 5.0 seconds. The reference range was not used to int erpret this result as normal/abnormal . Lab Interpretation (test Abnormal code = 93472-5) [facility] CenterL[facility], venous [id number] 22:33:00 Test Item Value Reference Range Interpretation Comments Lactate, Venous (test 2.50 mmol/L 0.50-2.00 HH Specim en code = 2872) moderately hemolyzed YOANNA (test code = YOANNA) Efficiency Clerk ID - [id number] r ID - [id number] r ID - [id number] r ID - [id number] Lab Interpretation Abnormal (test code = 25905-3) [facility] 22:33:00 Test Item Value Reference Range Interpretation Comments PTT (test code = 22.9 See_Comment L Final Infor mation 69738-4) (Auto Output) [Automated mess age] The system [place]. com. cn generated this result transmitted ref erence range: 23.0 - 3 5.0 seconds. The reference range was not used to int erpret this result as normal/abnormal . Lab Interpretation (test Abnormal code = 15472-1) [facility] CenterL[facility], venous [id number] 22:33:00 Test Item Value Reference Range Interpretation Comments Lactate, Venous (test 2.50 mmol/L 0.50-2.00 HH Specim en code = 2872) moderately hemolyzed YOANNA (test code = YOANNA) Efficiency Clerk ID - [id number] r ID - [id number] r ID - [id number] r ID - [id number] Lab Interpretation Abnormal (test code = 98994-7) [facility] CenterLACTIC ACID, [id number] 22:33:00 Test Item Value Reference Range Interpretation Comments LACTATE BLOOD VENOUS 2.50 mmol/L 0.50-<2.00 HH Specime n moderately (2) (BEAKER) (test hemolyzed code = 2872) Efficiency Clerk ID - [id number] ID - [id number] ID - [id number] ID - [id number] 22:33:00 Test Item Value Reference Range Interpretation Comments PARTIAL THROMBOPLASTIN 22.9 seconds 23.0-35.0 L Final Information TIME (BEAKER) (test (Auto Ou tput) code = 760) Prothrombin time/[id number] 22:32:00 Test Item Value Reference Interpretation Comments [...] valves. Lab Interpretation Normal (test code = 33051-7) [facility] CenterProthrombin time/[id number] 22:32:00 Test Item Value Reference Interpretation Comments [...] valves. Lab Interpretation Normal (test code = 86575-1) [facility] CenterProthrombin time/[id number] 22:32:00 Test Item Value Reference Interpretation Comments [...] valves. Lab Interpretation Normal (test code = 89359-9) [facility] CenterPROTHROMBIN TIME/[id number] 22:32:00 Test Item Value Reference Range Interpretation [...] heart valves.CBC with platelet count + automated [id number] 22:18:00 Test Item Value Reference Range Interpretation Comments WBC (test code = 7.5 See_Comment [Automated message] 6690-2) The system [place]. com. cn generated this result transmitted ref erence range: 4.0 - 10 .0 K/L. The refe rence range was not u sed to interpret this result as normal/abnor mal. RBC (test code = 789-8) 4.54 See_Comment [Au tomated message] The system [place]. com. cn generated this result transmitted ref erence range: 4.00 - 5 .00 M/L. The refe rence range was not u sed to interpret this result as normal/abnor mal. MCHC (test code = 33.8 See_Comment [Automate d message] 786-4) The system [place]. com. cn generated this result transmitted ref erence range: 32.0 - 3 6.0 GM/DL. The refe rence range was not u sed to interpret this result as normal/abnor mal. Hematocrit (test code = 39.1 % 36.0-46.0 4544-3) MCV (test code = 787-2) 86.1 fL 82.0-99.0 MCH (test code = 785-6) 29.1 pg 27.0-33.0 RDW (test code = 788-0) 14.0 % 12.0-15.0 Platelets (test code = 207 See_Comment [Aut omated message] 697-3) The system [place]. com. cn generated this result transmitted ref erence range: 150 - 43 0 K/CU MM. The referen ce range was not used to interpret this result as normal/abnor mal. MPV (test code = 10.0 fL 6.0-11.5 28023-9) nRBC (test code = 413) 0 See_Comment [Aut omated message] The system [place]. com. cn generated this result transmitted ref erence range: [...] See_Comment [Aut omated message] 670) The system [place]. com. cn generated this result transmitted ref erence range: 1.80 - 8 .00 K/L. The refe rence range was not u sed to interpret this result as normal/abnor mal. # Lymphs (test code = 2.72 See_Comment [Auto mated message] 414) The system [place]. com. cn generated this result transmitted ref erence range: 1.48 - 4 .50 K/L. The refe rence range was not u sed to interpret this result as normal/abnor mal. # Monos (test code = 0.56 See_Comment [Autom ated message] 415) The system [place]. com. cn generated this result transmitted ref erence range: 0.00 - 1 .30 K/L. The refe rence range was not u sed to interpret this result as normal/abnor mal. # Eos (test code = 416) 0.13 See_Comment [Au tomated message] The system [place]. com. cn generated this result transmitted ref erence range: 0.00 - 0 .50 K/L. The refe rence range was not u sed to interpret this result as normal/abnor mal. # Baso (test code = 0.04 See_Comment [Automa ana message] 417) The system [place]. com. cn generated this result transmitted ref erence range: 0.00 - 0 .20 K/L. The refe rence range was not u sed to interpret this result as normal/abnor mal. Immature 0 % 0-0 Granulocytes-Relative (test code = 2801) [facility] with platelet count + automated [id number] 22:18:00 Test Item Value Reference Range Interpretation Comments WBC (test code = 7.5 See_Comment [Automated message] 6690-2) The system [place]. com. cn generated this result transmitted ref erence range: 4.0 - 10 .0 K/L. The refe rence range was not u sed to interpret this result as normal/abnor mal. RBC (test code = 789-8) 4.54 See_Comment [Au tomated message] The system [place]. com. cn generated this result transmitted ref erence range: 4.00 - 5 .00 M/L. The refe rence range was not u sed to interpret this result as normal/abnor mal. MCHC (test code = 33.8 See_Comment [Automate d message] 786-4) The system [place]. com. cn generated this result transmitted ref erence range: 32.0 - 3 6.0 GM/DL. The refe rence range was not u sed to interpret this result as normal/abnor mal. Hematocrit (test code = 39.1 % 36.0-46.0 4544-3) MCV (test code = 787-2) 86.1 fL 82.0-99.0 MCH (test code = 785-6) 29.1 pg 27.0-33.0 RDW (test code = 788-0) 14.0 % 12.0-15.0 Platelets (test code = 207 See_Comment [Aut omated message] 777-3) The system [place]. com. cn generated this result transmitted ref erence range: 150 - 43 0 K/CU MM. The referen ce range was not used to interpret this result as normal/abnor mal. MPV (test code = 10.0 fL 6.0-11.5 09821-8) nRBC (test code = 413) 0 See_Comment [Aut omated message] The system [place]. com. cn generated this result transmitted ref erence range: [...] See_Comment [Aut omated message] 670) The system [place]. com. cn generated this result transmitted ref erence range: 1.80 - 8 .00 K/L. The refe rence range was not u sed to interpret this result as normal/abnor mal. # Lymphs (test code = 2.72 See_Comment [Auto mated message] 414) The system [place]. com. cn generated this result transmitted ref erence range: 1.48 - 4 .50 K/L. The refe rence range was not u sed to interpret this result as normal/abnor mal. # Monos (test code = 0.56 See_Comment [Autom ated message] 415) The system [place]. com. cn generated this result transmitted ref erence range: 0.00 - 1 .30 K/L. The refe rence range was not u sed to interpret this result as normal/abnor mal. # Eos (test code = 416) 0.13 See_Comment [Au tomated message] The system [place]. com. cn generated this result transmitted ref erence range: 0.00 - 0 .50 K/L. The refe rence range was not u sed to interpret this result as normal/abnor mal. # Baso (test code = 0.04 See_Comment [Automa ana message] 417) The system [place]. com. cn generated this result transmitted ref erence range: 0.00 - 0 .20 K/L. The refe rence range was not u sed to interpret this result as normal/abnor mal. Immature 0 % 0-0 Granulocytes-Relative (test code = 2801) [facility] with platelet count + automated [id number] 22:18:00 Test Item Value Reference Range Interpretation Comments WBC (test code = 7.5 See_Comment [Automated message] 6690-2) The system [place]. com. cn generated this result transmitted ref erence range: 4.0 - 10 .0 K/L. The refe rence range was not u sed to interpret this result as normal/abnor mal. RBC (test code = 789-8) 4.54 See_Comment [Au tomated message] The system [place]. com. cn generated this result transmitted ref erence range: 4.00 - 5 .00 M/L. The refe rence range was not u sed to interpret this result as normal/abnor mal. MCHC (test code = 33.8 See_Comment [Automate d message] 786-4) The system [place]. com. cn generated this result transmitted ref erence range: 32.0 - 3 6.0 GM/DL. The refe rence range was not u sed to interpret this result as normal/abnor mal. Hematocrit (test code = 39.1 % 36.0-46.0 4544-3) MCV (test code = 787-2) 86.1 fL 82.0-99.0 MCH (test code = 785-6) 29.1 pg 27.0-33.0 RDW (test code = 788-0) 14.0 % 12.0-15.0 Platelets (test code = 207 See_Comment [Aut omated message] 777-3) The system [place]. com. cn generated this result transmitted ref erence range: 150 - 43 0 K/CU MM. The referen ce range was not used to interpret this result as normal/abnor mal. MPV (test code = 10.0 fL 6.0-11.5 87466-5) nRBC (test code = 413) 0 See_Comment [Aut omated message] The system [place]. com. cn generated this result transmitted ref erence range: [...] See_Comment [Aut omated message] 670) The system [place]. com. cn generated this result transmitted ref erence range: 1.80 - 8 .00 K/L. The refe rence range was not u sed to interpret this result as normal/abnor mal. # Lymphs (test code = 2.72 See_Comment [Auto mated message] 414) The system [place]. com. cn generated this result transmitted ref erence range: 1.48 - 4 .50 K/L. The refe rence range was not u sed to interpret this result as normal/abnor mal. # Monos (test code = 0.56 See_Comment [Autom ated message] 415) The system [place]. com. cn generated this result transmitted ref erence range: 0.00 - 1 .30 K/L. The refe rence range was not u sed to interpret this result as normal/abnor mal. # Eos (test code = 416) 0.13 See_Comment [Au tomated message] The system [place]. com. cn generated this result transmitted ref erence range: 0.00 - 0 .50 K/L. The refe rence range was not u sed to interpret this result as normal/abnor mal. # Baso (test code = 0.04 See_Comment [Automa ana message] 417) The system [place]. com. cn generated this result transmitted ref erence range: 0.00 - 0 .20 K/L. The refe rence range was not u sed to interpret this result as normal/abnor mal. Immature 0 % 0-0 Granulocytes-Relative (test code = 2801) [facility] W/PLT COUNT & AUTO [id number] 22:18:00 Test Item Value Reference Range Interpretation [...] 2801) RAD, CHEST, PA OR AP, 1 [id number] 20:49:00Reason for exam:->sob [facility] 1945 Sex: FFINAL REPORT X-ray chest AP portable COMPARISON: 4 months prior HISTORY: Shortness of breath FINDINGS:Technical adequacy: AdequateLines and Tubes: Not applicableCentral airways: UnremarkableHeart: Coronary artery stents.Great vessels: UnremarkableMediastinum: UnremarkableLungs: UnremarkablePleura: UnremarkableSkeletal structures: UnremarkableBody wall: UnremarkableUpper abdomen: Unremarkable Impression: As above. No acute cardiopulmonary disease. Signed: Jeff Daugherty MDReport Verified Date/Time: 08/12/2020 20:49:32 Reading Location: [address] Transitional Reading Room Urinalysis w/Microscopic + Reflex to [id number] 20:43:00 Test Item Value Reference Range Interpretation Comments Color, UA (test code = Yellow 5778-6) Clarity, UA (test code = Clear 5767-9) Specific [place], UA 1.025 1.001-1.035 (test code = 5811-5) pH, UA (test code = 5.5 5.0-8.0 5803-2) Protein, UA (test code = Negative Negative 29483-4) Glucose, UA (test code = 250 mg/dL Negative A 365) Ketones, UA (test code = 15 mg/dL Negative A 2514-8) Bilirubin, UA (test code Negative Negative = 52310-3) Blood, UA (test code = Negative Negative 96763-4) Nitrite, UA (test code = Negative Negative 5802-4) Leukocytes, UA (test Small Negative A code = 5799-2) Urobilinogen, UA (test 0.2 mg/dL 0.2-1.0 code = 10987-6) Bacteria, UA (test code Few = 51042-5) RBC, UA (test code = None Seen See_Comment [Autom ated message] 799-7) The system [place]. com. cn generated this result transmit ana reference range : /HPF. The refer ence range was not u sed to interpret th is result as normal/abnormal . WBC, UA (test code = 5-10 See_Comment [Autom ated message] 66928-9) The system [place]. com. cn generated this result transmit ana reference range : /HPF. The refer ence range was not u sed to interpret th is result as normal/abnormal . SQUAMOUS EPITHELIAL 5-10 See_Comment [Automa ana message] (test code = 34785-4) The sy stem which generated this result transmit ana reference range : /HPF. The refer ence range was not u sed to interpret th is result as normal/abnormal . Specimen Source (test code = 2795) Lab Interpretation (test Abnormal code = 96380-4) [facility] Culture 2020-08-12 20:43:00 Test Item Value Reference Range Interpretation Comments Color, UA (test code = Yellow 5778-6) Clarity, UA (test code = Clear 5767-9) Specific [place], UA 1.025 1.001-1.035 (test code = 5811-5) pH, UA (test code = 5.5 5.0-8.0 5803-2) Protein, UA (test code = Negative Negative 73190-0) Glucose, UA (test code = 250 mg/dL Negative A 365) Ketones, UA (test code = 15 mg/dL Negative A 2514-8) Bilirubin, UA (test code Negative Negative = 60561-5) Blood, UA (test code = Negative Negative 77836-7) Nitrite, UA (test code = Negative Negative 5802-4) Leukocytes, UA (test Small Negative A code = 5799-2) Urobilinogen, UA (test 0.2 mg/dL 0.2-1.0 code = 59111-5) Bacteria, UA (test code Few = 38085-2) RBC, UA (test code = None Seen See_Comment [Autom ated message] 799-7) The system [place]. com. cn generated this result transmit ana reference range : /HPF. The refer ence range was not u sed to interpret th is result as normal/abnormal . WBC, UA (test code = 5-10 See_Comment [Autom ated message] 45966-8) The system [place]. com. cn generated this result transmit ana reference range : /HPF. The refer ence range was not u sed to interpret th is result as normal/abnormal . SQUAMOUS EPITHELIAL 5-10 See_Comment [Automa ana message] (test code = 52612-9) The sy stem which generated this result transmit ana reference range : /HPF. The refer ence range was not u sed to interpret th is result as normal/abnormal . Specimen Source (test code = 2795) Lab Interpretation (test Abnormal code = 82148-3) [facility] Reflex to Culture 2020-08-12 20:43:00 Test Item Value Reference Range Interpretation Comments Color, UA (test code = Yellow 5778-6) Clarity, UA (test code = Clear 5767-9) Specific [place], UA 1.025 1.001-1.035 (test code = 5811-5) pH, UA (test code = 5.5 5.0-8.0 5803-2) Protein, UA (test code = Negative Negative 94499-7) Glucose, UA (test code = 250 mg/dL Negative A 365) Ketones, UA (test code = 15 mg/dL Negative A 2514-8) Bilirubin, UA (test code Negative Negative = 04434-8) Blood, UA (test code = Negative Negative 29952-9) Nitrite, UA (test code = Negative Negative 5802-4) Leukocytes, UA (test Small Negative A code = 5799-2) Urobilinogen, UA (test 0.2 mg/dL 0.2-1.0 code = 97775-2) Bacteria, UA (test code Few = 65969-3) RBC, UA (test code = None Seen See_Comment [Autom ated message] 799-7) The system [place]. com. cn generated this result transmit ana reference range : /HPF. The refer ence range was not u sed to interpret th is result as normal/abnormal . WBC, UA (test code = 5-10 See_Comment [Autom ated message] 97711-7) The system [place]. com. cn generated this result transmit ana reference range : /HPF. The refer ence range was not u sed to interpret th is result as normal/abnormal . SQUAMOUS EPITHELIAL 5-10 See_Comment [Automa ana message] (test code = 82173-8) The sy stem which generated this result transmit ana reference range : /HPF. The refer ence range was not u sed to interpret th is result as normal/abnormal . Specimen Source (test code = 2795) Lab Interpretation (test Abnormal code = 11966-5) [facility]FLEX URINE [id number] 20:43:00 Test Item Value Reference Range Interpretation [...] 1663) SOURCE(BEAKER) (test code = 2795) ECG/EKG [id number] 20:27:34 Test Item Value Reference Range Interpretation Comments YOANNA (test code = YOANNA) Arturo Lovett MD 08/13/2020 2:59 AMECG/EKG Interpretation Date/Time: 08/13/2020 2:59 AMPerformed by: Arturo Lovett, MORENAuthorized by: Arturo Lovett MD The ECG was interpreted by ED physician. The ECG is interpreted as sinus rhythm. Rate is normal rate. Heart rate is 61 BPM.Abnormal conduction noted: incomplete RBBB.[place] is left. Other findings include: Anteroseptal infarct, age undetermined. and LVH. Clinical Impression: abnormal ECG Lab Interpretation Abnormal (test code = 14950-8) [facility] [id number] 20:27:34 Test Item Value Reference Range Interpretation Comments YOANNA (test code = YOANNA) Arturo Lovett MD 08/13/2020 2:59 AMECG/EKG Interpretation Date/Time: 08/13/2020 2:59 AMPerformed by: Arturo Lovett, MDAuthorized by: Arturo Lovett MD The ECG was interpreted by ED physician. The ECG is interpreted as sinus rhythm. Rate is normal rate. Heart rate is 61 BPM.Abnormal conduction noted: incomplete RBBB.[place] is left. Other findings include: Anteroseptal infarct, age undetermined. and LVH. Clinical Impression: abnormal ECG Lab Interpretation Abnormal (test code = 32583-5) [facility] [id number] 20:27:34 Test Item Value Reference Range Interpretation Comments YOANNA (test code = YOANNA) Arturo Lovett MD 08/13/2020 2:59 AMECG/EKG Interpretation Date/Time: 08/13/2020 2:59 AMPerformed by: Arturo Lovett MDAuthorized by: Arturo Lovett MD The ECG was interpreted by ED physician. The ECG is interpreted as sinus rhythm. Rate is normal rate. Heart rate is 61 BPM.Abnormal conduction noted: incomplete RBBB.[place] is left. Other findings include: Anteroseptal infarct, age undetermined. and LVH. Clinical Impression: abnormal ECG Lab Interpretation Abnormal (test code = 74864-5) [facility] CenterPOCT[facility] [id number] 11:43:00 Test Item Value Reference Range Interpretation Comments POC-GLUCOSE METER 264 mg/dL 70-110 H : [facility]ER[facility] (test code [facility], = 1538) [place] [address]: Efficiency Clerk/Techni lili ID = [id number] for Anali Schuler POCT-GLUCOSE [id number] 06:00:00 Test Item Value Reference Range Interpretation Comments POC-GLUCOSE METER 160 mg/dL 70-110 H : [facility] (BEAKER[facility] (test code [facility] [place], = 1538) [place] [address]: Efficiency Clerk/Techni lili ID = [id number] for Rohit Beltran ph POCT-GLUCOSE [id number] 20:47:00 Test Item Value Reference Range Interpretation Comments POC-GLUCOSE METER 305 mg/dL 70-110 H : Notified RN/MD: TESTED (BEAKER) (test code AT [facility] [address] = 1538) [place] [address]: Efficiency Clerk/Techni lili ID = [id number] for Rohit Beltran ph POCT-GLUCOSE [id number] 17:14:00 Test Item Value Reference Range Interpretation Comments POC-GLUCOSE METER 267 mg/dL 70-110 H : [facility] (BEAKER[facility] (test code [facility] [place], = 1538) [place] [address]: Efficiency Clerk/Techni lili ID = [id number] for Alvin Dumont SARS-COV2/RT-PCR ([facility])2020-04-24 15:23:00 Test Item Value Reference Range Interpretation Comments SARS-COV2/RT-PCR (test Negative Not Detected, Negative, code = 1145631) See external report for linked test SARS-COV-[address] [facility] (test code = 5420953) Negative result for this test determines that [...] individuals suspected of COVID-19 by their healthcare provider.This test [...] justifying the authorization of the emergency use ofin vitro diagnostic tests for detection and/or diagnosis of COVID-19 is terminated under Section 564(b)(2) of the Act or the EUA is revoked under Section 564(g) of the Act.Fact Sheet for Healthcare Prov iders:https://www.[employer].com/sites/default/files/product/documents/Fact_Sheet_HC _Aqnhdhwcl_Dine_BXML-FuE-9.pdfFact Sheet for Healthcare Patients:https://www.[employer].com/sites/default/files/product/docume nts/Zabm_Ukijt_Onxlufbq_Ctdx_HAZD-PeA-3.pdfPerforming Laboratory:[facility], [place] [address]B-FYPK NATRIURETIC FACTOR (BNP)2020-04-24 12:38:00 Test Item Value Reference Range Interpretation Comments B-TYPE NATRIURETIC PEPTIDE (BEAKER) 423 pg/mL 0-100 H (test code = 700) Efficiency Clerk ID - ADMINPOCT-GLUCOSE [id number] 12:30:00 Test Item Value Reference Range Interpretation Comments POC-GLUCOSE METER 175 mg/dL 70-110 H : TESTED A T [facility] [address] (BEAKER) (test code [address], = 1538) [place] [address]: Efficiency Clerk/Techni lili ID = [id number] for Alvin Dumont POCT-GLUCOSE [id number] 05:52:00 Test Item Value Reference Range Interpretation Comments POC-GLUCOSE METER 178 mg/dL 70-110 H : TESTED A T [facility] [address] (BEAKER) (test code [address], = 1538) [place] [address]: Efficiency Clerk/Techni lili ID = [id number] for Nwad iufu, Martina IRON, TIBC, % SAT. (WITHOUT FERRITIN)2020-04-24 04:48:00 Test Item Value Reference Range Interpretation Comments IRON (BEAKER) (test code = 547) 41.0 ug/dL 45.0-170.0 L TOTAL IRON BINDING CAPACITY 300 ug/dL 250-550 (BEAKER) (test code = 769) IRON % SATURATION (2) (BEAKER) 14 % 20-55 L (test code = 2590) Efficiency Clerk ID - ADMINBASIC METABOLIC [id number] 04:46:00 Test Item Value Reference Range Interpretation Comments SODIUM (BEAKER) 139 meq/L 135-148 (test code = 381) POTASSIUM (BEAKER) 4.1 meq/L 3.6-5.5 (test code = 379) CHLORIDE (BEAKER) 102 meq/L 98-106 (test code = 382) CO2 (BEAKER) (test 26 meq/L 20-29 code = 355) BLOOD UREA NITROGEN 10 mg/dL 10-26 (BEAKER) (test code = 354) [...] S NOT APPLICABLE FOR DIALYSIS PATIEN TS. Efficiency Clerk ID - ADMINCBC W/PLT COUNT & AUTO [id number] 04:17:00 Test Item Value Reference Range Interpretation [...] PERCENT (BEAKER) (test code = 2801) POCT-GLUCOSE [id number] 21:35:00 Test Item Value Reference Range Interpretation Comments POC-GLUCOSE METER 185 mg/dL 70-110 H : TESTED A T [facility] [address] (BEAKER) (test code [address], = 1538) [facility] [address]: Efficiency Clerk/Techni lili ID = [id number] for Tanvi Ramirez T4, [id number] 17:20:00 Test Item Value Reference Range Interpretation Comments FREE T4 (BEAKER) (test code = 655) 1.26 ng/dL 0.90-1.80 Efficiency Clerk ID - ADMINTSH/FREE T4 IF [id number] 17:06:00 Test Item Value Reference Range Interpretation Comments THYROID STIMULATING HORMONE 0.140 uIU/mL 0.350-5.500 L (BEAKER) (test code = 772) Efficiency Clerk ID - ADMINTROPONIN [id number] 15:59:00 Test Item Value Reference Range Interpretation [...] failure, acidosis, acute neurological disease, and persistent tachyarrhythmia.Efficiency Clerk ID - ADMINLIPID [id number] 15:54:00 Test Item Value Reference Range Interpretation [...] Borderline 130-159 High 160-189 Very High >=190 Efficiency Clerk ID - ADMINOperator ID - ADMINOperator ID - ADMINOperator ID - ADMINOperator ID - ADMINOperator ID - ADMINCT, CHEST WITH IV CONTRAST- PE TEST [id number] 15:52:00Reason for exam:->SHORTNESS OF BREATHWhat is the patient's sedation requirement?->No SedationFINAL REPORT EXAM: CT Chest WITH contrast- Pulmonary Embolism Protocol INDICATION: Shortness of breath COMPARISON: Chest x-ray dated the same day TECHNIQUE:Chest was scanned utilizing a multidetector helical scanner from the lung apex through the level of the diaphragm after administration of IV contrast. Thin section reconstructions were obtained with special concentration on the pulmonary arteries. Coronal and sagittal reformations were obtained. Pulmonary embolism protocol was performed. IV CONTRAST: 100 cc of Isovue 370 RADIATION DOSE: Total DLP: 534 mGy*cm Dose modulation,iterative reconstruction, and/or weight based adjustment of the mA/kV was utilized to reduce the radiation dose to as low as reasonably achievable. COMPLICATIONS: None FINDINGS: LINES/ TUBES: None. PULMONARY ARTERIES: Negative for saddle, main or proximal segmental pulmonary embolus. Diffuse motion art ifact limits further evaluation. Main pulmonary artery measures up to 3.2 cm, mildly enlarged. LUNGSAND AIRWAYS: Lungs are negative for consolidation. Large airways are patent. No suspicious pulmonarynodule or mass is identified. PLEURA: Trace left [...] of T12. Additional mild to moderate scattered degenerativechanges are noted. Osseous structures are demineralized. SOFT TISSUES: Unremarkable. IMPRESSION: 1. Negative for central embolism or secondary signs of right heart strain. Distal segmental and subsegmental plantar branches are limited in evaluation due to diffuse motion artifact.2. Enlarged main pulmon [place] artery measuring up to 3.2 cm can be seen in patients with pulmonary arterial hypertension.3. Trace left pleural effusion. Signed: Bradley Vanegas MDReport Verified Date/Time: 04/23/2020 15:52:11 Reading Location: [facility] Radiology Reading Room C-REACTIVE [id number] 15:50:00 Test Item Value Reference Range Interpretation Comments C-REACTIVE PROTEIN (BEAKER) (test 0.54 mg/dL 0.00-0.50 H code = 676) Efficiency Clerk ID - ADMINURINALYSIS W/ [id number] 15:29:00 Test Item Value Reference Range Interpretation [...] 1659) WBC UA-MANUAL (BEAKER) (test code 10-20 /HPF = 1661) SOURCE(BEAKER) (test code = 2795) BASIC METABOLIC [id number] 15:03:00 Test Item Value Reference Range Interpretation [...] S NOT APPLICABLE FOR DIALYSIS PATIEN TS. Efficiency Clerk ID - ADMINHEMOGLOBIN [id number] 15:01:00 Test Item Value Reference Range Interpretation Comments HEMOGLOBIN A1C (BEAKER) (test code = 6.6 % 4.3-6.1 H 368) Efficiency Clerk ID - [id number] 14:19:00 Test Item Value Reference Range Interpretation Comments CREATININE (BEAKER) 0.84 mg/dL 0.50-1.20 Specimen moderately (test code = 358) hemolyzed EGFR (BEAKER) (test 66 mL/min/1.73 ESTIMA ANA GFR IS code = 1092) sq m NOT ACCURATE CREATININE CLEARANCE IN PREDICTING GLOMERULAR FILTRATION RATE . ESTIMATED GFR I S NOT APPLICABLE FOR DIALYSIS PATIEN TS. Efficiency Clerk ID - ADMINRAD, CHEST, 1 VIEW, NON [id number] 13:07:00Reason for exam:->SHORTNESS OF BREATHShould this be performed at the bedside?->Yes FINAL REPORT CLINICAL HISTORY: SHORTNESS OF BREATH TECHNIQUE: 1 view of the chest. COMPARISON: 04/06/2020 IMPRESSION: Mildly prominent lower lung markings are unchanged. There is nonew lobar consolidation. Mild blunting of the left costophrenic angle is unchanged. The cardiomediastinal silhouette is magnified by technique. A lower thoracic compression fracture is again seen. Signed: Alysha Carolina MDReport Verified Date/Time: 04/23/2020 13:07:24 Reading Location: [facility] Radiology Reading Room B-TYPE NATRIURETIC FACTOR (BNP)2020-04-23 13:04:00 Test Item Value Reference Range Interpretation Comments B-TYPE NATRIURETIC PEPTIDE (BEAKER) 463 pg/mL 0-100 H (test code = 700) Efficiency Clerk ID - ADMINTROPONIN [id number] 12:56:00 Test Item Value Reference Range Interpretation [...] failure, acidosis, acute neurological disease, and persistent tachyarrhythmia.Efficiency Clerk ID - ADMINCBC W/PLT COUNT & AUTO [id number] 12:47:00 Test Item Value Reference Range Interpretation [...] (BEAKER) (test code = 2801) BASIC METABOLIC [id number] 11:19:00 Test Item Value Reference Range Interpretation [...] 9.4 MG/DL 8.4-10.2 N CA) BASIC METABOLIC [id number] 11:12:00 Test Item Value Reference Range Interpretation [...] code = MG/DL 8.7-9.7 CA) CBC W/AUTO [id number] 11:02:00 Test Item Value Reference Range Interpretation [...] K/mm3 0.0-0.1 N NRBC#) Novel Coronavirus 2018 [id number] 08:26:00 Test Item Value Reference Range Interpretation Comments Novel Coronavirus Not Detected Not Detected Testing wa s performed 2019 Inhouse (test using the Aptima code = COVNONPUI) SARS-CoV-2 assay.This nucleic acid amplification t est was developed and itsperformance characteristics determined by [facility]. Nucleic acid amplification t ests include [...] ame gnosis of COVID-19 infect ion under qbunjrf121(b)(1 ) of the Act, 21 U.S.C. 360bbb-3(b) [...] detected) resul t in this assay.Performed At: [facility] [id number] silke Suero MD Ph:[phone] RAD, CHEST, 2 [id number] 11:41:00Reason for Exam:->sobFINAL REPORT History: Shortness of breath. FINDINGS: Compared with January 15, 2018, the heart and mediastinum are stable. As before, the heart is mildly enlarged. Moderate atherosclerotic calcification of the aorta is present. Mild increased pulmonary vascularity is present without overt edema. Moderate compression deformity of a vertebral body in the thoracolumbar region is noted a nd appear stable since the previous study. IMPRESSION: 1. Cardiomegaly, unchanged. No acute cardiopulmonary abnormalities. 2. Vertebral compression fracture, stable since the prior exam, likely chronic. Signed: Trish Bowen Verified Date/Time: 04/06/2020 11:41:33 Reading Location: [facility] Radio logy Reading Room [id number] 19:26:00 Test Item Value Reference Range Interpretation Comments PROTMAYCO (BEBIA) (test code = 759) 10.5 sec 9.3-12.0 [...] Output)Final Information (Auto Output)Final Information (Auto Output)TROPONIN [id number] 19:20:00 Test Item Value Reference Range Interpretation [...] acute neurological disease, and persistent tachyarrhythmia.COMPREHENSIVE METABOLIC [id number] 19:14:00 Test Item Value Reference Range Interpretation [...] = 380) CBC W/PLT COUNT & AUTO [id number] 18:56:00 Test Item Value Reference Range Interpretation [...] = 2801) SCR MAMM BILATERAL LAMBERTO CAD [id number] 11:44:07 - SCR MAMM BILATERAL LAMBERTO CAD DIGITALBILATERAL DIGITAL SCREENING MAMMOGRAM 3D/2D WITH CAD: 11/22/2018 CLINICAL: Asymptomatic. Digital breast tomosynthesis was performed in addition to routine CC and MLOviews. Current mammographic images were evaluated by either a [employer] M-Vu or a [employer] ImageChecker CAD (computer aided detection system). Comparison is made to exams dated 01/17/2017 mammogram, 09/17/2015 mammogram, [facility], 01/[facility]2011 mammogram - [facility], 11/11/2013 mammogram, and 11/11/2013 [facility]. The tissue of both breasts is heterogeneously dense. This may lower the sensitivity of mammography. There alyse biopsy clip in the left breast. No suspicious mass, architectural distortion, malignant type calcification, or lymph node abnormality detected. Breast architecture is stable compared to prior exams.IMPRESSION: NEGATIVEThere is no mammographic evidence of malignancy. Resume annual screening mammography in one year. 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 COMPARISON: None FINDINGS: The car diac silhouette is within normal limits. Mediastinum is unremarkable. Lungs are clear. Wedge deformity of the lower thoracic vertebral body noted, likely old.. Soft tissues appear unremarkable. IMPRESSION: No acute cardiopulmonary disease. Signed: Fabian Mosqueda MDReport Verified Date/Time: 01/15/2018 13:41:17 Reading Location: [facility] Radiology Reading Room Electronically signed by: FABIAN MOSQUEDA M.D. on01/15/2018 01:41 PM Notes Date/Time Note Provider Source 2020-04-25 15:19:07-00:00 ALINA SHANNON [facility] OPERATIVE/PROCEDURE REPORT VINCE SANDERS FACILITY: [facility] Billing #: [id number] Room: [address] [place] [address] MR #: [id number] : 1945 DATE OF PROCEDURE: 04/24/2020 SURGEON: Alina Shannon MD PROCEDURE: Lexiscan Myoview stress test. INDICATION: Chest pain, history of coronary yannick ry disease, status post stent. DESCRIPTION OF PROCEDURE: The patient underwent Lexiscan Myoview stress test one-day rest stress protocol . EKG part of the stress test has been dictated separately. NUCLEAR IMAGING: She received 11 millicuries of 99 technetium Myoview for rest images and 32 millicuries of 99 M technetium Myoview for stress images. SPECT images were shakeel en per protocol. RESULTS: Review of SPECT images demonstrate a la rge fixed defect involving the anterior wall and apex sugg estive of the apical infarct. No definite reversible ischemia is noted. LV systolic function is depressed with calculated e jection fraction of 28%. Marked hypokinesis of anterior wall and apex noted. IMPRESSION: 1. 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 No definite reversible ischemia noted. 2. LV systolic function is depressed with calcul ated ejection fraction of 28%. SKG/MODL /[id number] cc: Ivania Frederick MD 2020-04-23 19:05:42-00:00 ESTHER DRAKE [facility] CONSULTATION VINCE SANDERS FACILITY: [facility] Billing #: [id number] Room: [facility] AS41 MR #: [id number] : 1945 DATE OF ADMISSION: 04/23/2020 DATE OF CONSULTATION: 04/23/2020 REQUESTING PHYSICIAN: QUALITY CONTROL COORDINATOR: Esther Drake Jr, MD Cardiology Note REASON FOR CONSULTATION: The patient is seen in consultation because of shortness of breath. CURRENT LABS: Potassium is 4.6, creatinine is 0. 84. Troponin is minimally elevated. Her BNP level is 463. LDL is 38. Free T4 is normal. Chest CT protocol was negative for central pulmonary embolism. There was some dilation of t he pulmonary artery that may suggest pulmonary hypertension. REVIEW OF SYSTEMS: NEUROLOGIC: There is no overt TIA or paralysis. GI: Negative for nausea, vomiting, or diarrhea. : Significant for hematuria or dysuria. RESPIRATORY: Remarkable for shortness of breath that was somewhat dramatic. PAST MEDICAL HISTORY: Significant for congestive heart failure, coronary artery disease, myocardial inf arction, coronary stenting recently done; diabetes mellit us; hypertension; and hyperlipidemia. She had on a r ecent angio apical aneurysm. CURRENT MEDICATIONS: Included: 1. Aspirin. 2. Bumex. 3. Citalopram. 4. Celexa. 5. Plavix. 6. Zetia. 7. Levothyroxine. 8. Metformin. 9. Metoprolol 25 mg. 10. Potassium. 11. Ranolazine. 12. Primidone. 13. Mysoline. 14. Rosuvastatin. 15. Spironolactone. ASSESSMENT: 1. Shortness of breath, possibly likely due to s ome degree of LV dysfunction, which appears to be moderate at this time, EF could be 40% with an apical aneurysm. 2. Cannot exclude some degree of chronic obstruc tive pulmonary disease. 3. Pulmonary hypertension. 4. Elevated troponin, recent coronary stenting w ith no active chest pains. PLAN OF MANAGEMENT: At this point in time, monit or this patient and may be the question is whether we ne ed to repeat some ischemic workup or not versus repeat echoca rdiogram to look at LV function. I looked at the pulmonary a rtery pressures via an echocardiogram indirectly. RCT/MODL /[id number] 2020-04-15 15:09:00-00:00 [id number] [facility] [address] [place] [address] PATIENT NAME: VINCE SANDERS ADMIT DATE: 04/15/20 ACCOUNT NO: [id number] ROOM NO: AGE: 75 REPORT TYPE: OPERATIVE REPORT SEX: F ADMITTING PHYSICIAN: ATTENDING PHYSICIAN:Esther Drake Jr, MD OPERATION DATE: INDICATIONS: A 75-year-old female with recurrent angina, increasing in frequency, previous coronary stenting, and myoca rdial infarction. PREOPERATIVE DIAGNOSIS: POSTOPERATIVE DIAGNOSIS: PROCEDURE: LIGHT RAIL TRAIN OPERATOR: Esther Drake Jr., MD CONSTRUCTION PIT WORKER: ANESTHESIA: Versed and local anesthesia. ESTIMATED BLOOD LOSS: 5 mL. CLOSURE DEVICE USED: Angio-Seal. COMPLICATIONS: None observed. DESCRIPTION OF PROCEDURE: With the help of fluoroscopy pressure monitoring and a guidewire, we inserted a 6-Ivorian sheath into right femoral artery. We then cannulated left coronary system. Multiple views of this artery were obtained with hand injection. Right coronary catheter was used to cannulate the RCA. Multiple views of this artery were obtained with hand injection. LV angiogram was done with a pigtail catheter in HERMAN and ANGOLAN projections using about 20 and then 10 mL of contrast. FINDINGS: Include the following; anteroapical hy pokinesia is noted. Ejection fraction could be 40% to 45% . On the ANGOLAN projection, there might be a hint of a small apical aneurysm dyskinetic segment. FINDINGS: Include the following. 1. The left main was patent. 2. The LAD is the site of a previous rochelle g stent, likely multiple stents. It is widely patent. 3. The circumflex at the dis meredith tip before it bifurcates to obtuse marginal had maybe a 70% lesion. This probably was also a 2.5 mm segment. 4. The right coronary artery was severely diseas ed. Proximally, it in the PATIENT NAME: VINCE SANDERS ACCOUNT #: [id number] middle third may have an 80% lesion, more distally before the bifurcation a 90% lesion. We then proceeded to coronary intervention of th e right coronary artery. We gave this patient Angioma x, switched over to guiding catheter in the form of a mammary catheter with side holes. We then adva nced a 2.0 balloon over the Whisper wire with a 2.0 balloon, predila ana both lesions and then came in with the first stent. The first stent was 16 mm and deployed to a diameter of about 2.8 mm. The next stent that followed covered the more proximal lesion. This was a 32-mm stent dilated again up to about 2.83 in diameter. Repeat injection showed ANGEL flow improving from 2 to 3 w ith 0 residual stenosis. The artery seemed to plump up after coronary stenting. CONCLUSION: 1. Coronary artery disease, patent LAD stent. 2. A 70% short segment circumflex lesion. 3. The 80% to 90% RCA lesions treated with 2 cor onary stents, drug-eluting Synergy brand. PLAN AND MANAGEMENT: Continue dual antiplatelet, beta blockers, aspirin, statins, and Zetia. Outpatient followup has been set up already. Dictated By: Esther Drake Jr, MD WT: OP:ZSONIA/BRANDO/NIKKI Conf#: [id number]/DID#: [id number] Authenticated by Esther Drake MD On 04/16/2020 04 :30:07 PM Electronically Signed by Esther Drake Jr, MD o n 04/16/20 at 1630 PATIENT NAME: VINCE SANDERS ACCOUNT #: [id number] 2020-04-15 15:04:00-00:00 [facility] ([facility]) Clinical Note REPORT#:[id number] REPORT STATUS: Signed DATE:04/15/20 TIME: 1504 PATIENT: VINCE SANDERS UNIT #: [id number] ROOM/BED: : 47 AGE: 75 SEX: F ATTEND: Esther Drake Ch, Jr, MD ADM AUTHOR: Esther Drake Jr, MD * ALL edits or amendments must be made on the [employer]/computer document * Clinical Note Note: [id number] lad stent patent cx short segment 70% RCA 80 and 90 percent lesions 32 by 2,8stent 2.8 by 16 stent. 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
[2022-12-30 23:05] VITALS: BMI 26.2
[2022-12-30] MEDS ORDERED: GLUCAGON 1 MG/VIAL IM PRN (23:24)
[2022-12-30] MEDS ORDERED: D50W 25 GM/50 ML SYRINGE IV PRN (23:24)
[2022-12-30] MEDS ORDERED: D10W 125 ML IV PRN (23:36)
[2022-12-31] MEDS: LEVOTHYROXINE SOD 0.1 MG TAB PO SCH (05:23)
[2022-12-31] MEDS: METOPROLOL TAR 25 MG TAB PO SCH (05:23)
[2022-12-31] MEDS: INSULIN -REGULAR HUMAN 50 UNIT/0.5 ML ML SQ SCH ×4 (06:52→20:05)
[2022-12-31] MEDS: CEFTRIAXONE 1,000 MG in NA CHLORIDE 0.9% 50 ML IVPB SCH (07:11)
[2022-12-31 07:32] LABS: Absolute Lymphocytes (CBC) 1.6 K/uL (0.7-4.9); Hematocrit 32.5 % (36.0-45.0); Lymphocytes % 35.2 % (15.3-44.8); MCV 87.7 fL (80-100); RBC Red Blood Cell Count 3.71 M/uL (3.86-4.86)
[2022-12-31] MEDS: METFORMIN HCL 500 MG TAB PO SCH ×2 (08:00→17:03)
[2022-12-31] MEDS ORDERED: CLOPIDOGREL 75 MG TABLET PO SCH (08:00)
[2022-12-31] MEDS ORDERED: BUMETANIDE 1 MG TABLET PO SCH (08:00)
[2022-12-31] MEDS ORDERED: METFORMIN HCL 500 MG TAB PO SCH (08:00)
[2022-12-31] MEDS ORDERED: ROSUVASTATIN 10 MG TAB PO SCH (08:00)
[2022-12-31] MEDS: TRELEGY 100 MCG IH SCH (08:00)
[2022-12-31 08:06] LABS: Albumin 2.8 g/dL (3.4-5.0); Magnesium 1.7 mg/dL (1.6-2.4); Potassium 3.1 mEq/L (3.5-5.1); Prealbumin 13.1 mg/dL (20-40)
[2022-12-31] MEDS: CARBIDOPA/LEVODOPA 25/100 TAB PO SCH ×3 (08:39→20:02)
[2022-12-31] MEDS: MAGNESIUM OXIDE 400 MG TAB PO SCH (08:39)
[2022-12-31] MEDS: lisinopriL 5 MG TAB PO SCH (08:40)
[2022-12-31] MEDS: CITALOPRAM 10 MG TABLET PO SCH (08:41)
[2022-12-31] MEDS: ASPIRIN EC 81 MG TAB PO SCH (08:41)
[2022-12-31] MEDS: ROSUVASTATIN 10 MG TAB PO SCH (20:02)
[2022-12-31] MEDS: APIXABAN 2.5 MG TABLET PO SCH (20:02)
[2022-12-31] MEDS: EZETIMIBE 10 MG TAB PO SCH (20:02)
[2022-12-31] MEDS: PRIMIDONE 50 MG TAB FT SCH (20:02)
[2022-12-31] MEDS: GABAPENTIN 100 MG CAP PO SCH (20:02)
[2022-12-31] MEDS: CRANBERRY FRUIT EXTRACT 200 MG CAP PO SCH (20:02)
[2022-12-31] MEDS: INSULIN GLARGINE 100 UNIT/ML SQ SCH (20:05)
--- NOTE | 2022-12-31 21:29 | HP ---
Date of Admission: 12/30/2022 [facility]Dju[facility] History And Physical Time Of Service: 6 p.m. Chief Complaint: Back and leg pain and weakness. History Of Present Illness: Ms. Delgadillo is a 77-year-old right-handed patient with diabe miley mellitus, coronary artery disease, dementia, hypertension, hypothyroidism, and peripheral neuropa thy who was admitted to the inpatient rehabilitation unit with L4 kyphoplasty. The patient was initi ally brought in on 12/28 to [facility] with worsening confusion and was found to have a urin bethel tract infection. CT scan of the thoracic and lumbar spine identified multiple compression fractu res with loss of height. The patient's history was not clear at the time; however, there was a fall in October of this year after which she had a compression fracture at L4 that was treated in [place] by rosa elena nye. Following that, 2 weeks ago, she has been unable to ambulate and previously she used a wa lker and did household distances and used a wheelchair for longer distances. Her urinary tract infec tion was treated with Rocephin with a total of 5 days, 1 g daily and her pain was managed by [facility]. She also had poor fitting TLSO brace, which made it difficult for her to stand and ambulate. Current ly she has significant pain in the back and pain in the left lower extremity, in the thigh especially and some difficulty maintaining weight when attempting to stand on the left leg. Due to her course of pain and weakness in the lower extremities along with her significant urinary tract infection and dementia, the patient is determined to be a more appropriate candidate for inpatient rehabilitation a nd is therefore in admitted to the inpatient rehabilitation unit for physical, occupational, and spee ch therapy to help with her cognition. Past Medical History: As noted. Family History: Noncontributory. Past Surgical History: Cholecystectomy, cataract surgery, tonsillectomy, coronary angioplasty with s tent placement, and kyphoplasty. Allergies: NO KNOWN DRUG ALLERGIES. Social History: She lives with her children, her daughter. She does not drink alcohol or smoke ciga rettes. Current Medications: Eliquis 2.5 mg twice daily; aspirin 81 mg daily; Bumex 1 mg on Monday, , and Monday; Sinemet 25/100 three times daily; Rocephin to complete 1 more g tomorrow for 5 days; Celexa 40 mg daily; Plavix 75 mg daily; Zetia 10 mg at bedtime; gabapentin 100 mg at night; Semglee insulin 20 units at bedtime; Synthroid 0.2 mg daily; Prinivil 5 mg daily; Glucophage 500 mg twice nanci ly; magnesium oxide 400 mg daily; Lopressor 25 mg daily; Mysoline 150 mg at bedtime; Ranexa 500 mg da alma delia; Crestor 5 mg at bedtime; Aldactone 25 mg on Monday, Monday, and Monday. Laboratory Studies: White blood cell count 4.5, hemoglobin 11.3, hematocrit 32.5, and platelets 211. Sodium 143, potassium 3.1, chloride 113, carbon dioxide 27, BUN 10, creatinine 0.51, glucose ranged from 146 to 170, calcium 8.6, magnesium 1.7, prealbumin 13.1, albumin 2.8. X-ray/imaging: CT of the lumbar spine without contrast on 12/28/2022 shows age indeterminate reena prabha fracture of L4 vertebra; kyphoplasty changes with extravasation of the cement into the disk spac e and epidural space; age indeterminate compression fracture of T6, T12 and L1, appear chronic; sever e facet arthrosis and ligamentum flavum thickening at L3 through S1 that results in rwfelxrj-lf-jpjhh e bony canal stenosis; severe osteopenia. Magnetic resonance scan of the thoracic spine on 3: Compression fracture L4 vertebral body. Cement along the length of posterolateral epidural space superimposed on the degenerative changes at this level resulting in cgarxxio-ik-hgidek spinal canal stenosis. The left subarticular zone narrowing, which may contribute to impingement of the L4 descen ding nerve root. Chronic compression fractures at T6, T7, T12, and L1. Mild spinal canal stenosis f rom retropulsion of the L1 fracture. Moderate degenerative changes of the lumbar spine, most notable at L4-L5 and mild degenerative changes of the thoracic spine without significant spinal canal or for aminal stenosis. Review of Systems: The patient and her daughter report frequent urinary tract infections and tough to control and she gomez s had multiple antibiotics, most recently now on Rocephin for 5 days. Cultures were drawn prior to c oming to the rehab unit. We will attempt to see the results of the cultures to determine the appropr iateness of antibiotics. Otherwise, weakness in the left lower extremity, pain in the back, pain rad iating down the leg and mild confusion related to her dementia. No rash. No fevers. No nausea or v omiting. No abdominal pain. Physical Examination: Vital Signs: Blood pressure 147/62, pulse 65, respiratory rate 16, temperature 97, and oxygen satura tion 97%. Weight 166 pounds, height 5 feet 7 inches, BMI 26.1. General: Ms. Delgadillo is resting in bed. Her daughter is at the bedside. HEENT: She appears normocephalic, atraumatic. Sclerae anicteric. Oropharynx pink and moist. Neck: Supple. Chest: Clear. Heart: Regular. Extremities: No significant edema or cyanosis. She has good dorsalis pedis pulses bilaterally. Neurologic: She is alert and oriented to person, place, and situation. She follows commands without significant difficulty. Cranial nerves show no focal deficits on 2 through 12. On motor examinatio n in the upper extremities, no significant weakness noted. No asymmetries in the lower extremity, at least 4/5 proximally on the left and on the right and distally as well left and right. Sensation in tact with mild stocking-glove loss to light touch and temperature in the lower extremities. Current Level Of Functioning: Currently she is dependent for toilet and shower functioning. Upper b nitin dressing, maximum assistance as well as lower body dressing, maximum assistance. Footwear is at independent level. Sit to lying transfer is at a maximal assistance level. Bew-cb-hodlv, maximal as sistance. From bed to chair, maximum assistance. Ambulated with a rolling walker 2 feet, maximal as sistance. Mobilized a wheelchair 50 feet with moderate assistance. Rehabilitation And Medical Assessment And Plan: Ms. Delgadillo is admitted to the inpatient rehabilit [facility] unit with a rehabilitation impairment category 09 orthopedic and her impairment group code is 0 8.9 other orthopedic. Her etiologic diagnosis is L4 kyphoplasty. Active comorbids are coronary yannick ry disease, chronic back pain, chronic obstructive pulmonary disease, Alzheimer disease, depression, hypertension, hypothyroidism, obstructive sleep apnea, urinary tract infection, multiple vertebral ch ronic compression fractures, and diabetes mellitus. She has a chronic congestive heart failure with ejection fraction of 30% to 34%, last done on 11/2021. Plan: 1.She will have physical, occupational and speech therapy for 3.5 hours, 5 of 7 days. 2.Eliquis 2.5 mg twice daily along with aspirin 81 mg daily for stroke and DVT risk reduction. 3.Sinemet. She is on 25/100 three times daily for parkinsonism. 4.Celexa 40 mg daily for depression. 5.Gabapentin 100 mg daily for neuropathic pain. 6.Semglee insulin 20 units at bedtime for diabetes mellitus. 7.Synthroid 0.25 mg daily for hypothyroidism. 8.Lidocaine patch for chronic back pain. 9.Prinivil 5 mg daily for hypertension. 10.Magnesium oxide 400 mg daily for muscle spasms. 11.Glucophage 500 mg twice daily, continue along with Semglee. 12.Lopressor 25 mg daily. 13.Mysoline 150 mg daily. 14.Ranexa 500 mg daily. 15.Aldactone. 16.Note, she has hypokalemia and will have potassium replacement. Impact Of Comorbids: Currently she has hypokalemia, which may impact muscle efficiency and increased risk of muscle spasms. Potassium will be replaced. She is also on magnesium, which can be very hel pful. She does have multilevel lumbar compression fractures with canal stenosis, which are adversely impacting her ability to ambulate. She will work with a gait belt and walker at all times and have aggressive therapy to help improve her balance, coordination, gait, endurance, and ability to transfe r out of bed and dress upper and lower body. Rehab Specific Plan: 1.Again, she will have 3.5 hours, 5 of 7 days for physical, occupational, and speech therapy. 2.She will have [facility]cc to manage her diabetes, hypertension, parkinsonism, urinary tract in fection, dyslipidemia, and CHF. 3.Ms. Delgadillo and her daughter have good understanding of the reason for admission to the [facility] rehabilitation unit. She has a potential to make great improvement requiring physical, occupationa l, and speech therapy given her kyphoplasty related pain and inability to ambulate any significant di stances. If need be services from the Nutrition Service, Wound Care, Cardiology and Pulmonary Servic e will be consulted. 4.Given her complex medical condition and risk of further complications, rehabilitation cannot be sa rafael or effectively performed at a lower level of care such as a mcc facility. Barriers To Discharge: Currently, the ability to ambulate any significant distance has been impacted for a while by multiple fractures and she has had many falls and she has had kyphoplasty 2 weeks ago , which typically results in immediate pain relief, but she still has significant pain suggesting the re are additional nerve roots that are impacted in the lower back and gabapentin may be adjusted to a ssist with this. Estimated Length Of Stay: 10 days. Disposition: Home with children. Prognosis: Good. Rehabilitation Goals: 1.Perform upper and lower body dressing independently. 2.Perform transfer from bed to chair to toilet to shower independently. 3.Ambulate at least 250 feet with modified independence. 4.Up and down 10 steps with modified independence. 5.Continue cognitive functioning with supervision. I acknowledge, I personally performed a full physical examination on Ms. Georgia Delgadillo, no later th an 24 hours after admission to the inpatient rehabilitation unit and determined that she is able to t olerate the above course of treatment at an intensive level for a reasonable period of time. A detai led individualized plan of care for her will be completed by hospital day 4 based on her preadmission screen history and physical and therapy evaluations. DAVE Voice ID: [id number]
[2023-01-01] MEDS: LEVOTHYROXINE SOD 0.1 MG TAB PO SCH (05:30)
[2023-01-01] MEDS: METOPROLOL TAR 25 MG TAB PO SCH (05:30)
[2023-01-01] MEDS: CEFTRIAXONE 1,000 MG in NA CHLORIDE 0.9% 50 ML IVPB SCH (07:14)
[2023-01-01] MEDS: INSULIN -REGULAR HUMAN 50 UNIT/0.5 ML ML SQ SCH ×4 (07:30→20:07)
[2023-01-01] MEDS: LIDOCAINE 4% PATCH TOP SCH (07:39)
[2023-01-01] MEDS: CRANBERRY FRUIT EXTRACT 200 MG CAP PO SCH ×2 (07:40→20:06)
[2023-01-01] MEDS: lisinopriL 5 MG TAB PO SCH (07:40)
[2023-01-01] MEDS: ASPIRIN EC 81 MG TAB PO SCH (07:40)
[2023-01-01] MEDS: MAGNESIUM OXIDE 400 MG TAB PO SCH (07:40)
[2023-01-01] MEDS: METFORMIN HCL 500 MG TAB PO SCH ×2 (07:41→16:49)
[2023-01-01] MEDS: CARBIDOPA/LEVODOPA 25/100 TAB PO SCH ×3 (07:41→20:06)
[2023-01-01] MEDS: CITALOPRAM 10 MG TABLET PO SCH (07:42)
[2023-01-01] MEDS: POTASSIUM CL SA 10 MEQ TAB PO SCH (07:42)
[2023-01-01] MEDS: APIXABAN 2.5 MG TABLET PO SCH ×2 (07:43→20:07)
[2023-01-01] MEDS ORDERED: BUMETANIDE 1 MG TABLET PO SCH (08:00)
[2023-01-01] MEDS: TRELEGY 100 MCG IH SCH (08:00)
[2023-01-01] MEDS ORDERED: DOCUSATE NA/SENNA CONC 1 TAB PO PRN (18:53)
[2023-01-01] MEDS: INSULIN GLARGINE 100 UNIT/ML SQ SCH (20:05)
[2023-01-01] MEDS: PRIMIDONE 50 MG TAB FT SCH (20:06)
[2023-01-01] MEDS: EZETIMIBE 10 MG TAB PO SCH (20:06)
[2023-01-01] MEDS: ROSUVASTATIN 10 MG TAB PO SCH (20:06)
[2023-01-01] MEDS: GABAPENTIN 100 MG CAP PO SCH (20:06)
[2023-01-02] MEDS: METOPROLOL TAR 25 MG TAB PO SCH (05:29)
[2023-01-02] MEDS: LEVOTHYROXINE SOD 0.1 MG TAB PO SCH (05:30)
[2023-01-02] MEDS: INSULIN -REGULAR HUMAN 50 UNIT/0.5 ML ML SQ SCH ×4 (07:09→19:40)
[2023-01-02] MEDS: lisinopriL 5 MG TAB PO SCH (07:10)
[2023-01-02] MEDS: APIXABAN 2.5 MG TABLET PO SCH ×2 (07:10→19:39)
[2023-01-02] MEDS: CRANBERRY FRUIT EXTRACT 200 MG CAP PO SCH ×2 (07:10→19:38)
[2023-01-02] MEDS: CITALOPRAM 10 MG TABLET PO SCH (07:10)
[2023-01-02] MEDS: POTASSIUM CL SA 10 MEQ TAB PO SCH (07:10)
[2023-01-02] MEDS: MAGNESIUM OXIDE 400 MG TAB PO SCH (07:11)
[2023-01-02] MEDS: CARBIDOPA/LEVODOPA 25/100 TAB PO SCH ×3 (07:11→19:39)
[2023-01-02] MEDS: ASPIRIN EC 81 MG TAB PO SCH (07:11)
[2023-01-02] MEDS: METFORMIN HCL 500 MG TAB PO SCH ×2 (07:11→16:52)
[2023-01-02] MEDS: TRELEGY 100 MCG IH SCH (07:21)
[2023-01-02] MEDS: ERGOCALCIFEROL PO SCH (07:21)
[2023-01-02] MEDS: LIDOCAINE 4% PATCH TOP SCH (09:54)
[2023-01-02] MEDS: SPIRONOLACTONE 25 MG TABLET PO SCH (16:51)
[2023-01-02] MEDS: PRIMIDONE 50 MG TAB FT SCH (19:37)
[2023-01-02] MEDS: GABAPENTIN 100 MG CAP PO SCH (19:38)
[2023-01-02] MEDS: ROSUVASTATIN 10 MG TAB PO SCH (19:39)
[2023-01-02] MEDS: EZETIMIBE 10 MG TAB PO SCH (19:39)
[2023-01-02] MEDS: INSULIN GLARGINE 100 UNIT/ML SQ SCH (19:39)
[2023-01-03] MEDS: METOPROLOL TAR 25 MG TAB PO SCH (05:07)
[2023-01-03] MEDS: LEVOTHYROXINE SOD 0.1 MG TAB PO SCH (05:31)
[2023-01-03] MEDS: INSULIN -REGULAR HUMAN 50 UNIT/0.5 ML ML SQ SCH ×4 (07:22→20:26)
[2023-01-03] MEDS: LIDOCAINE 4% PATCH TOP SCH (07:23)
[2023-01-03] MEDS: lisinopriL 5 MG TAB PO SCH (07:23)
[2023-01-03] MEDS: CITALOPRAM 10 MG TABLET PO SCH (07:23)
[2023-01-03] MEDS: BUMETANIDE 1 MG TABLET PO SCH (07:24)
[2023-01-03] MEDS: MAGNESIUM OXIDE 400 MG TAB PO SCH (07:25)
[2023-01-03] MEDS: POTASSIUM CL SA 10 MEQ TAB PO SCH (07:25)
[2023-01-03] MEDS: APIXABAN 2.5 MG TABLET PO SCH ×2 (07:25→20:22)
[2023-01-03] MEDS: CRANBERRY FRUIT EXTRACT 200 MG CAP PO SCH ×2 (07:25→20:21)
[2023-01-03] MEDS: ASPIRIN EC 81 MG TAB PO SCH (07:25)
[2023-01-03] MEDS: CARBIDOPA/LEVODOPA 25/100 TAB PO SCH ×3 (07:25→20:22)
[2023-01-03] MEDS: METFORMIN HCL 500 MG TAB PO SCH ×2 (07:26→16:40)
[2023-01-03] MEDS: TRELEGY 100 MCG IH SCH (07:44)
[2023-01-03] MEDS: ROSUVASTATIN 10 MG TAB PO SCH (20:21)
[2023-01-03] MEDS: GABAPENTIN 100 MG CAP PO SCH (20:22)
[2023-01-03] MEDS: INSULIN GLARGINE 100 UNIT/ML SQ SCH (20:22)
[2023-01-03] MEDS: PRIMIDONE 50 MG TAB FT SCH (20:23)
[2023-01-03] MEDS: EZETIMIBE 10 MG TAB PO SCH (20:23)
--- NOTE | 2023-01-03 21:57 | PN ---
Date of Progress Note: 01/03/2023 Time Of Service: 9:00 a.m. Subjective: Ms. Delgadillo reports less pain in the back and actually the back brace when it is in pl sam causes more of a hindrance and pain than when she has it off. She did have kyphoplasty in the ck and pain is not significant as she is ambulating and working with the physical and occupational [place]. Review of Systems: She denies any fevers, chills. Mild myalgias, arthralgias. No rash. No headache. No weight change . No psychiatric issues. No gastrointestinal or genitourinary issues. Physical Examination: Vital Signs: Blood pressure 128/61, pulse 70, respiratory rate 16, temperature 97.3, oxygen saturat ion 97%. General: Ms. Delgadillo is resting comfortably in a chair. She is in no significant distress. HEENT: She appears normocephalic, atraumatic. Sclerae anicteric. Oropharynx is moist. Neck: Supple. Chest: Clear. Extremities: No clubbing or cyanosis noted in the lower extremities. Neurological: Mild diffuse weakness of upper and lower extremities. No focal sensory loss or coordi nation deficits noted. Laboratory Studies: White blood cell count 4.5, hemoglobin 11.3, platelets 211. Sodium 143, potassi um 3.1, chloride 113, creatinine 0.51. Prealbumin 13.1, albumin 2.8. Glucose ranged from 129-189. X-ray/imaging: No new x-rays or imaging. Medications: Eliquis 2.5 mg twice daily; aspirin 81 mg daily; Bumex 1 mg Monday, , Monday ; Sinemet 25/100 three times daily; Celexa 40 mg daily, Zetia 10 mg at bedtime; gabapentin 100 mg at bedtime; Synthroid 0.2 mg daily; Semglee insulin 20 units at bedtime; Prinivil 5 mg daily; magnesium oxide 400 mg daily; metformin 500 mg twice daily; Lopressor 25 mg daily; potassium 10 mEq daily; prim idone 150 mg at bedtime; Ranexa 500 mg daily; Crestor 5 mg at bedtime; Senokot S 2 at bedtime; Aldact one 25 mg daily. Current Functional Status: Currently, she did stand and pivot transfers with moderate to maximum ass istance using a rolling walker. Toilet transfers done with moderate to maximum assistance as well. She ambulated 10 feet within the room with maximum assistance using a rolling walker. With occupatio nal therapies, she don and doff socks with minimum assistance. She did push ups in a wheelchair 4 se ts and rest breaks to improve bilateral upper extremity strength. With speech therapy, she demonstra ana 4/4 recall after 3 minutes with 100% accuracy using visualization. Progress Towards Rehabilitation Goals: Ms. Delgadillo so far is making slow progress towards her goal s of becoming independent with upper and lower body dressing, toileting, transferring, ambulating at least household distances with modified independence, up and down 5 steps with modified independence and performing cognitive functioning with modified independence. Assessment: Ms. Delgadillo is a 77-year-old patient in the rehabilitation unit with Parkinson disease , L4 kyphoplasty following a fracture, debility, hypothyroidism, diabetes mellitus, hypertension, uri nary tract infection, multiple vertebral compression fractures, chronic obstructive pulmonary disease , coronary artery disease, congestive heart failure with low ejection fraction. Plan: 1.Physical and occupational therapy 3.5 hours, 5 of 7 days. 2.Eliquis 2.5 mg and aspirin 81 mg daily for DVT prophylaxis, Sinemet 25/100 three times daily for P arkinson's, gabapentin 100 mg daily for neuropathic pain, Semglee and Glucophage for diabetes mellitu s, Lopressor and Aldactone along with Prinivil for blood pressure management. Continue Mysoline, Syn throid and lidocaine patch. Her electrolytes are also addressed. Comorbids That Continue To Impact The Rehabilitation Process: She has multiple comorbid conditions r equiring medication adjustments, however, perhaps debility is more significant than those processes a nd she is again making slow progress overall. Her medications will continue and mild adjustments to Parkinson's medication may be required to help with any mobility and decreased stiffness and difficul ty initiating movement in addition to do her transfers. She also has multiple lumbar and compression fractures in the vertebral column, which is likely impacting her ability to move freely. She is not requiring it. She has elbow brace and she does not have significant pain and that is a plus for her . LB/MODL Voice ID: [id number] Report ID: [id number]
[2023-01-04] MEDS: METOPROLOL TAR 25 MG TAB PO SCH (05:20)
[2023-01-04] MEDS: LEVOTHYROXINE SOD 0.1 MG TAB PO SCH (05:36)
[2023-01-04] MEDS: INSULIN -REGULAR HUMAN 50 UNIT/0.5 ML ML SQ SCH ×4 (07:30→20:40)
[2023-01-04] MEDS: lisinopriL 5 MG TAB PO SCH ×2 (08:00→12:04)
[2023-01-04] MEDS: TRELEGY 100 MCG IH SCH (08:00)
[2023-01-04] MEDS: LIDOCAINE 4% PATCH TOP SCH (08:28)
[2023-01-04] MEDS: CRANBERRY FRUIT EXTRACT 200 MG CAP PO SCH ×2 (08:29→20:02)
[2023-01-04] MEDS: APIXABAN 2.5 MG TABLET PO SCH ×2 (08:29→20:01)
[2023-01-04] MEDS: POTASSIUM CL SA 10 MEQ TAB PO SCH (08:29)
[2023-01-04] MEDS: CITALOPRAM 10 MG TABLET PO SCH (08:29)
[2023-01-04] MEDS: METFORMIN HCL 500 MG TAB PO SCH ×2 (08:30→17:21)
[2023-01-04] MEDS: ASPIRIN EC 81 MG TAB PO SCH (08:30)
[2023-01-04] MEDS: CARBIDOPA/LEVODOPA 25/100 TAB PO SCH ×3 (08:30→20:01)
[2023-01-04] MEDS: MAGNESIUM OXIDE 400 MG TAB PO SCH (08:30)
[2023-01-04 08:45] LABS: Absolute Lymphocytes (CBC) 1.9 K/uL (0.7-4.9); Hematocrit 34.9 % (36.0-45.0); Lymphocytes % 25.8 % (15.3-44.8); MCV 88.9 fL (80-100); MPV 7.2 fL (7.6-11.3); RBC Red Blood Cell Count 3.92 M/uL (3.86-4.86)
[2023-01-04 09:01] LABS: Potassium 3.5 mEq/L (3.5-5.1)
[2023-01-04] MEDS: SPIRONOLACTONE 25 MG TABLET PO SCH (17:21)
[2023-01-04] MEDS: PRIMIDONE 50 MG TAB FT SCH (20:01)
[2023-01-04] MEDS: GABAPENTIN 100 MG CAP PO SCH (20:02)
[2023-01-04] MEDS: ROSUVASTATIN 10 MG TAB PO SCH (20:02)
[2023-01-04] MEDS: EZETIMIBE 10 MG TAB PO SCH (20:02)
[2023-01-04] MEDS: INSULIN GLARGINE 100 UNIT/ML SQ SCH (20:40)
--- NOTE | 2023-01-04 23:07 | PN ---
Date of Progress Note: 01/04/2023 Time Of Service: 1:30 p.m. Subjective: Ms. Delgadillo is resting comfortably in bed. She denies any significant pain except dallin e pain in the lower back, especially when lying down, but that is eased as she stands and ambulates. Review of Systems: No fevers, chills. No significant myalgias, arthralgias, rash, headache, weight change, or psychiatr ic issues. Physical Examination: Vital Signs: Blood pressure 119/59, pulse 62, respiratory rate of 16, temperature 97.7, oxygen satur ation 96%. General: Ms. Delgadillo is resting comfortably. She is in no acute distress. HEENT: She is normocephalic, atraumatic. Sclerae anicteric. Oropharynx pink, moist. Neck: Supple. Chest: Clear. Heart: Regular. Extremities: Show no significant edema or cyanosis. Neurologic: There is no focal weakness. There is diffuse weakness in lower extremities. Laboratory Studies: Complete blood count with differential shows no significant abnormalities. Hemo globin slightly low at 11.7. Chemistries are essentially unremarkable, although glucose is slightly elevated 120, calcium 8.9. X-ray/imaging: No new x-ray images. Medications: Medications have been reviewed and remained unchanged. Current Functional Status: Ms. Delgadillo is able to perform nfe-md-aaoxf transfers with minimum to c ontact guard assistance using verbal cues. She ambulated 16 feet with parallel bars with contact gua rd assistance. She ambulated 15 feet 3 times, 25 feet once, and 32 feet once with a rolling walker a nd moderate assistance using verbal cues. She did perform wheelchair mobilization covering 70 feet t wice with verbal cues. With occupational therapy, she performs dbr-tw-wblpj transfers with a rolling walker. She did have some fatigue with bilateral lower extremities. Did have some lower back pain during therapy session. With speech therapy, she demonstrates sustained attention for 3 minutes with 100% accuracy during cancellation task. She used visualization to recall 4/4 pictures after 5 minut es. Progress Towards Rehabilitation Goals: Ms. Delgadillo is making excellent progress towards her goals of becoming independent with cognitive functioning and speech. However, she is making slow progress of her ability to ambulate. There is some significant weakness in the lower extremities. Assessment: Ms. Delgadillo is a 77-year-old patient in the rehabilitation unit with L4 kyphoplasty an d debility in addition to Parkinson disease hypothyroidism, diabetes mellitus, hypertension, urinary tract infection. She has multiple chronic vertebral compression fractures, chronic obstructive pulmo nary disease, coronary artery disease, congestive heart failure. Plan: 1.Continue with physical, occupational, and speech therapy. 2.Continue with multiple medications for comorbid conditions outlined above including Sinemet, gabap entin, Semglee insulin, Lopressor, Aldactone, Prinivil, Mysoline, Synthroid. Comorbids That Continue To Impact Her Rehabilitation: She has significant weakness in lower extremit y and at this point, is only ambulating very short distances, although she is beginning to improve wi th a rolling walker and ambulating greater distances. She does have some stiffness and difficulty in itiating movement due to Parkinson disease and she will continue likely to improve with therapy if Pa rkinson's responds well and there is regular exercise. LB/MODL Voice ID: [id number] Report ID: [id number]
[2023-01-05] MEDS: METOPROLOL TAR 25 MG TAB PO SCH (05:24)
[2023-01-05] MEDS: LEVOTHYROXINE SOD 0.1 MG TAB PO SCH (05:25)
[2023-01-05] MEDS: INSULIN -REGULAR HUMAN 50 UNIT/0.5 ML ML SQ SCH ×4 (07:06→20:32)
[2023-01-05] MEDS: LIDOCAINE 4% PATCH TOP SCH (07:40)
[2023-01-05] MEDS: lisinopriL 5 MG TAB PO SCH (08:00)
[2023-01-05] MEDS: TRELEGY 100 MCG IH SCH (08:00)
[2023-01-05] MEDS: CRANBERRY FRUIT EXTRACT 200 MG CAP PO SCH ×2 (08:30→20:31)
[2023-01-05] MEDS: ASPIRIN EC 81 MG TAB PO SCH (08:31)
[2023-01-05] MEDS: CITALOPRAM 10 MG TABLET PO SCH (08:31)
[2023-01-05] MEDS: APIXABAN 2.5 MG TABLET PO SCH ×2 (08:31→20:31)
[2023-01-05] MEDS: MAGNESIUM OXIDE 400 MG TAB PO SCH (08:32)
[2023-01-05] MEDS: POTASSIUM CL SA 10 MEQ TAB PO SCH (08:32)
[2023-01-05] MEDS: METFORMIN HCL 500 MG TAB PO SCH ×2 (08:33→17:05)
[2023-01-05] MEDS: BUMETANIDE 1 MG TABLET PO SCH (08:35)
[2023-01-05] MEDS: CARBIDOPA/LEVODOPA 25/100 TAB PO SCH ×3 (08:35→20:31)
[2023-01-05] MEDS ORDERED: ONDANSETRON 4 MG (ODT) TAB PO PRN (12:30)
--- NOTE | 2023-01-05 14:15 | RAD REPORT ---
EXAM DESCRIPTION: Jaziel Single View01/05/2023 1:05 pm CLINICAL HISTORY: coughing COMPARISON: No comparisons TECHNIQUE: Portable AP view of the chest. FINDINGS: The lungs are clear. No pneumothorax or effusion. The cardiomediastinal contours are unre markable. IMPRESSION: No acute cardiopulmonary process.
[2023-01-05] MEDS: INSULIN GLARGINE 100 UNIT/ML SQ SCH (20:30)
[2023-01-05] MEDS: EZETIMIBE 10 MG TAB PO SCH (20:31)
[2023-01-05] MEDS: ROSUVASTATIN 10 MG TAB PO SCH (20:31)
[2023-01-05] MEDS: GABAPENTIN 100 MG CAP PO SCH (20:31)
[2023-01-05] MEDS: PRIMIDONE 50 MG TAB FT SCH (20:31)
[2023-01-05 21:06] LABS: Specific Gravity 1.012 (1.005-1.030); Urine Bacteria None Seen /HPF (<20); Urine Bilirubin NEGATIVE (Negative); Urine Blood Negative (Negative); Urine Clarity Clear (Clear); Urine Color Light-Yellow (Yellow); Urine Glucose NEGATIVE (Negative); Urine Protein NEGATIVE (Negative); Urine RBC <5 /HPF (None Seen); Urine Urobilinogen Normal (Normal); Urine pH 5.5 (5.0-7.0)
--- NOTE | 2023-01-05 22:04 | PN ---
Date of Progress Note: 01/05/2023 Time Of Service: 1:30 p.m. Subjective: Ms. Delgadillo is sitting, eating lunch. She actually had some coughing as she says the rice that she ate was not well cooked and caused her to choke a bit. No other complaints in terms of subjective. Review of Systems: No fevers, chills, nausea, vomiting, myalgias, arthralgias, rash. No psychiatric issues. No other c omplaints. Physical Examination: Vital Signs: Blood pressure 117/78, pulse 60, respiratory rate 16, temperature 97.6, oxygen saturati on 95%. General: Ms. Delgadillo again is sitting comfortably in chair, eating lunch, and she is coughing a li ttle bit because the rice apparently got stuck. She does report some pain in the right lower back. There is a pain patch there. An x-ray actually was ordered. The x-ray of the chest showed no acute cardio pulmonary and cardiothoracic processes. In terms of her deficits, she is recovering very well in terms of strength in the upper and lower extremities. However, she has very poor coordination an d very poor endurance and requires significant more time to begin improving. Laboratory Studies: Her prealbumin today is 13.6. It was 13.3 on the . Today is the 1st of Jan. X-ray/imaging: As noted above. Medications: Medications have been reviewed and remained unchanged. Current Functional Status: Today, she did sit to stand transfers with minimum assistance to contact guard assistance requiring verbal cues, stand and pivot transfers done with moderate to maximum joselito tance. She did ambulate 50 feet twice, 25 feet twice, and 30 feet once with a rolling walker and mod erate assistance with verbal cues being required. She self propelled a wheelchair 70 feet twice with verbal cues. With speech, she demonstrated recall of 4/4 items, after 3 minutes with minimum cues. Sustained attention task was demonstrated with structural activity with 93% accuracy. Progress Towards Rehabilitation Goals: Ms. Delgadillo is making a slow progress with her goals of amb ulating 50 feet with modified independence, transferring from bed to shower and doing stand and pivot activities with modified independence. She is making a slow progress with that. However, she is wo rking hard and has significant room for improvement. Assessment: Ms. Delgadillo is a 77-year-old patient with multiple vertebral compression fractures. S he has had L4 kyphoplasty and has had significant weakness incoordination in lower extremities and is making slow progress overall with her physical and occupational therapy. She does have Parkinson di sease, hypothyroidism, diabetes mellitus, hypertension, and urinary tract infection. Plan: 1.Continue with physical, occupational, and speech therapy 3.5 hours, 5 of 7 days. 2.Continue with all of her comorbid condition medications which are listed. Comorbid Conditions That Continue To Impact Rehabilitation Process: At this point, she is significan tly weak and stiff and is making slow progress. She will continue to benefit, but we will require pe rhaps longer time than the acute inpatient rehabilitation visit will allow, but again making progress overall with physical, occupational, and her speech therapy. AMAIRANI/MARGARET Voice ID: [id number] Report ID: [id number]
[2023-01-06] MEDS: METOPROLOL TAR 25 MG TAB PO SCH (05:28)
[2023-01-06] MEDS: LEVOTHYROXINE SOD 0.1 MG TAB PO SCH (05:28)
[2023-01-06] MEDS: INSULIN -REGULAR HUMAN 50 UNIT/0.5 ML ML SQ SCH ×4 (07:02→20:05)
[2023-01-06] MEDS: LIDOCAINE 4% PATCH TOP SCH (07:23)
[2023-01-06] MEDS: TRELEGY 100 MCG IH SCH (08:00)
[2023-01-06] MEDS: ASPIRIN EC 81 MG TAB PO SCH (08:07)
[2023-01-06] MEDS: lisinopriL 5 MG TAB PO SCH (08:07)
[2023-01-06] MEDS: CITALOPRAM 10 MG TABLET PO SCH (08:08)
[2023-01-06] MEDS: APIXABAN 2.5 MG TABLET PO SCH ×2 (08:09→19:44)
[2023-01-06] MEDS: CRANBERRY FRUIT EXTRACT 200 MG CAP PO SCH ×2 (08:09→19:44)
[2023-01-06] MEDS: POTASSIUM CL SA 10 MEQ TAB PO SCH (08:09)
[2023-01-06] MEDS: METFORMIN HCL 500 MG TAB PO SCH ×2 (08:09→16:55)
[2023-01-06] MEDS: MAGNESIUM OXIDE 400 MG TAB PO SCH (08:10)
[2023-01-06] MEDS: CARBIDOPA/LEVODOPA 25/100 TAB PO SCH ×3 (08:42→19:46)
--- NOTE | 2023-01-06 08:51 | P.RH.PN ---
Estimated Length of Stay: 11 Expected Discharge Date: 01/10/23 Discharge Disposition Plan: Home Family Support: Yes Vital Signs: Last Vital Signs Temp 96.9 F 01/06/23 07:16 Pulse 60 01/06/23 08:07 Resp 17 01/06/23 07:16 BP 140/68 01/06/23 08:07 Pulse Ox 96 01/06/23 07:16 Laboratory: Laboratory Last Values WBC 7.50 thou/uL (4.3-10.9) 01/04/23 08:19 RBC 3.92 M/uL (3.86-4.86) 01/04/23 08:19 Hgb 11.7 g/dL (12.0-15.0) L 01/04/23 08:19 Hct 34.9 % (36.0-45.0) L 01/04/23 08:19 MCV 88.9 fL (80-100) 01/04/23 08:19 MCH 29.8 pg (27.0-35.0) 01/04/23 08:19 MCHC 33.6 g/dL (32.0-36.0) 01/04/23 08:19 RDW 14.6 % (12.1-15.2) 01/04/23 08:19 Plt Count 276 thou/uL (152-406) 01/04/23 08:19 MPV 7.2 fL (7.6-11.3) L 01/04/23 08:19 Neutrophils % 66.1 % (41.7-73.7) 01/04/23 08:19 Lymphocytes % 25.8 % (15.3-44.8) 01/04/23 08:19 Monocytes % 6.4 % (3.3-12.3) 01/04/23 08:19 Eosinophils % 1.3 % (0-4.4) 01/04/23 08:19 Basophils % 0.4 % (0-1.3) 01/04/23 08:19 Absolute Neutrophils 4.9 K/uL (1.8-8.0) 01/04/23 08:19 Absolute Lymphocytes 1.9 K/uL (0.7-4.9) 01/04/23 08:19 Absolute Monocytes 0.5 K/uL (0.1-1.3) 01/04/23 08:19 Absolute Eosinophils 0.1 K/uL (0-0.5) 01/04/23 08:19 Absolute Basophils 0.0 K/uL (0-0.5) 01/04/23 08:19 Sodium 139 mEq/L (136-145) 01/04/23 08:19 Potassium 3.5 mEq/L (3.5-5.1) 01/04/23 08:19 Chloride 104 mEq/L (98-107) 01/04/23 08:19 Carbon Dioxide 32 mEq/L (21-32) 01/04/23 08:19 Anion Gap 6.5 mEq/L (5.0-15.0) 01/04/23 08:19 BUN 8 mg/dL (7-18) 01/04/23 08:19 Creatinine 0.71 mg/dL (0.55-1.02) 01/04/23 08:19 Est GFR (CKD-EPI) 89 ml/min (=/>90) L 01/04/23 08:19 Glucose 120 mg/dL (74-106) H 01/04/23 08:19 POC Glucose 118 mg/dL (65-120) 01/06/23 07:01 Calcium 8.9 mg/dL (8.5-10.1) 01/04/23 08:19 Magnesium 1.7 mg/dL (1.6-2.4) 12/31/22 07:22 Albumin 2.8 g/dL (3.4-5.0) L 12/31/22 07:22 Prealbumin 13.6 mg/dL (20-40) L 01/05/23 18:30 Urine Color Light-yellow (Yellow) 01/05/23 20:50 Urine Clarity Clear (Clear) 01/05/23 20:50 Urine pH 5.5 (5.0-7.0) 01/05/23 20:50 Ur Specific Arnold 1.012 (1.005-1.030) 01/05/23 20:50 Glucose (UA)(Auto) Negative (Negative) 01/05/23 20:50 Urine Ketones Negative (Negative) 01/05/23 20:50 Urine Blood Negative (Negative) 01/05/23 20:50 Urine Nitrite Negative (Negative) 01/05/23 20:50 Urine Bilirubin Negative (Negative) 01/05/23 20:50 Urine Urobilinogen Normal (Normal) 01/05/23 20:50 Ur Leukocyte Esterase Negative Sabrina/uL (Negative) 01/05/23 20:50 Urine RBC <5 /HPF (None Seen) 01/05/23 20:50 Urine WBC <5 /HPF (<5) 01/05/23 20:50 Ur Squamous Epith Cells None seen /HPF (None Seen) 01/05/23 20:50 U Non-Squamous Epi Cells <5 /HPF (None Seen) 01/05/23 20:50 Amorphous Crystals Trace /HPF (None Seen) 01/05/23 20:50 Urine Bacteria None seen /HPF (<20) 01/05/23 20:50 Urine Culture Reflexed Not needed 01/05/23 20:50 Urine Total Protein Negative (Negative) 01/05/23 20:50 Weight: 166 lb 9.6 oz Wound Present: Yes Closed Surgical Incision Present: No Negative Pressure Wound Therapy Present: No Physician Update: Making fair overall progress with all therapy. Labs reviewed and are stable. Min assistance with bed mobility. Max assistance with mobility. Walked 30' with. She did 15 on the BIMS. She has features of depression and will likely requires an antidepressant. 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 Please see the Rehabilitation Signature page for all necessary signatures.
[2023-01-06] MEDS: SPIRONOLACTONE 25 MG TABLET PO SCH (16:55)
[2023-01-06] MEDS: GLUCERNA SHAKE 237 ML CAN PO SCH ×2 (19:44→19:52)
[2023-01-06] MEDS: ARIPiprazole 5 MG TAB PO SCH (19:44)
[2023-01-06] MEDS: ROSUVASTATIN 10 MG TAB PO SCH (19:44)
[2023-01-06] MEDS: PRIMIDONE 50 MG TAB FT SCH (19:45)
[2023-01-06] MEDS: EZETIMIBE 10 MG TAB PO SCH (19:46)
[2023-01-06] MEDS: GABAPENTIN 100 MG CAP PO SCH (19:46)
[2023-01-06] MEDS: INSULIN GLARGINE 100 UNIT/ML SQ SCH (20:06)
[2023-01-07] MEDS: LEVOTHYROXINE SOD 0.1 MG TAB PO SCH (05:28)
[2023-01-07] MEDS: METOPROLOL TAR 25 MG TAB PO SCH (05:29)
[2023-01-07] MEDS: INSULIN -REGULAR HUMAN 50 UNIT/0.5 ML ML SQ SCH ×4 (07:13→20:06)
[2023-01-07] MEDS: GLUCERNA SHAKE 237 ML CAN PO SCH ×2 (08:00→20:00)
[2023-01-07] MEDS: TRELEGY 100 MCG IH SCH (08:00)
[2023-01-07] MEDS: BUMETANIDE 1 MG TABLET PO SCH (08:38)
[2023-01-07] MEDS: CITALOPRAM 10 MG TABLET PO SCH (08:38)
[2023-01-07] MEDS: CRANBERRY FRUIT EXTRACT 200 MG CAP PO SCH ×2 (08:38→20:05)
[2023-01-07] MEDS: LIDOCAINE 4% PATCH TOP SCH (08:38)
[2023-01-07] MEDS: APIXABAN 2.5 MG TABLET PO SCH ×2 (08:39→20:05)
[2023-01-07] MEDS: CARBIDOPA/LEVODOPA 25/100 TAB PO SCH ×3 (08:39→20:05)
[2023-01-07] MEDS: ASPIRIN EC 81 MG TAB PO SCH (08:39)
[2023-01-07] MEDS: POTASSIUM CL SA 10 MEQ TAB PO SCH (08:39)
[2023-01-07] MEDS: METFORMIN HCL 500 MG TAB PO SCH ×2 (08:39→17:19)
[2023-01-07] MEDS: lisinopriL 5 MG TAB PO SCH (11:01)
[2023-01-07] MEDS: MAGNESIUM OXIDE 400 MG TAB PO SCH (11:01)
[2023-01-07] MEDS: ROSUVASTATIN 10 MG TAB PO SCH (20:03)
[2023-01-07] MEDS: INSULIN GLARGINE 100 UNIT/ML SQ SCH (20:03)
[2023-01-07] MEDS: ARIPiprazole 5 MG TAB PO SCH (20:05)
[2023-01-07] MEDS: EZETIMIBE 10 MG TAB PO SCH (20:05)
[2023-01-07] MEDS: PRIMIDONE 50 MG TAB FT SCH (20:06)
[2023-01-07] MEDS: GABAPENTIN 100 MG CAP PO SCH (20:07)
[2023-01-08] MEDS: METOPROLOL TAR 25 MG TAB PO SCH (05:23)
[2023-01-08] MEDS: LEVOTHYROXINE SOD 0.1 MG TAB PO SCH (05:27)
[2023-01-08 06:29] LABS: Absolute Lymphocytes (CBC) 1.4 K/uL (0.7-4.9); Lymphocytes % 17.5 % (15.3-44.8); MCV 89.3 fL (80-100); MPV 7.2 fL (7.6-11.3); RBC Red Blood Cell Count 3.58 M/uL (3.86-4.86)
[2023-01-08 06:40] LABS: Magnesium 1.9 mg/dL (1.6-2.4)
[2023-01-08] MEDS: INSULIN -REGULAR HUMAN 50 UNIT/0.5 ML ML SQ SCH ×4 (07:30→20:55)
[2023-01-08] MEDS: LIDOCAINE 4% PATCH TOP SCH (07:56)
[2023-01-08] MEDS: APIXABAN 2.5 MG TABLET PO SCH ×2 (07:57→20:57)
[2023-01-08] MEDS: CITALOPRAM 10 MG TABLET PO SCH (07:57)
[2023-01-08] MEDS: ASPIRIN EC 81 MG TAB PO SCH (07:57)
[2023-01-08] MEDS: CRANBERRY FRUIT EXTRACT 200 MG CAP PO SCH ×2 (07:57→20:56)
[2023-01-08] MEDS: MAGNESIUM OXIDE 400 MG TAB PO SCH (07:57)
[2023-01-08] MEDS: METFORMIN HCL 500 MG TAB PO SCH ×2 (07:57→16:48)
[2023-01-08] MEDS: lisinopriL 5 MG TAB PO SCH (07:58)
[2023-01-08] MEDS: POTASSIUM CL SA 10 MEQ TAB PO SCH (07:58)
[2023-01-08] MEDS: CARBIDOPA/LEVODOPA 25/100 TAB PO SCH ×3 (07:58→21:04)
[2023-01-08] MEDS: GLUCERNA SHAKE 237 ML CAN PO SCH ×2 (07:59→20:00)
[2023-01-08] MEDS: TRELEGY 100 MCG IH SCH (08:00)
[2023-01-08] MEDS: EZETIMIBE 10 MG TAB PO SCH (20:56)
[2023-01-08] MEDS: INSULIN GLARGINE 100 UNIT/ML SQ SCH (20:56)
[2023-01-08] MEDS: PRIMIDONE 50 MG TAB FT SCH (20:57)
[2023-01-08] MEDS: ROSUVASTATIN 10 MG TAB PO SCH (20:57)
[2023-01-08] MEDS: ARIPiprazole 5 MG TAB PO SCH (20:57)
[2023-01-08] MEDS: GABAPENTIN 100 MG CAP PO SCH (20:58)
[2023-01-09] MEDS: METOPROLOL TAR 25 MG TAB PO SCH (05:31)
[2023-01-09] MEDS: LEVOTHYROXINE SOD 0.1 MG TAB PO SCH (05:32)
[2023-01-09] MEDS: INSULIN -REGULAR HUMAN 50 UNIT/0.5 ML ML SQ SCH ×4 (07:30→20:28)
[2023-01-09] MEDS: METFORMIN HCL 500 MG TAB PO SCH ×2 (07:48→16:56)
[2023-01-09] MEDS: CRANBERRY FRUIT EXTRACT 200 MG CAP PO SCH ×2 (07:48→20:27)
[2023-01-09] MEDS: MAGNESIUM OXIDE 400 MG TAB PO SCH (07:49)
[2023-01-09] MEDS: APIXABAN 2.5 MG TABLET PO SCH ×2 (07:49→20:27)
[2023-01-09] MEDS: CITALOPRAM 10 MG TABLET PO SCH (07:49)
[2023-01-09] MEDS: ASPIRIN EC 81 MG TAB PO SCH (07:49)
[2023-01-09] MEDS: POTASSIUM CL SA 10 MEQ TAB PO SCH (07:49)
[2023-01-09] MEDS: CARBIDOPA/LEVODOPA 25/100 TAB PO SCH ×3 (07:49→20:27)
[2023-01-09] MEDS: lisinopriL 5 MG TAB PO SCH (07:50)
[2023-01-09] MEDS: GLUCERNA SHAKE 237 ML CAN PO SCH (08:00)
[2023-01-09] MEDS ORDERED: DRISDOL (VITAMIN D=ERGOCALCIFEROL) 50000 UNIT CAP PO SCH (08:00)
[2023-01-09] MEDS: TRELEGY 100 MCG IH SCH (08:00)
[2023-01-09] MEDS: ERGOCALCIFEROL PO SCH (08:00)
[2023-01-09] MEDS: LIDOCAINE 4% PATCH TOP SCH (10:11)
[2023-01-09] MEDS: SPIRONOLACTONE 25 MG TABLET PO SCH (16:56)
[2023-01-09] MEDS: PRIMIDONE 50 MG TAB FT SCH (20:27)
[2023-01-09] MEDS: GABAPENTIN 100 MG CAP PO SCH (20:27)
[2023-01-09] MEDS: INSULIN GLARGINE 100 UNIT/ML SQ SCH (20:27)
[2023-01-09] MEDS: ROSUVASTATIN 10 MG TAB PO SCH (20:27)
[2023-01-09] MEDS: EZETIMIBE 10 MG TAB PO SCH (20:27)
[2023-01-09] MEDS: ARIPiprazole 5 MG TAB PO SCH (20:27)
[2023-01-09] MEDS: ENSURE PUDDING 4 OZ CUP PO SCH (20:28)
--- NOTE | 2023-01-09 22:28 | PN ---
Date of Progress Note: 01/09/2023 Time Of Service: 1 p.m. Subjective: Ms. Delgadillo is doing well. She just finished lunch and is happy with her progress mad e with all therapy. Her back pain is well controlled and she is ready for discharge. Review of Systems: No fevers, chills, nausea, vomiting, myalgias, arthralgias, rash, headache, or weight change. No psy chiatric issues. No other complaints. Physical Examination: Vital Signs: Blood pressure 132/61, pulse of 77, respiratory rate 16, temperature 97.8, and oxygen s aturation 99%. General: Ms. Delgadillo is doing well. She has no focal deficits as noted. She is again happy with her therapy. Her back pain is well controlled. Lungs: She has good air movement bilaterally. Extremities: No significant edema in the extremities. Laboratory Studies: No new laboratory studies except blood sugars ranged from 114 to 149. X-ray/imaging: No new x-ray or imaging. Medications: Medications have been reviewed and remain unchanged. She continues carbidopa 25/100 th ree times daily, aspirin, Abilify, Eliquis, Celexa, gabapentin, Semglee insulin, Synthroid, Prinivil, metformin, Lopressor, primidone, Crestor, and Aldactone. Current Functional Status: Currently, she did qaz-om-qcurg transfers with eitnrth-uy-fjmrlzzc assist ance and verbal cues. She performed stand and pivot transfers with pwvteae-xz-jrqjtval assistance. She did ambulate 5 to 8 feet 3 times, 15 feet twice, and 120 feet once with a rolling walker and mode rate assistance. She did require verbal cues for anterior weight shifting. She mobilized wheelchair 100 feet with verbal cues, maneuvering to increase upper extremity strength. With respiratory therapy manager apy, she did kzt-qk-iqvoq exercises 5 times with verbal cues to shift weight. She did fatigue when p ushing wheelchair. With her speech therapy, she has working memory with internal and external strate gies at 40% accuracy and minimum assistance. She recalled 4/4 unrelated pictures using short-term me adelso after 5 minutes. Progress Towards Rehabilitation Goals: She is making slow progress with her physical and occupationa l therapy goals of ambulating 250 feet with modified independence, going up and down 10 steps with mo dified independence, and dressing upper and lower body and transferring with modified independence. She is making better progress with her speech therapy becoming modified independence. Assessment: Ms. Delgadillo is a 77-year-old patient with multiple vertebral compression fractures sta tus post L4 kyphoplasty. She has significant weakness in the lower extremities and again is making s low overall progress with physical and occupational therapy. She does have Parkinson disease, which is a limiting factor and also hypothyroidism, diabetes mellitus, hypertension, urinary tract infectio n that is treated. Plan: 1.Continue with physical, occupational, and speech therapy for 3.5 hours, 5 of 7 days. 2.Continue with all medications as listed above. 3.We will continue to attempt to make adjustments to her Parkinson disease medications and her comor bid condition medications. Comorbids That Continue To Impact Rehabilitation: As noted, she has significant weakness in the lowe r extremities and is making slow progress with her ability to ambulate and stand. She is somewhat li mited by anxiety and worry, although there is again stiffness from Parkinson's limiting her. Pain is managed with a pain patch and muscle relaxants. AMAIRANI/MARGARET Voice ID: [id number] Report ID: [id number]
[2023-01-10] MEDS: METOPROLOL TAR 25 MG TAB PO SCH (05:08)
[2023-01-10] MEDS: LEVOTHYROXINE SOD 0.1 MG TAB PO SCH (05:08)
[2023-01-10] MEDS: CITALOPRAM 10 MG TABLET PO SCH (07:22)
[2023-01-10] MEDS: LIDOCAINE 4% PATCH TOP SCH (07:22)
[2023-01-10] MEDS: CRANBERRY FRUIT EXTRACT 200 MG CAP PO SCH ×2 (07:23→19:37)
[2023-01-10] MEDS: BUMETANIDE 1 MG TABLET PO SCH (07:23)
[2023-01-10] MEDS: ASPIRIN EC 81 MG TAB PO SCH (07:23)
[2023-01-10] MEDS: METFORMIN HCL 500 MG TAB PO SCH ×2 (07:24→17:22)
[2023-01-10] MEDS: MAGNESIUM OXIDE 400 MG TAB PO SCH (07:24)
[2023-01-10] MEDS: CARBIDOPA/LEVODOPA 25/100 TAB PO SCH ×3 (07:24→19:36)
[2023-01-10] MEDS: lisinopriL 5 MG TAB PO SCH (07:24)
[2023-01-10] MEDS: ENSURE PUDDING 4 OZ CUP PO SCH ×2 (07:25→19:39)
[2023-01-10] MEDS: POTASSIUM CL SA 10 MEQ TAB PO SCH (07:25)
[2023-01-10] MEDS: APIXABAN 2.5 MG TABLET PO SCH ×2 (07:26→19:38)
[2023-01-10] MEDS: INSULIN -REGULAR HUMAN 50 UNIT/0.5 ML ML SQ SCH ×4 (07:30→20:07)
[2023-01-10] MEDS: TRELEGY 100 MCG IH SCH (08:00)
[2023-01-10] MEDS: ARIPiprazole 5 MG TAB PO SCH (19:36)
[2023-01-10] MEDS: EZETIMIBE 10 MG TAB PO SCH (19:36)
[2023-01-10] MEDS: GABAPENTIN 100 MG CAP PO SCH (19:37)
[2023-01-10] MEDS: PRIMIDONE 50 MG TAB FT SCH (19:37)
[2023-01-10] MEDS: ROSUVASTATIN 10 MG TAB PO SCH (19:38)
[2023-01-10] MEDS: INSULIN GLARGINE 100 UNIT/ML SQ SCH (20:07)
[2023-01-10] MEDS ORDERED: CARBIDOPA/LEVODOPA 25/100 TAB PO SCH (21:00)
--- NOTE | 2023-01-10 22:53 | PN ---
Date of Progress Note: 01/10/2023 Time Of Service: 1:30 p.m. Subjective: Ms. Delgadillo is resting in bed. She is somewhat more stiff today, possibly in the sens e of her Parkinson's medications being off and that likely needs to be adjusted. She does have some low back pain and an additional lidocaine patch, now 2 will be placed on the back. Review of Systems: Again some myalgias in the lower back and more stiffness in the extremities. Physical Examination: Vital Signs: Blood pressure 115/65, pulse 84, respiratory rate 16, temperature 97.9, and oxygen satu ration 99%. Neurologic: Ms. Delgadillo does have masklike face and increased tone with some cogwheel rigidity in the upper and lower extremities that has been present and perhaps slightly worse today. Musculoskeletal: She does have pain in the lower back from the L4 fracture, which is kyphoplasty and some muscle spasms there. Laboratory Studies: No new laboratory studies except blood glucose ranged from 129 to 186. X-ray/imaging: No new x-rays or imaging. Medications: Medications will be adjusted to include Sinemet 25/100 four times daily from 3 times da alma delia. She will have 2 lidocaine patches placed in the back. She will have Senokot-S for constipation and spironolactone for fluid management. Continue Mysoline 150 mg at bedtime. Continue Synthroid f or hypothyroidism. Continue metformin for diabetes mellitus. Continue gabapentin for neuropathic pa in. Continue Celexa for depression. Continue Abilify as well. Current Functional Status: Today, she did sit to stand with mbhrlbsg-bj-wttvcpr assistance requiring verbal cues. Stand and pivot transfers done with maximum assistance using a rolling walker. She di d ambulate 5 to 8 feet twice with a rolling walker with maximum assistance. She mobilized wheelchair 75 feet twice with verbal cues and moderate assistance. With speech therapy, she needed maximum cue s to demonstrate sustained attention to an organizational thinking task. She was unable to hold 3 of 4 pieces of information and working memory for a functional task. With her occupational therapy, sh ela performed 2 sit to stands with a rolling walker with maximum assistance. Due to poor strength, she did require partial assistance for wheelchair to toilet transfer. Progress Towards Rehabilitation Goals: Ms. Delgadillo is making very slow progress towards goals incl uding her physical, occupational, and speech therapy goals to improve her cognitive functioning, rate of speech, and her processing of information. Also very slow progress with mobilization, that is tr ansferring from bed to chair, to wheelchair and ambulation also making very slow progress there. Assessment: Ms. Delgadillo is a 77-year-old patient with Parkinson disease, which slightly has worsen ed likely because of more off time. Her Sinemet dose adjusted from 3 times a day to 4 times a day an d that is just done today and she will be evaluated again by therapy to see if that makes a differenc e. She does have slow processing as well. She has depression and is on antidepressants for that. S he is on Eliquis 2.5 mg twice daily for DVT risk reduction. She has Semglee 20 units at bedtime and Glucophage 500 mg twice daily for diabetes mellitus. Continue Crestor for dyslipidemia and Aldactone for fluid management. Comorbids That Continue To Impact Her Rehabilitation Process: The Parkinson disease is significantly impacting her improvement as she has become more stiff and has more difficulty transferring and mobi lizing. Again, her Parkinson's medication has been adjusted. She also has depression and is on mult iple antidepressants already. LB/MODL Voice ID: [id number] Report ID: [id number]
[2023-01-11] MEDS: METOPROLOL TAR 25 MG TAB PO SCH (05:34)
[2023-01-11] MEDS: LEVOTHYROXINE SOD 0.1 MG TAB PO SCH (05:35)
[2023-01-11] MEDS: CRANBERRY FRUIT EXTRACT 200 MG CAP PO SCH ×2 (07:13→19:55)
[2023-01-11] MEDS: POTASSIUM CL SA 10 MEQ TAB PO SCH (07:13)
[2023-01-11] MEDS: ASPIRIN EC 81 MG TAB PO SCH (07:14)
[2023-01-11] MEDS: CITALOPRAM 10 MG TABLET PO SCH (07:14)
[2023-01-11] MEDS: APIXABAN 2.5 MG TABLET PO SCH ×2 (07:14→19:56)
[2023-01-11] MEDS: CARBIDOPA/LEVODOPA 25/100 TAB PO SCH ×6 (07:14→19:56)
[2023-01-11] MEDS: MAGNESIUM OXIDE 400 MG TAB PO SCH (07:14)
[2023-01-11] MEDS: METFORMIN HCL 500 MG TAB PO SCH ×2 (07:15→17:34)
[2023-01-11] MEDS: INSULIN -REGULAR HUMAN 50 UNIT/0.5 ML ML SQ SCH ×4 (07:30→19:56)
[2023-01-11] MEDS: ENSURE PUDDING 4 OZ CUP PO SCH ×2 (07:39→19:56)
[2023-01-11] MEDS: TRELEGY 100 MCG IH SCH (08:00)
[2023-01-11] MEDS: lisinopriL 5 MG TAB PO SCH (08:00)
[2023-01-11] MEDS: LIDOCAINE 4% PATCH TOP SCH (09:52)
[2023-01-11] MEDS ORDERED: LIDOCAINE 4% PATCH TOP ONE (13:56)
[2023-01-11] MEDS: SPIRONOLACTONE 25 MG TABLET PO SCH (17:34)
[2023-01-11] MEDS: ROSUVASTATIN 10 MG TAB PO SCH (19:55)
[2023-01-11] MEDS: ARIPiprazole 5 MG TAB PO SCH (19:55)
[2023-01-11] MEDS: PRIMIDONE 50 MG TAB FT SCH (19:55)
[2023-01-11] MEDS: EZETIMIBE 10 MG TAB PO SCH (19:55)
[2023-01-11] MEDS: GABAPENTIN 100 MG CAP PO SCH (19:56)
[2023-01-11] MEDS: INSULIN GLARGINE 100 UNIT/ML SQ SCH (19:57)
--- NOTE | 2023-01-11 21:35 | PN ---
Date of Progress Note: 01/11/2023 Time Of Service: 1:30 p.m. Subjective: Ms. Delgadillo is ambulating with the physical therapist. She is happy that she will be discharged home tomorrow. She has no new complaints. Reports feeling stronger if she has more endur ance. Review of Systems: Some myalgias, arthralgias, and generalized stiffness related to Parkinson's and some pain in the low er back where she had L4 kyphoplasty. Physical Examination: Vital Signs: Blood pressure 106/59, pulse 76, respiratory rate 16, temperature 97.8, and oxygen satu ration 98%. General: Ms. Delgadillo is standing and using the walker with the therapist behind holding onto gait belt. 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 Otherwise, her examination does not vale w any new deficits and again pain in the back is managed with lidocaine patch and neuro modulators. Laboratory Studies: Blood sugars ranged from 136 to 159. Her COVID testing today is negative. X-ray/imaging: No new x-rays or imaging. Medications: Medications have been reviewed and remain unchanged. She is receiving Sinemet 25/ 100 four times daily. Current Functional Status: Today she ambulated 25 feet twice with a rolling walker with minimum assi stance and verbal cues. She mobilized a wheelchair 75 feet twice with verbal cues for maneuvering. With occupational therapy, she was a contact guard assistance for transfers using a grab bar. She di d show improved body mechanics and sequencing of her steps. With speech therapy, she demonstrated ab ility to recall 4 of 4 unrelated pictures after 5, 10, and 15 minute increments with minimum assistan ce. Progress Towards Rehabilitation Goals: Ms. Delgadillo is making overall good progress with her goals of becoming modified independent with her cognitive functioning and her comprehension and expression. She is requiring more time to get to a modified independence level with her transfers, with her gai t of at least household distances of more than or equal to 50 feet, and going up and down 5 steps and she will require ongoing therapy for that. She does have plan for discharge tomorrow with continued aggressive therapy. Assessment: Ms. Delgadillo is a 77-year-old patient in the rehabilitation unit with Parkinson disease that did worsen over time as she was mostly bedridden with lower back pain. She has had L4 kyphopla sty and still has persistent back pain. She has depression, diabetes mellitus, dyslipidemia, and con gestive heart failure. Plan: 1.Physical, occupational, and speech therapy will continue for 3.5 hours, 5 to 7 days. 2.Continue with Sinemet 25/100 four times daily for Parkinson disease. 3.Abilify 5 mg at bedtime along with Celexa for depression. 4.Gabapentin 100 mg at bedtime for neuropathic pain. 5.For diabetes, will continue with metformin and Semglee insulin. 6.Continue with Aldactone for fluid management. 7.Continue Crestor for dyslipidemia. Comorbids That Are Continuing To Impact The Rehabilitation Process: Her Parkinson disease, which has caused her to have significant decrease in the rate of movement of all extremities is a factor impac ting her ability to quickly regain coordination, strength, and endurance. She is, however, working t [employer] it and is on 4 times daily Sinemet and without side effects related to that. However, she vale uld be watched for hallucinations, delusions, and paranoid ideation as excess dopamine can produce th ose side effects. Otherwise, her comorbids are stably managed. She does have ongoing back pain desp ite the kyphoplasty and she has had multiple chronic compression fractures in the vertebrae. The pain is managed with pain patch and the gabapentin. AMAIRANI/MODL Voice ID: [id number] Report ID: [id number]
[2023-01-12 04:27] LABS: Absolute Lymphocytes (CBC) 1.5 K/uL (0.7-4.9); Lymphocytes % 23.8 % (15.3-44.8); MCV 88.6 fL (80-100); MPV 7.6 fL (7.6-11.3)
[2023-01-12 04:38] LABS: Albumin 3.2 g/dL (3.4-5.0); Magnesium 1.9 mg/dL (1.6-2.4); Potassium 4.3 mEq/L (3.5-5.1); Prealbumin 16.4 mg/dL (20-40)
[2023-01-12] MEDS: METOPROLOL TAR 25 MG TAB PO SCH (05:07)
[2023-01-12] MEDS: LEVOTHYROXINE SOD 0.1 MG TAB PO SCH (05:35)
[2023-01-12] MEDS: CARBIDOPA/LEVODOPA 25/100 TAB PO SCH ×3 (06:52→14:24)
[2023-01-12] MEDS: INSULIN -REGULAR HUMAN 50 UNIT/0.5 ML ML SQ SCH ×2 (06:55→11:19)
[2023-01-12 07:03] VITALS: BP 132/72; TEMP 97
[2023-01-12] MEDS: ENSURE PUDDING 4 OZ CUP PO SCH (08:00)
[2023-01-12] MEDS: lisinopriL 5 MG TAB PO SCH (08:00)
[2023-01-12] MEDS: TRELEGY 100 MCG IH SCH (08:00)
[2023-01-12] MEDS: BUMETANIDE 1 MG TABLET PO SCH (08:13)
[2023-01-12] MEDS: LIDOCAINE 4% PATCH TOP SCH (08:13)
[2023-01-12] MEDS: CRANBERRY FRUIT EXTRACT 200 MG CAP PO SCH (08:14)
[2023-01-12] MEDS: METFORMIN HCL 500 MG TAB PO SCH (08:14)
[2023-01-12] MEDS: ASPIRIN EC 81 MG TAB PO SCH (08:14)
[2023-01-12] MEDS: POTASSIUM CL SA 10 MEQ TAB PO SCH (08:14)
[2023-01-12] MEDS: CITALOPRAM 10 MG TABLET PO SCH (08:14)
[2023-01-12] MEDS: APIXABAN 2.5 MG TABLET PO SCH (08:14)
[2023-01-12] MEDS: MAGNESIUM OXIDE 400 MG TAB PO SCH (09:21)
== END 2023-01-12 15:35 | DRG 560 ==
LOC: 5TH 22:06
PROVIDERS: ADMIT Psychiatry & Neurology Neurology with Special Qualifications in Child Neurology; ATTEND Psychiatry & Neurology Neurology with Special Qualifications in Child Neurology
DX: Z47.89 Encounter for other orthopedic aftercare (principal); N39.0 Urinary tract infection, site not specified; M48.56XG Collapsed vertebra, not elsewhere classified, lumbar region, subsequent encounter for fracture with delayed healing; M48.54XG Collapsed vertebra, not elsewhere classified, thoracic region, subsequent encounter for fracture with delayed healing; F03.90 Unspecified dementia, unspecified severity, without behavioral disturbance, psychotic disturbance, mood disturbance, and anxiety; G89.29 Other chronic pain; E87.6 Hypokalemia; R53.81 Other malaise; G20 Parkinson's disease; E11.9 Type 2 diabetes mellitus without complications; I11.0 Hypertensive heart disease with heart failure; I50.9 Heart failure, unspecified; E03.9 Hypothyroidism, unspecified; J44.9 Chronic obstructive pulmonary disease, unspecified; M54.9 Dorsalgia, unspecified; G62.9 Polyneuropathy, unspecified; I25.10 Atherosclerotic heart disease of native coronary artery without angina pectoris; F32.A Depression, unspecified
CPT/HCPCS: 36415; 71045; 80048; 81001; 82040; 82947; 83735; 84134; 85025; 87086; 87088; 87635; 92523; 94010; 97110; 97112; 97116; 97129; 97161; 97165; 97530; 97542; J0696; J1815; J2001; Q0162